=== PATIENT | male | born 1955 | race Caucasian/White ===

== ENCOUNTER → 2016-06-12 | Outpatient (CLI) | payer OTHER ==
[~2016-06-12] MED LIST: ACET325T96 PO; ACET650S10 PR; AMIO200T4 PO; APIX1TAB3 PO; B COLIQ PO; B-CO1TAB PO; BISA10SU3 PR; CALC667C4 PO; CHOL4POW3 PO; DXY100 PO; ESCI10TA17 PO; FERR1TAB68 PO; FINA5TAB PO; FLR1 PO; FLUD0.1T10 PO; FLUO20CA35 PO; GABA1CAP5 PO; INDO-22 PO; KFL250 PO; LATA0.009 OPL; LATA0.5S OPL; LCTX PO; LEVO100T PO; LEVO1TAB35 PO; LIDO1KIT TD; MIDO2.5T PO; MOML PO; MTRCR45 TOP; MTRG45 TOP; NRN400 PO; NUTR-773 PO; OMEP20CA9 PO; OXYC-57 PO; OXYC2.5T3 PO; POLY1POW2 PO; POLY335019 PO; PRLSR20 PO; PRMT25 PO; PROM25TA9 PO; RST15 PO; SEVE800T7 PO; SODIENE PR; SUCR1TAB29 PO; SUCR5SUS PO; TEMA15CA4 PO; VNCE1000 IV; ZNTT/150 PO; [UNRECOGNIZED DRUG - CODE] IV
--- NOTE | 2016-06-12 13:08 | DIAGNOSTIC IMAGING REPORT ---
CT SCAN OF THE ABDOMEN AND PELVIS WITHOUT IV CONTRAST CLINICAL HISTORY: End-stage renal disease. COMPARISON STUDY: Abdominal CT dated 03/06/2016. TECHNIQUE: CT scan of the abdomen and pelvis is performed from the lung bases to the proximal femora. Images are reviewed in the axial, sagittal, and coronal planes. IV contrast was not administered as per the referring clinician due to poor renal function. Note that the examination is suboptimal without oral and IV contrast. The examination is degraded by large body habitus, and streak artifact from the body wall abutting the CT gantry. Automated dose control exposure was utilized. CT DOSE: 1025.60 mGy.cm FINDINGS: Lung bases: The heart is mildly enlarged and there is a small pericardial effusion. The coronary arteries are densely calcified. There is bibasilar atelectasis. Scattered calcified granulomas are seen in the lower lobes. No airspace consolidation or pleural effusion is identified. Liver: The unenhanced liver is normal in size, contour, and attenuation. There is mild central intrahepatic biliary ductal dilatation. Small calcified hepatic granulomas are identified. Gallbladder: Surgically absent noting clips in the gallbladder fossa. Spleen: The spleen is mildly enlarged, measuring 13.5 cm in length. Pancreas: Atrophic. Adrenal glands: Unremarkable. Kidneys: The unenhanced kidneys are markedly atrophic and without hydronephrosis. Again seen is a 2.5 cm exophytic lesion arising from the interpolar right kidneys which does not meet CT criteria for a simple cyst. This was also shown to be hyperdense on the previous examination. A calcified subcapsular hematoma is again seen in the upper pole of the right kidney. Abdominal vasculature: The abdominal aorta is normal in course and caliber noting advanced atherosclerotic calcification. Stomach and bowel: There is a small to moderate hiatal hernia. There are postoperative changes consistent with a Tian-en-Y gastric bypass surgery. No bowel obstruction is seen. There is moderate colonic fecal retention. The appendix is well-visualized and normal. Peritoneum: There is a new intraperitoneal catheter identified from a midline pelvic approach. The tip is coiled in the lower pelvis. There is mild soft tissue thickening and stranding along the course of the catheter, best seen on images #[id number]. No intraperitoneal free air is seen. No abdominal ascites is identified. Lymphadenopathy: None. Pelvic viscera: Evaluation of the pelvis is degraded by streak artifact from orthopedic hardware in the left hip. There is retained IV contrast within the decompressed bladder. The bladder is decompressed and grossly unremarkable. The prostate gland is diminutive and heterogeneous. There are bilateral fat-containing inguinal hernias, left larger than right. Skeletal structures: The skeletal structures are osteopenic. No lytic or blastic lesions are seen. There are mild compression deformities of T11, T12, and L1. Mild lumbosacral spondylosis is observed. There are bilateral pars defects at L5 with minimal anterolisthesis at L5-S1. Postoperative changes are noted in the left hip. There is a healed left inferior pubic ring fracture. There are healed left-sided rib fractures and left transverse process fractures of lumbar spine. IMPRESSION: 1. A new intraperitoneal catheter is identified from a midline pelvic approach. The tip is coiled in the pelvis. Mild soft tissue thickening and stranding is identified along the course of the catheter. Infection is not excluded. 2. No intraperitoneal free air or abdominal ascites is identified. 3. There are postoperative changes consistent with a history of Tian-en-Y gastric bypass surgery. No bowel obstruction is seen. 4. The kidneys are markedly atrophic. A chronic calcified subcapsular hematoma is again noted on the right. This is unchanged from prior studies. 5. Again seen is an indeterminant 2.5 cm hyperdense exophytic lesion arising from the interpolar right kidney. This does not meet CT criteria for a simple cyst and had increased in size on prior examinations. This could represent a complex/hemorrhagic cyst. Follow-up with a nonemergent renal ultrasound is again recommended for further assessment and to exclude underlying mass lesion. 6. Cardiomegaly and small pericardial effusion. 7. Additional changes as detailed above. Electronically signed by: Wesley De Jesus M.D. 06/12/2016 1:06 PM Dictated Date/Time: 06/12/2016 12:53 PM
== END | disposition home or self-care (01) ==
LOC: C.CTS 12:09
PROVIDERS: ATTEND Surgery Vascular Surgery
DX: N18.6 End stage renal disease (principal)

== ENCOUNTER 2016-06-18 14:14 | Inpatient (IN) | payer OTHER ==
[~2016-06-18] VITALS: Ht 170.2 cm; Wt 85.7 kg
[2016-06-18] VITALS (19 sets, daily range): BP systolic 76–138; BP diastolic 45–79; PULSE 58–83; TEMP 36.5–36.8; O2SAT 92–100; BMI 28.7
[~2016-06-18 14:14] MED LIST changes: -ACET325T96 PO; -ACET650S10 PR; -APIX1TAB3 PO; -B COLIQ PO; -B-CO1TAB PO; -BISA10SU3 PR; -CHOL4POW3 PO; -DXY100 PO; -ESCI10TA17 PO; -FERR1TAB68 PO; -FLR1 PO; -FLUD0.1T10 PO; -FLUO20CA35 PO; -INDO-22 PO; -LATA0.5S OPL; -LCTX PO; -LEVO100T PO; -LEVO1TAB35 PO; -LIDO1KIT TD; -MIDO2.5T PO; -MOML PO; -MTRCR45 TOP; -MTRG45 TOP; -NRN400 PO; -OMEP20CA9 PO; -OXYC-57 PO; -POLY1POW2 PO; -PRLSR20 PO; -PROM25TA9 PO; -SEVE800T7 PO; -SODIENE PR; -SUCR1TAB29 PO; -SUCR5SUS PO; -TEMA15CA4 PO; -VNCE1000 IV; -ZNTT/150 PO; -[UNRECOGNIZED DRUG - CODE] IV
[2016-06-18] MEDS ORDERED: ONDANSETRON INJ 2 MG/ML 2 ML VIAL IV STA (14:24)
[2016-06-18] MEDS ORDERED: SODIUM CHLORIDE 0.9% 1000ML 500 ML IV STA (14:24)
[2016-06-18] MEDS ORDERED: PIPERACILLIN/TAZOBACTAM 4.5 GM/100ML D5W IV STA (14:55)
--- NOTE | 2016-06-18 15:06 | DIAGNOSTIC IMAGING REPORT ---
SINGLE VIEW CHEST CLINICAL HISTORY: Weakness. Change in mental status. FINDINGS: An AP, portable, upright chest radiograph is compared to study dated 03/06/2016. The examination is degraded by portable technique and patient rotation. A right subclavian central venous catheter is unchanged in position. The cardiomediastinal silhouette is unremarkable. There is atherosclerotic calcification of the thoracic aorta. There are low lung volumes and significant bibasilar atelectasis. No focal airspace consolidation, large pleural effusion, or pneumothorax is seen. The skeletal structures appear osteopenic. The bony thorax is grossly intact. IMPRESSION: Low lung volumes and bibasilar atelectasis with no acute cardiopulmonary abnormality. Electronically signed by: Wesley De Jesus M.D. 06/18/2016 3:05 PM Dictated Date/Time: 06/18/2016 3:04 PM
[2016-06-18 15:13] LABS: BASO % 0.5 %; BASO ABS # 0.02 K/uL (0-0.2); COMPLETE YES; EOS % 3.5 %; HEMATOCRIT 43.8 % (42-52); IG% 0.5 %; LYMPH % 21.3 %; LYMPH ABS # 0.79 K/uL (1.2-3.4); MEAN CELL VOLUME 92.8 fL (80-100); MEAN CORPUSCULAR HEMOGLOBIN 30.3 pg (25-34); MEAN CORPUSCULAR HGB CONC 32.6 g/dl (32-36); MEAN PLATELET VOLUME 11.3 fL (7.4-10.4); MONO % 14.8 %; NEUT % 59.4 %; PLATELET COUNT 206 K/uL (130-400); RED BLOOD COUNT 4.72 M/uL (4.7-6.1); WHITE BLOOD COUNT 3.71 K/uL (4.8-10.8)
[2016-06-18] MEDS ORDERED: SODIUM CHLORIDE 0.9% 500ML 500 ML IV STA ×2 (15:25→16:20)
[2016-06-18] MEDS ORDERED: BISA10SU3 PR (15:30)
[2016-06-18] MEDS ORDERED: TEMA15CA4 PO (16:11)
[2016-06-18] MEDS ORDERED: NOREPINEPHRINE BIT INJ 8 MG in DEXTROSE 5% 500ML 500 ML IV PRN (16:20)
[2016-06-18] MEDS ORDERED: ACETAMINOPHEN 325 MG TAB PO PRN (16:30)
[2016-06-18] MEDS ORDERED: ONDANSETRON INJ 2 MG/ML 2 ML VIAL IV PRN (16:30)
[2016-06-18] MEDS ORDERED: TEMAZEPAM 15 MG CAP PO PRN (16:30)
[2016-06-18] MEDS: ALBUMIN HUMAN 25% 12.5 GM/50 ML VIAL IV SCH ×2 (17:04→17:13)
[2016-06-18 17:06] LABS: PARTIAL THROMBOPLASTIN RATIO 1.2; PROTHROMBIN TIME (PATIENT) 10.7 SECONDS (9.0-12.0)
[2016-06-18 17:27] LABS: ALKALINE PHOSPHATASE 194 U/L (45-117); ALT/SGPT 38 U/L (12-78); AST/SGOT 28 U/L (15-37); BLOOD UREA NITROGEN 21 mg/dl (7-18); BUN/CREATININE RATIO 5.5 (10-20); CALCIUM 7.7 mg/dl (8.5-10.1); CARBON DIOXIDE 19 mmol/L (21-32); CHLORIDE 99 mmol/L (98-107); GLUCOSE 70 mg/dl (70-99); POTASSIUM 3.5 mmol/L (3.5-5.1); SODIUM 134 mmol/L (136-145)
--- NOTE | 2016-06-18 17:37 | History and Physical ---
History & Physical Date & Time of Service: Jun 18, 2016 at 17:10 Chief Complaint: Illness, Weakness Primary Care Physician: RV. Hudson MD History of Present Illness Source: patient, hospital records This patient is a pleasant 60-year-old male that was transferred to the emergency department from dialysis today with reports of not feeling well and hypotension. The patient has a history of end-stage renal disease and typically undergoes dialysis Saturday, Saturday and Saturday. He reports "not feeling well" earlier today. He felt like he was possibly coming down with something over the weekend. He reports a mild headache and cough. He reports eating and drinking normally over the last several days. At dialysis, the patient began complaining of not feeling well. Vital signs were taken. The patient was found to be markedly hypotensive. He was also found to be tachycardic; therefore, he was transferred to the emergency department. He was able to complete almost all of his dialysis. He reportedly only missed approximately 15 minutes. Upon arrival in the ED, an EKG was performed and shows an accelerated junctional rhythm. The patient does note some heart palpitations earlier today. He denies any chest pain or shortness of breath. He did feel nauseous yesterday, but reports no vomiting. He denies any abdominal pain or diarrhea. No fever or chills. The patient is a fairly poor historian. He also does not know his medications. Past Medical/Surgical History Medical Problems: (1) Anemia Status: Chronic (2) CAD (coronary artery disease) Permanent Comment: per records- had acute ND in 07/2001 and 03/2010. 40% LAD and 30% circ obstruction noted in records- unknown date of cath. 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 (10) History of Clostridium difficile colitis Status: Chronic (11) History of CVA (cerebrovascular accident) Status: Chronic (12) History of GI bleed Permanent Comment: EGD 02/08/15- ulceration at gastrojejunal anastomosis from bastric bypass Colonoscopy 02/08/15- internal hemorrhoids Status: Chronic (13) History of methicillin resistant staphylococcus aureus (MRSA) Status: Chronic (14) History of non-ST elevation myocardial infarction (NSTEMI) Status: Chronic (15) Hyperlipidemia Nec/Nos Status: Chronic (16) Hypertension Nos Status: Chronic (17) Hypothyroidism Nos Status: Chronic (18) Migraine Status: Chronic (19) Morbid obesity Status: Chronic (20) Polyneuropathy in diabetes Status: Chronic (21) Proteinuria Status: Chronic (22) Vitamin D deficiency Status: Chronic Surgical Problems: (1) Great toe amputation status Status: Resolved (2) H/O gastric bypass Status: Chronic (3) H/O total hip arthroplasty Status: Chronic (4) History of cholecystectomy Status: Chronic (5) History of colonoscopy with polypectomy Permanent Comment: 09/22/2014- adenomatous polyps Status: Chronic (6) History of left below knee amputation Status: Chronic Family History FH: heart disease FATHER FHx: cancer FATHER Hypertension Social History Smoking Status: Never Smoker Alcohol Use: none Drug Use: none Marital Status: single Housing status: lives alone, other (lives at home with 24-hour caregivers) Occupational Status: disabled Multi-Drug Resistant Organisms History of MDRO: Yes Type of MDRO: MRSA Allergies Coded Allergies: No Known Allergies (Verified , `, 05/01/16) Home Medications Scheduled Amiodarone Hcl (Cordarone), 200 MG PO DAILY Apixaban (Eliquis), 5 MG PO Q12 B-Complex W/ C & Folic Acid (Nephronex), 5 ML PO BID Calcium Acetate (Phoslo 667 Mg), 3 CAP PO TIDM Enteral Nutrition Formula (Nepro Carb Steady), 1 CAN PO DAILY Escitalopram (Lexapro), 10 MG PO DAILY Finasteride (Proscar), 5 MG PO DAILY Gabapentin (Neurontin), 400 MG PO HS Gabapentin (Neurontin), 800 MG PO 3XWK Gabapentin (Neurontin), 400 MG PO TID Lactobacillus Acidophilus (Lactinex), 1 TAB PO BID Latanoprost 0.005% Oph (Xalatan 0.005% Oph), 1 DROP OPL HS Levothyroxine Sodium (Synthroid), 100 MCG PO DAILY Midodrine (Midodrine HCl), 2.5 MG PO UD Omeprazole (Prilosec), 20 MG PO DAILY Polyethylene Glycol 3350 (Miralax), 17 GM PO UD Scheduled PRN Acetaminophen Tab (Tylenol), 650 MG PO Q6 PRN for Pain or Fever Bisacodyl (Dulcolax), 1 SUPP WA DAILY PRN for Constipation Calcium Acetate (Phoslo 667 Mg), 1 CAP PO BID PRN for SNACKS Oxycodone/Acetaminophen 5MG/325MG (Percocet 5MG/325MG), 1 TABLET PO PRN UD PRN for Pain Temazepam (Restoril), 15 MG PO HS PRN for Sleep Review of Systems 10 system review performed and negative unless noted in HPI or below Physical Exam Vital Signs Date Time Temp Pulse Resp B/P Pulse Ox O2 Delivery O2 Flow Rate FiO2 06/18/16 17:05 69 18 77/52 06/18/16 16:28 70 68/47 06/18/16 15:50 79 18 87/40 95 Room Air 06/18/16 15:19 75 06/18/16 14:55 36.7 118 16 84/45 95 Room Air 06/18/16 14:55 95 Room Air GENERAL: 60-year-old male, appears older than stated age, history is somewhat limited, chronically ill in appearance SKIN: The skin was without rashes, erythema, edema, or bruising. HEAD: Normocephalic atraumatic. EYES: Right pupil reactive. Extraocular muscles intact. Left pupil nonreactive. Patient is blind in the left eye. MOUTH: Oral mucosa somewhat dry NECK: No lymphadenopathy. No JVD. HEART: Regular rate and rhythm without murmurs gallops or rubs. LUNGS: Clear to auscultation bilaterally without wheezes, rales or rhonchi. No accessory muscle use. ABDOMEN: Positive bowel sounds x 4.Soft, nontender, without organomegaly. No guarding or rebound tenderness. MUSCULOSKELETAL: Left BKA noted. No erythema, warmth or edema noted of the left stump. No erythema or edema noted in the right lower extremity NEURO: Patient was alert and oriented to person and place only. Confused on the year. Moving all extremities with difficulty. Strength 5/5 throughout Diagnostics Laboratory Results Results Past 24 Hours Test 06/18/16 14:45 06/18/16 16:31 06/18/16 16:50 Range/Units White Blood Count 3.71 4.8-10.8 K/uL Red Blood Count 4.72 4.7-6.1 M/uL Hemoglobin 14.3 14.0-18.0 g/dL Hematocrit 43.8 42-52 % Mean Corpuscular Volume 92.8 80-100 fL Mean Corpuscular Hemoglobin 30.3 25-34 pg Mean Corpuscular Hemoglobin Concent 32.6 32-36 g/dl Platelet Count 206 130-400 K/uL Mean Platelet Volume 11.3 7.4-10.4 fL Neutrophils (%) (Auto) 59.4 % Lymphocytes (%) (Auto) 21.3 % Monocytes (%) (Auto) 14.8 % Eosinophils (%) (Auto) 3.5 % Basophils (%) (Auto) 0.5 % Neutrophils # (Auto) 2.20 1.4-6.5 K/uL Lymphocytes # (Auto) 0.79 1.2-3.4 K/uL Monocytes # (Auto) 0.55 0.11-0.59 K/uL Eosinophils # (Auto) 0.13 0-0.5 K/uL Basophils # (Auto) 0.02 0-0.2 K/uL RDW Standard Deviation 51.3 36.4-46.3 fL RDW Coefficient of Variation 15.3 11.5-14.5 % Immature Granulocyte % (Auto) 0.5 % Immature Granulocyte # (Auto) 0.02 0.00-0.02 K/uL Prothrombin Time 10.7 9.0-12.0 SECONDS Prothromb Time International Ratio 1.0 0.9-1.1 Activated Partial Thromboplast Time 30.1 21.0-31.0 SECONDS Partial Thromboplastin Ratio 1.2 Lactic Acid Level 1.5 0.4-2.0 mmol/L Microbiology Results 06/18/16 Blood Culture, Received Pending 06/18/16 Blood Culture, Received Pending Diagnostic Radiology SINGLE VIEW CHEST CLINICAL HISTORY: Weakness. Change in mental status. FINDINGS: An AP, portable, upright chest radiograph is compared to study dated 03/06/2016. The examination is degraded by portable technique and patient rotation. A right subclavian central venous catheter is unchanged in position. The cardiomediastinal silhouette is unremarkable. There is atherosclerotic calcification of the thoracic aorta. There are low lung volumes and significant bibasilar atelectasis. No focal airspace consolidation, large pleural effusion, or pneumothorax is seen. The skeletal structures appear osteopenic. The bony thorax is grossly intact. IMPRESSION: Low lung volumes and bibasilar atelectasis with no acute cardiopulmonary abnormality. Electronically signed by: Wesley De Jesus M.D. 06/18/2016 3:05 PM Dictated Date/Time: 06/18/2016 3:04 PM The status of this report is Signed. Draft = Not yet reviewed or approved by Radiologist. Signed = Reviewed and approved by Radiologist. EKG Initial EKG shows an accelerated junctional rhythm with a rate of 120 bpm Repeat EKG shows sinus rhythm with a first-degree AV block. 82 bpm. Q waves noted in the inferior and septal leads Impression Assessment and Plan 60-year-old male with a history of end-stage renal disease found to be hypotensive and tachycardic at dialysis today. In a junctional rhythm upon arrival into the ED. Persistent hypo-tension. ? Sepsis possibly exacerbated by HD today Sepsis-source unknown at this point -Admit to ICU -Broad spectrum ABX (given hx of MRSA) with vancomycin, Levaquin, Zosyn -Begin Levophed titrate PRN -careful for fluid overload -Begin Tamiflu 150 mg BID -send flu PCR -hewitt cx -random cortisol level -send procalcitonin ? accelerated junctional rhythm-spontaneously converted to NSR. Not new -continue tele monitoring ESRD -nephrology consult ?? hx A fib -continue Eliquis 5 mg -continue amiodarone 200 mg daily Hypothyroidism -continue Synthroid 100 g daily -Check TSH, free T4 Peripheral neuropathy -Continue gabapentin 400 mg TID DVT prophylaxis -Eliquis -TEDS, SCDs CODE STATUS -LEVEL I FULL CODE Resuscitation Status FULL RESUSCITATION VTE Prophylaxis VTE Risk Assessment Done? Y/N: Yes Risk Level: Low Given or contraindicated: Other Anticoagulation, T.E.D. Stockings, SCD's Assessment and Plan Attending addendum: I have seen and examined this patient, have directed their medical care, and agree with the H&P as noted above.
[2016-06-18 17:40] LABS: ALB/GLOB RATIO 0.7 (0.9-2)
--- NOTE | 2016-06-18 17:43 | EMERGENCY ROOM VISIT NOTE ---
History Report prepared by Jason: Hazel Tarango Under the Supervision of: Dr. Wesley De Luna M.D. First contact with patient: 14:18 Chief Complaint: ILLNESS Stated Complaint: ILLNESS, WEAKNESS History of Present Illness The patient is a 60 year old male arriving by ambulance who presents to the Emergency Room with complaints of a sudden onset of weakness during his dialysis procedure just prior to arrival. Currently, he is in mild discomfort as he states that he feels generally unwell, which began with 20 minutes left in his dialysis procedure. Since the time of onset of symptoms, the patient has felt palpitations to his chest, and he states that he feels as if his heart is beating very quickly. He denies having chest pain or feeling short of breath. Over the past week, the patient states that he has had a cough, and he has not been eating or drinking normally secondary to lack of appetite. He denies having abdominal pain, and he has not felt nauseous or experienced any episodes of vomiting. The patient receives dialysis Saturday, Saturday and Fridays, and he no longer makes urine on his own. He states that he did not begin experiencing symptoms prior to his treatment today. Patient denies recent fevers , chills or other acute complaints. Patient has history of left BKA. He denies pain or signs of infection. Source of History: patient Onset: just prior to arrival Position: other (general) Symptom Intensity: mild Quality: other (weakness) Timing: other (sudden onset) Modifying Factors (Worsening): other (during dialysis) Associated Symptoms: + cough, + weakness, No SOB, No abdominal pain, No chest pain, No chills, No diarrhea, No fevers, No nausea, No urinary symptoms, No vomiting Note: Patient experienced palpitations and tachycardia. States that he has had a lack of appetite and has not been eating or drinking normally over the past few days. Review of Systems See HPI for pertinent positives & negatives. A total of 10 systems reviewed and were otherwise negative. Past Medical & Surgical Medical Problems: (1) Anemia (2) Arrhythmia (3) Bacteremia (4) CAD (coronary artery disease) (5) Congestive Heart Failure Nos (6) Depression (7) Diab W Oth Spec Manifest, Type Ii Or Unspec Type, Not Uncntr (8) Diabetic retinopathy (9) DM type 2 (diabetes mellitus, type 2) (10) End stage renal disease (11) ESRD (end stage renal disease) on dialysis (12) Fluency disorder following cerebrovascular accident (13) History of Clostridium difficile colitis (14) History of CVA (cerebrovascular accident) (15) History of GI bleed (16) History of methicillin resistant staphylococcus aureus (MRSA) (17) History of non-ST elevation myocardial infarction (NSTEMI) (18) Hyperkalemia (19) hyperkalemia, ESRD, wrist fx (20) Hyperlipidemia Nec/Nos (21) Hypertension Nos (22) Hypothyroidism Nos (23) Migraine (24) Morbid obesity (25) Peritonitis (26) Polyneuropathy in diabetes (27) Proteinuria (28) Vitamin D deficiency Surgical Problems: (1) Great toe amputation status (2) H/O gastric bypass (3) H/O total hip arthroplasty (4) History of cholecystectomy (5) History of colonoscopy with polypectomy (6) History of left below knee amputation Family History FH: heart disease FATHER FHx: cancer FATHER Hypertension Social History Smoking Status: Never Smoker Alcohol Use: occasionally Drug Use: none Marital Status: single Housing Status: fdc Occupation Status: disabled Current/Historical Medications Scheduled Amiodarone Hcl (Cordarone), 200 MG PO DAILY Apixaban (Eliquis), 5 MG PO Q12 B-Complex W/ C & Folic Acid (Nephronex), 5 ML PO BID Calcium Acetate (Phoslo 667 Mg), 3 CAP PO TIDM Enteral Nutrition Formula (Nepro Carb Steady), 1 CAN PO DAILY Escitalopram (Lexapro), 10 MG PO DAILY Finasteride (Proscar), 5 MG PO DAILY Gabapentin (Neurontin), 400 MG PO HS Gabapentin (Neurontin), 800 MG PO 3XWK Gabapentin (Neurontin), 400 MG PO TID Lactobacillus Acidophilus (Lactinex), 1 TAB PO BID Latanoprost 0.005% Oph (Xalatan 0.005% Oph), 1 DROP OPL HS Levothyroxine Sodium (Synthroid), 100 MCG PO DAILY Midodrine (Midodrine HCl), 2.5 MG PO UD Omeprazole (Prilosec), 20 MG PO DAILY Polyethylene Glycol 3350 (Miralax), 17 GM PO UD Scheduled PRN Acetaminophen Tab (Tylenol), 650 MG PO Q6 PRN for Pain or Fever Bisacodyl (Dulcolax), 1 SUPP MS DAILY PRN for Constipation Calcium Acetate (Phoslo 667 Mg), 1 CAP PO BID PRN for SNACKS Oxycodone/Acetaminophen 5MG/325MG (Percocet 5MG/325MG), 1 TABLET PO PRN UD PRN for Pain Temazepam (Restoril), 15 MG PO HS PRN for Sleep Allergies Coded Allergies: No Known Allergies (Verified , `, 05/01/16) Physical Exam Vital Signs Date Time Temp Pulse Resp B/P Pulse Ox O2 Delivery O2 Flow Rate FiO2 06/18/16 16:28 70 68/47 06/18/16 15:50 79 18 87/40 95 Room Air 06/18/16 15:19 75 06/18/16 14:55 36.7 118 16 84/45 95 Room Air 06/18/16 14:55 95 Room Air Physical Exam GENERAL: Patient is in no acute distress. HEENT: No acute trauma, normocephalic atraumatic, mucous membranes dry, no nasal congestion, no scleral icterus. NECK: No stridor, no adenopathy, no meningismus, trachea is midline. LUNGS: Clear to auscultation bilaterally, no wheeze, no rhonchi, breath sounds equal. HEART: Tachycardic with a subtle systolic murmur, rhythm is regular. ABDOMEN: Soft, nontender, bowel sounds positive, no hernias, no peritonitis. Peritoneal dialysis catheter in place. EXTREMITIES: Left BKA, stump without infection. No edema or cellulitis to the RLE. NEUROLOGIC: Oriented x 3, no acute motor or sensory deficits, no focal weakness. SKIN: No rash, no jaundice, no diaphoresis. Medical Decision & Procedures ER Provider Diagnostic Interpretation: X-ray results as stated below per interpretation by me and the radiologist: SINGLE VIEW CHEST CLINICAL HISTORY: Weakness. Change in mental status. FINDINGS: An AP, portable, upright chest radiograph is compared to study dated 03/06/2016. The examination is degraded by portable technique and patient rotation. A right subclavian central venous catheter is unchanged in position. The cardiomediastinal silhouette is unremarkable. There is atherosclerotic calcification of the thoracic aorta. There are low lung volumes and significant bibasilar atelectasis. No focal airspace consolidation, large pleural effusion, or pneumothorax is seen. The skeletal structures appear osteopenic. The bony thorax is grossly intact. IMPRESSION: Low lung volumes and bibasilar atelectasis with no acute cardiopulmonary abnormality. Electronically signed by: Wesley De Jesus M.D. 06/18/2016 3:05 PM Dictated Date/Time: 06/18/2016 3:04 PM Laboratory Results Test 06/18/16 16:31 Prothrombin Time 10.7 SECONDS (9.0-12.0) Prothromb Time International Ratio 1.0 (0.9-1.1) Activated Partial Thromboplast Time 30.1 SECONDS (21.0-31.0) Partial Thromboplastin Ratio 1.2 Lactic Acid Level 1.5 mmol/L (0.4-2.0) Magnesium Level 2.0 mg/dl (1.8-2.4) Total Bilirubin 0.5 mg/dl (0.2-1) Aspartate Amino Transf (AST/SGOT) 28 U/L (15-37) Alanine Aminotransferase (ALT/SGPT) 38 U/L (12-78) Alkaline Phosphatase 194 U/L (45-117) Total Protein 6.8 gm/dl (6.4-8.2) Albumin 2.8 gm/dl (3.4-5.0) Globulin 4.0 gm/dl (2.5-4.0) Albumin/Globulin Ratio 0.7 (0.9-2) Thyroid Stimulating Hormone (TSH) 7.210 uIu/ml (0.300-4.500) Free Thyroxine 1.37 ng/dl (0.80-1.60) Laboratory results reviewed by me. Medications Administered Medications (Trade) Dose Ordered Sig/Rigoberto Route Start Time Stop Time Status Last Admin Dose Admin Sodium Chloride (Nss 1000ml) 500 ml @ 999 mls/hr Q31M STAT IV 06/18/16 14:24 06/18/16 14:54 DC 06/18/16 14:24 999 MLS/HR Ondansetron HCl (Zofran Inj) 4 mg NOW STAT IV 06/18/16 14:24 06/18/16 14:29 DC 06/18/16 15:46 4 MG Piperacillin Sod/ Tazobactam Sod 4.5 gm 4.5 gm NOW STAT IV 06/18/16 14:55 06/18/16 14:57 DC 06/18/16 15:47 4.5 GM Sodium Chloride 500 ml @ 999 mls/hr Q31M STAT IV 06/18/16 15:25 06/18/16 15:55 DC 06/18/16 15:25 999 MLS/HR Norepinephrine Bitartrate/ Dextrose (Levophed Inj/ D5W 500ml) 508 ml @ 0 mls/hr Q0M PRN IV 06/18/16 16:20 07/18/16 16:19 06/18/16 17:14 31.1 MLS/HR ECG Indication: weakness Rate (beats per minute): 120 Rhythm: SVT Findings: no acute ischemic change, no ectopy, other (Old septal infarct. Possible old lateral infarct. ) Change: When compared to EKG from 05/01/16, rate has increased. Repeat EKG showed sinus rhythm at 82 BPM with 1st degree AV block and old septal infarct. No ectopy or acute ischemia. ED Course 1420: The patient was evaluated in room B4. A complete history and physical exam was performed. 1424: Zofran 4 mg IV and NSS 500 ml @ 999 mls/hr IV were ordered. 1455: Zosyn 4.5 hm IV was ordered. 1525: The patient was reevaluated at this time. His heart rate had improved as it is now in the high 80's. He will continue receiving fluids as he is still hypotensive. NSS 500 ml @ 999 mls/hr IV was ordered. A repeat EKG will also be taken. 1540: Upon reevaluation, the patient's blood pressure had improved and is now at 87, systolically. I updated him on the results of his radiology reports and lab tests. The hospitalist will be contacted. 1550: After discussion with Dr. Washburn, the patient will continue to be evaluated by the [facility] hospitalist for further management. He verbalized his understanding and agreement with this treatment plan. Medical Decision The patient is a 60 year old male who presents to the ED with complaints of a sudden onset of weakness during his dialysis appointment just prior to arrival. Differential diagnoses considered include dehydration, infection, sepsis, electrolyte imbalance, pneumonia, anemia, and DE. There is no leukocytosis or concerning anemia. Lactic acid level is not elevated making severe sepsis less likely. Renal panel testing shows an elevated creatinine consistent with his need for dialysis. No significant electrolyte abnormality requiring emergent correction. There was no hepatitis. No coagulopathy. EKG initially showed an SVT, he has had this rhythm before as the same rhythm was noted on the most recent EKG. Cardiac enzyme testing did not show evidence for acute cardiac injury. Chest x-ray shows no pneumonia , pneumothorax or CHF. Blood cultures are pending. The patient was given IV saline. 2 IVs were initiated. His rhythm converted to a sinus rhythm either with the saline infusion or just spontaneously. He felt better but his blood pressure remained low. A second bolus of saline was given. Blood pressure improved slightly but did not rise to over 100 systolic. Because of concerns for possible bacterial infection/sepsis, the patient was given a dose of IV Zosyn. The patient has been aggressively managed. He requires admission/observation. I did speak with him and he feels improved, I talked with case management. The on-call hospitalist was consulted. Consults Time Called: 1540 Consulting Physician: Dr. Washburn - [facility] Returned Call: 1540 Discussed the patient's case. He will continue to be evaluated by the [facility] hospitalist for further management. Impression Primary Impression: Hypotension Additional Impressions: Dehydration Weakness Critical Care I have personally spent greater than 30 minutes of critical care time in the direct management of this patient. This includes bedside care, interpretation of diagnostic studies and testing, discussion with consultants, the patient, and family members, and other required patient management activities. This 30 minutes is in excess of all separately billable procedures. Scribe Attestation The scribe's documentation has been prepared under my direction and personally reviewed by me in its entirety. I confirm that the note above accurately reflects all work, treatment, procedures, and medical decision making performed by me. Departure Information Dispostion Being Evaluated By Hospitalist ([facility]) Referrals RV. Hudson MD (PCP) Problem Qualifiers
[2016-06-18] MEDS ORDERED: LEVOFLOXACIN 750MG / D5W IV ONE (20:00)
[2016-06-18] MEDS ORDERED: OSELTAMIVIR PHOSPHATE SUSP 30 MG/5 ML UDP PO SCH ×2 (21:00)
[2016-06-18] MEDS: GABAPENTIN 400 MG CAP PO SCH (21:00)
[2016-06-18] MEDS: INSULIN ASPART 100 UNITS/ML 3 ML PEN SC SCH (21:00)
[2016-06-18] MEDS: APIXABAN 2.5 MG TAB PO SCH (21:00)
[2016-06-18] MEDS: LATANOPROST 0.005% OP SOLN 2.5 ML BTL OPL SCH (21:00)
--- NOTE | 2016-06-18 21:06 | Critical Care Consultation ---
Critical Care Consultation Date of Consultation: Jun 18, 2016. Attending Physician: Reason for Consultation: hypotension/ sepsis History of Present Illness This is a 60 yo m from [facility] with a h/o ESRD (followed by Dr Buchanan), DMII , h/o MRSA and C diff and post [place] x 2 that presented to us in the ED with Palpitations. He states that while he was getting dialysis done this morning for his ESRD he acutely felt weak and "his heart was racing" 20 minutes prior to completion of his dialysis. He states that he did not have any dizziness, headache, cheat pain, SOB just the palpitations which concerned him. He was then transferred to the ED. While in the ED he was found to have a rapid junctional rhythm which actually spontaneously converted. He was also hypotensive with systolic ranging between 70-80 and did not respond to fluids so it was decided that he would be started on Levophed. He did respond well on the Levophed. He currently states that he feels well and all of his symptoms have resolved. This is not a new rhythm and has been noted previous EKG, this was in April. In December of this year he has also had PSVT which spontaneously converted and also had a short pause prior to NSR. When asked about cardiology he states that he thinks he has one but is unsure. He is currently on Amiodarone and Eliquis for his arrhythmias. In the fall the patient was treated for peritonitis secondary to peritoneal dialysis. The offending agent was Proteus mirabilis. At the time, the access was removed and has just recently been replaced. He is not using this as of yet because he has access in his right subclavian. His dialysis is typically MWF. Past Medical/Surgical History H/O MRSA H/O C Diff A fibb PSVT Hypercholesterolemia s/p Gastric bypass s/p Amputation of left LE Diabetic polyneuropathy Total hip arthroplasty Cholecystectomy DM II Anemia Hypothyroidism Family History FH: heart disease FATHER FHx: cancer FATHER Hypertension Social History Smoking Status: Never Smoker Alcohol Use: none Drug Use: none Marital Status: single Housing Status: jail Occupation Status: disabled Allergies Coded Allergies: No Known Allergies (Verified , `, 05/01/16) Home Medications Scheduled Amiodarone Hcl (Cordarone), 200 MG PO DAILY Apixaban (Eliquis), 5 MG PO Q12 B-Complex W/ C & Folic Acid (Nephronex), 5 ML PO BID Calcium Acetate (Phoslo 667 Mg), 3 CAP PO TIDM Enteral Nutrition Formula (Nepro Carb Steady), 1 CAN PO DAILY Escitalopram (Lexapro), 10 MG PO DAILY Finasteride (Proscar), 5 MG PO DAILY Gabapentin (Neurontin), 400 MG PO HS Gabapentin (Neurontin), 800 MG PO 3XWK Gabapentin (Neurontin), 400 MG PO TID Lactobacillus Acidophilus (Lactinex), 1 TAB PO BID Latanoprost 0.005% Oph (Xalatan 0.005% Oph), 1 DROP OPL HS Levothyroxine Sodium (Synthroid), 100 MCG PO DAILY Midodrine (Midodrine HCl), 2.5 MG PO UD Omeprazole (Prilosec), 20 MG PO DAILY Polyethylene Glycol 3350 (Miralax), 17 GM PO UD Scheduled PRN Acetaminophen Tab (Tylenol), 650 MG PO Q6 PRN for Pain or Fever Bisacodyl (Dulcolax), 1 SUPP CO DAILY PRN for Constipation Calcium Acetate (Phoslo 667 Mg), 1 CAP PO BID PRN for SNACKS Oxycodone/Acetaminophen 5MG/325MG (Percocet 5MG/325MG), 1 TABLET PO PRN UD PRN for Pain Temazepam (Restoril), 15 MG PO HS PRN for Sleep Current Inpatient Medications Current Inpatient Medications Medications (Trade) Dose Ordered Sig/Rigoberto Route Start Time Stop Time Status Last Admin Dose Admin Acetaminophen (Tylenol Tab) 650 mg Q4H PRN PO 06/18/16 16:30 07/18/16 16:29 Ondansetron HCl (Zofran Inj) 4 mg Q6H PRN IV 06/18/16 16:30 07/18/16 16:29 Pantoprazole Sodium 40 mg 40 mg DAILY PO 06/19/16 09:00 07/19/16 08:59 Norepinephrine Bitartrate 8 mg/ Dextrose 508 ml @ 0 mls/hr Q0M PRN IV 06/18/16 16:20 07/18/16 16:19 06/18/16 17:14 31.1 MLS/HR Piperacillin Sod/ Tazobactam Sod 3.375 gm/Dextrose 115 ml @ 28.75 mls/ hr Q8 IV 06/18/16 22:00 06/28/16 21:59 UNV Levofloxacin/Prmx (Levaquin / D5W/ Premixed D5W) 100 ml @ 100 mls/hr Q24H IV 06/18/16 16:30 06/25/16 16:29 UNV Albumin Human (Albumin 25%) 12.5 gm TODAY@1700,1800 IV 06/18/16 17:00 06/18/16 23:59 06/18/16 17:13 12.5 GM Insulin Aspart (novoLOG ASPART) SLIDING SCALE G... ACHS SC 06/18/16 21:00 07/18/16 20:59 Calcium Acetate (Phoslo Cap) 2,001 mg TIDM PO 06/18/16 18:00 07/18/16 17:59 Escitalopram Oxalate (Lexapro Tab) 10 mg DAILY PO 06/19/16 09:00 07/19/16 08:59 Gabapentin (Neurontin Cap) 400 mg MoWeFr@2100 PO 06/18/16 21:00 07/18/16 20:59 Gabapentin (Neurontin Cap) 400 mg SuTuThSa@0900,1400,2200 PO 06/19/16 09:00 07/19/16 08:59 Latanoprost (Xalatan Oph Soln) 1 drops HS OPL 06/18/16 21:00 07/18/16 20:59 Levothyroxine Sodium (Synthroid Tab) 100 mcg DAILYBB PO 06/19/16 07:00 07/19/16 06:59 Midodrine (Proamatine Tab) 2.5 mg MoWeFr@0900,1400 PO 06/20/16 09:00 07/20/16 08:59 Temazepam (Restoril Cap) 15 mg HS PRN PO 06/18/16 16:30 07/18/16 16:29 Apixaban (Eliquis Tab) 5 mg Q12 PO 06/18/16 21:00 07/18/16 20:59 Oseltamivir Phosphate (Tamiflu Cap) 150 mg BID PO 06/18/16 17:15 06/23/16 17:14 UNV Review of Systems Constitutional: No fever Eyes: No worsening of vision ENT: No hearing loss Respiratory: No cough, No dyspnea at rest, No dyspnea on exertion, No shortness of breath, No sputum, No wheezing Cardiovascular: + palpitations, No chest pain Abdomen: No nausea, No pain, No vomiting Neurologic: + balance problems (BL), + numbness/tingling (BL), + weakness Endocrine: No fatigue Hematologic / Lymphatic: No abnormal bleeding/bruising Integumentary: No rash Physical Exam Date Time Temp Pulse Resp B/P Pulse Ox O2 Delivery O2 Flow Rate FiO2 06/18/16 18:50 65 18 115/57 95 Room Air 06/18/16 18:20 61 15 100 Room Air 06/18/16 18:15 61 12 06/18/16 18:14 127/60 06/18/16 18:10 59 15 96 Room Air 06/18/16 18:05 60 17 95 Room Air 06/18/16 18:00 60 12 95 Room Air 06/18/16 17:59 133/67 06/18/16 17:55 58 16 91 Room Air 06/18/16 17:50 59 15 94 Room Air 06/18/16 17:49 58 16 95 Room Air 06/18/16 17:44 59 14 97 Room Air 06/18/16 17:43 139/61 Room Air 06/18/16 17:39 58 14 96 06/18/16 17:34 57 13 97 Room Air 06/18/16 17:29 55 18 126/69 89 Room Air 06/18/16 17:28 56 18 95/64 91 Room Air 06/18/16 17:18 63 16 95/64 Room Air 06/18/16 17:11 83/62 06/18/16 17:10 Room Air 06/18/16 17:05 69 18 77/52 06/18/16 16:28 70 68/47 06/18/16 15:50 79 18 87/40 95 Room Air 06/18/16 15:19 75 06/18/16 14:55 36.7 118 16 84/45 95 Room Air 06/18/16 14:55 95 Room Air General Appearance: no apparent distress Head: normocephalic, atraumatic Eyes: normal inspection ENT: normal ENT inspection Neck: supple Respiratory/Chest: lungs clear, normal breath sounds, no respiratory distress, no accessory muscle use, + decreased breath sounds (bilat bases) Cardiovascular: regular rate, rhythm, no murmur Abdomen/GI: normal bowel sounds, non tender, soft Genitourinary - Male: normal male genitalia Back: normal inspection Extremities/Musculoskelatal: normal inspection, + pertinent finding ( amputation below the left knee) Neurologic/Psych: alert, oriented x 3 Skin: normal color, warm/dry, no rash Lymphatic: no adenopathy Laboratory Results Last 24 Hours Test 06/18/16 14:45 06/18/16 16:31 06/18/16 16:50 06/18/16 17:15 White Blood Count 3.71 K/uL Red Blood Count 4.72 M/uL Hemoglobin 14.3 g/dL Hematocrit 43.8 % Mean Corpuscular Volume 92.8 fL Mean Corpuscular Hemoglobin 30.3 pg Mean Corpuscular Hemoglobin Concent 32.6 g/dl Platelet Count 206 K/uL Mean Platelet Volume 11.3 fL Neutrophils (%) (Auto) 59.4 % Lymphocytes (%) (Auto) 21.3 % Monocytes (%) (Auto) 14.8 % Eosinophils (%) (Auto) 3.5 % Basophils (%) (Auto) 0.5 % Neutrophils # (Auto) 2.20 K/uL Lymphocytes # (Auto) 0.79 K/uL Monocytes # (Auto) 0.55 K/uL Eosinophils # (Auto) 0.13 K/uL Basophils # (Auto) 0.02 K/uL RDW Standard Deviation 51.3 fL RDW Coefficient of Variation 15.3 % Immature Granulocyte % (Auto) 0.5 % Immature Granulocyte # (Auto) 0.02 K/uL Prothrombin Time 10.7 SECONDS Prothromb Time International Ratio 1.0 Activated Partial Thromboplast Time 30.1 SECONDS Partial Thromboplastin Ratio 1.2 Sodium Level 134 mmol/L Potassium Level 3.5 mmol/L Chloride Level 99 mmol/L Carbon Dioxide Level 19 mmol/L Anion Gap 16.0 mmol/L Blood Urea Nitrogen 21 mg/dl Creatinine 3.80 mg/dl Est Creatinine Clear Calc Drug Dose 21.8 ml/min Estimated GFR () 19.1 Estimated GFR (Non- 16.4 BUN/Creatinine Ratio 5.5 Random Glucose 70 mg/dl Lactic Acid Level 1.5 mmol/L Calcium Level 7.7 mg/dl Magnesium Level 2.0 mg/dl Total Bilirubin 0.5 mg/dl Aspartate Amino Transf (AST/SGOT) 28 U/L Alanine Aminotransferase (ALT/SGPT) 38 U/L Alkaline Phosphatase 194 U/L Troponin I < 0.015 ng/ml Total Protein 6.8 gm/dl Albumin 2.8 gm/dl Globulin 4.0 gm/dl Albumin/Globulin Ratio 0.7 Thyroid Stimulating Hormone (TSH) 7.210 uIu/ml Free Thyroxine 1.37 ng/dl Diagnostic Results [~ rep ct add3]] SINGLE VIEW CHEST CLINICAL HISTORY: Weakness. Change in mental status. FINDINGS: An AP, portable, upright chest radiograph is compared to study dated 03/06/2016. The examination is degraded by portable technique and patient rotation. A right subclavian central venous catheter is unchanged in position. The cardiomediastinal silhouette is unremarkable. There is atherosclerotic calcification of the thoracic aorta. There are low lung volumes and significant bibasilar atelectasis. No focal airspace consolidation, large pleural effusion, or pneumothorax is seen. The skeletal structures appear osteopenic. The bony thorax is grossly intact. IMPRESSION: Low lung volumes and bibasilar atelectasis with no acute cardiopulmonary abnormality. Assessment & Plan 1. Sepsis secondary to any unknown source 2. Junctional arrhythmia 3. ESRD requiring dialysis 4. H/O C Diff CVS - Patient has had an echo in December 2015 - EF 55-60% LV normal in size and motion - Grade I diastolic failure - No significant stenosis or regurg - Levophed for bp control - central line has been placed - Patient may be a candidate for pacemaker considering his past SVT and now symptomatic junctional rhythm - continue amiodarone for now - TSH/ T4 - Magnesium GI - Diabetic diet Renal - Nephrology has been consulted and aware of admission - recheck daily BMP ID - Levo and Zosyn - empiric Tamiflu - procalcitonin pending - consider a very short course considering his history of C Diff Endo - Insulin aspart DVT Prophylaxis - Eliquis Full code Resident Physician Supervision Note: Dr. Newman was resident physician during care of patient. I separately evaluated patient and did history and exam. I discussed the case with the resident and generally agree with the findings and plan. Agent with a significant past medical history for end-stage renal disease on dialysis, history of accelerated junctional rhythms, arrhythmia, DVT on eliquis. Presents today after palpitations and accelerated junctional rhythm while in dialysis, reportedly the patient almost finished dialysis within 15 minutes is normal in time. I suspect the etiology of the palpitations would be just electrolyte imbalances and fluid shifts from the dialysis, however infectious etiologies and a acute coronary syndrome or in the differential. Initial set of cardiac enzymes are negative, the pro calcitonin is very minimally elevated not indicative of sepsis, patient has an adequate cortisol response. This point we will continue with antibiotics, blood cultures are pending, and advanced vascular access was obtained as patient is requiring a mild doses of vasopressors. Vision is poor vascular access in the vasopressors initially being administered through a 22-gauge IV in the hand, I considered safer to be centrally administered. I have personally spent 35 minutes of critical care time in the direct management of this patient. This is a life/limb threatening event. This includes time spent evaluating patient, direct bedside care, chart review, placing orders, interpretation of diagnostic studies, discussion with consultants, patient, and family members, as well as other required patient management activities. This time is exclusive of all separately billable procedures, and teaching time and separate from and in addition to any other critical care service time. Documented By: Everton Costa, DO Additional Copies To [facility]
[2016-06-18 21:17] LABS: VEN BLD GAS O2 SATURATION 71.1 %; VEN BLOOD GAS BASE EXCESS -8.7 mmol/L
--- NOTE | 2016-06-18 21:20 | DIAGNOSTIC IMAGING REPORT ---
CHEST ONE VIEW PORTABLE CLINICAL HISTORY: Central line placement. COMPARISON STUDY: Chest radiograph performed earlier today. FINDINGS: There is no pneumothorax. There has been interval placement of a left internal jugular central line. The catheter tip projects over the lateral aspect of the left upper hemithorax. The catheter is malpositioned. A right subclavian dual lumen catheter remains in place. The lung volumes are diminished. This is unchanged. There is no evidence of pulmonary edema. IMPRESSION: No pneumothorax. Malpositioned left internal jugular central line. Catheter tip projects over the lateral aspect of the left upper hemithorax. The location of the tip is indeterminate but possibly at the junction of the left subclavian and axillary veins. Electronically signed by: Micha Dial M.D. 06/18/2016 9:18 PM Dictated Date/Time: 06/18/2016 9:16 PM
[2016-06-18 21:44] LABS: INFLUENZA A PCR Neg for Influ A (NEG); INFLUENZA B PCR Neg for Influ B (NEG)
[2016-06-18] MEDS: CALCIUM ACETATE 667MG GELCAP PO SCH (22:00)
--- NOTE | 2016-06-18 22:31 | Procedure Note ---
Procedure Note Procedure Date Jun 18, 2016. Central Line Procedure time out: side/site verified, patient ID confirmed, sterile procedure used Time of procedure: 21:30 Performed by: attending (I was present during the entire procedure and assisted ), resident Indications: poor venous access, central drug admin. Prep: chlorhexadine prep, sterile drape, sterile procedures used Anesthesia: lidocaine 1% without epi Volume anesthetic (ml's): 3 Central line lumen: triple Central line location: internal jugular (L) Additional details: ultrasound guidance, Selinger technique used, line sutured , good blood return CXR: other (Traveled into the left subclavian) Complications: other (this line was discontinued and a second triple lumen was inserted please see additional procedure) Patient tolerated procedure: well Post-procedure vital signs: reviewed and stable Procedure Note Procedure Date Jun 18, 2016. Central Line Procedure time out: side/site verified Consent obtained: written Performed by: attending Indications: poor venous access, central drug admin. Prep: chlorhexadine prep, sterile drape, sterile procedures used Anesthesia: lidocaine 1% without epi Volume anesthetic (ml's): 2 Central line lumen: triple Central line location: internal jugular (L) Additional details: Selinger technique used (central venous access was a over a guidewire exchange from the prior CVL), line sutured, good blood return CXR: appropriate position Complications: none Patient tolerated procedure: well Post-procedure vital signs: reviewed and stable
--- NOTE | 2016-06-18 22:36 | DIAGNOSTIC IMAGING REPORT ---
CHEST ONE VIEW PORTABLE HISTORY: Assess CENTRAL LINE COMPARISON: Chest 06/18/2016. FINDINGS: Left jugular central venous catheter terminates at the expected location of the distal left brachiocephalic vein. Right subclavian central venous catheter terminates in the proximal SVC, unchanged. No pneumothorax. No pleural effusions. The heart is normal in size. There are low lung volumes. IMPRESSION: The left jugular central venous catheter terminates at the expected location of the distal left brachiocephalic vein. No pneumothorax. Electronically signed by: Emilio Le M.D. 06/18/2016 10:34 PM Dictated Date/Time: 06/18/2016 10:33 PM
[2016-06-19] VITALS (41 sets, daily range): BP systolic 86–132; BP diastolic 43–74; PULSE 48–73; TEMP 36.4–36.8; O2SAT 79–97
[2016-06-19] MEDS: PIPERACILL/TAZOBAC IV 4.5 GM in DEXTROSE 5% 100ML 100 ML IV SCH ×2 (02:02→13:31)
[2016-06-19] MEDS: LEVOTHYROXINE 100 MCG TAB PO SCH (05:50)
[2016-06-19 06:17] LABS: BASO % 0.5 %; BASO ABS # 0.02 K/uL (0-0.2); COMPLETE YES; EOS % 3.2 %; HEMATOCRIT 35.2 % (42-52); IG% 0.2 %; LYMPH % 16.8 %; LYMPH ABS # 0.68 K/uL (1.2-3.4); MEAN CELL VOLUME 94.6 fL (80-100); MEAN CORPUSCULAR HEMOGLOBIN 29.6 pg (25-34); MEAN CORPUSCULAR HGB CONC 31.3 g/dl (32-36); MEAN PLATELET VOLUME 10.3 fL (7.4-10.4); MONO % 15.3 %; PLATELET COUNT 210 K/uL (130-400); RED BLOOD COUNT 3.72 M/uL (4.7-6.1); WHITE BLOOD COUNT 4.05 K/uL (4.8-10.8)
[2016-06-19 07:00] LABS: BUN/CREATININE RATIO 5.8 (10-20); CALCIUM 7.8 mg/dl (8.5-10.1); CREATININE 4.9 mg/dl (0.60-1.40); POTASSIUM 3.9 mmol/L (3.5-5.1)
[2016-06-19] MEDS: CALCIUM ACETATE 667MG GELCAP PO SCH ×3 (07:31→16:12)
[2016-06-19] MEDS: GABAPENTIN 400 MG CAP PO SCH ×3 (07:32→21:39)
[2016-06-19] MEDS: APIXABAN 2.5 MG TAB PO SCH ×2 (07:32→21:41)
[2016-06-19] MEDS: ESCITALOPRAM OXALATE 10 MG TAB PO SCH (07:32)
[2016-06-19] MEDS: INSULIN ASPART 100 UNITS/ML 3 ML PEN SC SCH ×4 (07:36→21:45)
--- NOTE | 2016-06-19 08:30 | Critical Care Progress Note ---
Critical Care Progress Note Date of Service Jun 19, 2016. Attending Dr. Costa Subjective No acute events overnight Patient slept well overnight without any other episodes of tachycardia Levophed wean is currently 0.04 and patient tolerating well Patient does not have any concerns at this time, denies any pain Denies any palpitations, abdominal discomfort, chest pain, SOB, cough, dizziness He does have BL peripheral neuropathy Objective General: not in acute distress. laying comfortably in bed Skin: no rashes noted, no suspicious lesions, no areas of inflammations/ lacerations/ erythema noted CVS: S1/ S2 noted, RRR, no rubs/ murmurs noted, no cyanosis RVS: Clear throughout bilaterally, not in acute respiratory distress, no wheezing/ rales/ crackles noted ENT: poor dentition Neck: inspection WNL, full ROM of neck, central line in left IJ ABD: BSx4, no pain/ tenderness on palpation, no organomegaly,no distention noted MSK: inspection of all limbs WNL except for a noted amputation of the left LE, no swelling/ pain on palpation of joints, requires assistance for ambulation NVS: a+O x3, mood stable Lymph: No lymphadenopathy palpable Assessment & Plan 1. Sepsis secondary to any unknown source 2. Undifferentiated Hypotension 3. Junctional arrhythmia 4. ESRD requiring dialysis 5. H/O C Diff CVS - Patient has had an echo in December 2015 - EF 55-60% LV normal in size and motion - Grade I diastolic failure - No significant stenosis or regurg - Levophed for bp control - currently on 0.04 and doing well, expect to wean by the end of today - central line has been placed - left IJ - CVS has been consulted - continue amiodarone for now - TSH/ T4- TSH elevated by free T4 WNL - Magnesium- WNL - Troponin slightly elevated, continue to trend but most likely supply and demand GI - Diabetic diet - protonix bid Renal - Nephrology has been consulted and aware of admission - plan is for dialysis tomorrow - recheck daily BMP - strict I&O ID - Levo and Zosyn - vanco added - blood cultures are pending- consider deescalating abx once resulted - empiric Tamiflu - d/c - procalcitonin 0.6- ESRD vs infection, will trend - consider a very short course considering his history of C Diff Endo - Insulin aspart DVT Prophylaxis - Xochilt Full code Resident Physician Supervision Note: Dr. Newman was resident physician during care of patient. I separately evaluated patient and did history and exam. I discussed the case with the resident and generally agree with the findings and plan. I highly doubt sepsis, and undifferentiated hypotension requiring vasoactive medications is likely multi-factorial. Repeat cortisol is low and we will give the patient 100mg hydrocortisone and this will hopefully improve his blood pressures. I have personally spent 33 minutes of critical care time in the direct management of this patient. This is a life/limb threatening event. This includes time spent evaluating patient, direct bedside care, chart review, placing orders, interpretation of diagnostic studies, discussion with consultants, patient, and family members, as well as other required patient management activities. This time is exclusive of all separately billable procedures, and teaching time and separate from and in addition to any other critical care service time. Documented By: Everton Costa DO Data Medications: Current Inpatient Medications Medications (Trade) Dose Ordered Sig/Rigoberto Route Start Time Stop Time Status Last Admin Dose Admin Acetaminophen (Tylenol Tab) 650 mg Q4H PRN PO 06/18/16 16:30 07/18/16 16:29 Ondansetron HCl (Zofran Inj) 4 mg Q6H PRN IV 06/18/16 16:30 07/18/16 16:29 Pantoprazole Sodium 40 mg 40 mg DAILY PO 06/19/16 09:00 07/19/16 08:59 06/19/16 07:33 40 MG Norepinephrine Bitartrate 8 mg/ Dextrose 508 ml @ 0 mls/hr Q0M PRN IV 06/18/16 16:20 07/18/16 16:19 06/18/16 17:14 31.1 MLS/HR Piperacillin Sod/ Tazobactam Sod 4.5 gm/Dextrose 120 ml @ 30 mls/hr Q12@0200,1400 IV 06/19/16 02:00 06/28/16 21:59 06/19/16 02:02 30 MLS/HR Levofloxacin/Prmx (Levaquin / D5W/ Premixed D5W) 100 ml @ 100 mls/hr Q48H IV 06/20/16 20:00 06/25/16 23:59 Insulin Aspart (novoLOG ASPART) SLIDING SCALE G... ACHS SC 06/18/16 21:00 07/18/16 20:59 Calcium Acetate (Phoslo Cap) 2,001 mg TIDM PO 06/18/16 18:00 07/18/16 17:59 06/19/16 07:31 2,001 MG Escitalopram Oxalate (Lexapro Tab) 10 mg DAILY PO 06/19/16 09:00 07/19/16 08:59 06/19/16 07:32 10 MG Gabapentin (Neurontin Cap) 400 mg MoWeFr@2100 PO 06/18/16 21:00 07/18/16 20:59 06/18/16 21:00 400 MG Gabapentin (Neurontin Cap) 400 mg SuTuThSa@0900,1400,2200 PO 06/19/16 09:00 07/19/16 08:59 06/19/16 07:32 400 MG Latanoprost (Xalatan Oph Soln) 1 drops HS OPL 06/18/16 21:00 07/18/16 20:59 Levothyroxine Sodium (Synthroid Tab) 100 mcg DAILYBB PO 06/19/16 06:00 07/19/16 06:59 06/19/16 05:50 100 MCG Midodrine (Proamatine Tab) 2.5 mg MoWeFr@0900,1400 PO 06/20/16 09:00 07/20/16 08:59 Temazepam (Restoril Cap) 15 mg HS PRN PO 06/18/16 16:30 07/18/16 16:29 Apixaban (Eliquis Tab) 5 mg Q12 PO 06/18/16 21:00 07/18/16 20:59 06/19/16 07:32 5 MG I & O: 24-Hour Column 06/19/16 08:00 Intake Total 807 ml Balance 807 ml Vital Signs: Date Time Temp Pulse Resp B/P Pulse Ox O2 Delivery O2 Flow Rate FiO2 06/19/16 06:00 60 12 121/61 96 Room Air 06/19/16 04:00 Room Air 06/19/16 04:00 36.8 63 13 125/71 97 Room Air 06/19/16 02:00 62 13 86/43 93 Room Air 06/18/16 23:59 Room Air 06/18/16 23:59 36.8 72 12 115/55 94 Room Air 06/18/16 22:58 66 18 118/71 95 06/18/16 22:28 64 11 112/62 92 06/18/16 22:13 71 12 95/59 94 06/18/16 21:58 72 13 101/58 92 06/18/16 21:43 72 11 110/53 94 06/18/16 21:28 78 13 102/58 96 06/18/16 21:14 81 10 117/69 95 06/18/16 20:58 83 12 138/79 99 06/18/16 20:43 64 11 122/72 100 06/18/16 20:28 59 11 124/65 100 06/18/16 20:13 58 12 138/64 99 06/18/16 20:00 Room Air 06/18/16 20:00 36.5 60 12 98 06/18/16 19:58 59 9 134/64 97 06/18/16 19:53 69 14 113/62 97 06/18/16 19:45 70 14 98 06/18/16 19:35 75 12 76/45 93 06/18/16 19:30 63 10 94 06/18/16 19:13 69 16 96/56 06/18/16 18:50 65 18 115/57 95 Room Air 06/18/16 18:20 61 15 100 Room Air 06/18/16 18:15 61 12 06/18/16 18:14 127/60 06/18/16 18:10 59 15 96 Room Air 06/18/16 18:05 60 17 95 Room Air 06/18/16 18:00 60 12 95 Room Air 06/18/16 17:59 133/67 06/18/16 17:55 58 16 91 Room Air 06/18/16 17:50 59 15 94 Room Air 06/18/16 17:49 58 16 95 Room Air 06/18/16 17:44 59 14 97 Room Air 06/18/16 17:43 139/61 Room Air 06/18/16 17:39 58 14 96 06/18/16 17:34 57 13 97 Room Air 06/18/16 17:29 55 18 126/69 89 Room Air 06/18/16 17:28 56 18 95/64 91 Room Air 06/18/16 17:18 63 16 95/64 Room Air 06/18/16 17:11 83/62 06/18/16 17:10 Room Air 06/18/16 17:05 69 18 77/52 06/18/16 16:28 70 68/47 06/18/16 15:50 79 18 87/40 95 Room Air 06/18/16 15:19 75 06/18/16 14:55 36.7 118 16 84/45 95 Room Air 06/18/16 14:55 95 Room Air Laboratory Results: Last 24 Hours Test 06/18/16 14:45 06/18/16 16:31 06/18/16 19:45 06/18/16 20:35 White Blood Count 3.71 K/uL Red Blood Count 4.72 M/uL Hemoglobin 14.3 g/dL Hematocrit 43.8 % Mean Corpuscular Volume 92.8 fL Mean Corpuscular Hemoglobin 30.3 pg Mean Corpuscular Hemoglobin Concent 32.6 g/dl Platelet Count 206 K/uL Mean Platelet Volume 11.3 fL Neutrophils (%) (Auto) 59.4 % Lymphocytes (%) (Auto) 21.3 % Monocytes (%) (Auto) 14.8 % Eosinophils (%) (Auto) 3.5 % Basophils (%) (Auto) 0.5 % Neutrophils # (Auto) 2.20 K/uL Lymphocytes # (Auto) 0.79 K/uL Monocytes # (Auto) 0.55 K/uL Eosinophils # (Auto) 0.13 K/uL Basophils # (Auto) 0.02 K/uL RDW Standard Deviation 51.3 fL RDW Coefficient of Variation 15.3 % Immature Granulocyte % (Auto) 0.5 % Immature Granulocyte # (Auto) 0.02 K/uL Prothrombin Time 10.7 SECONDS Prothromb Time International Ratio 1.0 Activated Partial Thromboplast Time 30.1 SECONDS Partial Thromboplastin Ratio 1.2 Sodium Level 134 mmol/L Potassium Level 3.5 mmol/L Chloride Level 99 mmol/L Carbon Dioxide Level 19 mmol/L Anion Gap 16.0 mmol/L Blood Urea Nitrogen 21 mg/dl Creatinine 3.80 mg/dl Est Creatinine Clear Calc Drug Dose 21.8 ml/min Estimated GFR () 19.1 Estimated GFR (Non- 16.4 BUN/Creatinine Ratio 5.5 Random Glucose 70 mg/dl Lactic Acid Level 1.5 mmol/L Calcium Level 7.7 mg/dl Magnesium Level 2.0 mg/dl Total Bilirubin 0.5 mg/dl Aspartate Amino Transf (AST/SGOT) 28 U/L Alanine Aminotransferase (ALT/SGPT) 38 U/L Alkaline Phosphatase 194 U/L Troponin I < 0.015 ng/ml Total Protein 6.8 gm/dl Albumin 2.8 gm/dl Globulin 4.0 gm/dl Albumin/Globulin Ratio 0.7 Thyroid Stimulating Hormone (TSH) 7.210 uIu/ml Free Thyroxine 1.37 ng/dl Influenza Type A (RT-PCR) Neg for Influ A Influenza Type B (RT-PCR) Neg for Influ B Bedside Glucose 132 mg/dl Test 06/18/16 20:38 06/19/16 05:16 06/19/16 05:23 Venous Blood pH 7.26 Venous Blood Partial Pressure CO2 40 mmHg Venous Blood Partial Pressure O2 42 mmHg Venous Blood HCO3 18 mmol/L Venous Blood Oxygen Saturation 71.1 % Venous Blood Base Excess -8.7 mmol/L Procalcitonin 0.60 ng/mL Random Cortisol 18.07 mcg/dl White Blood Count 4.05 K/uL Red Blood Count 3.72 M/uL Hemoglobin 11.0 g/dL Hematocrit 35.2 % Mean Corpuscular Volume 94.6 fL Mean Corpuscular Hemoglobin 29.6 pg Mean Corpuscular Hemoglobin Concent 31.3 g/dl Platelet Count 210 K/uL Mean Platelet Volume 10.3 fL Neutrophils (%) (Auto) 64.0 % Lymphocytes (%) (Auto) 16.8 % Monocytes (%) (Auto) 15.3 % Eosinophils (%) (Auto) 3.2 % Basophils (%) (Auto) 0.5 % Neutrophils # (Auto) 2.59 K/uL Lymphocytes # (Auto) 0.68 K/uL Monocytes # (Auto) 0.62 K/uL Eosinophils # (Auto) 0.13 K/uL Basophils # (Auto) 0.02 K/uL RDW Standard Deviation 51.9 fL RDW Coefficient of Variation 15.0 % Immature Granulocyte % (Auto) 0.2 % Immature Granulocyte # (Auto) 0.01 K/uL Sodium Level 135 mmol/L Potassium Level 3.9 mmol/L Chloride Level 99 mmol/L Carbon Dioxide Level 21 mmol/L Anion Gap 15.0 mmol/L Blood Urea Nitrogen 29 mg/dl Creatinine 4.90 mg/dl Est Creatinine Clear Calc Drug Dose 16.7 ml/min Estimated GFR () 14.0 Estimated GFR (Non- 12.1 BUN/Creatinine Ratio 5.8 Random Glucose 89 mg/dl Calcium Level 7.8 mg/dl Bedside Glucose 89 mg/dl
[2016-06-19] MEDS ORDERED: VANCOMYCIN 1GM/270ML NSS IV SCH (08:45)
[2016-06-19] MEDS ORDERED: PANTOprazole SOD 40 MG TAB PO SCH (09:00)
--- NOTE | 2016-06-19 09:10 | Progress Note ---
Subjective Date of Service: Jun 19, 2016. Subjective Pt evaluation today including: conversation w/ patient, physical exam, chart review, lab review, review of studies Problem List Medical Problems: (1) Abdominal pain Status: Acute (2) C. difficile colitis Status: Acute (3) Colitis Status: Acute (4) Dehydration Status: Acute (5) Fever Status: Acute (6) Hypotension Status: Acute (7) Infection associated with peritoneal dialysis catheter Status: Acute (8) Periumbilical abdominal pain Status: Acute (9) Weakness Status: Acute Review of Systems Constitutional: No fever Eyes: No worsening of vision ENT: No hearing loss Respiratory: No cough, No shortness of breath Cardiac: No chest pain, No palpitations Abdomen: No diarrhea, No nausea, No pain, No vomiting Musculoskeletal: No joint pain Endo: No fatigue Skin: No rash Medications Current Inpatient Medications Medications (Trade) Dose Ordered Sig/Rigoberto Route Start Time Stop Time Status Last Admin Dose Admin Acetaminophen (Tylenol Tab) 650 mg Q4H PRN PO 06/18/16 16:30 07/18/16 16:29 Ondansetron HCl (Zofran Inj) 4 mg Q6H PRN IV 06/18/16 16:30 07/18/16 16:29 Pantoprazole Sodium 40 mg 40 mg DAILY PO 06/19/16 09:00 07/19/16 08:59 06/19/16 07:33 40 MG Norepinephrine Bitartrate 8 mg/ Dextrose 508 ml @ 0 mls/hr Q0M PRN IV 06/18/16 16:20 07/18/16 16:19 06/18/16 17:14 31.1 MLS/HR Piperacillin Sod/ Tazobactam Sod 4.5 gm/Dextrose 120 ml @ 30 mls/hr Q12@0200,1400 IV 06/19/16 02:00 06/28/16 21:59 06/19/16 02:02 30 MLS/HR Levofloxacin/Prmx (Levaquin / D5W/ Premixed D5W) 100 ml @ 100 mls/hr Q48H IV 06/20/16 20:00 06/25/16 23:59 Insulin Aspart (novoLOG ASPART) SLIDING SCALE G... ACHS SC 06/18/16 21:00 07/18/16 20:59 Calcium Acetate (Phoslo Cap) 2,001 mg TIDM PO 06/18/16 18:00 07/18/16 17:59 06/19/16 07:31 2,001 MG Escitalopram Oxalate (Lexapro Tab) 10 mg DAILY PO 06/19/16 09:00 07/19/16 08:59 06/19/16 07:32 10 MG Gabapentin (Neurontin Cap) 400 mg MoWeFr@2100 PO 06/18/16 21:00 07/18/16 20:59 06/18/16 21:00 400 MG Gabapentin (Neurontin Cap) 400 mg SuTuThSa@0900,1400,2200 PO 06/19/16 09:00 07/19/16 08:59 06/19/16 07:32 400 MG Latanoprost (Xalatan Oph Soln) 1 drops HS OPL 06/18/16 21:00 07/18/16 20:59 Levothyroxine Sodium (Synthroid Tab) 100 mcg DAILYBB PO 06/19/16 06:00 07/19/16 06:59 06/19/16 05:50 100 MCG Midodrine (Proamatine Tab) 2.5 mg MoWeFr@0900,1400 PO 06/20/16 09:00 07/20/16 08:59 Temazepam (Restoril Cap) 15 mg HS PRN PO 06/18/16 16:30 07/18/16 16:29 Apixaban (Eliquis Tab) 5 mg Q12 PO 06/18/16 21:00 07/18/16 20:59 06/19/16 07:32 5 MG Objective Vital Signs Date Time Temp Pulse Resp B/P Pulse Ox O2 Delivery O2 Flow Rate FiO2 06/19/16 06:00 60 12 121/61 96 Room Air 06/19/16 04:00 Room Air 06/19/16 04:00 36.8 63 13 125/71 97 Room Air 06/19/16 02:00 62 13 86/43 93 Room Air 06/18/16 23:59 Room Air 06/18/16 23:59 36.8 72 12 115/55 94 Room Air 06/18/16 22:58 66 18 118/71 95 06/18/16 22:28 64 11 112/62 92 06/18/16 22:13 71 12 95/59 94 06/18/16 21:58 72 13 101/58 92 06/18/16 21:43 72 11 110/53 94 06/18/16 21:28 78 13 102/58 96 06/18/16 21:14 81 10 117/69 95 06/18/16 20:58 83 12 138/79 99 06/18/16 20:43 64 11 122/72 100 06/18/16 20:28 59 11 124/65 100 06/18/16 20:13 58 12 138/64 99 06/18/16 20:00 Room Air 06/18/16 20:00 36.5 60 12 98 06/18/16 19:58 59 9 134/64 97 06/18/16 19:53 69 14 113/62 97 06/18/16 19:45 70 14 98 06/18/16 19:35 75 12 76/45 93 06/18/16 19:30 63 10 94 06/18/16 19:13 69 16 96/56 06/18/16 18:50 65 18 115/57 95 Room Air 06/18/16 18:20 61 15 100 Room Air 06/18/16 18:15 61 12 06/18/16 18:14 127/60 06/18/16 18:10 59 15 96 Room Air 06/18/16 18:05 60 17 95 Room Air 06/18/16 18:00 60 12 95 Room Air 06/18/16 17:59 133/67 06/18/16 17:55 58 16 91 Room Air 06/18/16 17:50 59 15 94 Room Air 06/18/16 17:49 58 16 95 Room Air 06/18/16 17:44 59 14 97 Room Air 06/18/16 17:43 139/61 Room Air 06/18/16 17:39 58 14 96 06/18/16 17:34 57 13 97 Room Air 06/18/16 17:29 55 18 126/69 89 Room Air 06/18/16 17:28 56 18 95/64 91 Room Air 06/18/16 17:18 63 16 95/64 Room Air 06/18/16 17:11 83/62 06/18/16 17:10 Room Air 06/18/16 17:05 69 18 77/52 06/18/16 16:28 70 68/47 06/18/16 15:50 79 18 87/40 95 Room Air 06/18/16 15:19 75 06/18/16 14:55 36.7 118 16 84/45 95 Room Air 06/18/16 14:55 95 Room Air Physical Exam General Appearance: WD/WN, no apparent distress Eyes: normal inspection, PERRL, EOMI ENT: normal ENT inspection, hearing grossly normal Neck: supple, thyroid normal Respiratory/Chest: lungs clear, normal breath sounds, no respiratory distress, no accessory muscle use, + pertinent finding (HD cath looks clean) Cardiovascular: regular rate, rhythm, no edema, no gallop, no JVD, no murmur Abdomen: normal bowel sounds, non tender, soft, + pertinent finding (PD cath looks clean, minimal discharge, not purulent) Extremities: normal range of motion, non-tender, normal inspection Neurologic/Psychiatric: manager of global II-XII nml as tested, no motor/sensory deficits, alert, normal mood/affect Skin: normal color, warm/dry, no rash Laboratory Results Last 24 Hours Test 06/18/16 14:45 06/18/16 16:31 06/18/16 19:45 06/18/16 20:35 White Blood Count 3.71 K/uL Red Blood Count 4.72 M/uL Hemoglobin 14.3 g/dL Hematocrit 43.8 % Mean Corpuscular Volume 92.8 fL Mean Corpuscular Hemoglobin 30.3 pg Mean Corpuscular Hemoglobin Concent 32.6 g/dl Platelet Count 206 K/uL Mean Platelet Volume 11.3 fL Neutrophils (%) (Auto) 59.4 % Lymphocytes (%) (Auto) 21.3 % Monocytes (%) (Auto) 14.8 % Eosinophils (%) (Auto) 3.5 % Basophils (%) (Auto) 0.5 % Neutrophils # (Auto) 2.20 K/uL Lymphocytes # (Auto) 0.79 K/uL Monocytes # (Auto) 0.55 K/uL Eosinophils # (Auto) 0.13 K/uL Basophils # (Auto) 0.02 K/uL RDW Standard Deviation 51.3 fL RDW Coefficient of Variation 15.3 % Immature Granulocyte % (Auto) 0.5 % Immature Granulocyte # (Auto) 0.02 K/uL Prothrombin Time 10.7 SECONDS Prothromb Time International Ratio 1.0 Activated Partial Thromboplast Time 30.1 SECONDS Partial Thromboplastin Ratio 1.2 Sodium Level 134 mmol/L Potassium Level 3.5 mmol/L Chloride Level 99 mmol/L Carbon Dioxide Level 19 mmol/L Anion Gap 16.0 mmol/L Blood Urea Nitrogen 21 mg/dl Creatinine 3.80 mg/dl Est Creatinine Clear Calc Drug Dose 21.8 ml/min Estimated GFR () 19.1 Estimated GFR (Non- 16.4 BUN/Creatinine Ratio 5.5 Random Glucose 70 mg/dl Lactic Acid Level 1.5 mmol/L Calcium Level 7.7 mg/dl Magnesium Level 2.0 mg/dl Total Bilirubin 0.5 mg/dl Aspartate Amino Transf (AST/SGOT) 28 U/L Alanine Aminotransferase (ALT/SGPT) 38 U/L Alkaline Phosphatase 194 U/L Troponin I < 0.015 ng/ml Total Protein 6.8 gm/dl Albumin 2.8 gm/dl Globulin 4.0 gm/dl Albumin/Globulin Ratio 0.7 Thyroid Stimulating Hormone (TSH) 7.210 uIu/ml Free Thyroxine 1.37 ng/dl Influenza Type A (RT-PCR) Neg for Influ A Influenza Type B (RT-PCR) Neg for Influ B Bedside Glucose 132 mg/dl Test 06/18/16 20:38 06/19/16 05:16 06/19/16 05:23 Venous Blood pH 7.26 Venous Blood Partial Pressure CO2 40 mmHg Venous Blood Partial Pressure O2 42 mmHg Venous Blood HCO3 18 mmol/L Venous Blood Oxygen Saturation 71.1 % Venous Blood Base Excess -8.7 mmol/L Procalcitonin 0.60 ng/mL Random Cortisol 18.07 mcg/dl White Blood Count 4.05 K/uL Red Blood Count 3.72 M/uL Hemoglobin 11.0 g/dL Hematocrit 35.2 % Mean Corpuscular Volume 94.6 fL Mean Corpuscular Hemoglobin 29.6 pg Mean Corpuscular Hemoglobin Concent 31.3 g/dl Platelet Count 210 K/uL Mean Platelet Volume 10.3 fL Neutrophils (%) (Auto) 64.0 % Lymphocytes (%) (Auto) 16.8 % Monocytes (%) (Auto) 15.3 % Eosinophils (%) (Auto) 3.2 % Basophils (%) (Auto) 0.5 % Neutrophils # (Auto) 2.59 K/uL Lymphocytes # (Auto) 0.68 K/uL Monocytes # (Auto) 0.62 K/uL Eosinophils # (Auto) 0.13 K/uL Basophils # (Auto) 0.02 K/uL RDW Standard Deviation 51.9 fL RDW Coefficient of Variation 15.0 % Immature Granulocyte % (Auto) 0.2 % Immature Granulocyte # (Auto) 0.01 K/uL Sodium Level 135 mmol/L Potassium Level 3.9 mmol/L Chloride Level 99 mmol/L Carbon Dioxide Level 21 mmol/L Anion Gap 15.0 mmol/L Blood Urea Nitrogen 29 mg/dl Creatinine 4.90 mg/dl Est Creatinine Clear Calc Drug Dose 16.7 ml/min Estimated GFR () 14.0 Estimated GFR (Non- 12.1 BUN/Creatinine Ratio 5.8 Random Glucose 89 mg/dl Calcium Level 7.8 mg/dl Troponin I 0.047 ng/ml Bedside Glucose 89 mg/dl Assessment and Plan This is a 60 yo m from [facility] with a h/o ESRD (followed by Dr Buchanan), DMII , h/o MRSA and C diff and post NV x 2 that presented to us in the ED with Palpitations yesterday during dialysis he developed rapid junctional rhythm which actually spontaneously converted also had systolic hypotension between 70-80. 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
[2016-06-19] MEDS ORDERED: VANCOMYCIN CONSULT ACTIVE PRN (09:45)
[2016-06-19] MEDS ORDERED: VANCOMYCIN INJ 1,700 MG in SODIUM CHLORIDE 0.9% 500ML 500 ML IV ONE (10:00)
--- NOTE | 2016-06-19 10:20 | Pharmacy Progress Note ---
Pharmacy Antibiotic Consult Date of Service: Jun 19, 2016. Pharmacy Dosing Scope Pharmacy is consulted to initiate Vanco/Zosyn IV dosing therapy, order appropriate labs and adjust drug dose/frequency. Subjective The patient is a 60 year old male admitted on Jun 18, 2016 at 16:37. Objective Height (Feet): 5 Height (Inches): 7.00 Weight (Kilograms): 80.800 Lab Results (24hrs): Item Value Date Time Creatinine 4.90 mg/dl *H 06/19/16 0516 Est Creatinine Clear Calc Drug Dose 16.7 ml/min 06/19/16 0516 Laboratory Tests Test 06/18/16 14:45 06/18/16 16:31 06/19/16 05:16 White Blood Count 3.71 K/uL 4.05 K/uL Red Blood Count 4.72 M/uL 3.72 M/uL Hemoglobin 14.3 g/dL 11.0 g/dL Hematocrit 43.8 % 35.2 % Mean Corpuscular Volume 92.8 fL 94.6 fL Mean Corpuscular Hemoglobin 30.3 pg 29.6 pg Mean Corpuscular Hemoglobin Concent 32.6 g/dl 31.3 g/dl Platelet Count 206 K/uL 210 K/uL Mean Platelet Volume 11.3 fL 10.3 fL Neutrophils (%) (Auto) 59.4 % 64.0 % Lymphocytes (%) (Auto) 21.3 % 16.8 % Monocytes (%) (Auto) 14.8 % 15.3 % Eosinophils (%) (Auto) 3.5 % 3.2 % Basophils (%) (Auto) 0.5 % 0.5 % Neutrophils # (Auto) 2.20 K/uL 2.59 K/uL Lymphocytes # (Auto) 0.79 K/uL 0.68 K/uL Monocytes # (Auto) 0.55 K/uL 0.62 K/uL Eosinophils # (Auto) 0.13 K/uL 0.13 K/uL Basophils # (Auto) 0.02 K/uL 0.02 K/uL BUN/Creatinine Ratio 5.5 5.8 Blood Urea Nitrogen 21 mg/dl 29 mg/dl Creatinine 3.80 mg/dl 4.90 mg/dl Micro Results: Item Value Date Time MRSA DNA Surveillance Screen - Final Complete 06/18/161944 Nasal Specimen Negative for MRSA by DNA Probe Item Value Date Time Blood Culture Received 1/16/17 1450 Blood Pending Blood Culture Received 06/18/16 1445 Blood Pending Assessment & Plan Pt is a 60yo M resident of [facility] w h/o ESRD, C.diff, MRSA, & DMII. In ED he was found to be hypotensive sys 70/80s which did not respond to IFV. He is now receiving pressor/inotropic support in the form of Levophed. He is afebrile , RR WNL, BP still low. WBC WNL. Mr. Guthrie receives HD MWF. BC are pending. MRSA nasal swab is negative but he has multiple risk factors for a MRSA infxn. Vanco * Loading dose: 1700mg (~20mg/kg) IV X 1 dose then: * Goal random level estimate: between 15 - 20 mcg/mL. * Random level has been ordered for: with AM labs, day of HD. Zosyn * Received one time 4.5g 30 min infsn * Will receive subsequent 4.5g q12h EI. appropriate for HD and clinical status Thank you for consulting the pharmacy kinetic team and including us in the care of Mr. Guthrie Pharmacy will continue to follow and will adjust dose/frequency as necessary. Thank you
--- NOTE | 2016-06-19 10:48 | Cardiology Consultation ---
Cardiology Consultation Date of Consultation: Jun 19, 2016. Requesting Physician: Dr. Newman Reason for Consultation: SVT Pt evaluation today including: conversation w/ patient, physical exam, lab review, review of studies, review of inpatient medication list History of Present Illness This is a very pleasant 60-year-old gentleman who has a history of end-stage kidney disease for which he is on dialysis. He has a history of diabetes mellitus, he does have nonobstructive coronary artery disease identified at catheterization 2009. He had an admission for MRSA bacteremia 12/28/2015 and developed supraventricular tachycardia. 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 It appears from monitoring that he had several episodes terminated with adenosine. He was started on amiodarone during that admission and remains on it. He was also started on Eliquis I believe, I don't know the specific indications. This admission was prompted by hypotension and tachycardia identified on hemodialysis, his blood pressure was in the 60-80 mmHg range during the emergency room. He was started on pressors and his arrhythmia terminated spontaneously to sinus rhythm. He remained hypotensive however after termination of the arrhythmia but apparently felt better. It sounds as though he is aware of the arrhythmia historically but it doesn't typically bother him very much, he describes feeling his heart racing (which he also noted during dialysis previous to this admission) but this is relatively infrequent, perhaps twice a year, and he thinks only lasts several minutes. Clearly the episode that prompted this admission and during his last admission was much longer. At the time of my evaluation he is feeling well, he has no specific complaints. He has no chest discomfort, did not of chest discomfort during this event and is not short of breath. Past Medical/Surgical History Medical Problems: (1) Anemia Status: Chronic (2) CAD (coronary artery disease) Permanent Comment: per records- had acute ND in 07/2001 and 03/2010. 40% LAD and 30% circ obstruction noted in records- unknown date of cath. 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 (10) History of Clostridium difficile colitis Status: Chronic (11) History of CVA (cerebrovascular accident) Status: Chronic (12) History of GI bleed Permanent Comment: EGD 02/08/15- ulceration at gastrojejunal anastomosis from bastric bypass Colonoscopy 02/08/15- internal hemorrhoids Status: Chronic (13) History of methicillin resistant staphylococcus aureus (MRSA) Status: Chronic (14) History of non-ST elevation myocardial infarction (NSTEMI) Status: Chronic (15) Hyperlipidemia Nec/Nos Status: Chronic (16) Hypertension Nos Status: Chronic (17) Hypothyroidism Nos Status: Chronic (18) Migraine Status: Chronic (19) Morbid obesity Status: Chronic (20) Polyneuropathy in diabetes Status: Chronic (21) Proteinuria Status: Chronic (22) Vitamin D deficiency Status: Chronic Surgical Problems: (1) Great toe amputation status Status: Resolved (2) H/O gastric bypass Status: Chronic (3) H/O total hip arthroplasty Status: Chronic (4) History of cholecystectomy Status: Chronic (5) History of colonoscopy with polypectomy Permanent Comment: 09/22/2014- adenomatous polyps Status: Chronic (6) History of left below knee amputation Status: Chronic Family History FH: heart disease FATHER FHx: cancer FATHER Hypertension Social History Smoking Status: Never Smoker History of Alcohol Use: Yes (Twice/year) Review of Systems Constitutional: No fever, No weakness, No weight loss Respiratory: No cough, No shortness of breath Cardiac: No chest pain, No palpitations Abdomen: No GI bleeding, No diarrhea, No nausea, No pain, No vomiting Male : No nocturia more than once/night, No sexual dysfunction, No slowing stream, No urinary frequency Neurologic: No balance problems, No numbness/tingling, No paralysis, No weakness Heme: No abnormal bleeding/bruising, No clotting problems Endo: No fatigue Skin: No problem reported All Other Systems: Reviewed and Negative Allergies Coded Allergies: No Known Allergies (Verified , `, 05/01/16) Medications Current Inpatient Medications Medications (Trade) Dose Ordered Sig/Rigoberto Route Start Time Stop Time Status Last Admin Dose Admin Acetaminophen (Tylenol Tab) 650 mg Q4H PRN PO 06/18/16 16:30 07/18/16 16:29 Ondansetron HCl (Zofran Inj) 4 mg Q6H PRN IV 06/18/16 16:30 07/18/16 16:29 Pantoprazole Sodium 40 mg 40 mg DAILY PO 06/19/16 09:00 07/19/16 08:59 06/19/16 07:33 40 MG Norepinephrine Bitartrate 8 mg/ Dextrose 508 ml @ 0 mls/hr Q0M PRN IV 06/18/16 16:20 07/18/16 16:19 06/18/16 17:14 31.1 MLS/HR Piperacillin Sod/ Tazobactam Sod/ Dextrose (Zosyn Iv/D5 100ml) 120 ml @ 30 mls/hr Q12@0200,1400 IV 06/19/16 02:00 06/28/16 21:59 06/19/16 02:02 30 MLS/HR Insulin Aspart (novoLOG ASPART) SLIDING SCALE G... ACHS SC 06/18/16 21:00 07/18/16 20:59 Calcium Acetate (Phoslo Cap) 2,001 mg TIDM PO 06/18/16 18:00 07/18/16 17:59 06/19/16 07:31 2,001 MG Escitalopram Oxalate (Lexapro Tab) 10 mg DAILY PO 06/19/16 09:00 07/19/16 08:59 06/19/16 07:32 10 MG Gabapentin (Neurontin Cap) 400 mg MoWeFr@2100 PO 06/18/16 21:00 07/18/16 20:59 06/18/16 21:00 400 MG Gabapentin (Neurontin Cap) 400 mg SuTuThSa@0900,1400,2200 PO 06/19/16 09:00 07/19/16 08:59 06/19/16 07:32 400 MG Latanoprost (Xalatan Oph Soln) 1 drops HS OPL 06/18/16 21:00 07/18/16 20:59 Levothyroxine Sodium (Synthroid Tab) 100 mcg DAILYBB PO 06/19/16 06:00 07/19/16 06:59 06/19/16 05:50 100 MCG Midodrine (Proamatine Tab) 2.5 mg MoWeFr@0900,1400 PO 06/20/16 09:00 07/20/16 08:59 Temazepam (Restoril Cap) 15 mg HS PRN PO 06/18/16 16:30 07/18/16 16:29 Apixaban (Eliquis Tab) 5 mg Q12 PO 06/18/16 21:00 07/18/16 20:59 06/19/16 07:32 5 MG Lactobacillus Acidophilus (Floranex Tab) 4 tab QIDM PO 06/19/16 11:30 07/19/16 11:29 Vancomycin HCl 1 ea 1 ea UD PRN N/A 06/19/16 09:45 07/19/16 09:44 Vancomycin HCl/ Sodium Chloride (Vancomycin Inj/ Nss 500ml) 534 ml @ 200 mls/hr NOW ONCE IV 06/19/16 10:00 06/19/16 12:40 Physical Exam Vital Signs Past 12 Hours Date Time Temp Pulse Resp B/P Pulse Ox O2 Delivery O2 Flow Rate FiO2 06/19/16 10:00 58 14 113/66 93 06/19/16 08:58 65 13 96/56 96 06/19/16 08:00 73 14 96 06/19/16 07:58 36.7 70 16 112/65 95 Room Air 06/19/16 07:40 Room Air 06/19/16 07:00 62 16 93 06/19/16 06:00 60 12 121/61 96 Room Air 06/19/16 04:00 Room Air 06/19/16 04:00 36.8 63 13 125/71 97 Room Air 06/19/16 02:00 62 13 86/43 93 Room Air 06/18/16 23:59 Room Air 06/18/16 23:59 36.8 72 12 115/55 94 Room Air 06/18/16 22:58 66 18 118/71 95 Constitutional: General Apperance: heathly-appearing Level of Distress: NAD Psychiatric: Mental Status: active & alert Head: normocephalic Eyes: EOM: EOMI ENMT: normal ENT inspection, hearing grossly normal Neck: supple, no masses Lungs: Respiratory effort: no dyspnea, good air movement Auscultation: breath sounds normal, no wheezing Cardiovascular: Heart Auscultation: RRR, no murmurs, no rubs, no gallops Peripheral Pulses: Bruits: none appreciated Abdomen: Bowel Sounds: normal Inspection & Palpation: soft, no tenderness, guarding & rebound, no masses Musculoskeletal: normal strength (5/5 throughout) Extremities: no edema Neurologic: Cranial Nerves: grossly intact Sensation: grossly intact Hemodialysis site is in the right upper chest, also a peritoneal dialysis catheter in place in his abdomen Data Laboratory Results: Last 24 Hours Test 06/18/16 14:45 06/18/16 16:31 06/18/16 19:45 06/18/16 20:35 White Blood Count 3.71 K/uL Red Blood Count 4.72 M/uL Hemoglobin 14.3 g/dL Hematocrit 43.8 % Mean Corpuscular Volume 92.8 fL Mean Corpuscular Hemoglobin 30.3 pg Mean Corpuscular Hemoglobin Concent 32.6 g/dl Platelet Count 206 K/uL Mean Platelet Volume 11.3 fL Neutrophils (%) (Auto) 59.4 % Lymphocytes (%) (Auto) 21.3 % Monocytes (%) (Auto) 14.8 % Eosinophils (%) (Auto) 3.5 % Basophils (%) (Auto) 0.5 % Neutrophils # (Auto) 2.20 K/uL Lymphocytes # (Auto) 0.79 K/uL Monocytes # (Auto) 0.55 K/uL Eosinophils # (Auto) 0.13 K/uL Basophils # (Auto) 0.02 K/uL RDW Standard Deviation 51.3 fL RDW Coefficient of Variation 15.3 % Immature Granulocyte % (Auto) 0.5 % Immature Granulocyte # (Auto) 0.02 K/uL Prothrombin Time 10.7 SECONDS Prothromb Time International Ratio 1.0 Activated Partial Thromboplast Time 30.1 SECONDS Partial Thromboplastin Ratio 1.2 Sodium Level 134 mmol/L Potassium Level 3.5 mmol/L Chloride Level 99 mmol/L Carbon Dioxide Level 19 mmol/L Anion Gap 16.0 mmol/L Blood Urea Nitrogen 21 mg/dl Creatinine 3.80 mg/dl Est Creatinine Clear Calc Drug Dose 21.8 ml/min Estimated GFR () 19.1 Estimated GFR (Non- 16.4 BUN/Creatinine Ratio 5.5 Random Glucose 70 mg/dl Lactic Acid Level 1.5 mmol/L Calcium Level 7.7 mg/dl Magnesium Level 2.0 mg/dl Total Bilirubin 0.5 mg/dl Aspartate Amino Transf (AST/SGOT) 28 U/L Alanine Aminotransferase (ALT/SGPT) 38 U/L Alkaline Phosphatase 194 U/L Troponin I < 0.015 ng/ml Total Protein 6.8 gm/dl Albumin 2.8 gm/dl Globulin 4.0 gm/dl Albumin/Globulin Ratio 0.7 Thyroid Stimulating Hormone (TSH) 7.210 uIu/ml Free Thyroxine 1.37 ng/dl Influenza Type A (RT-PCR) Neg for Influ A Influenza Type B (RT-PCR) Neg for Influ B Bedside Glucose 132 mg/dl Test 06/18/16 20:38 06/19/16 05:16 06/19/16 05:23 06/19/16 10:19 Venous Blood pH 7.26 Venous Blood Partial Pressure CO2 40 mmHg Venous Blood Partial Pressure O2 42 mmHg Venous Blood HCO3 18 mmol/L Venous Blood Oxygen Saturation 71.1 % Venous Blood Base Excess -8.7 mmol/L Procalcitonin 0.60 ng/mL Random Cortisol 18.07 mcg/dl White Blood Count 4.05 K/uL Red Blood Count 3.72 M/uL Hemoglobin 11.0 g/dL Hematocrit 35.2 % Mean Corpuscular Volume 94.6 fL Mean Corpuscular Hemoglobin 29.6 pg Mean Corpuscular Hemoglobin Concent 31.3 g/dl Platelet Count 210 K/uL Mean Platelet Volume 10.3 fL Neutrophils (%) (Auto) 64.0 % Lymphocytes (%) (Auto) 16.8 % Monocytes (%) (Auto) 15.3 % Eosinophils (%) (Auto) 3.2 % Basophils (%) (Auto) 0.5 % Neutrophils # (Auto) 2.59 K/uL Lymphocytes # (Auto) 0.68 K/uL Monocytes # (Auto) 0.62 K/uL Eosinophils # (Auto) 0.13 K/uL Basophils # (Auto) 0.02 K/uL RDW Standard Deviation 51.9 fL RDW Coefficient of Variation 15.0 % Immature Granulocyte % (Auto) 0.2 % Immature Granulocyte # (Auto) 0.01 K/uL Sodium Level 135 mmol/L Potassium Level 3.9 mmol/L Chloride Level 99 mmol/L Carbon Dioxide Level 21 mmol/L Anion Gap 15.0 mmol/L Blood Urea Nitrogen 29 mg/dl Creatinine 4.90 mg/dl Est Creatinine Clear Calc Drug Dose 16.7 ml/min Estimated GFR () 14.0 Estimated GFR (Non- 12.1 BUN/Creatinine Ratio 5.8 Random Glucose 89 mg/dl Calcium Level 7.8 mg/dl Troponin I 0.047 ng/ml Bedside Glucose 89 mg/dl Test 06/19/16 10:23 EKG: During his tachycardia what appears to be typical AV pippa reentry at 120 bpm. Telemetry reviewed: Review of his admission telemetry demonstrates a narrow complex regular tachycardia at 120 bpm, with termination spontaneously into sinus rhythm. No further episodes. Assessment & Plan #1. SVT: He has a well-defined supraventricular tachycardia which has been recorded on 12 leads both in December 2015 and his current admission. Both appear to be typical AV node reentry, the former was 140 bpm, currently 120 bpm. He was started on amiodarone during his last hospitalization which probably explains the decrease in rate. He did seem to have hemodynamic consequence although he probably has other causes for hypotension as well. I suspect the SVT contributed. He did have a very slight enzyme rise presumably due to demand ischemia and he was hypotensive. It is unlikely that we will be able to eliminate the arrhythmia with medical therapy, at this point it may be prudent to consider electrophysiology study and ablation despite his multiple comorbidities. This would allow us to discontinue the amiodarone. #2. Anticoagulant therapy: I'm not sure why he is on anticoagulation, I don't believe it is due to his rhythm. #3. Hypotension on admission: He was significantly hypotensive and required pressors, this may have been aggravated by the SVT however I don't believe that is the sole cause as his blood pressure should've normalized immediately with termination of the arrhythmia. He seems to have more trouble with the arrhythmia when he is under stress (unless he has morbid as an outpatient and is aware of) and this may be due to high catecholamines. This is a common aggravating factor with AV pippa reentry. His initial hypotension was probably triggered by some other cause and aggravated by the SVT. The heart rate was not high enough probably to cause it by itself although he does not have been normal AV association with AV pippa reentry. Thank you for allowing me to participate in his care.
[2016-06-19] MEDS: LACTOBACILLUS ACIDOPHILUS (FLORANEX) TAB PO SCH ×3 (11:35→21:40)
[2016-06-19] MEDS ORDERED: HYDROCORTISONE SOD SUCCINATE 100 MG/2 ML VIAL IV STA (14:34)
[2016-06-19] MEDS ORDERED: HYDROCORTISONE IV 100 MG in SYRINGE 0 ML IV ONE (14:45)
[2016-06-19] MEDS ORDERED: PANTOprazole INJ 40 MG in SYRINGE 0 ML IV SCH (21:00)
[2016-06-19] MEDS: LATANOPROST 0.005% OP SOLN 2.5 ML BTL OPL SCH (21:40)
[2016-06-20] VITALS (16 sets, daily range): BP systolic 94–146; BP diastolic 32–87; PULSE 44–74; TEMP 36.4–36.9; O2SAT 91–98
[2016-06-20] MEDS: PIPERACILL/TAZOBAC IV 4.5 GM in DEXTROSE 5% 100ML 100 ML IV SCH ×2 (02:32→13:49)
[2016-06-20] MEDS: LEVOTHYROXINE 100 MCG TAB PO SCH (05:48)
[2016-06-20 06:18] LABS: BASO % 0.5 %; BASO ABS # 0.02 K/uL (0-0.2); COMPLETE YES; EOS % 0.3 %; HEMATOCRIT 33.1 % (42-52); IG% 0.3 %; LYMPH % 14.8 %; LYMPH ABS # 0.55 K/uL (1.2-3.4); MEAN CELL VOLUME 94.3 fL (80-100); MEAN CORPUSCULAR HEMOGLOBIN 30.2 pg (25-34); MEAN PLATELET VOLUME 10.3 fL (7.4-10.4); MONO % 8.6 %; NEUT % 75.5 %; PLATELET COUNT 164 K/uL (130-400); RED BLOOD COUNT 3.51 M/uL (4.7-6.1); WHITE BLOOD COUNT 3.72 K/uL (4.8-10.8)
[2016-06-20 06:59] LABS: ALB/GLOB RATIO 0.7 (0.9-2); BUN/CREATININE RATIO 6.7 (10-20); CALCIUM 8.1 mg/dl (8.5-10.1); CREATININE 6.3 mg/dl (0.60-1.40); MAGNESIUM 2.2 mg/dl (1.8-2.4); PHOSPHORUS 4.5 mg/dl (2.5-4.9); POTASSIUM 4.1 mmol/L (3.5-5.1)
--- NOTE | 2016-06-20 07:31 | Critical Care Progress Note ---
Critical Care Progress Note Date of Service Jun 20, 2016. Attending Dr. Costa Subjective No acute events overnight After hydrocortisone the patient has been off of pressors and has been tolerating it well has not had any chest pain, SOB, or cough ROS negative aside from what is noted above Objective General: not in acute distress. laying comfortably in bed Skin: no rashes noted, no suspicious lesions, no areas of inflammations/ lacerations/ erythema noted CVS: S1/ S2 noted, RRR, no rubs/ murmurs noted, no cyanosis RVS: Clear throughout bilaterally, not in acute respiratory distress, no wheezing/ rales/ crackles noted ENT: poor dentition Neck: inspection WNL, full ROM of neck, central line in left IJ ABD: BSx4, no pain/ tenderness on palpation, no organomegaly,no distention noted MSK: inspection of all limbs WNL except for a noted amputation of the left LE, no swelling/ pain on palpation of joints, requires assistance for ambulation NVS: a+O x3, mood stable Lymph: No lymphadenopathy palpable Assessment & Plan 1. Undifferentiated Hypotension- multifactorial 2. Junctional arrhythmia 3. ESRD requiring dialysis 4. H/O C Diff CVS - Patient has had an echo in December 2015 - EF 55-60% LV normal in size and motion - Grade I diastolic failure - No significant stenosis or regurg - Levophed patient has been weaned, has had stable bp since d/c - central line has been placed - left IJ - CVS has been consulted - appreciate input - Amiodarone held - TSH/ T4- TSH elevated by free T4 WNL - Magnesium- WNL - Troponin - most likely supply and demand from tachy GI - Diabetic diet Renal - Nephrology has been consulted - appreciate input- due for dialysis today - recheck daily BMP - strict I&O ID - Levo and Zosyn , vanco d/c because bld cx negative and pt back to BL - empiric Tamiflu - d/c - procalcitonin 0.6- ESRD vs infection, will trend - consider a very short course considering his history of C Diff Endo - Insulin aspart DVT Prophylaxis - Eliquis Full code Resident Physician Supervision Note: Dr. Nemwan was resident physician during care of patient. I separately evaluated patient and did history and exam. I discussed the case with the resident and generally agree with the findings and plan. Amiodarone stopped, no strong indication to restart. Patient will need repeat blood cultures (one from HD cath and one from periphery ) and continue vancomycin. Suspect contaminant. Not having dialysis today and random vancomycin at 20: adequate coverage. D/c central venous access, cultures from sites PRIOR to CVL placement. Stable for downgrade to telemetry status. Documented By: Everton Costa DO Data Medications: Current Inpatient Medications Medications (Trade) Dose Ordered Sig/Rigoberto Route Start Time Stop Time Status Last Admin Dose Admin Acetaminophen (Tylenol Tab) 650 mg Q4H PRN PO 06/18/16 16:30 07/18/16 16:29 Ondansetron HCl 4 mg 4 mg Q6H PRN IV 06/18/16 16:30 07/18/16 16:29 Norepinephrine Bitartrate 8 mg/ Dextrose 508 ml @ 0 mls/hr Q0M PRN IV 06/18/16 16:20 07/18/16 16:19 06/18/16 17:14 31.1 MLS/HR Piperacillin Sod/ Tazobactam Sod/ Dextrose (Zosyn Iv/D5 100ml) 120 ml @ 30 mls/hr Q12@0200,1400 IV 06/19/16 02:00 06/28/16 21:59 06/20/16 02:32 30 MLS/HR Insulin Aspart (novoLOG ASPART) SLIDING SCALE G... ACHS SC 06/18/16 21:00 07/18/16 20:59 06/19/16 21:45 1 UNITS Calcium Acetate (Phoslo Cap) 2,001 mg TIDM PO 06/18/16 18:00 07/18/16 17:59 06/19/16 16:12 2,001 MG Escitalopram Oxalate (Lexapro Tab) 10 mg DAILY PO 06/19/16 09:00 07/19/16 08:59 06/19/16 07:32 10 MG Gabapentin (Neurontin Cap) 400 mg MoWeFr@2100 PO 06/18/16 21:00 07/18/16 20:59 06/18/16 21:00 400 MG Gabapentin (Neurontin Cap) 400 mg SuTuThSa@0900,1400,2200 PO 06/19/16 09:00 07/19/16 08:59 06/19/16 21:39 400 MG Latanoprost (Xalatan Oph Soln) 1 drops HS OPL 06/18/16 21:00 07/18/16 20:59 06/19/16 21:40 1 DROPS Levothyroxine Sodium (Synthroid Tab) 100 mcg DAILYBB PO 06/19/16 06:00 07/19/16 06:59 06/20/16 05:48 100 MCG Midodrine (Proamatine Tab) 2.5 mg MoWeFr@0900,1400 PO 06/20/16 09:00 07/20/16 08:59 Temazepam (Restoril Cap) 15 mg HS PRN PO 06/18/16 16:30 07/18/16 16:29 Apixaban (Eliquis Tab) 5 mg Q12 PO 06/18/16 21:00 07/18/16 20:59 06/19/16 21:41 5 MG Lactobacillus Acidophilus (Floranex Tab) 4 tab QIDM PO 06/19/16 11:30 07/19/16 11:29 06/19/16 21:40 4 TAB Vancomycin HCl 1 ea 1 ea UD PRN N/A 06/19/16 09:45 07/19/16 09:44 Pantoprazole Sodium/Syringe (Protonix Inj/ Syringe) 10 ml @ 5 mls/min BID@0900,2100 IV 06/19/16 21:00 07/19/16 20:59 06/19/16 21:40 5 MLS/MIN I & O: 24-Hour Column 06/20/16 08:00 Intake Total 2267 ml Balance 2267 ml Vital Signs: Date Time Temp Pulse Resp B/P Pulse Ox O2 Delivery O2 Flow Rate FiO2 06/20/16 05:59 36.4 44 10 108/65 93 06/20/16 04:29 46 9 114/74 06/20/16 04:00 95 Room Air 06/20/16 03:59 53 12 122/62 06/20/16 02:29 50 10 99/58 91 06/20/16 02:00 49 10 91 06/20/16 00:28 45 10 121/73 97 06/20/16 00:01 36.4 46 11 96 06/19/16 23:59 95 Room Air 06/19/16 22:00 53 16 102/67 96 06/19/16 21:58 52 102/67 97 06/19/16 21:28 48 111/67 95 06/19/16 20:58 53 13 111/74 94 06/19/16 20:28 53 13 115/66 91 06/19/16 20:00 36.4 51 11 90 06/19/16 20:00 95 Room Air 06/19/16 18:00 59 1 92 06/19/16 17:58 59 10 91/54 94 06/19/16 17:30 61 15 94 06/19/16 17:29 64 15 111/57 87 06/19/16 17:00 63 16 95 06/19/16 16:58 58 18 132/71 79 06/19/16 16:30 59 18 97 06/19/16 16:29 59 12 128/73 06/19/16 16:26 36.8 59 9 95/61 94 06/19/16 16:00 57 13 85 06/19/16 15:45 Room Air 06/19/16 15:28 51 13 96/56 94 Room Air 06/19/16 15:00 57 14 06/19/16 14:58 57 14 111/57 96 06/19/16 14:30 56 14 96 06/19/16 14:28 56 11 109/68 96 06/19/16 14:00 62 14 93 Room Air 06/19/16 13:58 62 13 96/56 92 06/19/16 13:30 58 11 93 06/19/16 13:28 59 13 101/57 93 06/19/16 13:00 65 13 94 06/19/16 12:58 66 14 118/65 93 06/19/16 12:30 61 14 95 06/19/16 12:00 63 9 95 06/19/16 12:00 Room Air 06/19/16 11:58 36.8 66 15 128/71 97 Room Air 06/19/16 11:30 60 13 97 06/19/16 11:00 55 10 94 06/19/16 10:00 58 14 113/66 93 06/19/16 08:58 65 13 96/56 96 06/19/16 08:00 Room Air 06/19/16 08:00 73 14 96 06/19/16 07:58 36.7 70 16 112/65 95 Room Air 06/19/16 07:40 Room Air Laboratory Results: Last 24 Hours Test 06/19/16 11:06 06/19/16 11:31 06/19/16 16:18 06/19/16 20:30 Troponin I 0.043 ng/ml Procalcitonin 1.04 ng/mL Random Cortisol 8.85 mcg/dl Bedside Glucose 104 mg/dl 130 mg/dl 175 mg/dl Test 06/20/16 05:44 06/20/16 06:43 White Blood Count 3.72 K/uL Red Blood Count 3.51 M/uL Hemoglobin 10.6 g/dL Hematocrit 33.1 % Mean Corpuscular Volume 94.3 fL Mean Corpuscular Hemoglobin 30.2 pg Mean Corpuscular Hemoglobin Concent 32.0 g/dl Platelet Count 164 K/uL Mean Platelet Volume 10.3 fL Neutrophils (%) (Auto) 75.5 % Lymphocytes (%) (Auto) 14.8 % Monocytes (%) (Auto) 8.6 % Eosinophils (%) (Auto) 0.3 % Basophils (%) (Auto) 0.5 % Neutrophils # (Auto) 2.81 K/uL Lymphocytes # (Auto) 0.55 K/uL Monocytes # (Auto) 0.32 K/uL Eosinophils # (Auto) 0.01 K/uL Basophils # (Auto) 0.02 K/uL RDW Standard Deviation 51.1 fL RDW Coefficient of Variation 14.9 % Immature Granulocyte % (Auto) 0.3 % Immature Granulocyte # (Auto) 0.01 K/uL Sodium Level 136 mmol/L Potassium Level 4.1 mmol/L Chloride Level 100 mmol/L Carbon Dioxide Level 23 mmol/L Anion Gap 13.0 mmol/L Blood Urea Nitrogen 42 mg/dl Creatinine 6.30 mg/dl Est Creatinine Clear Calc Drug Dose 11.9 ml/min Estimated GFR () 10.3 Estimated GFR (Non- 8.9 BUN/Creatinine Ratio 6.7 Random Glucose 130 mg/dl Calcium Level 8.1 mg/dl Phosphorus Level 4.5 mg/dl Magnesium Level 2.2 mg/dl Total Bilirubin 0.4 mg/dl Aspartate Amino Transf (AST/SGOT) 9 U/L Alanine Aminotransferase (ALT/SGPT) 22 U/L Alkaline Phosphatase 136 U/L Total Protein 6.4 gm/dl Albumin 2.7 gm/dl Globulin 3.7 gm/dl Albumin/Globulin Ratio 0.7 Random Vancomycin Level 20.2 mcg/ml Bedside Glucose 130 mg/dl
[2016-06-20] MEDS: ESCITALOPRAM OXALATE 10 MG TAB PO SCH (07:36)
[2016-06-20] MEDS: CALCIUM ACETATE 667MG GELCAP PO SCH ×3 (07:36→16:54)
[2016-06-20] MEDS: MIDODRINE 2.5 MG TAB PO SCH ×2 (07:36→13:49)
[2016-06-20] MEDS: APIXABAN 2.5 MG TAB PO SCH ×2 (07:36→21:15)
[2016-06-20] MEDS: LACTOBACILLUS ACIDOPHILUS (FLORANEX) TAB PO SCH ×5 (07:37→21:15)
[2016-06-20] MEDS: INSULIN ASPART 100 UNITS/ML 3 ML PEN SC SCH ×4 (07:40→21:00)
[2016-06-20] MEDS ORDERED: CALCIUM ACETATE 667MG GELCAP PO PRN (09:00)
--- NOTE | 2016-06-20 09:01 | Progress Note ---
Subjective Date of Service: Jun 20, 2016. Subjective Pt evaluation today including: conversation w/ patient, chart review, lab review, review of studies Problem List Medical Problems: (1) Abdominal pain Status: Acute (2) C. difficile colitis Status: Acute (3) Colitis Status: Acute (4) Dehydration Status: Acute (5) Fever Status: Acute (6) Hypotension Status: Acute (7) Infection associated with peritoneal dialysis catheter Status: Acute (8) Periumbilical abdominal pain Status: Acute (9) Weakness Status: Acute Review of Systems Constitutional: No fever Eyes: No worsening of vision ENT: No hearing loss Respiratory: No cough, No dyspnea on exertion, No shortness of breath, No sputum Cardiac: No chest pain, No edema, No orthopnea Abdomen: No diarrhea, No nausea, No pain, No vomiting Musculoskeletal: No joint pain, No muscle pain Male : No dysuria Neurologic: No memory loss Psychiatric: No depression symptoms Endo: No fatigue Skin: No rash Medications Current Inpatient Medications Medications (Trade) Dose Ordered Sig/Rigoberto Route Start Time Stop Time Status Last Admin Dose Admin Acetaminophen (Tylenol Tab) 650 mg Q4H PRN PO 06/18/16 16:30 07/18/16 16:29 Ondansetron HCl 4 mg 4 mg Q6H PRN IV 06/18/16 16:30 07/18/16 16:29 Norepinephrine Bitartrate 8 mg/ Dextrose 508 ml @ 0 mls/hr Q0M PRN IV 06/18/16 16:20 07/18/16 16:19 06/18/16 17:14 31.1 MLS/HR Piperacillin Sod/ Tazobactam Sod/ Dextrose (Zosyn Iv/D5 100ml) 120 ml @ 30 mls/hr Q12@0200,1400 IV 06/19/16 02:00 06/28/16 21:59 06/20/16 02:32 30 MLS/HR Insulin Aspart (novoLOG ASPART) SLIDING SCALE G... ACHS SC 06/18/16 21:00 07/18/16 20:59 06/20/16 07:40 3 UNITS Calcium Acetate (Phoslo Cap) 2,001 mg TIDM PO 06/18/16 18:00 07/18/16 17:59 06/20/16 07:36 2,001 MG Escitalopram Oxalate (Lexapro Tab) 10 mg DAILY PO 06/19/16 09:00 07/19/16 08:59 06/20/16 07:36 10 MG Gabapentin (Neurontin Cap) 400 mg MoWeFr@2100 PO 06/18/16 21:00 07/18/16 20:59 06/18/16 21:00 400 MG Gabapentin (Neurontin Cap) 400 mg SuTuThSa@0900,1400,2200 PO 06/19/16 09:00 07/19/16 08:59 06/19/16 21:39 400 MG Latanoprost (Xalatan Oph Soln) 1 drops HS OPL 06/18/16 21:00 07/18/16 20:59 06/19/16 21:40 1 DROPS Levothyroxine Sodium (Synthroid Tab) 100 mcg DAILYBB PO 06/19/16 06:00 07/19/16 06:59 06/20/16 05:48 100 MCG Midodrine (Proamatine Tab) 2.5 mg MoWeFr@0900,1400 PO 06/20/16 09:00 07/20/16 08:59 06/20/16 07:36 2.5 MG Temazepam (Restoril Cap) 15 mg HS PRN PO 06/18/16 16:30 07/18/16 16:29 Apixaban (Eliquis Tab) 5 mg Q12 PO 06/18/16 21:00 07/18/16 20:59 06/20/16 07:36 5 MG Lactobacillus Acidophilus (Floranex Tab) 4 tab QIDM PO 06/19/16 11:30 07/19/16 11:29 06/20/16 07:37 4 TAB Vancomycin HCl 1 ea 1 ea UD PRN N/A 06/19/16 09:45 07/19/16 09:44 Pantoprazole Sodium/Syringe (Protonix Inj/ Syringe) 10 ml @ 5 mls/min BID@0900,2100 IV 06/19/16 21:00 07/19/16 20:59 06/19/16 21:40 5 MLS/MIN Objective Vital Signs Date Time Temp Pulse Resp B/P Pulse Ox O2 Delivery O2 Flow Rate FiO2 06/20/16 08:00 36.9 60 14 114/87 95 Room Air 06/20/16 08:00 Room Air 06/20/16 07:58 60 12 114/87 95 06/20/16 05:59 36.4 44 10 108/65 93 06/20/16 04:29 46 9 114/74 06/20/16 04:00 95 Room Air 06/20/16 03:59 53 12 122/62 06/20/16 02:29 50 10 99/58 91 06/20/16 02:00 49 10 91 06/20/16 00:28 45 10 121/73 97 06/20/16 00:01 36.4 46 11 96 06/19/16 23:59 95 Room Air 06/19/16 22:00 53 16 102/67 96 06/19/16 21:58 52 102/67 97 06/19/16 21:28 48 111/67 95 06/19/16 20:58 53 13 111/74 94 06/19/16 20:28 53 13 115/66 91 06/19/16 20:00 36.4 51 11 90 06/19/16 20:00 95 Room Air 06/19/16 18:00 59 1 92 06/19/16 17:58 59 10 91/54 94 06/19/16 17:30 61 15 94 06/19/16 17:29 64 15 111/57 87 06/19/16 17:00 63 16 95 06/19/16 16:58 58 18 132/71 79 06/19/16 16:30 59 18 97 06/19/16 16:29 59 12 128/73 06/19/16 16:26 36.8 59 9 95/61 94 06/19/16 16:00 57 13 85 06/19/16 15:45 Room Air 06/19/16 15:28 51 13 96/56 94 Room Air 06/19/16 15:00 57 14 06/19/16 14:58 57 14 111/57 96 06/19/16 14:30 56 14 96 06/19/16 14:28 56 11 109/68 96 06/19/16 14:00 62 14 93 Room Air 06/19/16 13:58 62 13 96/56 92 06/19/16 13:30 58 11 93 06/19/16 13:28 59 13 101/57 93 06/19/16 13:00 65 13 94 06/19/16 12:58 66 14 118/65 93 06/19/16 12:30 61 14 95 06/19/16 12:00 63 9 95 06/19/16 12:00 Room Air 06/19/16 11:58 36.8 66 15 128/71 97 Room Air 06/19/16 11:30 60 13 97 06/19/16 11:00 55 10 94 06/19/16 10:00 58 14 113/66 93 06/19/16 08:58 65 13 96/56 96 Physical Exam General Appearance: no apparent distress Eyes: normal inspection, PERRL, EOMI ENT: normal ENT inspection, hearing grossly normal Neck: supple Respiratory/Chest: chest non-tender, lungs clear, normal breath sounds, no respiratory distress, no accessory muscle use Cardiovascular: regular rate, rhythm, no edema, no gallop, no JVD, no murmur Abdomen: normal bowel sounds, non tender, soft, no organomegaly, no pulsatile mass, + pertinent finding (PD cath in place) Extremities: normal range of motion, non-tender, normal inspection, no pedal edema, no calf tenderness Neurologic/Psychiatric: care process manager II-XII nml as tested, no motor/sensory deficits, alert, normal mood/affect, oriented x 3 Skin: normal color, warm/dry, no rash Laboratory Results Last 24 Hours Test 06/19/16 11:06 06/19/16 11:31 06/19/16 16:18 06/19/16 20:30 Troponin I 0.043 ng/ml Procalcitonin 1.04 ng/mL Random Cortisol 8.85 mcg/dl Bedside Glucose 104 mg/dl 130 mg/dl 175 mg/dl Test 06/20/16 05:44 06/20/16 06:43 White Blood Count 3.72 K/uL Red Blood Count 3.51 M/uL Hemoglobin 10.6 g/dL Hematocrit 33.1 % Mean Corpuscular Volume 94.3 fL Mean Corpuscular Hemoglobin 30.2 pg Mean Corpuscular Hemoglobin Concent 32.0 g/dl Platelet Count 164 K/uL Mean Platelet Volume 10.3 fL Neutrophils (%) (Auto) 75.5 % Lymphocytes (%) (Auto) 14.8 % Monocytes (%) (Auto) 8.6 % Eosinophils (%) (Auto) 0.3 % Basophils (%) (Auto) 0.5 % Neutrophils # (Auto) 2.81 K/uL Lymphocytes # (Auto) 0.55 K/uL Monocytes # (Auto) 0.32 K/uL Eosinophils # (Auto) 0.01 K/uL Basophils # (Auto) 0.02 K/uL RDW Standard Deviation 51.1 fL RDW Coefficient of Variation 14.9 % Immature Granulocyte % (Auto) 0.3 % Immature Granulocyte # (Auto) 0.01 K/uL Sodium Level 136 mmol/L Potassium Level 4.1 mmol/L Chloride Level 100 mmol/L Carbon Dioxide Level 23 mmol/L Anion Gap 13.0 mmol/L Blood Urea Nitrogen 42 mg/dl Creatinine 6.30 mg/dl Est Creatinine Clear Calc Drug Dose 11.9 ml/min Estimated GFR () 10.3 Estimated GFR (Non- 8.9 BUN/Creatinine Ratio 6.7 Random Glucose 130 mg/dl Calcium Level 8.1 mg/dl Phosphorus Level 4.5 mg/dl Magnesium Level 2.2 mg/dl Total Bilirubin 0.4 mg/dl Aspartate Amino Transf (AST/SGOT) 9 U/L Alanine Aminotransferase (ALT/SGPT) 22 U/L Alkaline Phosphatase 136 U/L Total Protein 6.4 gm/dl Albumin 2.7 gm/dl Globulin 3.7 gm/dl Albumin/Globulin Ratio 0.7 Random Vancomycin Level 20.2 mcg/ml Bedside Glucose 130 mg/dl Assessment and Plan This is a 60 yo m from [facility] with a h/o ESRD (followed by Dr Buchanan), DMII , h/o MRSA and C diff and post [place] x 2 that presented to us in the ED with Palpitations yesterday during dialysis he developed rapid junctional rhythm which actually spontaneously converted also had systolic hypotension between 70-80. Assessment/plan: Septic shock secondary to unknown source , improved, currently of levophed multiple potential sources, HD cath, PD cath will F/U Blood Cx obtain UA w Ucx (he makes small amount of urine) Not obtained yet Ascitic fluid Cx, not obtained yet DC levofloxacin continue Zosyn/vanco DC Tamiflu, no stigmata of flu infection since he is off pressors, can be transferred to the floor now SVT currently normal sinus consult lead pressman appreciated, considering electrophysiology study and ablation despite his multiple comorbidities Patient has had an echo in December 2015 - EF 55-60% LV normal in size and motion - Grade I diastolic failure ESRD requiring dialysis consult commercial lending assistant for inpatient dialysis on schedule H/O C Diff will DC levofloxacin Add lactinex for C diff prophylaxis DMII SSI DVT prophylaxis already on AC Hypothyroidism TSH was slightly elevated continue synthroid same dose Hx of A fib continue AC
[2016-06-20] MEDS ORDERED: PIPERACILL/TAZOBAC CONSULT ACTIVE PRN (09:30)
--- NOTE | 2016-06-20 12:32 | Cardiology Follow-Up ---
Subjective Subjective Date of Service: Jun 20, 2016. Pt evaluation today including: conversation w/ patient, physical exam, chart review, lab review, review of studies, review of inpatient medication list Additional Details: Patient felling well this AM. Off pressors since yesterday AM. No recurrent SVT. No other new complaints. Problem List Medical Problems: (1) Abdominal pain Status: Acute (2) C. difficile colitis Status: Acute (3) Colitis Status: Acute (4) Dehydration Status: Acute (5) Fever Status: Acute (6) Hypotension Status: Acute (7) Infection associated with peritoneal dialysis catheter Status: Acute (8) Periumbilical abdominal pain Status: Acute (9) Weakness Status: Acute Review of Systems Constitutional: No fever Eyes: No worsening of vision ENT: No hearing loss Respiratory: No cough, No dyspnea on exertion, No shortness of breath, No sputum Cardiac: No chest pain, No edema, No orthopnea Abdomen: No diarrhea, No nausea, No pain, No vomiting Musculoskeletal: No joint pain, No muscle pain Male : No dysuria Neurologic: No memory loss Psychiatric: No depression symptoms Heme: No abnormal bleeding/bruising, No clotting problems Endo: No fatigue Skin: No rash Objective Vital Signs Last Vital Signs Documentation Date Time Temp Pulse Resp B/P Pulse Ox O2 Delivery O2 Flow Rate FiO2 06/20/16 10:00 59 16 118/72 96 Room Air 06/20/16 08:00 36.9 Physical Exam: General Appearance: no apparent distress ENT: hearing grossly normal Neck: supple Respiratory/Chest: lungs clear, normal breath sounds, no respiratory distress Cardiovascular: regular rate, rhythm, no murmur, + pertinent finding (No erythema, tenderness around chest wall HD catheter) Abdomen: normal bowel sounds, non tender, soft, + pertinent finding (PD cath in place) Extremities: no pedal edema, + pertinent finding (s/p left BKA) Neurologic/Psychiatric: alert, normal mood/affect, oriented x 3, + motor weakness (left sided weakness) Skin: normal color, warm/dry, no rash Lymphatic: no adenopathy Assessment and Plan 1. Hypotension -- improved, off pressors, on broad spectrum antibiotics 2. SVT/AVN Reentry -- no recurrent events 3. Chronic diastolic heart failure -- no pulm or systemic venous congestion on exam 4. Prior DVT -- on anticoagulation 5. ESRD on HD -- plan for HD tomorrow No further events of SVT. Seems to be triggered by acute illness and/or infection. For now continue amiodarone. prison may be a candidate for SVT ablation. Will discuss further with Dr. Cedeño regarding timing but likely as an outpatient when acute issues resolved. Will continue to follow. Medications: Current Inpatient Medications Medications (Trade) Dose Ordered Sig/Rigobreto Route Start Time Stop Time Status Last Admin Dose Admin Acetaminophen (Tylenol Tab) 650 mg Q4H PRN PO 06/18/16 16:30 07/18/16 16:29 Ondansetron HCl 4 mg 4 mg Q6H PRN IV 06/18/16 16:30 07/18/16 16:29 Piperacillin Sod/ Tazobactam Sod/ Dextrose (Zosyn Iv/D5 100ml) 120 ml @ 30 mls/hr Q12@0200,1400 IV 06/19/16 02:00 06/28/16 21:59 06/20/16 02:32 30 MLS/HR Insulin Aspart (novoLOG ASPART) SLIDING SCALE G... ACHS SC 06/18/16 21:00 07/18/16 20:59 06/20/16 11:47 5 UNITS Calcium Acetate (Phoslo Cap) 2,001 mg TIDM PO 06/18/16 18:00 07/18/16 17:59 06/20/16 11:43 2,001 MG Escitalopram Oxalate (Lexapro Tab) 10 mg DAILY PO 06/19/16 09:00 07/19/16 08:59 06/20/16 07:36 10 MG Gabapentin (Neurontin Cap) 400 mg MoWeFr@2100 PO 06/18/16 21:00 07/18/16 20:59 06/18/16 21:00 400 MG Gabapentin (Neurontin Cap) 400 mg SuTuThSa@0900,1400,2200 PO 06/19/16 09:00 07/19/16 08:59 06/19/16 21:39 400 MG Latanoprost (Xalatan Oph Soln) 1 drops HS OPL 06/18/16 21:00 07/18/16 20:59 06/19/16 21:40 1 DROPS Levothyroxine Sodium (Synthroid Tab) 100 mcg DAILYBB PO 06/19/16 06:00 07/19/16 06:59 06/20/16 05:48 100 MCG Midodrine (Proamatine Tab) 2.5 mg MoWeFr@0900,1400 PO 06/20/16 09:00 07/20/16 08:59 06/20/16 07:36 2.5 MG Temazepam (Restoril Cap) 15 mg HS PRN PO 06/18/16 16:30 07/18/16 16:29 Apixaban (Eliquis Tab) 5 mg Q12 PO 06/18/16 21:00 07/18/16 20:59 06/20/16 07:36 5 MG Lactobacillus Acidophilus (Floranex Tab) 4 tab QIDM PO 06/19/16 11:30 07/19/16 11:29 06/20/16 11:44 4 TAB Vancomycin HCl (Consult) 1 ea UD PRN N/A 06/19/16 09:45 07/19/16 09:44 Calcium Acetate (Phoslo Cap) 667 mg BID PRN PO 06/20/16 09:00 07/20/16 08:59 Lactobacillus Acidophilus (Floranex Tab) 1 tab BID PO 06/20/16 21:00 07/20/16 20:59 Piperacillin Sod/ Tazobactam Sod (Consult) 1 ea UD PRN N/A 06/20/16 09:30 07/20/16 09:29 Lab Results: 06/20/16 05:44 Red Blood Count 3.51, Mean Corpuscular Volume 94.3, Mean Corpuscular Hemoglobin 30.2, Mean Corpuscular Hemoglobin Concent 32.0, Mean Platelet Volume 10.3, Neutrophils (%) (Auto) 75.5, Lymphocytes (%) (Auto) 14.8, Monocytes (%) (Auto) 8.6, Eosinophils (%) (Auto) 0.3, Basophils (%) (Auto) 0.5, Neutrophils # (Auto) 2.81, Lymphocytes # (Auto) 0.55, Monocytes # (Auto) 0.32, Eosinophils # (Auto) 0.01, Basophils # (Auto) 0.02 06/20/16 05:44 Test 06/20/16 05:44 06/20/16 10:52 White Blood Count 3.72 K/uL (4.8-10.8) Red Blood Count 3.51 M/uL (4.7-6.1) Hemoglobin 10.6 g/dL (14.0-18.0) Hematocrit 33.1 % (42-52) Mean Corpuscular Volume 94.3 fL (80-100) Mean Corpuscular Hemoglobin 30.2 pg (25-34) Mean Corpuscular Hemoglobin Concent 32.0 g/dl (32-36) Platelet Count 164 K/uL (130-400) Mean Platelet Volume 10.3 fL (7.4-10.4) Neutrophils (%) (Auto) 75.5 % Lymphocytes (%) (Auto) 14.8 % Monocytes (%) (Auto) 8.6 % Eosinophils (%) (Auto) 0.3 % Basophils (%) (Auto) 0.5 % Neutrophils # (Auto) 2.81 K/uL (1.4-6.5) Lymphocytes # (Auto) 0.55 K/uL (1.2-3.4) Monocytes # (Auto) 0.32 K/uL (0.11-0.59) Eosinophils # (Auto) 0.01 K/uL (0-0.5) Basophils # (Auto) 0.02 K/uL (0-0.2) RDW Standard Deviation 51.1 fL (36.4-46.3) RDW Coefficient of Variation 14.9 % (11.5-14.5) Immature Granulocyte % (Auto) 0.3 % Immature Granulocyte # (Auto) 0.01 K/uL (0.00-0.02) Anion Gap 13.0 mmol/L (3-11) Est Creatinine Clear Calc Drug Dose 11.9 ml/min Estimated GFR () 10.3 Estimated GFR (Non- 8.9 BUN/Creatinine Ratio 6.7 (10-20) Calcium Level 8.1 mg/dl (8.5-10.1) Phosphorus Level 4.5 mg/dl (2.5-4.9) Magnesium Level 2.2 mg/dl (1.8-2.4) Total Bilirubin 0.4 mg/dl (0.2-1) Aspartate Amino Transf (AST/SGOT) 9 U/L (15-37) Alanine Aminotransferase (ALT/SGPT) 22 U/L (12-78) Alkaline Phosphatase 136 U/L (45-117) Total Protein 6.4 gm/dl (6.4-8.2) Albumin 2.7 gm/dl (3.4-5.0) Globulin 3.7 gm/dl (2.5-4.0) Albumin/Globulin Ratio 0.7 (0.9-2) Random Vancomycin Level 20.2 mcg/ml Bedside Glucose 198 mg/dl (70-99)
[2016-06-20] MEDS ORDERED: PIPERACILL/TAZOBAC IV 4.5 GM in DEXTROSE 5% 100ML 100 ML IV SCH (14:00)
--- NOTE | 2016-06-20 14:14 | NEPHROLOGY CONSULTATION ---
DATE OF CONSULTATION: 06/20/2016 ATTENDING OF RECORD: Dr. Ovalles. REASON FOR CONSULTATION: ESRD. HISTORY OF PRESENT ILLNESS: This is a 60-year-old male well known to me who dialyzes at the [facility] on Mondays, Wednesdays and Fridays. During the end of Saturday's dialysis treatment, he was not feeling well. Blood pressure was low. The patient was tachycardic as well on dialysis. Blood pressure in the Emergency Room was systolic 60s-80s and was started on pressors and his tachycardia converted to sinus rhythm spontaneously. His pressors were eventually weaned off and blood pressure remains stable now. The patient is relatively asymptomatic. He sometimes notes his heart racing as outpatient, but it only happen very seldomly. The patient does have a history of a PD catheter that was inserted, but nonfunctional at this time and we were making plans as an outpatient to remove the PD catheter. The patient has a tunneled dialysis catheter dependent, have failed attempts at other accesses. Has a very significant vascular disease. The patient was recently discharged from [facility] and while on his own was noncompliant with diet, so he was coming to dialysis over the past 2 weeks with rather large weight gains. PAST MEDICAL HISTORY: Heart disease with 2 heart attacks in the past, congestive heart failure, significant peripheral vascular disease, diabetes, history of a CVA in the past, history of significant C. diff colitis, history of a GI bleed with ulcer at the GE anastomosis where he had his gastric bypass done, hyperlipidemia, hypertension, hypothyroidism. PAST SURGICAL HISTORY: Gastric bypass, toe amputation, hip replacement, cholecystectomy, left BKA, multiple fistula and graft placements, PD catheter placements, tunnel dialysis catheter placements. FAMILY HISTORY: Significant for heart disease. SOCIAL HISTORY: No alcohol. No tobacco. No drugs. Lives independently now with home health. REVIEW OF SYSTEMS: No fevers or chills, no weakness or fatigue. No shortness of breath, no chest pain, no nausea or vomiting, no diarrhea. No rash or itching. The patient relatively asymptomatic now without complaints and did feel funny and had his heart racing and low blood pressure towards the end of dialysis on Saturday, but has since clinically improved. Currently, a full review of systems is otherwise negative. CURRENT MEDICATIONS: Midodrine 2.5 mg on Mondays, Wednesdays, and Fridays; Lexapro 10 mg daily; vancomycin per pharmacy; Neurontin 400 mg 3 times a day on nondialysis days; levothyroxine 100 mcg daily; Zosyn 4.5 grams IV q. 12; Eliquis 5 mg p.o. q. 12; PhosLo 3 p.o. t.i.d. with meals; and Levo drip that has been weaned off. PHYSICAL EXAMINATION: VITAL SIGNS: Temperature 36.4, pulse 44, respiratory rate 10, blood pressure 108/65, satting 93% on room air. GENERAL: Awake, alert, oriented x3. EYES: No scleral icterus. ENT: Moist mucous membranes. NECK: Supple. PULMONARY: Clear to auscultation. CARDIAC: Bradycardic. ABDOMEN: Positive PD catheter. Bowel sounds positive, soft, nontender. EXTREMITIES: No significant clubbing, cyanosis or edema. left bka NEUROLOGIC: Nonfocal. DERMATOLOGIC: No rash or ulcers noted. LABORATORIES AND IMAGING DATA: White count is 3.7, H\T\H 10.6 and 33.1, platelet count is 164. Sodium was 136, potassium 4.1, chloride is 100, bicarbonate is 23, BUN is 42, creatinine 6.3, glucose 130, calcium is 8.1, phosphorus 4.5, mag is 2.2, albumin is 2.7. INR is 1. However, on Eliquis vancomycin is 20. Flu is negative. Blood cultures no growth to date. Chest x-ray shows heart normal in size, low lung volumes, no pleural effusions. IMPRESSION AND PLAN: 1. End-stage renal disease: The patient did have a close to full treatment on Saturday. Today is his regular dialysis day; however, the patient is bradycardic and pressors were just weaned off yesterday. Volume status appears appropriate. Electrolytes were otherwise stable. I would like to hold on dialysis today and reevaluate tomorrow when he is more stable to tolerate dialysis. 2. Anemia of renal failure. Hemoglobin level is 10.6 and we will dose Procrit on dialysis. No indication for transfusion at this time. 3. Renal osteodystrophy; we will continue patient's phosphate binders and follow phosphorus levels intermittently. 3. Access. The patient's peritoneal dialysis catheter is nonfunctional. I do not feel the patient has peritonitis since it has not been used and the site looks clean. I have consulted Dr. Mcdonnell for removal of peritoneal dialysis catheter when patient is deemed stable to tolerate the procedure. I appreciate consultation. HECTOR
--- NOTE | 2016-06-20 14:20 | Pharmacy Progress Note ---
Pharmacy Antibiotic Prog Note Date of Service: Jun 20, 2016. Subjective: The patient is currently receiving VANCOMYCIN and ZOSYN IV - dosing per pharmacy The patient is currently on day # 3 of IV ABX therapy for sepsis, GPC bacteremia Objective: Height (Feet): 5 Height (Inches): 7.00 Weight (Kilograms): 79.100 Levels: Item Value Date Time Random Vancomycin Level 20.2 mcg/ml 06/20/16 0544 Lab Results (24hrs): Laboratory Tests Test 06/20/16 05:44 BUN/Creatinine Ratio 6.7 Blood Urea Nitrogen 42 mg/dl Creatinine 6.30 mg/dl White Blood Count 3.72 K/uL Red Blood Count 3.51 M/uL Hemoglobin 10.6 g/dL Hematocrit 33.1 % Mean Corpuscular Volume 94.3 fL Mean Corpuscular Hemoglobin 30.2 pg Mean Corpuscular Hemoglobin Concent 32.0 g/dl Platelet Count 164 K/uL Mean Platelet Volume 10.3 fL Neutrophils (%) (Auto) 75.5 % Lymphocytes (%) (Auto) 14.8 % Monocytes (%) (Auto) 8.6 % Eosinophils (%) (Auto) 0.3 % Basophils (%) (Auto) 0.5 % Neutrophils # (Auto) 2.81 K/uL Lymphocytes # (Auto) 0.55 K/uL Monocytes # (Auto) 0.32 K/uL Eosinophils # (Auto) 0.01 K/uL Basophils # (Auto) 0.02 K/uL Micro Results: 06/18 BLCX's 1 of 2 cultures growing GPC 06/20 repeat BLCX's x 2 drawn Negative MRSA nasal swab Recent Pertinent Medications: Vancomycin 1700mg IV x 1 06/19 AM Zosyn 4.5gm IV (over 4 hrs) Q 12 hours Assessment & Plan: VANCOMYCIN: * Random level drawn this AM = 20.2 * Patient is not being dialyzed today, he will not likely need redosed as a result as he produces very little urine. Contamination of BLCX is a possibility. He has been afrebrile, no leukocytosis or L shift. Procalcitonin is elevated however this may be secondary to ESRD. * Will redose vancomycin after next HD treatment as level will be less than 20 at that time. ZOSYN * No change in dose required at this time. Pharmacy will continue to follow and will adjust dose/frequency as necessary. Thank you
--- NOTE | 2016-06-20 14:35 | Medical Consult ---
Consultation Note Consultation Note Chief Complaint End stage renal disease/ infected CAPD catheter History of Present Illness The patient is a 60 year old male with ESRD on HD through [facility], who had peritonitis and his previous PD catheter removed and then a new one placed in fall of 2015. Pt continues with recurrent bacteremia and sepsis. CT scan indicates infected CAPD catheter. Pt denies PEOPLES, fever, chills, chest pain, SOB , abd pain, N/V, rest pain, claudication, other complaints. Allergies No Known Allergies (Verified , `, 02/29/16) Home Medications Scheduled Amiodarone HCl (Amiodarone HCl), 200 MG PO DAILY Apixaban (Eliquis), 5 MG PO BID Bisacodyl (Dulcolax), 1 SUPP RE UD Calcium Acetate (Phoslo 667 Mg), 3 CAP PO TID Enteral Nutrition Formula (Nutritional Supplement), 8 OZ PO DAILY Finasteride (Proscar), 1 TAB PO DAILY Gabapentin (Neurontin), 400 MG PO HS Gabapentin (Neurontin), 800 MG PO 3XWK Gabapentin (Neurontin), 400 MG PO TID Lactobacillus Acidophilus (Lactinex), 1 TAB PO BID Latanoprost 0.005% Oph (Xalatan 0.005% Oph), 1 DROP OPL HS Levothyroxine Sodium (Synthroid), 1 TAB PO DAILY Midodrine Hcl (Midodrine Hcl), 2.5 MG PO 3XWK Omeprazole (Prilosec), 20 MG PO DAILY Polyethylene Glycol 3350 (Miralax), 17 GM PO DAILY [nephronex liquid], 5 ML PO BID [pholso caps 687], 1 CAP PO BID Scheduled PRN Acetaminophen Tab (Tylenol), 650 MG PO Q6 PRN for Fever Oxycodone/Acetaminophen 2.5MG/325MG (Percocet 2.5MG/325MG), 1 TAB PO Q6H PRN for Pain Sodium Phosphates (Fleet Enema Six Pack), 1 APPL RE UD PRN for Constipation Temazepam (Temazepam), 15 MG PO HS PRN for Insomnia Problem List Medical Problems: (1) Anemia (2) Bacteremia (3) CAD (coronary artery disease) (4) Congestive Heart Failure Nos (5) Depression (6) Diab W Oth Spec Manifest, Type Ii Or Unspec Type, Not Uncntr (7) Diabetic retinopathy (8) DM type 2 (diabetes mellitus, type 2) (9) End stage renal disease (10) ESRD (end stage renal disease) on dialysis (11) Fluency disorder following cerebrovascular accident (12) History of Clostridium difficile colitis (13) History of CVA (cerebrovascular accident) (14) History of GI bleed (15) History of methicillin resistant staphylococcus aureus (MRSA) (16) History of non-ST elevation myocardial infarction (NSTEMI) (17) Hyperkalemia (18) hyperkalemia, ESRD, wrist fx (19) Hyperlipidemia Nec/Nos (20) Hypertension Nos (21) Hypothyroidism Nos (22) Migraine (23) Morbid obesity (24) Peritonitis (25) Polyneuropathy in diabetes (26) Proteinuria (27) Vitamin D deficiency Surgical Problems: (1) Great toe amputation status (2) H/O gastric bypass (3) H/O total hip arthroplasty (4) History of cholecystectomy (5) History of colonoscopy with polypectomy (6) History of left below knee amputation Surgical / Medical History Hx Cardiac Surgery: No Hx Abdominal Surgery: Yes (Gastric bypass, cholecystectomy, colonoscopy) Hx Cancer Surgery: No Hx Thoracic Surgery: No Hx Orthopedic: Yes (Left BKA '14, VIVIANA) Hx Urinary Tract Surgery: No HX Other Surgery: No Family History FH: heart disease FATHER FHx: cancer FATHER Hypertension Social History Smoking Status: Never Smoker Hx Tobacco Use In Past Year?: No Hx Alcohol Use - Type & Amnt: Yes (Twice/year) Hx Substance Use -Type & Amnt: No Review of Systems Respiratory: No MACIEL, No PND, No cough, No cyanosis, No dyspnea, No hemoptysis, No orthopnea, No problem reported, No short of breath, No sputum production, No stridor, No wheezing Cardiovascular: No chest pain, No chest pressure, No chest tightness, No cyanosis, No diaphoresis, No edema, No intermittent claudication, No lightheadedness, No mumur, No orthopnea, No palpitations, No paroxysmal nocturnal dyspnea, No problem reported, No syncope Gastrointestinal: + abdominal pain Genitourinary - Male: No difficulty urinating, No hematuria, No impotence, No penile discharge, No penile itching, No problem reported, No rash, No testicular pain, No testicular swelling Musculoskeletal: + back pain, + gout, + joint pain, + joint swelling, + muscle pain, + muscle stiffness, + muscle weakness, + neck pain, + problem reported Neurologic: No LOC, No dizziness, No headache, No lethargy, No memory loss, No numbness, No paresthesia, No pre-existing deficit, No problem reported, No seizures, No tics, No tingling, No tremors, No vertigo, No weakness Psychiatric: No alcohol abuse, No anxiety, No auditory hallucinations, No depression, No drug abuse, No homicidal ideation, No mood changes, No problem reported, No suicidal ideation, No visual hallucinations Physical Exam Constitutional: General Apperance: overweight Level of Distress: NAD Ambulation: limited ambulation Psychiatric: Mental Status: active & alert, normal mood, normal affect Orientation: oriented except where noted, to time, to place, to person Memory: recent memory normal, remote memory normal Neck: supple Lungs: Auscultation: breath sounds normal Cardiovascular: Heart Auscultation: RRR Peripheral Pulses: Radial Pulse: normal on the left, normal on the right Femoral Pulse: normal on the left, normal on the right Abdomen: Inspection & Palpation: soft, non-distended, no masses, no CVA tenderness, CAPD catheter in place Musculoskeletal: normal Extremities: Upper Right: no cyanosis, no edema, no varicosities, no palpable cord, no clubbing, no ulcers, no mottling Upper Left: no cyanosis, no edema, no palpable cord, no clubbing, no ulcers , no mottling Lower Right: no cyanosis, no edema, no varicosities, no palpable cord, no clubbing, no ulcers, no mottling Lower Left: no cyanosis, no edema, no varicosities, no palpable cord, no clubbing, no ulcers, no mottling Neurologic: Cranial Nerves: grossly intact Sensation: grossly intact Assessment and Plan Imp: End stage renal disease Infected CAPD catheter Plan: Pt for surgical removal of his CAPD catheter in OR on SATURDAY. I have discussed the risks options and benefits of the procedure with the patient. The patient understands the risks options and benefits and agrees to the procedure.
--- NOTE | 2016-06-20 16:55 | Cardiology Follow-Up ---
Subjective Date of Service: Jun 20, 2016. Pt evaluation today including: conversation w/ patient, physical exam, lab review, review of studies, review of inpatient medication list History of Present Illness This is a very pleasant 60-year-old gentleman who has a history of end-stage kidney disease for which he is on dialysis. He has a history of diabetes mellitus, he does have nonobstructive coronary artery disease identified at catheterization 2009. He had an admission for MRSA bacteremia 12/28/2015 and developed supraventricular tachycardia. 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 It appears from monitoring that he had several episodes terminated with adenosine. He was started on amiodarone during that admission and remains on it. He was also started on Eliquis I believe, I don't know the specific indications. This admission was prompted by hypotension and tachycardia identified on hemodialysis, his blood pressure was in the 60-80 mmHg range during the emergency room. He was started on pressors and his arrhythmia terminated spontaneously to sinus rhythm. He remained hypotensive however after termination of the arrhythmia but apparently felt better. It sounds as though he is aware of the arrhythmia historically but it doesn't typically bother him very much, he describes feeling his heart racing (which he also noted during dialysis previous to this admission) but this is relatively infrequent, perhaps twice a year, and he thinks only lasts several minutes. Clearly the episode that prompted this admission and during his last admission was much longer. With the likelihood that this episode contributed to his presentation and hypotension and medications probably not being sufficient to control his arrhythmia we have discussed electrophysiologic study and ablation. Today he feels well and has no complaints and has not had recurrent arrhythmias. Social History Smoking Status: Never Smoker History of Alcohol Use: Yes (Twice/year) Review of Systems Respiratory: No cough, No dyspnea on exertion, No shortness of breath, No sputum Cardiac: No chest pain, No edema, No orthopnea Medications Cardiovascular: Item Value Date Time Apixaban 5 mg 06/18/16 2100 (Eliquis Tab) Q12/PO 06/20/16 0736 Objective Vital Signs Past 12 Hours Date Time Temp Pulse Resp B/P Pulse Ox O2 Delivery O2 Flow Rate FiO2 06/20/16 12:23 36.5 69 18 94/52 97 Room Air 06/20/16 12:00 Room Air 06/20/16 10:00 59 16 118/72 96 Room Air 06/20/16 08:28 74 12 106/64 06/20/16 08:00 Room Air 06/20/16 08:00 36.9 60 14 114/87 95 Room Air 06/20/16 08:00 Room Air 06/20/16 07:58 60 12 114/87 95 06/20/16 05:59 36.4 44 10 108/65 93 Last Recorded Weight-Kilograms: 79.100 Intake & Output 8-Hour Column 06/19/16 06/20/16 06/20/16 16:00 00:00 08:00 Intake Total 1432 ml 660 ml 175 ml Balance 1432 ml 660 ml 175 ml 24-Hour Column 06/20/16 08:00 Intake Total 2267 ml Balance 2267 ml Physical Exam Constitutional: General Apperance: heathly-appearing Level of Distress: NAD Lungs: Respiratory effort: no dyspnea, good air movement Auscultation: breath sounds normal, no wheezing Cardiovascular: Heart Auscultation: RRR, no murmurs, no rubs, no gallops Peripheral Pulses: Bruits: none appreciated Extremities: no edema Hemodialysis site is in the right upper chest, also a peritoneal dialysis catheter in place in his abdomen Data Laboratory Results: Last 24 Hours Test 06/19/16 20:30 06/20/16 05:44 06/20/16 06:43 06/20/16 10:52 Bedside Glucose 175 mg/dl 130 mg/dl 198 mg/dl White Blood Count 3.72 K/uL Red Blood Count 3.51 M/uL Hemoglobin 10.6 g/dL Hematocrit 33.1 % Mean Corpuscular Volume 94.3 fL Mean Corpuscular Hemoglobin 30.2 pg Mean Corpuscular Hemoglobin Concent 32.0 g/dl Platelet Count 164 K/uL Mean Platelet Volume 10.3 fL Neutrophils (%) (Auto) 75.5 % Lymphocytes (%) (Auto) 14.8 % Monocytes (%) (Auto) 8.6 % Eosinophils (%) (Auto) 0.3 % Basophils (%) (Auto) 0.5 % Neutrophils # (Auto) 2.81 K/uL Lymphocytes # (Auto) 0.55 K/uL Monocytes # (Auto) 0.32 K/uL Eosinophils # (Auto) 0.01 K/uL Basophils # (Auto) 0.02 K/uL RDW Standard Deviation 51.1 fL RDW Coefficient of Variation 14.9 % Immature Granulocyte % (Auto) 0.3 % Immature Granulocyte # (Auto) 0.01 K/uL Sodium Level 136 mmol/L Potassium Level 4.1 mmol/L Chloride Level 100 mmol/L Carbon Dioxide Level 23 mmol/L Anion Gap 13.0 mmol/L Blood Urea Nitrogen 42 mg/dl Creatinine 6.30 mg/dl Est Creatinine Clear Calc Drug Dose 11.9 ml/min Estimated GFR () 10.3 Estimated GFR (Non- 8.9 BUN/Creatinine Ratio 6.7 Random Glucose 130 mg/dl Calcium Level 8.1 mg/dl Phosphorus Level 4.5 mg/dl Magnesium Level 2.2 mg/dl Total Bilirubin 0.4 mg/dl Aspartate Amino Transf (AST/SGOT) 9 U/L Alanine Aminotransferase (ALT/SGPT) 22 U/L Alkaline Phosphatase 136 U/L Total Protein 6.4 gm/dl Albumin 2.7 gm/dl Globulin 3.7 gm/dl Albumin/Globulin Ratio 0.7 Random Vancomycin Level 20.2 mcg/ml Telemetry reviewed: Sinus rhythm, no further SVT Assessment and Plan #1. SVT: He has a well-defined supraventricular tachycardia which has been recorded on 12 leads both in December 2015 and his current admission. Both appear to be typical AV node reentry, the former was 140 bpm, currently 120 bpm. He was started on amiodarone during his last hospitalization which probably explains the decrease in rate. He did seem to have hemodynamic consequence although he probably has other causes for hypotension as well. I suspect the SVT contributed. He did have a very slight enzyme rise presumably due to demand ischemia and he was hypotensive. It is unlikely that we will be able to eliminate the arrhythmia with medical therapy, at this point we need to consider electrophysiology study and ablation despite his multiple comorbidities. I discussed the indications, procedure, risks and alternatives with him and he understands and agrees to proceed. We will plan on doing this tomorrow. Consent obtained. #2. Anticoagulant therapy: I'm not sure why he is on anticoagulation, I don't believe it is due to his rhythm. #3. Hypotension on admission: He was significantly hypotensive and required pressors, this may have been aggravated by the SVT however I don't believe that is the sole cause as his blood pressure should've normalized immediately with termination of the arrhythmia. He seems to have more trouble with the arrhythmia when he is under stress (unless he has morbid as an outpatient and is aware of) and this may be due to high catecholamines. This is a common aggravating factor with AV pippa reentry. His initial hypotension was probably triggered by some other cause and aggravated by the SVT. The heart rate was not high enough probably to cause it by itself although he does not have a normal AV association with AV pippa reentry. Thank you for allowing me to participate in his care.
[2016-06-20] MEDS ORDERED: LEVOFLOXACIN / D5W 500 MG in PREMIXED IN D5W 100 ML IV SCH (20:00)
[2016-06-20] MEDS ORDERED: VANCOMYCIN INJ 1,000 MG in SODIUM CHLORIDE 0.9% 250ML 250 ML IV SCH (21:00)
[2016-06-20] MEDS: LATANOPROST 0.005% OP SOLN 2.5 ML BTL OPL SCH (21:14)
[2016-06-20] MEDS: GABAPENTIN 400 MG CAP PO SCH (21:15)
[2016-06-21] VITALS (56 sets, daily range): BP systolic 62–110; BP diastolic 45–70; PULSE 51–119; TEMP 36.3–36.6; O2SAT 84–98
[2016-06-21] MEDS: PIPERACILL/TAZOBAC IV 4.5 GM in DEXTROSE 5% 100ML 100 ML IV SCH ×2 (02:21→15:58)
[2016-06-21] MEDS: LEVOTHYROXINE 100 MCG TAB PO SCH (05:41)
[2016-06-21 06:25] LABS: BASO % 0.7 %; BASO ABS # 0.03 K/uL (0-0.2); COMPLETE YES; EOS % 4.6 %; HEMATOCRIT 37.3 % (42-52); LYMPH % 18.1 %; LYMPH ABS # 0.82 K/uL (1.2-3.4); MEAN CELL VOLUME 94.9 fL (80-100); MEAN CORPUSCULAR HGB CONC 31.6 g/dl (32-36); MEAN PLATELET VOLUME 10.8 fL (7.4-10.4); MONO % 13.1 %; NEUT % 63.5 %; PLATELET COUNT 166 K/uL (130-400); RED BLOOD COUNT 3.93 M/uL (4.7-6.1); WHITE BLOOD COUNT 4.52 K/uL (4.8-10.8)
[2016-06-21 07:12] LABS: BUN/CREATININE RATIO 6.7 (10-20); CALCIUM 8.2 mg/dl (8.5-10.1)
[2016-06-21] MEDS: CALCIUM ACETATE 667MG GELCAP PO SCH ×3 (07:15→16:03)
[2016-06-21 07:34] LABS: CREATININE 7.6 mg/dl (0.60-1.40)
[2016-06-21] MEDS: INSULIN ASPART 100 UNITS/ML 3 ML PEN SC SCH ×4 (08:09→22:04)
[2016-06-21] MEDS: APIXABAN 2.5 MG TAB PO SCH (08:14)
[2016-06-21] MEDS: ESCITALOPRAM OXALATE 10 MG TAB PO SCH (08:14)
[2016-06-21] MEDS: GABAPENTIN 400 MG CAP PO SCH ×3 (08:14→22:12)
[2016-06-21] MEDS: LACTOBACILLUS ACIDOPHILUS (FLORANEX) TAB PO SCH ×5 (08:14→21:58)
[2016-06-21] MEDS ORDERED: FENTANYL CITRATE INJ 50 MCG/1 ML 2 ML VIAL ONE (08:51)
[2016-06-21] MEDS ORDERED: MIDAZOLAM HCL 5 MG/ML 1 ML VIAL ONE (08:51)
[2016-06-21] MEDS ORDERED: PANTOprazole SOD 40 MG TAB PO SCH (09:00)
[2016-06-21] MEDS ORDERED: ALBUMIN HUMAN 25% 12.5 GM/50 ML VIAL IV ONE (09:00)
--- NOTE | 2016-06-21 09:37 | Cardiology Follow-Up ---
Subjective Date of Service: Jun 21, 2016. Pt evaluation today including: conversation w/ patient, physical exam, lab review History of Present Illness This is a very pleasant 60-year-old gentleman who has a history of end-stage kidney disease for which he is on dialysis. He has a history of diabetes mellitus, he does have nonobstructive coronary artery disease identified at catheterization 2009. He had an admission for MRSA bacteremia 12/28/2015 and developed supraventricular tachycardia. 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 It appears from monitoring that he had several episodes terminated with adenosine. He was started on amiodarone during that admission and remains on it. He was also started on Eliquis I believe, I don't know the specific indications. This admission was prompted by hypotension and tachycardia identified on hemodialysis, his blood pressure was in the 60-80 mmHg range during the emergency room. He was started on pressors and his arrhythmia terminated spontaneously to sinus rhythm. He remained hypotensive however after termination of the arrhythmia but apparently felt better. It sounds as though he is aware of the arrhythmia historically but it doesn't typically bother him very much, he describes feeling his heart racing (which he also noted during dialysis previous to this admission) but this is relatively infrequent, perhaps twice a year, and he thinks only lasts several minutes. Clearly the episode that prompted this admission and during his last admission was much longer. With the likelihood that this episode contributed to his presentation and hypotension and medications probably not being sufficient to control his arrhythmia we have discussed electrophysiologic study and ablation. Today he feels well and has no complaints and has not had recurrent arrhythmias. We will plan on electrophysiologic study and ablation today. Social History Smoking Status: Never Smoker History of Alcohol Use: Yes (Twice/year) Review of Systems Respiratory: No cough, No dyspnea on exertion, No shortness of breath, No sputum Cardiac: No chest pain, No edema, No orthopnea Medications Cardiovascular: Item Value Date Time Midodrine 2.5 mg 06/20/16 0900 (Proamatine Tab) MoWeFr@0900,1400/PO 06/20/16 1349 Apixaban 5 mg 06/18/16 2100 (Eliquis Tab) Q12/PO 06/21/16 0814 Objective Vital Signs Past 12 Hours Date Time Temp Pulse Resp B/P Pulse Ox O2 Delivery O2 Flow Rate FiO2 06/21/16 08:03 36.4 55 16 86/48 94 Room Air 06/21/16 08:00 51 11 06/21/16 07:45 95 Room Air 06/21/16 07:00 55 11 06/21/16 04:00 36.4 54 12 107/63 98 Room Air 06/21/16 04:00 Room Air 06/20/16 23:59 Room Air 06/20/16 23:59 36.6 52 12 146/32 98 Room Air Last Recorded Weight-Kilograms: 81.700 Intake & Output 8-Hour Column 06/20/16 06/21/16 06/21/16 16:00 00:00 08:00 Intake Total 820 ml 760 ml 341 ml Balance 820 ml 760 ml 341 ml 24-Hour Column 06/21/16 08:00 Intake Total 1921 ml Balance 1921 ml Physical Exam Constitutional: General Apperance: heathly-appearing Level of Distress: NAD Lungs: Respiratory effort: no dyspnea, good air movement Auscultation: breath sounds normal, no wheezing Cardiovascular: Heart Auscultation: RRR, no murmurs, no rubs, no gallops Peripheral Pulses: Bruits: none appreciated Extremities: no edema Hemodialysis site is in the right upper chest, also a peritoneal dialysis catheter in place in his abdomen Data Laboratory Results: Last 24 Hours Test 06/20/16 10:52 06/21/16 05:51 06/21/16 05:57 Bedside Glucose 198 mg/dl White Blood Count 4.52 K/uL Red Blood Count 3.93 M/uL Hemoglobin 11.8 g/dL Hematocrit 37.3 % Mean Corpuscular Volume 94.9 fL Mean Corpuscular Hemoglobin 30.0 pg Mean Corpuscular Hemoglobin Concent 31.6 g/dl Platelet Count 166 K/uL Mean Platelet Volume 10.8 fL Neutrophils (%) (Auto) 63.5 % Lymphocytes (%) (Auto) 18.1 % Monocytes (%) (Auto) 13.1 % Eosinophils (%) (Auto) 4.6 % Basophils (%) (Auto) 0.7 % Neutrophils # (Auto) 2.87 K/uL Lymphocytes # (Auto) 0.82 K/uL Monocytes # (Auto) 0.59 K/uL Eosinophils # (Auto) 0.21 K/uL Basophils # (Auto) 0.03 K/uL RDW Standard Deviation 52.8 fL RDW Coefficient of Variation 15.2 % Immature Granulocyte % (Auto) 0.0 % Immature Granulocyte # (Auto) 0.00 K/uL Sodium Level 140 mmol/L Potassium Level 4.0 mmol/L Chloride Level 105 mmol/L Carbon Dioxide Level 18 mmol/L Anion Gap 17.0 mmol/L Blood Urea Nitrogen 51 mg/dl Creatinine 7.60 mg/dl Est Creatinine Clear Calc Drug Dose 10.8 ml/min Estimated GFR () 8.2 Estimated GFR (Non- 7.1 BUN/Creatinine Ratio 6.7 Random Glucose 85 mg/dl Calcium Level 8.2 mg/dl Telemetry reviewed: Sinus rhythm, no further SVT Assessment and Plan #1. SVT: He has a well-defined supraventricular tachycardia which has been recorded on 12 leads both in December 2015 and his current admission. Both appear to be typical AV node reentry, the former was 140 bpm, currently 120 bpm. He was started on amiodarone during his last hospitalization which probably explains the decrease in rate. He did seem to have hemodynamic consequence although he probably has other causes for hypotension as well. I suspect the SVT contributed. He did have a very slight enzyme rise presumably due to demand ischemia and he was hypotensive. It is unlikely that we will be able to eliminate the arrhythmia with medical therapy, at this point we need to perform electrophysiology study and ablation despite his multiple comorbidities. I reviewed the indications, procedure, risks and alternatives with him and he understands and agrees to proceed. #2. Anticoagulant therapy: I'm not sure why he is on anticoagulation, I don't believe it is due to his rhythm. Unfortunately he was given Eliquis this morning , however we are going to proceed with the ablation. #3. Hypotension on admission: He was significantly hypotensive and required pressors, this may have been aggravated by the SVT however I don't believe that is the sole cause as his blood pressure should've normalized immediately with termination of the arrhythmia. He seems to have more trouble with the arrhythmia when he is under stress (unless he has morbid as an outpatient and is aware of) and this may be due to high catecholamines. This is a common aggravating factor with AV pippa reentry. His initial hypotension was probably triggered by some other cause and aggravated by the SVT. The heart rate was not high enough probably to cause it by itself although he does not have a normal AV association with AV pippa reentry. Thank you for allowing me to participate in his care.
--- NOTE | 2016-06-21 09:44 | Procedure Note ---
Pre-Mod Sedation Assessment General Date of Moderate Sedation: Jun 21, 2016. Vital Signs: Vital Signs Past 12 Hours Date Time Temp Pulse Resp B/P Pulse Ox O2 Delivery O2 Flow Rate FiO2 06/21/16 08:03 36.4 55 16 86/48 94 Room Air 06/21/16 08:00 51 11 06/21/16 07:45 95 Room Air 06/21/16 07:00 55 11 06/21/16 04:00 36.4 54 12 107/63 98 Room Air 06/21/16 04:00 Room Air 06/20/16 23:59 Room Air 06/20/16 23:59 36.6 52 12 146/32 98 Room Air Review Cardiovascular: regular rate, rhythm Abdomen: normal bowel sounds Lungs: lungs clear Pre-Sedation Airway Assessment Smoking Status: Never Smoker Procedure Planning Contraindications-for Mod Sed: None Yes Notes The planned sedation has been discussed with the patient and consent obtained. I have identified the patient, determined the appropriateness of sedation and have assessed the patient immediately prior to the procedure. All medicine(s) and interventions are by my order.
[2016-06-21] MEDS ORDERED: EPOETIN ALFA 10,000 UNITS/ML VIAL IV. SCH (10:00)
--- NOTE | 2016-06-21 11:59 | Procedure Note ---
Post-Mod Sedation Assessment General Date of Moderate Sedation Jun 21, 2016. Vital Signs: Vital Signs Past 12 Hours Date Time Temp Pulse Resp B/P Pulse Ox O2 Delivery O2 Flow Rate FiO2 06/21/16 08:03 36.4 55 16 86/48 94 Room Air 06/21/16 08:00 51 11 06/21/16 07:45 95 Room Air 06/21/16 07:00 55 11 06/21/16 04:00 36.4 54 12 107/63 98 Room Air 06/21/16 04:00 Room Air 06/20/16 23:59 Room Air 06/20/16 23:59 36.6 52 12 146/32 98 Room Air Review - Discharge Criteria Vital Signs Stable: Yes Alert/Oriented/Conversant: Yes Returned to Baseline Mental St: Yes Nausea Absent/Minimal: Yes Pain/Discomfort/Absent/Minimal: Yes Normal/Baseline Respirations: Yes Active Bleeding?: No
--- NOTE | 2016-06-21 12:02 | Cardiology Procedure Brief Nt ---
Preliminary Cardiology Note Procedure Date Jun 21, 2016. Pre-Procedure Diagnosis SVT Post-Procedure Diagnosis paroxysmal atrial tachycardia Procedure(s) Performed 3 There electrophysiologic study 3-D mapping Ablation of atrial tachycardia Splitter Hand Dr. Cedeño Pearl Digger(s) none Estimated Blood Loss 10 cc Preliminary Findings No evidence of dual AV pippa pathways or inducible AV node reentry, no evidence of bypass tract conduction Mapping of an easily inducible atrial tachycardia demonstrates a location at the inferior/right lateral right atrium. Ablation performed in this location appears to be reasonably successful. Recommendations Returned to ICU Specimens None Anesthesia local with sedation Complication(s) None Disposition Surgical ICU
[2016-06-21] MEDS ORDERED: ALBUMIN HUMAN 25% 12.5 GM/50 ML VIAL IV SCH (12:45)
[2016-06-21] MEDS ORDERED: VANCOMYCIN INJ 750 MG in SODIUM CHLORIDE 0.9% 250ML 250 ML IV ONE (14:00)
--- NOTE | 2016-06-21 14:03 | Progress Note ---
Progress Note Patient for removal of his peritoneal dialysis catheter tomorrow. I have discussed the risks options and benefits of the procedure with the patient. The patient understands the risks options and benefits and agrees to the procedure.
--- NOTE | 2016-06-21 14:22 | Anesthesiology Progress Note ---
Pre-OP Anesthesia Assessment Date of Note Jun 21, 2016. Notes Saw patient in ICU. Pt appears comfortable in no distress, currently receiving dialysis. This is a 60 year old male admitted for tachycardia and hypotension, currently receiving antibiotics for a suspected sepsis related to hemodialysis catheter. Patient is alert and oriented and no longer on pressor support, appears comfortable with no notable s/s of distress on room air. Discussed the patients medical history and planned procedure for tomorrow. Discussed planned anesthesia options, including the risks and benefits. Answered all patient questions, consent signed.
--- NOTE | 2016-06-21 15:55 | Dialysis Progress Note ---
Nephrology Dialysis Note Date of Service: Jun 21, 2016. Subjective Patient is a 60-year-old male with ESRD who presented to the ED with tachycardia arrythmia and hypotension. Patient was seen and examined while on dialysis. Underwent ablation with cardiology today. also planning on removing PD catheter while inpatient. likely tomorrow. Patient states that he is doing well. SOB is improved. Also reports improved appetite. Denies any chest pain, cramping, nausea, or vomiting. access working well. Tunneled dialysis catheter dependent. Objective Date Time Temp Pulse Resp B/P Pulse Ox O2 Delivery O2 Flow Rate FiO2 06/21/16 15:30 93 Room Air 06/21/16 15:15 71 88/56 06/21/16 15:00 70 90/56 06/21/16 14:45 70 91/62 06/21/16 14:30 73 88/52 06/21/16 14:15 73 80/52 06/21/16 14:00 74 75/53 06/21/16 13:45 75 11 94 06/21/16 13:45 74 72/51 06/21/16 13:43 75 18 72/51 06/21/16 13:30 75 77/47 06/21/16 13:30 76 10 92 06/21/16 13:28 75 12 77/47 92 06/21/16 13:15 75 11 92 06/21/16 13:15 74 78/48 06/21/16 13:13 74 11 78/48 06/21/16 13:00 74 76/47 06/21/16 13:00 74 11 92 06/21/16 13:00 74 76/47 06/21/16 12:58 73 12 76/47 91 06/21/16 12:45 66 11 92 06/21/16 12:45 62 74/56 06/21/16 12:44 90 12 74/56 92 06/21/16 12:32 61 10 94/56 96 06/21/16 12:31 62 94/56 06/21/16 12:30 63 10 94 06/21/16 12:30 93 Room Air 06/21/16 12:28 63 9 78/47 06/21/16 12:26 63 13 79/48 06/21/16 12:25 36.3 60 78/47 06/21/16 12:05 60 16 91/75 98 Room Air 06/21/16 11:50 65 16 89/45 98 Room Air 06/21/16 08:03 36.4 55 16 86/48 94 Room Air 06/21/16 08:00 51 11 06/21/16 07:45 95 Room Air 06/21/16 07:00 55 11 06/21/16 04:00 36.4 54 12 107/63 98 Room Air 06/21/16 04:00 Room Air 06/20/16 23:59 Room Air 06/20/16 23:59 36.6 52 12 146/32 98 Room Air 06/20/16 20:00 36.4 59 12 115/57 98 Room Air 06/20/16 20:00 Room Air 06/20/16 16:00 36.9 51 18 114/61 94 Room Air 06/20/16 16:00 Room Air Physical Exam: GENERAL: Awake, alert, oriented x3. EYES: No scleral icterus. ENT: Moist mucous membranes. NECK: Supple. PULMONARY: Clear to auscultation. CARDIAC: sinus rhythm. no murmers. no longer bradycardic. ABDOMEN: +PD catheter. +BS soft, nontender. EXTREMITIES: No significant clubbing, cyanosis or edema. NEUROLOGIC: Nonfocal. DERMATOLOGIC: No rash or ulcers noted. Left BKA. Current Inpatient Medications Medications (Trade) Dose Ordered Sig/Rigoberto Route Start Time Stop Time Status Last Admin Dose Admin Acetaminophen (Tylenol Tab) 650 mg Q4H PRN PO 06/18/16 16:30 07/18/16 16:29 Ondansetron HCl 4 mg 4 mg Q6H PRN IV 06/18/16 16:30 07/18/16 16:29 Piperacillin Sod/ Tazobactam Sod/ Dextrose (Zosyn Iv/D5 100ml) 120 ml @ 30 mls/hr Q12@0200,1400 IV 06/19/16 02:00 06/28/16 21:59 06/21/16 02:21 30 MLS/HR Insulin Aspart (novoLOG ASPART) SLIDING SCALE G... ACHS SC 06/18/16 21:00 07/18/16 20:59 06/20/16 17:01 5 UNITS Calcium Acetate (Phoslo Cap) 2,001 mg TIDM PO 06/18/16 18:00 07/18/16 17:59 06/20/16 16:54 2,001 MG Escitalopram Oxalate (Lexapro Tab) 10 mg DAILY PO 06/19/16 09:00 07/19/16 08:59 06/21/16 08:14 10 MG Gabapentin (Neurontin Cap) 400 mg MoWeFr@2100 PO 06/18/16 21:00 07/18/16 20:59 06/20/16 21:15 400 MG Gabapentin (Neurontin Cap) 400 mg SuTuThSa@0900,1400,2200 PO 06/19/16 09:00 07/19/16 08:59 06/21/16 08:14 400 MG Latanoprost (Xalatan Oph Soln) 1 drops HS OPL 06/18/16 21:00 07/18/16 20:59 06/20/16 21:14 1 DROPS Levothyroxine Sodium (Synthroid Tab) 100 mcg DAILYBB PO 06/19/16 06:00 07/19/16 06:59 06/20/16 05:48 100 MCG Midodrine (Proamatine Tab) 2.5 mg MoWeFr@0900,1400 PO 06/20/16 09:00 07/20/16 08:59 06/20/16 13:49 2.5 MG Temazepam (Restoril Cap) 15 mg HS PRN PO 06/18/16 16:30 07/18/16 16:29 Apixaban (Eliquis Tab) 5 mg Q12 PO 06/18/16 21:00 07/18/16 20:59 06/21/16 08:14 5 MG Lactobacillus Acidophilus (Floranex Tab) 4 tab QIDM PO 06/19/16 11:30 07/19/16 11:29 06/21/16 08:14 4 TAB Vancomycin HCl (Consult) 1 ea UD PRN N/A 06/19/16 09:45 07/19/16 09:44 Calcium Acetate (Phoslo Cap) 667 mg BID PRN PO 06/20/16 09:00 07/20/16 08:59 Lactobacillus Acidophilus (Floranex Tab) 1 tab BID PO 06/20/16 21:00 07/20/16 20:59 06/20/16 21:15 1 TAB Piperacillin Sod/ Tazobactam Sod (Consult) 1 ea UD PRN N/A 06/20/16 09:30 07/20/16 09:29 Epoetin Juan A 53588 units 10,000 units TODAY@1000 IV. 06/21/16 10:00 06/21/16 16:00 06/21/16 14:18 10,000 UNITS Vancomycin HCl/ Sodium Chloride (Vancomycin Inj/ Nss 250ml) 265 ml @ 125 mls/hr TODAY@1400 ONCE IV 06/21/16 14:00 06/21/16 16:07 Albumin Human (Albumin 25%) 12.5 gm 1245 IV 06/21/16 12:45 06/21/16 18:00 06/21/16 13:08 12.5 GM Last 24 Hours Test 06/20/16 15:50 06/20/16 20:59 06/20/16 21:48 06/21/16 05:50 Bedside Glucose 120 mg/dl 67 mg/dl 93 mg/dl 83 mg/dl Test 06/21/16 05:51 06/21/16 05:57 06/21/16 12:25 White Blood Count 4.52 K/uL Red Blood Count 3.93 M/uL Hemoglobin 11.8 g/dL Hematocrit 37.3 % Mean Corpuscular Volume 94.9 fL Mean Corpuscular Hemoglobin 30.0 pg Mean Corpuscular Hemoglobin Concent 31.6 g/dl Platelet Count 166 K/uL Mean Platelet Volume 10.8 fL Neutrophils (%) (Auto) 63.5 % Lymphocytes (%) (Auto) 18.1 % Monocytes (%) (Auto) 13.1 % Eosinophils (%) (Auto) 4.6 % Basophils (%) (Auto) 0.7 % Neutrophils # (Auto) 2.87 K/uL Lymphocytes # (Auto) 0.82 K/uL Monocytes # (Auto) 0.59 K/uL Eosinophils # (Auto) 0.21 K/uL Basophils # (Auto) 0.03 K/uL RDW Standard Deviation 52.8 fL RDW Coefficient of Variation 15.2 % Immature Granulocyte % (Auto) 0.0 % Immature Granulocyte # (Auto) 0.00 K/uL Sodium Level 140 mmol/L Potassium Level 4.0 mmol/L Chloride Level 105 mmol/L Carbon Dioxide Level 18 mmol/L Anion Gap 17.0 mmol/L Blood Urea Nitrogen 51 mg/dl Creatinine 7.60 mg/dl Est Creatinine Clear Calc Drug Dose 10.8 ml/min Estimated GFR () 8.2 Estimated GFR (Non- 7.1 BUN/Creatinine Ratio 6.7 Random Glucose 85 mg/dl Calcium Level 8.2 mg/dl Bedside Glucose 79 mg/dl Date/Time Source Procedure Growth Status 06/21/16 08:15 Stool C.difficile Toxin B Gene (PCR) - Final No C. difficile toxin B gene detected Complete Other Studies: 06/19/16 06/20/16 06/21/16 08:00 08:00 08:00 Intake Total 807 ml 2267 ml 1921 ml Balance 807 ml 2267 ml 1921 ml Assessment & Plan ESRD-patient was currently seen on dialysis. with asymptomatic hypotension. reduced UF to improve BP. continue with dialysis on // or as clinical condition dictates. using dialysis for cleaning and less for fluid removal. tolerating dialysis well. potassium level adequate at 4.0. access working well. continue to monitor BP and volume status. Anemia of renal failure. Hemoglobin level is improved at 11.8 and continue with Procrit on dialysis PRN. No need for transfusion at this time. Renal osteodystrophy: Continue with phosphate binders with meals and snacks as prescribed and will follow phosphorus level intermittently. PD Access. Patient's peritoneal dialysis catheter is nonfunctional. Vascular surgery consulted and plan to remove it. Likely tomorrow. Appreciate their input. This patient was seen and treated with direct collaboration with Dr. Buchanan. Thank you for the opportunity to participate in this patient's care. Appreciate the Consult. ATTENDING NOTE: I performed a history and physical examination of the patient, including specifically on history- pt continues to feel good and has a very good appetite , on physical exam-cta, and my impression and plan are ESRD-continue dialysis and seen on dialysis with low bp but asymptomatic. since does not appear grossly volume overloaded, will decrease uf. tentatively planned for pd catheter removal tomorrow. I have discussed the patient's management with Katie Dodge PA-C, Please refer to above note for the documented findings and plan of care. Marky Buchanan DO
--- NOTE | 2016-06-21 17:14 | Progress Note ---
Subjective Date of Service: Jun 21, 2016. Subjective Pt evaluation today including: conversation w/ patient, physical exam, chart review, lab review, review of studies Problem List Medical Problems: (1) Abdominal pain Status: Acute (2) C. difficile colitis Status: Acute (3) Colitis Status: Acute (4) Dehydration Status: Acute (5) Fever Status: Acute (6) Hypotension Status: Acute (7) Infection associated with peritoneal dialysis catheter Status: Acute (8) Periumbilical abdominal pain Status: Acute (9) Weakness Status: Acute Review of Systems Constitutional: No chills, No fatigue, No fever, No problem reported, No see HPI, No sweats, No weakness, No weight loss Eyes: No diplopia, No discharge, No eye pain, No problem reported, No redness, No see HPI, No worsening of vision ENT: No dental problems, No hearing loss, No nasal symptoms, No problem reported, No see HPI, No sore throat, No tinnitus, No trouble swallowing, No unusual epistaxis Respiratory: No cough, No dyspnea at rest, No dyspnea on exertion, No hemoptysis, No problem reported, No see HPI, No shortness of breath, No sputum, No wheezing Cardiac: No PND, No chest pain, No claudication, No edema, No orthopnea, No palpitations, No problem reported, No see HPI Abdomen: No GI bleeding, No constipation, No diarrhea, No nausea, No pain, No problem reported, No see HPI, No vomiting Musculoskeletal: No calf pain, No joint pain, No muscle pain, No problem reported, No see HPI, No swelling Neurologic: No balance problems, No memory loss, No numbness/tingling, No paralysis, No problem reported, No see HPI, No vertigo, No weakness Psychiatric: No anhedonism, No anxiety, No depression symptoms, No insomnia, No problem reported, No see HPI, No substance abuse Skin: No bleeding, No color change, No itch, No new/changing skin lesions, No problem reported, No rash, No see HPI Medications Current Inpatient Medications Medications (Trade) Dose Ordered Sig/Rigoberto Route Start Time Stop Time Status Last Admin Dose Admin Acetaminophen (Tylenol Tab) 650 mg Q4H PRN PO 06/18/16 16:30 07/18/16 16:29 Ondansetron HCl 4 mg 4 mg Q6H PRN IV 06/18/16 16:30 07/18/16 16:29 Piperacillin Sod/ Tazobactam Sod/ Dextrose (Zosyn Iv/D5 100ml) 120 ml @ 30 mls/hr Q12@0200,1400 IV 06/19/16 02:00 06/28/16 21:59 06/21/16 15:58 30 MLS/HR Insulin Aspart (novoLOG ASPART) SLIDING SCALE G... ACHS SC 06/18/16 21:00 07/18/16 20:59 06/20/16 17:01 5 UNITS Calcium Acetate (Phoslo Cap) 2,001 mg TIDM PO 06/18/16 18:00 07/18/16 17:59 06/21/16 16:03 2,001 MG Escitalopram Oxalate (Lexapro Tab) 10 mg DAILY PO 06/19/16 09:00 07/19/16 08:59 06/21/16 08:14 10 MG Gabapentin (Neurontin Cap) 400 mg MoWeFr@2100 PO 06/18/16 21:00 07/18/16 20:59 06/20/16 21:15 400 MG Gabapentin (Neurontin Cap) 400 mg SuTuThSa@0900,1400,2200 PO 06/19/16 09:00 07/19/16 08:59 06/21/16 15:58 400 MG Latanoprost (Xalatan Oph Soln) 1 drops HS OPL 06/18/16 21:00 07/18/16 20:59 06/20/16 21:14 1 DROPS Levothyroxine Sodium (Synthroid Tab) 100 mcg DAILYBB PO 06/19/16 06:00 07/19/16 06:59 06/20/16 05:48 100 MCG Midodrine (Proamatine Tab) 2.5 mg MoWeFr@0900,1400 PO 06/20/16 09:00 07/20/16 08:59 06/20/16 13:49 2.5 MG Temazepam (Restoril Cap) 15 mg HS PRN PO 06/18/16 16:30 07/18/16 16:29 Apixaban (Eliquis Tab) 5 mg Q12 PO 06/18/16 21:00 07/18/16 20:59 06/21/16 08:14 5 MG Lactobacillus Acidophilus (Floranex Tab) 4 tab QIDM PO 06/19/16 11:30 07/19/16 11:29 06/21/16 16:03 4 TAB Vancomycin HCl (Consult) 1 ea UD PRN N/A 06/19/16 09:45 07/19/16 09:44 Calcium Acetate (Phoslo Cap) 667 mg BID PRN PO 06/20/16 09:00 07/20/16 08:59 Lactobacillus Acidophilus (Floranex Tab) 1 tab BID PO 06/20/16 21:00 07/20/16 20:59 06/20/16 21:15 1 TAB Piperacillin Sod/ Tazobactam Sod (Consult) 1 ea UD PRN N/A 06/20/16 09:30 07/20/16 09:29 Albumin Human (Albumin 25%) 12.5 gm 1245 IV 06/21/16 12:45 06/21/16 18:00 06/21/16 13:08 12.5 GM Objective Vital Signs Date Time Temp Pulse Resp B/P Pulse Ox O2 Delivery O2 Flow Rate FiO2 06/21/16 16:31 36.3 71 91/63 06/21/16 15:30 93 Room Air 06/21/16 15:15 71 88/56 06/21/16 15:00 70 90/56 06/21/16 14:45 70 91/62 06/21/16 14:30 73 88/52 06/21/16 14:15 73 80/52 06/21/16 14:00 74 75/53 06/21/16 13:45 75 11 94 06/21/16 13:45 74 72/51 06/21/16 13:43 75 18 72/51 06/21/16 13:30 75 77/47 06/21/16 13:30 76 10 92 06/21/16 13:28 75 12 77/47 92 06/21/16 13:15 75 11 92 06/21/16 13:15 74 78/48 06/21/16 13:13 74 11 78/48 06/21/16 13:00 74 76/47 06/21/16 13:00 74 11 92 06/21/16 13:00 74 76/47 06/21/16 12:58 73 12 76/47 91 06/21/16 12:45 66 11 92 06/21/16 12:45 62 74/56 06/21/16 12:44 90 12 74/56 92 06/21/16 12:32 61 10 94/56 96 06/21/16 12:31 62 94/56 06/21/16 12:30 63 10 94 06/21/16 12:30 93 Room Air 06/21/16 12:28 63 9 78/47 06/21/16 12:26 63 13 79/48 06/21/16 12:25 36.3 60 78/47 06/21/16 12:05 60 16 91/75 98 Room Air 06/21/16 11:50 65 16 89/45 98 Room Air 06/21/16 08:03 36.4 55 16 86/48 94 Room Air 06/21/16 08:00 51 11 06/21/16 07:45 95 Room Air 06/21/16 07:00 55 11 06/21/16 04:00 36.4 54 12 107/63 98 Room Air 06/21/16 04:00 Room Air 06/20/16 23:59 Room Air 06/20/16 23:59 36.6 52 12 146/32 98 Room Air 06/20/16 20:00 36.4 59 12 115/57 98 Room Air 06/20/16 20:00 Room Air Physical Exam General Appearance: + mild distress Eyes: normal inspection, PERRL, EOMI ENT: normal ENT inspection, hearing grossly normal, TMs normal Neck: supple Respiratory/Chest: chest non-tender, lungs clear, normal breath sounds, no respiratory distress, no accessory muscle use Cardiovascular: regular rate, rhythm, no edema, no gallop, no murmur Abdomen: normal bowel sounds, non tender, soft, no organomegaly, no pulsatile mass Extremities: normal range of motion, non-tender, + pertinent finding (left BBKA ) Neurologic/Psychiatric: powder loader II-XII nml as tested, no motor/sensory deficits, alert, normal mood/affect, oriented x 3 Skin: normal color, warm/dry, no rash Laboratory Results Last 24 Hours Test 06/20/16 20:59 06/20/16 21:48 06/21/16 05:50 06/21/16 05:51 Bedside Glucose 67 mg/dl 93 mg/dl 83 mg/dl White Blood Count 4.52 K/uL Red Blood Count 3.93 M/uL Hemoglobin 11.8 g/dL Hematocrit 37.3 % Mean Corpuscular Volume 94.9 fL Mean Corpuscular Hemoglobin 30.0 pg Mean Corpuscular Hemoglobin Concent 31.6 g/dl Platelet Count 166 K/uL Mean Platelet Volume 10.8 fL Neutrophils (%) (Auto) 63.5 % Lymphocytes (%) (Auto) 18.1 % Monocytes (%) (Auto) 13.1 % Eosinophils (%) (Auto) 4.6 % Basophils (%) (Auto) 0.7 % Neutrophils # (Auto) 2.87 K/uL Lymphocytes # (Auto) 0.82 K/uL Monocytes # (Auto) 0.59 K/uL Eosinophils # (Auto) 0.21 K/uL Basophils # (Auto) 0.03 K/uL RDW Standard Deviation 52.8 fL RDW Coefficient of Variation 15.2 % Immature Granulocyte % (Auto) 0.0 % Immature Granulocyte # (Auto) 0.00 K/uL Test 06/21/16 05:57 06/21/16 12:25 Sodium Level 140 mmol/L Potassium Level 4.0 mmol/L Chloride Level 105 mmol/L Carbon Dioxide Level 18 mmol/L Anion Gap 17.0 mmol/L Blood Urea Nitrogen 51 mg/dl Creatinine 7.60 mg/dl Est Creatinine Clear Calc Drug Dose 10.8 ml/min Estimated GFR () 8.2 Estimated GFR (Non- 7.1 BUN/Creatinine Ratio 6.7 Random Glucose 85 mg/dl Calcium Level 8.2 mg/dl Bedside Glucose 79 mg/dl Assessment and Plan This is a 60 yo m from [facility] with a h/o ESRD (followed by Dr Buchanan), DMII , h/o MRSA and C diff and post MT x 2 that presented to us in the ED with Palpitations yesterday during dialysis he developed rapid junctional rhythm which actually spontaneously converted also had systolic hypotension between 70-80. Assessment/plan: Septic shock secondary to unknown source , improved, currently of levophed cortisol level is 8.85 in the circumstances of his very low blood pressure, it might indicate relative adrenal insufficiency , will start hydrocortisone multiple potential sources, HD cath, PD cath, Patient for removal of his peritoneal dialysis catheter tomorrow will F/U Blood Cx, 1/2 GPC, 2 more BCx sent obtain UA w Ucx (he makes small amount of urine) Not obtained yet Ascitic fluid Cx, not obtained yet DC levofloxacin continue Zosyn/vanco DC Tamiflu, no stigmata of flu infection since he is off pressors, can be transferred to the floor now SVT currently normal sinus consult director call center sales appreciated, considering electrophysiology study and ablation despite his multiple comorbidities Patient has had an echo in December 2015 - EF 55-60% LV normal in size and motion - Grade I diastolic failure ESRD requiring dialysis consult ceramic tiler for inpatient dialysis on schedule H/O C Diff will DC levofloxacin Add lactinex for C diff prophylaxis DMII SSI DVT prophylaxis already on AC Hypothyroidism TSH was slightly elevated continue synthroid same dose Hx of A fib continue AC,
[2016-06-21] MEDS ORDERED: NURSING VERBAL MED ORDER ONE (17:30)
[2016-06-21] MEDS: HYDROCORTISONE IV 50 MG in SYRINGE 0 ML IV SCH (17:47)
[2016-06-21] MEDS ORDERED: NOREPINEPHRINE BIT INJ 8 MG in DEXTROSE 5% 500ML 500 ML IV PRN (18:55)
[2016-06-21] MEDS ORDERED: HYDROCORTISONE IV 50 MG in SYRINGE 0 ML IV ONE (19:15)
[2016-06-21] MEDS: ALBUMIN HUMAN 25% 12.5 GM/50 ML VIAL IV SCH (19:33)
[2016-06-21] MEDS: LATANOPROST 0.005% OP SOLN 2.5 ML BTL OPL SCH (21:58)
[2016-06-22] VITALS (10 sets, daily range): BP systolic 100–150; BP diastolic 57–80; PULSE 53–75; TEMP 36.5–36.8; O2SAT 92–95; Ht 170.2 cm; Wt 85.7 kg
[2016-06-22] MEDS: HYDROCORTISONE IV 50 MG in SYRINGE 0 ML IV SCH ×3 (02:00→16:55)
[2016-06-22] MEDS: PIPERACILL/TAZOBAC IV 4.5 GM in DEXTROSE 5% 100ML 100 ML IV SCH (02:03)
[2016-06-22 06:15] LABS: BASO % 0.4 %; BASO ABS # 0.02 K/uL (0-0.2); COMPLETE YES; EOS % 0.4 %; HEMATOCRIT 37.4 % (42-52); IG% 0.2 %; LYMPH % 7.1 %; LYMPH ABS # 0.35 K/uL (1.2-3.4); MEAN CELL VOLUME 95.4 fL (80-100); MEAN CORPUSCULAR HEMOGLOBIN 30.6 pg (25-34); MEAN CORPUSCULAR HGB CONC 32.1 g/dl (32-36); MEAN PLATELET VOLUME 11.4 fL (7.4-10.4); MONO % 3.2 %; NEUT % 88.7 %; PLATELET COUNT 194 K/uL (130-400); RED BLOOD COUNT 3.92 M/uL (4.7-6.1); WHITE BLOOD COUNT 4.96 K/uL (4.8-10.8)
[2016-06-22] MEDS: LEVOTHYROXINE 100 MCG TAB PO SCH (06:22)
[2016-06-22 07:04] LABS: ALB/GLOB RATIO 0.8 (0.9-2); BUN/CREATININE RATIO 5.2 (10-20); CALCIUM 8.2 mg/dl (8.5-10.1); CREATININE 5.1 mg/dl (0.60-1.40); MAGNESIUM 2.2 mg/dl (1.8-2.4); POTASSIUM 4.1 mmol/L (3.5-5.1)
[2016-06-22] MEDS: INSULIN ASPART 100 UNITS/ML 3 ML PEN SC SCH ×5 (07:35→21:08)
[2016-06-22] MEDS ORDERED: KETAMINE HCL INJ 50 MG/ML 10 ML VIAL ONE (07:50)
[2016-06-22] MEDS ORDERED: FENTANYL CITRATE INJ 50 MCG/1 ML 2 ML VIAL ONE ×2 (07:50→10:08)
[2016-06-22] MEDS ORDERED: MIDAZOLAM HCL 1 MG/ML 2ML VIAL ONE (07:50)
--- NOTE | 2016-06-22 07:55 | Progress Note ---
Progress Note Patient for removal of his peritoneal catheter. I have discussed the risks options and benefits of the procedure with the patient. The patient understands the risks options and benefits and agrees to the procedure. I have examined the patient, reviewed the History & Physical and in the interval since the performance of the History & Physical I have noted the following changes of clinical significance: No changes noted
[2016-06-22] MEDS ORDERED: FENTANYL CITRATE INJ 50 MCG/1 ML 2 ML VIAL IV PRN (08:15)
[2016-06-22] MEDS ORDERED: ATROPINE SULFATE 0.1 MG/ML 5ML SYR IV PRN (08:15)
[2016-06-22] MEDS ORDERED: EpHEDrine SULFATE INJ 50 MG/ML AMP IV PRN (08:15)
[2016-06-22] MEDS ORDERED: PROPOFOL IV EMULSION 10 MG/ML 20 ML VIAL IV ONE (08:35)
[2016-06-22] MEDS ORDERED: SUCCINYLCHOLINE 100MG/5ML SYR IV ONE (08:35)
[2016-06-22] MEDS ORDERED: LIDOCAINE HCL 2% 2 ML VIAL (20MG/ML) ONE (08:35)
--- NOTE | 2016-06-22 08:38 | [facility] Post Operative Brief Note ---
Immediate Operative Summary Operative Date Jun 22, 2016. Pre-Operative Diagnosis Non functioning CAPD catheter Post-Operative Diagnosis Non functioning CAPD catheter Procedure(s) Performed Removal CAPD catheter Surgeon Dr. Unruly Mcdonnell Green Hide Inspector Surgeon(s) none Estimated Blood Loss 10 ml Findings catheter and both cuffs removed Specimens A. Explanted peritoneal dialysis catheter Anesthesia MAC Complication(s) None Disposition Surgical ICU
[2016-06-22] MEDS ORDERED: MIX: 0.5% BUPIVACAINE W/EPI 1:200,000+1%LIDO 50:50 INJ ONE (08:46)
--- NOTE | 2016-06-22 08:58 | OPERATIVE REPORT ---
DATE OF OPERATION: 06/22/2016 PREOPERATIVE DIAGNOSIS: Nonfunctional peritoneal dialysis catheter. POSTOPERATIVE DIAGNOSIS: Same. PROCEDURE: Removal of peritoneal dialysis catheter. SURGEON: Dr. Mcdonnell. ANESTHETIC: MAC. PROCEDURE INDICATIONS: The patient is a 60-year-old gentleman with end-stage renal disease, on hemodialysis. He has a PD catheter. This was replaced twice. It is still nonfunctional. On a CT scan, he has a large amount of stranding of fibrin around the catheter and the entire catheter in the peritoneum. It was recommended we remove the catheter being that it will not be able to work. He understands the risks, options and benefits and agreed to have this procedure. OPERATION AND FINDINGS: The patient was taken to the operating room and placed in the supine position. After the abdomen was prepped and draped in a sterile manner, local anesthetic was administered. A longitudinal incision was made in the line of the old incision in the mid abdomen just above the umbilicus. This was carried down to where the catheter was seen in the peritoneum. The catheter was freed up. The cuff was freed up from the peritoneum and the catheter removed from the abdomen. The peritoneum and fascia was then closed with 3-0 Prolene suture. The subcutaneous cuff was identified, it was freed up from the surrounding tissue and the catheter was removed in its entirety. The wound was then inspected. Adequate hemostasis was noted. The wound was then closed with a running 3-0 Vicryl subcutaneous layer and igor for the skin. Sterile dressings were applied to the wounds and the patient left the operating room in good condition and tolerated the procedure well. I attest to the content of the Intraoperative Record and any orders documented therein. Any exceptio ns are noted below.
[2016-06-22] MEDS ORDERED: PANTOprazole SOD 40 MG TAB PO SCH (09:00)
--- NOTE | 2016-06-22 09:17 | Progress Note ---
Subjective Date of Service: Jun 22, 2016. Subjective Pt evaluation today including: conversation w/ patient, physical exam, chart review, lab review, review of inpatient medication list Problem List Medical Problems: (1) Abdominal pain Status: Acute (2) C. difficile colitis Status: Acute (3) Colitis Status: Acute (4) Dehydration Status: Acute (5) Fever Status: Acute (6) Hypotension Status: Acute (7) Infection associated with peritoneal dialysis catheter Status: Acute (8) Periumbilical abdominal pain Status: Acute (9) Weakness Status: Acute Review of Systems Constitutional: No chills, No fatigue, No fever, No problem reported, No see HPI, No sweats, No weakness, No weight loss Eyes: No diplopia, No discharge, No eye pain, No problem reported, No redness, No see HPI, No worsening of vision ENT: No dental problems, No hearing loss, No nasal symptoms, No problem reported, No see HPI, No sore throat, No tinnitus, No trouble swallowing, No unusual epistaxis Respiratory: No cough, No dyspnea at rest, No dyspnea on exertion, No hemoptysis, No problem reported, No see HPI, No shortness of breath, No sputum, No wheezing Cardiac: No PND, No chest pain, No claudication, No edema, No orthopnea, No palpitations, No problem reported, No see HPI Abdomen: No GI bleeding, No constipation, No diarrhea, No nausea, No pain, No problem reported, No see HPI, No vomiting Musculoskeletal: No calf pain, No joint pain, No muscle pain, No problem reported, No see HPI, No swelling Male : No dysuria, No hematuria, No incontinence, No nocturia more than once/ night, No problem reported, No see HPI, No sexual dysfunction, No slowing stream , No urinary frequency Neurologic: No balance problems, No memory loss, No numbness/tingling, No paralysis, No problem reported, No see HPI, No vertigo, No weakness Psychiatric: No anhedonism, No anxiety, No depression symptoms, No insomnia, No problem reported, No see HPI, No substance abuse Heme: No abnormal bleeding/bruising, No clotting problems, No night sweats, No problem reported, No see HPI, No swollen lymph nodes Endo: No excessive thirst, No excessive urination, No fatigue, No problem reported, No see HPI Skin: No bleeding, No color change, No itch, No new/changing skin lesions, No problem reported, No rash, No see HPI Medications Current Inpatient Medications Medications (Trade) Dose Ordered Sig/Rigoberto Route Start Time Stop Time Status Last Admin Dose Admin Acetaminophen (Tylenol Tab) 650 mg Q4H PRN PO 06/18/16 16:30 07/18/16 16:29 Ondansetron HCl 4 mg 4 mg Q6H PRN IV 06/18/16 16:30 07/18/16 16:29 Piperacillin Sod/ Tazobactam Sod/ Dextrose (Zosyn Iv/D5 100ml) 120 ml @ 30 mls/hr Q12@0200,1400 IV 06/19/16 02:00 06/28/16 21:59 06/22/16 02:03 30 MLS/HR Insulin Aspart (novoLOG ASPART) SLIDING SCALE G... ACHS SC 06/18/16 21:00 07/18/16 20:59 06/21/16 22:04 1 UNITS Calcium Acetate (Phoslo Cap) 2,001 mg TIDM PO 06/18/16 18:00 07/18/16 17:59 06/21/16 16:03 2,001 MG Escitalopram Oxalate (Lexapro Tab) 10 mg DAILY PO 06/19/16 09:00 07/19/16 08:59 06/21/16 08:14 10 MG Gabapentin (Neurontin Cap) 400 mg MoWeFr@2100 PO 06/18/16 21:00 07/18/16 20:59 06/20/16 21:15 400 MG Gabapentin (Neurontin Cap) 400 mg SuTuThSa@0900,1400,2200 PO 06/19/16 09:00 07/19/16 08:59 06/21/16 22:12 400 MG Latanoprost (Xalatan Oph Soln) 1 drops HS OPL 06/18/16 21:00 07/18/16 20:59 06/21/16 21:58 1 DROPS Levothyroxine Sodium (Synthroid Tab) 100 mcg DAILYBB PO 06/19/16 06:00 07/19/16 06:59 06/22/16 06:22 100 MCG Midodrine (Proamatine Tab) 2.5 mg MoWeFr@0900,1400 PO 06/20/16 09:00 07/20/16 08:59 06/20/16 13:49 2.5 MG Temazepam (Restoril Cap) 15 mg HS PRN PO 06/18/16 16:30 07/18/16 16:29 06/21/16 22:15 15 MG Apixaban (Eliquis Tab) 5 mg Q12 PO 06/18/16 21:00 07/18/16 20:59 Future hold 06/21/16 08:14 5 MG Lactobacillus Acidophilus (Floranex Tab) 4 tab QIDM PO 06/19/16 11:30 07/19/16 11:29 06/21/16 21:58 4 TAB Vancomycin HCl (Consult) 1 ea UD PRN N/A 06/19/16 09:45 07/19/16 09:44 Calcium Acetate (Phoslo Cap) 667 mg BID PRN PO 06/20/16 09:00 07/20/16 08:59 06/21/16 22:16 667 MG Piperacillin Sod/ Tazobactam Sod 1 ea 1 ea UD PRN N/A 06/20/16 09:30 07/20/16 09:29 Hydrocortisone Sodium Succinate 50 mg/Syringe 1 ml @ 4 mls/min Q8@0200,1000,1800 IV 06/21/16 17:15 07/21/16 17:14 06/22/16 02:00 4 MLS/MIN Norepinephrine Bitartrate/ Dextrose (Levophed Inj/ D5W 500ml) 508 ml @ 0 mls/hr Q0M PRN IV 06/21/16 18:55 07/21/16 18:54 Fentanyl Citrate (Fentanyl Inj) 25 mcg Q5M PRN IV 06/22/16 08:15 06/23/16 08:14 UNV Ephedrine Sulfate (EpHEDrine SULFATE INJ) 5 mg Q5M PRN IV 06/22/16 08:15 06/23/16 08:14 UNV Atropine Sulfate (Atropine Sulfate 0.1MG/Ml Inj) 0.5 mg Q1M PRN IV 06/22/16 08:15 06/23/16 08:14 UNV Objective Vital Signs Date Time Temp Pulse Resp B/P Pulse Ox O2 Delivery O2 Flow Rate FiO2 06/22/16 06:00 53 16 150/78 93 06/22/16 04:00 36.5 53 14 105/57 92 Room Air 06/22/16 04:00 93 Room Air 06/22/16 02:00 59 107/65 94 06/22/16 00:00 93 Room Air 06/22/16 00:00 36.5 58 17 100/65 93 Room Air 06/21/16 22:00 60 16 108/70 93 Room Air 06/21/16 20:28 62 15 101/61 92 Room Air 06/21/16 20:13 36.6 63 15 94/59 93 06/21/16 20:00 92 Room Air 06/21/16 19:58 65 15 89/56 91 Room Air 06/21/16 19:43 71 15 83/50 91 06/21/16 19:28 76 16 73/51 91 Room Air 06/21/16 19:13 76 18 69/48 90 06/21/16 18:58 81 15 70/46 90 Room Air 06/21/16 18:46 83 18 62/45 06/21/16 18:44 80 19 68/47 06/21/16 18:43 84 15 68/50 06/21/16 18:31 84 12 66/45 06/21/16 16:58 83 16 110/67 94 06/21/16 16:31 36.3 71 91/63 06/21/16 16:28 73 17 105/69 94 06/21/16 16:00 75 13 06/21/16 15:58 71 11 94/61 94 06/21/16 15:37 119 10 91/63 84 06/21/16 15:30 93 Room Air 06/21/16 15:28 68 9 84/55 94 06/21/16 15:15 71 88/56 06/21/16 15:13 71 7 88/56 94 06/21/16 15:00 70 90/56 06/21/16 15:00 70 10 95 06/21/16 14:58 70 11 90/56 06/21/16 14:45 70 91/62 06/21/16 14:43 74 17 91/62 06/21/16 14:30 73 88/52 06/21/16 14:28 73 12 88/52 06/21/16 14:15 73 80/52 06/21/16 14:13 73 9 80/52 06/21/16 14:00 76 21 93 06/21/16 14:00 74 75/53 06/21/16 13:45 75 11 94 06/21/16 13:45 74 72/51 06/21/16 13:43 75 18 72/51 06/21/16 13:30 75 77/47 06/21/16 13:30 76 10 92 06/21/16 13:28 75 12 77/47 92 06/21/16 13:15 75 11 92 06/21/16 13:15 74 78/48 06/21/16 13:13 74 11 78/48 06/21/16 13:00 74 76/47 06/21/16 13:00 74 11 92 06/21/16 13:00 74 76/47 06/21/16 12:58 73 12 76/47 91 06/21/16 12:45 66 11 92 06/21/16 12:45 62 74/56 06/21/16 12:44 90 12 74/56 92 06/21/16 12:32 61 10 94/56 96 06/21/16 12:31 62 94/56 06/21/16 12:30 63 10 94 06/21/16 12:30 93 Room Air 06/21/16 12:28 63 9 78/47 06/21/16 12:26 63 13 79/48 06/21/16 12:25 36.3 60 78/47 06/21/16 12:05 60 16 91/75 98 Room Air 06/21/16 11:50 65 16 89/45 98 Room Air Physical Exam General Appearance: no apparent distress Eyes: normal inspection, PERRL, EOMI ENT: normal ENT inspection, hearing grossly normal, TMs normal Neck: supple, no adenopathy, thyroid normal Respiratory/Chest: chest non-tender, lungs clear, normal breath sounds, no respiratory distress Cardiovascular: regular rate, rhythm, no edema, no gallop, no JVD, no murmur Abdomen: normal bowel sounds, non tender, soft, no organomegaly Extremities: normal range of motion, non-tender, normal inspection, no pedal edema Neurologic/Psychiatric: cytotechnologist II-XII nml as tested, no motor/sensory deficits, alert, normal mood/affect, oriented x 3, + pertinent finding Skin: normal color, warm/dry, no rash Laboratory Results Last 24 Hours Test 06/21/16 12:25 06/21/16 16:08 06/21/16 19:50 06/22/16 05:27 Bedside Glucose 79 mg/dl 66 mg/dl 169 mg/dl White Blood Count 4.96 K/uL Red Blood Count 3.92 M/uL Hemoglobin 12.0 g/dL Hematocrit 37.4 % Mean Corpuscular Volume 95.4 fL Mean Corpuscular Hemoglobin 30.6 pg Mean Corpuscular Hemoglobin Concent 32.1 g/dl Platelet Count 194 K/uL Mean Platelet Volume 11.4 fL Neutrophils (%) (Auto) 88.7 % Lymphocytes (%) (Auto) 7.1 % Monocytes (%) (Auto) 3.2 % Eosinophils (%) (Auto) 0.4 % Basophils (%) (Auto) 0.4 % Neutrophils # (Auto) 4.40 K/uL Lymphocytes # (Auto) 0.35 K/uL Monocytes # (Auto) 0.16 K/uL Eosinophils # (Auto) 0.02 K/uL Basophils # (Auto) 0.02 K/uL RDW Standard Deviation 52.8 fL RDW Coefficient of Variation 15.4 % Immature Granulocyte % (Auto) 0.2 % Immature Granulocyte # (Auto) 0.01 K/uL Sodium Level 138 mmol/L Potassium Level 4.1 mmol/L Chloride Level 101 mmol/L Carbon Dioxide Level 23 mmol/L Anion Gap 14.0 mmol/L Blood Urea Nitrogen 26 mg/dl Creatinine 5.10 mg/dl Est Creatinine Clear Calc Drug Dose 16.4 ml/min Estimated GFR () 13.4 Estimated GFR (Non- 11.5 BUN/Creatinine Ratio 5.2 Random Glucose 136 mg/dl Calcium Level 8.2 mg/dl Magnesium Level 2.2 mg/dl Total Bilirubin 0.5 mg/dl Aspartate Amino Transf (AST/SGOT) 14 U/L Alanine Aminotransferase (ALT/SGPT) 18 U/L Alkaline Phosphatase 101 U/L Total Protein 7.0 gm/dl Albumin 3.2 gm/dl Globulin 3.8 gm/dl Albumin/Globulin Ratio 0.8 Random Vancomycin Level 22.7 mcg/ml Test 06/22/16 06:19 Bedside Glucose 122 mg/dl Assessment and Plan This is a 60 yo m from [facility] with a h/o ESRD (followed by Dr Buchanan), DMII , h/o MRSA and C diff and post ME x 2 that presented to us in the ED with Palpitations yesterday during dialysis he developed rapid junctional rhythm which actually spontaneously converted also had systolic hypotension between 70-80. Assessment/plan: Hypotension, on admission, also yesterday when they removed 500cc on dialysis unlikely Septic shock , all cultures are negative except 1/4 CAN staph which likely a contaminate, currently off levophed cortisol level is 8.85 in the circumstances of his very low blood pressure, it might indicate relative adrenal insufficiency ,started hydrocortisone yesterday and the pressure is good since then multiple potential sources, HD cath, PD cath, S/P removal of his peritoneal dialysis catheter today will F/U Blood Cx continue Zosyn/vanco SVT currently normal sinus consult microbiology lab assistant appreciated, S/P electrophysiology study and ablation Patient has had an echo in December 2015 - EF 55-60% LV normal in size and motion - Grade I diastolic failure ESRD requiring dialysis consult special needs tutor was appreciated H/O C Diff will DC levofloxacin Add lactinex for C diff prophylaxis DMII SSI DVT prophylaxis already on AC Hypothyroidism TSH was slightly elevated continue synthroid same dose Hx of A fib continue AC, can be transferred to telemetry when ok with critical care
[2016-06-22] MEDS: CALCIUM ACETATE 667MG GELCAP PO SCH ×3 (09:36→16:49)
[2016-06-22] MEDS: ESCITALOPRAM OXALATE 10 MG TAB PO SCH (09:36)
[2016-06-22] MEDS: MIDODRINE 2.5 MG TAB PO SCH ×2 (09:37→14:49)
[2016-06-22] MEDS: LACTOBACILLUS ACIDOPHILUS (FLORANEX) TAB PO SCH ×4 (09:37→21:05)
--- NOTE | 2016-06-22 10:11 | Nephrology Progress Note ---
Nephrology Progress Note Date of Service: Jun 22, 2016. Subjective Patient is a 60-year-old male with ESRD who presented to the ED with tachycardia arrhythmia and hypotension. Patient has just returned from OR for PD cath removal. He states that he is feeling good and is hungry. No SOB or chest pain, cramping, nausea, or vomiting. Objective Date Time Temp Pulse Resp B/P Pulse Ox O2 Delivery O2 Flow Rate FiO2 06/22/16 09:15 36.6 56 13 102/66 95 Room Air 06/22/16 09:05 57 15 108/65 94 Room Air 06/22/16 08:55 57 12 111/75 95 Room Air 06/22/16 08:45 36.3 58 12 110/61 92 Room Air 06/22/16 06:00 53 16 150/78 93 06/22/16 04:00 36.5 53 14 105/57 92 Room Air 06/22/16 04:00 93 Room Air 06/22/16 02:00 59 107/65 94 06/22/16 00:00 93 Room Air 06/22/16 00:00 36.5 58 17 100/65 93 Room Air 06/21/16 22:00 60 16 108/70 93 Room Air 06/21/16 20:28 62 15 101/61 92 Room Air 06/21/16 20:13 36.6 63 15 94/59 93 06/21/16 20:00 92 Room Air 06/21/16 19:58 65 15 89/56 91 Room Air 06/21/16 19:43 71 15 83/50 91 06/21/16 19:28 76 16 73/51 91 Room Air 06/21/16 19:13 76 18 69/48 90 06/21/16 18:58 81 15 70/46 90 Room Air 06/21/16 18:46 83 18 62/45 06/21/16 18:44 80 19 68/47 06/21/16 18:43 84 15 68/50 06/21/16 18:31 84 12 66/45 06/21/16 16:58 83 16 110/67 94 06/21/16 16:31 36.3 71 91/63 06/21/16 16:28 73 17 105/69 94 06/21/16 16:00 75 13 06/21/16 15:58 71 11 94/61 94 06/21/16 15:37 119 10 91/63 84 06/21/16 15:30 93 Room Air 06/21/16 15:28 68 9 84/55 94 06/21/16 15:15 71 88/56 06/21/16 15:13 71 7 88/56 94 06/21/16 15:00 70 90/56 06/21/16 15:00 70 10 95 06/21/16 14:58 70 11 90/56 06/21/16 14:45 70 91/62 06/21/16 14:43 74 17 91/62 06/21/16 14:30 73 88/52 06/21/16 14:28 73 12 88/52 06/21/16 14:15 73 80/52 06/21/16 14:13 73 9 80/52 06/21/16 14:00 76 21 93 06/21/16 14:00 74 75/53 06/21/16 13:58 76 13 75/53 95 06/21/16 13:45 75 11 94 06/21/16 13:45 75 11 94 06/21/16 13:45 74 72/51 06/21/16 13:43 75 18 72/51 06/21/16 13:43 75 18 72/51 06/21/16 13:30 76 10 92 06/21/16 13:30 75 77/47 06/21/16 13:30 76 10 92 06/21/16 13:28 75 12 77/47 92 06/21/16 13:28 75 12 77/47 92 06/21/16 13:15 75 11 92 06/21/16 13:15 75 11 92 06/21/16 13:15 74 78/48 06/21/16 13:13 74 11 78/48 06/21/16 13:13 74 11 78/48 06/21/16 13:00 74 11 92 06/21/16 13:00 74 76/47 06/21/16 13:00 74 11 92 06/21/16 13:00 74 76/47 06/21/16 12:58 73 12 76/47 91 06/21/16 12:58 73 12 76/47 91 06/21/16 12:45 66 11 92 06/21/16 12:45 66 11 92 06/21/16 12:45 62 74/56 06/21/16 12:44 90 12 74/56 92 06/21/16 12:44 90 12 74/56 92 06/21/16 12:32 61 10 94/56 96 06/21/16 12:32 61 10 94/56 96 06/21/16 12:31 62 94/56 06/21/16 12:30 63 10 94 06/21/16 12:30 63 10 94 06/21/16 12:30 93 Room Air 06/21/16 12:28 63 9 78/47 06/21/16 12:28 63 9 78/47 06/21/16 12:26 63 13 79/48 06/21/16 12:26 63 13 79/48 06/21/16 12:25 36.3 60 78/47 06/21/16 12:05 60 16 91/75 98 Room Air 06/21/16 11:50 65 16 89/45 98 Room Air Physical Exam: GENERAL: Awake, alert, oriented x3. EYES: No scleral icterus. ENT: Moist mucous membranes. NECK: Supple. PULMONARY: Clear to auscultation. CARDIAC: sinus rhythm. no murmers. no longer bradycardic. ABDOMEN: +BS soft, nontender. surgical dressing from PD cath removal clean, dry , and intact EXTREMITIES: No significant clubbing, cyanosis or edema. NEUROLOGIC: Nonfocal. DERMATOLOGIC: No rash or ulcers noted. Left BKA. Current Inpatient Medications Medications (Trade) Dose Ordered Sig/Rigoberto Route Start Time Stop Time Status Last Admin Dose Admin Acetaminophen (Tylenol Tab) 650 mg Q4H PRN PO 06/18/16 16:30 07/18/16 16:29 Ondansetron HCl 4 mg 4 mg Q6H PRN IV 06/18/16 16:30 07/18/16 16:29 Piperacillin Sod/ Tazobactam Sod/ Dextrose (Zosyn Iv/D5 100ml) 120 ml @ 30 mls/hr Q12@0200,1400 IV 06/19/16 02:00 06/28/16 21:59 06/22/16 02:03 30 MLS/HR Insulin Aspart (novoLOG ASPART) SLIDING SCALE G... ACHS SC 06/18/16 21:00 07/18/16 20:59 06/21/16 22:04 1 UNITS Calcium Acetate (Phoslo Cap) 2,001 mg TIDM PO 06/18/16 18:00 07/18/16 17:59 06/22/16 09:36 2,001 MG Escitalopram Oxalate (Lexapro Tab) 10 mg DAILY PO 06/19/16 09:00 07/19/16 08:59 06/22/16 09:36 10 MG Gabapentin (Neurontin Cap) 400 mg MoWeFr@2100 PO 06/18/16 21:00 07/18/16 20:59 06/20/16 21:15 400 MG Gabapentin (Neurontin Cap) 400 mg SuTuThSa@0900,1400,2200 PO 06/19/16 09:00 07/19/16 08:59 06/21/16 22:12 400 MG Latanoprost (Xalatan Oph Soln) 1 drops HS OPL 06/18/16 21:00 07/18/16 20:59 06/21/16 21:58 1 DROPS Levothyroxine Sodium (Synthroid Tab) 100 mcg DAILYBB PO 06/19/16 06:00 07/19/16 06:59 06/22/16 06:22 100 MCG Midodrine (Proamatine Tab) 2.5 mg MoWeFr@0900,1400 PO 06/20/16 09:00 07/20/16 08:59 06/22/16 09:37 2.5 MG Temazepam (Restoril Cap) 15 mg HS PRN PO 06/18/16 16:30 07/18/16 16:29 06/21/16 22:15 15 MG Apixaban (Eliquis Tab) 5 mg Q12 PO 06/18/16 21:00 07/18/16 20:59 Future hold 06/21/16 08:14 5 MG Lactobacillus Acidophilus (Floranex Tab) 4 tab QIDM PO 06/19/16 11:30 07/19/16 11:29 06/22/16 09:37 4 TAB Vancomycin HCl (Consult) 1 ea UD PRN N/A 06/19/16 09:45 07/19/16 09:44 Calcium Acetate (Phoslo Cap) 667 mg BID PRN PO 06/20/16 09:00 07/20/16 08:59 06/21/16 22:16 667 MG Piperacillin Sod/ Tazobactam Sod 1 ea 1 ea UD PRN N/A 06/20/16 09:30 07/20/16 09:29 Hydrocortisone Sodium Succinate 50 mg/Syringe 1 ml @ 4 mls/min Q8@0200,1000,1800 IV 06/21/16 17:15 07/21/16 17:14 06/22/16 09:37 4 MLS/MIN Norepinephrine Bitartrate/ Dextrose (Levophed Inj/ D5W 500ml) 508 ml @ 0 mls/hr Q0M PRN IV 06/21/16 18:55 07/21/16 18:54 Fentanyl Citrate (Fentanyl Inj) 25 mcg Q5M PRN IV 06/22/16 08:15 06/22/16 13:15 Ephedrine Sulfate (EpHEDrine SULFATE INJ) 5 mg Q5M PRN IV 06/22/16 08:15 06/22/16 13:15 Atropine Sulfate (Atropine Sulfate 0.1MG/Ml Inj) 0.5 mg Q1M PRN IV 06/22/16 08:15 06/22/16 13:15 Pantoprazole Sodium (Protonix Tab) 40 mg QAM PO 06/22/16 14:00 07/22/16 13:59 Last 24 Hours Test 06/21/16 12:25 06/21/16 16:08 06/21/16 19:50 06/22/16 05:27 Bedside Glucose 79 mg/dl 66 mg/dl 169 mg/dl White Blood Count 4.96 K/uL Red Blood Count 3.92 M/uL Hemoglobin 12.0 g/dL Hematocrit 37.4 % Mean Corpuscular Volume 95.4 fL Mean Corpuscular Hemoglobin 30.6 pg Mean Corpuscular Hemoglobin Concent 32.1 g/dl Platelet Count 194 K/uL Mean Platelet Volume 11.4 fL Neutrophils (%) (Auto) 88.7 % Lymphocytes (%) (Auto) 7.1 % Monocytes (%) (Auto) 3.2 % Eosinophils (%) (Auto) 0.4 % Basophils (%) (Auto) 0.4 % Neutrophils # (Auto) 4.40 K/uL Lymphocytes # (Auto) 0.35 K/uL Monocytes # (Auto) 0.16 K/uL Eosinophils # (Auto) 0.02 K/uL Basophils # (Auto) 0.02 K/uL RDW Standard Deviation 52.8 fL RDW Coefficient of Variation 15.4 % Immature Granulocyte % (Auto) 0.2 % Immature Granulocyte # (Auto) 0.01 K/uL Sodium Level 138 mmol/L Potassium Level 4.1 mmol/L Chloride Level 101 mmol/L Carbon Dioxide Level 23 mmol/L Anion Gap 14.0 mmol/L Blood Urea Nitrogen 26 mg/dl Creatinine 5.10 mg/dl Est Creatinine Clear Calc Drug Dose 16.4 ml/min Estimated GFR () 13.4 Estimated GFR (Non- 11.5 BUN/Creatinine Ratio 5.2 Random Glucose 136 mg/dl Calcium Level 8.2 mg/dl Magnesium Level 2.2 mg/dl Total Bilirubin 0.5 mg/dl Aspartate Amino Transf (AST/SGOT) 14 U/L Alanine Aminotransferase (ALT/SGPT) 18 U/L Alkaline Phosphatase 101 U/L Total Protein 7.0 gm/dl Albumin 3.2 gm/dl Globulin 3.8 gm/dl Albumin/Globulin Ratio 0.8 Random Vancomycin Level 22.7 mcg/ml Test 06/22/16 06:19 Bedside Glucose 122 mg/dl Other Studies: 06/20/16 06/21/16 06/22/16 08:00 08:00 08:00 Intake Total 2267 ml 1921 ml 930 ml Output Total 566 ml Balance 2267 ml 1921 ml 364 ml Assessment & Plan ESRD-Patient tolerated dialysis well yesterday. continues to have asymptomatic hypotension but overall BP is improving. Potassium 4.1. volume status adequate. Patient is normally a M/W/F patient and may wait until Saturday to restart dialysis. will depend on potassium and clinical condition tomorrow. to reassess tomorrow morning. Anemia of renal failure. Hemoglobin level is improved at 12.0 and continue with Procrit on dialysis PRN. No need for transfusion at this time. Renal osteodystrophy: Continue with phosphate binders with meals and snacks as prescribed and will follow phosphorus level intermittently. Access. Peritoneal Dialysis Catheter removed. Patient is tunneled line dependent. will continue with HD as outpt. This patient was seen and treated with direct collaboration with Dr. Buchanan. Thank you for the opportunity to participate in this patient's care. Appreciate the Consult. ATTENDING NOTE: I performed a history and physical examination of the patient, including specifically on history- pt clinically appears back to baseline. in outpt unit- systolic bp may at times be in the 80s to 90s and mentating well-so not unusual to have low bp, on physical exam-cta, and my impression and plan are ESRD-will assess tomorrow but likely will be able to wait till saturday for dialysis. I have discussed the patient's management with Katie Dodge PA-C, Please refer to above note for the documented findings and plan of care. Marky Oncedwige DO
--- NOTE | 2016-06-22 11:09 | Cardiology Follow-Up ---
Subjective Date of Service: Jun 22, 2016. Pt evaluation today including: conversation w/ patient, physical exam, lab review, review of studies, review of inpatient medication list History of Present Illness This is a very pleasant 60-year-old gentleman who has a history of end-stage kidney disease for which he is on dialysis. He has a history of diabetes mellitus, he does have nonobstructive coronary artery disease identified at catheterization 2009. He had an admission for MRSA bacteremia 12/28/2015 and developed supraventricular tachycardia. 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 It appears from monitoring that he had several episodes terminated with adenosine. He was started on amiodarone during that admission and remains on it. He was also started on Eliquis I believe, I don't know the specific indications. This admission was prompted by hypotension and tachycardia identified on hemodialysis, his blood pressure was in the 60-80 mmHg range during the emergency room. He was started on pressors and his arrhythmia terminated spontaneously to sinus rhythm. He remained hypotensive however after termination of the arrhythmia but apparently felt better. It sounds as though he is aware of the arrhythmia historically but it doesn't typically bother him very much, he describes feeling his heart racing (which he also noted during dialysis previous to this admission) but this is relatively infrequent, perhaps twice a year, and he thinks only lasts several minutes. Clearly the episode that prompted this admission and during his last admission was much longer. With the likelihood that this episode contributed to his presentation and hypotension and medications probably not being sufficient to control his arrhythmia we have discussed electrophysiologic study and ablation. Today he feels well and has no complaints and has not had recurrent arrhythmias. We will plan on electrophysiologic study and ablation today. Social History Smoking Status: Never Smoker History of Alcohol Use: Yes (Twice/year) Review of Systems Respiratory: No cough, No dyspnea at rest, No dyspnea on exertion, No hemoptysis, No problem reported, No see HPI, No shortness of breath, No sputum, No wheezing Cardiac: No PND, No chest pain, No claudication, No edema, No orthopnea, No palpitations, No problem reported, No see HPI Medications No cardiovascular Objective Vital Signs Past 12 Hours Date Time Temp Pulse Resp B/P Pulse Ox O2 Delivery O2 Flow Rate FiO2 06/22/16 09:15 36.6 56 13 102/66 95 Room Air 06/22/16 09:05 57 15 108/65 94 Room Air 06/22/16 08:55 57 12 111/75 95 Room Air 06/22/16 08:45 36.3 58 12 110/61 92 Room Air 06/22/16 06:00 53 16 150/78 93 06/22/16 04:00 36.5 53 14 105/57 92 Room Air 06/22/16 04:00 93 Room Air 06/22/16 02:00 59 107/65 94 06/22/16 00:00 93 Room Air 06/22/16 00:00 36.5 58 17 100/65 93 Room Air Last Recorded Weight-Kilograms: 84.000 Intake & Output 8-Hour Column 06/21/16 06/22/16 06/22/16 16:00 00:00 08:00 Intake Total 100 ml 710 ml 120 ml Output Total 566 ml Balance 100 ml 144 ml 120 ml 24-Hour Column 06/22/16 08:00 Intake Total 930 ml Output Total 566 ml Balance 364 ml Physical Exam Constitutional: General Apperance: heathly-appearing Level of Distress: NAD Lungs: Respiratory effort: no dyspnea, good air movement Auscultation: breath sounds normal, no wheezing Cardiovascular: Heart Auscultation: RRR, no murmurs, no rubs, no gallops Peripheral Pulses: Bruits: none appreciated Extremities: no edema Groin sites are clean and dry without hematoma Data Laboratory Results: Last 24 Hours Test 06/21/16 12:25 06/21/16 16:08 06/21/16 19:50 06/22/16 05:27 Bedside Glucose 79 mg/dl 66 mg/dl 169 mg/dl White Blood Count 4.96 K/uL Red Blood Count 3.92 M/uL Hemoglobin 12.0 g/dL Hematocrit 37.4 % Mean Corpuscular Volume 95.4 fL Mean Corpuscular Hemoglobin 30.6 pg Mean Corpuscular Hemoglobin Concent 32.1 g/dl Platelet Count 194 K/uL Mean Platelet Volume 11.4 fL Neutrophils (%) (Auto) 88.7 % Lymphocytes (%) (Auto) 7.1 % Monocytes (%) (Auto) 3.2 % Eosinophils (%) (Auto) 0.4 % Basophils (%) (Auto) 0.4 % Neutrophils # (Auto) 4.40 K/uL Lymphocytes # (Auto) 0.35 K/uL Monocytes # (Auto) 0.16 K/uL Eosinophils # (Auto) 0.02 K/uL Basophils # (Auto) 0.02 K/uL RDW Standard Deviation 52.8 fL RDW Coefficient of Variation 15.4 % Immature Granulocyte % (Auto) 0.2 % Immature Granulocyte # (Auto) 0.01 K/uL Sodium Level 138 mmol/L Potassium Level 4.1 mmol/L Chloride Level 101 mmol/L Carbon Dioxide Level 23 mmol/L Anion Gap 14.0 mmol/L Blood Urea Nitrogen 26 mg/dl Creatinine 5.10 mg/dl Est Creatinine Clear Calc Drug Dose 16.4 ml/min Estimated GFR () 13.4 Estimated GFR (Non- 11.5 BUN/Creatinine Ratio 5.2 Random Glucose 136 mg/dl Calcium Level 8.2 mg/dl Magnesium Level 2.2 mg/dl Total Bilirubin 0.5 mg/dl Aspartate Amino Transf (AST/SGOT) 14 U/L Alanine Aminotransferase (ALT/SGPT) 18 U/L Alkaline Phosphatase 101 U/L Total Protein 7.0 gm/dl Albumin 3.2 gm/dl Globulin 3.8 gm/dl Albumin/Globulin Ratio 0.8 Random Vancomycin Level 22.7 mcg/ml Test 06/22/16 06:19 Bedside Glucose 122 mg/dl Telemetry reviewed: There was a brief episode of a somewhat rapid heart rate shortly after ablation, from 1700 to 1800 yesterday. The HR was about 120 max, somewhat irregular Assessment and Plan #1. SVT: He has a well-defined supraventricular tachycardia which has been recorded on 12 leads both in December 2015 and his current admission. Both appeared to be typical AV node reentry, the former was 140 bpm, currently 120 bpm. He was started on amiodarone during his last hospitalization which probably explains the decrease in rate but it did not eliminate the arrhythmia. He did seem to have hemodynamic consequence although he probably has other causes for hypotension as well. I suspect the SVT contributed. He did have a very slight enzyme rise presumably due to demand ischemia and he was hypotensive. It is unlikely that we would be able to eliminate the arrhythmia with medical therapy , therefore we performed electrophysiologic study and ablation yesterday, it turned out to be an atrial tachycardia with the P wave presumably right on the peaked T waves so was not visible on the 12-lead electrocardiogram. Although the AV pippa function was not normal there appeared to be no evidence for dual pathways for inducible AV node reentry and no bypass tracts were identified. The ablation was moderately successful but he seemed to have a lot of scar in his right atrium preceding the ablation. He may have some residual atrial arrhythmias but the rate seems to be slow. He had a little bit of an arrhythmia immediately after ablation, but the rate was controlled and this may be related to the procedure not to his underlying arrhythmia which was very irregular and sustained. I would watch him off of amiodarone for now and see whether he has recurrence. If he does we can consider repeat ablation. #2. Anticoagulant therapy: He was on Eliquis for a DVT, that is currently on hold. #3. Hypotension on admission: He was significantly hypotensive and required pressors, this may have been aggravated by the SVT however I don't believe that is the sole cause as his blood pressure should've normalized immediately with termination of the arrhythmia. His initial hypotension was probably triggered by some other cause and aggravated by the SVT, he may have autonomic dysfunction and he is admitted during which seems to be helping somewhat but he remains somewhat hypotensive but is asymptomatic with it currently. Thank you for allowing me to participate in his care.
--- NOTE | 2016-06-22 11:38 | Critical Care Progress Note ---
Critical Care Progress Note Date of Service Jun 22, 2016. Attending Dr. Costa Subjective Patient had a hypotensive episode last night Because of previous use of levophed patient was upgraded to ICU status He responded well to albumin and stress dose of hydrocortisone He is post ablation and no cardiac event over night ROS negative aside from above Objective General: not in acute distress. laying comfortably in bed Skin: no rashes noted, no suspicious lesions, no areas of inflammations/ lacerations/ erythema noted CVS: S1/ S2 noted, RRR, no rubs/ murmurs noted, no cyanosis RVS: Clear throughout bilaterally, not in acute respiratory distress, no wheezing/ rales/ crackles noted ENT: poor dentition Neck: inspection WNL, full ROM of neck, central line in left IJ ABD: BSx4, no pain/ tenderness on palpation, no organomegaly,no distention noted MSK: inspection of all limbs WNL except for a noted amputation of the left LE, no swelling/ pain on palpation of joints, requires assistance for ambulation NVS: a+O x3, mood stable Lymph: No lymphadenopathy palpable Assessment & Plan 1. Sepsis with positive blood culture x 1 for Staph coag neg 2. Undifferentiated Hypotension 3. Junctional arrhythmia s/p ablation 4. ESRD requiring dialysis 5. H/O C Diff 6. DMII 7. Adrenal Insufficiency CVS - Patient has had an echo in December 2015 - EF 55-60% - LV normal in size and motion - Grade I diastolic failure - No significant stenosis or regurg - Levophed was not needed for hypotensive episode -Albumin x 1 and Hydrocortisone 100 mg q 8 hours - hypotensive most likely secondary to adrenal insuff considering the low random cortisol which should be > in a stress response - consider slow wean - CVS- appreciate input - ablation completed GI - Diabetic diet - protonix daily- h/o gastric bleeding Renal - Nephrology consulted - dialysis yesterday - recheck daily BMP - strict I&O - peritoneal dialysis port was removed today by Dr Mcdonnell ID - blood cultures were positive x 1 for staph coag neg - most likely contaminate - cont zosyn and vanc (+MRSA) - reassess after 48 hour repeat bld cx received - empiric Tamiflu - d/c - consider a very short course considering his history of C Diff Endo - Insulin aspart DVT Prophylaxis - Eliquis Full code Resident Physician Supervision Note: Dr. Newman was resident physician during care of patient. I separately evaluated patient and did history and exam. I discussed the case with the resident and generally agree with the findings and plan. Patient was transferred back to the ICU service for an episode of hypotension following dialysis. Should be noted that the patient normally takes Midrin drain prior to dialysis, he did not receive that prior to the episode at dialysis today. During my evaluation the patient was asymptomatic, administered a repeat dose of 50 mg of hydrocortisone, gave what I believe was 25 mg of IV albumin. Patient's blood pressure normalized and remained symptom free for the rest of the day. He went to the operating room for peritoneal dialysis catheter removal, which was uncomplicated. At this point the patient is able to be downgraded out of the ICU. Documented By: Everton Costa DO Data Medications: Current Inpatient Medications Medications (Trade) Dose Ordered Sig/Rigoberto Route Start Time Stop Time Status Last Admin Dose Admin Acetaminophen (Tylenol Tab) 650 mg Q4H PRN PO 06/18/16 16:30 07/18/16 16:29 Ondansetron HCl 4 mg 4 mg Q6H PRN IV 06/18/16 16:30 07/18/16 16:29 Piperacillin Sod/ Tazobactam Sod/ Dextrose (Zosyn Iv/D5 100ml) 120 ml @ 30 mls/hr Q12@0200,1400 IV 06/19/16 02:00 06/28/16 21:59 06/22/16 02:03 30 MLS/HR Insulin Aspart (novoLOG ASPART) SLIDING SCALE G... ACHS SC 06/18/16 21:00 07/18/16 20:59 06/21/16 22:04 1 UNITS Calcium Acetate (Phoslo Cap) 2,001 mg TIDM PO 06/18/16 18:00 07/18/16 17:59 06/22/16 09:36 2,001 MG Escitalopram Oxalate (Lexapro Tab) 10 mg DAILY PO 06/19/16 09:00 07/19/16 08:59 06/22/16 09:36 10 MG Gabapentin (Neurontin Cap) 400 mg MoWeFr@2100 PO 06/18/16 21:00 07/18/16 20:59 06/20/16 21:15 400 MG Gabapentin (Neurontin Cap) 400 mg SuTuThSa@0900,1400,2200 PO 06/19/16 09:00 07/19/16 08:59 06/21/16 22:12 400 MG Latanoprost (Xalatan Oph Soln) 1 drops HS OPL 06/18/16 21:00 07/18/16 20:59 06/21/16 21:58 1 DROPS Levothyroxine Sodium (Synthroid Tab) 100 mcg DAILYBB PO 06/19/16 06:00 07/19/16 06:59 06/22/16 06:22 100 MCG Midodrine (Proamatine Tab) 2.5 mg MoWeFr@0900,1400 PO 06/20/16 09:00 07/20/16 08:59 06/22/16 09:37 2.5 MG Temazepam (Restoril Cap) 15 mg HS PRN PO 06/18/16 16:30 07/18/16 16:29 06/21/16 22:15 15 MG Apixaban (Eliquis Tab) 5 mg Q12 PO 06/18/16 21:00 07/18/16 20:59 Future hold 06/21/16 08:14 5 MG Lactobacillus Acidophilus (Floranex Tab) 4 tab QIDM PO 06/19/16 11:30 07/19/16 11:29 06/22/16 09:37 4 TAB Vancomycin HCl (Consult) 1 ea UD PRN N/A 06/19/16 09:45 07/19/16 09:44 Calcium Acetate (Phoslo Cap) 667 mg BID PRN PO 06/20/16 09:00 07/20/16 08:59 06/21/16 22:16 667 MG Piperacillin Sod/ Tazobactam Sod 1 ea 1 ea UD PRN N/A 06/20/16 09:30 07/20/16 09:29 Hydrocortisone Sodium Succinate 50 mg/Syringe 1 ml @ 4 mls/min Q8@0200,1000,1800 IV 06/21/16 17:15 07/21/16 17:14 06/22/16 09:37 4 MLS/MIN Norepinephrine Bitartrate/ Dextrose (Levophed Inj/ D5W 500ml) 508 ml @ 0 mls/hr Q0M PRN IV 06/21/16 18:55 07/21/16 18:54 Fentanyl Citrate (Fentanyl Inj) 25 mcg Q5M PRN IV 06/22/16 08:15 06/22/16 13:15 Ephedrine Sulfate (EpHEDrine SULFATE INJ) 5 mg Q5M PRN IV 06/22/16 08:15 06/22/16 13:15 Atropine Sulfate (Atropine Sulfate 0.1MG/Ml Inj) 0.5 mg Q1M PRN IV 06/22/16 08:15 06/22/16 13:15 Pantoprazole Sodium (Protonix Tab) 40 mg QAM PO 06/22/16 14:00 07/22/16 13:59 I & O: 24-Hour Column 06/22/16 08:00 Intake Total 930 ml Output Total 566 ml Balance 364 ml Vital Signs: Date Time Temp Pulse Resp B/P Pulse Ox O2 Delivery O2 Flow Rate FiO2 06/22/16 10:00 62 14 132/77 94 Room Air 06/22/16 09:15 36.6 56 13 102/66 95 Room Air 06/22/16 09:05 57 15 108/65 94 Room Air 06/22/16 09:00 Room Air 06/22/16 08:55 57 12 111/75 95 Room Air 06/22/16 08:45 36.3 58 12 110/61 92 Room Air 06/22/16 08:00 58 16 122/70 94 Room Air 06/22/16 06:00 53 16 150/78 93 06/22/16 04:00 36.5 53 14 105/57 92 Room Air 06/22/16 04:00 93 Room Air 06/22/16 02:00 59 107/65 94 06/22/16 00:00 93 Room Air 06/22/16 00:00 36.5 58 17 100/65 93 Room Air 06/21/16 22:00 60 16 108/70 93 Room Air 06/21/16 20:28 62 15 101/61 92 Room Air 06/21/16 20:13 36.6 63 15 94/59 93 06/21/16 20:00 92 Room Air 06/21/16 19:58 65 15 89/56 91 Room Air 06/21/16 19:43 71 15 83/50 91 06/21/16 19:28 76 16 73/51 91 Room Air 06/21/16 19:13 76 18 69/48 90 06/21/16 18:58 81 15 70/46 90 Room Air 06/21/16 18:46 83 18 62/45 06/21/16 18:44 80 19 68/47 06/21/16 18:43 84 15 68/50 06/21/16 18:31 84 12 66/45 06/21/16 16:58 83 16 110/67 94 06/21/16 16:31 36.3 71 91/63 06/21/16 16:28 73 17 105/69 94 06/21/16 16:00 75 13 06/21/16 15:58 71 11 94/61 94 06/21/16 15:37 119 10 91/63 84 06/21/16 15:30 93 Room Air 06/21/16 15:28 68 9 84/55 94 06/21/16 15:15 71 88/56 06/21/16 15:13 71 7 88/56 94 06/21/16 15:00 70 90/56 06/21/16 15:00 70 10 95 06/21/16 14:58 70 11 90/56 06/21/16 14:45 70 91/62 06/21/16 14:43 74 17 91/62 06/21/16 14:30 73 88/52 06/21/16 14:28 73 12 88/52 06/21/16 14:15 73 80/52 06/21/16 14:13 73 9 80/52 06/21/16 14:00 76 21 93 06/21/16 14:00 74 75/53 06/21/16 13:58 76 13 75/53 95 06/21/16 13:45 75 11 94 06/21/16 13:45 75 11 94 06/21/16 13:45 74 72/51 06/21/16 13:43 75 18 72/51 06/21/16 13:43 75 18 72/51 06/21/16 13:30 76 10 92 06/21/16 13:30 75 77/47 06/21/16 13:30 76 10 92 06/21/16 13:28 75 12 77/47 92 06/21/16 13:28 75 12 77/47 92 06/21/16 13:15 75 11 92 06/21/16 13:15 75 11 92 06/21/16 13:15 74 78/48 06/21/16 13:13 74 11 78/48 06/21/16 13:13 74 11 78/48 06/21/16 13:00 74 11 92 06/21/16 13:00 74 76/47 06/21/16 13:00 74 11 92 06/21/16 13:00 74 76/47 06/21/16 12:58 73 12 76/47 91 06/21/16 12:58 73 12 76/47 91 06/21/16 12:45 66 11 92 06/21/16 12:45 66 11 92 06/21/16 12:45 62 74/56 06/21/16 12:44 90 12 74/56 92 06/21/16 12:44 90 12 74/56 92 06/21/16 12:32 61 10 94/56 96 06/21/16 12:32 61 10 94/56 96 06/21/16 12:31 62 94/56 06/21/16 12:30 63 10 94 06/21/16 12:30 63 10 94 06/21/16 12:30 93 Room Air 06/21/16 12:28 63 9 78/47 06/21/16 12:28 63 9 78/47 06/21/16 12:26 63 13 79/48 06/21/16 12:26 63 13 79/48 06/21/16 12:25 36.3 60 78/47 06/21/16 12:05 60 16 91/75 98 Room Air 06/21/16 11:50 65 16 89/45 98 Room Air Laboratory Results: Last 24 Hours Test 06/21/16 12:25 06/21/16 16:08 06/21/16 19:50 06/22/16 05:27 Bedside Glucose 79 mg/dl 66 mg/dl 169 mg/dl White Blood Count 4.96 K/uL Red Blood Count 3.92 M/uL Hemoglobin 12.0 g/dL Hematocrit 37.4 % Mean Corpuscular Volume 95.4 fL Mean Corpuscular Hemoglobin 30.6 pg Mean Corpuscular Hemoglobin Concent 32.1 g/dl Platelet Count 194 K/uL Mean Platelet Volume 11.4 fL Neutrophils (%) (Auto) 88.7 % Lymphocytes (%) (Auto) 7.1 % Monocytes (%) (Auto) 3.2 % Eosinophils (%) (Auto) 0.4 % Basophils (%) (Auto) 0.4 % Neutrophils # (Auto) 4.40 K/uL Lymphocytes # (Auto) 0.35 K/uL Monocytes # (Auto) 0.16 K/uL Eosinophils # (Auto) 0.02 K/uL Basophils # (Auto) 0.02 K/uL RDW Standard Deviation 52.8 fL RDW Coefficient of Variation 15.4 % Immature Granulocyte % (Auto) 0.2 % Immature Granulocyte # (Auto) 0.01 K/uL Sodium Level 138 mmol/L Potassium Level 4.1 mmol/L Chloride Level 101 mmol/L Carbon Dioxide Level 23 mmol/L Anion Gap 14.0 mmol/L Blood Urea Nitrogen 26 mg/dl Creatinine 5.10 mg/dl Est Creatinine Clear Calc Drug Dose 16.4 ml/min Estimated GFR () 13.4 Estimated GFR (Non- 11.5 BUN/Creatinine Ratio 5.2 Random Glucose 136 mg/dl Calcium Level 8.2 mg/dl Magnesium Level 2.2 mg/dl Total Bilirubin 0.5 mg/dl Aspartate Amino Transf (AST/SGOT) 14 U/L Alanine Aminotransferase (ALT/SGPT) 18 U/L Alkaline Phosphatase 101 U/L Total Protein 7.0 gm/dl Albumin 3.2 gm/dl Globulin 3.8 gm/dl Albumin/Globulin Ratio 0.8 Random Vancomycin Level 22.7 mcg/ml Test 06/22/16 06:19 Bedside Glucose 122 mg/dl
--- NOTE | 2016-06-22 12:47 | Pharmacy Progress Note ---
Pharmacy Antibiotic Prog Note Date of Service: Jun 22, 2016. Subjective: The patient is currently receiving: * Vancomycin IV - dose based upon random AM vancomycin levels * Zosyn 4.5gm IV extended infusion over 4 hrs Q 8 hours Today is day # 5 IV Zosyn and # 4 IV Vancomycin Objective: Height (Feet): 5 Height (Inches): 7.00 Weight (Kilograms): 84.000 Levels: Item Value Date Time Random Vancomycin Level 22.7 mcg/ml 06/22/16 0527 Random Vancomycin Level 20.2 mcg/ml 06/20/16 0544 Lab Results (24hrs): Laboratory Tests Test 06/22/16 05:27 BUN/Creatinine Ratio 5.2 Blood Urea Nitrogen 26 mg/dl Creatinine 5.10 mg/dl White Blood Count 4.96 K/uL Red Blood Count 3.92 M/uL Hemoglobin 12.0 g/dL Hematocrit 37.4 % Mean Corpuscular Volume 95.4 fL Mean Corpuscular Hemoglobin 30.6 pg Mean Corpuscular Hemoglobin Concent 32.1 g/dl Platelet Count 194 K/uL Mean Platelet Volume 11.4 fL Neutrophils (%) (Auto) 88.7 % Lymphocytes (%) (Auto) 7.1 % Monocytes (%) (Auto) 3.2 % Eosinophils (%) (Auto) 0.4 % Basophils (%) (Auto) 0.4 % Neutrophils # (Auto) 4.40 K/uL Lymphocytes # (Auto) 0.35 K/uL Monocytes # (Auto) 0.16 K/uL Eosinophils # (Auto) 0.02 K/uL Basophils # (Auto) 0.02 K/uL Micro Results: Item Value Date Time Blood Culture - Preliminary Resulted 06/18/16 1445 Blood NO GROWTH TO DATE. Blood Culture - Final Complete 06/18/16 1450 Blood Coag Neg Staph Not Lugd[place]ensis MRSA DNA Surveillance Screen - Final Complete 06/18/16 1945 Nasal Specimen Negative for MRSA by DNA Probe Blood Culture - Preliminary Resulted 06/20/16 1204 Blood NO GROWTH TO DATE. Blood Culture - Preliminary Resulted 06/20/16 1221 Blood NO GROWTH TO DATE. C.difficile Toxin B Gene (PCR) - Final Complete 06/21/16 0815 Stool No C. difficile toxin B gene detected Assessment & Plan: * Patient remains afebrile, WBC within normal limits, no left shift * Patient reported to be feeling well * Cultures remain negative with the exception of 1 of 2 BLCXs growing CoN Staph * Went to the OR today to remove PD cath as there was concern that this may be source for infxn VANCOMYCIN * 1700mg IV x 1 on 06/19 * Random AM level on 06/20 = 20.2 * Hemodialysis performed 06/21 * Random AM level on 06/22 = 22.5 * No dialysis is planned until Sunday 06/25 - electrolytes and volume status permitting * He does not produce much urine. * He will likely not need redosed until after HD on Saturday. Will order random vanco level with AM labs on Saturday to help guide redosing. ZOSYN * changing to Ceftriaxone today - deescalation of therapy Pharmacy will continue to follow and will adjust dose/frequency as necessary. Thank you
[2016-06-22] MEDS ORDERED: PHARMACY GLYCEMIC MGMT CONSULT SCH (13:43)
--- NOTE | 2016-06-22 13:57 | Anesthesiology Progress Note ---
Anesthesia Post Op Note Date & Time Jun 22, 2016 at 13:56 Vital Signs Pain Intensity: 0.0 Vital Signs Past 12 Hours Date Time Temp Pulse Resp B/P Pulse Ox O2 Delivery O2 Flow Rate FiO2 06/22/16 12:00 75 14 130/79 94 Room Air 06/22/16 12:00 Room Air 06/22/16 10:00 62 14 132/77 94 Room Air 06/22/16 09:15 36.6 56 13 102/66 95 Room Air 06/22/16 09:05 57 15 108/65 94 Room Air 06/22/16 09:00 Room Air 06/22/16 08:55 57 12 111/75 95 Room Air 06/22/16 08:45 36.3 58 12 110/61 92 Room Air 06/22/16 08:00 58 16 122/70 94 Room Air 06/22/16 08:00 Room Air 06/22/16 06:00 53 16 150/78 93 06/22/16 04:00 36.5 53 14 105/57 92 Room Air 06/22/16 04:00 93 Room Air 06/22/16 02:00 59 107/65 94 Notes Mental Status: alert / awake / arousable, participated in evaluation Pt Amnestic to Procedure: Yes Nausea / Vomiting: adequately controlled Pain: adequately controlled Airway Patency, RR, SpO2: stable & adequate BP & HR: stable & adequate Hydration State: stable & adequate Anesthetic Complications: no major complications apparent
[2016-06-22] MEDS: PANTOprazole SOD 40 MG TAB PO SCH (13:59)
[2016-06-22] MEDS: CEFTRIAXONE SOD INJ 1000 MG in DEXTROSE 5% 50ML IV SCH (13:59)
--- NOTE | 2016-06-22 14:03 | Pharmacy Progress Note ---
Glycemic Control Intl Consult Date of Service Jun 22, 2016. Scope Glycemic Pharmacist consulted by Dr Ovalles on 06/22/16 for glycemic control and to write orders per [facility] inpatient glycemic control protocol Objective Weight (Kilograms): 84.000 Accuchecks BSG (last 24hrs): Test 06/21/16 16:08 06/21/16 19:50 06/22/16 05:27 06/22/16 06:19 Bedside Glucose 66 mg/dl (70-99) 169 mg/dl (70-99) 122 mg/dl (70-99) Random Glucose 136 mg/dl (70-99) Test 06/22/16 11:30 Bedside Glucose 342 mg/dl (70-99) Laboratory Data (last 24hrs) Test 06/22/16 05:27 Anion Gap 14.0 mmol/L BUN/Creatinine Ratio 5.2 Blood Urea Nitrogen 26 mg/dl Creatinine 5.10 mg/dl Potassium Level 4.1 mmol/L Sodium Level 138 mmol/L White Blood Count 4.96 K/uL Red Blood Count 3.92 M/uL Hemoglobin 12.0 g/dL Hematocrit 37.4 % Mean Corpuscular Volume 95.4 fL Mean Corpuscular Hemoglobin 30.6 pg Mean Corpuscular Hemoglobin Concent 32.1 g/dl Platelet Count 194 K/uL Mean Platelet Volume 11.4 fL Neutrophils (%) (Auto) 88.7 % Lymphocytes (%) (Auto) 7.1 % Monocytes (%) (Auto) 3.2 % Eosinophils (%) (Auto) 0.4 % Basophils (%) (Auto) 0.4 % Neutrophils # (Auto) 4.40 K/uL Lymphocytes # (Auto) 0.35 K/uL Monocytes # (Auto) 0.16 K/uL Eosinophils # (Auto) 0.02 K/uL Basophils # (Auto) 0.02 K/uL Recent Pertinent Medications Outpatient Anti-diabetic Regimen: * no medications reported The patient is currently receiving: * Basal insulin: None * Correctional Insulin: Novolog Correction per scale ACHS Goal Range: Low 120 mg/dL - High 150 mg/dL Correction Factor: 25 mg/dL/unit * Prandial insulin: Per carb ratio of 1 unit per 20 grams CHO consumed * Oral Agents: None currently Risk Factors for Insulin Resistance: * Steroids: Solu-Cortef 50mg IV Q 8 hours * Infection: possible sepsis; receiving vancomycin + ceftriaxone * Recent Surgery: POD # 0 s/p removal PD catheter * Diet: ordered T2DM/Renal diet. He ate well after surgery this AM Assessment & Plan ASSESSMENT: 06/22/16 * Patient's glycemic control had been acceptable until after coming back from the OR today. All prior BSGs had been 66-169 * His BSGs did begin to climb after starting IV Solu-Cortef last evening for hypotension, possible relative adrenal insuff * He was NPO for the OR this AM, however after returning from the OR he ate several breakfast trays of food. The BSG drawn pre-lunch was 342 however this is more likely a post-prandial BSG. He proceeded to eat lunch as well. Novolog was given w/ lunch for BSG elevation and lunch CHO consumed. * It's difficult to estimate what he will ultimately require in terms of insulin at this time given the one elevated - but explainable. Fasting BSG was not elevated this AM after 2 doses of Solu-Cortef. Will not add basal yet. * Will increase BSG frequency and increase correctional/prandial insulin doses slightly PLAN FOR INPATIENT GLYCEMIC CONTROL: * No basal insulin at this time * Check BSGs ACHS and at 0200 tonight and cover w/ Novolog SQ * Changing correction factor to 20 mg/dl/unit * Changing carb ratio to 1 unit per 15 grams CHO consumed * Continuing goal range fo Low 120 mg/dL - High 150 mg/dL * Please note that the plan above was derived based on current level of insulin resistance and hospital stress. These recommendations are appropriate for inpatient admission only. Plan of care upon discharge will need to be reassessed to avoid potential outpatient hypo/hyperglycemia. Thank you.
[2016-06-22 19:11] LABS: URINE APPEARANCE CLEAR (CLEAR); URINE BILIRUBIN NEG (NEG); URINE COLOR YELLOW; URINE NITRITE NEG (NEG); URINE SPECIFIC GRAVITY 1.013 (1.000-1.030); UROBILINOGEN NEG (NEG); ZZURINE CULT IF INDIC CATH NO
[2016-06-22 19:14] LABS: MANUAL MICROSCOPIC REQUIRED? NO; REVIEW REQ? NO
[2016-06-22] MEDS: LATANOPROST 0.005% OP SOLN 2.5 ML BTL OPL SCH (21:05)
[2016-06-22] MEDS: GABAPENTIN 400 MG CAP PO SCH (21:06)
[2016-06-22] MEDS: APIXABAN 2.5 MG TAB PO SCH (21:06)
[2016-06-23] VITALS (7 sets, daily range): BP systolic 91–137; BP diastolic 53–84; PULSE 56–84; TEMP 36.6–37; O2SAT 91–95
[2016-06-23] MEDS ORDERED: INSULIN ASPART 100 UNITS/ML 3 ML PEN SC ONE (02:00)
[2016-06-23] MEDS: HYDROCORTISONE IV 50 MG in SYRINGE 0 ML IV SCH ×3 (02:18→17:13)
[2016-06-23] MEDS: LEVOTHYROXINE 100 MCG TAB PO SCH (06:00)
[2016-06-23 08:05] LABS: BASO % 0.1 %; BASO ABS # 0.01 K/uL (0-0.2); COMPLETE YES; EOS % 0.1 %; HEMATOCRIT 38.5 % (42-52); IG% 0.3 %; LYMPH % 8.1 %; LYMPH ABS # 0.56 K/uL (1.2-3.4); MEAN CELL VOLUME 94.4 fL (80-100); MEAN CORPUSCULAR HEMOGLOBIN 30.1 pg (25-34); MEAN CORPUSCULAR HGB CONC 31.9 g/dl (32-36); MEAN PLATELET VOLUME 11.4 fL (7.4-10.4); MONO % 5.6 %; NEUT % 85.8 %; PLATELET COUNT 182 K/uL (130-400); RED BLOOD COUNT 4.08 M/uL (4.7-6.1); WHITE BLOOD COUNT 6.93 K/uL (4.8-10.8)
[2016-06-23 08:41] LABS: BUN/CREATININE RATIO 5.7 (10-20); CALCIUM 8.6 mg/dl (8.5-10.1)
[2016-06-23 08:42] LABS: CREATININE 6.8 mg/dl (0.60-1.40); POTASSIUM 3.4 mmol/L (3.5-5.1)
[2016-06-23] MEDS: CALCIUM ACETATE 667MG GELCAP PO SCH ×3 (09:00→16:58)
[2016-06-23] MEDS: GABAPENTIN 400 MG CAP PO SCH ×3 (09:00→21:42)
[2016-06-23] MEDS: LACTOBACILLUS ACIDOPHILUS (FLORANEX) TAB PO SCH ×4 (09:00→21:43)
[2016-06-23] MEDS: PANTOprazole SOD 40 MG TAB PO SCH (09:00)
[2016-06-23] MEDS: ESCITALOPRAM OXALATE 10 MG TAB PO SCH (09:01)
[2016-06-23] MEDS: APIXABAN 2.5 MG TAB PO SCH ×2 (09:01→21:43)
[2016-06-23] MEDS: INSULIN ASPART 100 UNITS/ML 3 ML PEN SC SCH ×4 (09:07→21:47)
[2016-06-23] MEDS: CEFTRIAXONE SOD INJ 1000 MG in DEXTROSE 5% 50ML IV SCH (15:15)
--- NOTE | 2016-06-23 17:10 | Progress Note ---
Subjective Date of Service: Jun 23, 2016. Subjective Pt evaluation today including: conversation w/ patient, physical exam, chart review, lab review Problem List Medical Problems: (1) Abdominal pain Status: Acute (2) C. difficile colitis Status: Acute (3) Colitis Status: Acute (4) Dehydration Status: Acute (5) Fever Status: Acute (6) Hypotension Status: Acute (7) Infection associated with peritoneal dialysis catheter Status: Acute (8) Periumbilical abdominal pain Status: Acute (9) Weakness Status: Acute Review of Systems Constitutional: No chills, No fatigue, No fever, No problem reported, No see HPI, No sweats, No weakness, No weight loss Eyes: No diplopia, No discharge, No eye pain, No problem reported, No redness, No see HPI, No worsening of vision ENT: No dental problems, No hearing loss, No nasal symptoms, No problem reported, No see HPI, No sore throat, No tinnitus, No trouble swallowing, No unusual epistaxis Respiratory: No cough, No dyspnea at rest, No dyspnea on exertion, No hemoptysis, No problem reported, No see HPI, No shortness of breath, No sputum, No wheezing Cardiac: No PND, No chest pain, No claudication, No edema, No orthopnea, No palpitations, No problem reported, No see HPI Abdomen: No GI bleeding, No constipation, No diarrhea, No nausea, No pain, No problem reported, No see HPI, No vomiting Musculoskeletal: No calf pain, No joint pain, No muscle pain, No problem reported, No see HPI, No swelling Male : No dysuria, No hematuria, No incontinence, No nocturia more than once/ night, No problem reported, No see HPI, No sexual dysfunction, No slowing stream , No urinary frequency Neurologic: No balance problems, No memory loss, No numbness/tingling, No paralysis, No problem reported, No see HPI, No vertigo, No weakness Psychiatric: No anhedonism, No anxiety, No depression symptoms, No insomnia, No problem reported, No see HPI, No substance abuse Endo: No excessive thirst, No excessive urination, No fatigue, No problem reported, No see HPI Skin: No bleeding, No color change, No itch, No new/changing skin lesions, No problem reported, No rash, No see HPI Medications Current Inpatient Medications Medications (Trade) Dose Ordered Sig/Rigoberto Route Start Time Stop Time Status Last Admin Dose Admin Acetaminophen (Tylenol Tab) 650 mg Q4H PRN PO 06/18/16 16:30 07/18/16 16:29 Ondansetron HCl (Zofran Inj) 4 mg Q6H PRN IV 06/18/16 16:30 07/18/16 16:29 Insulin Aspart (novoLOG ASPART) SLIDING SCALE G... ACHS SC 06/18/16 21:00 07/18/16 20:59 06/23/16 13:02 10 UNITS Calcium Acetate (Phoslo Cap) 2,001 mg TIDM PO 06/18/16 18:00 07/18/16 17:59 06/23/16 12:50 2,001 MG Escitalopram Oxalate (Lexapro Tab) 10 mg DAILY PO 06/19/16 09:00 07/19/16 08:59 06/23/16 09:01 10 MG Gabapentin (Neurontin Cap) 400 mg MoWeFr@2100 PO 06/18/16 21:00 07/18/16 20:59 06/22/16 21:06 400 MG Gabapentin (Neurontin Cap) 400 mg SuTuThSa@0900,1400,2200 PO 06/19/16 09:00 07/19/16 08:59 06/23/16 15:15 400 MG Latanoprost (Xalatan Oph Soln) 1 drops HS OPL 06/18/16 21:00 07/18/16 20:59 06/22/16 21:05 1 DROPS Levothyroxine Sodium (Synthroid Tab) 100 mcg DAILYBB PO 06/19/16 06:00 07/19/16 06:59 06/23/16 06:00 100 MCG Midodrine (Proamatine Tab) 2.5 mg MoWeFr@0900,1400 PO 06/20/16 09:00 07/20/16 08:59 06/22/16 14:49 2.5 MG Temazepam (Restoril Cap) 15 mg HS PRN PO 06/18/16 16:30 07/18/16 16:29 06/21/16 22:15 15 MG Apixaban (Eliquis Tab) 5 mg Q12 PO 06/18/16 21:00 07/18/16 20:59 Future hold 06/23/16 09:01 5 MG Lactobacillus Acidophilus (Floranex Tab) 4 tab QIDM PO 06/19/16 11:30 07/19/16 11:29 06/23/16 12:50 4 TAB Vancomycin HCl (Consult) 1 UD PRN N/A 06/19/16 09:45 07/19/16 09:44 Calcium Acetate 667 mg 667 mg BID PRN PO 06/20/16 09:00 07/20/16 08:59 06/21/16 22:16 667 MG Hydrocortisone Sodium Succinate/ Syringe (Solu-Cortef IV/ Syringe) 1 ml @ 4 mls/min Q8@0200,1000,1800 IV 06/21/16 17:15 07/21/16 17:14 06/23/16 10:49 4 MLS/MIN Pantoprazole Sodium 40 mg 40 mg QAM PO 06/22/16 14:00 07/22/16 13:59 06/23/16 09:00 40 MG Ceftriaxone Sodium/Dextrose (Rocephin Inj/D5 50ml) 60 ml @ 120 mls/hr Q24H IV 06/22/16 14:00 07/02/16 13:59 06/23/16 15:15 120 MLS/HR Miscellaneous Information (Consult Glycemic Management Pharmacy) 1 UD N/A 06/22/16 13:43 07/22/16 13:42 Objective Vital Signs Date Time Temp Pulse Resp B/P Pulse Ox O2 Delivery O2 Flow Rate FiO2 06/23/16 11:58 36.9 60 16 130/80 93 06/23/16 07:24 36.9 59 20 137/84 93 06/23/16 04:22 36.7 57 16 126/78 95 06/23/16 00:25 36.9 56 16 91/53 93 06/22/16 19:30 36.8 62 18 127/80 95 Room Air Physical Exam General Appearance: no apparent distress Eyes: normal inspection, PERRL ENT: normal ENT inspection, hearing grossly normal, TMs normal Neck: supple, no adenopathy, thyroid normal, no JVD Respiratory/Chest: chest non-tender, lungs clear, normal breath sounds, no respiratory distress, no accessory muscle use Cardiovascular: regular rate, rhythm, no edema, no gallop, no JVD, no murmur Abdomen: normal bowel sounds, non tender, soft, no organomegaly Extremities: normal range of motion, non-tender, normal inspection, no pedal edema, + pertinent finding (left BKA) Neurologic/Psychiatric: cleaner and dyer II-XII nml as tested, no motor/sensory deficits, alert, normal mood/affect, oriented x 3 Skin: normal color, warm/dry, no rash Laboratory Results Last 24 Hours Test 06/22/16 17:50 06/22/16 20:31 06/23/16 02:13 06/23/16 06:50 Urine Color YELLOW Urine Appearance CLEAR Urine pH 5.0 Urine Specific Willis 1.013 Urine Protein NEG Urine Glucose (UA) 1+ Urine Ketones NEG Urine Occult Blood NEG Urine Nitrite NEG Urine Bilirubin NEG Urine Urobilinogen NEG Urine Leukocyte Esterase SMALL Urine WBC (Auto) 1-5 /hpf Urine RBC (Auto) 0-4 /hpf Urine Hyaline Casts (Auto) 1-5 /lpf Urine Epithelial Cells (Auto) 5-10 /lpf Urine Bacteria (Auto) NEG Bedside Glucose 127 mg/dl 161 mg/dl 149 mg/dl Test 06/23/16 07:55 06/23/16 11:21 06/23/16 15:54 White Blood Count 6.93 K/uL Red Blood Count 4.08 M/uL Hemoglobin 12.3 g/dL Hematocrit 38.5 % Mean Corpuscular Volume 94.4 fL Mean Corpuscular Hemoglobin 30.1 pg Mean Corpuscular Hemoglobin Concent 31.9 g/dl Platelet Count 182 K/uL Mean Platelet Volume 11.4 fL Neutrophils (%) (Auto) 85.8 % Lymphocytes (%) (Auto) 8.1 % Monocytes (%) (Auto) 5.6 % Eosinophils (%) (Auto) 0.1 % Basophils (%) (Auto) 0.1 % Neutrophils # (Auto) 5.94 K/uL Lymphocytes # (Auto) 0.56 K/uL Monocytes # (Auto) 0.39 K/uL Eosinophils # (Auto) 0.01 K/uL Basophils # (Auto) 0.01 K/uL RDW Standard Deviation 52.1 fL RDW Coefficient of Variation 15.3 % Immature Granulocyte % (Auto) 0.3 % Immature Granulocyte # (Auto) 0.02 K/uL Sodium Level 138 mmol/L Potassium Level 3.4 mmol/L Chloride Level 104 mmol/L Carbon Dioxide Level 19 mmol/L Anion Gap 15.0 mmol/L Blood Urea Nitrogen 40 mg/dl Creatinine 6.80 mg/dl Est Creatinine Clear Calc Drug Dose 12.4 ml/min Estimated GFR () 9.4 Estimated GFR (Non- 8.1 BUN/Creatinine Ratio 5.7 Random Glucose 177 mg/dl Calcium Level 8.6 mg/dl Bedside Glucose 274 mg/dl 172 mg/dl Assessment and Plan This is a 60 yo m from [facility] with a h/o ESRD (followed by Dr Buchanan), DMII , h/o MRSA and C diff and post [place] x 2 that presented to us in the ED with Palpitations yesterday during dialysis he developed rapid junctional rhythm which actually spontaneously converted also had systolic hypotension between 70-80. Assessment/plan: Hypotension, on admission, also yesterday when they removed 500cc on dialysis unlikely Septic shock , all cultures are negative except 1/4 CAN staph which likely a contaminate, currently off levophed cortisol level is 8.85 in the circumstances of his very low blood pressure, it might indicate relative adrenal insufficiency ,started hydrocortisone yesterday and the pressure is good since then multiple potential sources, HD cath, PD cath, S/P removal of his peritoneal dialysis catheter DC vanco switch zosyn to CTXN likely SIRS due to non infectious cause will start tapering down steroids SVT currently normal sinus consult call center coordinator appreciated, S/P electrophysiology study and ablation Patient has had an echo in December 2015 - EF 55-60% LV normal in size and motion - Grade I diastolic failure ESRD requiring dialysis consult cisco engineer was appreciated H/O C Diff will DC levofloxacin Add lactinex for C diff prophylaxis DMII SSI DVT prophylaxis already on AC Hypothyroidism TSH was slightly elevated continue synthroid same dose Hx of A fib continue AC, can be transferred to telemetry when ok with critical care
[2016-06-23] MEDS: LATANOPROST 0.005% OP SOLN 2.5 ML BTL OPL SCH (21:44)
[2016-06-24 03:50] VITALS: BP 130/84; PULSE 58; TEMP 36.7; O2SAT 93
[2016-06-24] MEDS: LEVOTHYROXINE 100 MCG TAB PO SCH (05:43)
[2016-06-24 06:34] LABS: COMPLETE YES; IG% 0.2 %; LYMPH % 8.3 %; LYMPH ABS # 0.53 K/uL (1.2-3.4); MEAN CELL VOLUME 93.9 fL (80-100); MEAN CORPUSCULAR HEMOGLOBIN 29.7 pg (25-34); MEAN CORPUSCULAR HGB CONC 31.6 g/dl (32-36); MEAN PLATELET VOLUME 11.1 fL (7.4-10.4); MONO % 3.3 %; NEUT % 88.2 %; PLATELET COUNT 203 K/uL (130-400); RED BLOOD COUNT 3.94 M/uL (4.7-6.1); WHITE BLOOD COUNT 6.37 K/uL (4.8-10.8)
[2016-06-24 07:17] LABS: ALB/GLOB RATIO 0.8 (0.9-2); ALKALINE PHOSPHATASE 88 U/L (45-117); ALT/SGPT 13 U/L (12-78); BLOOD UREA NITROGEN 55 mg/dl (7-18); BUN/CREATININE RATIO 6.7 (10-20); CALCIUM 8.4 mg/dl (8.5-10.1); CARBON DIOXIDE 21 mmol/L (21-32); CHLORIDE 102 mmol/L (98-107); GLUCOSE 166 mg/dl (70-99); SODIUM 139 mmol/L (136-145)
[2016-06-24 08:12] VITALS: BP 152/85; PULSE 68; TEMP 36.8; O2SAT 96
[2016-06-24] MEDS: CALCIUM ACETATE 667MG GELCAP PO SCH ×3 (09:01→17:16)
[2016-06-24] MEDS: PANTOprazole SOD 40 MG TAB PO SCH (09:01)
[2016-06-24] MEDS: GABAPENTIN 400 MG CAP PO SCH ×3 (09:02→21:33)
[2016-06-24] MEDS: LACTOBACILLUS ACIDOPHILUS (FLORANEX) TAB PO SCH ×4 (09:02→21:34)
[2016-06-24] MEDS: APIXABAN 2.5 MG TAB PO SCH ×2 (09:02→21:33)
[2016-06-24] MEDS: ESCITALOPRAM OXALATE 10 MG TAB PO SCH (09:03)
[2016-06-24] MEDS: INSULIN ASPART 100 UNITS/ML 3 ML PEN SC SCH ×4 (09:17→21:30)
[2016-06-24 09:24] LABS: MAGNESIUM 2.4 mg/dl (1.8-2.4); POTASSIUM 3.7 mmol/L (3.5-5.1)
[2016-06-24 11:46] VITALS: BP 113/72; PULSE 70; TEMP 36.8; O2SAT 93
--- NOTE | 2016-06-24 14:17 | Pharmacy Progress Note ---
Glycemic: Assessment & Plan Date of Service Jun 24, 2016. Assessment & Plan * BSGs ranging 152 - 274 mg/dl over the past 24hrs. * Pt ordered DM2/Renal diet. * BSGs should continue to improve as steroids are tapered. HC IV ATC --> Prednisone 20mg po daily. * Will tighten Novolog CR to redistribute parameters better (i.e. CR should be ~ 1/3 of CF). Also, loosen the Novolog CF to account for additional carb coverage and tapering of steroids. * FBG this morning was 152 mg/dl. No basal insulin needed. PLAN FOR INPATIENT GLYCEMIC CONTROL: * Basal insulin: none * Correctional Insulin: Novolog Correction per scale ACHS Goal Range: Low 120 mg/dL - High 150 mg/dL Loosen - Correction Factor: 25 mg/dL/unit * Prandial insulin: Tighten - Per carb ratio of 1 unit per 10 grams CHO consumed Pharmacy will continue to monitor patient daily and write orders per [facility] inpatient glycemic control protocol. Thanks. * Please note that the plan above was derived based on current level of insulin resistance and hospital stress. These recommendations are appropriate for inpatient admission only. Plan of care upon discharge will need to be reassessed to avoid potential outpatient hypo/hyperglycemia.
[2016-06-24] MEDS: CEFTRIAXONE SOD INJ 1000 MG in DEXTROSE 5% 50ML IV SCH (14:35)
--- NOTE | 2016-06-24 14:55 | PROGRESS NOTE ---
DATE: 06/24/2016 HISTORY OF PRESENT ILLNESS: The patient is a 60-year-old white male with end-stage renal disease on hemodialysis who presents to the Emergency Department with tachycardia, arrhythmia, and hypertension. He had his PD catheter removed on June 22. His last dialysis was on June 21. He appears completely normal without any symptoms. Denies nausea, vomiting, chest pain, shortness of breath, fevers, chills, or rigors. He has no edema. He is eating and drinking normally. PHYSICAL EXAMINATION: VITAL SIGNS: Blood pressure 113/72, 93% on room air, temperature 36.8, pulse rate 70 per minute. HEENT: Mucous membrane is moist. NECK: Supple. No jugular venous distention. CHEST: Bilateral clear to auscultation. CARDIOVASCULAR: S1 and S2, regular. ABDOMEN: Soft, nontender. EXTREMITIES: Shows no edema. He does have some chronic venous stasis skin changes, catheter for dialysis. NEUROLOGIC: Moving all 4 extremities. LABORATORY TESTS: From this morning shows hemoglobin of 11.7. Platelet count 203. Sodium 139, potassium 3.7, BUN 55, creatinine 8.3, calcium 8.4, albumin 3.0. ASSESSMENT AND PLAN: End-stage renal disease. He does not have any fluid or electrolyte emergency needing dialysis today. He is pretty stable from my standpoint. If agreeable to Dr. Mcdonnell and hospitalist service, he can be discharged today. He can have his dialysis as an outpatient at his regular at a dialysis unit which is [facility]. If he is still inpatient tomorrow, we will do dialysis as an inpatient. Medication list was reviewed and no further changes needed at this time.
--- NOTE | 2016-06-24 19:21 | Progress Note ---
Subjective Date of Service: Jun 24, 2016. Subjective Pt evaluation today including: conversation w/ patient, conversation w/ family , physical exam, lab review Problem List Medical Problems: (1) Abdominal pain Status: Acute (2) C. difficile colitis Status: Acute (3) Colitis Status: Acute (4) Dehydration Status: Acute (5) Fever Status: Acute (6) Hypotension Status: Acute (7) Infection associated with peritoneal dialysis catheter Status: Acute (8) Periumbilical abdominal pain Status: Acute (9) Weakness Status: Acute Review of Systems Constitutional: No chills, No fatigue, No fever, No problem reported, No see HPI, No sweats, No weakness, No weight loss Eyes: No diplopia, No discharge, No eye pain, No problem reported, No redness, No see HPI, No worsening of vision ENT: No dental problems, No hearing loss, No nasal symptoms, No problem reported, No see HPI, No sore throat, No tinnitus, No trouble swallowing, No unusual epistaxis Respiratory: No cough, No dyspnea at rest, No dyspnea on exertion, No hemoptysis, No problem reported, No see HPI, No shortness of breath, No sputum, No wheezing Cardiac: No PND, No chest pain, No claudication, No edema, No orthopnea, No palpitations, No problem reported, No see HPI Abdomen: No GI bleeding, No constipation, No diarrhea, No nausea, No pain, No problem reported, No see HPI, No vomiting Musculoskeletal: No calf pain, No joint pain, No muscle pain, No problem reported, No see HPI, No swelling Male : No dysuria, No hematuria, No incontinence, No nocturia more than once/ night, No problem reported, No see HPI, No sexual dysfunction, No slowing stream , No urinary frequency Neurologic: No balance problems, No memory loss, No numbness/tingling, No paralysis, No problem reported, No see HPI, No vertigo, No weakness Psychiatric: No anhedonism, No anxiety, No depression symptoms, No insomnia, No problem reported, No see HPI, No substance abuse Endo: No excessive thirst, No excessive urination, No fatigue, No problem reported, No see HPI Skin: No bleeding, No color change, No itch, No new/changing skin lesions, No problem reported, No rash, No see HPI Medications Current Inpatient Medications Medications (Trade) Dose Ordered Sig/Rigoberto Route Start Time Stop Time Status Last Admin Dose Admin Acetaminophen (Tylenol Tab) 650 mg Q4H PRN PO 06/18/16 16:30 07/18/16 16:29 Ondansetron HCl (Zofran Inj) 4 mg Q6H PRN IV 06/18/16 16:30 07/18/16 16:29 Insulin Aspart (novoLOG ASPART) SLIDING SCALE G... ACHS SC 06/18/16 21:00 07/18/16 20:59 06/24/16 17:22 7 UNITS Calcium Acetate (Phoslo Cap) 2,001 mg TIDM PO 06/18/16 18:00 07/18/16 17:59 06/24/16 17:16 2,001 MG Escitalopram Oxalate (Lexapro Tab) 10 mg DAILY PO 06/19/16 09:00 07/19/16 08:59 06/24/16 09:03 10 MG Gabapentin (Neurontin Cap) 400 mg MoWeFr@2100 PO 06/18/16 21:00 07/18/16 20:59 06/22/16 21:06 400 MG Gabapentin (Neurontin Cap) 400 mg SuTuThSa@0900,1400,2200 PO 06/19/16 09:00 07/19/16 08:59 06/24/16 14:05 400 MG Latanoprost (Xalatan Oph Soln) 1 drops HS OPL 06/18/16 21:00 07/18/16 20:59 06/23/16 21:44 1 DROPS Levothyroxine Sodium (Synthroid Tab) 100 mcg DAILYBB PO 06/19/16 06:00 07/19/16 06:59 06/24/16 05:43 100 MCG Midodrine (Proamatine Tab) 2.5 mg MoWeFr@0900,1400 PO 06/20/16 09:00 07/20/16 08:59 06/22/16 14:49 2.5 MG Temazepam (Restoril Cap) 15 mg HS PRN PO 06/18/16 16:30 07/18/16 16:29 06/21/16 22:15 15 MG Apixaban (Eliquis Tab) 5 mg Q12 PO 06/18/16 21:00 07/18/16 20:59 Future hold 06/24/16 09:02 5 MG Lactobacillus Acidophilus (Floranex Tab) 4 tab QIDM PO 06/19/16 11:30 07/19/16 11:29 06/24/16 17:17 4 TAB Calcium Acetate (Phoslo Cap) 667 mg BID PRN PO 06/20/16 09:00 07/20/16 08:59 06/21/16 22:16 667 MG Pantoprazole Sodium 40 mg 40 mg QAM PO 06/22/16 14:00 07/22/16 13:59 06/24/16 09:01 40 MG Ceftriaxone Sodium/Dextrose (Rocephin Inj/D5 50ml) 60 ml @ 120 mls/hr Q24H IV 06/22/16 14:00 07/02/16 13:59 06/24/16 14:35 120 MLS/HR Miscellaneous Information (Consult Glycemic Management Pharmacy) 1 ea UD N/A 06/22/16 13:43 07/22/16 13:42 Prednisone (PredniSONE TAB) 20 mg QAM PO 06/23/16 17:10 07/23/16 17:09 06/24/16 09:02 20 MG Objective Vital Signs Date Time Temp Pulse Resp B/P Pulse Ox O2 Delivery O2 Flow Rate FiO2 06/24/16 12:00 Room Air 06/24/16 11:46 36.8 70 18 113/72 93 06/24/16 08:30 Room Air 06/24/16 08:12 36.8 68 20 152/85 96 06/24/16 04:00 Room Air 06/24/16 03:50 36.7 58 18 130/84 93 Room Air 06/24/16 00:00 Room Air 06/23/16 23:13 36.6 61 18 116/75 94 Room Air 06/23/16 20:32 36.8 56 16 136/82 95 06/23/16 20:00 Room Air Physical Exam General Appearance: no apparent distress Eyes: normal inspection, PERRL, EOMI ENT: normal ENT inspection, hearing grossly normal Neck: supple Respiratory/Chest: chest non-tender, lungs clear, normal breath sounds, no respiratory distress Cardiovascular: regular rate, rhythm, no edema, no gallop, no JVD Abdomen: normal bowel sounds, non tender, soft, no organomegaly Extremities: normal range of motion, non-tender, + pertinent finding (BKA) Neurologic/Psychiatric: organ assembler II-XII nml as tested, no motor/sensory deficits, alert, normal mood/affect, oriented x 3 Laboratory Results Last 24 Hours Test 06/23/16 19:49 06/24/16 06:18 06/24/16 06:29 06/24/16 08:58 Bedside Glucose 171 mg/dl 152 mg/dl White Blood Count 6.37 K/uL Red Blood Count 3.94 M/uL Hemoglobin 11.7 g/dL Hematocrit 37.0 % Mean Corpuscular Volume 93.9 fL Mean Corpuscular Hemoglobin 29.7 pg Mean Corpuscular Hemoglobin Concent 31.6 g/dl Platelet Count 203 K/uL Mean Platelet Volume 11.1 fL Neutrophils (%) (Auto) 88.2 % Lymphocytes (%) (Auto) 8.3 % Monocytes (%) (Auto) 3.3 % Eosinophils (%) (Auto) 0.0 % Basophils (%) (Auto) 0.0 % Neutrophils # (Auto) 5.62 K/uL Lymphocytes # (Auto) 0.53 K/uL Monocytes # (Auto) 0.21 K/uL Eosinophils # (Auto) 0.00 K/uL Basophils # (Auto) 0.00 K/uL RDW Standard Deviation 51.8 fL RDW Coefficient of Variation 15.2 % Immature Granulocyte % (Auto) 0.2 % Immature Granulocyte # (Auto) 0.01 K/uL Sodium Level 139 mmol/L Potassium Level mmol/L 3.7 mmol/L Chloride Level 102 mmol/L Carbon Dioxide Level 21 mmol/L Anion Gap 16.0 mmol/L Blood Urea Nitrogen 55 mg/dl Creatinine 8.30 mg/dl Est Creatinine Clear Calc Drug Dose 10.1 ml/min Estimated GFR () 7.4 Estimated GFR (Non- 6.4 BUN/Creatinine Ratio 6.7 Random Glucose 166 mg/dl Calcium Level 8.4 mg/dl Magnesium Level mg/dl 2.4 mg/dl Total Bilirubin 0.4 mg/dl Aspartate Amino Transf (AST/SGOT) U/L 11 U/L Alanine Aminotransferase (ALT/SGPT) 13 U/L Alkaline Phosphatase 88 U/L Total Protein 6.8 gm/dl Albumin 3.0 gm/dl Globulin 3.8 gm/dl Albumin/Globulin Ratio 0.8 Random Vancomycin Level 20.2 mcg/ml Test 06/24/16 11:32 06/24/16 15:50 Bedside Glucose 210 mg/dl 250 mg/dl Assessment and Plan This is a 60 yo m from [facility] with a h/o ESRD (followed by Dr Buchanan), DMII , h/o MRSA and C diff and post [place] x 2 that presented to ED with Palpitations started during dialysis also had systolic hypotension between 70-80. Assessment/plan: Hypotension, on admission, also yesterday when they removed 500cc on dialysis unlikely Septic shock , all cultures are negative except 1/4 CAN staph which likely a contaminate, currently off levophed cortisol level is 8.85 in the circumstances of his very low blood pressure, it might indicate relative adrenal insufficiency ,started hydrocortisone yesterday and the pressure is good since then multiple potential sources, HD cath, PD cath, S/P removal of his peritoneal dialysis catheter DC vanco switch zosyn to CTXN , continue through tomorrow to cover possible SBP likely SIRS due to non infectious cause will start tapering down steroids, currently on 10mg po daily SVT currently normal sinus consult talent recruiter appreciated, S/P electrophysiology study and ablation Patient has had an echo in December 2015 - EF 55-60% LV normal in size and motion - Grade I diastolic failure ESRD requiring dialysis consult senior analysis specialist was appreciated H/O C Diff will DC levofloxacin Add lactinex for C diff prophylaxis DMII SSI DVT prophylaxis already on AC Hypothyroidism TSH was slightly elevated continue synthroid same dose Hx of A fib continue AC, tried to discharge him today but unfortunately case maker could not reach his home health
[2016-06-24 19:45] VITALS: BP 118/76; PULSE 56; TEMP 36.8; O2SAT 96
[2016-06-24] MEDS: LATANOPROST 0.005% OP SOLN 2.5 ML BTL OPL SCH (21:38)
[2016-06-24 22:48] VITALS: BP 131/76; PULSE 79; TEMP 37; O2SAT 93
[2016-06-25] VITALS (18 sets, daily range): BP systolic 108–156; BP diastolic 52–98; PULSE 50–90; TEMP 36.5–36.9; O2SAT 92–96
[2016-06-25] MEDS: LEVOTHYROXINE 100 MCG TAB PO SCH (06:05)
[2016-06-25] MEDS: INSULIN ASPART 100 UNITS/ML 3 ML PEN SC SCH ×2 (07:00→12:40)
[2016-06-25] MEDS: LACTOBACILLUS ACIDOPHILUS (FLORANEX) TAB PO SCH ×2 (07:30→10:44)
[2016-06-25] MEDS: CALCIUM ACETATE 667MG GELCAP PO SCH ×2 (07:30→10:43)
--- NOTE | 2016-06-25 08:39 | Anesthesiology Progress Note ---
Anesthesia Post Op Note Date & Time Jun 25, 2016 at 08:39 Vital Signs Pain Intensity: 0.0 Vital Signs Past 12 Hours Date Time Temp Pulse Resp B/P Pulse Ox O2 Delivery O2 Flow Rate FiO2 06/25/16 08:30 78 112/78 06/25/16 08:15 79 128/71 06/25/16 08:02 36.8 52 18 130/90 92 06/25/16 08:00 68 150/98 06/25/16 07:45 63 141/84 06/25/16 07:30 56 129/78 06/25/16 07:15 56 156/93 06/25/16 07:00 50 131/85 06/25/16 06:45 52 131/80 06/25/16 06:30 53 139/80 06/25/16 06:00 36.8 50 130/52 06/25/16 04:00 Room Air 06/25/16 03:57 36.5 53 18 137/94 96 Room Air 06/24/16 23:59 Room Air 06/24/16 22:48 37.0 79 20 131/76 93 Room Air Notes Mental Status: alert / awake / arousable, participated in evaluation Pt Amnestic to Procedure: Yes Nausea / Vomiting: adequately controlled Pain: adequately controlled Airway Patency, RR, SpO2: stable & adequate BP & HR: stable & adequate Hydration State: stable & adequate Anesthetic Complications: no major complications apparent
[2016-06-25] MEDS: APIXABAN 2.5 MG TAB PO SCH (10:43)
[2016-06-25] MEDS: ESCITALOPRAM OXALATE 10 MG TAB PO SCH (10:43)
[2016-06-25] MEDS: PANTOprazole SOD 40 MG TAB PO SCH (10:44)
[2016-06-25] MEDS: MIDODRINE 2.5 MG TAB PO SCH ×2 (10:44→13:25)
--- NOTE | 2016-06-25 12:09 | Discharge Instructions ---
Discharge Instructions Admission Reason for Admission: Arrhythmia Discharge Discharge Diagnosis / Problem: Hypotension, arrythmia Discharge Goals Goal(s): Decrease discomfort, Diagnostic testing, Therapeutic intervention Activity Recommendations Activity Limitations: resume your previous activity (with home physical therapy services) . Instructions / Follow-Up Instructions / Follow-Up You were admitted to the hospital with hypotension (low blood pressure) and an arrhythmia (abnormal heart rhythm). You were initially admitted to the intensive care unit. A test of your random cortisol suggested adrenal insufficiency, so were you were started on an IV steroid called hydrocortisone, which did improve your blood pressure. You have been tapered off of this steroid and no longer need to take it after discharge. Your finasteride (Proscar) has been held. Although your blood pressure has improved and is now stable prior to discharge, it has been borderline low at times. Finasteride can also lower your blood pressure, so please continue to hold that medication for now. Follow up with your primary care provider within the next week regarding your recent hospital stay, and your primary care provider can continue to monitor your blood pressure and decide when it is appropriate to restart the finasteride. During your hospital stay you had an ablation of your heart done by Dr. Cedeño in order to treat the abnormal heart rhythm. The procedure was successful, and cardiology has recommended that you discontinue your home amiodarone to see how you do. Please stop the amiodarone until you follow up with cardiology, and they can decide if it needs to be restarted at a later date. Please follow up with Dr. Cedeño in 2 weeks regarding your recent procedure and your arrhythmia. His office information and number are included in your discharge instructions. Please call if you become symptomatic again prior to your appointment. Your peritoneal catheter was also removed during your hospital stay as it is nonfunctional and you have been using hemodialysis instead. Please seek medical attention if this site becomes red, hot, tender, or has any drainage. Continue with your home physical therapy due to your weakness and fatigue. You may resume your previous activities as cleared by physical therapy services. Please seek medical attention if you experience fevers, chills, sweats, lightheadedness/dizziness, loss of consciousness, palpitations, chest pain, or shortness of breath. Current Hospital Diet Patient's current hospital diet: Diabetes Type 2 Diet, Renal Diet Discharge Diet Recommended Diet: Diabetes Type 2 Diet, Renal Diet Procedures Procedures Performed: Left internal jugular central line, Ablation of atrial tachycardia, Removal CAPD catheter Pending Studies Studies pending at discharge: no Laboratory Results Hemoglobin A1c Test 05/04/16 04:38 Range/Units Estimated Average Glucose 91 mg/dl Hemoglobin A1c 4.8 4.5-5.6 % Medical Emergencies . Who to Call and When: Medical Emergencies: If at any time you feel your situation is an emergency, please call 911 immediately. . Non-Emergent Contact Non-Emergency issues call your: Primary Care Provider, [employer] Blocking Operator Call Non-Emergent contact if: you have a fever, you have any medication questions . . "Provider Documentation" section prepared by Jessie Perdue. VTE Core Measure Inpt VTE Proph given/why not?: Other Anticoagulation (Eliquis), T.E.D. Stockings, SCD's
[2016-06-25] MEDS: CEFTRIAXONE SOD INJ 1000 MG in DEXTROSE 5% 50ML IV SCH (13:25)
--- NOTE | 2016-06-25 13:57 | Discharge Summary ---
Discharge Summary Admission Date: Jun 18, 2016 at 16:37 Discharge Date: Jun 25, 2016 Discharge Disposition: Home with services Principal Diagnosis: Hypotension, arrhythmia Procedures: [place] [id number] Preliminary Cardiology Procedure Note Patient Name: ASHLEY CANTU Admit Date: 06/18/1700/16/17 Med Rec: [id number] Att Phy: Saima Hernandez MD Acct ID: [id number] Celina Phy: RV. Hudson MD Date: 1955 Fam Phy: RV. Hudson MD Age: 60 Location: [facility] [place] Sex: Room/Bed: [facility] CC: RV. Hudson MD Nydegger, Charles C M.D. *NOTICE TO RECEIVING LIBERTARIAN/AGENCY This information is strictly Confidential and protected under [place] law. [place] law prohibits you from making any further disclosure of this information unless further disclosure is expressly permitted by the written consent of the person to whom it pertains or is authorized by law. A general authorization for the release of medical or other information is not sufficient for this purpose. Hospital accepts no responsibility if the information is made available to any other person, INCLUDING THE PATIENT. Preliminary Cardiology Note Procedure Date Jun 21, 2016. Pre-Procedure Diagnosis SVT Post-Procedure Diagnosis paroxysmal atrial tachycardia Procedure(s) Performed 3 There electrophysiologic study 3-D mapping Ablation of atrial tachycardia Bacteriology Research Assistant Dr. Cedeño Expressive Art Therapist(s) none Estimated Blood Loss 10 cc Preliminary Findings No evidence of dual AV pippa pathways or inducible AV node reentry, no evidence of bypass tract conduction Mapping of an easily inducible atrial tachycardia demonstrates a location at the inferior/right lateral right atrium. Ablation performed in this location appears to be reasonably successful. Recommendations Returned to ICU Specimens None Anesthesia local with sedation Complication(s) None Disposition Surgical ICU <Electronically signed by Omar Cedeño M.D.> Signed: 06/21/16 1202 Signed: The status of this report is Signed * If report status is Draft, the document has not been finalized by the responsible provider. [place], [place] Operative Summary Note Patient Name: ASHLEY CANTU Admit Date: 06/18/1700/16/17 Med Rec: [id number] Att Phy: Saima Hernandez MD Acct ID: [id number] Celina Phy: RV. Hudson MD Date: 1955 Fam Phy: RV. Hudson MD Age: 60 Location: [facility] [place] Sex: Room/Bed: [facility] CC: RV. uHdson MD Simoni, Eugene J., M.D. *NOTICE TO RECEIVING LIBERTARIAN/AGENCY This information is strictly Confidential and protected under [place] law. [place] law prohibits you from making any further disclosure of this information unless further disclosure is expressly permitted by the written consent of the person to whom it pertains or is authorized by law. A general authorization for the release of medical or other information is not sufficient for this purpose. Hospital accepts no responsibility if the information is made available to any other person, INCLUDING THE PATIENT. Immediate Operative Summary Operative Date Jun 22, 2016. Pre-Operative Diagnosis Non functioning CAPD catheter Post-Operative Diagnosis Non functioning CAPD catheter Procedure(s) Performed Removal CAPD catheter Surgeon Dr. Unruly Mcdonnell Expressive Art Therapist Surgeon(s) none Estimated Blood Loss 10 ml Findings catheter and both cuffs removed Specimens A. Explanted peritoneal dialysis catheter Anesthesia MAC Complication(s) None Disposition Surgical ICU <Electronically signed by Unruly Mcdonnell M.D.> Signed: 06/22/16 0838 Signed: The status of this report is Signed * If report status is Draft, the document has not been finalized by the responsible provider (Jessie Perdue, RAMBO) Medication Reconciliation Continued Medications: Acetaminophen Tab (Tylenol) 325 Mg Tab 650 MG PO Q6 PRN for Pain or Fever Apixaban (Eliquis) 5 Mg Tab 5 MG PO Q12 B-Complex W/ C & Folic Acid (Nephronex) 1 Liq Liq 5 ML PO BID GIVE AT 1200 & 2000 Bisacodyl (Dulcolax) 10 Mg Sup 1 SUPP WI DAILY PRN for Constipation, SUP Calcium Acetate (Phoslo 667 Mg) 667 Mg Cap 3 CAP PO TIDM, 5 Refills Calcium Acetate (Phoslo 667 Mg) 667 Mg Cap 1 CAP PO BID PRN for SNACKS Enteral Nutrition Formula (Nepro Carb Steady) 1 Can Liqd 1 CAN PO DAILY, CAN Escitalopram (Lexapro) 10 Mg Tab 10 MG PO DAILY Gabapentin (Neurontin) 400 Mg Cap 400 MG PO HS, CAP on Sat, Sat, Sat- at 2000 Gabapentin (Neurontin) 400 Mg Cap 800 MG PO 3XWK, CAP on Sat, Sat, Sat. at noon Gabapentin (Neurontin) 400 Mg Cap 400 MG PO TID, CAP SUN,TUE,CARLOS A,SAT Lactobacillus Acidophilus (Lactinex) Tab 1 TAB PO BID, TAB Latanoprost 0.005% Oph (Xalatan 0.005% Oph) Soln 1 DROP OPL HS Levothyroxine Sodium (Synthroid) 100 Mcg Tab 100 MCG PO DAILY, 5 Refills Midodrine (Midodrine HCl) 2.5 Mg Tab 2.5 MG PO UD GIVE BID EVERY SATURDAY,SATURDAY,FRIDAYS Omeprazole (Prilosec) 20 Mg Capcr 20 MG PO DAILY Oxycodone/Acetaminophen 5MG/325MG (Percocet 5MG/325MG) Tab 1 TABLET PO PRN UD PRN for Pain, TAB PAIN Polyethylene Glycol 3350 (Miralax) 1 Pow Pow 17 GM PO UD, #527 GM Temazepam (Restoril) 15 Mg Cap 15 MG PO HS PRN for Sleep, CAP Discontinued Medications: Amiodarone Hcl (Cordarone) 200 Mg Tab 200 MG PO DAILY Finasteride (Proscar) 5 Mg Tab 5 MG PO DAILY, 1 Refill Referrals At Discharge Follow up Referrals: Bacteriology Research Assistant Referral - Within 2 Weeks with Omar Cedeño M.D. Discharge Exam Patient reports feeling well with no complaints. The patient denies fevers, chills, sweats, chest pain, palpitations, claudication, cough, wheezing, shortness of breath, nausea, vomiting, abdominal pain, dysuria, hematuria, urinary retention, paralysis, weakness, numbness and tingling. Review of Systems: Constitutional: No chills, No fever, No sweats Eyes: No diplopia, No eye pain, No worsening of vision ENT: No hearing loss, No sore throat, No trouble swallowing Respiratory: No cough, No shortness of breath, No wheezing Cardiovascular: No chest pain, No claudication, No palpitations Abdomen: No nausea, No pain, No vomiting Musculoskeletal: No calf pain, No joint pain, No muscle pain Genitourinary - Male: + problem reported (makes little urine due to ESRD), No dysuria, No hematuria Neurologic: No numbness/tingling, No paralysis, No weakness Integumentary: No color change, No itch, No rash Physical Exam: General Appearance: WD/WN, no apparent distress, + pertinent finding ( appears chronically ill) Eyes: normal inspection, sclerae normal, + pertinent finding (mild disconjugate gaze) ENT: normal ENT inspection, hearing grossly normal, pharynx normal Neck: supple, no JVD, trachea midline Respiratory/Chest: normal breath sounds, no respiratory distress, + rhonchi (scattered) Cardiovascular: regular rate, rhythm, no gallop, no murmur Abdomen / GI: normal bowel sounds, non tender, soft Extremities: normal inspection, no pedal edema, + pertinent finding (left lower leg amputated) Neurologic/Psychiatric: alert, normal mood/affect, oriented x 3 Skin: normal color, warm/dry, no rash (Jessie Perdue, PA-C) Hospital Course 60 y/o male with a history of ESRD (followed by Dr Buchanan), DM II, h/o MRSA and C diff, and post AL x 2 that presented to ED on 06/18 with palpitations that started during dialysis, as well as a systolic hypotension between 70-80. Hypotension -Admitted to ICU, transferred to telemetry on 06/23 -Patient given Levophed which did improve BP, eventually weaned off -Cortisol level low at 8.85 and in the setting of hypotension may indicate an acute adrenal insufficiency. BP responded well to hydrocortisone -Hydrocortisone tapered and switched to oral Prednisone, which was also tapered. Pt d/c Prednisone at discharge -Unlikely Septic shock , all cultures are negative except 06/06 coagulase negative staph which likely a contaminate, no other signs of infection -D/C Rocephin, no signs of SBP -Multiple potential sources, HD cath, PD cath, S/P removal of his peritoneal dialysis catheter 06/22 as it is nonfunctional -Continue to hold finasteride as some borderline low BP readings this am. Can f /u with PCP and resume at a later date Paroxysmal atrial tachycardia--currently normal sinus -Consult medical assistant instructor appreciated, S/P electrophysiology study and ablation which was successful -Will continue to hold amiodarone per cardiology recs -Pt to f/u with Dr. Cedeño in 2 weeks or sooner if symptoms recur which may result in a second ablation -Pt had an echo in December 2015 -EF 55-60% -LV normal in size and motion -Grade I diastolic failure ESRD requiring dialysis--currently uses HD, PD cath removed -Consult histology tech was appreciated, continue regular dialysis schedule DM II--last HgbA1c checked on 05/04/16 was 4.8 -Insulin sliding scale -Check BSGs q ac and qhs Hypothyroidism -TSH was elevated at 7.21, free T4 WNL -Continue home Synthroid 100 mcg PO qd, can f/u with PCP Hx of A fib -Continue Eliquis 5 mg PO BID DVT prophylaxis -Eliquis Dispo -BP has been stable with only a few low diastolic readings this am prior to discharge. Medically stable for discharge home with services. Resume home medications except for amiodarone and finasteride. F/u with PCP in 1 week. F/ u with Dr. Cedeño in 2 weeks. Total Time Spent: Greater than 30 minutes This includes examination of the patient, discharge planning, medication reconciliation, and communication with other providers. (Jessie Perdue ., PA-C) Discharge Instructions Please refer to the electronic Patient Visit Report (Discharge Instructions) for additional information. (Jessie Perdue ., PA-C) Additional Copies To RV. Hudson MD Reviewed: Pt Seen/Exam by Me (Chelita Reza, ) History Pt is doing well. Apparently plan was for d/c yesterday, however pt's 24hr caregivers were unable to be reached. Tolerating PO. Denies SOB, chest pain. Feeling back to his usual baseline. Agree with HPI/ROS as noted. (Chelita Reza, ) General Appearance: WD/WN, no apparent distress Respiratory: normal breath sounds, no respiratory distress Cardiovascular: normal peripheral pulses, regular rate, rhythm Gastrointestinal: non tender, soft Extremities: non-tender, no pedal edema Neurologic/Psychiatric: alert, oriented x 3 Skin Characteristics: normal color, warm/dry (Chelita Reza, ) Assessment/Plan Agree with plan as outlined above. HypoTN with acute adrenal insufficiency with HD Finished steroid taper during admission (Chelita Reza, )
[2016-08-14] MEDS ORDERED: ESCI10TA17 PO (00:53)
[2016-08-14] MEDS ORDERED: APIX1TAB3 PO (00:53)
[2016-08-14] MEDS ORDERED: B COLIQ PO (00:58)
[2016-08-14] MEDS ORDERED: CALC667C4 PO (08:57)
[2016-08-14] MEDS ORDERED: PRLSR20 PO (11:59)
[2016-08-14] MEDS ORDERED: LCTX PO (11:59)
[2016-08-14] MEDS ORDERED: GABA1CAP5 PO (12:09)
[2016-08-14] MEDS ORDERED: OXYC-57 PO (16:11)
[2016-08-29] MEDS ORDERED: OXYC-57 PO (14:32)
[2016-08-29] MEDS ORDERED: MIDO2.5T PO (14:41)
[2017-02-03] MEDS ORDERED: OXYC-57 PO (09:24)
[2017-02-03] MEDS ORDERED: PRLSR20 PO ×2 (09:24)
[2017-02-03] MEDS ORDERED: PRMT25 PO (09:24)
[2017-02-03] MEDS ORDERED: INDO-22 PO (09:25)
[2017-02-03] MEDS ORDERED: DXY100 PO (09:25)
[2017-02-08] MEDS ORDERED: ACET325T96 PO (09:05)
[2017-02-08] MEDS ORDERED: LEVO100T PO (11:59)
[2017-02-08] MEDS ORDERED: GABA1CAP5 PO ×2 (12:29→22:08)
[2017-02-08] MEDS ORDERED: POLY1POW2 PO (17:32)
[2017-02-08] MEDS ORDERED: BISA10SU3 PR (17:32)
[2017-02-08] MEDS ORDERED: SODIENE PR (17:32)
[2017-02-08] MEDS ORDERED: LATA0.5S OPL (17:32)
[2017-02-08] MEDS ORDERED: FINA5TAB PO ×2 (17:32→22:25)
[2017-02-12] MEDS ORDERED: APIX1TAB3 PO ×2 (10:37)
== END 2016-06-25 14:40 | disposition home health service (06) | DRG 981 ==
LOC: ENRESERVTM → ENRESERVDT → EDBD 14:14 → C.EDB 14:15 → C.MSICU 16:37 → C.2T 06-22 12:34
PROVIDERS: ADMIT Hospitalist; ATTEND Family Medicine
PROC: 05HA33Z Insertion of Infusion Device into Left Brachial Vein, Percutaneous Approach (ICD-10-PCS; 2016-06-18)
PROC: 05H633Z Insertion of Infusion Device into Left Subclavian Vein, Percutaneous Approach (ICD-10-PCS; 2016-06-18)
PROC: 02583ZZ Destruction of Conduction Mechanism, Percutaneous Approach (ICD-10-PCS; 2016-06-21)
PROC: 0WPG0YZ Removal of Other Device from Peritoneal Cavity, Open Approach (ICD-10-PCS; principal; 2016-06-22 09:45)
DX: E27.40 Unspecified adrenocortical insufficiency (principal); N18.6 End stage renal disease; I47.1 Supraventricular tachycardia; I95.89 Other hypotension; T85.611A Breakdown (mechanical) of intraperitoneal dialysis catheter, initial encounter; I50.32 Chronic diastolic (congestive) heart failure; I12.0 Hypertensive chronic kidney disease with stage 5 chronic kidney disease or end stage renal disease; A04.7 Enterocolitis due to Clostridium difficile; J98.11 Atelectasis; E86.0 Dehydration; I25.2 Old myocardial infarction; I25.10 Atherosclerotic heart disease of native coronary artery without angina pectoris; I50.9 Heart failure, unspecified; E11.21 Type 2 diabetes mellitus with diabetic nephropathy; E11.319 Type 2 diabetes mellitus with unspecified diabetic retinopathy without macular edema; Z89.512 Acquired absence of left leg below knee; E03.9 Hypothyroidism, unspecified; E11.42 Type 2 diabetes mellitus with diabetic polyneuropathy; E55.9 Vitamin D deficiency, unspecified; Z86.14 Personal history of Methicillin resistant Staphylococcus aureus infection; I69.923 Fluency disorder following unspecified cerebrovascular disease; E78.00 Pure hypercholesterolemia, unspecified; D63.1 Anemia in chronic kidney disease; Y92.129 Unspecified place in nursing home as the place of occurrence of the external cause; Z98.84 Bariatric surgery status; Z89.419 Acquired absence of unspecified great toe; Z96.649 Presence of unspecified artificial hip joint; Y74.2 Prosthetic and other implants, materials and accessory general hospital and personal-use devices associated with adverse incidents; Y84.1 Kidney dialysis as the cause of abnormal reaction of the patient, or of later complication, without mention of misadventure at the time of the procedure

== ENCOUNTER 2016-07-06 21:34 | Emergency (ER) | payer OTHER ==
[~2016-07-06] VITALS: Ht 170.2 cm; Wt 80.3 kg
[~2016-07-06 21:34] MED LIST changes: -AMIO200T4 PO; +BISA10SU3 PR; -FINA5TAB PO; -KFL250 PO; -OXYC2.5T3 PO; -RST15 PO; +TEMA15CA4 PO
[2016-07-06 21:41] VITALS: TEMP 36.8; Ht 170.2 cm; Wt 80.3 kg
[2016-07-06] MEDS ORDERED: ONDANSETRON INJ 2 MG/ML 2 ML VIAL ONE (22:11)
[2016-07-06 22:36] VITALS: O2SAT 95
--- NOTE | 2016-07-06 22:57 | DIAGNOSTIC IMAGING REPORT ---
CHEST ONE VIEW PORTABLE CLINICAL HISTORY: Sepsis dyspnea COMPARISON STUDY: 06/18/2016 FINDINGS: PermCath in the superior vena cava. Lungs are clear. Diaphragms smooth. IMPRESSION: Negative chest. Electronically signed by: Parker Arthur M.D. 07/06/2016 10:56 PM Dictated Date/Time: 07/06/2016 10:55 PM
[2016-07-06 23:26] LABS: BASO % 0.7 %; BASO ABS # 0.03 K/uL (0-0.2); COMPLETE YES; EOS % 3.8 %; IG% 0.2 %; LYMPH % 13.2 %; MEAN CELL VOLUME 95.1 fL (80-100); MEAN CORPUSCULAR HEMOGLOBIN 30.6 pg (25-34); MEAN CORPUSCULAR HGB CONC 32.2 g/dl (32-36); MEAN PLATELET VOLUME 10.9 fL (7.4-10.4); MONO % 13.9 %; NEUT % 68.2 %; PLATELET COUNT 150 K/uL (130-400); RED BLOOD COUNT 4.31 M/uL (4.7-6.1); WHITE BLOOD COUNT 4.53 K/uL (4.8-10.8)
[2016-07-06 23:36] LABS: PARTIAL THROMBOPLASTIN RATIO 1.3
[2016-07-06 23:50] LABS: BUN/CREATININE RATIO 4.1 (10-20); CALCIUM 8.8 mg/dl (8.5-10.1); CREATININE 3.1 mg/dl (0.60-1.40); POTASSIUM 3.7 mmol/L (3.5-5.1)
[2016-07-06 23:53] LABS: ALB/GLOB RATIO 0.7 (0.9-2)
[2016-07-07] MEDS ORDERED: ONDANSETRON INJ 2 MG/ML 2 ML VIAL IV STA (00:56)
--- NOTE | 2016-07-07 01:39 | EMERGENCY ROOM VISIT NOTE ---
History Report prepared by Parrisibraegan: Abram Bergeron Under the Supervision of: Dr. Farida Figueroa DKarsten. First contact with patient: 21:57 Chief Complaint: VOMITING Stated Complaint: VOMITING Nursing Triage Summary: see triage note History of Present Illness The patient is a 60 year old male who presents to the Emergency Room by EMS with complaints of persistent vomiting beginning 7 hours ago. He also complains of a headache, nausea and fever. He is a dialysis patient, and had his most recent dialysis treatment earlier today. The patient states that he felt fine during his dialysis treatment. He denies any diarrhea or abdominal pain. Source of History: patient Onset: 7 hours ago Quality: other (vomiting) Timing: other (persistent) Associated Symptoms: + fevers, + headache, + nausea, No abdominal pain, No diarrhea Review of Systems See HPI for pertinent positives & negatives. A total of 10 systems reviewed and were otherwise negative. Past Medical & Surgical Medical Problems: (1) Anemia (2) Arrhythmia (3) Bacteremia (4) CAD (coronary artery disease) (5) Congestive Heart Failure Nos (6) Depression (7) Diab W Oth Spec Manifest, Type Ii Or Unspec Type, Not Uncntr (8) Diabetic retinopathy (9) DM type 2 (diabetes mellitus, type 2) (10) End stage renal disease (11) ESRD (end stage renal disease) on dialysis (12) Fluency disorder following cerebrovascular accident (13) History of Clostridium difficile colitis (14) History of CVA (cerebrovascular accident) (15) History of GI bleed (16) History of methicillin resistant staphylococcus aureus (MRSA) (17) History of non-ST elevation myocardial infarction (NSTEMI) (18) Hyperkalemia (19) hyperkalemia, ESRD, wrist fx (20) Hyperlipidemia Nec/Nos (21) Hypertension Nos (22) Hypothyroidism Nos (23) Migraine (24) Morbid obesity (25) Peritonitis (26) Polyneuropathy in diabetes (27) Proteinuria (28) Vitamin D deficiency Surgical Problems: (1) Great toe amputation status (2) H/O gastric bypass (3) H/O total hip arthroplasty (4) History of cholecystectomy (5) History of colonoscopy with polypectomy (6) History of left below knee amputation Family History FH: heart disease FATHER FHx: cancer FATHER Hypertension Social History Smoking Status: Never Smoker Alcohol Use: occasionally Drug Use: none Marital Status: single [facility] Status[facility] Occupation Status: disabled Current/Historical Medications Scheduled Apixaban (Eliquis), 5 MG PO Q12 B-Complex W/ C & Folic Acid (Nephronex), 5 ML PO BID Calcium Acetate (Phoslo 667 Mg), 3 CAP PO TIDM Enteral Nutrition Formula (Nepro Carb Steady), 1 CAN PO DAILY Escitalopram (Lexapro), 10 MG PO DAILY Gabapentin (Neurontin), 400 MG PO HS Gabapentin (Neurontin), 800 MG PO 3XWK Gabapentin (Neurontin), 400 MG PO TID Lactobacillus Acidophilus (Lactinex), 1 TAB PO BID Latanoprost 0.005% Oph (Xalatan 0.005% Oph), 1 DROP OPL HS Levothyroxine Sodium (Synthroid), 100 MCG PO DAILY Midodrine (Midodrine HCl), 2.5 MG PO UD Omeprazole (Prilosec), 20 MG PO DAILY Polyethylene Glycol 3350 (Miralax), 17 GM PO UD Scheduled PRN Acetaminophen Tab (Tylenol), 650 MG PO Q6 PRN for Pain or Fever Bisacodyl (Dulcolax), 1 SUPP ND DAILY PRN for Constipation Calcium Acetate (Phoslo 667 Mg), 3 CAP PO TIDM PRN for SNACKS Oxycodone/Acetaminophen 5MG/325MG (Percocet 5MG/325MG), 1 TABLET PO Q4H PRN for Pain Temazepam (Restoril), 15 MG PO HS PRN for Sleep Allergies Coded Allergies: No Known Allergies (Verified , `, 05/01/16) Physical Exam Vital Signs Date Time Temp Pulse Resp B/P Pulse Ox O2 Delivery O2 Flow Rate FiO2 07/07/16 07:12 68 18 122/74 95 Room Air 07/07/16 06:00 68 18 126/81 92 Room Air 07/07/16 05:53 63 07/07/16 04:00 71 18 114/64 92 Room Air 07/07/16 02:00 71 18 111/76 91 Room Air 07/07/16 01:25 74 18 90/56 94 Room Air 07/07/16 00:10 66 18 112/58 92 Room Air 07/06/16 23:07 69 18 94/51 93 Room Air 07/06/16 22:36 95 Room Air 07/06/16 22:08 70 07/06/16 21:41 36.8 72 18 105/82 98 Room Air Physical Exam General: Appears ill. Patient is dry heaving during examination. HEENT: Head - normocephalic and atraumatic Pupils are equal, round, and reactive to light. Extraocular eye muscles are intact, and sclera are anicteric. Nose - moist nasal mucosa without discharge. Mouth - dry buccal mucosa. Oropharynx is nonerythematous and there is no tonsillar exudate or edema noted. Neck: Supple; no JVD, nuchal rigidity, cervical lymphadenopathy, or auscultated bruits. Heart: Regular rate and rhythm. There is a normal S1 and S2 with no murmurs, clicks, or gallops appreciated. Lungs: Clear to auscultation bilaterally with no wheezes, rales, or rhonchi. Abdomen: Soft, completely nontender, nondistended, with good bowel sounds. There are no palpable pulsatile masses or hepatosplenomegaly. There is no guarding, rigidity, or rebound noted. Extremities: No evidence of cyanosis, clubbing, or edema. Left BKA. Skin: Pale;dry with poor turgor. Medical Decision & Procedures ER Provider Diagnostic Interpretation: X-ray results as stated below per interpretation by me and the radiologist: CHEST ONE VIEW PORTABLE FINDINGS: PermCath in the superior vena cava. Lungs are clear. Diaphragms smooth. IMPRESSION: Negative chest. Electronically signed by: Parker Arthur M.D. Laboratory Results 07/06/16 23:15 Red Blood Count 4.31, Mean Corpuscular Volume 95.1, Mean Corpuscular Hemoglobin 30.6, Mean Corpuscular Hemoglobin Concent 32.2, Mean Platelet Volume 10.9, Neutrophils (%) (Auto) 68.2, Lymphocytes (%) (Auto) 13.2, Monocytes (%) (Auto) 13.9, Eosinophils (%) (Auto) 3.8, Basophils (%) (Auto) 0.7, Neutrophils # (Auto ) 3.09, Lymphocytes # (Auto) 0.60, Monocytes # (Auto) 0.63, Eosinophils # (Auto ) 0.17, Basophils # (Auto) 0.03 07/06/16 23:15 Test 07/06/16 23:15 07/06/16 23:19 White Blood Count 4.53 K/uL (4.8-10.8) Red Blood Count 4.31 M/uL (4.7-6.1) Hemoglobin 13.2 g/dL (14.0-18.0) Hematocrit 41.0 % (42-52) Mean Corpuscular Volume 95.1 fL (80-100) Mean Corpuscular Hemoglobin 30.6 pg (25-34) Mean Corpuscular Hemoglobin Concent 32.2 g/dl (32-36) Platelet Count 150 K/uL (130-400) Mean Platelet Volume 10.9 fL (7.4-10.4) Neutrophils (%) (Auto) 68.2 % Lymphocytes (%) (Auto) 13.2 % Monocytes (%) (Auto) 13.9 % Eosinophils (%) (Auto) 3.8 % Basophils (%) (Auto) 0.7 % Neutrophils # (Auto) 3.09 K/uL (1.4-6.5) Lymphocytes # (Auto) 0.60 K/uL (1.2-3.4) Monocytes # (Auto) 0.63 K/uL (0.11-0.59) Eosinophils # (Auto) 0.17 K/uL (0-0.5) Basophils # (Auto) 0.03 K/uL (0-0.2) RDW Standard Deviation 51.3 fL (36.4-46.3) RDW Coefficient of Variation 14.7 % (11.5-14.5) Immature Granulocyte % (Auto) 0.2 % Immature Granulocyte # (Auto) 0.01 K/uL (0.00-0.02) Prothrombin Time 11.0 SECONDS (9.0-12.0) Prothromb Time International Ratio 1.0 (0.9-1.1) Activated Partial Thromboplast Time 33.4 SECONDS (21.0-31.0) Partial Thromboplastin Ratio 1.3 Anion Gap 13.0 mmol/L (3-11) Est Creatinine Clear Calc Drug Dose 26.4 ml/min Estimated GFR () 24.4 Estimated GFR (Non- 21.0 BUN/Creatinine Ratio 4.1 (10-20) Calcium Level 8.8 mg/dl (8.5-10.1) Total Bilirubin 0.7 mg/dl (0.2-1) Aspartate Amino Transf (AST/SGOT) 19 U/L (15-37) Alanine Aminotransferase (ALT/SGPT) 37 U/L (12-78) Alkaline Phosphatase 147 U/L (45-117) Total Protein 7.9 gm/dl (6.4-8.2) Albumin 3.2 gm/dl (3.4-5.0) Globulin 4.7 gm/dl (2.5-4.0) Albumin/Globulin Ratio 0.7 (0.9-2) Bedside Lactic Acid Venous 1.32 mmol/L (0.90-1.70) Laboratory results per my review. Medications Administered Medications (Trade) Dose Ordered Sig/Rigoberto Route Start Time Stop Time Status Last Admin Dose Admin Ondansetron HCl (Zofran Inj) 4 mg STK-MED ONCE .ROUTE 07/06/16 22:11 07/06/16 22:13 DC 07/06/16 22:15 4 MG Ondansetron HCl (Zofran Inj) 4 mg NOW STAT IV 07/07/16 00:56 07/07/16 00:58 DC 07/07/16 01:00 4 MG Procedure Medications ordered include: Zofran IV X2 ECG Indication: vomiting Rate (beats per minute): 70 Rhythm: normal sinus Findings: 1st degree AV block, T-wave inversion (AVL) Comparison ECG Date: Jun 22, 2016 Change: T-wave inversions are new. ED Course 0: Past medical records reviewed. The patient was evaluated in room B11. A complete history and physical exam was performed. An IV lock was initiated and labs were drawn as above. A twelve-lead EKG was obtained. 2211: Ordered Zofran Inj 4 mg IV. Upon reevaluation, the patient is resting comfortably. I discussed findings and results with him. He verbalized agreement of the treatment plan. The patient tried to drink water became nauseated again. He was given a second 4 mg dose of IV Zofran. There was some extensive conversation with the patient as well as case management about him being discharged home once he was feeling better. I reviewed the laboratory studies with the patient he states that he feels okay but does not believe that he can be discharged home at this time as his around- the-clock caretakers are not there. He states that there will be another club director there around 7 AM. For this reason, the patient will stay here in the emergency department until that time. I discussed the case with Dr. Gandhi at change of shift and he will see that the patient is discharged if he is feeling better. Medical Decision The patient is a 60 year old male who presents to the ED with vomiting. Differential diagnosis includes cardiac ischemia, viral illness, sepsis, hyperkalemia, dehydration, as well as other etiologies were considered. Laboratory studies: White count 4.5. Hemoglobin 13.2. Hematocrit 41. Lactic acid 1.3. BUN 13. Creatinine 3.1. Sodium 135. LFTs normal. This is a 60-year-old male dialysis patient who presents to the emergency department with fairly sudden onset of vomiting this evening. He was unable keep anything down. The patient denies any abdominal pain throughout this event and is currently pain-free. The patient is a dialysis patient. He did receive dialysis earlier in the day. He was feeling fine at that time. He had no further episodes of vomiting or diarrhea while here in the emergency department. He was able to drink liquids. He will rest here until he can be discharged home Impression Primary Impression: Vomiting Scribe Attestation The scribe's documentation has been prepared under my direction and personally reviewed by me in its entirety. I confirm that the note above accurately reflects all work, treatment, procedures, and medical decision making performed by me. Departure Information Dispostion Home / Self-Care Referrals RV. Hudson MD (PCP) Forms HOME CARE DOCUMENTATION FORM, IMPORTANT VISIT INFORMATION Patient Instructions ED Vomiting Diarrhea Nonspecific Ad, My [facility] Additional Instructions Rest. Take plenty of clear liquids and a bland diet. If the vomiting continues, follow up with the PCP
[2016-07-07] MEDS ORDERED: LIDOCAINE/EPINEPH/TETRACAINE 1 EA SYR ONE (05:50)
--- NOTE | 2016-07-07 06:11 | EMERGENCY ROOM VISIT NOTE ---
ED Visit Note RN reports that patient is to be discharged shortly. The next shift of home care workers arrives at 7 AM in a wheelchair and has been arranged.
[2016-07-07 07:12] VITALS: BP 122/74; PULSE 68; O2SAT 95
[2016-08-14] MEDS ORDERED: ESCI10TA17 PO (00:53)
[2016-08-14] MEDS ORDERED: APIX1TAB3 PO (00:53)
[2016-08-14] MEDS ORDERED: B COLIQ PO (00:58)
[2016-08-14] MEDS ORDERED: CALC667C4 PO (08:57)
[2016-08-14] MEDS ORDERED: LCTX PO (11:59)
[2016-08-14] MEDS ORDERED: PRLSR20 PO (11:59)
[2016-08-14] MEDS ORDERED: GABA1CAP5 PO (12:09)
[2016-08-14] MEDS ORDERED: OXYC-57 PO (16:11)
[2016-08-29] MEDS ORDERED: OXYC-57 PO (14:32)
[2016-08-29] MEDS ORDERED: MIDO2.5T PO (14:41)
[2017-02-03] MEDS ORDERED: PRMT25 PO (09:24)
[2017-02-03] MEDS ORDERED: OXYC-57 PO (09:24)
[2017-02-03] MEDS ORDERED: PRLSR20 PO ×2 (09:24)
[2017-02-03] MEDS ORDERED: DXY100 PO (09:25)
[2017-02-03] MEDS ORDERED: INDO-22 PO (09:25)
[2017-02-08] MEDS ORDERED: ACET325T96 PO (09:05)
[2017-02-08] MEDS ORDERED: LEVO100T PO (11:59)
[2017-02-08] MEDS ORDERED: GABA1CAP5 PO ×2 (12:29→22:08)
[2017-02-08] MEDS ORDERED: SODIENE PR (17:32)
[2017-02-08] MEDS ORDERED: POLY1POW2 PO (17:32)
[2017-02-08] MEDS ORDERED: LATA0.5S OPL (17:32)
[2017-02-08] MEDS ORDERED: FINA5TAB PO ×2 (17:32→22:25)
[2017-02-08] MEDS ORDERED: BISA10SU3 PR (17:32)
[2017-02-12] MEDS ORDERED: APIX1TAB3 PO ×2 (10:37)
== END 2016-07-07 07:28 | disposition home or self-care (01) ==
LOC: EDBD 21:34 → C.EDB 21:35
DX: R11.2 Nausea with vomiting, unspecified (principal); R51 Headache; R50.9 Fever, unspecified; I44.0 Atrioventricular block, first degree; I25.10 Atherosclerotic heart disease of native coronary artery without angina pectoris; F32.9 Major depressive disorder, single episode, unspecified; E11.9 Type 2 diabetes mellitus without complications; N18.6 End stage renal disease; E55.9 Vitamin D deficiency, unspecified; E78.5 Hyperlipidemia, unspecified; E03.9 Hypothyroidism, unspecified; I12.0 Hypertensive chronic kidney disease with stage 5 chronic kidney disease or end stage renal disease; Z79.899 Other long term (current) drug therapy; Z99.2 Dependence on renal dialysis; Z86.14 Personal history of Methicillin resistant Staphylococcus aureus infection; Z86.73 Personal history of transient ischemic attack (TIA), and cerebral infarction without residual deficits; I25.2 Old myocardial infarction; Z82.49 Family history of ischemic heart disease and other diseases of the circulatory system

== ENCOUNTER 2016-07-20 15:36 | Inpatient (IN) | payer OTHER ==
[~2016-07-20] VITALS: Ht 170.2 cm; Wt 81.1 kg
[2016-07-20] MEDS ORDERED: SODIUM CHLORIDE 0.9% 1000ML 1,000 ML IV STA ×2 (15:52→16:44)
[2016-07-20] MEDS ORDERED: SODIUM CHLORIDE 0.9% 1000ML 2,000 ML IV STA (15:52)
--- NOTE | 2016-07-20 15:55 | EMERGENCY ROOM VISIT NOTE ---
History Report prepared by Jason: Isaac Woods Under the Supervision of: Dr. Gutierrez Palacio M.D. First contact with patient: 15:37 Stated Complaint: DIALYSIS PAT./ POSS. SEPSIS History of Present Illness The patient is a 60 year old male who presents to the Emergency Room with complaints of a near-syncopal episode prior to arrival today. Per EMS, the patient was at dialysis today, and was starting to be treated for a central line infection due to pain at the site, and was given Vancomycin. He then developed hypotension, diaphoresis, and altered mental status. When EMS arrived , the patient was hypotensive, but they were unable to get an oxygen or temperature on him. The patient says he is weak. He denies any chest pain or shortness of breath. He did not take his Midodrine prior to dialysis. He also notes back pain between his shoulder blades, and said this happened last time. Source of History: patient, EMS Onset: Prior to arrival today Position: other (global - near-syncopal event) Timing: other (episode) Associated Symptoms: + back pain, + diaphoresis, + weakness, No SOB, No chest pain Note: Associated symptoms: Altered mental status, hypotensive. Review of Systems See HPI for pertinent positives & negatives. A total of 10 systems reviewed and were otherwise negative. Past Medical & Surgical Medical Problems: (1) Anemia (2) Arrhythmia (3) Bacteremia (4) CAD (coronary artery disease) (5) Congestive Heart Failure Nos (6) Depression (7) Diab W Oth Spec Manifest, Type Ii Or Unspec Type, Not Uncntr (8) Diabetic retinopathy (9) DM type 2 (diabetes mellitus, type 2) (10) End stage renal disease (11) ESRD (end stage renal disease) on dialysis (12) Fluency disorder following cerebrovascular accident (13) History of Clostridium difficile colitis (14) History of CVA (cerebrovascular accident) (15) History of GI bleed (16) History of methicillin resistant staphylococcus aureus (MRSA) (17) History of non-ST elevation myocardial infarction (NSTEMI) (18) Hyperkalemia (19) hyperkalemia, ESRD, wrist fx (20) Hyperlipidemia Nec/Nos (21) Hypertension Nos (22) Hypothyroidism Nos (23) Migraine (24) Morbid obesity (25) Peritonitis (26) Polyneuropathy in diabetes (27) Proteinuria (28) Vitamin D deficiency Surgical Problems: (1) Great toe amputation status (2) H/O gastric bypass (3) H/O total hip arthroplasty (4) History of cholecystectomy (5) History of colonoscopy with polypectomy (6) History of left below knee amputation Family History FH: heart disease FATHER FHx: cancer FATHER Hypertension Social History Smoking Status: Never Smoker Alcohol Use: occasionally Drug Use: none Marital Status: single Housing Status: senior care Occupation Status: disabled Current/Historical Medications Scheduled Apixaban (Eliquis), 5 MG PO Q12 B-Complex W/ C & Folic Acid (Nephronex), 5 ML PO BID Calcium Acetate (Phoslo 667 Mg), 3 CAP PO TIDM Escitalopram (Lexapro), 10 MG PO DAILY Finasteride (Proscar), 5 MG PO DAILY Gabapentin (Neurontin), 400 MG PO TID Gabapentin (Gabapentin), 400 MG PO HS Lactobacillus Acidophilus (Lactinex), 1 TAB PO BID Latanoprost 0.005% Oph (Xalatan 0.005% Oph), 1 DROP OPL HS Levothyroxine Sodium (Synthroid), 100 MCG PO DAILY Midodrine (Midodrine HCl), 2.5 MG PO UD Omeprazole (Prilosec), 20 MG PO DAILY Polyethylene Glycol 3350 (Miralax), 17 GM PO UD Sucralfate (Sucralfate), 1 GM PO QID Scheduled PRN Acetaminophen Tab (Tylenol), 650 MG PO Q6 PRN for Pain or Fever Bisacodyl (Dulcolax), 1 SUPP OK DAILY PRN for Constipation Calcium Acetate (Phoslo 667 Mg), 1 CAP PO DIRECTED PRN for SNACKS Oxycodone/Acetaminophen 5MG/325MG (Percocet 5MG/325MG), 1 TABLET PO Q4H PRN for Pain Allergies Coded Allergies: No Known Allergies (Verified , `, 05/01/16) Physical Exam Vital Signs Date Time Temp Pulse Resp B/P Pulse Ox O2 Delivery O2 Flow Rate FiO2 07/20/16 18:38 88/47 07/20/16 18:29 72 93 07/20/16 18:24 71 94 07/20/16 18:13 94/54 07/20/16 18:09 72 16 88 07/20/16 18:04 73 15 07/20/16 17:58 92/49 07/20/16 17:49 76 18 07/20/16 17:44 88/55 07/20/16 17:41 73 18 07/20/16 17:28 100/58 07/20/16 17:26 75 14 07/20/16 17:21 72 17 93 07/20/16 17:15 81/55 07/20/16 17:14 57/21 07/20/16 17:06 73 25 07/20/16 17:01 114/49 07/20/16 16:51 80 17 07/20/16 16:43 67/23 07/20/16 16:36 75 12 07/20/16 16:28 61/34 07/20/16 16:26 64/32 07/20/16 16:23 75 14 07/20/16 16:21 77 15 07/20/16 16:19 43/30 07/20/16 16:17 65/25 07/20/16 16:15 81 94 07/20/16 16:13 46/36 07/20/16 16:09 51/24 07/20/16 16:06 92 13 07/20/16 16:03 53/34 07/20/16 15:59 36.5 99 18 59/45 94 Room Air 07/20/16 15:59 75/22 07/20/16 15:56 59/45 07/20/16 15:51 98 24 91 07/20/16 15:47 99 07/20/16 15:46 58/38 07/20/16 15:44 89 07/20/16 15:43 68/22 Physical Exam GENERAL: Patient is chronically unwell appearing and mildly nauseous appearing. Has a port in right upper chest. HEENT: No acute trauma, normocephalic atraumatic, dehydrated appearing with dry mucous membranes, no nasal congestion, no scleral icterus. NECK: No stridor, no adenopathy, no meningismus, trachea is midline. LUNGS: No dyspnea. Clear to auscultation and equal bilaterally. No wheeze, no rhonchi. HEART: Regular rate and rhythm. No murmurs, rubs, gallops appreciated. ABDOMEN: Soft, nontender, bowel sounds positive, no masses appreciated, no peritonitis. BACK: No midline tenderness, no CVA tenderness EXTREMITIES: Normal motion all extremities, no cyanosis, no edema. Left lower leg amputation. NEUROLOGIC: Alert and oriented, no acute motor or sensory deficits, no focal weakness, cranial nerves grossly intact. SKIN: No rash, no jaundice, no diaphoresis. Medical Decision & Procedures ER Provider Diagnostic Interpretation: X ray results are stated below per my interpretation and the radiologist's interpretation. CHEST ONE VIEW PORTABLE CLINICAL HISTORY: fever dyspnea COMPARISON STUDY: 07/06/2016 FINDINGS: Small right perihilar infiltrate. PermCath in superior vena cava. Lungs otherwise are clear. IMPRESSION: Small parenchymal infiltrate right perihilar region Electronically signed by: Parker Arthur M.D. 07/20/2016 4:55 PM Dictated Date/Time: 07/20/2016 4:54 PM Laboratory Results 07/20/16 16:39 Red Blood Count 3.99, Mean Corpuscular Volume 95.0, Mean Corpuscular Hemoglobin 29.1, Mean Corpuscular Hemoglobin Concent 30.6, Mean Platelet Volume 10.8, Neutrophils (%) (Auto) 76.8, Lymphocytes (%) (Auto) 7.4, Monocytes (%) (Auto) 14.8, Eosinophils (%) (Auto) 0.4, Basophils (%) (Auto) 0.2, Neutrophils # (Auto ) 3.94, Lymphocytes # (Auto) 0.38, Monocytes # (Auto) 0.76, Eosinophils # (Auto ) 0.02, Basophils # (Auto) 0.01 07/20/16 16:39 Test 07/20/16 15:45 07/20/16 16:38 07/20/16 16:39 Bedside Lactic Acid Venous 4.01 mmol/L (0.90-1.70) White Blood Count 5.13 K/uL (4.8-10.8) Red Blood Count 3.99 M/uL (4.7-6.1) Hemoglobin 11.6 g/dL (14.0-18.0) Hematocrit 37.9 % (42-52) Mean Corpuscular Volume 95.0 fL (80-100) Mean Corpuscular Hemoglobin 29.1 pg (25-34) Mean Corpuscular Hemoglobin Concent 30.6 g/dl (32-36) Platelet Count 136 K/uL (130-400) Mean Platelet Volume 10.8 fL (7.4-10.4) Neutrophils (%) (Auto) 76.8 % Lymphocytes (%) (Auto) 7.4 % Monocytes (%) (Auto) 14.8 % Eosinophils (%) (Auto) 0.4 % Basophils (%) (Auto) 0.2 % Neutrophils # (Auto) 3.94 K/uL (1.4-6.5) Lymphocytes # (Auto) 0.38 K/uL (1.2-3.4) Monocytes # (Auto) 0.76 K/uL (0.11-0.59) Eosinophils # (Auto) 0.02 K/uL (0-0.5) Basophils # (Auto) 0.01 K/uL (0-0.2) RDW Standard Deviation 51.1 fL (36.4-46.3) RDW Coefficient of Variation 14.6 % (11.5-14.5) Immature Granulocyte % (Auto) 0.4 % Immature Granulocyte # (Auto) 0.02 K/uL (0.00-0.02) Nucleated RBC Absolute Count (auto) 0.04 K/uL (0-0) Nucleated Red Blood Cells % 0.7 % Anion Gap 19.0 mmol/L (3-11) Est Creatinine Clear Calc Drug Dose 19.9 ml/min Estimated GFR () 17.4 Estimated GFR (Non- 15.0 BUN/Creatinine Ratio 8.8 (10-20) Calcium Level 7.6 mg/dl (8.5-10.1) Magnesium Level 2.1 mg/dl (1.8-2.4) Total Bilirubin 0.4 mg/dl (0.2-1) Direct Bilirubin 0.1 mg/dl (0-0.2) Aspartate Amino Transf (AST/SGOT) 17 U/L (15-37) Alanine Aminotransferase (ALT/SGPT) 21 U/L (12-78) Alkaline Phosphatase 110 U/L (45-117) Total Creatine Kinase 160 U/L (39-308) Creatine Kinase MB 1.1 ng/ml (0.5-3.6) Creatine Kinase MB Ratio 0.7 (0-3.0) Troponin I < 0.015 ng/ml (0-0.045) Total Protein 7.3 gm/dl (6.4-8.2) Albumin 2.8 gm/dl (3.4-5.0) Lipase 150 U/L (73-393) Laboratory results as reviewed by me. Medications Administered Medications (Trade) Dose Ordered Sig/Rigoberto Route Start Time Stop Time Status Last Admin Dose Admin Sodium Chloride (Nss 1000ml) 1,000 ml @ 999 mls/hr Q1H1M STAT IV 07/20/16 15:52 07/20/16 16:52 DC 07/20/16 16:04 999 MLS/HR Albumin Human (Albumin 25%) 25 gm NOW IV 07/20/16 16:15 07/23/16 16:14 07/20/16 16:15 25 GM Hydrocortisone Sodium Succinate (Solu-Cortef IV) 100 mg NOW STAT IV 07/20/16 16:01 07/20/16 16:03 DC 07/20/16 16:08 100 MG Midodrine 2.5 mg 2.5 mg NOW STAT PO 07/20/16 16:14 07/20/16 16:15 DC 07/20/16 16:57 2.5 MG Sodium Chloride (Nss 1000ml) 1,000 ml @ 999 mls/hr Q1H1M STAT IV 07/20/16 16:44 07/20/16 17:44 DC 07/20/16 16:58 999 MLS/HR Piperacillin Sod/ Tazobactam Sod (Zosyn Iv) 4.5 gm NOW STAT IV 07/20/16 17:02 07/20/16 17:03 DC 07/20/16 17:24 4.5 GM Acetaminophen (Tylenol Tab) 650 mg STK-MED ONCE .ROUTE 07/20/16 17:35 07/20/16 17:38 DC 07/20/16 17:35 650 MG ECG Indication: other (near-syncopal episode) Rate (beats per minute): 97 Rhythm: normal sinus Findings: 1st degree AV block (previously noted), other (mild anterior ST changes without STEMI nor acute ischemia, QTC of 464) ED Course 1537: The patient was evaluated in room C10. A complete history and physical exam was performed. 1552: I reevaluated the patient and his blood pressure is 58/36. I paged critical care and the patient is going to get 2 large bore IVs. I said that if they cannot get it, then they should start getting fluids through the patient's central line. 1552: Ordered NSS 1000 ml @ 999 mls/hr IV, NSS 2000 ml @ 999 mls/hr IV. 1600: I discussed the patient at bedside with Dr. Prashant JONES critical care - he suggests giving a single liter of fluid and 25 grams of albumin. 1601: Ordered Solu-Cortef IV 100 mg IV. 1614: Ordered Proamatine Tab 2.5 mg PO. 1615: Ordered Albumin 25% 25 gm IV. 1633: I reevaluated the patient and his blood pressure is up to 61/41. He is still hypotensive. He notes that his back pain has resolved. 1647: I reevaluated the patient and he says he is feeling better. His blood pressure is now 67/25. 1702: Ordered Zosyn IV 4.5 gm IV. 1705: The patient has had a liter and a half of fluid, and a half of albumin, and his pressure has improved. 1730: I discussed the patient with Dr. Maddison JONES hospitalist - he will evaluate the patient for further treatment. Medical Decision Differential: Sepsis, Infectious (UTI/Pneumonia/Meningitis/etc), Metabolic/ Electrolyte Abnormality, Cardiac, Hepatic, Endocrine, Toxicologic, Neurologic, amongst other pathologies entertained. 60 yr old male arrives for evaluation for hypotension. Was at dialysis and when finished he awoke, vomiting and felt ill. BP quite low there and transferred here for further evaluation. No fever but with hypotension treated as sepsis given poor baseline status. CXR with reported infiltrate thus zosyn. He was found to have Lactic acidosis as well. Given IV fluids and albumen with improving blood pressure. Also given Hydrocortisone as previously concern for adrenal insufficiency along with his dose of midodrine that did not apparently receive prior to his dialysis. BP improved and patient denying further symptoms. With infiltrate and lactic acid in setting of hypotension treated as septic shock though with BP improved will hold on pressors at this time. EKG looks OK and no further symptoms. CBC looking at baseline. Consults Time Called: -- Consulting Physician: Dr. Julissa JONES critical care Returned Call: 1600 I discussed the patient at bedside with Dr. Prashant JONES critical care - he suggests giving a single liter of fluid and 25 grams of albumin. Additional Consults: Time Called: 1715 Consulted Physician: Dr. Maddison JONES hospitalist Returned Call: 1735 Additional Comments: I discussed the patient with Dr. Maddison JONES hospitalist - he will evaluate the patient for further treatment. Impression Primary Impression: Septic shock Additional Impressions: Pneumonia involving right lung Lactic acidosis Scribe Attestation The scribe's documentation has been prepared under my direction and personally reviewed by me in its entirety. I confirm that the note above accurately reflects all work, treatment, procedures, and medical decision making performed by me. Departure Information Dispostion Being Evaluated By Hospitalist Referrals RV. Hudson MD (PCP) Problem Qualifiers Additional Impressions: Pneumonia involving right lung Pneumonia type: due to unspecified organism Lung location: upper lobe of lung Qualified Codes: J18.1 - Lobar pneumonia, unspecified organism
[2016-07-20 15:59] VITALS: Ht 170.2 cm; Wt 81.1 kg
[2016-07-20] MEDS ORDERED: HYDROCORTISONE SOD SUCCINATE 100 MG/2 ML VIAL IV STA (16:01)
[2016-07-20] MEDS ORDERED: MIDODRINE 2.5 MG TAB PO STA (16:14)
[2016-07-20] MEDS ORDERED: ALBUMIN HUMAN 25% 12.5 GM/50 ML VIAL IV SCH (16:15)
--- NOTE | 2016-07-20 16:56 | DIAGNOSTIC IMAGING REPORT ---
CHEST ONE VIEW PORTABLE CLINICAL HISTORY: fever dyspnea COMPARISON STUDY: 07/06/2016 FINDINGS: Small right perihilar infiltrate. PermCath in superior vena cava. Lungs otherwise are clear. IMPRESSION: Small parenchymal infiltrate right perihilar region Electronically signed by: Parker Arthur M.D. 07/20/2016 4:55 PM Dictated Date/Time: 07/20/2016 4:54 PM
[2016-07-20] MEDS ORDERED: PIPERACILLIN/TAZOBACTAM 4.5 GM/100ML D5W IV STA (17:02)
[2016-07-20 17:06] LABS: BASO % 0.2 %; BASO ABS # 0.01 K/uL (0-0.2); COMPLETE YES; EOS % 0.4 %; HEMATOCRIT 37.9 % (42-52); IG% 0.4 %; LYMPH % 7.4 %; LYMPH ABS # 0.38 K/uL (1.2-3.4); MEAN CORPUSCULAR HEMOGLOBIN 29.1 pg (25-34); MEAN CORPUSCULAR HGB CONC 30.6 g/dl (32-36); MEAN PLATELET VOLUME 10.8 fL (7.4-10.4); MONO % 14.8 %; NEUT % 76.8 %; PLATELET COUNT 136 K/uL (130-400); RED BLOOD COUNT 3.99 M/uL (4.7-6.1); WHITE BLOOD COUNT 5.13 K/uL (4.8-10.8)
[2016-07-20] MEDS ORDERED: FINA5TAB PO (17:16)
[2016-07-20] MEDS ORDERED: ACETAMINOPHEN 325 MG TAB ONE (17:35)
[2016-07-20] MEDS ORDERED: NURSING VERBAL MED ORDER ONE (17:45)
[2016-07-20] MEDS ORDERED: BISACODYL 10 MG SUPP PR PRN (18:15)
[2016-07-20] MEDS ORDERED: CALCIUM ACETATE 667MG GELCAP PO PRN (18:15)
[2016-07-20] MEDS ORDERED: ACETAMINOPHEN 325 MG TAB PO PRN (18:15)
[2016-07-20] MEDS ORDERED: ONDANSETRON INJ 2 MG/ML 2 ML VIAL IV PRN (18:15)
[2016-07-20 18:19] LABS: ALT/SGPT 21 U/L (12-78); AST/SGOT 17 U/L (15-37); BLOOD UREA NITROGEN 36 mg/dl (7-18); BUN/CREATININE RATIO 8.8 (10-20); CALCIUM 7.6 mg/dl (8.5-10.1); CARBON DIOXIDE 18 mmol/L (21-32); CHLORIDE 102 mmol/L (98-107); GLUCOSE 168 mg/dl (70-99); MAGNESIUM 2.1 mg/dl (1.8-2.4); POTASSIUM 4.2 mmol/L (3.5-5.1); SODIUM 139 mmol/L (136-145)
[2016-07-20 18:23] LABS: ALKALINE PHOSPHATASE 110 U/L (45-117); CKMB/CK RATIO 0.7 (0-3.0)
[2016-07-20 19:03] VITALS: O2SAT 94
[2016-07-20 19:05] VITALS: BP 81/43; PULSE 67; TEMP 36.5; O2SAT 94
--- NOTE | 2016-07-20 19:18 | History and Physical ---
History & Physical Date & Time of Service: Jul 20, 2016 at 18:30 Chief Complaint: Dialysis Pat./ Poss. Sepsis Primary Care Physician: RV. Hudson MD History of Present Illness Source: patient This is a 60 y/o male with PMHx of hypotension, ESRD requiring dialysis, DMII, CAD, hypothyroidism, A fib and depression presented to the ED complaining of hypotension, vomiting and lightheadedness. Patient states that he was at dialysis and he was not "feeling well". He was nauseated and vomit 1X there. Didn't notice any blood. He also complains of generalized body aches, mostly on b/l shoulder and back. Complains of headache and weakness. Per patient prior today he was doing well. Per EMS, the patient was at dialysis today, and was starting to be treated for a central line infection due to pain at the site, and was given Vancomycin. He then developed hypotension, diaphoresis, and altered mental status. When EMS arrived, the patient was hypotensive, but they were unable to get an oxygen or temperature on him. Reportedly he didn't take Midodrine today prior to dialysis. Currently he denies SOB, chest pain, abdominal pain, diarrhea, constipation, or any other weakness. Past Medical/Surgical History Medical Problems: (1) Anemia Status: Chronic (2) CAD (coronary artery disease) Permanent Comment: per records- had acute [place] in 07/2001 and 03/2010. 40% LAD and 30% circ obstruction noted in records- unknown date of cath. 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 (10) History of Clostridium difficile colitis Status: Chronic (11) History of CVA (cerebrovascular accident) Status: Chronic (12) History of GI bleed Permanent Comment: EGD 02/08/15- ulceration at gastrojejunal anastomosis from bastric bypass Colonoscopy 02/08/15- internal hemorrhoids Status: Chronic (13) History of methicillin resistant staphylococcus aureus (MRSA) Status: Chronic (14) History of non-ST elevation myocardial infarction (NSTEMI) Status: Chronic (15) Hyperlipidemia Nec/Nos Status: Chronic (16) Hypertension Nos Status: Chronic (17) Hypothyroidism Nos Status: Chronic (18) Migraine Status: Chronic (19) Morbid obesity Status: Chronic (20) Polyneuropathy in diabetes Status: Chronic (21) Proteinuria Status: Chronic (22) Vitamin D deficiency Status: Chronic Surgical Problems: (1) Great toe amputation status Status: Resolved (2) H/O gastric bypass Status: Chronic (3) H/O total hip arthroplasty Status: Chronic (4) History of cholecystectomy Status: Chronic (5) History of colonoscopy with polypectomy Permanent Comment: 09/22/2014- adenomatous polyps Status: Chronic (6) History of left below knee amputation Status: Chronic Family History FH: heart disease FATHER FHx: cancer FATHER Hypertension Social History Smoking Status: Never Smoker Alcohol Use: occasionally Drug Use: none Marital Status: single Housing status: lives alone, other Occupational Status: disabled Multi-Drug Resistant Organisms History of MDRO: Yes Type of MDRO: MRSA Allergies Coded Allergies: No Known Allergies (Verified , `, 05/01/16) Home Medications Scheduled Apixaban (Eliquis), 5 MG PO Q12 B-Complex W/ C & Folic Acid (Nephronex), 5 ML PO BID Calcium Acetate (Phoslo 667 Mg), 3 CAP PO TIDM Escitalopram (Lexapro), 10 MG PO DAILY Finasteride (Proscar), 5 MG PO DAILY Gabapentin (Neurontin), 400 MG PO TID Gabapentin (Gabapentin), 400 MG PO HS Lactobacillus Acidophilus (Lactinex), 1 TAB PO BID Latanoprost 0.005% Oph (Xalatan 0.005% Oph), 1 DROP OPL HS Levothyroxine Sodium (Synthroid), 100 MCG PO DAILY Midodrine (Midodrine HCl), 2.5 MG PO UD Omeprazole (Prilosec), 20 MG PO DAILY Polyethylene Glycol 3350 (Miralax), 17 GM PO UD Sucralfate (Sucralfate), 1 GM PO QID Scheduled PRN Acetaminophen Tab (Tylenol), 650 MG PO Q6 PRN for Pain or Fever Bisacodyl (Dulcolax), 1 SUPP [place] DAILY PRN for Constipation Calcium Acetate (Phoslo 667 Mg), 1 CAP PO DIRECTED PRN for SNACKS Oxycodone/Acetaminophen 5MG/325MG (Percocet 5MG/325MG), 1 TABLET PO Q4H PRN for Pain Review of Systems Constitutional: + problem reported (lightheadedness), No chills, No fever ENT: No nasal symptoms, No sore throat Respiratory: No cough, No dyspnea at rest, No dyspnea on exertion, No shortness of breath Cardiovascular: No chest pain, No claudication, No edema, No orthopnea, No palpitations Abdomen: + nausea, + vomiting, No GI bleeding, No constipation, No diarrhea, No pain Musculoskeletal: + muscle pain (generalized body aches) Genitourinary - Male: No dysuria Neurologic: + weakness (had stroke and he has residual left hand weakness) Endocrine: + fatigue Integumentary: No rash Physical Exam Vital Signs Date Time Temp Pulse Resp B/P Pulse Ox O2 Delivery O2 Flow Rate FiO2 07/20/16 18:04 73 15 07/20/16 17:58 92/49 07/20/16 17:49 76 18 07/20/16 17:44 88/55 07/20/16 17:41 73 18 07/20/16 17:28 100/58 07/20/16 17:26 75 14 07/20/16 17:21 72 17 93 07/20/16 17:15 81/55 07/20/16 17:14 57/21 07/20/16 17:06 73 25 07/20/16 17:01 114/49 07/20/16 16:51 80 17 07/20/16 16:43 67/23 07/20/16 16:36 75 12 07/20/16 16:28 61/34 07/20/16 16:26 64/32 07/20/16 16:23 75 14 07/20/16 16:21 77 15 07/20/16 16:19 43/30 07/20/16 16:17 65/25 07/20/16 16:15 81 94 07/20/16 16:13 46/36 07/20/16 16:09 51/24 07/20/16 16:06 92 13 07/20/16 16:03 53/34 07/20/16 15:59 36.5 99 18 59/45 94 Room Air 07/20/16 15:59 75/22 07/20/16 15:56 59/45 07/20/16 15:51 98 24 91 07/20/16 15:47 99 07/20/16 15:46 58/38 07/20/16 15:44 89 07/20/16 15:43 68/22 General Appearance: no apparent distress Head: normocephalic, atraumatic Neck: supple, trachea midline Respiratory/Chest: chest non-tender, lungs clear, normal breath sounds, no respiratory distress, no accessory muscle use Cardiovascular: regular rate, rhythm, no edema, no murmur, normal peripheral pulses Abdomen/GI: normal bowel sounds, non tender, soft Extremities/Musculoskelatal: no pedal edema, non-tender, + pertinent finding ( left lower leg amputation) Neurologic/Psych: alert, oriented x 3 Skin: normal color, warm/dry, + pertinent finding (flaking of facial skin was noted.) Diagnostics Laboratory Results Results Past 24 Hours Test 07/20/16 15:45 07/20/16 16:38 07/20/16 16:39 Range/Units Bedside Lactic Acid Venous 4.01 0.90-1.70 mmol/L White Blood Count 5.13 4.8-10.8 K/uL Red Blood Count 3.99 4.7-6.1 M/uL Hemoglobin 11.6 14.0-18.0 g/dL Hematocrit 37.9 42-52 % Mean Corpuscular Volume 95.0 80-100 fL Mean Corpuscular Hemoglobin 29.1 25-34 pg Mean Corpuscular Hemoglobin Concent 30.6 32-36 g/dl Platelet Count 136 130-400 K/uL Mean Platelet Volume 10.8 7.4-10.4 fL Neutrophils (%) (Auto) 76.8 % Lymphocytes (%) (Auto) 7.4 % Monocytes (%) (Auto) 14.8 % Eosinophils (%) (Auto) 0.4 % Basophils (%) (Auto) 0.2 % Neutrophils # (Auto) 3.94 1.4-6.5 K/uL Lymphocytes # (Auto) 0.38 1.2-3.4 K/uL Monocytes # (Auto) 0.76 0.11-0.59 K/uL Eosinophils # (Auto) 0.02 0-0.5 K/uL Basophils # (Auto) 0.01 0-0.2 K/uL RDW Standard Deviation 51.1 36.4-46.3 fL RDW Coefficient of Variation 14.6 11.5-14.5 % Immature Granulocyte % (Auto) 0.4 % Immature Granulocyte # (Auto) 0.02 0.00-0.02 K/uL Nucleated RBC Absolute Count (auto) 0.04 0-0 K/uL Nucleated Red Blood Cells % 0.7 % Sodium Level 139 136-145 mmol/L Potassium Level 4.2 3.5-5.1 mmol/L Chloride Level 102 98-107 mmol/L Carbon Dioxide Level 18 21-32 mmol/L Anion Gap 19.0 3-11 mmol/L Blood Urea Nitrogen 36 7-18 mg/dl Creatinine 4.10 0.60-1.40 mg/dl Est Creatinine Clear Calc Drug Dose 19.9 ml/min Estimated GFR () 17.4 Estimated GFR (Non- 15.0 BUN/Creatinine Ratio 8.8 10-20 Random Glucose 168 70-99 mg/dl Calcium Level 7.6 8.5-10.1 mg/dl Magnesium Level 2.1 1.8-2.4 mg/dl Total Bilirubin 0.4 0.2-1 mg/dl Direct Bilirubin 0.1 0-0.2 mg/dl Aspartate Amino Transf (AST/SGOT) 17 15-37 U/L Alanine Aminotransferase (ALT/SGPT) 21 12-78 U/L Alkaline Phosphatase 110 45-117 U/L Total Creatine Kinase 160 39-308 U/L Creatine Kinase MB 1.1 0.5-3.6 ng/ml Creatine Kinase MB Ratio 0.7 0-3.0 Troponin I < 0.015 0-0.045 ng/ml Total Protein 7.3 6.4-8.2 gm/dl Albumin 2.8 3.4-5.0 gm/dl Lipase 150 73-393 U/L Microbiology Results 07/20/16 Blood Culture, Received Pending 07/20/16 Blood Culture, Received Pending Diagnostic Radiology CHEST ONE VIEW PORTABLE CLINICAL HISTORY: fever dyspnea COMPARISON STUDY: 07/06/2016 FINDINGS: Small right perihilar infiltrate. PermCath in superior vena cava. Lungs otherwise are clear. IMPRESSION: Small parenchymal infiltrate right perihilar region Electronically signed by: Parker Arthur M.D. 07/20/2016 4:55 PM Dictated Date/Time: 07/20/2016 4:54 PM The status of this report is Signed. Draft = Not yet reviewed or approved by Radiologist. Signed = Reviewed and approved by Radiologist. <AttendingPhy></AttendingPhy> <FamilyPhy>RV. Hudson MD</ FamilyPhy> <PrimaryPhy>RV. Hudson MD</PrimaryPhy> <UnitNumber> [id number]</UnitNumber> <VisitNumber>[id number] No change from prior EKG Impression Assessment and Plan This is a 60 y/o male with PMHx of hypotension, ESRD requiring dialysis, DMII, CAD, hypothyroidism, A fib and depression presented to the ED complaining of hypotension, vomiting and lightheadedness. 1. Hypotension - Most likely 2/2 dialysis given no clear source of sepsis can be identified , also his lab work ups not indicative of sepsis - WBC is normal, Lactic acid 4.01, BUN 36, Crea 4.1 - BP is improving but still low (current BP is 88/47) - CXR: Small parenchymal infiltrate right perihilar region - s/p 2.5L of fluid in ED. - Hydration with NSS @ 50mls/hr - Blood culture is pending - Continue Midodrine 2.5 mg daily - Patient will be admitted in Tele - Continue to monitor his BP 2. ESRD requiring dialysis - Patient currently on dialysis M, W, and F - Continue with dialysis 3. DMII - on Sliding scale - Current glucose is 168 4. Hypothyroidism - Continue Levothyroxine 100mcg daily 5. Hx of Afib - Continue Eliquis 5mg BID 6. Depression - Lexapro 10mg daily 7. GERD - Protonix 20mg daily - Carafate 1gm QID 8. Neuropathic pain - Continue gabapentin 400mg 9. DVT prophylaxis - Eliquis 5mg BID 10. Code Status - Full code Level of Care Telemetry Resuscitation Status FULL RESUSCITATION VTE Prophylaxis VTE Risk Assessment Done? Y/N: Yes Risk Level: Moderate Given or contraindicated: Other Anticoagulation Note about 45 minutes Assessment and Plan Attending Addendum: I have physically seen and examined this patient, have directed their medical care, have supervised the medical residents activities, and agree with the H&P as noted above, with the following changes: NONE The patient is awake, alert and oriented 3, unkempt appearing, lying in bed and in no acute distress. HEENT--PERRL, EOMI, mucous membranes and oropharynx dry. Neck--supple, no JVD or bruits, thyroid normal, trachea midline, no adenopathy. Heart--normal S1 and S2, no extra beats, no murmurs, rubs or gallops. Lungs--clear bilaterally, no respiratory distress, no accessory muscle use. Abdomen--normal bowel sounds and soft, nontender and nondistended, no hernias or masses, no organomegaly. Extremities--right lower extremity no cyanosis, clubbing or edema. Left BKA. Dermatologic--moderately severe rosacea bilaterally. Neurologic--cranial nerves II through XII grossly intact. Psychiatric--normal affect. Assessment and Plan: Hypotension/dehydration post dialysis/nausea and vomiting postdialysis--the patient is receiving 1/2 L of IV fluid in the emergency department, and will continue normal saline at 50 ML's per hour. His blood pressure has improved, he no longer feels nauseous and had no further vomiting. He likely had too much fluid taken off at dialysis. His laboratories are still pending at this time. We will increase Midodrine from 2.5 by mouth daily to twice a day. CAD/hypertension/CHF--at this point as noted above is actually dehydrated he'll be gently hydrated overnight. Continue Eliquis 5 mg by mouth every 12 hours. Peripheral neuropathy--continue gabapentin 40 mg by mouth 3 times a day and at bedtime. Depression--continue Lexapro 10 mg by mouth daily. BPH--continue finasteride 5 mg by mouth daily. Hypothyroidism--continue levothyroxine sodium 100 g by mouth daily. GERD--change omeprazole 20 mg by mouth daily to pantoprazole 40 mg by mouth daily, and sucralfate 1 g by mouth 4 times a day. Glaucoma continue Xalatan 0.005%, one drop OPL at bedtime. Constipation continue MiraLAX 17 g by mouth daily. End-stage renal disease on hemodialysi-. Was just at dialysis today, continue nephronex , PhosLo and Lactinex as per outpatient.-
[2016-07-20] MEDS: SODIUM CHLORIDE 0.9% 1000ML 1,000 ML IV SCH (20:00)
[2016-07-20] MEDS ORDERED: GLUCAGON FOR INJ 1 MG VIAL SQ PRN (20:15)
[2016-07-20] MEDS ORDERED: GLUCOSE 40% GEL 15 GM TUBE PO PRN (20:15)
[2016-07-20] MEDS ORDERED: DEXTROSE 50% 50 ML SYR IV PRN (20:15)
[2016-07-20] MEDS ORDERED: GLUCOSE 10 TABS/TUBE PO PRN (20:15)
[2016-07-20] MEDS ORDERED: MIDODRINE 2.5 MG TAB PO SCH (21:00)
[2016-07-20] MEDS: GABAPENTIN 400 MG CAP PO SCH ×2 (21:00→21:22)
[2016-07-20] MEDS: SUCRALFATE 1 GM/10 ML UDC PO SCH (21:15)
[2016-07-20] MEDS: LACTOBACILLUS ACIDOPHILUS (FLORANEX) TAB PO SCH (21:16)
[2016-07-20] MEDS: MIDODRINE 2.5 MG TAB PO SCH (21:18)
[2016-07-20] MEDS: NEPHROCAPS PO SCH (21:24)
[2016-07-20] MEDS: INSULIN ASPART 100 UNITS/ML 3 ML PEN SC SCH (21:30)
[2016-07-20] MEDS: APIXABAN 2.5 MG TAB PO SCH (21:32)
[2016-07-21] VITALS (8 sets, daily range): BP systolic 75–92; BP diastolic 44–58; PULSE 65–73; TEMP 36.3–36.7; O2SAT 92–96
[2016-07-21] MEDS: APIXABAN 2.5 MG TAB PO SCH ×2 (07:16→20:45)
[2016-07-21] MEDS: PANTOprazole SOD 40 MG TAB PO SCH (07:17)
[2016-07-21] MEDS: CALCIUM ACETATE 667MG GELCAP PO SCH ×3 (07:17→16:59)
[2016-07-21] MEDS: MIDODRINE 2.5 MG TAB PO SCH ×2 (07:17→20:46)
[2016-07-21] MEDS: FINASTERIDE 5 MG TAB PO SCH (07:17)
[2016-07-21] MEDS: ESCITALOPRAM OXALATE 10 MG TAB PO SCH (07:17)
[2016-07-21] MEDS: LEVOTHYROXINE 100 MCG TAB PO SCH (07:18)
[2016-07-21] MEDS: GABAPENTIN 400 MG CAP PO SCH ×4 (07:18→20:46)
[2016-07-21] MEDS: SUCRALFATE 1 GM/10 ML UDC PO SCH ×4 (07:18→20:45)
[2016-07-21] MEDS: POLYETHYLENE (MIRALAX) 17 GM PACK PO SCH (07:19)
[2016-07-21] MEDS: METRONIDAZOLE 0.75% TOPICAL GEL 45 GM TUBE TOP SCH (07:19)
[2016-07-21] MEDS: LACTOBACILLUS ACIDOPHILUS (FLORANEX) TAB PO SCH ×2 (07:19→20:45)
[2016-07-21] MEDS: INSULIN ASPART 100 UNITS/ML 3 ML PEN SC SCH ×4 (08:12→20:47)
[2016-07-21] MEDS ORDERED: PIPERACILL/TAZOBAC IV 3.375 GM in DEXTROSE 5% 100ML IV ONE (09:00)
[2016-07-21] MEDS ORDERED: PIPERACILL/TAZOBAC CONSULT ACTIVE PRN (09:00)
[2016-07-21] MEDS ORDERED: NON-FORMULARY MEDICATION (Omeprazole (Prilosec) 20 MG) PO SCH (09:00)
[2016-07-21 10:14] LABS: BASO % 0.5 %; BASO ABS # 0.02 K/uL (0-0.2); COMPLETE YES; EOS % 1.2 %; HEMATOCRIT 36.8 % (42-52); IG% 0.2 %; LYMPH ABS # 0.74 K/uL (1.2-3.4); MEAN CELL VOLUME 95.1 fL (80-100); MEAN CORPUSCULAR HEMOGLOBIN 29.5 pg (25-34); MEAN PLATELET VOLUME 10.8 fL (7.4-10.4); NEUT % 71.1 %; PLATELET COUNT 174 K/uL (130-400); RED BLOOD COUNT 3.87 M/uL (4.7-6.1); WHITE BLOOD COUNT 4.12 K/uL (4.8-10.8)
[2016-07-21 10:36] LABS: BUN/CREATININE RATIO 9.9 (10-20); CALCIUM 8.2 mg/dl (8.5-10.1); CREATININE 5.1 mg/dl (0.60-1.40); MAGNESIUM 2.4 mg/dl (1.8-2.4); POTASSIUM 4.4 mmol/L (3.5-5.1)
--- NOTE | 2016-07-21 13:38 | Nephrology Consultation ---
Nephrology Consultation Date of Consultation: Jul 21, 2016. Attending Physician: Dr Kam Requesting Physician: Dr Kam Reason for Consultation: ESRD History of Present Illness 60 year old male admitted after full dialysis tx yesterday w/ symptomatic hypotension concerning for sepsis though no source found so far. PMH remarkable for ESRD on MWF HD via TDC, DM, CAD, hypothyroid, a fib, depression, C diff in the past, chronic hypotension on midodrine w/ HD, past stroke. He was brought from HD where he had lower blood pressures and one episode of NBNB emesis w/ malaise and diffuse musculoskeletal body aches. SBP was in 50-60s on arrival. He had 2.5 L saline in ED and is currently getting NS at 50 mL hourly. He had a dose of vancomycin at dialysis apparently for what sounds by his description like a tunnel infection (not clear how good a historian he is); dialysis center closed and cannot today verify details with them. He states that the musculoskeletal pain improved w/ tylenol. He has significant vascular disease and is reliant on dialysis catheter for access (AVF sites exhausted); recently failed PD and catheter was removed. Pt's body aches improved/ resolved. he denies dyspnea, palpitations, or chest discomfort; had eaten most of lunch when I saw him w/o issue. SBP remains mid 70-low 90s. His midodrine which is usually prior to HD only (but for some reason did not take yesterday) has been increased to 2.5 mg bid and also dose before HD. Blood cxs are NGTD. Past Medical/Surgical History Medical Problems: (1) Abdominal pain Status: Acute (2) C. difficile colitis Status: Acute (3) Colitis Status: Acute (4) Dehydration Status: Acute (5) Fever Status: Acute (6) Infection associated with peritoneal dialysis catheter Status: Acute (7) Lactic acidosis Status: Acute (8) Periumbilical abdominal pain Status: Acute (9) Pneumonia involving right lung Status: Acute (10) Sepsis Status: Acute (11) Septic shock Status: Acute (12) Vomiting Status: Acute (13) Weakness Status: Acute -as per HPI -esrd on HD under Dr. Dewayne Bowman [place] MWF -s/p L BKA -h/o gastric bypass -CAD w/ h/o HF; last 2009 -speech problems after stroke -DM c/b retinopathy -GI bleed -C diff -s/p hip replacement -s/p cholecystectomy -HL Family History FH: heart disease FATHER FHx: cancer FATHER Hypertension Social History Smoking Status: Never Smoker Alcohol Use: occasionally Drug Use: none Marital Status: single Housing Status: [facility] Occupation Status: disabled Allergies Coded Allergies: No Known Allergies (Verified , `, 05/01/16) Medications Current Inpatient Medications Medications (Trade) Dose Ordered Sig/Rigoberto Route Start Time Stop Time Status Last Admin Dose Admin Sodium Chloride (Nss 1000ml) 1,000 ml @ 50 mls/hr Q20H IV 07/20/16 20:00 08/19/16 18:12 07/20/16 20:00 50 MLS/HR Acetaminophen (Tylenol Tab) 650 mg Q4H PRN PO 07/20/16 18:15 08/19/16 18:14 Ondansetron HCl (Zofran Inj) 4 mg Q6H PRN IV 07/20/16 18:15 08/19/16 18:14 Bisacodyl (Dulcolax Supp) 10 mg DAILY PRN WA 07/20/16 18:15 08/19/16 18:14 Calcium Acetate (Phoslo Cap) 667 mg DAILY PRN PO 07/20/16 18:15 08/19/16 18:14 Calcium Acetate (Phoslo Cap) 2,001 mg TIDM PO 07/21/16 07:30 08/20/16 07:59 07/21/16 11:47 2,001 MG Escitalopram Oxalate (Lexapro Tab) 10 mg DAILY PO 07/21/16 09:00 08/20/16 08:59 07/21/16 07:17 10 MG Finasteride (Proscar Tab) 5 mg DAILY PO 07/21/16 09:00 08/20/16 08:59 07/21/16 07:17 5 MG Gabapentin (Neurontin Cap) 400 mg HS PO 07/20/16 21:00 08/19/16 20:59 07/20/16 21:22 400 MG Gabapentin (Neurontin Cap) 400 mg TID PO 07/20/16 21:00 08/19/16 20:59 07/21/16 07:18 400 MG Lactobacillus Acidophilus (Floranex Tab) 1 tab BID PO 07/20/16 21:00 08/19/16 20:59 07/21/16 07:19 1 TAB Levothyroxine Sodium (Synthroid Tab) 100 mcg DAILY PO 07/21/16 09:00 08/20/16 08:59 07/21/16 07:18 100 MCG Sucralfate (Carafate Susp) 1 gm ACHS PO 07/20/16 21:00 08/19/16 20:59 07/21/16 11:46 1 GM Apixaban (Eliquis Tab) 2.5 mg Q12@0900,2100 PO 07/20/16 21:00 08/19/16 20:59 07/21/16 07:16 2.5 MG Vitamin B Complex/ Vit C/Folic Acid (Nephrocaps) 1 cap DAILY@1800 PO 07/20/16 21:00 08/19/16 20:59 07/20/16 21:24 1 CAP Polyethylene (Miralax Powder Packet) 17 gm DAILY PO 07/21/16 09:00 08/20/16 08:59 Pantoprazole Sodium (Protonix Tab) 40 mg QAM PO 07/21/16 09:00 08/20/16 08:59 07/21/16 07:17 40 MG Metronidazole HCl (Metrogel Topical Gel) 1 appln DAILY TOP 07/21/16 09:00 07/31/16 08:59 07/21/16 07:19 1 APPLN Insulin Aspart (novoLOG ASPART) SLIDING SCALE G... ACHS SC 07/20/16 21:00 08/19/16 20:59 07/21/16 11:50 5 UNITS Midodrine (Proamatine Tab) 2.5 mg BID PO 07/20/16 21:00 08/19/16 20:59 07/21/16 07:17 2.5 MG Glucose (Glucose 40% Gel) 15-30 GRAMS 15 GRAMS... UD PRN PO 07/20/16 20:15 08/19/16 20:14 Glucose (Glucose Chew Tab) 4-8 Tablets 4 Tabl... UD PRN PO 07/20/16 20:15 08/19/16 20:14 Dextrose (Dextrose 50% 50ML Syringe) 25-50ML OF 50% DW IV FOR... UD PRN IV 07/20/16 20:15 08/19/16 20:14 Glucagon 1 mg 1 mg UD PRN SQ 07/20/16 20:15 08/19/16 20:14 Piperacillin Sod/ Tazobactam Sod/ Dextrose (Zosyn Iv/D5 100ml) 115 ml @ 28.75 mls/ hr Q12H IV 07/21/16 18:00 07/28/16 17:59 Piperacillin Sod/ Tazobactam Sod (Consult) 1 ea UD PRN N/A 07/21/16 09:00 07/31/16 08:59 Home Meds and Scripts Medications Dose Route/Sig Max Daily Dose Days Date Category Dose Instructions Sucralfate 1 Gm/10 Ml Arianna 1 Gm PO QID 07/20/16 Reported Gabapentin 400 Mg Cap 400 Mg PO HS 07/20/16 Reported TAKE 400MG AT BEDTIME ONLY ON SATURDAY,SATURDAY, SATURDAY Proscar (Finasteride) 5 Mg Tab 5 Mg PO DAILY 07/20/16 Reported Percocet 5MG/325MG (Oxycodone/Acetaminophen) Tab 1 Tablet PO Q4H PRN 06/18/16 Reported PAIN Dulcolax (Bisacodyl) 10 Mg Sup 1 Supp WA DAILY PRN 06/18/16 Reported Nephronex (B-Complex W/ C & Folic Acid) 1 Liq Liq 5 Ml PO BID 03/06/16 Reported GIVE AT 1200 & 2000 Midodrine HCl (Midodrine) 2.5 Mg Tab 2.5 Mg PO UD 03/06/16 Reported GIVE BID EVERY SATURDAY,SATURDAY,FRIDAYS Lexapro (Escitalopram Oxalate) 10 Mg Tab 10 Mg PO DAILY 03/06/16 Reported Eliquis (Apixaban) 5 Mg Tab 5 Mg PO Q12 03/06/16 Reported Phoslo 667 Mg (Calcium Acetate) 667 Mg Cap 1 Cap PO DIRECTED PRN 03/06/16 Reported Tylenol (Acetaminophen) 325 Mg Tab 650 Mg PO Q6 PRN 11/14/15 Reported Phoslo 667 Mg (Calcium Acetate) 667 Mg Cap 3 Cap PO TIDM 11/14/15 Reported Neurontin (Gabapentin) 400 Mg Cap 400 Mg PO TID 07/12/15 Reported SUN,TUE,CARLOS A,SAT Lactinex (Lactobacillus Acidophilus) Tab 1 Tab PO BID 07/12/15 Reported Xalatan 0.005% Oph (Latanoprost) Soln 1 Drop OPL HS 07/12/15 Reported Synthroid (Levothyroxine Sodium) 100 Mcg Tab 100 Mcg PO DAILY 07/12/15 Reported Miralax (Polyethylene Glycol 3350) 1 Pow Pow 17 Gm PO UD 07/12/15 Reported Prilosec (Omeprazole) 20 Mg Capcr 20 Mg PO DAILY 07/12/15 Reported Review of Systems Constitutional: + sweats (at HD prior to transfer here), + weakness, No fever Eyes: No worsening of vision ENT: No hearing loss, No sore throat Respiratory: No cough, No shortness of breath, No wheezing Cardiac: No chest pain, No edema, No orthopnea, No palpitations Abdomen: + see HPI, No constipation, No diarrhea, No nausea, No pain, No vomiting Musculoskeletal: + see HPI, No joint pain, No muscle pain Male : + problem reported (anuric) Neuro: + weakness, No memory loss Psych: No anxiety, No depression symptoms Heme: No abnormal bleeding/bruising Endo: + fatigue Skin: No rash Physical Exam Date Time Temp Pulse Resp B/P Pulse Ox O2 Delivery O2 Flow Rate FiO2 07/21/16 11:20 36.7 69 18 86/58 92 Nasal Cannula 2.0 07/21/16 08:00 Nasal Cannula 2.0 07/21/16 07:55 36.5 66 18 92/58 94 2.0 07/21/16 04:00 36.6 65 18 83/52 94 Nasal Cannula 2.0 07/21/16 04:00 Nasal Cannula 2.0 07/21/16 00:05 Nasal Cannula 2.0 07/21/16 00:00 36.7 73 17 75/44 92 Nasal Cannula 2.0 07/20/16 19:05 36.5 67 18 81/43 94 Nasal Cannula 2.0 07/20/16 19:03 94 Nasal Cannula 2.0 07/20/16 18:38 88/47 07/20/16 18:29 72 93 07/20/16 18:24 71 94 07/20/16 18:13 94/54 07/20/16 18:09 72 16 88 07/20/16 18:04 73 15 07/20/16 17:58 92/49 07/20/16 17:49 76 18 2/17/17 17:44 88/55 07/20/16 17:41 73 18 07/20/16 17:28 100/58 07/20/16 17:26 75 14 07/20/16 17:21 72 17 93 07/20/16 17:15 81/55 07/20/16 17:14 57/21 07/20/16 17:06 73 25 07/20/16 17:01 114/49 07/20/16 16:51 80 17 07/20/16 16:43 67/23 07/20/16 16:36 75 12 07/20/16 16:28 61/34 07/20/16 16:26 64/32 07/20/16 16:23 75 14 07/20/16 16:21 77 15 07/20/16 16:19 43/30 07/20/16 16:17 65/25 07/20/16 16:15 81 94 07/20/16 16:13 46/36 07/20/16 16:09 51/24 07/20/16 16:06 92 13 07/20/16 16:03 53/34 07/20/16 15:59 36.5 99 18 59/45 94 Room Air 07/20/16 15:59 75/22 07/20/16 15:56 59/45 07/20/16 15:51 98 24 91 07/20/16 15:47 99 07/20/16 15:46 58/38 07/20/16 15:44 89 07/20/16 15:43 68/22 24-Hour Column 07/21/16 08:00 Intake Total 504 ml Balance 504 ml General Appearance: WD/WN, no apparent distress, + pertinent finding (appears chronically ill on RA oriented x 3) Eyes: EOMI, + pertinent finding (L pupil dilated/ less responsive ) ENT: hearing grossly normal Neck: supple Respiratory/Chest: + decreased breath sounds (but clear) Cardiovascular: regular rate, rhythm, no edema Abdomen: normal bowel sounds, non tender, soft Extremities: + pertinent finding (L bka) Neurologic/Psych: alert, normal mood/affect (poor historian), oriented x 3, + pertinent finding (L pupil not accommodating) Skin: warm/dry, no rash Diagnostics Last 24 Hours Test 2/17/17 16:38 07/20/16 16:39 07/20/16 20:09 07/20/16 21:37 Bedside Lactic Acid Venous 4.01 mmol/L White Blood Count 5.13 K/uL Red Blood Count 3.99 M/uL Hemoglobin 11.6 g/dL Hematocrit 37.9 % Mean Corpuscular Volume 95.0 fL Mean Corpuscular Hemoglobin 29.1 pg Mean Corpuscular Hemoglobin Concent 30.6 g/dl Platelet Count 136 K/uL Mean Platelet Volume 10.8 fL Neutrophils (%) (Auto) 76.8 % Lymphocytes (%) (Auto) 7.4 % Monocytes (%) (Auto) 14.8 % Eosinophils (%) (Auto) 0.4 % Basophils (%) (Auto) 0.2 % Neutrophils # (Auto) 3.94 K/uL Lymphocytes # (Auto) 0.38 K/uL Monocytes # (Auto) 0.76 K/uL Eosinophils # (Auto) 0.02 K/uL Basophils # (Auto) 0.01 K/uL RDW Standard Deviation 51.1 fL RDW Coefficient of Variation 14.6 % Immature Granulocyte % (Auto) 0.4 % Immature Granulocyte # (Auto) 0.02 K/uL Nucleated RBC Absolute Count (auto) 0.04 K/uL Nucleated Red Blood Cells % 0.7 % Sodium Level 139 mmol/L Potassium Level 4.2 mmol/L Chloride Level 102 mmol/L Carbon Dioxide Level 18 mmol/L Anion Gap 19.0 mmol/L Blood Urea Nitrogen 36 mg/dl Creatinine 4.10 mg/dl Est Creatinine Clear Calc Drug Dose 19.9 ml/min Estimated GFR () 17.4 Estimated GFR (Non- 15.0 BUN/Creatinine Ratio 8.8 Random Glucose 168 mg/dl Calcium Level 7.6 mg/dl Magnesium Level 2.1 mg/dl Total Bilirubin 0.4 mg/dl Direct Bilirubin 0.1 mg/dl Aspartate Amino Transf (AST/SGOT) 17 U/L Alanine Aminotransferase (ALT/SGPT) 21 U/L Alkaline Phosphatase 110 U/L Total Creatine Kinase 160 U/L Creatine Kinase MB 1.1 ng/ml Creatine Kinase MB Ratio 0.7 Troponin I < 0.015 ng/ml Total Protein 7.3 gm/dl Albumin 2.8 gm/dl Lipase 150 U/L Bedside Glucose 121 mg/dl 216 mg/dl Test 07/21/16 06:54 07/21/16 09:49 07/21/16 10:59 07/21/16 12:38 Bedside Glucose 87 mg/dl 135 mg/dl White Blood Count 4.12 K/uL Red Blood Count 3.87 M/uL Hemoglobin 11.4 g/dL Hematocrit 36.8 % Mean Corpuscular Volume 95.1 fL Mean Corpuscular Hemoglobin 29.5 pg Mean Corpuscular Hemoglobin Concent 31.0 g/dl Platelet Count 174 K/uL Mean Platelet Volume 10.8 fL Neutrophils (%) (Auto) 71.1 % Lymphocytes (%) (Auto) 18.0 % Monocytes (%) (Auto) 9.0 % Eosinophils (%) (Auto) 1.2 % Basophils (%) (Auto) 0.5 % Neutrophils # (Auto) 2.93 K/uL Lymphocytes # (Auto) 0.74 K/uL Monocytes # (Auto) 0.37 K/uL Eosinophils # (Auto) 0.05 K/uL Basophils # (Auto) 0.02 K/uL RDW Standard Deviation 50.7 fL RDW Coefficient of Variation 14.7 % Immature Granulocyte % (Auto) 0.2 % Immature Granulocyte # (Auto) 0.01 K/uL Sodium Level 137 mmol/L Potassium Level 4.4 mmol/L Chloride Level 104 mmol/L Carbon Dioxide Level 15 mmol/L Anion Gap 18.0 mmol/L Blood Urea Nitrogen 52 mg/dl Creatinine 5.10 mg/dl Est Creatinine Clear Calc Drug Dose 14.8 ml/min Estimated GFR () 13.4 Estimated GFR (Non- 11.5 BUN/Creatinine Ratio 9.9 Random Glucose 198 mg/dl Calcium Level 8.2 mg/dl Magnesium Level 2.4 mg/dl Diagnostic Radiology: CXR > R perihilar small infiltrate EKG: NSR w/ 1st degree block Assessment & Plan 60 y/o M w/ ESRD on MWF HD and severe vascular disease dependent on TDC for dialysis access and s/p bka, DM, CAD, past stroke, s/p gastric bypass w/ past bleed at anastomosis, s/p C diff in past admitted w/ symptomatic hypotension after dialysis concerning for sepsis though no clear source found. ESRD -next HD 07/23 or as clinical situation dictates; no indication for CUTTER INSPECTOR today >>>need to get update on 07/23 from outpt unit on pending cultures if any, on recent abtc therapy at dialysis and its indications, on recent BP trends >marked acidosis noted on labs, worse than baseline > may need to adjust bicab on tx bath if persistent -current K acceptable; cont nephrocaps Hypotension -f/u pending cxs; on zosyn (C diff hx noted) -current midodrine dose seems reasonable for now -cont current NS (would d/c this evening or in am though) -on 07/23 will get background from outpt unit as above -check TSH w/ am labs Anemia of chronic disease -iron and procrit as indicated w/ HD Renal osteodystrophy -cont phoslo appreciate consult; will follow with you.
[2016-07-21] MEDS: SODIUM CHLORIDE 0.9% 1000ML 1,000 ML IV SCH (16:59)
[2016-07-21] MEDS: NEPHROCAPS PO SCH (17:04)
[2016-07-21] MEDS: PIPERACILL/TAZOBAC IV 3.375 GM in DEXTROSE 5% 100ML 100 ML IV SCH (17:08)
--- NOTE | 2016-07-21 21:52 | Hospitalist Progress Note ---
Hospitalist Progress Note Date of Service Jul 21, 2016. Subjective Pt evaluation today including: conversation w/ patient, physical exam, chart review, lab review, review of studies, review of inpatient medication list PO Intake: jamil po Pt feeling great and wants to go home. No PC no SOB, BPs still in the 80s systolic but he feels fine, no lightheadedness. No cough or sputum production. He doesn't think he got the Vanco at Dialysis and no records here to see if he did or not. Constitutional: No fever Respiratory: No cough Cardiovascular: No chest pain Skin: + color change (around tunneled catheter site) Objective Vital Signs Date Time Temp Pulse Resp B/P Pulse Ox O2 Delivery O2 Flow Rate FiO2 07/21/16 20:00 95 Nasal Cannula 2.0 07/21/16 16:20 36.3 67 20 85/58 95 Nasal Cannula 2.0 07/21/16 16:00 Nasal Cannula 2.0 07/21/16 12:00 Nasal Cannula 2.0 07/21/16 11:20 36.7 69 18 86/58 92 Nasal Cannula 2.0 07/21/16 08:00 Nasal Cannula 2.0 07/21/16 07:55 36.5 66 18 92/58 94 2.0 07/21/16 04:00 36.6 65 18 83/52 94 Nasal Cannula 2.0 07/21/16 04:00 Nasal Cannula 2.0 07/21/16 00:05 Nasal Cannula 2.0 07/21/16 00:00 36.7 73 17 75/44 92 Nasal Cannula 2.0 Physical Exam General Appearance: no apparent distress, + pertinent finding (chronically ill- appearing) Eyes: sclerae normal Neck: trachea midline Respiratory/Chest: no respiratory distress, no accessory muscle use, + crackles (at bases) Cardiovascular: regular rate, rhythm, no edema, no murmur Abdomen: normal bowel sounds, non tender, soft Extremities: no calf tenderness, + pertinent finding (left BKA) Neurologic/Psychiatric: alert, normal mood/affect, oriented x 3 Skin: + pertinent finding (mild erythema around tunneled IJ site, no drainage) Laboratory Results Last 24 Hours Test 07/21/16 06:54 07/21/16 09:49 07/21/16 10:59 07/21/16 14:06 Bedside Glucose 87 mg/dl 135 mg/dl White Blood Count 4.12 K/uL Red Blood Count 3.87 M/uL Hemoglobin 11.4 g/dL Hematocrit 36.8 % Mean Corpuscular Volume 95.1 fL Mean Corpuscular Hemoglobin 29.5 pg Mean Corpuscular Hemoglobin Concent 31.0 g/dl Platelet Count 174 K/uL Mean Platelet Volume 10.8 fL Neutrophils (%) (Auto) 71.1 % Lymphocytes (%) (Auto) 18.0 % Monocytes (%) (Auto) 9.0 % Eosinophils (%) (Auto) 1.2 % Basophils (%) (Auto) 0.5 % Neutrophils # (Auto) 2.93 K/uL Lymphocytes # (Auto) 0.74 K/uL Monocytes # (Auto) 0.37 K/uL Eosinophils # (Auto) 0.05 K/uL Basophils # (Auto) 0.02 K/uL RDW Standard Deviation 50.7 fL RDW Coefficient of Variation 14.7 % Immature Granulocyte % (Auto) 0.2 % Immature Granulocyte # (Auto) 0.01 K/uL Sodium Level 137 mmol/L Potassium Level 4.4 mmol/L Chloride Level 104 mmol/L Carbon Dioxide Level 15 mmol/L Anion Gap 18.0 mmol/L Blood Urea Nitrogen 52 mg/dl Creatinine 5.10 mg/dl Est Creatinine Clear Calc Drug Dose 14.8 ml/min Estimated GFR () 13.4 Estimated GFR (Non- 11.5 BUN/Creatinine Ratio 9.9 Random Glucose 198 mg/dl Calcium Level 8.2 mg/dl Magnesium Level 2.4 mg/dl Lactic Acid Level 1.6 mmol/L Test 07/21/16 16:20 07/21/16 20:39 Bedside Glucose 96 mg/dl 110 mg/dl Assessment and Plan This is a 60 y/o male with PMHx of hypotension, ESRD requiring dialysis, DMII, CAD, hypothyroidism, A fib and depression presented to the ED complaining of hypotension, vomiting and lightheadedness. Patient states that he was at dialysis and he was not "feeling well" immediately after dialysis. He was nauseated and vomit 1X there. Didn't notice any blood. He also complains of generalized body aches, mostly on b/l shoulder and back. Complains of headache and weakness. Per patient prior today he was doing well. Per EMS, the patient was at dialysis and was starting to be treated for a central line infection due to pain at the site, and was possibly given Vancomycin. He then developed hypotension, diaphoresis, and altered mental status. When EMS arrived, the patient was hypotensive, but they were unable to get an oxygen or temperature on him. Reportedly he didn't take Midodrine as scheduled prior to dialysis. Hypotension/dehydration post dialysis/nausea and vomiting postdialysis--the patient received 1/2 L of IV fluid in the emergency department, and will continue normal saline at 50 ML's per hour. His blood pressure has improved, he no longer feels nauseous and had no further vomiting. He likely had too much fluid taken off at dialysis. -We will increase Midodrine from 2.5 by mouth daily to twice a day. -rule out infection--> CXR does show right perihilar infiltrate and has possible line infection superficially--> need to find out if did receive Vanc -check Vanc random level in AM -started Zosyn to cover for PNA, watch for C. diff -continue increased dose of midodrine CAD/hypertension/CHF--at this point as noted above is actually dehydrated he'll be gently hydrated overnight. Continue Eliquis 5 mg by mouth every 12 hours. Peripheral neuropathy--continue gabapentin 40 mg by mouth 3 times a day and at bedtime. Depression--continue Lexapro 10 mg by mouth daily. BPH--continue finasteride 5 mg by mouth daily. Hypothyroidism--continue levothyroxine sodium 100 g by mouth daily. GERD--change omeprazole 20 mg by mouth daily to pantoprazole 40 mg by mouth daily, and sucralfate 1 g by mouth 4 times a day. Glaucoma continue Xalatan 0.005%, one drop OPL at bedtime. Constipation continue MiraLAX 17 g by mouth daily. End-stage renal disease on hemodialysi-. HD MWF continue nephronex , PhosLo and Lactinex as per outpatient. -Cosult to Nephrology appreciated
[2016-07-22] VITALS (9 sets, daily range): BP systolic 79–102; BP diastolic 46–64; PULSE 54–63; TEMP 36.3–36.9; O2SAT 90–97
[2016-07-22] MEDS: PIPERACILL/TAZOBAC IV 3.375 GM in DEXTROSE 5% 100ML 100 ML IV SCH ×2 (05:45→17:03)
[2016-07-22 06:18] LABS: HEMATOCRIT 33.3 % (42-52); MEAN CELL VOLUME 92.5 fL (80-100); MEAN CORPUSCULAR HEMOGLOBIN 29.4 pg (25-34); MEAN CORPUSCULAR HGB CONC 31.8 g/dl (32-36); MEAN PLATELET VOLUME 10.4 fL (7.4-10.4); PLATELET COUNT 183 K/uL (130-400); WHITE BLOOD COUNT 4.25 K/uL (4.8-10.8)
[2016-07-22 06:53] LABS: ANISOCYTOSIS PRESENT; BASO ABS # 0.08 K/uL (0-0.2); BASOPHIL % 1.8 % (0-2); COMPLETE YES; ECHINOCYTES 1+; EOSINOPHIL % 1.8 %; LYMPH ABS # 1.27 K/uL (1.2-3.4); LYMPHOCYTE % 29.8 %; NEUTROPHILS % 59.6 %
[2016-07-22 07:06] LABS: BUN/CREATININE RATIO 10.3 (10-20); CALCIUM 8.6 mg/dl (8.5-10.1); CREATININE 6.5 mg/dl (0.60-1.40); MAGNESIUM 2.5 mg/dl (1.8-2.4); POTASSIUM 4.6 mmol/L (3.5-5.1)
[2016-07-22] MEDS: ESCITALOPRAM OXALATE 10 MG TAB PO SCH (07:50)
[2016-07-22] MEDS: CALCIUM ACETATE 667MG GELCAP PO SCH ×3 (07:50→16:59)
[2016-07-22] MEDS: MIDODRINE 2.5 MG TAB PO SCH ×2 (07:51→21:12)
[2016-07-22] MEDS: LACTOBACILLUS ACIDOPHILUS (FLORANEX) TAB PO SCH ×2 (07:51→21:16)
[2016-07-22] MEDS: APIXABAN 2.5 MG TAB PO SCH ×2 (07:51→21:12)
[2016-07-22] MEDS: SUCRALFATE 1 GM/10 ML UDC PO SCH ×4 (07:51→21:16)
[2016-07-22] MEDS: FINASTERIDE 5 MG TAB PO SCH (07:52)
[2016-07-22] MEDS: POLYETHYLENE (MIRALAX) 17 GM PACK PO SCH (07:52)
[2016-07-22] MEDS: GABAPENTIN 400 MG CAP PO SCH ×4 (07:52→22:41)
[2016-07-22] MEDS: LEVOTHYROXINE 100 MCG TAB PO SCH (07:52)
[2016-07-22] MEDS: METRONIDAZOLE 0.75% TOPICAL GEL 45 GM TUBE TOP SCH (07:52)
[2016-07-22] MEDS: PANTOprazole SOD 40 MG TAB PO SCH (07:52)
[2016-07-22] MEDS: INSULIN ASPART 100 UNITS/ML 3 ML PEN SC SCH ×4 (07:54→21:40)
--- NOTE | 2016-07-22 11:26 | DIAGNOSTIC IMAGING REPORT ---
CHEST ONE VIEW PORTABLE CLINICAL HISTORY: f/u right perihilar infiltrate pneumonia COMPARISON STUDY: 07/20/2016 FINDINGS: Improved right perihilar infiltrate. Minimal residual. Minimal platelike atelectasis left base. IMPRESSION: Improved right perihilar infiltrate. Minimal atelectasis left base. Electronically signed by: Parker Arthur M.D. 07/22/2016 11:24 AM Dictated Date/Time: 07/22/2016 11:24 AM
[2016-07-22] MEDS ORDERED: VANCOMYCIN INJ 1,000 MG in SODIUM CHLORIDE 0.9% 250ML 250 ML IV STA (12:17)
[2016-07-22] MEDS ORDERED: VANCOMYCIN CONSULT ACTIVE PRN (12:30)
[2016-07-22] MEDS ORDERED: LEVO1TAB35 PO (14:37)
[2016-07-22] MEDS ORDERED: [UNRECOGNIZED DRUG - CODE] IV (14:37)
[2016-07-22] MEDS ORDERED: MTRG45 TOP (14:37)
[2016-07-22] MEDS ORDERED: POLY335019 PO (14:37)
[2016-07-22] MEDS ORDERED: PRMT25 PO (14:37)
--- NOTE | 2016-07-22 14:45 | Discharge Instructions ---
Discharge Instructions Admission Reason for Admission: Hypotension Discharge Discharge Diagnosis / Problem: Hypotension, PNA, Cellulitis Discharge Goals Goal(s): Improve disease control, Therapeutic intervention Activity Recommendations Activity Limitations: resume your previous activity . Instructions / Follow-Up Instructions / Follow-Up You were admitted for very low blood pressure after dialysis that was likely related to your missing a dose of midodrine prior to dialysis. You were found to have a mild pneumonia on chest xray and should finish out a course of Levaquin (antibiotic) for this. You were given a single dose of Vancomycin 1000mg IV in thepital for the developing cellulitis around your catheter site as your Pipe Foreman had wanted. You should have your Vancomycin level checked with dialysis on Saturday and it can be redosed as needed with dialysis. Your midodrine was increased to twice daily to keep your blood pressure up. Of note, your finasteride (Proscar) was stopped this admission (was actually stopped last admission but was still on your home med list when you came in this time). Please follow all of your medication list as prescribed very carefully. You did have some diarrhea while you were here but your stool test for C. diff was NEGATIVE. Please follow up with your PCP within 1 week, and for dialysis as scheduled on Saturday. Current Hospital Diet Patient's current hospital diet: AHA Diet (Heart Healthy), Low Sodium Diet (2gm Na), Renal Diet, Diabetes Type 2 Diet Discharge Diet Recommended Diet: AHA Diet (Heart Healthy), Low Sodium Diet (2gm Na), Diabetes Type 2 Diet, Renal Diet Procedures Procedures Performed: Chest xrays Pending Studies Studies pending at discharge: yes List of pending studies: Final Blood culture result Laboratory Results Hemoglobin A1c Test 05/04/16 04:38 Range/Units Estimated Average Glucose 91 mg/dl Hemoglobin A1c 4.8 4.5-5.6 % Medical Emergencies . Who to Call and When: Medical Emergencies: If at any time you feel your situation is an emergency, please call 911 immediately. . Non-Emergent Contact Non-Emergency issues call your: Primary Care Provider, Pipe Foreman Call Non-Emergent contact if: you have a fever, your pain is not controlled, your pain is worsening, your pain is unusual for you, your pain is concerning you, wound has increased drainage, wound has increased redness, wound has increased pain, you have any medication questions . . "Provider Documentation" section prepared by Blanca Kam. VTE Core Measure Inpt VTE Proph given/why not?: Other Anticoagulation (Eliquis)
--- NOTE | 2016-07-22 16:19 | Pharmacy Progress Note ---
Pharmacy Antibiotic Consult Date of Service: Jul 22, 2016. Pharmacy Dosing Scope Pharmacy is consulted to initiate Vancomycin IV dosing therapy, order appropriate labs and adjust drug dose/frequency. Subjective The patient is a 60 year old male admitted on Jul 20, 2016 at 18:23. Objective Height (Feet): 5 Height (Inches): 7.00 Weight (Kilograms): 79.900 Lab Results (24hrs): Laboratory Tests Test 07/22/16 05:42 BUN/Creatinine Ratio 10.3 Blood Urea Nitrogen 67 mg/dl Creatinine 6.50 mg/dl White Blood Count 4.25 K/uL Red Blood Count 3.60 M/uL Hemoglobin 10.6 g/dL Hematocrit 33.3 % Mean Corpuscular Volume 92.5 fL Mean Corpuscular Hemoglobin 29.4 pg Mean Corpuscular Hemoglobin Concent 31.8 g/dl Platelet Count 183 K/uL Mean Platelet Volume 10.4 fL Micro Results: Item Value Date Time C.difficile Toxin B Gene (PCR) - Final Complete 07/22/16 0900 Stool No C. difficile toxin B gene detected Blood Culture - Preliminary Resulted 07/20/16 1647 Blood NO GROWTH TO DATE. Blood Culture - Preliminary Resulted 07/20/16 1639 Blood NO GROWTH TO DATE. Assessment & Plan Assessment * 60 y/o M with ESRD on HD (MWF) who was apparently given Vancomycin prior to admission for a central line infection. Dose and time given unknown. * Goal Vancomycin "trough" 15-20 mcg/mL * Random level (ordered by Dr. Kam) on 07/22 @ 0542 of 7.6 mcg/mL is subtherapeutic * Patient needs another dose today Plan * Give Vancomycin 1000mg IV x 1 dose today * Random level ordered with AM labs 07/23/16 (anticipate next HD should be tomorrow) Pharmacy will continue to follow and will adjust dose/frequency as necessary. Thank you
[2016-07-22] MEDS: SODIUM CHLORIDE 0.9% 1000ML 1,000 ML IV SCH (16:59)
[2016-07-22] MEDS: NEPHROCAPS PO SCH (17:04)
--- NOTE | 2016-07-22 19:02 | Hospitalist Progress Note ---
Hospitalist Progress Note Date of Service Jul 22, 2016. Subjective Pt evaluation today including: conversation w/ patient, physical exam, chart review, lab review, review of studies, review of inpatient medication list Pt feels great, is having diarrhea and incontinence to stool but C. diff negative. BPs are improved, no abd pain, afebrile, no chest pain or SOB. Constitutional: No fever All Other Systems: Reviewed and Negative Objective Vital Signs Date Time Temp Pulse Resp B/P Pulse Ox O2 Delivery O2 Flow Rate FiO2 07/22/16 18:27 36.4 62 20 95 07/22/16 16:00 Room Air 07/22/16 15:30 36.4 62 20 95/64 95 Room Air 07/22/16 12:00 Nasal Cannula 2.0 07/22/16 11:22 36.4 54 16 102/64 94 2.0 07/22/16 08:00 Nasal Cannula 2.0 07/22/16 07:42 36.4 56 16 92/58 90 2.0 07/22/16 04:03 36.6 59 18 80/50 92 Nasal Cannula 2.0 07/22/16 04:00 95 Nasal Cannula 2.0 07/22/16 00:00 36.9 62 17 79/46 97 Nasal Cannula 2.0 07/21/16 23:59 95 Nasal Cannula 2.0 07/21/16 20:40 36.6 65 20 88/54 96 Nasal Cannula 2.0 76/48 07/21/16 20:00 95 Nasal Cannula 2.0 Physical Exam General Appearance: no apparent distress, + pertinent finding (chronically ill- appearing) Eyes: sclerae normal ENT: pharynx normal Respiratory/Chest: lungs clear, no respiratory distress, no accessory muscle use Cardiovascular: regular rate, rhythm, no edema, no murmur Abdomen: normal bowel sounds, non tender, soft Extremities: no pedal edema Neurologic/Psychiatric: alert, normal mood/affect, oriented x 3 Skin: normal color, warm/dry, + pertinent finding (mild erythema around right chest tunneled catheter, no drainage) Laboratory Results Last 24 Hours Test 07/21/16 20:39 07/22/16 05:42 07/22/16 06:48 07/22/16 10:59 Bedside Glucose 110 mg/dl 81 mg/dl 154 mg/dl White Blood Count 4.25 K/uL Red Blood Count 3.60 M/uL Hemoglobin 10.6 g/dL Hematocrit 33.3 % Mean Corpuscular Volume 92.5 fL Mean Corpuscular Hemoglobin 29.4 pg Mean Corpuscular Hemoglobin Concent 31.8 g/dl Platelet Count 183 K/uL Mean Platelet Volume 10.4 fL RDW Standard Deviation 49.8 fL RDW Coefficient of Variation 14.6 % Neutrophils % (Manual) 59.6 % Lymphocytes % (Manual) 29.8 % Monocytes % (Manual) 7.0 % Eosinophils % (Manual) 1.8 % Basophils % (Manual) 1.8 % Neutrophils # (Manual) 2.53 K/uL Total Absolute Neutrophils 2.53 K/uL Lymphocytes # (Manual) 1.27 K/uL Total Absolute Lymphocytes 1.27 K/uL Monocytes # (Manual) 0.30 K/uL Eosinophils # (Manual) 0.08 K/uL Basophils # (Manual) 0.08 K/uL Anisocytosis PRESENT Echinocytes 1+ Sodium Level 138 mmol/L Potassium Level 4.6 mmol/L Chloride Level 106 mmol/L Carbon Dioxide Level 17 mmol/L Anion Gap 15.0 mmol/L Blood Urea Nitrogen 67 mg/dl Creatinine 6.50 mg/dl Est Creatinine Clear Calc Drug Dose 12.6 ml/min Estimated GFR () 10.0 Estimated GFR (Non- 8.6 BUN/Creatinine Ratio 10.3 Random Glucose 81 mg/dl Calcium Level 8.6 mg/dl Magnesium Level 2.5 mg/dl Random Vancomycin Level 7.6 mcg/ml Test 07/22/16 16:23 07/22/16 16:48 07/22/16 17:04 07/22/16 17:15 Bedside Glucose 52 mg/dl 55 mg/dl 62 mg/dl 78 mg/dl Test 07/22/16 17:37 Bedside Glucose 113 mg/dl Assessment and Plan This is a 60 y/o male with PMHx of hypotension, ESRD requiring dialysis, DMII, CAD, hypothyroidism, A fib and depression presented to the ED complaining of hypotension, vomiting and lightheadedness. Patient states that he was at dialysis and he was not "feeling well" immediately after dialysis. He was nauseated and vomit 1X there. Didn't notice any blood. He also complains of generalized body aches, mostly on b/l shoulder and back. Complains of headache and weakness. Per EMS, the patient was at dialysis and was starting to be treated for a central line infection due to pain at the site, and was possibly given Vancomycin. He then developed hypotension, diaphoresis, and altered mental status. When EMS arrived, the patient was hypotensive, but they were unable to get an oxygen or temperature on him. Reportedly he didn't take Midodrine as scheduled prior to dialysis. Hypotension/dehydration post dialysis/nausea and vomiting postdialysis--the patient received 1/2 L of IV fluid in the emergency department, and will continue normal saline at 50 ML's per hour. His blood pressure has improved, he no longer feels nauseous and had no further vomiting. Likely secondary to not taking midodrine dose pre-HD - increased Midodrine from 2.5 by mouth daily to twice a day every day (rather than MWF) -rule out infection--> CXR does show right perihilar infiltrate and has possible line infection superficially--> repeat CXR with improved infiltrate -check Vanc random level in AM and dose as needed with dialysis for total 7-10 days -started Zosyn to cover for PNA, watch for C. diff (negative so far)-finish out 5 day course of Levaquin po on discharge CAD/hypertension/CHF--stable, hypotensive on arrival, now improved - Continue Eliquis 2.5 mg bid Peripheral neuropathy--continue gabapentin 40 mg by mouth 3 times a day and at bedtime. Depression--continue Lexapro 10 mg by mouth daily. BPH-no longer needs to be on finasteride as he is anuric Hypothyroidism--continue levothyroxine sodium 100 g by mouth daily. GERD--change omeprazole 20 mg by mouth daily to pantoprazole 40 mg by mouth daily, and sucralfate 1 g by mouth 4 times a day. Glaucoma continue Xalatan 0.005%, one drop OPL at bedtime. Constipation continue MiraLAX 17 g by mouth daily prn but having diarrhea currently End-stage renal disease on hemodialysi-. HD MWF continue nephronex , PhosLo and Lactinex as per outpatient. -Consult to Nephrology appreciated -will need HD prior to discharge on Saturday Proph-Xochilt Dispo-was to go home on Sun but home health agency could not send out radio division lieutenant to meet him on a Saturday, so to home on Sat after dialysis PT/OT consults FULL CODE
[2016-07-23] VITALS (20 sets, daily range): BP systolic 64–134; BP diastolic 35–79; PULSE 52–76; TEMP 36.4–36.8; O2SAT 93–94
[2016-07-23] MEDS: PIPERACILL/TAZOBAC IV 3.375 GM in DEXTROSE 5% 100ML 100 ML IV SCH ×2 (06:06→23:21)
[2016-07-23] MEDS: SUCRALFATE 1 GM/10 ML UDC PO SCH ×4 (06:06→22:38)
--- NOTE | 2016-07-23 07:02 | Nephrology Progress Note ---
Nephrology Progress Note Date of Service: Jul 23, 2016. Subjective 60 yo male with esrd who developed diarrhea and after dialysis developed worsening n/v and was significantly hypotensive in the ER. Given iv fluids and adjusted midodrine. pt feels good although bp is low. asymptomatic. Objective Date Time Temp Pulse Resp B/P Pulse Ox O2 Delivery O2 Flow Rate FiO2 07/23/16 00:16 36.4 66 20 92/47 94 07/23/16 00:00 Room Air 07/22/16 21:10 63 86/59 07/22/16 20:00 Room Air 07/22/16 19:05 36.3 62 18 87/54 91 Room Air 07/22/16 18:27 36.4 62 20 95 07/22/16 16:00 Room Air 07/22/16 15:30 36.4 62 20 95/64 95 Room Air 07/22/16 12:00 Nasal Cannula 2.0 07/22/16 11:22 36.4 54 16 102/64 94 2.0 07/22/16 08:00 Nasal Cannula 2.0 07/22/16 07:42 36.4 56 16 92/58 90 2.0 Physical Exam: General-aaox3 Eyes-no scleral icterus ENT-mmm Neck-supple Lungs-cta Heart-rrr Abdomen-bs+ s/nt/nd Extremities-no c/c/e, left bka Neuro-nonfocal Current Inpatient Medications Medications (Trade) Dose Ordered Sig/Rigoberto Route Start Time Stop Time Status Last Admin Dose Admin Acetaminophen (Tylenol Tab) 650 mg Q4H PRN PO 07/20/16 18:15 08/19/16 18:14 Ondansetron HCl (Zofran Inj) 4 mg Q6H PRN IV 07/20/16 18:15 08/19/16 18:14 Bisacodyl (Dulcolax Supp) 10 mg DAILY PRN MN 07/20/16 18:15 08/19/16 18:14 Calcium Acetate (Phoslo Cap) 667 mg DAILY PRN PO 07/20/16 18:15 08/19/16 18:14 Calcium Acetate (Phoslo Cap) 2,001 mg TIDM PO 07/21/16 07:30 08/20/16 07:59 07/22/16 16:59 2,001 MG Escitalopram Oxalate (Lexapro Tab) 10 mg DAILY PO 07/21/16 09:00 08/20/16 08:59 07/22/16 07:50 10 MG Gabapentin (Neurontin Cap) 400 mg HS PO 07/20/16 21:00 08/19/16 20:59 07/22/16 22:41 400 MG Gabapentin (Neurontin Cap) 400 mg TID PO 07/20/16 21:00 08/19/16 20:59 07/22/16 21:16 400 MG Lactobacillus Acidophilus (Floranex Tab) 1 tab BID PO 07/20/16 21:00 08/19/16 20:59 07/22/16 21:16 1 TAB Levothyroxine Sodium (Synthroid Tab) 100 mcg DAILY PO 07/21/16 09:00 08/20/16 08:59 07/22/16 07:52 100 MCG Sucralfate (Carafate Susp) 1 gm ACHS PO 07/20/16 21:00 08/19/16 20:59 07/23/16 06:06 1 GM Apixaban (Eliquis Tab) 2.5 mg Q12@0900,2100 PO 07/20/16 21:00 08/19/16 20:59 07/22/16 21:12 2.5 MG Vitamin B Complex/ Vit C/Folic Acid (Nephrocaps) 1 cap DAILY@1800 PO 07/20/16 21:00 08/19/16 20:59 07/22/16 17:04 1 CAP Polyethylene (Miralax Powder Packet) 17 gm DAILY PO 07/21/16 09:00 08/20/16 08:59 Pantoprazole Sodium (Protonix Tab) 40 mg QAM PO 07/21/16 09:00 08/20/16 08:59 07/22/16 07:52 40 MG Metronidazole HCl (Metrogel Topical Gel) 1 appln DAILY TOP 07/21/16 09:00 07/31/16 08:59 07/22/16 07:52 1 APPLN Insulin Aspart (novoLOG ASPART) SLIDING SCALE G... ACHS SC 07/20/16 21:00 08/19/16 20:59 07/22/16 17:50 4 UNITS Midodrine (Proamatine Tab) 2.5 mg BID PO 07/20/16 21:00 08/19/16 20:59 07/22/16 21:12 2.5 MG Glucose (Glucose 40% Gel) 15-30 GRAMS 15 GRAMS... UD PRN PO 07/20/16 20:15 08/19/16 20:14 Glucose (Glucose Chew Tab) 4-8 Tablets 4 Tabl... UD PRN PO 07/20/16 20:15 08/19/16 20:14 Dextrose (Dextrose 50% 50ML Syringe) 25-50ML OF 50% DW IV FOR... UD PRN IV 07/20/16 20:15 08/19/16 20:14 Glucagon 1 mg 1 mg UD PRN SQ 07/20/16 20:15 08/19/16 20:14 Piperacillin Sod/ Tazobactam Sod/ Dextrose (Zosyn Iv/D5 100ml) 115 ml @ 28.75 mls/ hr Q12H IV 07/21/16 18:00 07/28/16 17:59 07/23/16 06:06 28.75 MLS/HR Piperacillin Sod/ Tazobactam Sod (Consult) 1 ea UD PRN N/A 07/21/16 09:00 07/31/16 08:59 Vancomycin HCl (Consult) 1 ea UD PRN N/A 07/22/16 12:30 08/21/16 12:29 Heparin Sodium (Porcine) (Heparin Iv Bolus) 1,000 unit ONE IV 07/23/16 08:00 07/23/16 08:01 Heparin Sodium (Porcine) 400 unit 400 unit Q1H IV 07/23/16 08:00 07/23/16 10:01 Epoetin Juan A/ Syringe (Procrit Inj/ Syringe) 0.3 ml @ 1 mls/min TODAY@0800 IV. 07/23/16 08:00 07/23/16 14:00 Last 24 Hours Test 07/22/16 10:59 07/22/16 16:23 07/22/16 16:48 07/22/16 17:04 Bedside Glucose 154 mg/dl 52 mg/dl 55 mg/dl 62 mg/dl Test 07/22/16 17:15 07/22/16 17:37 07/22/16 20:22 07/23/16 04:44 Bedside Glucose 78 mg/dl 113 mg/dl 110 mg/dl Date/Time Source Procedure Growth Status 07/22/16 09:00 Stool C.difficile Toxin B Gene (PCR) - Final No C. difficile toxin B gene detected Complete Assessment & Plan ESRD-for dialysis again today. will plan on no uf today secondary to low bp. on midodrine. in the past, was given one dose of iv steroids and bp improved. feel he gets periodic adrenal insufficiency. will discuss with hospitalist if ok to give one dose of steroids.
[2016-07-23 07:04] LABS: BASO % 0.4 %; BASO ABS # 0.02 K/uL (0-0.2); COMPLETE YES; EOS % 3.4 %; HEMATOCRIT 31.8 % (42-52); IG% 0.2 %; LYMPH % 23.8 %; LYMPH ABS # 1.12 K/uL (1.2-3.4); MEAN CELL VOLUME 91.6 fL (80-100); MEAN CORPUSCULAR HEMOGLOBIN 29.1 pg (25-34); MEAN CORPUSCULAR HGB CONC 31.8 g/dl (32-36); MEAN PLATELET VOLUME 10.2 fL (7.4-10.4); NEUT % 59.2 %; PLATELET COUNT 210 K/uL (130-400); RED BLOOD COUNT 3.47 M/uL (4.7-6.1)
[2016-07-23] MEDS: MIDODRINE 2.5 MG TAB PO SCH ×2 (07:35→22:38)
[2016-07-23] MEDS: PANTOprazole SOD 40 MG TAB PO SCH (07:35)
[2016-07-23] MEDS: LACTOBACILLUS ACIDOPHILUS (FLORANEX) TAB PO SCH ×2 (07:35→22:38)
[2016-07-23] MEDS: LEVOTHYROXINE 100 MCG TAB PO SCH (07:36)
[2016-07-23] MEDS: ESCITALOPRAM OXALATE 10 MG TAB PO SCH (07:36)
[2016-07-23] MEDS: CALCIUM ACETATE 667MG GELCAP PO SCH ×3 (07:43→16:50)
[2016-07-23] MEDS: APIXABAN 2.5 MG TAB PO SCH ×2 (07:43→22:35)
[2016-07-23] MEDS: POLYETHYLENE (MIRALAX) 17 GM PACK PO SCH (07:44)
[2016-07-23] MEDS: GABAPENTIN 400 MG CAP PO SCH ×4 (07:44→22:37)
[2016-07-23] MEDS: METRONIDAZOLE 0.75% TOPICAL GEL 45 GM TUBE TOP SCH (07:44)
[2016-07-23 07:54] LABS: BUN/CREATININE RATIO 9.5 (10-20); CALCIUM 8.5 mg/dl (8.5-10.1); CREATININE 8.1 mg/dl (0.60-1.40); MAGNESIUM 2.6 mg/dl (1.8-2.4); POTASSIUM 4.5 mmol/L (3.5-5.1)
[2016-07-23] MEDS ORDERED: EPOETIN ALFA 10,000 UNITS/ML VIAL IV. ONE (08:00)
[2016-07-23] MEDS ORDERED: HEPARIN SOD (PORCINE) 1000 UNIT/ML 10 ML VIAL IV SCH (08:00)
[2016-07-23] MEDS ORDERED: EPOETIN ALFA INJ 6,000 UNITS in SYRINGE 0 ML IV. SCH (08:00)
[2016-07-23] MEDS: INSULIN ASPART 100 UNITS/ML 3 ML PEN SC SCH ×4 (09:51→22:41)
[2016-07-23] MEDS: FLUDROCORTISONE ACETATE 0.1 MG TAB PO SCH (11:35)
--- NOTE | 2016-07-23 15:56 | Progress Note ---
Subjective Date of Service: Jul 23, 2016. (Perlita Toledo PA-C) Date of Service: 07/23/16 agree with PA note (Harsha Narayan MD) Subjective Pt evaluation today including: conversation w/ patient, physical exam, chart review, lab review, review of studies, review of inpatient medication list Patient seen and evaluated. No acute events overnight. Patient remains hypotensive but upon exam is asymptomatic. He reports feeling at his baseline and eager to return home. He is due for dialysis today. Verbalizes no other complaints (Perlita Toledo PA-C) Pt evaluation today including: conversation w/ patient, physical exam, chart review, review of studies, review of inpatient medication list BP improved after addition of florinef, HD done today (Harsha Narayan MD) Problem List Medical Problems: (1) Abdominal pain Status: Acute (2) C. difficile colitis Status: Acute (3) Colitis Status: Acute (4) Dehydration Status: Acute (5) Fever Status: Acute (6) Infection associated with peritoneal dialysis catheter Status: Acute (7) Lactic acidosis Status: Acute (8) Periumbilical abdominal pain Status: Acute (9) Pneumonia involving right lung Status: Acute (10) Sepsis Status: Acute (11) Septic shock Status: Acute (12) Vomiting Status: Acute (13) Weakness Status: Acute (Perlita Toledo PA-C) Review of Systems Constitutional: No chills, No fatigue, No fever, No weakness Respiratory: No cough, No shortness of breath Cardiac: No chest pain Abdomen: + diarrhea (Improving but remains loose), No constipation, No nausea, No pain, No vomiting Musculoskeletal: No calf pain Skin: No rash (Perlita Toledo PA-C) Constitutional: No fever ENT: No hearing loss Respiratory: No cough Abdomen: No pain Male : No dysuria Neurologic: No memory loss Psychiatric: No depression symptoms Endo: No fatigue (Harsha Narayan MD) Medications Current Inpatient Medications Medications (Trade) Dose Ordered Sig/Rigoberto Route Start Time Stop Time Status Last Admin Dose Admin Acetaminophen (Tylenol Tab) 650 mg Q4H PRN PO 07/20/16 18:15 08/19/16 18:14 Ondansetron HCl (Zofran Inj) 4 mg Q6H PRN IV 07/20/16 18:15 08/19/16 18:14 Bisacodyl (Dulcolax Supp) 10 mg DAILY PRN [place] 07/20/16 18:15 08/19/16 18:14 Calcium Acetate (Phoslo Cap) 667 mg DAILY PRN PO 07/20/16 18:15 08/19/16 18:14 Calcium Acetate (Phoslo Cap) 2,001 mg TIDM PO 07/21/16 07:30 08/20/16 07:59 07/23/16 11:45 2,001 MG Escitalopram Oxalate (Lexapro Tab) 10 mg DAILY PO 07/21/16 09:00 08/20/16 08:59 07/23/16 07:36 10 MG Gabapentin (Neurontin Cap) 400 mg HS PO 07/20/16 21:00 08/19/16 20:59 07/22/16 22:41 400 MG Gabapentin (Neurontin Cap) 400 mg TID PO 07/20/16 21:00 08/19/16 20:59 07/23/16 13:41 400 MG Lactobacillus Acidophilus (Floranex Tab) 1 tab BID PO 07/20/16 21:00 08/19/16 20:59 07/23/16 07:35 1 TAB Levothyroxine Sodium (Synthroid Tab) 100 mcg DAILY PO 07/21/16 09:00 08/20/16 08:59 07/23/16 07:36 100 MCG Sucralfate (Carafate Susp) 1 gm ACHS PO 07/20/16 21:00 08/19/16 20:59 07/23/16 11:43 1 GM Apixaban (Eliquis Tab) 2.5 mg Q12@0900,2100 PO 07/20/16 21:00 08/19/16 20:59 07/23/16 07:43 2.5 MG Vitamin B Complex/ Vit C/Folic Acid (Nephrocaps) 1 cap DAILY@1800 PO 07/20/16 21:00 08/19/16 20:59 07/22/16 17:04 1 CAP Polyethylene (Miralax Powder Packet) 17 gm DAILY PO 07/21/16 09:00 08/20/16 08:59 Pantoprazole Sodium (Protonix Tab) 40 mg QAM PO 07/21/16 09:00 3/20/17 08:59 07/23/16 07:35 40 MG Metronidazole HCl (Metrogel Topical Gel) 1 appln DAILY TOP 07/21/16 09:00 07/31/16 08:59 07/23/16 07:44 1 APPLN Insulin Aspart (novoLOG ASPART) SLIDING SCALE G... ACHS SC 07/20/16 21:00 08/19/16 20:59 07/23/16 12:52 4 UNITS Midodrine (Proamatine Tab) 2.5 mg BID PO 07/20/16 21:00 08/19/16 20:59 07/23/16 07:35 2.5 MG Glucose (Glucose 40% Gel) 15-30 GRAMS 15 GRAMS... UD PRN PO 07/20/16 20:15 08/19/16 20:14 Glucose (Glucose Chew Tab) 4-8 Tablets 4 Tabl... UD PRN PO 07/20/16 20:15 08/19/16 20:14 Dextrose (Dextrose 50% 50ML Syringe) 25-50ML OF 50% DW IV FOR... UD PRN IV 07/20/16 20:15 08/19/16 20:14 Glucagon 1 mg 1 mg UD PRN SQ 07/20/16 20:15 08/19/16 20:14 Piperacillin Sod/ Tazobactam Sod/ Dextrose (Zosyn Iv/D5 100ml) 115 ml @ 28.75 mls/ hr Q12H IV 07/21/16 18:00 07/28/16 17:59 07/23/16 06:06 28.75 MLS/HR Piperacillin Sod/ Tazobactam Sod (Consult) 1 ea UD PRN N/A 07/21/16 09:00 07/31/16 08:59 Vancomycin HCl (Consult) 1 ea UD PRN N/A 07/22/16 12:30 08/21/16 12:29 Fludrocortisone Acetate (Florinef Tab) 0.1 mg QAM PO 07/23/16 11:00 08/22/16 10:59 07/23/16 11:35 0.1 MG (Perlita Toledo, RAMBO) Objective Vital Signs Date Time Temp Pulse Resp B/P Pulse Ox O2 Delivery O2 Flow Rate FiO2 07/23/16 11:54 75 93 07/23/16 11:37 134/79 07/23/16 07:39 66/36 07/23/16 07:39 36.8 76 17 78/45 93 07/23/16 00:16 36.4 66 20 92/47 94 07/23/16 00:00 Room Air 07/22/16 21:10 63 86/59 07/22/16 20:00 Room Air 07/22/16 19:05 36.3 62 18 87/54 91 Room Air 07/22/16 18:27 36.4 62 20 95 07/22/16 16:00 Room Air (Perlita Toledo, PA-C) Physical Exam General Appearance: WD/WN, no apparent distress Eyes: sclerae normal ENT: hearing grossly normal Neck: supple, no JVD, trachea midline Respiratory/Chest: lungs clear, normal breath sounds, no respiratory distress, no accessory muscle use Cardiovascular: regular rate, rhythm, no gallop, no murmur Abdomen: non tender, soft, + abnormal bowel sounds (hyperactive) Extremities: no pedal edema, no calf tenderness, + pertinent finding (L BKA) Neurologic/Psychiatric: alert, oriented x 3 Skin: normal color, warm/dry (Perlita Toledo, PA-C) General Appearance: WD/WN, no apparent distress Eyes: normal inspection, EOMI ENT: hearing grossly normal, pharynx normal Neck: supple, no JVD Respiratory/Chest: normal breath sounds Cardiovascular: no gallop Abdomen: soft Extremities: normal inspection Neurologic/Psychiatric: normal mood/affect (Harsha Narayan MD) Laboratory Results Last 24 Hours Test 07/22/16 16:23 07/22/16 16:48 07/22/16 17:04 07/22/16 17:15 Bedside Glucose 52 mg/dl 55 mg/dl 62 mg/dl 78 mg/dl Test 07/22/16 17:37 07/22/16 20:22 07/23/16 06:23 07/23/16 07:35 Bedside Glucose 113 mg/dl 110 mg/dl 86 mg/dl White Blood Count 4.70 K/uL Red Blood Count 3.47 M/uL Hemoglobin 10.1 g/dL Hematocrit 31.8 % Mean Corpuscular Volume 91.6 fL Mean Corpuscular Hemoglobin 29.1 pg Mean Corpuscular Hemoglobin Concent 31.8 g/dl Platelet Count 210 K/uL Mean Platelet Volume 10.2 fL Neutrophils (%) (Auto) 59.2 % Lymphocytes (%) (Auto) 23.8 % Monocytes (%) (Auto) 13.0 % Eosinophils (%) (Auto) 3.4 % Basophils (%) (Auto) 0.4 % Neutrophils # (Auto) 2.78 K/uL Lymphocytes # (Auto) 1.12 K/uL Monocytes # (Auto) 0.61 K/uL Eosinophils # (Auto) 0.16 K/uL Basophils # (Auto) 0.02 K/uL RDW Standard Deviation 49.8 fL RDW Coefficient of Variation 14.8 % Immature Granulocyte % (Auto) 0.2 % Immature Granulocyte # (Auto) 0.01 K/uL Sodium Level 140 mmol/L Potassium Level 4.5 mmol/L Chloride Level 107 mmol/L Carbon Dioxide Level 14 mmol/L Anion Gap 19.0 mmol/L Blood Urea Nitrogen 77 mg/dl Creatinine 8.10 mg/dl Est Creatinine Clear Calc Drug Dose 10.1 ml/min Estimated GFR () 7.6 Estimated GFR (Non- 6.6 BUN/Creatinine Ratio 9.5 Random Glucose 74 mg/dl Calcium Level 8.5 mg/dl Magnesium Level 2.6 mg/dl Random Vancomycin Level 18.7 mcg/ml Test 07/23/16 11:28 Bedside Glucose 133 mg/dl (Perlita Toledo, RAMBO) Assessment and Plan This is a 60 y/o male with PMHx of hypotension, ESRD requiring dialysis, DMII, CAD, hypothyroidism, A fib and depression presented to the ED complaining of hypotension, vomiting and lightheadedness. Patient states that he was at dialysis and he was not "feeling well" immediately after dialysis. He was nauseated and vomit 1X there. Didn't notice any blood. He also complains of generalized body aches, mostly on b/l shoulder and back. Complains of headache and weakness. Per EMS, the patient was at dialysis and was starting to be treated for a central line infection due to pain at the site, and was possibly given Vancomycin. He then developed hypotension, diaphoresis, and altered mental status. When EMS arrived, the patient was hypotensive, but they were unable to get an oxygen or temperature on him. Reportedly he didn't take Midodrine as scheduled prior to dialysis. Hypotension/Dehydration Post Dialysis with N/V - BP remains hypotensive but patient is asymptomatic - Continue Midodrine 2.5 mg daily instead of previous MWF - Add Florinef 0.1 mg daily - one dose has improved BP reading - plan to continue as outpatient Infection? Central Line Infection? Perihilar Infiltrate: - Vancomycin per pharmacy dosing x 7-10 days - Zosyn 3.375 mg BID to receive a dose tonight -- Plan to convert to Levaquin with renal dosing x 5 days ESRD: HD MWF - Continue Nephronex, Phoslo, and Lactinex - Nephrology following - dialyzed today Paroxysmal A Fib: Currently NSR - Eliquis 5 mg BID T2DM with Peripheral Neuropathy: - Gabapentin 40 mg TID and HS - SSI Depression: - Lexapro 10 mg daily BPH: D/C Proscar as he is anuric Hypothyroidism: - Levothyroxine 100 mcg daily GERD: - Protonix 40 mg daily - Carafate 1 g QID DVT Prophylaxis: - Eliquis Code Status: - FULL RESUSCITATION Disposition: - Home tomorrow (Perlita Toledo, PABartoloC) This is a 60 y/o male with PMHx of hypotension, ESRD requiring dialysis, DMII, CAD, hypothyroidism, A fib and depression presented to the ED complaining of hypotension, vomiting and lightheadedness. Patient states that he was at dialysis and he was not "feeling well" immediately after dialysis. He was nauseated and vomit 1X there. Didn't notice any blood. He also complains of generalized body aches, mostly on b/l shoulder and back. Complains of headache and weakness. Comes with hypotension. Hypotension/Dehydration Post Dialysis with N/V BP remains hypotensive but patient is asymptomatic Continue Midodrine 2.5 mg daily instead of previous MWF Add Florinef 0.1 mg daily, added IV hydrocortisone 50 mg q8h for today, rapidly taper tomorrow am Central Line Infection vs infection associated with Perihilar Infiltrate: cont Vancomycin per pharmacy dosing x 7-10 days cont Zosyn 3.375 mg BID to receive a dose tonight Plan to convert to Levaquin with renal dosing x 5 days ESRD on HD MWF Continue Nephronex, Phoslo, and Lactinex Nephrology following, HD today Paroxysmal A Fib: Currently NSR Eliquis 5 mg BID T2DM with Peripheral Neuropathy: Gabapentin 40 mg TID and HS SSI Depression: Lexapro 10 mg daily BPH: D/C Proscar as he is anuric Hypothyroidism: Levothyroxine 100 mcg daily GERD: Protonix 40 mg daily Carafate 1 g QID DVT Prophylaxis: Eliquis Code Status: FULL RESUSCITATION Disposition: d/c Home tomorrow (Harsha Narayan MD)
--- NOTE | 2016-07-23 17:07 | Pharmacy Progress Note ---
Pharmacy Progress Note REGARDING VANCOMYCIN: * Trough = 18.7mcg/mL * Patient to have HD today (3.5 hours) around 17:00 * Re-place vancomycin with 500mg IV x1 dose post HD today Thank you for engaging the clinical pharmacy consult service in the care of this patient. Please let us know if we can be of further assistance.
[2016-07-23] MEDS: NEPHROCAPS PO SCH (17:58)
[2016-07-23] MEDS ORDERED: VANCOMYCIN INJ 500 MG in SODIUM CHLORIDE 0.9% 100ML 100 ML IV SCH (22:00)
[2016-07-23] MEDS: HYDROCORTISONE IV 50 MG in SYRINGE 0 ML IV SCH (23:21)
[2016-07-24 00:08] VITALS: BP 80/52; PULSE 70; TEMP 36.4; O2SAT 92
[2016-07-24] MEDS: SUCRALFATE 1 GM/10 ML UDC PO SCH ×3 (05:51→15:40)
[2016-07-24] MEDS: HYDROCORTISONE IV 50 MG in SYRINGE 0 ML IV SCH ×2 (05:51→13:00)
[2016-07-24 06:42] LABS: HEMATOCRIT 34.8 % (42-52); MEAN CELL VOLUME 93.5 fL (80-100); MEAN CORPUSCULAR HEMOGLOBIN 29.3 pg (25-34); MEAN CORPUSCULAR HGB CONC 31.3 g/dl (32-36); MEAN PLATELET VOLUME 10.6 fL (7.4-10.4); PLATELET COUNT 181 K/uL (130-400); RED BLOOD COUNT 3.72 M/uL (4.7-6.1); WHITE BLOOD COUNT 3.76 K/uL (4.8-10.8)
[2016-07-24] MEDS: HEPARIN SOD (PORCINE) 1000 UNIT/ML 10 ML VIAL IV SCH ×2 (07:04→07:05)
[2016-07-24 07:20] VITALS: BP 89/64; PULSE 65; O2SAT 92
[2016-07-24 07:23] LABS: BUN/CREATININE RATIO 6.8 (10-20); CALCIUM 8.2 mg/dl (8.5-10.1); CREATININE 6.3 mg/dl (0.60-1.40); POTASSIUM 3.7 mmol/L (3.5-5.1)
[2016-07-24 07:26] VITALS: BP 96/60; PULSE 63; TEMP 36.3; O2SAT 91
[2016-07-24] MEDS: CALCIUM ACETATE 667MG GELCAP PO SCH ×3 (09:21→16:40)
[2016-07-24] MEDS: ESCITALOPRAM OXALATE 10 MG TAB PO SCH (09:22)
[2016-07-24] MEDS: APIXABAN 2.5 MG TAB PO SCH (09:22)
[2016-07-24] MEDS: LEVOTHYROXINE 100 MCG TAB PO SCH (09:22)
[2016-07-24] MEDS: PANTOprazole SOD 40 MG TAB PO SCH (09:22)
[2016-07-24] MEDS: GABAPENTIN 400 MG CAP PO SCH ×2 (09:22→14:00)
[2016-07-24] MEDS: MIDODRINE 2.5 MG TAB PO SCH (09:23)
[2016-07-24] MEDS: LACTOBACILLUS ACIDOPHILUS (FLORANEX) TAB PO SCH (09:23)
[2016-07-24] MEDS: FLUDROCORTISONE ACETATE 0.1 MG TAB PO SCH (09:23)
[2016-07-24] MEDS: POLYETHYLENE (MIRALAX) 17 GM PACK PO SCH (09:24)
[2016-07-24] MEDS: METRONIDAZOLE 0.75% TOPICAL GEL 45 GM TUBE TOP SCH (09:24)
[2016-07-24] MEDS: INSULIN ASPART 100 UNITS/ML 3 ML PEN SC SCH ×3 (09:28→16:44)
[2016-07-24] MEDS ORDERED: FLR1 PO (09:39)
[2016-07-24] MEDS ORDERED: LEVO1TAB35 PO (09:39)
--- NOTE | 2016-07-24 09:48 | Discharge Instructions ---
Discharge Instructions Admission Reason for Admission: Hypotension Discharge Discharge Diagnosis / Problem: Hypotension Discharge Goals Goal(s): Decrease discomfort, Improve function, Increase independence Activity Recommendations Activity Limitations: resume your previous activity . Instructions / Follow-Up Instructions / Follow-Up Low Blood Pressure: - This is likely from missing your midodrine dose prior to dialysis - Your Midodrine was increased to 2.5 mg to take twice a day every day - You will also get a prescription for Fludrocortisone 0.1 mg tablet daily to help with your blood pressure Pneumonia: - You did have a mild pneumonia on chest xray and we will finish out a pill antibiotic. - Take Levaquin 750 mg daily today (07/24) and then take the last dose on (07/26) due to your kidney function. Dialysis Catheter Infection: - You will be provided a prescription for Vancomycin to be given at dialysis. This can be given if your Game Programer wants to. - Have you Vancomycin level checked with dialysis on Saturday and the can initiate this medication if needed Home Medications: - YOUR PROSCAR FOR YOUR PROSTATE HAS BEEN STOPPED -- This was was actually stopped last admission but was still on your home med list when you came in this time Please follow all of your medication list as prescribed very carefully. You did have some diarrhea while you were here but your stool test for C. diff was NEGATIVE. Please follow up with your PCP within 1 week, and for dialysis as scheduled on Saturday. Current Hospital Diet Patient's current hospital diet: AHA Diet (Heart Healthy), Low Sodium Diet (2gm Na), Renal Diet, Diabetes Type 2 Diet Discharge Diet Recommended Diet: AHA Diet (Heart Healthy), Low Sodium Diet (2gm Na), Renal Diet Procedures Procedures Performed: Chest xrays Pending Studies Studies pending at discharge: no Laboratory Results Hemoglobin A1c Test 05/04/16 04:38 Range/Units Estimated Average Glucose 91 mg/dl Hemoglobin A1c 4.8 4.5-5.6 % Medical Emergencies . Who to Call and When: Medical Emergencies: If at any time you feel your situation is an emergency, please call 911 immediately. . Non-Emergent Contact Non-Emergency issues call your: Primary Care Provider Call Non-Emergent contact if: you have a fever, your pain is unusual for you, you have any medication questions . . "Provider Documentation" section prepared by Perlita Toledo. VTE Core Measure Inpt VTE Proph given/why not?: Other Anticoagulation (Eliquis)
[2016-07-24] MEDS ORDERED: [UNRECOGNIZED DRUG - CODE] IV (09:55)
[2016-07-24] MEDS ORDERED: MIDO2.5T PO (09:55)
[2016-07-24] MEDS ORDERED: MTRCR45 TOP (09:56)
[2016-07-24] MEDS ORDERED: POLY335019 PO (09:56)
[2016-07-24] MEDS: PIPERACILL/TAZOBAC IV 3.375 GM in DEXTROSE 5% 100ML 100 ML IV SCH (10:50)
[2016-07-24 13:51] VITALS: BP 125/79; PULSE 74; TEMP 36.6; O2SAT 94
--- NOTE | 2016-07-24 14:50 | Discharge Summary ---
Discharge Summary Date of Service Jul 24, 2016. Discharge Summary Admission Date: Jul 20, 2016 at 18:23 Discharge Date: Jul 24, 2016 Discharge Disposition: Home with services Principal Diagnosis: Hypotension Procedures: CHEST ONE VIEW PORTABLE CLINICAL HISTORY: f/u right perihilar infiltrate pneumonia COMPARISON STUDY: 07/20/2016 FINDINGS: Improved right perihilar infiltrate. Minimal residual. Minimal platelike atelectasis left base. IMPRESSION: Improved right perihilar infiltrate. Minimal atelectasis left base. Consultations: 1. Nephrology - Dialysis Medication Reconciliation New Medications: Levofloxacin (Levaquin) 750 Mg Tab 750 MG PO Q48H, #2 TAB Take one dose today (07/24) then take last dose on (07/26) Metronidazole Hcl (Metronidazole) 135 Appln/45 Gm Cr 1 APPLN TOP DAILY for 30 Days Midodrine Hcl (Midodrine Hcl) 2.5 Mg Tab 2.5 MG PO BID for 30 Days Polyethylene Glycol 3350 (Miralax) 1 Pow Pow 17 GM PO DAILY PRN for Constipation, #527 GM Vancomycin Hcl (Vancomycin Hcl) 1 Pow Pow 1000 MG IV DAILY, #7 To be given with dialysis if random level less than 17 Fludrocortisone Acetate (Fludrocortisone Acetate) 0.1 Mg Tab 0.1 MG PO QAM for 30 Days, TAB Continued Medications: Acetaminophen Tab (Tylenol) 325 Mg Tab 650 MG PO Q6 PRN for Pain or Fever Apixaban (Eliquis) 5 Mg Tab 5 MG PO Q12 B-Complex W/ C & Folic Acid (Nephronex) 1 Liq Liq 5 ML PO BID GIVE AT 1200 & 2000 Bisacodyl (Dulcolax) 10 Mg Sup 1 SUPP WV DAILY PRN for Constipation, SUP Calcium Acetate (Phoslo 667 Mg) 667 Mg Cap 3 CAP PO TIDM, 5 Refills Calcium Acetate (Phoslo 667 Mg) 667 Mg Cap 1 CAP PO DIRECTED PRN for SNACKS Escitalopram (Lexapro) 10 Mg Tab 10 MG PO DAILY Gabapentin (Neurontin) 400 Mg Cap 400 MG PO TID, CAP SUN,TUE,CARLOS A,SAT Gabapentin (Gabapentin) 400 Mg Cap 400 MG PO HS TAKE 400MG AT BEDTIME ONLY ON SATURDAY,SATURDAY, SATURDAY Lactobacillus Acidophilus (Lactinex) Tab 1 TAB PO BID, TAB Latanoprost 0.005% Oph (Xalatan 0.005% Oph) Soln 1 DROP OPL HS Levothyroxine Sodium (Synthroid) 100 Mcg Tab 100 MCG PO DAILY, 5 Refills Omeprazole (Prilosec) 20 Mg Capcr 20 MG PO DAILY Oxycodone/Acetaminophen 5MG/325MG (Percocet 5MG/325MG) Tab 1 TABLET PO Q4H PRN for Pain, TAB PAIN Sucralfate (Sucralfate) 1 Gm/10 Ml Arianna 1 GM PO QID, ML Discontinued Medications: Finasteride (Proscar) 5 Mg Tab 5 MG PO DAILY, TAB Midodrine (Midodrine HCl) 2.5 Mg Tab 2.5 MG PO UD GIVE BID EVERY SATURDAY,SATURDAY,FRIDAYS Discharge Exam Review of Systems: Constitutional: No chills, No fever ENT: No nasal symptoms, No sore throat, No trouble swallowing Respiratory: No cough, No shortness of breath Cardiovascular: No chest pain Abdomen: + diarrhea (improving), No constipation, No nausea, No pain, No vomiting Musculoskeletal: No calf pain, No swelling Hematologic / Lymphatic: No abnormal bleeding/bruising, No clotting problems Integumentary: No rash Physical Exam: General Appearance: WD/WN, no apparent distress Eyes: sclerae normal ENT: hearing grossly normal Neck: supple, no JVD, trachea midline Respiratory/Chest: lungs clear, normal breath sounds, no respiratory distress, no accessory muscle use Cardiovascular: regular rate, rhythm, no gallop, no murmur Abdomen / GI: non tender, soft, + abnormal bowel sounds (hyperactive) Extremities: no pedal edema, + pertinent finding (L BKA) Neurologic/Psychiatric: alert, oriented x 3 Skin: normal color, warm/dry Hospital Course ADMISSION: This is a 60 y/o male with PMHx of hypotension, ESRD requiring dialysis, DMII, CAD, hypothyroidism, A fib and depression presented to the ED complaining of hypotension, vomiting and lightheadedness. Patient states that he was at dialysis and he was not "feeling well". He was nauseated and vomit 1X there. Didn't notice any blood. He also complains of generalized body aches, mostly on b/l shoulder and back. Complains of headache and weakness. Per patient prior today he was doing well. Per EMS, the patient was at dialysis today, and was starting to be treated for a central line infection due to pain at the site, and was given Vancomycin. He then developed hypotension, diaphoresis, and altered mental status. When EMS arrived, the patient was hypotensive, but they were unable to get an oxygen or temperature on him. Reportedly he didn't take Midodrine today prior to dialysis. Currently he denies SOB, chest pain, abdominal pain, diarrhea, constipation, or any other weakness. HOSPITAL COURSE: Hypotension/Dehydration Post Dialysis with N/V - BP remains hypotensive but patient is asymptomatic and N/V resolved. Utilized Florinef and gave a trail of Solu-Medrol which produced a couple improved readings but was unsustained - Changed Midodrine to 2.5 mg BID daily instead of MWF - Added Florinef 0.1 mg daily - Rx provided Infection? Central Line Infection? Perihilar Infiltrate: - Tunnel catheter site with new dressing applied without evidence of erythema or drainage upon discharge - Vancomycin was given based on trough during hospital stay -- Patient mentioned plans to utilize this at dialysis -- Rx provided for Vancomycin 1000 mg IV to use per Sulfur Chloride Operator discretion with dialysis if level < 17 - Utilized Zosyn 3.375 mg with pharmacy dosing adjustments for this perihilar infiltrate -- Rx provided for Levaquin 750 mg to take one dose today (07/24) and the last dose (07/26) that is adequately dosed per renal function to finish a 7 day course -- Q48H dosing implemented as Levaquin is not adequately removed with dialysis ESRD: HD MWF - Nephrology was consulted to continue dialysis while hospitalized. Due to low BP ultrafiltration was avoided on Saturday's dialysis session. BPH: D/C'd Proscar as he is anuric - this medication was D/C'd on prior admission however remained on Med Rec during this admission Disposition: - PCP follow-up in 7-10 days with continuation of dialysis MWF - Patient lives at home with caregivers and arrangements made to ensure presence upon discharge. Transportation was implemented per case management. - He is afebrile without leukocytosis. He his hypotensive but andrew and reports feeling at his baseline. He is optimal for discharge with PCP follow-up. - Patient with ESRD on HD with hypotension which would increase his risk for readmission. Total Time Spent: Greater than 30 minutes This includes examination of the patient, discharge planning, medication reconciliation, and communication with other providers. Discharge Instructions Please refer to the electronic Patient Visit Report (Discharge Instructions) for additional information. Additional Copies To RV. Hudson MD
[2016-07-24 15:41] VITALS: BP 124/87; PULSE 79; TEMP 36.3; O2SAT 93
[2016-07-24 15:44] VITALS: BP 124/87; PULSE 79; TEMP 36.3; O2SAT 93
[2016-07-24] MEDS: NEPHROCAPS PO SCH (16:46)
[2016-08-14] MEDS ORDERED: ESCI10TA17 PO (00:53)
[2016-08-14] MEDS ORDERED: APIX1TAB3 PO (00:53)
[2016-08-14] MEDS ORDERED: B COLIQ PO (00:58)
[2016-08-14] MEDS ORDERED: CALC667C4 PO (08:57)
[2016-08-14] MEDS ORDERED: LCTX PO (11:59)
[2016-08-14] MEDS ORDERED: PRLSR20 PO (11:59)
[2016-08-14] MEDS ORDERED: GABA1CAP5 PO (12:09)
[2016-08-14] MEDS ORDERED: OXYC-57 PO (16:11)
[2016-08-29] MEDS ORDERED: OXYC-57 PO (14:32)
[2016-08-29] MEDS ORDERED: MIDO2.5T PO (14:41)
[2017-02-03] MEDS ORDERED: PRMT25 PO (09:24)
[2017-02-03] MEDS ORDERED: PRLSR20 PO ×2 (09:24)
[2017-02-03] MEDS ORDERED: OXYC-57 PO (09:24)
[2017-02-03] MEDS ORDERED: DXY100 PO (09:25)
[2017-02-03] MEDS ORDERED: INDO-22 PO (09:25)
[2017-02-08] MEDS ORDERED: ACET325T96 PO (09:05)
[2017-02-08] MEDS ORDERED: LEVO100T PO (11:59)
[2017-02-08] MEDS ORDERED: GABA1CAP5 PO ×2 (12:29→22:08)
[2017-02-08] MEDS ORDERED: LATA0.5S OPL (17:32)
[2017-02-08] MEDS ORDERED: SODIENE PR (17:32)
[2017-02-08] MEDS ORDERED: FINA5TAB PO ×2 (17:32→22:25)
[2017-02-08] MEDS ORDERED: POLY1POW2 PO (17:32)
[2017-02-08] MEDS ORDERED: BISA10SU3 PR (17:32)
[2017-02-12] MEDS ORDERED: APIX1TAB3 PO ×2 (10:37)
== END 2016-07-24 18:50 | disposition home health service (06) | DRG 312 ==
LOC: ENRESERVTM → ENRESERVDT → EDBD 15:36 → C.EDC 15:37 → C.2T 18:23 → C.MS4W 07-22 18:42
PROVIDERS: ADMIT Hospitalist; ATTEND Hospitalist
DX: I95.3 Hypotension of hemodialysis (principal); N18.6 End stage renal disease; J18.9 Pneumonia, unspecified organism; E87.2 Acidosis; E27.40 Unspecified adrenocortical insufficiency; J98.11 Atelectasis; I25.10 Atherosclerotic heart disease of native coronary artery without angina pectoris; K21.9 Gastro-esophageal reflux disease without esophagitis; F32.9 Major depressive disorder, single episode, unspecified; G62.9 Polyneuropathy, unspecified; E86.0 Dehydration; E11.319 Type 2 diabetes mellitus with unspecified diabetic retinopathy without macular edema; I50.9 Heart failure, unspecified; Z86.14 Personal history of Methicillin resistant Staphylococcus aureus infection; G43.909 Migraine, unspecified, not intractable, without status migrainosus; E66.01 Morbid (severe) obesity due to excess calories; E03.9 Hypothyroidism, unspecified; Z86.73 Personal history of transient ischemic attack (TIA), and cerebral infarction without residual deficits; I48.0 Paroxysmal atrial fibrillation; Z99.2 Dependence on renal dialysis; E11.21 Type 2 diabetes mellitus with diabetic nephropathy; K59.00 Constipation, unspecified; N40.0 Benign prostatic hyperplasia without lower urinary tract symptoms; E55.9 Vitamin D deficiency, unspecified; Z89.512 Acquired absence of left leg below knee; Z98.84 Bariatric surgery status; Z89.419 Acquired absence of unspecified great toe; Z80.9 Family history of malignant neoplasm, unspecified; Z82.49 Family history of ischemic heart disease and other diseases of the circulatory system; D63.8 Anemia in other chronic diseases classified elsewhere; N25.0 Renal osteodystrophy; H40.9 Unspecified glaucoma; I25.2 Old myocardial infarction; Z96.649 Presence of unspecified artificial hip joint

== ENCOUNTER → 2016-08-02 | Outpatient (CLI) | payer OTHER ==
[~2016-08-02] MED LIST changes: +ACET325T96 PO; +ACET650S10 PR; +APIX1TAB3 PO; +B COLIQ PO; +B-CO1TAB PO; +CHOL4POW3 PO; +DXY100 PO; +ESCI10TA17 PO; +FERR1TAB68 PO; +FINA5TAB PO; +FLR1 PO; +FLUD0.1T10 PO; +FLUO20CA35 PO; +INDO-22 PO; +LATA0.5S OPL; +LCTX PO; +LEVO100T PO; +LEVO1TAB35 PO; +LIDO1KIT TD; +MIDO2.5T PO; +MOML PO; +MTRCR45 TOP; +NRN400 PO; -NUTR-773 PO; +OMEP20CA9 PO; +OXYC-57 PO; +POLY1POW2 PO; +PRLSR20 PO; +PROM25TA9 PO; +SEVE800T7 PO; +SODIENE PR; +SUCR1TAB29 PO; +SUCR5SUS PO; -TEMA15CA4 PO; +VNCE1000 IV; +ZNTT/150 PO; +[UNRECOGNIZED DRUG - CODE] IV
--- NOTE | 2016-08-02 16:56 | DIAGNOSTIC IMAGING REPORT ---
LEFT ELBOW MIN 3 VIEWS ROUTINE CLINICAL HISTORY: Left elbow pain and swelling. Previous fracture. COMPARISON: Left elbow radiograph January 08, 2016. FINDINGS: Note is made of a displaced olecranon fracture. Alignment is similar to exam of January 08, 2016. Fracture margins are now sclerotic. This suggests a nonunited fracture. A left elbow joint effusion is suspected. No additional fractures are identified on this exam. There is soft tissue swelling. There is moderate vascular calcification. IMPRESSION: 1. No significant change in alignment of the displaced left olecranon fracture since prior exam. The findings suggest a nonunited fracture with intra-articular extension. 2. Left elbow joint effusion, a nonspecific finding. 3. Soft tissue swelling. Electronically signed by: Micha Dial M.D. 08/02/2016 4:55 PM Dictated Date/Time: 08/02/2016 4:52 PM
== END | disposition home or self-care (01) ==
LOC: C.RAD1850 16:12
PROVIDERS: ATTEND Nurse Practitioner Adult Health
DX: S52.032K Displaced fracture of olecranon process with intraarticular extension of left ulna, subsequent encounter for closed fracture with nonunion (principal); M25.422 Effusion, left elbow; X58.XXXD Exposure to other specified factors, subsequent encounter

== ENCOUNTER 2016-08-14 16:33 | Emergency (ER) | payer OTHER ==
[~2016-08-14] VITALS: Ht 170.2 cm; Wt 88.7 kg
[~2016-08-14 16:33] MED LIST changes: -ACET325T96 PO; -ACET650S10 PR; -B-CO1TAB PO; -CHOL4POW3 PO; -DXY100 PO; -FERR1TAB68 PO; -FINA5TAB PO; -FLUD0.1T10 PO; -FLUO20CA35 PO; -INDO-22 PO; -LATA0.5S OPL; -LEVO100T PO; -LIDO1KIT TD; -MOML PO; -NRN400 PO; -OMEP20CA9 PO; -POLY1POW2 PO; -PRMT25 PO; -PROM25TA9 PO; -SEVE800T7 PO; -SODIENE PR; -SUCR1TAB29 PO; -SUCR5SUS PO; -VNCE1000 IV; -ZNTT/150 PO
[2016-08-14 16:40] VITALS: TEMP 37; Ht 170.2 cm; Wt 88.7 kg
--- NOTE | 2016-08-14 16:42 | EMERGENCY ROOM VISIT NOTE ---
History Report prepared by Jason: João Lee Under the Supervision of: Dr. Jose Guadalupe Ross M.D. First contact with patient: 16:35 Chief Complaint: WEAKNESS Stated Complaint: WEAKNESS History of Present Illness The patient is a 60 year old male who presents to the Emergency Room with no complaints. He was sent to the ED because "he cannot be alone". The patient says he has no complaints and feels great. He did not want to come to the hospital. Source of History: patient, nursing staff Onset: n/a Position: other (n/a) Symptom Intensity: n/a Quality: other (n/a) Timing: other (n/a) Note: The patient has no complaints. Review of Systems See HPI for pertinent positives & negatives. A total of 10 systems reviewed and were otherwise negative. Past Medical & Surgical Medical Problems: (1) Anemia (2) Arrhythmia (3) Bacteremia (4) CAD (coronary artery disease) (5) Congestive Heart Failure Nos (6) Depression (7) Diab W Oth Spec Manifest, Type Ii Or Unspec Type, Not Uncntr (8) Diabetic retinopathy (9) DM type 2 (diabetes mellitus, type 2) (10) End stage renal disease (11) ESRD (end stage renal disease) on dialysis (12) Fluency disorder following cerebrovascular accident (13) History of Clostridium difficile colitis (14) History of CVA (cerebrovascular accident) (15) History of GI bleed (16) History of methicillin resistant staphylococcus aureus (MRSA) (17) History of non-ST elevation myocardial infarction (NSTEMI) (18) Hyperkalemia (19) hyperkalemia, ESRD, wrist fx (20) Hyperlipidemia Nec/Nos (21) Hypertension Nos (22) Hypothyroidism Nos (23) Migraine (24) Morbid obesity (25) Peritonitis (26) Polyneuropathy in diabetes (27) Proteinuria (28) Vitamin D deficiency Surgical Problems: (1) Great toe amputation status (2) H/O gastric bypass (3) H/O total hip arthroplasty (4) History of cholecystectomy (5) History of colonoscopy with polypectomy (6) History of left below knee amputation Family History FH: heart disease FATHER FHx: cancer FATHER Hypertension Social History Smoking Status: Never Smoker Alcohol Use: occasionally Drug Use: none Marital Status: single Housing Status: jail Occupation Status: disabled Current/Historical Medications Scheduled Apixaban (Eliquis), 5 MG PO Q12 B-Complex W/ C & Folic Acid (Nephronex), 5 ML PO BID Calcium Acetate (Phoslo 667 Mg), 2,001 MG PO TIDM Escitalopram (Lexapro), 10 MG PO DAILY Finasteride (Proscar), 5 MG PO DAILY Fludrocortisone Acetate (Florinef), 0.1 MG PO DAILY Gabapentin (Neurontin), 400 MG PO UD Gabapentin (Gabapentin), 400 MG PO UD Lactobacillus Acidophilus (Lactinex), 1 TAB PO BID Latanoprost (Xalatan 0.005% Oph Katya), 1 DROP OPL HS Levothyroxine Sodium (Synthroid), 100 MCG PO DAILY Metronidazole Hcl (Metronidazole), 1 APPLN TOP DAILY Midodrine Hcl (Midodrine Hcl), 2.5 MG PO BID Omeprazole (Prilosec), 20 MG PO DAILY Sucralfate (Sucralfate), 1 GM PO QID Scheduled PRN Acetaminophen Tab (Tylenol), 325-650 MG PO Q6H PRN for Pain or Fever Bisacodyl (Dulcolax), 1 SUPP TN DAILY PRN for Constipation Oxycodone/Acetaminophen 5MG/325MG (Percocet 5MG/325MG), 1 TABLET PO Q4H PRN for Pain Polyethylene Glycol 3350 (Bulk (Polyethylene Glycol 3350), 17 GM PO DAILY PRN for Constipation Sodium Phosphate/Biphosphate (Fleet Enema), 1 EA TN UD PRN for Constipation Vancomycin HCl (Vancomycin HCl), 1,000 MG IV UD PRN for Random Level Less Than 17 Allergies Coded Allergies: No Known Allergies (Verified , `, 05/01/16) Physical Exam Vital Signs Date Time Temp Pulse Resp B/P Pulse Ox O2 Delivery O2 Flow Rate FiO2 08/15/16 04:33 60 18 95/53 95 08/15/16 03:35 64 18 116/70 94 Room Air 08/15/16 02:36 54 08/15/16 01:53 56 18 104/63 95 08/15/16 00:16 56 20 101/60 95 Room Air 08/14/16 23:57 95 Room Air 08/14/16 22:54 57 20 106/66 95 Room Air 08/14/16 22:15 57 08/14/16 20:45 78 20 141/62 94 Room Air 08/14/16 18:40 84 18 149/54 93 Room Air 08/14/16 17:19 58 08/14/16 16:40 37.0 24 18 98/62 91 Room Air Physical Exam GENERAL: Patient is a healthy-appearing well-nourished HEAD: Normocephalic atraumatic EYES: Ocular movements intact pupils equal and react to light OROPHARYNX mucous membranes are moist no exudates present no erythema or edema present NECK: Supple no nuchal rigidity CHEST: Good equal expansion LUNGS: Clear and equal to auscultation CARDIAC: Normal S1 and S2 ABDOMEN: Soft nontender no guarding BACK: No CVA tenderness EXTREMITIES: No pain upon palpation normal muscle strength in all groups no clubbing cyanosis or edema NEURO: Patient is following commands is answering questions appropriately. Alert and oriented x3 Cranial Nerves 2-12 grossly intact Medical Decision & Procedures Medications Administered Medications (Trade) Dose Ordered Sig/Rigoberto Route Start Time Stop Time Status Last Admin Dose Admin Midodrine (Proamatine Tab) 2.5 mg NOW STAT PO 08/14/16 23:28 08/14/16 23:39 DC 08/15/16 00:09 2.5 MG Famotidine (Pepcid Tab) 20 mg NOW STAT PO 08/14/16 23:28 08/14/16 23:39 DC 08/15/16 00:09 20 MG ED Course 1635: Past medical records reviewed. The patient was evaluated in room A2. A complete history and physical examination was performed. 1641: I contacted case management to get involved with this case due to the patient having absolutely no complaints. 1743: I was informed that all of his caregivers have called off today and did not come see him. 0030: The patient is still in the ED. His caregivers' company will be contacted in the morning. Medical Decision The patient has no complaints at this time. This is a 60-year-old male who was appropriately symptoms emergency department by home health nursing because they were unable to cover his shifts at home due to call offs. The patient has no complaints and does not want to be here. He wishes to go home. He apparently needs 24 7 nursing which the outside facility was unable to provide. He does receive dialysis on Saturday and Saturday. I did discuss this case with case management and feel that the patient can be placed in a.SNFF. We were unable to place the patient in a snff. Therefore the patient was boarded overnight in the emergency department until 4: 30 in the morning. At that time he'll be transported for dialysis. The patient was given his home medications. Impression Primary Impression: Caregiver has difficulty performing caretaking Scribe Attestation The scribe's documentation has been prepared under my direction and personally reviewed by me in its entirety. I confirm that the note above accurately reflects all work, treatment, procedures, and medical decision making performed by me. Departure Information Dispostion Still a Patient Referrals RV. Hudson MD (PCP) Patient Instructions [facility]
[2016-08-14] MEDS ORDERED: NRN400 PO (17:16)
[2016-08-14] MEDS ORDERED: SUCR5SUS PO (17:17)
[2016-08-14] MEDS ORDERED: VNCE1000 IV (17:32)
[2016-08-14] MEDS ORDERED: FLUD0.1T10 PO (17:32)
[2016-08-14] MEDS ORDERED: MIDO2.5T PO (17:32)
[2016-08-14] MEDS ORDERED: FAMOTIDINE 20 MG TAB PO STA (23:28)
[2016-08-14] MEDS ORDERED: MIDODRINE 2.5 MG TAB PO STA (23:28)
[2016-08-14] MEDS ORDERED: GABAPENTIN 250 MG/5 ML 470 ML BTL PO SCH (23:30)
[2016-08-14] MEDS ORDERED: POLYETHYLENE (MIRALAX) 17 GM PACK PO PRN (23:30)
[2016-08-14] MEDS ORDERED: OXYCODONE/ACETAMINOPHEN 5-325 TAB PO PRN (23:30)
[2016-08-14 23:57] VITALS: O2SAT 95
[2016-08-15 04:33] VITALS: BP 95/53; PULSE 60; O2SAT 95
[2016-08-15] MEDS ORDERED: LEVOTHYROXINE 100 MCG TAB PO SCH (07:00)
[2016-08-15] MEDS ORDERED: ESCITALOPRAM OXALATE 10 MG TAB PO SCH (09:00)
[2016-08-15] MEDS ORDERED: FLUDROCORTISONE ACETATE 0.1 MG TAB PO SCH (09:00)
[2016-08-15] MEDS ORDERED: APIXABAN 2.5 MG TAB PO SCH (09:00)
[2016-08-15] MEDS ORDERED: SUCRALFATE 1 GM/10 ML UDC PO SCH (09:00)
[2016-08-15] MEDS ORDERED: METRONIDAZOLE 0.75% TOPICAL GEL 45 GM TUBE TOP SCH (09:00)
[2016-08-15] MEDS ORDERED: FINASTERIDE 5 MG TAB PO SCH (09:00)
[2016-08-15] MEDS ORDERED: LATANOPROST 0.005% OP SOLN 2.5 ML BTL OP SCH (21:00)
[2016-08-29] MEDS ORDERED: OXYC-57 PO (14:32)
[2016-08-29] MEDS ORDERED: MIDO2.5T PO (14:41)
[2017-02-03] MEDS ORDERED: PRMT25 PO (09:24)
[2017-02-03] MEDS ORDERED: PRLSR20 PO ×2 (09:24)
[2017-02-03] MEDS ORDERED: OXYC-57 PO (09:24)
[2017-02-03] MEDS ORDERED: DXY100 PO (09:25)
[2017-02-03] MEDS ORDERED: INDO-22 PO (09:25)
[2017-02-08] MEDS ORDERED: ACET325T96 PO (09:05)
[2017-02-08] MEDS ORDERED: LEVO100T PO (11:59)
[2017-02-08] MEDS ORDERED: GABA1CAP5 PO ×2 (12:29→22:08)
[2017-02-08] MEDS ORDERED: SODIENE PR (17:32)
[2017-02-08] MEDS ORDERED: LATA0.5S OPL (17:32)
[2017-02-08] MEDS ORDERED: FINA5TAB PO ×2 (17:32→22:25)
[2017-02-08] MEDS ORDERED: BISA10SU3 PR (17:32)
[2017-02-08] MEDS ORDERED: POLY1POW2 PO (17:32)
[2017-02-12] MEDS ORDERED: APIX1TAB3 PO ×2 (10:37)
== END 2016-08-15 04:36 | disposition home or self-care (01) ==
LOC: EDBD 16:33 → C.EDA 16:34
DX: Z74.2 Need for assistance at home and no other household member able to render care (principal); N18.6 End stage renal disease; Z99.2 Dependence on renal dialysis; D64.9 Anemia, unspecified; I49.9 Cardiac arrhythmia, unspecified; I25.10 Atherosclerotic heart disease of native coronary artery without angina pectoris; I50.9 Heart failure, unspecified; F32.9 Major depressive disorder, single episode, unspecified; E11.40 Type 2 diabetes mellitus with diabetic neuropathy, unspecified; Z86.73 Personal history of transient ischemic attack (TIA), and cerebral infarction without residual deficits; Z86.14 Personal history of Methicillin resistant Staphylococcus aureus infection; I25.2 Old myocardial infarction; E78.5 Hyperlipidemia, unspecified; E87.5 Hyperkalemia; I12.0 Hypertensive chronic kidney disease with stage 5 chronic kidney disease or end stage renal disease; E03.9 Hypothyroidism, unspecified; G43.909 Migraine, unspecified, not intractable, without status migrainosus; E66.01 Morbid (severe) obesity due to excess calories; E55.9 Vitamin D deficiency, unspecified; R80.9 Proteinuria, unspecified; Z98.84 Bariatric surgery status; Z96.649 Presence of unspecified artificial hip joint; Z89.512 Acquired absence of left leg below knee; Z82.49 Family history of ischemic heart disease and other diseases of the circulatory system; Z80.9 Family history of malignant neoplasm, unspecified; Z79.899 Other long term (current) drug therapy

== ENCOUNTER 2016-08-17 11:19 | Inpatient (IN) | payer OTHER ==
[~2016-08-17] VITALS: Ht 170.2 cm; Wt 84.2 kg
[~2016-08-17 11:19] MED LIST changes: -BISA10SU3 PR; -FLR1 PO; +FLUD0.1T10 PO; -LATA0.009 OPL; -LEVO1TAB35 PO; +NRN400 PO; -POLY335019 PO; +SUCR5SUS PO; +VNCE1000 IV; -[UNRECOGNIZED DRUG - CODE] IV
--- NOTE | 2016-08-17 13:14 | EMERGENCY ROOM VISIT NOTE ---
History Report prepared by Jason: Geovanny Boswell Under the Supervision of: Dr. Farida Figueroa D.O. First contact with patient: 12:12 Chief Complaint: OTHER COMPLAINT Stated Complaint: REFERRAL History of Present Illness The patient is a 60 year old male who presents to the Emergency Room for difficulty with caretakers occurring for the past few days. The patient's home health visiting nurses are refusing to see him due to concerns about patient's possible inappropriate behavior. The patient currently denies any pain. He denies fevers, chills, chest pain, shortness of breath, or any other complaints. Source of History: patient Onset: a few days ago Symptom Intensity: No pain Quality: other (difficulty with caretakers ) Timing: other (persistent) Associated Symptoms: No SOB, No chest pain, No chills, No fevers Review of Systems See HPI for pertinent positives & negatives. A total of 10 systems reviewed and were otherwise negative. Past Medical & Surgical Medical Problems: (1) Anemia (2) Arrhythmia (3) Bacteremia (4) CAD (coronary artery disease) (5) Congestive Heart Failure Nos (6) Depression (7) Diab W Oth Spec Manifest, Type Ii Or Unspec Type, Not Uncntr (8) Diabetic retinopathy (9) DM type 2 (diabetes mellitus, type 2) (10) End stage renal disease (11) ESRD (end stage renal disease) on dialysis (12) Fluency disorder following cerebrovascular accident (13) History of Clostridium difficile colitis (14) History of CVA (cerebrovascular accident) (15) History of GI bleed (16) History of methicillin resistant staphylococcus aureus (MRSA) (17) History of non-ST elevation myocardial infarction (NSTEMI) (18) Hyperkalemia (19) hyperkalemia, ESRD, wrist fx (20) Hyperlipidemia Nec/Nos (21) Hypertension Nos (22) Hypothyroidism Nos (23) Migraine (24) Morbid obesity (25) Peritonitis (26) Polyneuropathy in diabetes (27) Proteinuria (28) Vitamin D deficiency Surgical Problems: (1) Great toe amputation status (2) H/O gastric bypass (3) H/O total hip arthroplasty (4) History of cholecystectomy (5) History of colonoscopy with polypectomy (6) History of left below knee amputation Family History FH: heart disease FATHER FHx: cancer FATHER Hypertension Social History Smoking Status: Never Smoker Alcohol Use: occasionally Drug Use: none Marital Status: single Housing Status: half-way Occupation Status: disabled Current/Historical Medications Scheduled Apixaban (Eliquis), 5 MG PO Q12 B-Complex W/ C & Folic Acid (Nephronex), 5 ML PO BID Calcium Acetate (Phoslo 667 Mg), 2,001 MG PO TIDM Escitalopram (Lexapro), 10 MG PO DAILY Finasteride (Proscar), 5 MG PO DAILY Fludrocortisone Acetate (Florinef), 0.1 MG PO DAILY Gabapentin (Neurontin), 400 MG PO UD Gabapentin (Gabapentin), 400 MG PO UD Lactobacillus Acidophilus (Lactinex), 1 TAB PO BID Latanoprost (Xalatan 0.005% Oph Katya), 1 DROP OPL HS Levothyroxine Sodium (Synthroid), 100 MCG PO DAILY Metronidazole Hcl (Metronidazole), 1 APPLN TOP DAILY Midodrine Hcl (Midodrine Hcl), 2.5 MG PO BID Omeprazole (Prilosec), 20 MG PO DAILY Sucralfate (Sucralfate), 1 GM PO QID Scheduled PRN Acetaminophen Tab (Tylenol), 325-650 MG PO Q6H PRN for Pain or Fever Bisacodyl (Dulcolax), 1 SUPP AK DAILY PRN for Constipation Oxycodone/Acetaminophen 5MG/325MG (Percocet 5MG/325MG), 1 TABLET PO Q4H PRN for Pain Polyethylene Glycol 3350 (Bulk (Polyethylene Glycol 3350), 17 GM PO DAILY PRN for Constipation Sodium Phosphate/Biphosphate (Fleet Enema), 1 EA AK UD PRN for Constipation Vancomycin HCl (Vancomycin HCl), 1,000 MG IV UD PRN for Random Level Less Than 17 Allergies Coded Allergies: No Known Allergies (Verified , `, 05/01/16) Physical Exam Vital Signs Date Time Temp Pulse Resp B/P Pulse Ox O2 Delivery O2 Flow Rate FiO2 08/17/16 19:20 73 20 94/50 93 08/17/16 16:10 76 18 73/38 Room Air 08/17/16 14:30 68 20 104/42 98 Room Air 08/17/16 11:22 36.3 67 18 63/45 98 Room Air Physical Exam HEENT: Head - normocephalic and atraumatic Pupils are equal, round, and reactive to light. Extraocular eye muscles are intact, and sclera are anicteric. Nose - moist nasal mucosa without discharge. Mouth - moist buccal mucosa. Oropharynx is nonerythematous and there is no tonsillar exudate or edema noted. Neck: Supple; no JVD, nuchal rigidity. There is no cervical lymphadenopathy. Heart: Regular rate and rhythm. There is a normal S1 and S2 with no murmurs, clicks, or gallops appreciated. Lungs: Clear to auscultation bilaterally with no wheezes, rales, or rhonchi. Abdomen: Soft, completely nontender, nondistended, with good bowel sounds. There are no palpable pulsatile masses or hepatosplenomegaly. There is no guarding, rigidity, or rebound noted. Skin: warm and dry with good turgor and no rashes. Neuro: The exam is nonfocal. Medical Decision & Procedures Laboratory Results 08/17/16 19:03 08/17/16 19:03 Test 08/17/16 19:03 Red Blood Count 3.90 M/uL (4.7-6.1) Mean Corpuscular Volume 92.8 fL (80-100) Mean Corpuscular Hemoglobin 29.0 pg (25-34) Mean Corpuscular Hemoglobin Concent 31.2 g/dl (32-36) RDW Standard Deviation 53.5 fL (36.4-46.3) RDW Coefficient of Variation 16.0 % (11.5-14.5) Mean Platelet Volume 10.5 fL (7.4-10.4) Anion Gap 11.0 mmol/L (3-11) Est Creatinine Clear Calc Drug Dose 12.8 ml/min Estimated GFR () 14.4 Estimated GFR (Non- 12.4 BUN/Creatinine Ratio 6.0 (10-20) Calcium Level 8.8 mg/dl (8.5-10.1) Laboratory results per my review. ED Course 1212: Past medical records reviewed. The patient was evaluated in room C01B. A complete history and physical exam was performed. The ED medical case worker are working on possible placement for this patient as he is unable to secure in- home care. 1431: The patient ate lunch. I am waiting to hear about placement in other assisted living facilities. 1628: The medical case worker explained that they have not yet found a facility to accept the patient. 1659: The medical case worker informed me that some other places have rejected the patient. [facility] again refused to provide further care for the patient because they do not think they can provide the care safely. 3-Michael is doing an evaluation of the patient. 1738: 3-Michael felt that the patient had no psychiatric needs. 1752: The medical case worker is calling the patient's power of insurance attorney who is the patient's sister. 1808: I spoke with Pamella Aguilera, the director of case management, who recommended admission to the hospital for failure to thrive. She has tried to place the patient and has been unsuccessful. She also spoke with the patient's sister who is the power of insurance attorney. The patient's sister and the patient's mother are unable to care for the patient. 1814: Upon reevaluation, I explained to the patient that he would require further inpatient care as we have no one willing to care for him. The patient will be evaluated for further management and care. 1816: I discussed the case with Dr. Martinez. He will sign the case out to Dr. Wilkins. Medical Decision This is a 60 year old male who presents to the Emergency Room for difficulty with caretakers. The patient has a history of end-stage renal disease on dialysis. He currently receives in-home care from [facility] [place]. They are refusing to send staff into his home anymore because of his inappropriate behavior. The patient requires 24-hour assistance. His power of insurance attorney and his mother are unable to care for him. Our case management Department has referred the patient to multiple different assisted living facilities who are unwilling to take him. Protective services has been contacted by case management and they will evaluate the patient at some point. I discussed the case with the [facility] hospitalist group and they will evaluate for further care. Laboratory interpretation: BUN 29, creatinine 4.8, glucose 160, hemoglobin 11.3 , and white blood cell count 4.0 Impression Primary Impression: Failure to thrive Scribe Attestation The scribe's documentation has been prepared under my direction and personally reviewed by me in its entirety. I confirm that the note above accurately reflects all work, treatment, procedures, and medical decision making performed by me. Departure Information Dispostion Being Evaluated By Hospitalist Referrals RV. Hudson MD (PCP) Patient Instructions [facility]
[2016-08-17 19:13] LABS: HEMATOCRIT 36.2 % (42-52); MEAN CELL VOLUME 92.8 fL (80-100); MEAN CORPUSCULAR HGB CONC 31.2 g/dl (32-36); MEAN PLATELET VOLUME 10.5 fL (7.4-10.4); PLATELET COUNT 226 K/uL (130-400); WHITE BLOOD COUNT 4.03 K/uL (4.8-10.8)
[2016-08-17 19:46] LABS: CALCIUM 8.8 mg/dl (8.5-10.1); POTASSIUM 4.5 mmol/L (3.5-5.1)
[2016-08-17 19:47] LABS: CREATININE 4.8 mg/dl (0.60-1.40)
[2016-08-17] MEDS ORDERED: BISACODYL 10 MG SUPP PR PRN (21:00)
[2016-08-17] MEDS ORDERED: OXYCODONE/ACETAMINOPHEN 5-325 TAB PO PRN (21:00)
[2016-08-17] MEDS ORDERED: ONDANSETRON INJ 2 MG/ML 2 ML VIAL IV PRN (21:15)
[2016-08-17] MEDS ORDERED: ALUMINUM/MAGNESIUM/SIMETH (MAALOX MAX) 30 ML UDC PO PRN (21:15)
[2016-08-17] MEDS ORDERED: POLYETHYLENE (MIRALAX) 17 GM PACK PO PRN (21:15)
[2016-08-17] MEDS ORDERED: MAGNESIUM HYDROXIDE SUSP 30 ML UDC PO PRN (21:15)
--- NOTE | 2016-08-17 21:45 | History and Physical ---
History & Physical Date of Service Aug 17, 2016. History & Physical REASON FOR ADMISSION: Severe abdominal pain following introduction of a peritoneal catheter. HISTORY OF PRESENT ILLNESS: This is a 60-year-old male, with a history of ESRD , CAD, CHF and increasingly inappropriate behavior. He presents to the hospital frequently due to various issues including infection and dialysis- related hypotension. He is often sited as being inappropriate with female staff. He resides at home and is dependent on 24 hour care. He was sent to the hospital as the staff taking care of this pt are now refusing to do so due to abusive and sexually inappropriate behavior. While the pt was in the ER, the catalytic case operator had tried unsuccessfully to have him placed in a facility. Family members were also contacted and have stated that they would not be able to care for him. The pt is therefore admitted due to his need for 24 hour care and lack of placement options. He denies any new clinical issues at the time of admission. Denies CP, SOB, N/V, fevers. He was recently treated for C-diff and recently transitioned from peritoneal to hemodialysis. 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 Anemia of chronic disease with baseline hemoglobin 8.5 to 9. 2. Depression. 3. CHF, grade 1 diastolic with a preserved ejection fraction. 4. Morbid obesity. 5. Type 2 diabetes. 6. Hypertension. 7. Coronary artery disease with history of non-ST elevation myocardial infarction. 8. Hyperlipidemia. 9. Hypothyroidism. 10. History of migraine headaches. 11. History of CVA with mild expressive deficits. 12. Neuropathy. 13. Peripheral vascular disease with resultant left BKA and a great toe amputation. 14. History of DVT. 15. Glaucoma. 16. Dialysis-related hypotension. 17. Possible history of ventricular arrhythmias. PAST SURGICAL HISTORY: 1. Left gdayt-pzz-mgmv amputation. 2. Gastric bypass surgery. 3. Peritoneal dialysis catheter placement recently. 4. Cholecystectomy. MEDICATIONS: 1. Amiodarone 200 mg daily. 2. Eliquis 2.5 mg b.i.d. 3. Dulcolax 5 mg p.r.n. 4. PhosLo 667 mg t.i.d. 5. Proscar 5 mg daily. 6. Gabapentin 400 mg at bedtime and 4 mg t.i.d. 7. Lactinex 1 tab b.i.d. 8. Xalatan 0.005% at bedtime. 9. Levothyroxine 100 mcg daily. 10. Midodrine 2.5 mg 3 times a week. 11. Temazepam 15 mg at bedtime p.r.n. 12. Enteral nutrition formula 1 can daily supplement. 13. Omeprazole 20 mg daily. 14. Percocet 1 tab q. 6 hours p.r.n. 15. MiraLax p.r.n. 16. Nephronex liquid 5 mL p.o. b.i.d. 17. Florinef 0.1 mg daily SOCIAL HISTORY: The patient is care dependent and resides in a nursing facility. He has no history of smoking and rarely drinks alcohol. FAMILY HISTORY: Positive for diabetes and heart disease. REVIEW OF SYSTEMS: It is noted that the patient is not a reliable historian. GENERAL: Denies fevers or rigors. CARDIOVASCULAR: Denies chest pain, palpitations, PND, orthopnea. RESPIRATORY: Denies shortness of breath, productive cough or wheezing. GASTROINTESTINAL: Positive for severe abdominal pain following flushing of his peritoneal catheter, as noted above. No diarrhea or constipation. GENITOURINARY: The patient does not make any urine. All other systems reviewed and negative. PHYSICAL EXAMINATION: VITAL SIGNS: temperature 36.8, satting at 94% on room air. GENERAL: This is a morbid obese, slightly lethargic, middle-aged male. He is awake, alert, oriented x3 and in no distress. HEAD AND NECK: No JVD, no bruits, thrush or icterus. HEART: S1, S2, faint heart sounds, regular, a possible systolic murmur. Exam is limited. LUNGS: Exam is limited. Clear to auscultation on poor effort, no wheezing or crackles are audible. ABDOMEN: Nontender in all quadrants. Appears soft, nondistended with positive bowel sounds. The area surrounding the peritoneal catheter is clean. There is no overt induration or exudate. EXTREMITIES: Left BKA. There is edema on the right. NEUROLOGICAL: The patient is oriented, maintains his coordination, answers questions appropriately and does not exhibit any focal deficits. SKIN: Negative for acute rashes. Labs - K 4.5 BUN/Creat 29/4.8, WBC 4, Hb 11.3 ASSESSMENT AND PLAN: 60-year-old male, with a history of ESRD, CAD, CHF and increasingly inappropriate behavior. He presents to the hospital frequently due to various issues including infection and dialysis-related hypotension. He is often sited as being inappropriate with female staff. He resides at home and is dependent on 24 hour care. He was sent to the hospital as the staff taking care of this pt are now refusing to do so due to abusive and sexually inappropriate behavior. While the pt was in the ER, the catalytic case operator had tried unsuccessfully to have him placed in a facility. Family members were also contacted and have stated that they would not be able to care for him. The pt is therefore admitted due to his need for 24 hour care and lack of placement options. He denies any new clinical issues at the time of admission. Denies CP , SOB, N/V, fevers. He was recently treated for C-diff and recently transitioned from peritoneal to hemodialysis. 1. Inappropriate behavior. We will consult mental health. In the interim I have requested male nursing and that female staff be chaperoned when treating pt. We will need to eventaully find the pt placement - mental health will be consulted. 2. End-stage renal disease. We will contact the patient's handy man for dialysis while he is in the hospital. 3. History of deep venous thrombosis. The patient will remain on apixaban. 4. Diabetes. He will be placed on a sliding scale in the hospital. 5. Anemia Hemoglobin is currently at baseline. 6. Diastolic chronic heart failure. The patient is euvolemic at present, does not complain of shortness of breath and will be scheduled for dialysis, regardless, to avoid volume overload. 7. History of coronary artery disease. The patient is not currently on related medications. This is a possibility addressed with his physician prior to discharge, no evidence of acute coronary syndrome at present. 8. Hypothyroidism. Continue Synthroid. 9. It is noted that there is an order for Vancomycin PRN on his med list - I could not verify with his nursing co if he is currently receiving Vanc at this time and we will need to do so AM 10. Hypotension - is intermittent in this pt - normally asymptomatic and related to dialysis status - cont Chanel Erazo Total time for this admit, including chart review, discussion with the ER physician, review of labs, imaging, extensive previous records and discussion with the patient, 38 Minutes. Dictated: 03/01/16 0010 Transcribed: 03/01/16 0125 <Electronically signed by Zuhair Wilkins MD>
[2016-08-18] VITALS (7 sets, daily range): BP systolic 72–120; BP diastolic 44–79; PULSE 60–66; TEMP 36.6–36.8; O2SAT 91–92; Ht 170.2 cm; Wt 84.2 kg
[2016-08-18] MEDS: SUCRALFATE 1 GM/10 ML UDC PO SCH ×5 (01:18→20:43)
[2016-08-18] MEDS: LATANOPROST 0.005% OP SOLN 2.5 ML BTL OPL SCH ×2 (01:18→20:43)
[2016-08-18] MEDS: LACTOBACILLUS ACIDOPHILUS (FLORANEX) TAB PO SCH ×3 (01:20→20:44)
[2016-08-18] MEDS: APIXABAN 2.5 MG TAB PO SCH ×3 (01:24→20:45)
[2016-08-18] MEDS: GABAPENTIN 400 MG CAP PO SCH ×4 (01:24→20:43)
[2016-08-18] MEDS: MIDODRINE 2.5 MG TAB PO SCH ×3 (01:25→17:50)
[2016-08-18] MEDS: NEPHROCAPS PO SCH ×3 (01:30→20:45)
[2016-08-18] MEDS: LEVOTHYROXINE 100 MCG TAB PO SCH (06:08)
[2016-08-18] MEDS: PANTOprazole SOD 40 MG TAB PO SCH (08:53)
[2016-08-18] MEDS: CALCIUM ACETATE 667MG GELCAP PO SCH ×3 (08:54→17:14)
[2016-08-18] MEDS: ESCITALOPRAM OXALATE 10 MG TAB PO SCH (08:55)
[2016-08-18] MEDS: FINASTERIDE 5 MG TAB PO SCH (08:55)
[2016-08-18] MEDS: FLUDROCORTISONE ACETATE 0.1 MG TAB PO SCH (08:57)
[2016-08-18] MEDS: METRONIDAZOLE 0.75% TOPICAL GEL 45 GM TUBE TOP SCH (09:06)
--- NOTE | 2016-08-18 09:26 | Progress Note ---
Subjective Date of Service: Aug 18, 2016. Subjective Pt evaluation today including: conversation w/ patient, physical exam, chart review, lab review, review of studies, conversation w/ leasing consultant, review of inpatient medication list Doing okay, conversational, no complaining, eating okay, no diarrhea or constipation, no urine, on dialysis per right anterior chest dialysis catheter, Catheter for [place] dialysis was removed, normal on PD Problem List Medical Problems: (1) Abdominal pain Status: Acute (2) C. difficile colitis Status: Acute (3) Caregiver has difficulty performing caretaking Status: Acute (4) Colitis Status: Acute (5) Dehydration Status: Acute (6) Failure to thrive Status: Acute (7) Fever Status: Acute (8) Infection associated with peritoneal dialysis catheter Status: Acute (9) Lactic acidosis Status: Acute (10) Periumbilical abdominal pain Status: Acute (11) Pneumonia involving right lung Status: Acute (12) Sepsis Status: Acute (13) Septic shock Status: Acute (14) Vomiting Status: Acute (15) Weakness Status: Acute Review of Systems Constitutional: + fatigue, + weakness, No chills, No fever, No problem reported , No see HPI, No sweats, No weight loss Eyes: No diplopia, No discharge, No eye pain, No problem reported, No redness, No see HPI, No worsening of vision ENT: No dental problems, No hearing loss, No nasal symptoms, No problem reported, No see HPI, No sore throat, No tinnitus, No trouble swallowing, No unusual epistaxis Respiratory: No cough, No dyspnea at rest, No dyspnea on exertion, No hemoptysis, No problem reported, No see HPI, No shortness of breath, No sputum, No wheezing Cardiac: No PND, No chest pain, No claudication, No edema, No orthopnea, No palpitations, No problem reported, No see HPI Abdomen: No GI bleeding, No constipation, No diarrhea, No nausea, No pain, No problem reported, No see HPI, No vomiting Musculoskeletal: + joint pain (in left elbow with history of elbow fracture which is not new,) Male : No dysuria Neurologic: No balance problems, No memory loss, No numbness/tingling, No paralysis, No problem reported, No see HPI, No vertigo, No weakness Psychiatric: No anhedonism, No anxiety, No depression symptoms, No insomnia, No problem reported, No see HPI, No substance abuse Heme: No abnormal bleeding/bruising, No clotting problems, No night sweats, No problem reported, No see HPI, No swollen lymph nodes Endo: No excessive thirst, No excessive urination, No fatigue, No problem reported, No see HPI Skin: No bleeding, No color change, No itch, No new/changing skin lesions, No problem reported, No rash, No see HPI Objective Vital Signs Date Time Temp Pulse Resp B/P Pulse Ox O2 Delivery O2 Flow Rate FiO2 08/18/16 09:14 92 Room Air 08/18/16 07:23 36.6 64 20 72/44 92 08/18/16 02:00 36.7 66 16 120/79 92 Room Air 08/18/16 01:00 92 Room Air 08/18/16 00:38 36.7 66 16 120/79 92 Room Air 08/17/16 21:36 69 81/51 93 Room Air 08/17/16 19:20 73 20 94/50 93 08/17/16 16:10 76 18 73/38 Room Air 08/17/16 14:30 68 20 104/42 98 Room Air 08/17/16 11:22 36.3 67 18 63/45 98 Room Air Physical Exam General Appearance: WD/WN, no apparent distress, + obese Eyes: normal inspection, PERRL, EOMI, sclerae normal ENT: normal ENT inspection, hearing grossly normal, pharynx normal Neck: supple, no adenopathy, thyroid normal, no JVD, no carotid bruits, trachea midline Respiratory/Chest: chest non-tender, normal breath sounds, no respiratory distress, no accessory muscle use, + decreased breath sounds, + pertinent finding (right anterior chest wall has dialysis catheter in place) Cardiovascular: regular rate, rhythm, no edema, no gallop, no JVD, no murmur Abdomen: normal bowel sounds, non tender, soft, no organomegaly, no pulsatile mass Extremities: normal range of motion, non-tender, normal inspection, no pedal edema, no calf tenderness, normal capillary refill, pelvis stable, + pertinent finding (left lower extremity S/P amputation) Neurologic/Psychiatric: hand knitter II-XII nml as tested, no motor/sensory deficits, alert, normal mood/affect, oriented x 3 Skin: normal color, warm/dry, no rash Lymphatic: no adenopathy Laboratory Results Last 24 Hours Test 08/17/16 19:03 08/17/16 23:30 White Blood Count 4.03 K/uL Red Blood Count 3.90 M/uL Hemoglobin 11.3 g/dL Hematocrit 36.2 % Mean Corpuscular Volume 92.8 fL Mean Corpuscular Hemoglobin 29.0 pg Mean Corpuscular Hemoglobin Concent 31.2 g/dl RDW Standard Deviation 53.5 fL RDW Coefficient of Variation 16.0 % Platelet Count 226 K/uL Mean Platelet Volume 10.5 fL Sodium Level 135 mmol/L Potassium Level 4.5 mmol/L Chloride Level 97 mmol/L Carbon Dioxide Level 27 mmol/L Anion Gap 11.0 mmol/L Blood Urea Nitrogen 29 mg/dl Creatinine 4.80 mg/dl Est Creatinine Clear Calc Drug Dose 12.8 ml/min Estimated GFR () 14.4 Estimated GFR (Non- 12.4 BUN/Creatinine Ratio 6.0 Random Glucose 160 mg/dl Calcium Level 8.8 mg/dl Bedside Glucose 111 mg/dl Assessment and Plan 60-year-old male, In the hospital on 08/17/2016 because of increasingly inappropriate behavior and and no caregiver at home Inappropriate behavior, possible from stress of knife and medical conditions Resolved End-stage renal disease. Stable , We will contact the patient's manager animal for dialysis while he is in the hospital. History of deep venous thrombosis, stable , The patient will remain on apixaban. Diabetes stable he will be placed on a sliding scale in the hospital. Anemia stable, Hemoglobin is currently at baseline. Diastolic chronic heart failure. Stable The patient is euvolemic at present, does not complain of shortness of breath and will be scheduled for dialysis, regardless, to avoid volume overload. History of coronary artery disease. Stable The patient is not currently on related medications. This is a possibility addressed with his physician prior to discharge, no evidence of acute coronary syndrome at present. Hypothyroidism. Continue, Synthroid. Hypotension - is intermittent in this pt - normally asymptomatic and related to dialysis status - cont Midodrine, Florinef Left elbow pain with history of left elbow fracture, not a surgical candidate, he was seen by orthopedic surgeon, just watching no any further input needed I know patient from [facility], and from his several previous admission, he was discharged from [facility] and then the if along at home, with caregiver coming every day, His general condition is stable for now, major since is placement, he need to caregiver at home, however he has no caregiver for now, discussed with options of discharge plan included home with caregiver, or senior care, has ordered PT OT, and request director social consult. Confirm patient of code status, it is do not resuscitation Continued [facility] stay due to: home environment unsafe for pt Discharge planning: uncertain
--- NOTE | 2016-08-18 17:29 | Nephrology Consultation ---
Nephrology Consultation Date of Consultation: Aug 18, 2016. Attending Physician: Dr Escobar Requesting Physician: Dr Wilkins Reason for Consultation: ESRD History of Present Illness 60 year old male w/ ESRD on MWF and multiple other medical issues sent to ED for mgt after his round the clock home care staff and family declined to continue caring for him d/t pt's abusive behavior versus other reasons such as simply not having caregiver currently in home after recent NH discharge. He dialyzes at [facility] and had a full and uneventful tx yesterday under the care of my partner Dr Buchanan via [facility]. Other PMH includes DM, CAD, hypothyroid, a fib, stroke, depression, past C diff, chronic hypotension on midodrine + florinef w/ HD, DVT. He has no complaints at this time and is getting ready to eat supper. No overt behavioral issues at this time. He has L elbow pain at times and states does PT to help for this when not in hospital. Past Medical/Surgical History Medical Problems: (1) Abdominal pain Status: Acute (2) C. difficile colitis Status: Acute (3) Caregiver has difficulty performing caretaking Status: Acute (4) Colitis Status: Acute (5) Dehydration Status: Acute (6) Failure to thrive Status: Acute (7) Fever Status: Acute (8) Infection associated with peritoneal dialysis catheter Status: Acute (9) Lactic acidosis Status: Acute (10) Periumbilical abdominal pain Status: Acute (11) Pneumonia involving right lung Status: Acute (12) Sepsis Status: Acute (13) Septic shock Status: Acute (14) Vomiting Status: Acute (15) Weakness Status: Acute -s/p gastric bypass -CAD w/ h/o HF, last OK 2009 -speech problems after stroke -DM c/b retinopathy -GI bleed -s/p cholecystectomy and hip replacement -HL Family History FH: heart disease FATHER FHx: cancer FATHER Hypertension Social History Smoking Status: Never Smoker Alcohol Use: occasionally Drug Use: none Marital Status: single Housing Status: lives alone Occupation Status: disabled Allergies Coded Allergies: No Known Allergies (Verified , `, 05/01/16) Medications Current Inpatient Medications Medications (Trade) Dose Ordered Sig/Rigoberto Route Start Time Stop Time Status Last Admin Dose Admin Bisacodyl (Dulcolax Supp) 10 mg DAILY PRN NV 08/17/16 21:00 09/16/16 20:59 Calcium Acetate (Phoslo Cap) 2,001 mg TIDM PO 08/18/16 08:00 09/17/16 07:59 08/18/16 12:17 2,001 MG Escitalopram Oxalate (Lexapro Tab) 10 mg DAILY PO 08/18/16 09:00 09/17/16 08:59 08/18/16 08:55 10 MG Finasteride (Proscar Tab) 5 mg DAILY PO 08/18/16 09:00 09/17/16 08:59 08/18/16 08:55 5 MG Fludrocortisone Acetate (Florinef Tab) 0.1 mg DAILY PO 08/18/16 09:00 09/17/16 08:59 08/18/16 08:57 0.1 MG Gabapentin (Neurontin Cap) 400 mg MoWeFr@2100 PO 08/17/16 21:00 09/16/16 20:59 08/18/16 01:24 400 MG Gabapentin (Neurontin Cap) 400 mg SuTuThSa@0900,1400,2100 PO 08/18/16 09:00 09/17/16 08:59 08/18/16 13:58 400 MG Lactobacillus Acidophilus (Floranex Tab) 4 tab BID PO 08/17/16 21:00 09/16/16 20:59 08/18/16 08:54 4 TAB Latanoprost (Xalatan Oph Soln) 1 drops HS OPL 08/17/16 21:00 09/16/16 20:59 08/18/16 01:18 1 DROPS Levothyroxine Sodium (Synthroid Tab) 100 mcg DAILYBB PO 08/18/16 06:30 09/17/16 08:59 08/18/16 06:08 100 MCG Midodrine (Proamatine Tab) 2.5 mg BID17 PO 08/17/16 21:00 09/16/16 20:59 08/18/16 08:55 2.5 MG Oxycodone/ Acetaminophen (Percocet 5-325mg Tab) 1 tab Q4H PRN PO 08/17/16 21:00 08/31/16 20:59 Sucralfate (Carafate Susp) 1 gm QID PO 08/17/16 21:00 09/16/16 20:59 08/18/16 12:17 1 GM Apixaban (Eliquis Tab) 5 mg Q12 PO 08/17/16 21:00 09/16/16 20:59 08/18/16 08:56 5 MG Vitamin B Complex/ Vit C/Folic Acid (Nephrocaps) 1 cap BID PO 08/17/16 21:00 09/16/16 20:59 08/18/16 09:00 1 CAP Metronidazole HCl (Metrogel Topical Gel) 1 appln DAILY TOP 08/18/16 09:00 09/17/16 08:59 08/18/16 09:06 1 APPLN Pantoprazole Sodium (Protonix Tab) 40 mg DAILY PO 08/18/16 09:00 09/17/16 08:59 08/18/16 08:53 40 MG Acetaminophen (Tylenol Tab) 650 mg Q4H PRN PO 08/17/16 21:15 09/16/16 21:14 Al Hydrox/Mg Hydrox/Simethicone (Maalox Max Susp) 15 ml Q4H PRN PO 08/17/16 21:15 09/16/16 21:14 Magnesium Hydroxide (Milk Of Magnesia Susp) 30 ml Q6H PRN PO 08/17/16 21:15 09/16/16 21:14 Polyethylene (Miralax Powder Packet) 17 gm DAILY PRN PO 08/17/16 21:15 09/16/16 21:14 Ondansetron HCl (Zofran Inj) 4 mg Q6H PRN IV 08/17/16 21:15 09/16/16 21:14 Home Meds and Scripts Medications Dose Route/Sig Max Daily Dose Days Date Category Dose Instructions Vancomycin HCl 1,000 Mg/1000 Ml Soln 1,000 Mg IV UD PRN 08/14/16 Reported TO BE GIVEN WITH DIALYSIS IF RANDOM LEVEL IS LESS THAN 17 Polyethylene Glycol 3350 (Polyethylene Glycol 3350 (Bulk) 1 Pow Pow 17 Gm PO DAILY PRN 08/14/16 Reported Midodrine Hcl 2.5 Mg Tab 2.5 Mg PO BID 08/14/16 Reported Florinef (Fludrocortisone Acetate) 0.1 Mg Tab 0.1 Mg PO DAILY 08/14/16 Reported Fleet Enema (Sodium Phosphate/Biphosphate) Yulisa 1 Ea NV UD PRN 08/14/16 Reported Proscar (Finasteride) 5 Mg Tab 5 Mg PO DAILY 08/14/16 Reported Dulcolax (Bisacodyl) 10 Mg Sup 1 Supp NV DAILY PRN 08/14/16 Reported Xalatan 0.005% Oph Katya (Latanoprost) 0.005 % Katya 1 Drop OPL HS 08/14/16 Reported Metronidazole (Metronidazole Hcl) 135 Appln/45 Gm Cr 1 Appln TOP DAILY 30 07/24/16 Rx Sucralfate 1 Gm/10 Ml Arianna 1 Gm PO QID 07/20/16 Reported Gabapentin 400 Mg Cap 400 Mg PO UD 07/20/16 Reported TAKE 400 MG AT BEDTIME ONLY ON SATURDAY,SATURDAY AND SATURDAY Percocet 5MG/325MG (Oxycodone/Acetaminophen) Tab 1 Tablet PO Q4H PRN 06/18/16 Reported Nephronex (B-Complex W/ C & Folic Acid) 1 Liq Liq 5 Ml PO BID 03/06/16 Reported Lexapro (Escitalopram Oxalate) 10 Mg Tab 10 Mg PO DAILY 03/06/16 Reported Eliquis (Apixaban) 5 Mg Tab 5 Mg PO Q12 03/06/16 Reported Tylenol (Acetaminophen) 325 Mg Tab 325-650 Mg PO Q6H PRN 11/14/15 Reported Phoslo 667 Mg (Calcium Acetate) 667 Mg Cap 2,001 Mg PO TIDM 11/14/15 Reported TAKE 3 CAPSULES THREE TIMES ZAYAS WITH MEALS Neurontin (Gabapentin) 400 Mg Cap 400 Mg PO UD 07/12/15 Reported TAKE THIS MEDICATION THREE TIMES A DAY EVERY SATURDAY,SATURDAY ,SATURDAY AND SATURDAY Lactinex (Lactobacillus Acidophilus) Tab 1 Tab PO BID 07/12/15 Reported Synthroid (Levothyroxine Sodium) 100 Mcg Tab 100 Mcg PO DAILY 07/12/15 Reported TAKE THIS MEDICATION ON AN EMPTY STOMACH AND 30 MINUTES BEFORE BREAKFAST OR ANY OTHER MEDICATIONS Prilosec (Omeprazole) 20 Mg Capcr 20 Mg PO DAILY 07/12/15 Reported Review of Systems Constitutional: No fatigue, No fever, No weakness Eyes: No worsening of vision ENT: No hearing loss Respiratory: No cough, No shortness of breath Cardiac: No chest pain, No edema, No palpitations Abdomen: No diarrhea, No nausea, No pain, No vomiting Musculoskeletal: + joint pain (occasional L elbow pain) Male : + problem reported (anuric) Neuro: No balance problems, No memory loss, No weakness Psych: No anxiety, No depression symptoms Heme: No abnormal bleeding/bruising Endo: No fatigue Skin: No itch, No rash Physical Exam Date Time Temp Pulse Resp B/P Pulse Ox O2 Delivery O2 Flow Rate FiO2 08/18/16 15:58 36.8 60 18 95/62 92 Room Air 08/18/16 09:14 92 Room Air 08/18/16 07:23 36.6 64 20 72/44 92 08/18/16 02:00 36.7 66 16 120/79 92 Room Air 08/18/16 01:00 92 Room Air 08/18/16 00:38 36.7 66 16 120/79 92 Room Air 08/17/16 21:36 69 81/51 93 Room Air 08/17/16 19:20 73 20 94/50 93 General Appearance: WD/WN, no apparent distress (on RA) Eyes: EOMI ENT: hearing grossly normal Neck: supple Respiratory/Chest: lungs clear, no respiratory distress, + decreased breath sounds Cardiovascular: regular rate, rhythm, no edema Abdomen: normal bowel sounds, non tender, soft Extremities: + pertinent finding (L BKA; visibly weaker L side; L elbow a bit red but not infected looking/ no open skin) Neurologic/Psych: alert, normal mood/affect, oriented x 3, + motor weakness (L side) Skin: no jaundice, warm/dry, no rash Diagnostics Last 24 Hours Test 08/17/16 19:03 08/17/16 23:30 08/18/16 16:29 White Blood Count 4.03 K/uL Red Blood Count 3.90 M/uL Hemoglobin 11.3 g/dL Hematocrit 36.2 % Mean Corpuscular Volume 92.8 fL Mean Corpuscular Hemoglobin 29.0 pg Mean Corpuscular Hemoglobin Concent 31.2 g/dl RDW Standard Deviation 53.5 fL RDW Coefficient of Variation 16.0 % Platelet Count 226 K/uL Mean Platelet Volume 10.5 fL Sodium Level 135 mmol/L Potassium Level 4.5 mmol/L Chloride Level 97 mmol/L Carbon Dioxide Level 27 mmol/L Anion Gap 11.0 mmol/L Blood Urea Nitrogen 29 mg/dl Creatinine 4.80 mg/dl Est Creatinine Clear Calc Drug Dose 12.8 ml/min Estimated GFR () 14.4 Estimated GFR (Non- 12.4 BUN/Creatinine Ratio 6.0 Random Glucose 160 mg/dl Calcium Level 8.8 mg/dl Bedside Glucose 111 mg/dl 145 mg/dl Diagnostic Radiology: none Assessment & Plan 60 y/o M w/ ESRD on MWF HD via [facility], CAD, DM, s/p gastric bypass, hypothyroid, stroke, chronic hypotension w/ HD admitted 08/17 for further mgt after pt family and in home caregivers refused/unavailable to continue his care. ESRD -uneventful on 08/17; his chemistries and volume status are acceptable -next HD for 08/20 per routine; measures to combat hypotension on HD noted anemia of chronic disease -procrit as indicated w/ HD behavior issues -defer to primary service to evaluate for ?recurrent stroke or occult infection if indicated, though no particular evidence of either at this time past C diff -on po vanco; no diarrhea this admission appreciate consultation; will follow with you
[2016-08-19] MEDS: LEVOTHYROXINE 100 MCG TAB PO SCH (06:22)
[2016-08-19 08:17] VITALS: BP 81/51; PULSE 59; TEMP 36.4; O2SAT 90
[2016-08-19] MEDS: SUCRALFATE 1 GM/10 ML UDC PO SCH ×4 (09:37→20:55)
[2016-08-19] MEDS: CALCIUM ACETATE 667MG GELCAP PO SCH ×3 (09:37→17:02)
[2016-08-19] MEDS: APIXABAN 2.5 MG TAB PO SCH ×2 (09:38→20:56)
[2016-08-19] MEDS: NEPHROCAPS PO SCH ×2 (09:39→20:57)
[2016-08-19] MEDS: ESCITALOPRAM OXALATE 10 MG TAB PO SCH (09:39)
[2016-08-19] MEDS: LACTOBACILLUS ACIDOPHILUS (FLORANEX) TAB PO SCH ×2 (09:39→20:57)
[2016-08-19] MEDS: PANTOprazole SOD 40 MG TAB PO SCH (09:40)
[2016-08-19] MEDS: FINASTERIDE 5 MG TAB PO SCH (09:40)
[2016-08-19] MEDS: GABAPENTIN 400 MG CAP PO SCH ×3 (09:41→20:56)
[2016-08-19] MEDS: MIDODRINE 2.5 MG TAB PO SCH ×2 (09:41→17:02)
[2016-08-19] MEDS: METRONIDAZOLE 0.75% TOPICAL GEL 45 GM TUBE TOP SCH (09:43)
[2016-08-19] MEDS: FLUDROCORTISONE ACETATE 0.1 MG TAB PO SCH (09:43)
--- NOTE | 2016-08-19 10:53 | Progress Note ---
Subjective Date of Service: Aug 19, 2016. Subjective Pt evaluation today including: conversation w/ patient, physical exam, chart review, lab review, review of studies, conversation w/ child development consultant, review of inpatient medication list Doing the same as yesterday, feeding himself, no nausea vomiting, no any new behavioral problem, no mental status changes Problem List Medical Problems: (1) Abdominal pain Status: Acute (2) C. difficile colitis Status: Acute (3) Caregiver has difficulty performing caretaking Status: Acute (4) Colitis Status: Acute (5) Dehydration Status: Acute (6) Failure to thrive Status: Acute (7) Fever Status: Acute (8) Infection associated with peritoneal dialysis catheter Status: Acute (9) Lactic acidosis Status: Acute (10) Periumbilical abdominal pain Status: Acute (11) Pneumonia involving right lung Status: Acute (12) Sepsis Status: Acute (13) Septic shock Status: Acute (14) Vomiting Status: Acute (15) Weakness Status: Acute Review of Systems Constitutional: + fatigue, No chills, No fever, No problem reported, No sweats , No weakness, No weight loss Eyes: No diplopia, No discharge, No eye pain, No redness, No worsening of vision ENT: No dental problems, No hearing loss, No nasal symptoms, No sore throat, No tinnitus, No trouble swallowing, No unusual epistaxis Respiratory: No cough, No dyspnea at rest, No dyspnea on exertion, No hemoptysis, No shortness of breath, No sputum, No wheezing Cardiac: No PND, No chest pain, No claudication, No edema, No orthopnea, No palpitations Abdomen: No constipation, No diarrhea, No nausea, No pain, No vomiting Musculoskeletal: + joint pain (left elbow pain and swelling is not new), No calf pain, No muscle pain, No swelling Male : No dysuria, No hematuria, No incontinence, No nocturia more than once/ night, No slowing stream, No urinary frequency Neurologic: No balance problems, No memory loss, No numbness/tingling, No paralysis, No vertigo, No weakness Psychiatric: No anhedonism, No anxiety, No depression symptoms, No insomnia, No substance abuse Heme: No abnormal bleeding/bruising, No clotting problems, No night sweats, No swollen lymph nodes Endo: No excessive thirst, No excessive urination, No fatigue Skin: No bleeding, No color change, No itch, No new/changing skin lesions, No rash Objective Vital Signs Date Time Temp Pulse Resp B/P Pulse Ox O2 Delivery O2 Flow Rate FiO2 08/19/16 08:17 36.4 59 20 81/51 90 08/19/16 00:00 Room Air 08/18/16 23:11 36.8 65 18 96/64 91 Room Air 08/18/16 16:00 Room Air 08/18/16 15:58 36.8 60 18 95/62 92 Room Air Physical Exam General Appearance: WD/WN, no apparent distress, + pertinent finding (chronic ill looking) Eyes: normal inspection, PERRL, EOMI, sclerae normal ENT: normal ENT inspection, hearing grossly normal, pharynx normal Neck: supple, no adenopathy, thyroid normal, no JVD, no carotid bruits, trachea midline Respiratory/Chest: chest non-tender, normal breath sounds, no respiratory distress, no accessory muscle use, + decreased breath sounds Cardiovascular: regular rate, rhythm, no edema, no gallop, no JVD, no murmur Abdomen: normal bowel sounds, non tender, soft, no organomegaly, no pulsatile mass Extremities: normal range of motion, non-tender, normal inspection, no pedal edema, no calf tenderness, normal capillary refill, pelvis stable, + pertinent finding (left lower extremity S/P amputation) Neurologic/Psychiatric: rehabilitation worker II-XII nml as tested, no motor/sensory deficits, alert, normal mood/affect, oriented x 3 Skin: normal color, warm/dry, no rash Lymphatic: no adenopathy Laboratory Results Last 24 Hours Test 08/18/16 16:29 08/18/16 19:53 08/19/16 07:10 Bedside Glucose 145 mg/dl 86 mg/dl Magnesium Level 2.6 mg/dl Assessment and Plan 60-year-old male, In the hospital on 08/17/2016 because of increasingly inappropriate behavior and and no caregiver at home Inappropriate behavior, possible from stress of life and medical conditions: Resolved End-stage renal disease. Stable , patient's cut off sawyer continue follow-up History of deep venous thrombosis, stable , continue on apixaban. Diabetes stable, cont on a sliding scale Anemia stable, Hemoglobin is currently at baseline. Diastolic chronic heart failure. Stable, History of coronary artery disease. Stable Hypothyroidism. Continue, Synthroid. Hypotension - is intermittent, is not new , cont Midodrine, Florinef Left elbow pain with history of left elbow fracture, not a surgical candidate, he was seen by orthopedic surgeon, just watching no any further input needed I know patient from [facility], and from his several previous admission, he was discharged from [facility] and then [facility] along at home, with caregiver coming every day, His general condition is stable for now, major since is placement, he need to caregiver at home, however he has no caregiver for now, there maybe have some issues with caregiver, discussed with options of discharge plan included home with caregiver, or [facility], has ordered PT OT, and request social media job titles consult. do not resuscitation Continued [facility] stay due to: home environment unsafe for pt Discharge planning: uncertain
[2016-08-19 16:02] VITALS: BP 103/70; PULSE 71; TEMP 36.5; O2SAT 92
[2016-08-19] MEDS: LATANOPROST 0.005% OP SOLN 2.5 ML BTL OPL SCH (20:55)
[2016-08-20] VITALS (18 sets, daily range): BP systolic 70–108; BP diastolic 44–72; PULSE 54–79; TEMP 36.4–37; O2SAT 90–91
[2016-08-20] MEDS: LEVOTHYROXINE 100 MCG TAB PO SCH (05:45)
[2016-08-20 06:02] LABS: BASO % 0.5 %; BASO ABS # 0.02 K/uL (0-0.2); COMPLETE YES; EOS % 3.7 %; HEMATOCRIT 32.6 % (42-52); IG% 0.2 %; LYMPH % 29.7 %; MEAN CELL VOLUME 91.6 fL (80-100); MEAN CORPUSCULAR HEMOGLOBIN 28.9 pg (25-34); MEAN CORPUSCULAR HGB CONC 31.6 g/dl (32-36); MEAN PLATELET VOLUME 10.4 fL (7.4-10.4); MONO % 15.3 %; NEUT % 50.6 %; PLATELET COUNT 241 K/uL (130-400); RED BLOOD COUNT 3.56 M/uL (4.7-6.1); WHITE BLOOD COUNT 4.37 K/uL (4.8-10.8)
[2016-08-20 06:41] LABS: BUN/CREATININE RATIO 11.1 (10-20); CALCIUM 8.4 mg/dl (8.5-10.1)
[2016-08-20 06:42] LABS: CREATININE 9.2 mg/dl (0.60-1.40)
--- NOTE | 2016-08-20 07:40 | Nephrology Progress Note ---
Nephrology Progress Note Date of Service: Aug 20, 2016. Subjective 60 yo male with placement issues. no longer with home nursing secondary to behavioural issues with the patient and the staff. pt is comfortable. eating well. no complaints. Objective Date Time Temp Pulse Resp B/P Pulse Ox O2 Delivery O2 Flow Rate FiO2 08/20/16 00:36 36.6 65 18 108/72 91 08/20/16 00:00 Room Air 08/19/16 16:02 36.5 71 18 103/70 92 Room Air 08/19/16 16:00 Room Air 08/19/16 10:52 Room Air 08/19/16 08:17 36.4 59 20 81/51 90 Physical Exam: General-aaox3 Eyes-no scleral icterus ENT-mmm Neck-supple Lungs-basilar rales Heart-rrr Abdomen-bs+ s/nt/nd Extremities-left aka Neuro-nonfocal Current Inpatient Medications Medications (Trade) Dose Ordered Sig/Rigoberto Route Start Time Stop Time Status Last Admin Dose Admin Bisacodyl (Dulcolax Supp) 10 mg DAILY PRN IL 08/17/16 21:00 09/16/16 20:59 Calcium Acetate (Phoslo Cap) 2,001 mg TIDM PO 08/18/16 08:00 09/17/16 07:59 08/19/16 17:02 2,001 MG Escitalopram Oxalate (Lexapro Tab) 10 mg DAILY PO 08/18/16 09:00 09/17/16 08:59 08/19/16 09:39 10 MG Finasteride (Proscar Tab) 5 mg DAILY PO 08/18/16 09:00 09/17/16 08:59 08/19/16 09:40 5 MG Fludrocortisone Acetate (Florinef Tab) 0.1 mg DAILY PO 08/18/16 09:00 09/17/16 08:59 08/19/16 09:43 0.1 MG Gabapentin (Neurontin Cap) 400 mg MoWeFr@2100 PO 08/17/16 21:00 09/16/16 20:59 08/18/16 01:24 400 MG Gabapentin (Neurontin Cap) 400 mg SuTuThSa@0900,1400,2100 PO 08/18/16 09:00 09/17/16 08:59 08/19/16 20:56 400 MG Lactobacillus Acidophilus (Floranex Tab) 4 tab BID PO 08/17/16 21:00 09/16/16 20:59 08/19/16 20:57 4 TAB Latanoprost (Xalatan Oph Soln) 1 drops HS OPL 08/17/16 21:00 09/16/16 20:59 08/19/16 20:55 1 DROPS Levothyroxine Sodium (Synthroid Tab) 100 mcg DAILYBB PO 08/18/16 06:30 09/17/16 08:59 08/20/16 05:45 100 MCG Midodrine (Proamatine Tab) 2.5 mg BID17 PO 08/17/16 21:00 09/16/16 20:59 08/19/16 17:02 2.5 MG Oxycodone/ Acetaminophen (Percocet 5-325mg Tab) 1 tab Q4H PRN PO 08/17/16 21:00 08/31/16 20:59 Sucralfate (Carafate Susp) 1 gm QID PO 08/17/16 21:00 09/16/16 20:59 08/19/16 20:55 1 GM Apixaban (Eliquis Tab) 5 mg Q12 PO 08/17/16 21:00 09/16/16 20:59 08/19/16 20:56 5 MG Vitamin B Complex/ Vit C/Folic Acid (Nephrocaps) 1 cap BID PO 08/17/16 21:00 09/16/16 20:59 08/19/16 20:57 1 CAP Metronidazole HCl (Metrogel Topical Gel) 1 appln DAILY TOP 08/18/16 09:00 09/17/16 08:59 08/19/16 09:43 1 APPLN Pantoprazole Sodium (Protonix Tab) 40 mg DAILY PO 08/18/16 09:00 09/17/16 08:59 08/19/16 09:40 40 MG Acetaminophen (Tylenol Tab) 650 mg Q4H PRN PO 08/17/16 21:15 09/16/16 21:14 Al Hydrox/Mg Hydrox/Simethicone (Maalox Max Susp) 15 ml Q4H PRN PO 08/17/16 21:15 09/16/16 21:14 Magnesium Hydroxide (Milk Of Magnesia Susp) 30 ml Q6H PRN PO 08/17/16 21:15 09/16/16 21:14 Polyethylene (Miralax Powder Packet) 17 gm DAILY PRN PO 08/17/16 21:15 09/16/16 21:14 Ondansetron HCl (Zofran Inj) 4 mg Q6H PRN IV 08/17/16 21:15 09/16/16 21:14 Heparin Sodium (Porcine) (Heparin Iv Bolus) 1,000 unit ONE IV 08/20/16 08:00 08/20/16 08:01 Heparin Sodium (Porcine) (Heparin Iv Bolus) 400 unit Q1H IV 08/20/16 08:00 08/20/16 10:01 Albumin Human (Albumin 25%) 25 gm ONE ONCE IV 08/20/16 08:00 08/20/16 08:01 Last 24 Hours Test 08/19/16 16:24 08/19/16 20:36 08/20/16 05:44 Bedside Glucose 111 mg/dl 107 mg/dl White Blood Count 4.37 K/uL Red Blood Count 3.56 M/uL Hemoglobin 10.3 g/dL Hematocrit 32.6 % Mean Corpuscular Volume 91.6 fL Mean Corpuscular Hemoglobin 28.9 pg Mean Corpuscular Hemoglobin Concent 31.6 g/dl Platelet Count 241 K/uL Mean Platelet Volume 10.4 fL Neutrophils (%) (Auto) 50.6 % Lymphocytes (%) (Auto) 29.7 % Monocytes (%) (Auto) 15.3 % Eosinophils (%) (Auto) 3.7 % Basophils (%) (Auto) 0.5 % Neutrophils # (Auto) 2.21 K/uL Lymphocytes # (Auto) 1.30 K/uL Monocytes # (Auto) 0.67 K/uL Eosinophils # (Auto) 0.16 K/uL Basophils # (Auto) 0.02 K/uL RDW Standard Deviation 52.0 fL RDW Coefficient of Variation 15.6 % Immature Granulocyte % (Auto) 0.2 % Immature Granulocyte # (Auto) 0.01 K/uL Sodium Level 132 mmol/L Potassium Level 5.0 mmol/L Chloride Level 95 mmol/L Carbon Dioxide Level 23 mmol/L Anion Gap 14.0 mmol/L Blood Urea Nitrogen 103 mg/dl Creatinine 9.20 mg/dl Est Creatinine Clear Calc Drug Dose 8.9 ml/min Estimated GFR () 6.5 Estimated GFR (Non- 5.6 BUN/Creatinine Ratio 11.1 Random Glucose 77 mg/dl Calcium Level 8.4 mg/dl Assessment & Plan ESRD-for dialysis today. has some basilar rales but overall looks good. on albumin and midodrine to help maximize fluid removal. Anemia of renal failure-hg levels are trending down. still above 10. to redose procrit today. placement-pt well known to [facility] unit. has complex history and would be best served to stay in current unit if possible. [facility]. may need to switch units if goes there. my partner goes to the [place] unit on t/h/s shift-Dr. Moore. for continuity of care, may be better served to go to that shift if we need to switch units.
[2016-08-20] MEDS ORDERED: EPOETIN ALFA 10,000 UNITS/ML VIAL IV SCH (07:45)
[2016-08-20] MEDS ORDERED: ALBUMIN HUMAN 25% 12.5 GM/50 ML VIAL IV ONE (08:00)
[2016-08-20] MEDS ORDERED: HEPARIN SOD (PORCINE) 1000 UNIT/ML 10 ML VIAL IV SCH (08:00)
[2016-08-20] MEDS: CALCIUM ACETATE 667MG GELCAP PO SCH ×3 (08:29→17:16)
[2016-08-20] MEDS: SUCRALFATE 1 GM/10 ML UDC PO SCH ×4 (08:29→20:50)
[2016-08-20] MEDS: APIXABAN 2.5 MG TAB PO SCH ×2 (08:30→20:51)
[2016-08-20] MEDS: FLUDROCORTISONE ACETATE 0.1 MG TAB PO SCH (08:30)
[2016-08-20] MEDS: LACTOBACILLUS ACIDOPHILUS (FLORANEX) TAB PO SCH ×2 (08:30→20:50)
[2016-08-20] MEDS: ESCITALOPRAM OXALATE 10 MG TAB PO SCH (08:31)
[2016-08-20] MEDS: MIDODRINE 2.5 MG TAB PO SCH ×2 (08:32→17:16)
[2016-08-20] MEDS: PANTOprazole SOD 40 MG TAB PO SCH (08:32)
[2016-08-20] MEDS: NEPHROCAPS PO SCH ×2 (08:32→20:52)
[2016-08-20] MEDS: FINASTERIDE 5 MG TAB PO SCH (08:32)
[2016-08-20] MEDS: METRONIDAZOLE 0.75% TOPICAL GEL 45 GM TUBE TOP SCH (08:33)
[2016-08-20 09:10] LABS: HEPATITIS B AB POS
--- NOTE | 2016-08-20 12:41 | Hospitalist Progress Note ---
Hospitalist Progress Note Date of Service Aug 20, 2016. (Lyn Stubbs PA-C) Subjective Pt evaluation today including: conversation w/ patient, physical exam, chart review, lab review, review of studies, review of inpatient medication list Pain: none PO Intake: good The patient was seen and examined this morning. Patient reports feeling well, currently undergoing hemodialysis in his room as he is on contact precautions. The patient has no focal complaints. He denies any chest pain, shortness of breath, abdominal pain, nausea, vomiting, trouble with bowels. Patient is complaining of phantom pain in the left limb suspect some Tylenol this morning. Additional Comments: ROS: Constitutional: No fever, chills, sweats, fatigue or weakness Eyes: No diplopia, no changes in vision ENT: No sore throat, tinnitus, or trouble swallowing Respiratory: No shortness of breath, No dyspnea at rest or on exertion, no cough or sputum Cardiovascular: No chest pain, palpitations, or flutter Abdomen: No pain, No constipation, No diarrhea, No nausea, No vomiting Musculoskeletal: No calf pain, No joint pain, No swelling Genitourinary : No dysuria or urinary frequency, No hematuria Neurologic: No numbness/tingling, no difficulty with ambulation, no sensory or motor deficits Psychiatric: No depression or anxiety symptoms Endocrine: No fatigue, No weight changes Integumentary: No itch, No rash (Lyn Stubbs PA-C) Objective Vital Signs Date Time Temp Pulse Resp B/P Pulse Ox O2 Delivery O2 Flow Rate FiO2 08/20/16 11:54 68 83/51 08/20/16 11:47 70 93/57 08/20/16 11:30 70 18 103/51 08/20/16 11:08 76 18 70/49 Room Air 08/20/16 10:30 76 72/50 08/20/16 10:15 72 93/57 08/20/16 10:04 73 81/50 08/20/16 10:00 75 77/48 08/20/16 09:45 71 86/65 08/20/16 09:32 70 104/62 08/20/16 08:15 Room Air 08/20/16 07:48 36.7 79 18 89/49 90 Room Air 08/20/16 00:36 36.6 65 18 108/72 91 08/20/16 00:00 Room Air 08/19/16 16:02 36.5 71 18 103/70 92 Room Air 08/19/16 16:00 Room Air (Lyn Stubbs PA-C) Physical Exam Notes: General: awake, alert, no apparent distress, actively undergoing hemodialysis, appears much older than stated age Head: Normocephalic, atraumatic ENT: EOMI, + left eye remains closed during interview, no pharyngeal exudate, mucous membranes dry, Chest: + Chest port, Clear to auscultation, on room air, no adventitious breath sounds Cardiac: + Bradycardic, Regular rhythm, no murmur, no JVD, normal peripheral pulses, good capillary refill Abdominal: Normoactive bowel sounds 4, soft, nontender, no rebound, tenderness or guarding Extremities: +Left BKA, stump intact. Normal inspection, no peripheral edema or erythema, calfs nontender to palpation Psych: Normal mood and affect Neuro: AAO x 3, normal mood and affect., + mild expressive deficits in face (Lyn Stubbs, NOE-C) Laboratory Results Last 24 Hours Test 08/19/16 16:24 08/19/16 20:36 08/20/16 05:44 Bedside Glucose 111 mg/dl 107 mg/dl White Blood Count 4.37 K/uL Red Blood Count 3.56 M/uL Hemoglobin 10.3 g/dL Hematocrit 32.6 % Mean Corpuscular Volume 91.6 fL Mean Corpuscular Hemoglobin 28.9 pg Mean Corpuscular Hemoglobin Concent 31.6 g/dl Platelet Count 241 K/uL Mean Platelet Volume 10.4 fL Neutrophils (%) (Auto) 50.6 % Lymphocytes (%) (Auto) 29.7 % Monocytes (%) (Auto) 15.3 % Eosinophils (%) (Auto) 3.7 % Basophils (%) (Auto) 0.5 % Neutrophils # (Auto) 2.21 K/uL Lymphocytes # (Auto) 1.30 K/uL Monocytes # (Auto) 0.67 K/uL Eosinophils # (Auto) 0.16 K/uL Basophils # (Auto) 0.02 K/uL RDW Standard Deviation 52.0 fL RDW Coefficient of Variation 15.6 % Immature Granulocyte % (Auto) 0.2 % Immature Granulocyte # (Auto) 0.01 K/uL Sodium Level 132 mmol/L Potassium Level 5.0 mmol/L Chloride Level 95 mmol/L Carbon Dioxide Level 23 mmol/L Anion Gap 14.0 mmol/L Blood Urea Nitrogen 103 mg/dl Creatinine 9.20 mg/dl Est Creatinine Clear Calc Drug Dose 8.9 ml/min Estimated GFR () 6.5 Estimated GFR (Non- 5.6 BUN/Creatinine Ratio 11.1 Random Glucose 77 mg/dl Calcium Level 8.4 mg/dl Hepatitis B Surface Antigen NEG Hepatitis B Surface Antibody POS (Lyn Stubbs PA-C) Assessment and Plan This is a 60-year-old male admitted for behavioral issues, with past medical history of end-stage renal disease on hemodialysis, Anemia of chronic disease with baseline hemoglobin 8.5 to 9, diastolic CH, diabetes type 2, hypertension, CAD with history of NSTEMI, hyperlipidemia, hypothyroidism, migraine headache, hx CVA with mild expressive deficits, neuropathy,hx DVT, glaucoma, dialysis- related hypotension, possible history of ventricular arrhythmia. Inappropriate behavior - Psych consulted -history of inappropriate behavior with female staff- if available continue male nursing and that female staff be chaperoned when treating pt. We will need to eventaully find the pt placement - ER was unable to successfully place patient in the facility, CM to assist with discharge planning, family members are currently not willing to take the patient into their home to care for him, patient is from home and needs 24-hour care - Office of aging to may need to be contacted if has not already been done - Behavior is geared towards women. Caution for manipulative behavior ESRD on HD - Nephrology on board, most recent HD treatment is today, normal regimen is MWF - Patient has history of dialysis-related hypertension, will continue Minitran and Florinef History of DVT -Continue apixaban Diabetes II - Diabetic diet, ISS with Accu-Cheks before meals at bedtime Anemia of chronic disease - Hemoglobin is currently at baseline. Diastolic chronic heart failure. - The patient is euvolemic at present, does not complain of shortness of breath and will be scheduled for dialysis, regardless, to avoid volume overload. CAD - The patient is not currently on related medications. This is a possibility addressed with his physician prior to discharge, no evidence of acute coronary syndrome at present. Hypothyroidism - Continue Synthroid. Hx C. difficile - Patient was recently treated with course of vancomycin, he denies currently having any symptomatic diarrhea - Continue contact precautions DVT prophylaxis: Continue apixiban, Teds, SCDs CODE STATUS: DNR Disposition: Await placement options, care management assisting with discharge planning (Lyn Stubbs, RAMBO) Resident Physician Supervision Note: I interviewed and examined the patient. Discussed with Lyn Stubbs PAC and agree with findings and plan as documented in the note. Any exceptions or clarifications are listed here: None this pt was having care issues at home, is disabled and on chronic HD for ESRD. Was discharged from [facility] to home has not had success in this transition vitals are stable dialysis m-w-f continue support for esrd, have case management help with disposition Documented By: Rubio Henry (Rubio Henry M.D.)
[2016-08-20] MEDS: GABAPENTIN 400 MG CAP PO SCH (20:51)
[2016-08-20] MEDS: LATANOPROST 0.005% OP SOLN 2.5 ML BTL OPL SCH (20:52)
[2016-08-21 00:07] VITALS: BP 107/66; PULSE 73; TEMP 36.7; O2SAT 90
[2016-08-21] MEDS: LEVOTHYROXINE 100 MCG TAB PO SCH (06:13)
[2016-08-21 08:08] VITALS: BP 95/62; PULSE 64; TEMP 36.3; O2SAT 91
[2016-08-21] MEDS: HEPARIN SOD (PORCINE) 1000 UNIT/ML 10 ML VIAL IV SCH ×2 (08:14→08:15)
[2016-08-21] MEDS: NEPHROCAPS PO SCH ×2 (08:19→21:24)
[2016-08-21] MEDS: FINASTERIDE 5 MG TAB PO SCH (08:19)
[2016-08-21] MEDS: GABAPENTIN 400 MG CAP PO SCH ×3 (08:19→21:25)
[2016-08-21] MEDS: LACTOBACILLUS ACIDOPHILUS (FLORANEX) TAB PO SCH ×2 (08:19→21:22)
[2016-08-21] MEDS: SUCRALFATE 1 GM/10 ML UDC PO SCH ×4 (08:19→21:21)
[2016-08-21] MEDS: ESCITALOPRAM OXALATE 10 MG TAB PO SCH (08:19)
[2016-08-21] MEDS: MIDODRINE 2.5 MG TAB PO SCH ×2 (08:19→16:37)
[2016-08-21] MEDS: PANTOprazole SOD 40 MG TAB PO SCH (08:19)
[2016-08-21] MEDS: FLUDROCORTISONE ACETATE 0.1 MG TAB PO SCH (08:20)
[2016-08-21] MEDS: METRONIDAZOLE 0.75% TOPICAL GEL 45 GM TUBE TOP SCH (08:20)
[2016-08-21] MEDS: CALCIUM ACETATE 667MG GELCAP PO SCH ×3 (08:20→16:37)
[2016-08-21] MEDS: APIXABAN 2.5 MG TAB PO SCH ×2 (08:20→21:21)
--- NOTE | 2016-08-21 09:38 | Hospitalist Progress Note ---
Hospitalist Progress Note Date of Service Aug 21, 2016. (Lyn Stubbs PA-C) Subjective Pt evaluation today including: conversation w/ patient, physical exam, chart review, lab review, review of studies, review of inpatient medication list Pain: None PO Intake: Good The patient was seen and examined this morning. Pt reports he slept well overnight, he has no acute complaints. Pt reports he is from home and had caregivers in his apartment 24/12. He is asking for referral to [facility] in [place] for SNF placement since this would be closer to his mother and sister. Will ask CM to assist with discharge planning. He report he does not urinate at all with ESRD on HD. Pt had last BM yesterday. 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), No redness ENT: No nasal symptoms, No sore throat Respiratory: No cough, No shortness of breath Cardiovascular: No chest pain, No palpitations Abdomen: No constipation, No diarrhea, No nausea, No pain, No vomiting Musculoskeletal: No joint pain, No muscle pain Male : + problem reported (does not make urine) Neurologic: No numbness/tingling, No weakness Skin: No itch, No rash (Lyn Stubbs, RAMBO) Objective Vital Signs Date Time Temp Pulse Resp B/P Pulse Ox O2 Delivery O2 Flow Rate FiO2 08/21/16 08:08 36.3 64 18 95/62 91 Room Air 08/21/16 00:45 Room Air 08/21/16 00:07 36.7 73 16 107/66 90 Room Air 08/20/16 19:15 Room Air 08/20/16 16:01 36.4 65 16 86/56 91 Room Air 08/20/16 14:59 37.0 68 92/58 08/20/16 12:46 67 70/57 08/20/16 12:35 66 86/44 08/20/16 12:24 68 85/52 08/20/16 11:54 68 83/51 08/20/16 11:47 70 93/57 08/20/16 11:30 70 18 103/51 08/20/16 11:08 76 18 70/49 Room Air 08/20/16 10:30 76 72/50 08/20/16 10:15 72 93/57 08/20/16 10:04 73 81/50 08/20/16 10:00 75 77/48 08/20/16 09:45 71 86/65 (Lyn Stubbs PA-C) Physical Exam Notes: General: awake, alert, no apparent distress, actively undergoing hemodialysis, appears much older than stated age Head: Normocephalic, atraumatic ENT: EOMI, + left eye remains closed during interview, no pharyngeal exudate, mucous membranes dry, Chest: + Chest port, Clear to auscultation, on room air, no adventitious breath sounds Cardiac: + Bradycardic, Regular rhythm, no murmur, no JVD, normal peripheral pulses, good capillary refill Abdominal: Normoactive bowel sounds 4, soft, nontender, no rebound, tenderness or guarding Extremities: +Left BKA, stump intact. Normal inspection, no peripheral edema or erythema, calfs nontender to palpation Psych: Normal mood and affect Neuro: AAO x 3, normal mood and affect., + mild expressive deficits in face (Lyn Stubbs PA-C) Laboratory Results Last 24 Hours Test 08/20/16 16:48 08/20/16 19:50 08/21/16 07:46 Bedside Glucose 95 mg/dl 261 mg/dl 90 mg/dl (Lyn Stubbs PA-C) Assessment and Plan This is a 60-year-old male admitted for behavioral issues, with past medical history of end-stage renal disease on hemodialysis, Anemia of chronic disease with baseline hemoglobin 8.5 to 9, diastolic CH, diabetes type 2, hypertension, CAD with history of NSTEMI, hyperlipidemia, hypothyroidism, migraine headache, hx CVA with mild expressive deficits, neuropathy, hx DVT, glaucoma, dialysis- related hypotension, possible history of ventricular arrhythmia. Inappropriate behavior - Psych consulted -history of inappropriate behavior with female staff- if available continue male nursing and that female staff be chaperoned when treating pt. We will need to eventaully find the pt placement - ER was unable to successfully place patient in the facility, CM to assist with discharge planning, family members are currently not willing to take the patient into their home to care for him, patient is from home and needs 24-hour care- Behavior is geared towards women. Caution for manipulative behavior - Office of aging to may need to be contacted if has not already been done - PT is requesting referral to [facility] in [place], will ask CM about referral ESRD on HD - Nephrology on board, most recent HD treatment is today, normal regimen is MWF - Does not make urine - Patient has history of dialysis-related hypertension, will continue Minitran and Florinef History of DVT -Continue apixaban 5 mg daily Diabetes II - Diabetic diet, ISS with Accu-Cheks ACHS Anemia of chronic disease - Hemoglobin is currently at baseline. Diastolic chronic heart failure. - The patient is euvolemic at present, does not complain of shortness of breath and will be scheduled for dialysis, regardless, to avoid volume overload. CAD - The patient is not currently on related medications. This is a possibility addressed with his physician prior to discharge, no evidence of acute coronary syndrome at present. Hypothyroidism - Continue Synthroid 100 mcg daily Hx C. difficile - Patient was recently treated with course of vancomycin, he denies currently having any symptomatic diarrhea Depression: Cont lexapro 10 mg daily Continue contact precautions DVT prophylaxis: Continue apixiban, Teds, SCDs CODE STATUS: DNR Disposition: Await placement options, care management assisting with discharge planning (Lyn Stubbs, RAMBO) Resident Physician Supervision Note: I interviewed and examined the patient. Discussed with Lyn Stubbs PAC and agree with findings and plan as documented in the note. Any exceptions or clarifications are listed here: None this pt was having care issues at home, is disabled and on chronic HD for ESRD. Was discharged from [facility] to home has not had success in this transition vitals are stable dialysis m-w- no real changes, needs psychiatry evaluation, for major depression continue support for esrd, have case management help with disposition Documented By: Rubio Henry (Rbuio Henry M.D.)
[2016-08-21 15:49] VITALS: BP 91/60; PULSE 63; TEMP 36.2; O2SAT 90
[2016-08-21] MEDS: LATANOPROST 0.005% OP SOLN 2.5 ML BTL OPL SCH (21:20)
[2016-08-22] VITALS (19 sets, daily range): BP systolic 78–108; BP diastolic 47–90; PULSE 60–71; TEMP 36.3–36.5; O2SAT 93
[2016-08-22] MEDS: LEVOTHYROXINE 100 MCG TAB PO SCH (06:26)
[2016-08-22] MEDS: ACETAMINOPHEN 325 MG TAB PO PRN ×2 (06:44→20:41)
[2016-08-22] MEDS: SUCRALFATE 1 GM/10 ML UDC PO SCH ×4 (07:43→20:35)
[2016-08-22] MEDS: METRONIDAZOLE 0.75% TOPICAL GEL 45 GM TUBE TOP SCH (07:44)
[2016-08-22] MEDS: APIXABAN 2.5 MG TAB PO SCH ×2 (07:44→20:36)
[2016-08-22] MEDS: FINASTERIDE 5 MG TAB PO SCH (07:45)
[2016-08-22] MEDS: LACTOBACILLUS ACIDOPHILUS (FLORANEX) TAB PO SCH ×2 (07:45→20:37)
[2016-08-22] MEDS: PANTOprazole SOD 40 MG TAB PO SCH (07:45)
[2016-08-22] MEDS: NEPHROCAPS PO SCH ×2 (07:45→20:37)
[2016-08-22] MEDS: MIDODRINE 2.5 MG TAB PO SCH ×2 (07:45→18:05)
[2016-08-22] MEDS: ESCITALOPRAM OXALATE 10 MG TAB PO SCH (07:45)
[2016-08-22] MEDS: CALCIUM ACETATE 667MG GELCAP PO SCH ×3 (07:45→18:05)
[2016-08-22] MEDS: FLUDROCORTISONE ACETATE 0.1 MG TAB PO SCH (07:47)
--- NOTE | 2016-08-22 08:43 | Nephrology Progress Note ---
Nephrology Progress Note Date of Service: Aug 22, 2016. Subjective 60 yo male with placement issues. pt feels good. no chest pain or sob. appetite is good. Objective Date Time Temp Pulse Resp B/P Pulse Ox O2 Delivery O2 Flow Rate FiO2 08/22/16 00:00 Room Air 08/21/16 20:00 Room Air 08/21/16 16:15 Room Air 08/21/16 15:49 36.2 63 16 91/60 90 Room Air Physical Exam: General-aaox3 Eyes-no scleral icterus ENT-mmm Neck-supple Lungs-decreased at bases Heart-regular Abdomen-bs+ s/nt/nd Extremities-left aka Neuro-nonfocal Current Inpatient Medications Medications (Trade) Dose Ordered Sig/Rigoberto Route Start Time Stop Time Status Last Admin Dose Admin Bisacodyl (Dulcolax Supp) 10 mg DAILY PRN ND 08/17/16 21:00 09/16/16 20:59 Calcium Acetate (Phoslo Cap) 2,001 mg TIDM PO 08/18/16 08:00 09/17/16 07:59 08/22/16 07:45 2,001 MG Escitalopram Oxalate (Lexapro Tab) 10 mg DAILY PO 08/18/16 09:00 09/17/16 08:59 08/22/16 07:45 10 MG Finasteride (Proscar Tab) 5 mg DAILY PO 08/18/16 09:00 09/17/16 08:59 08/22/16 07:45 5 MG Fludrocortisone Acetate (Florinef Tab) 0.1 mg DAILY PO 08/18/16 09:00 09/17/16 08:59 08/22/16 07:47 0.1 MG Gabapentin (Neurontin Cap) 400 mg MoWeFr@2100 PO 08/17/16 21:00 09/16/16 20:59 08/20/16 20:51 400 MG Gabapentin (Neurontin Cap) 400 mg SuTuThSa@0900,1400,2100 PO 08/18/16 09:00 09/17/16 08:59 08/21/16 21:25 400 MG Lactobacillus Acidophilus (Floranex Tab) 4 tab BID PO 08/17/16 21:00 09/16/16 20:59 08/22/16 07:45 4 TAB Latanoprost (Xalatan Oph Soln) 1 drops HS OPL 08/17/16 21:00 09/16/16 20:59 08/21/16 21:20 1 DROPS Levothyroxine Sodium (Synthroid Tab) 100 mcg DAILYBB PO 08/18/16 06:30 09/17/16 08:59 08/22/16 06:26 100 MCG Midodrine (Proamatine Tab) 2.5 mg BID17 PO 08/17/16 21:00 09/16/16 20:59 08/22/16 07:45 2.5 MG Oxycodone/ Acetaminophen (Percocet 5-325mg Tab) 1 tab Q4H PRN PO 08/17/16 21:00 08/31/16 20:59 Sucralfate (Carafate Susp) 1 gm QID PO 08/17/16 21:00 09/16/16 20:59 08/22/16 07:43 1 GM Apixaban (Eliquis Tab) 5 mg Q12 PO 08/17/16 21:00 09/16/16 20:59 08/22/16 07:44 5 MG Vitamin B Complex/ Vit C/Folic Acid (Nephrocaps) 1 cap BID PO 08/17/16 21:00 09/16/16 20:59 08/22/16 07:45 1 CAP Metronidazole HCl (Metrogel Topical Gel) 1 appln DAILY TOP 08/18/16 09:00 09/17/16 08:59 08/22/16 07:44 1 APPLN Pantoprazole Sodium (Protonix Tab) 40 mg DAILY PO 08/18/16 09:00 09/17/16 08:59 08/22/16 07:45 40 MG Acetaminophen (Tylenol Tab) 650 mg Q4H PRN PO 08/17/16 21:15 09/16/16 21:14 08/22/16 06:44 650 MG Al Hydrox/Mg Hydrox/Simethicone (Maalox Max Susp) 15 ml Q4H PRN PO 08/17/16 21:15 09/16/16 21:14 Magnesium Hydroxide (Milk Of Magnesia Susp) 30 ml Q6H PRN PO 08/17/16 21:15 09/16/16 21:14 Polyethylene (Miralax Powder Packet) 17 gm DAILY PRN PO 08/17/16 21:15 09/16/16 21:14 Ondansetron HCl (Zofran Inj) 4 mg Q6H PRN IV 08/17/16 21:15 09/16/16 21:14 Epoetin Juan A (Procrit Inj) 10,000 units TODAY@0900 IV. 08/22/16 09:00 08/22/16 23:59 Last 24 Hours Test 08/22/16 07:32 Bedside Glucose 161 mg/dl Assessment & Plan ESRD-for dialysis today. 2k bath. volume status appropriate. Anemia of renal failure-goal hg of 10 to 11. on procrit. placement-pt may or may not be accepted at [facility] given his behavioral issues.
--- NOTE | 2016-08-22 12:51 | Psychiatric Consultation ---
Consultation Identifying Data 60-year-old male with a history of depression and multiple medical problems, including end-stage renal disease on hemodialysis, diabetes, and heart failure, who is admitted to the hospitalist service due to inability to care for himself at home and lack of appropriate in-home care. Psychiatry was consulted for depression. Chief Complaint "I think pretty good". History of Present Illness The patient was last seen by the psychiatric consult service on 12/29/2015, at which point he was diagnosed with depression and started on Lexapro. He had a prolonged hospital course, and has been admitted 5 additional times in the past 6 months. Recently, he was admitted 08/17/2016 after he called 911 wanting to ride to dialysis due to difficulties with his in-home caretakers. Social work is trying to place him in a [place] [facility]. He was seen by the psychiatric liaison nurse while still in the emergency room 08/17/2016, and at that time reported that his mood has been stable and denied depressive symptoms. Since admission, he has been cooperative with care. Case management has been in contact with Adult Protective Services who are doing an investigation. He is being followed by nephrology and continues to receive dialysis. On my assessment, the patient states that his mood is "fair," and rates it an 8 out of 10. He thinks that medication has been helping, and says mood has been improved since he started the Lexapro this past summer. He denies neurovegetative symptoms, suicidality, homicidality, hallucinations, paranoia, and manic symptoms. He says he's here in the hospital because "couldn't get no caregivers, she was nasty to me so I was nasty right back." He understands that he's been referred to nursing homes, and is willing to go there if accepted. He denies any concerns about his mood, and was appropriate throughout my assessment. Past Psychiatric History Current OP Treatment: no current treatment (PCP manages antidepressant) Prior Psych Hospitalizations: [facility] (1) Depression No previous medication trials known. Denies history of violence towards others. Denies history of suicide attempts. Past Medical/Surgical History Problem List: (1) Arrhythmia (2) DM type 2 (diabetes mellitus, type 2) (3) End stage renal disease (4) Congestive Heart Failure Nos (5) Hyperlipidemia Nec/Nos (6) Hypertension Nos (7) Hypothyroidism Nos (8) Diabetic retinopathy (9) Polyneuropathy in diabetes (10) CAD (coronary artery disease) (11) History of non-ST elevation myocardial infarction (NSTEMI) (12) History of CVA (cerebrovascular accident) (13) Anemia (14) Vitamin D deficiency Allergies Allergies: Coded Allergies: No Known Allergies (Verified , `, 05/01/16) Home Medications Scheduled Apixaban (Eliquis), 5 MG PO Q12 B-Complex W/ C & Folic Acid (Nephronex), 5 ML PO BID Calcium Acetate (Phoslo 667 Mg), 2,001 MG PO TIDM Escitalopram (Lexapro), 10 MG PO DAILY Finasteride (Proscar), 5 MG PO DAILY Fludrocortisone Acetate (Florinef), 0.1 MG PO DAILY Gabapentin (Neurontin), 400 MG PO UD Gabapentin (Gabapentin), 400 MG PO UD Lactobacillus Acidophilus (Lactinex), 1 TAB PO BID Latanoprost (Xalatan 0.005% Oph Katya), 1 DROP OPL HS Levothyroxine Sodium (Synthroid), 100 MCG PO DAILY Metronidazole Hcl (Metronidazole), 1 APPLN TOP DAILY Midodrine Hcl (Midodrine Hcl), 2.5 MG PO BID Omeprazole (Prilosec), 20 MG PO DAILY Sucralfate (Sucralfate), 1 GM PO QID Scheduled PRN Acetaminophen Tab (Tylenol), 325-650 MG PO Q6H PRN for Pain or Fever Bisacodyl (Dulcolax), 1 SUPP UT DAILY PRN for Constipation Oxycodone/Acetaminophen 5MG/325MG (Percocet 5MG/325MG), 1 TABLET PO Q4H PRN for Pain Polyethylene Glycol 3350 (Bulk (Polyethylene Glycol 3350), 17 GM PO DAILY PRN for Constipation Sodium Phosphate/Biphosphate (Fleet Enema), 1 EA UT UD PRN for Constipation Vancomycin HCl (Vancomycin HCl), 1,000 MG IV UD PRN for Random Level Less Than 17 Family History FH: heart disease FATHER FHx: cancer FATHER Hypertension No known family mental health or substance abuse history Alcohol Use Alcohol Use In Past 12 Months: No Substance History The patient denies use of recreational drugs. Personal History Education: graduated from high school Work History: unemployed on disability Relationship History: Children: none Legal History: none Abuse History: none Review of Systems 10 systems reviewed; negative except as stated above. Examination Vital Signs Vital Signs Past 12 Hours Date Time Temp Pulse Resp B/P Pulse Ox O2 Delivery O2 Flow Rate FiO2 08/22/16 08:30 Room Air 08/22/16 08:00 36.4 60 20 101/65 93 Room Air Laboratory Results Last 24 Hours Test 08/22/16 07:32 Bedside Glucose 161 mg/dl Mental Examination During interview pt is: alert and oriented, cooperative Appearance: appropriately dressed (in a hospital gown), other (long chilel hair and white [place], appears significantly older than stated age.) Eye contact is: good Motor behavior is: steady gait & station, no abnormal motor movements Speech: normal in rate, rhythm & volume Affect: mood congruent, euthymic Mood is: other ("fair") Thought process: goal directed Thought content: reality based without delusions Suicidal thought are: denied Homicidal thoughts are: denied Hallucinations: denies auditory, denies visual Cognition: memory grossly intact, attention grossly intact, language grossly intact Intelligence estimated to be: consistent with level of education Insight: fair Judgement: fair Impression / Recommendations Impression History of major depression that appears well controlled with escitalopram 10 mg daily. Recommendations (1) Depression Continue escitalopram 10 mg daily for depression, which is stable currently. Continued follow-up with PCP for medication management. Low risk for harm to self or others, given stability of depressive disorder, absence of violence toward self or others in the past, good control of mood disorder, appropriate and cooperative behavior here in the hospital, lack of access to weapons, lack of concurrent substance abuse disorder, and denial of thoughts of harming self or others. Appropriate for [place] [facility] placement.
[2016-08-22] MEDS: EPOETIN ALFA 10,000 UNITS/ML VIAL IV. SCH ×2 (16:20→18:01)
--- NOTE | 2016-08-22 18:17 | Progress Note ---
Subjective Date of Service: Aug 22, 2016. Subjective pt has no complaints is considering trying to have prosthesis placed Problem List Medical Problems: (1) Abdominal pain Status: Acute (2) C. difficile colitis Status: Acute (3) Caregiver has difficulty performing caretaking Status: Acute (4) Colitis Status: Acute (5) Dehydration Status: Acute (6) Failure to thrive Status: Acute (7) Fever Status: Acute (8) Infection associated with peritoneal dialysis catheter Status: Acute (9) Lactic acidosis Status: Acute (10) Periumbilical abdominal pain Status: Acute (11) Pneumonia involving right lung Status: Acute (12) Sepsis Status: Acute (13) Septic shock Status: Acute (14) Vomiting Status: Acute (15) Weakness Status: Acute Review of Systems Constitutional: No chills, No fever Respiratory: No shortness of breath Cardiac: No chest pain, No edema Abdomen: No diarrhea, No nausea, No pain, No vomiting Male : No dysuria, No urinary frequency Objective Vital Signs Date Time Temp Pulse Resp B/P Pulse Ox O2 Delivery O2 Flow Rate FiO2 08/22/16 00:00 Room Air 08/21/16 20:00 Room Air 08/21/16 16:15 Room Air 08/21/16 15:49 36.2 63 16 91/60 90 Room Air 08/21/16 08:15 Room Air 08/21/16 08:08 36.3 64 18 95/62 91 Room Air Physical Exam General Appearance: WD/WN, + mild distress Neck: supple, no JVD Respiratory/Chest: chest non-tender, lungs clear, normal breath sounds Cardiovascular: regular rate, rhythm, no murmur Abdomen: normal bowel sounds, non tender, soft Extremities: no pedal edema, no calf tenderness Neurologic/Psychiatric: alert, oriented x 3 Laboratory Results Last 24 Hours Test 08/22/16 07:32 Bedside Glucose 161 mg/dl Assessment and Plan 60-year-old male admitted as has poor care situation at home, with past medical history of end-stage renal disease on hemodialysis, Anemia of chronic disease Chronic diastolic heart failure, diabetes type 2, hypertension, CAD with history of NSTEMI, hyperlipidemia, hypothyroidism, migraine headache, hx CVA with mild expressive deficits, neuropathy, hx DVT, glaucoma, dialysis-related hypotension, possible history of ventricular arrhythmia. No acute changes in care awaiting placement - Psych consulted -will need to define if Major depression is stable is on lexpro - [facility] of [facility] asisting in placement ESRD on HD - Nephrology dialysis MWF history of dialysis-related hypotension, will continue Minitran and Florinef History of DVT apixaban 5 mg daily Diabetes II ssi Anemia of chronic disease nephrology is managing Diastolic chronic heart failure. is euvolemic Hypothyroidism clinically stable Synthroid 100 mcg daily DVT is apixiban CODE STATUS: DNR Continued [facility] stay due to: home environment unsafe for pt Discharge planning: uncertain
[2016-08-22] MEDS: LATANOPROST 0.005% OP SOLN 2.5 ML BTL OPL SCH (20:35)
[2016-08-22] MEDS: GABAPENTIN 400 MG CAP PO SCH (20:38)
[2016-08-23 00:02] VITALS: BP 96/62; PULSE 64; TEMP 36.8; O2SAT 93
[2016-08-23] MEDS: LEVOTHYROXINE 100 MCG TAB PO SCH (06:26)
[2016-08-23 07:07] VITALS: BP 70/44; PULSE 61; TEMP 36.7; O2SAT 91
[2016-08-23] MEDS: METRONIDAZOLE 0.75% TOPICAL GEL 45 GM TUBE TOP SCH (07:49)
[2016-08-23] MEDS: FINASTERIDE 5 MG TAB PO SCH (07:49)
[2016-08-23] MEDS: GABAPENTIN 400 MG CAP PO SCH ×3 (07:49→20:02)
[2016-08-23] MEDS: MIDODRINE 2.5 MG TAB PO SCH ×2 (07:49→17:19)
[2016-08-23] MEDS: SUCRALFATE 1 GM/10 ML UDC PO SCH ×4 (07:49→20:02)
[2016-08-23] MEDS: PANTOprazole SOD 40 MG TAB PO SCH (07:49)
[2016-08-23] MEDS: NEPHROCAPS PO SCH ×2 (07:50→20:05)
[2016-08-23] MEDS: ESCITALOPRAM OXALATE 10 MG TAB PO SCH (07:50)
[2016-08-23] MEDS: LACTOBACILLUS ACIDOPHILUS (FLORANEX) TAB PO SCH ×2 (07:50→20:02)
[2016-08-23] MEDS: CALCIUM ACETATE 667MG GELCAP PO SCH ×3 (07:50→17:19)
[2016-08-23] MEDS: APIXABAN 2.5 MG TAB PO SCH ×2 (07:50→20:04)
[2016-08-23] MEDS: FLUDROCORTISONE ACETATE 0.1 MG TAB PO SCH (07:51)
[2016-08-23 08:57] LABS: CREATININE 6.5 mg/dl (0.60-1.40)
[2016-08-23 15:49] VITALS: BP 105/63; PULSE 61; TEMP 36.7; O2SAT 91
--- NOTE | 2016-08-23 17:12 | Progress Note ---
Subjective Date of Service: Aug 23, 2016. Subjective pt has no new complaints, awaiting placement Problem List Medical Problems: (1) Abdominal pain Status: Acute (2) C. difficile colitis Status: Acute (3) Caregiver has difficulty performing caretaking Status: Acute (4) Colitis Status: Acute (5) Dehydration Status: Acute (6) Failure to thrive Status: Acute (7) Fever Status: Acute (8) Infection associated with peritoneal dialysis catheter Status: Acute (9) Lactic acidosis Status: Acute (10) Periumbilical abdominal pain Status: Acute (11) Pneumonia involving right lung Status: Acute (12) Sepsis Status: Acute (13) Septic shock Status: Acute (14) Vomiting Status: Acute (15) Weakness Status: Acute Review of Systems Constitutional: No chills, No fever Respiratory: No cough, No shortness of breath Cardiac: No chest pain, No edema Abdomen: No nausea, No pain Musculoskeletal: No joint pain, No muscle pain, No swelling Male : No dysuria, No incontinence Psychiatric: + depression symptoms, No anhedonism Objective Vital Signs Date Time Temp Pulse Resp B/P Pulse Ox O2 Delivery O2 Flow Rate FiO2 08/23/16 16:30 Room Air 08/23/16 15:49 36.7 61 18 105/63 91 08/23/16 08:30 Room Air 08/23/16 07:07 36.7 61 18 70/44 91 Room Air 08/23/16 00:05 Room Air 08/23/16 00:02 36.8 64 18 96/62 93 Room Air 08/22/16 23:58 36.3 62 102/61 08/22/16 20:05 Room Air 08/22/16 17:32 36.3 102/61 08/22/16 17:31 62 86/51 08/22/16 17:15 62 94/90 Physical Exam General Appearance: WD/WN, + mild distress Neck: supple, no JVD Respiratory/Chest: chest non-tender, lungs clear, normal breath sounds Cardiovascular: regular rate, rhythm, no murmur Abdomen: normal bowel sounds, non tender, soft Extremities: no pedal edema, no calf tenderness Neurologic/Psychiatric: alert, oriented x 3 Laboratory Results Last 24 Hours Test 08/22/16 20:39 08/23/16 07:18 08/23/16 07:35 08/23/16 11:29 Bedside Glucose 146 mg/dl 101 mg/dl 110 mg/dl Creatinine 6.50 mg/dl Est Creatinine Clear Calc Drug Dose 12.8 ml/min Estimated GFR () 10.0 Estimated GFR (Non- 8.6 Test 08/23/16 16:16 Bedside Glucose 166 mg/dl Assessment and Plan 60-year-old male admitted as has poor care situation at home, with past medical history of end-stage renal disease on hemodialysis, Anemia of chronic disease Chronic diastolic heart failure, diabetes type 2, hypertension, CAD with history of NSTEMI, hyperlipidemia, hypothyroidism, migraine headache, hx CVA with mild expressive deficits, neuropathy, hx DVT, glaucoma, dialysis-related hypotension, possible history of ventricular arrhythmia. No acute changes in care awaiting placement - Psych consulted Major depression is stable is on lexpro, no med changes recommended - [facility] of aging assisting in placement ESRD on HD - Nephrology dialysis MWF history of dialysis-related hypotension, will continue Minitran and Florinef History of DVT apixaban 5 mg daily Diabetes II ssi Anemia of chronic disease nephrology is managing Diastolic chronic heart failure. is euvolemic Hypothyroidism clinically stable Synthroid 100 mcg daily DVT is apixiban CODE STATUS: DNR Continued [facility] stay due to: home environment unsafe for pt Discharge planning: uncertain
[2016-08-23] MEDS: LATANOPROST 0.005% OP SOLN 2.5 ML BTL OPL SCH (20:02)
[2016-08-24] VITALS (22 sets, daily range): BP systolic 90–102; BP diastolic 37–69; PULSE 58–68; TEMP 36.3–36.8; O2SAT 91–94
[2016-08-24] MEDS: ACETAMINOPHEN 325 MG TAB PO PRN (06:08)
[2016-08-24] MEDS: LEVOTHYROXINE 100 MCG TAB PO SCH (06:09)
[2016-08-24 07:28] LABS: HEMATOCRIT 32.2 % (42-52); MEAN CELL VOLUME 92.5 fL (80-100); MEAN CORPUSCULAR HEMOGLOBIN 28.7 pg (25-34); MEAN CORPUSCULAR HGB CONC 31.1 g/dl (32-36); MEAN PLATELET VOLUME 10.9 fL (7.4-10.4); PLATELET COUNT 246 K/uL (130-400); RED BLOOD COUNT 3.48 M/uL (4.7-6.1); WHITE BLOOD COUNT 4.74 K/uL (4.8-10.8)
[2016-08-24] MEDS ORDERED: EPOETIN ALFA 10,000 UNITS/ML VIAL IV. ONE (08:00)
[2016-08-24] MEDS ORDERED: HEPARIN SOD (PORCINE) 1000 UNIT/ML 10 ML VIAL IV SCH (08:00)
[2016-08-24] MEDS ORDERED: EPOETIN ALFA INJ 6,000 UNITS in SYRINGE 0 ML IV. SCH (08:00)
--- NOTE | 2016-08-24 08:41 | Dialysis Progress Note ---
Nephrology Dialysis Note Date of Service: Aug 24, 2016. Subjective 60 yo male admitted for placement. appears to be accepted at [facility]. seen on dialysis. pt feels good. no sob. good appetite. Objective Date Time Temp Pulse Resp B/P Pulse Ox O2 Delivery O2 Flow Rate FiO2 08/24/16 08:30 63 97/52 08/24/16 08:15 64 92/40 08/24/16 08:06 36.7 58 18 96/69 93 Room Air 08/24/16 08:00 68 97/39 08/24/16 07:45 63 98/50 08/24/16 07:30 62 97/50 08/24/16 07:15 62 95/52 08/24/16 07:05 36.7 58 96/49 08/24/16 00:53 36.8 67 18 99/66 94 Room Air 08/24/16 00:05 Room Air 08/23/16 16:30 Room Air 08/23/16 15:49 36.7 61 18 105/63 91 Physical Exam: General-aaox3 Eyes-no scleral icterus ENT-mmm Neck-supple Lungs-cta Heart-rrr Abdomen-bs+ s/nt/nd Extremities-left aka Neuro-nonfocal Current Inpatient Medications Medications (Trade) Dose Ordered Sig/Rigoberto Route Start Time Stop Time Status Last Admin Dose Admin Bisacodyl (Dulcolax Supp) 10 mg DAILY PRN [place] 08/17/16 21:00 09/16/16 20:59 Calcium Acetate (Phoslo Cap) 2,001 mg TIDM PO 08/18/16 08:00 09/17/16 07:59 08/23/16 17:19 2,001 MG Escitalopram Oxalate (Lexapro Tab) 10 mg DAILY PO 08/18/16 09:00 09/17/16 08:59 08/23/16 07:50 10 MG Finasteride (Proscar Tab) 5 mg DAILY PO 08/18/16 09:00 09/17/16 08:59 08/23/16 07:49 5 MG Fludrocortisone Acetate (Florinef Tab) 0.1 mg DAILY PO 08/18/16 09:00 09/17/16 08:59 08/23/16 07:51 0.1 MG Gabapentin (Neurontin Cap) 400 mg MoWeFr@2100 PO 08/17/16 21:00 09/16/16 20:59 08/22/16 20:38 400 MG Gabapentin (Neurontin Cap) 400 mg SuTuThSa@0900,1400,2100 PO 08/18/16 09:00 09/17/16 08:59 08/23/16 20:02 400 MG Lactobacillus Acidophilus (Floranex Tab) 4 tab BID PO 08/17/16 21:00 09/16/16 20:59 08/23/16 20:02 4 TAB Latanoprost (Xalatan Oph Soln) 1 drops HS OPL 08/17/16 21:00 09/16/16 20:59 08/23/16 20:02 1 DROPS Levothyroxine Sodium (Synthroid Tab) 100 mcg DAILYBB PO 08/18/16 06:30 09/17/16 08:59 08/24/16 06:09 100 MCG Midodrine (Proamatine Tab) 2.5 mg BID17 PO 08/17/16 21:00 09/16/16 20:59 08/23/16 17:19 2.5 MG Oxycodone/ Acetaminophen (Percocet 5-325mg Tab) 1 tab Q4H PRN PO 08/17/16 21:00 08/31/16 20:59 Sucralfate (Carafate Susp) 1 gm QID PO 08/17/16 21:00 09/16/16 20:59 08/23/16 20:02 1 GM Apixaban (Eliquis Tab) 5 mg Q12 PO 08/17/16 21:00 09/16/16 20:59 08/23/16 20:04 5 MG Vitamin B Complex/ Vit C/Folic Acid (Nephrocaps) 1 cap BID PO 08/17/16 21:00 09/16/16 20:59 08/23/16 20:05 1 CAP Metronidazole HCl (Metrogel Topical Gel) 1 appln DAILY TOP 08/18/16 09:00 09/17/16 08:59 08/23/16 07:49 1 APPLN Pantoprazole Sodium (Protonix Tab) 40 mg DAILY PO 08/18/16 09:00 09/17/16 08:59 08/23/16 07:49 40 MG Acetaminophen (Tylenol Tab) 650 mg Q4H PRN PO 08/17/16 21:15 09/16/16 21:14 08/24/16 06:08 650 MG Al Hydrox/Mg Hydrox/Simethicone (Maalox Max Susp) 15 ml Q4H PRN PO 08/17/16 21:15 09/16/16 21:14 Magnesium Hydroxide (Milk Of Magnesia Susp) 30 ml Q6H PRN PO 08/17/16 21:15 09/16/16 21:14 Polyethylene (Miralax Powder Packet) 17 gm DAILY PRN PO 08/17/16 21:15 09/16/16 21:14 Ondansetron HCl (Zofran Inj) 4 mg Q6H PRN IV 08/17/16 21:15 09/16/16 21:14 Heparin Sodium (Porcine) 400 unit 400 unit Q1H IV 08/24/16 08:00 08/24/16 10:01 Epoetin Juan A/ Syringe (Procrit Inj/ Syringe) 0.3 ml @ 1 mls/min TODAY@0800 IV. 08/24/16 08:00 08/24/16 18:00 Last 24 Hours Test 08/23/16 11:29 08/23/16 16:16 08/23/16 20:11 08/24/16 06:39 Bedside Glucose 110 mg/dl 166 mg/dl 105 mg/dl White Blood Count 4.74 K/uL Red Blood Count 3.48 M/uL Hemoglobin 10.0 g/dL Hematocrit 32.2 % Mean Corpuscular Volume 92.5 fL Mean Corpuscular Hemoglobin 28.7 pg Mean Corpuscular Hemoglobin Concent 31.1 g/dl RDW Standard Deviation 55.1 fL RDW Coefficient of Variation 16.5 % Platelet Count 246 K/uL Mean Platelet Volume 10.9 fL Total Bilirubin 0.4 mg/dl Direct Bilirubin 0.1 mg/dl Aspartate Amino Transf (AST/SGOT) 19 U/L Alanine Aminotransferase (ALT/SGPT) 26 U/L Alkaline Phosphatase 142 U/L Total Protein 7.1 gm/dl Albumin 2.6 gm/dl Test 08/24/16 07:38 Bedside Glucose 96 mg/dl Assessment & Plan ESRD-seen on dialysis. switching to a 2k bath. bp low but asymptomatic. goal 2liters uf. access working well.
[2016-08-24] MEDS: LACTOBACILLUS ACIDOPHILUS (FLORANEX) TAB PO SCH ×2 (11:52→21:31)
[2016-08-24] MEDS: PANTOprazole SOD 40 MG TAB PO SCH (11:52)
[2016-08-24] MEDS: FINASTERIDE 5 MG TAB PO SCH (11:52)
[2016-08-24] MEDS: CALCIUM ACETATE 667MG GELCAP PO SCH ×3 (11:53→16:59)
[2016-08-24] MEDS: ESCITALOPRAM OXALATE 10 MG TAB PO SCH (11:53)
[2016-08-24] MEDS: MIDODRINE 2.5 MG TAB PO SCH ×2 (11:53→16:58)
[2016-08-24] MEDS: NEPHROCAPS PO SCH ×2 (11:54→21:30)
[2016-08-24] MEDS: FLUDROCORTISONE ACETATE 0.1 MG TAB PO SCH (11:54)
[2016-08-24] MEDS: SUCRALFATE 1 GM/10 ML UDC PO SCH ×4 (11:54→21:30)
[2016-08-24] MEDS: APIXABAN 2.5 MG TAB PO SCH ×2 (11:54→21:31)
[2016-08-24] MEDS: METRONIDAZOLE 0.75% TOPICAL GEL 45 GM TUBE TOP SCH (11:55)
[2016-08-24] MEDS: HEPARIN SOD (PORCINE) 1000 UNIT/ML 10 ML VIAL IV SCH ×2 (17:06→17:07)
--- NOTE | 2016-08-24 17:28 | Progress Note ---
Subjective Date of Service: Aug 24, 2016. Subjective pt about the same no complaints Problem List Medical Problems: (1) Abdominal pain Status: Acute (2) C. difficile colitis Status: Acute (3) Caregiver has difficulty performing caretaking Status: Acute (4) Colitis Status: Acute (5) Dehydration Status: Acute (6) Failure to thrive Status: Acute (7) Fever Status: Acute (8) Infection associated with peritoneal dialysis catheter Status: Acute (9) Lactic acidosis Status: Acute (10) Periumbilical abdominal pain Status: Acute (11) Pneumonia involving right lung Status: Acute (12) Sepsis Status: Acute (13) Septic shock Status: Acute (14) Vomiting Status: Acute (15) Weakness Status: Acute Review of Systems Constitutional: + fatigue, + weakness, No chills, No fever Respiratory: No cough, No shortness of breath Cardiac: No chest pain, No edema Abdomen: No diarrhea, No nausea, No pain, No vomiting Objective Vital Signs Date Time Temp Pulse Resp B/P Pulse Ox O2 Delivery O2 Flow Rate FiO2 08/24/16 16:44 36.5 64 18 93/57 93 Room Air 08/24/16 10:57 36.7 58 101/52 08/24/16 10:45 60 90/47 08/24/16 10:30 63 95/54 08/24/16 10:15 61 94/45 08/24/16 10:00 59 92/37 08/24/16 09:45 62 96/44 08/24/16 09:30 66 93/43 08/24/16 09:15 59 102/44 08/24/16 09:00 62 96/37 08/24/16 08:45 64 95/46 08/24/16 08:30 63 97/52 08/24/16 08:30 Room Air 08/24/16 08:15 64 92/40 08/24/16 08:06 36.7 58 18 96/69 93 Room Air 08/24/16 08:00 68 97/39 08/24/16 07:45 63 98/50 08/24/16 07:30 62 97/50 08/24/16 07:15 62 95/52 08/24/16 07:05 36.7 58 96/49 08/24/16 00:53 36.8 67 18 99/66 94 Room Air 08/24/16 00:05 Room Air Physical Exam General Appearance: WD/WN, no apparent distress Neck: supple, no JVD Respiratory/Chest: chest non-tender, lungs clear, normal breath sounds Cardiovascular: regular rate, rhythm, no murmur Abdomen: normal bowel sounds, non tender, soft Laboratory Results Last 24 Hours Test 08/23/16 20:11 08/24/16 06:39 08/24/16 07:38 08/24/16 11:47 Bedside Glucose 105 mg/dl 96 mg/dl 82 mg/dl White Blood Count 4.74 K/uL Red Blood Count 3.48 M/uL Hemoglobin 10.0 g/dL Hematocrit 32.2 % Mean Corpuscular Volume 92.5 fL Mean Corpuscular Hemoglobin 28.7 pg Mean Corpuscular Hemoglobin Concent 31.1 g/dl RDW Standard Deviation 55.1 fL RDW Coefficient of Variation 16.5 % Platelet Count 246 K/uL Mean Platelet Volume 10.9 fL Total Bilirubin 0.4 mg/dl Direct Bilirubin 0.1 mg/dl Aspartate Amino Transf (AST/SGOT) 19 U/L Alanine Aminotransferase (ALT/SGPT) 26 U/L Alkaline Phosphatase 142 U/L Total Protein 7.1 gm/dl Albumin 2.6 gm/dl Test 08/24/16 16:21 Bedside Glucose 92 mg/dl Assessment and Plan 60-year-old male admitted as has poor care situation at home, with past medical history of end-stage renal disease on hemodialysis, Anemia of chronic disease Chronic diastolic heart failure, diabetes type 2, hypertension, CAD with history of NSTEMI, hyperlipidemia, hypothyroidism, migraine headache, hx CVA with mild expressive deficits, neuropathy, hx DVT, glaucoma, dialysis-related hypotension, possible history of ventricular arrhythmia. No acute changes in care awaiting placement case management has no news 08/24 - Psych consulted Major depression is stable is on lexpro, no med changes recommended - [facility] of aging assisting in placement ESRD on HD - Nephrology dialysis MWF history of dialysis-related hypotension, will continue Minitran and Florinef History of DVT apixaban 5 mg daily Diabetes II ssi Anemia of chronic disease nephrology is managing Diastolic chronic heart failure. is euvolemic Hypothyroidism clinically stable Synthroid 100 mcg daily DVT is apixiban CODE STATUS: DNR Continued [facility] stay due to: home environment unsafe for pt Discharge planning: uncertain
[2016-08-24] MEDS: GABAPENTIN 400 MG CAP PO SCH (21:30)
[2016-08-24] MEDS: LATANOPROST 0.005% OP SOLN 2.5 ML BTL OPL SCH (21:30)
[2016-08-25] VITALS: O2SAT 93
[2016-08-25 07:13] VITALS: BP 77/46; PULSE 61; TEMP 36.7; O2SAT 92
[2016-08-25 07:27] VITALS: BP 94/60
--- NOTE | 2016-08-25 07:43 | Progress Note ---
Subjective Date of Service: Aug 25, 2016. Subjective this pt has no new changes, awaiting placement Problem List Medical Problems: (1) Abdominal pain Status: Acute (2) C. difficile colitis Status: Acute (3) Caregiver has difficulty performing caretaking Status: Acute (4) Colitis Status: Acute (5) Dehydration Status: Acute (6) Failure to thrive Status: Acute (7) Fever Status: Acute (8) Infection associated with peritoneal dialysis catheter Status: Acute (9) Lactic acidosis Status: Acute (10) Periumbilical abdominal pain Status: Acute (11) Pneumonia involving right lung Status: Acute (12) Sepsis Status: Acute (13) Septic shock Status: Acute (14) Vomiting Status: Acute (15) Weakness Status: Acute Review of Systems Constitutional: + weakness, No chills, No fever Cardiac: No chest pain, No edema Abdomen: No diarrhea, No nausea, No pain, No vomiting Neurologic: No memory loss, No numbness/tingling Psychiatric: No anhedonism, No depression symptoms Objective Vital Signs Date Time Temp Pulse Resp B/P Pulse Ox O2 Delivery O2 Flow Rate FiO2 08/25/16 07:27 94/60 08/25/16 07:13 36.7 61 15 77/46 92 Room Air 08/25/16 00:00 93 Room Air 08/24/16 23:29 36.3 66 16 97/62 91 Room Air 08/24/16 16:44 36.5 64 18 93/57 93 Room Air 08/24/16 16:00 93 Room Air 08/24/16 10:57 36.7 58 101/52 08/24/16 10:45 60 90/47 08/24/16 10:30 63 95/54 08/24/16 10:15 61 94/45 08/24/16 10:00 59 92/37 08/24/16 09:45 62 96/44 08/24/16 09:30 66 93/43 08/24/16 09:15 59 102/44 08/24/16 09:00 62 96/37 08/24/16 08:45 64 95/46 08/24/16 08:30 63 97/52 08/24/16 08:30 Room Air 08/24/16 08:15 64 92/40 08/24/16 08:06 36.7 58 18 96/69 93 Room Air 08/24/16 08:00 68 97/39 08/24/16 07:45 63 98/50 Physical Exam General Appearance: WD/WN, + mild distress Respiratory/Chest: chest non-tender, lungs clear Cardiovascular: regular rate, rhythm, no murmur Neurologic/Psychiatric: alert, oriented x 3 Laboratory Results Last 24 Hours Test 08/24/16 11:47 08/24/16 16:21 08/24/16 19:56 Bedside Glucose 82 mg/dl 92 mg/dl 160 mg/dl Assessment and Plan 60-year-old male admitted as has poor care situation at home, with past medical history of end-stage renal disease on hemodialysis, Anemia of chronic disease Chronic diastolic heart failure, diabetes type 2, hypertension, CAD with history of NSTEMI, hyperlipidemia, hypothyroidism, migraine headache, hx CVA with mild expressive deficits, neuropathy, hx DVT, glaucoma, dialysis-related hypotension, possible history of ventricular arrhythmia. No acute changes in care awaiting placement case management has no news 08/25 - Psych consulted Major depression is stable is on lexpro, no med changes recommended - [facility] assisting in placement ESRD on HD - Nephrology dialysis MWF history of dialysis-related hypotension, will continue Minitran and Florinef History of DVT apixaban 5 mg daily Diabetes II ssi Anemia of chronic disease nephrology is managing Diastolic chronic heart failure. is euvolemic Hypothyroidism clinically stable Synthroid 100 mcg daily DVT is apixiban CODE STATUS: DNR Continued [facility] stay due to: home environment unsafe for pt Discharge planning: uncertain
[2016-08-25] MEDS: LEVOTHYROXINE 100 MCG TAB PO SCH (08:18)
[2016-08-25] MEDS: SUCRALFATE 1 GM/10 ML UDC PO SCH ×4 (08:18→20:54)
[2016-08-25] MEDS: CALCIUM ACETATE 667MG GELCAP PO SCH ×3 (08:18→17:18)
[2016-08-25] MEDS: LACTOBACILLUS ACIDOPHILUS (FLORANEX) TAB PO SCH ×2 (08:19→20:53)
[2016-08-25] MEDS: FINASTERIDE 5 MG TAB PO SCH (08:19)
[2016-08-25] MEDS: MIDODRINE 2.5 MG TAB PO SCH ×2 (08:19→17:18)
[2016-08-25] MEDS: NEPHROCAPS PO SCH ×2 (08:19→20:52)
[2016-08-25] MEDS: GABAPENTIN 400 MG CAP PO SCH ×3 (08:19→20:52)
[2016-08-25] MEDS: FLUDROCORTISONE ACETATE 0.1 MG TAB PO SCH (08:19)
[2016-08-25] MEDS: PANTOprazole SOD 40 MG TAB PO SCH (08:19)
[2016-08-25] MEDS: APIXABAN 2.5 MG TAB PO SCH ×2 (08:19→20:52)
[2016-08-25] MEDS: ESCITALOPRAM OXALATE 10 MG TAB PO SCH (08:19)
[2016-08-25] MEDS: METRONIDAZOLE 0.75% TOPICAL GEL 45 GM TUBE TOP SCH (08:20)
[2016-08-25 16:00] VITALS: O2SAT 93
[2016-08-25 17:24] VITALS: BP 121/72; PULSE 61; TEMP 36.6; O2SAT 91
[2016-08-25] MEDS: LATANOPROST 0.005% OP SOLN 2.5 ML BTL OPL SCH (20:53)
[2016-08-25 23:43] VITALS: BP 92/60; PULSE 84; TEMP 36.6; O2SAT 98
[2016-08-26] MEDS: LEVOTHYROXINE 100 MCG TAB PO SCH (06:22)
[2016-08-26 07:30] VITALS: BP 93/60; PULSE 59; TEMP 36.5; O2SAT 91
[2016-08-26] MEDS: SUCRALFATE 1 GM/10 ML UDC PO SCH ×4 (08:26→21:00)
[2016-08-26] MEDS: APIXABAN 2.5 MG TAB PO SCH ×2 (08:29→21:25)
[2016-08-26] MEDS: CALCIUM ACETATE 667MG GELCAP PO SCH ×3 (08:29→16:47)
[2016-08-26] MEDS: ESCITALOPRAM OXALATE 10 MG TAB PO SCH (08:30)
[2016-08-26] MEDS: FINASTERIDE 5 MG TAB PO SCH (08:30)
[2016-08-26] MEDS: NEPHROCAPS PO SCH ×2 (08:30→21:26)
[2016-08-26] MEDS: MIDODRINE 2.5 MG TAB PO SCH ×2 (08:30→16:47)
[2016-08-26] MEDS: LACTOBACILLUS ACIDOPHILUS (FLORANEX) TAB PO SCH ×2 (08:30→21:00)
[2016-08-26] MEDS: FLUDROCORTISONE ACETATE 0.1 MG TAB PO SCH (08:30)
[2016-08-26] MEDS: GABAPENTIN 400 MG CAP PO SCH ×3 (08:30→21:26)
[2016-08-26] MEDS: METRONIDAZOLE 0.75% TOPICAL GEL 45 GM TUBE TOP SCH (08:30)
[2016-08-26] MEDS: PANTOprazole SOD 40 MG TAB PO SCH (08:30)
[2016-08-26 08:36] LABS: CREATININE 7.8 mg/dl (0.60-1.40)
--- NOTE | 2016-08-26 14:34 | Progress Note ---
Subjective Date of Service: Aug 26, 2016. Subjective no new changes, awaiting placement Problem List Medical Problems: (1) Abdominal pain Status: Acute (2) C. difficile colitis Status: Acute (3) Caregiver has difficulty performing caretaking Status: Acute (4) Colitis Status: Acute (5) Dehydration Status: Acute (6) Failure to thrive Status: Acute (7) Fever Status: Acute (8) Infection associated with peritoneal dialysis catheter Status: Acute (9) Lactic acidosis Status: Acute (10) Periumbilical abdominal pain Status: Acute (11) Pneumonia involving right lung Status: Acute (12) Sepsis Status: Acute (13) Septic shock Status: Acute (14) Vomiting Status: Acute (15) Weakness Status: Acute Review of Systems Constitutional: No chills, No fever, No weakness Respiratory: No cough, No dyspnea on exertion, No shortness of breath Cardiac: No chest pain, No claudication, No edema Abdomen: No diarrhea, No nausea, No pain, No vomiting Psychiatric: No anhedonism, No depression symptoms Objective Vital Signs Date Time Temp Pulse Resp B/P Pulse Ox O2 Delivery O2 Flow Rate FiO2 08/26/16 08:00 Room Air 08/26/16 07:30 36.5 59 18 93/60 91 Room Air 08/26/16 00:00 Room Air 08/25/16 23:43 36.6 84 18 92/60 98 Room Air 08/25/16 17:24 36.6 61 16 121/72 91 Room Air 08/25/16 16:00 93 Room Air Physical Exam General Appearance: WD/WN, + mild distress Neck: supple, no JVD Respiratory/Chest: chest non-tender, lungs clear, normal breath sounds Cardiovascular: regular rate, rhythm, no murmur Abdomen: normal bowel sounds, non tender, soft Extremities: no pedal edema, no calf tenderness Neurologic/Psychiatric: alert, oriented x 3 Laboratory Results Last 24 Hours Test 08/25/16 16:28 08/25/16 20:45 08/26/16 07:11 08/26/16 07:39 Bedside Glucose 157 mg/dl 93 mg/dl 81 mg/dl Creatinine 7.80 mg/dl Est Creatinine Clear Calc Drug Dose 10.7 ml/min Estimated GFR () 8.0 Estimated GFR (Non- 6.9 Test 08/26/16 11:29 Bedside Glucose 95 mg/dl Assessment and Plan 60-year-old male admitted as has poor care situation at home, with past medical history of end-stage renal disease on hemodialysis, Anemia of chronic disease Chronic diastolic heart failure, diabetes type 2, hypertension, CAD with history of NSTEMI, hyperlipidemia, hypothyroidism, migraine headache, hx CVA with mild expressive deficits, neuropathy, hx DVT, glaucoma, dialysis-related hypotension, possible history of ventricular arrhythmia. No acute changes in care awaiting placement case management has no news 08/26 - Psych consulted Major depression is stable is on lexpro, no med changes recommended - [facility] assisting in placement ESRD on HD - Nephrology dialysis MWF history of dialysis-related hypotension, will continue Minitran and Florinef History of DVT apixaban 5 mg daily Diabetes II ssi Anemia of chronic disease nephrology is managing Diastolic chronic heart failure. is euvolemic Hypothyroidism clinically stable Synthroid 100 mcg daily DVT is apixiban CODE STATUS: DNR Continued [facility] stay due to: home environment unsafe for pt Discharge planning: uncertain
[2016-08-26 15:50] VITALS: BP 111/77; PULSE 67; TEMP 36.2; O2SAT 90
[2016-08-26 16:00] VITALS: O2SAT 91
[2016-08-26] MEDS: LATANOPROST 0.005% OP SOLN 2.5 ML BTL OPL SCH (21:24)
[2016-08-26 23:40] VITALS: BP 93/58; PULSE 66; TEMP 36.6; O2SAT 90
[2016-08-27] VITALS (12 sets, daily range): BP systolic 75–102; BP diastolic 47–68; PULSE 60–72; TEMP 36.5–37; O2SAT 90–92
[2016-08-27] MEDS: LEVOTHYROXINE 100 MCG TAB PO SCH (06:03)
[2016-08-27] MEDS ORDERED: EPOETIN ALFA 10,000 UNITS/ML VIAL IV. SCH (07:00)
[2016-08-27] MEDS: SUCRALFATE 1 GM/10 ML UDC PO SCH ×4 (08:00→20:23)
[2016-08-27] MEDS: CALCIUM ACETATE 667MG GELCAP PO SCH ×3 (08:07→16:55)
[2016-08-27] MEDS: APIXABAN 2.5 MG TAB PO SCH ×2 (08:07→20:23)
[2016-08-27] MEDS: LACTOBACILLUS ACIDOPHILUS (FLORANEX) TAB PO SCH ×2 (08:07→20:22)
[2016-08-27] MEDS: NEPHROCAPS PO SCH ×2 (08:08→20:22)
[2016-08-27] MEDS: FLUDROCORTISONE ACETATE 0.1 MG TAB PO SCH (08:08)
[2016-08-27] MEDS: ESCITALOPRAM OXALATE 10 MG TAB PO SCH (08:08)
[2016-08-27] MEDS: FINASTERIDE 5 MG TAB PO SCH (08:08)
[2016-08-27] MEDS: PANTOprazole SOD 40 MG TAB PO SCH (08:09)
[2016-08-27] MEDS: MIDODRINE 2.5 MG TAB PO SCH ×2 (08:09→16:54)
[2016-08-27] MEDS: METRONIDAZOLE 0.75% TOPICAL GEL 45 GM TUBE TOP SCH (08:09)
[2016-08-27 09:01] LABS: BUN/CREATININE RATIO 12.6 (10-20); CREATININE 9.5 mg/dl (0.60-1.40)
--- NOTE | 2016-08-27 10:06 | Nephrology Progress Note ---
Nephrology Progress Note Date of Service: Aug 27, 2016. Subjective 60 yo male admitted for placement. no complaints. has been getting dialysis in hospital m-w-f. denies any diarrhea. no sob. no chest pain. appetite is good. Objective Date Time Temp Pulse Resp B/P Pulse Ox O2 Delivery O2 Flow Rate FiO2 08/27/16 08:15 36.5 70 20 102/67 91 Room Air 08/27/16 08:00 Room Air 08/27/16 00:00 Room Air 08/26/16 23:40 36.6 66 18 93/58 90 Room Air 08/26/16 16:00 91 Room Air 08/26/16 15:50 36.2 67 16 111/77 90 Physical Exam: General-aaox3 Eyes-no scleral icterus ENT-mmm Neck-supple Lungs-clear Heart-regular Abdomen-bs+ s/nt/nd Extremities-left aka Neuro-nonfocal Current Inpatient Medications Medications (Trade) Dose Ordered Sig/Rigoberto Route Start Time Stop Time Status Last Admin Dose Admin Bisacodyl (Dulcolax Supp) 10 mg DAILY PRN [place] 08/17/16 21:00 09/16/16 20:59 Calcium Acetate (Phoslo Cap) 2,001 mg TIDM PO 08/18/16 08:00 09/17/16 07:59 08/27/16 08:07 2,001 MG Escitalopram Oxalate (Lexapro Tab) 10 mg DAILY PO 08/18/16 09:00 09/17/16 08:59 08/27/16 08:08 10 MG Finasteride (Proscar Tab) 5 mg DAILY PO 08/18/16 09:00 09/17/16 08:59 08/27/16 08:08 5 MG Fludrocortisone Acetate (Florinef Tab) 0.1 mg DAILY PO 08/18/16 09:00 09/17/16 08:59 08/27/16 08:08 0.1 MG Gabapentin (Neurontin Cap) 400 mg MoWeFr@2100 PO 08/17/16 21:00 09/16/16 20:59 08/24/16 21:30 400 MG Gabapentin (Neurontin Cap) 400 mg SuTuThSa@0900,1400,2100 PO 08/18/16 09:00 09/17/16 08:59 08/26/16 21:26 400 MG Lactobacillus Acidophilus (Floranex Tab) 4 tab BID PO 08/17/16 21:00 09/16/16 20:59 08/27/16 08:07 4 TAB Latanoprost (Xalatan Oph Soln) 1 drops HS OPL 08/17/16 21:00 09/16/16 20:59 08/26/16 21:24 1 DROPS Levothyroxine Sodium (Synthroid Tab) 100 mcg DAILYBB PO 08/18/16 06:30 09/17/16 08:59 08/27/16 06:03 100 MCG Midodrine (Proamatine Tab) 2.5 mg BID17 PO 08/17/16 21:00 09/16/16 20:59 08/27/16 08:09 2.5 MG Oxycodone/ Acetaminophen (Percocet 5-325mg Tab) 1 tab Q4H PRN PO 08/17/16 21:00 08/31/16 20:59 Sucralfate (Carafate Susp) 1 gm QID PO 08/17/16 21:00 09/16/16 20:59 08/25/16 08:18 1 GM Apixaban (Eliquis Tab) 5 mg Q12 PO 08/17/16 21:00 09/16/16 20:59 08/27/16 08:07 2.5 MG Vitamin B Complex/ Vit C/Folic Acid (Nephrocaps) 1 cap BID PO 08/17/16 21:00 09/16/16 20:59 08/27/16 08:08 1 CAP Metronidazole HCl (Metrogel Topical Gel) 1 appln DAILY TOP 08/18/16 09:00 09/17/16 08:59 08/27/16 08:09 1 APPLN Pantoprazole Sodium (Protonix Tab) 40 mg DAILY PO 08/18/16 09:00 09/17/16 08:59 08/27/16 08:09 40 MG Acetaminophen (Tylenol Tab) 650 mg Q4H PRN PO 08/17/16 21:15 09/16/16 21:14 08/24/16 06:08 650 MG Al Hydrox/Mg Hydrox/Simethicone (Maalox Max Susp) 15 ml Q4H PRN PO 08/17/16 21:15 09/16/16 21:14 Magnesium Hydroxide (Milk Of Magnesia Susp) 30 ml Q6H PRN PO 08/17/16 21:15 09/16/16 21:14 08/25/16 09:25 30 ML Polyethylene (Miralax Powder Packet) 17 gm DAILY PRN PO 08/17/16 21:15 09/16/16 21:14 08/25/16 14:05 17 GM Ondansetron HCl (Zofran Inj) 4 mg Q6H PRN IV 08/17/16 21:15 09/16/16 21:14 Epoetin Juan A (Procrit Inj) 10,000 units TODAY@0700 IV. 08/27/16 07:00 08/27/16 18:00 Last 24 Hours Test 08/26/16 11:29 08/26/16 16:26 08/26/16 19:29 08/27/16 07:39 Bedside Glucose 95 mg/dl 88 mg/dl 93 mg/dl 127 mg/dl Test 08/27/16 08:15 Sodium Level 134 mmol/L Potassium Level 5.0 mmol/L Chloride Level 100 mmol/L Carbon Dioxide Level 17 mmol/L Anion Gap 17.0 mmol/L Blood Urea Nitrogen 118 mg/dl Creatinine 9.50 mg/dl Est Creatinine Clear Calc Drug Dose 8.8 ml/min Estimated GFR () 6.3 Estimated GFR (Non- 5.4 BUN/Creatinine Ratio 12.6 Random Glucose 145 mg/dl Calcium Level 9.0 mg/dl Assessment & Plan ESRD-for dialysis today. 2k bath. chronic low bp on dialysis. asymptomatic. on midodrine and florinef to help with bp. Anemia of renal failure-hg levels are stable. on procrit. hg of 10 at last check. LILA-continues on binders. will check phos levels intermittently.
--- NOTE | 2016-08-27 14:44 | Progress Note ---
Subjective Date of Service: Aug 27, 2016. Subjective Pt evaluation today including: conversation w/ patient, physical exam, chart review, lab review Voiding: no voiding problems Problem List Medical Problems: (1) Abdominal pain Status: Acute (2) C. difficile colitis Status: Acute (3) Caregiver has difficulty performing caretaking Status: Acute (4) Colitis Status: Acute (5) Dehydration Status: Acute (6) Failure to thrive Status: Acute (7) Fever Status: Acute (8) Infection associated with peritoneal dialysis catheter Status: Acute (9) Lactic acidosis Status: Acute (10) Periumbilical abdominal pain Status: Acute (11) Pneumonia involving right lung Status: Acute (12) Sepsis Status: Acute (13) Septic shock Status: Acute (14) Vomiting Status: Acute (15) Weakness Status: Acute Review of Systems Constitutional: No chills, No fatigue, No fever, No problem reported, No see HPI, No sweats, No weakness, No weight loss Eyes: No diplopia, No discharge, No eye pain, No problem reported, No redness, No see HPI, No worsening of vision ENT: No dental problems, No hearing loss, No nasal symptoms, No problem reported, No see HPI, No sore throat, No tinnitus, No trouble swallowing, No unusual epistaxis Respiratory: No cough, No dyspnea at rest, No dyspnea on exertion, No hemoptysis, No problem reported, No see HPI, No shortness of breath, No sputum, No wheezing Cardiac: No PND, No chest pain, No claudication, No edema, No orthopnea, No palpitations, No problem reported, No see HPI Abdomen: No GI bleeding, No constipation, No diarrhea, No nausea, No pain, No problem reported, No see HPI, No vomiting Musculoskeletal: No calf pain, No joint pain, No muscle pain, No problem reported, No see HPI, No swelling Psychiatric: No anhedonism, No anxiety, No depression symptoms, No insomnia, No problem reported, No see HPI, No substance abuse Heme: No abnormal bleeding/bruising, No clotting problems, No night sweats, No problem reported, No see HPI, No swollen lymph nodes Endo: No excessive thirst, No excessive urination, No fatigue, No problem reported, No see HPI Skin: No bleeding, No color change, No itch, No new/changing skin lesions, No problem reported, No rash, No see HPI Medications Current Inpatient Medications Medications (Trade) Dose Ordered Sig/Rigoberto Route Start Time Stop Time Status Last Admin Dose Admin Bisacodyl (Dulcolax Supp) 10 mg DAILY PRN [place] 08/17/16 21:00 09/16/16 20:59 Calcium Acetate (Phoslo Cap) 2,001 mg TIDM PO 08/18/16 08:00 09/17/16 07:59 08/27/16 12:00 2,001 MG Escitalopram Oxalate (Lexapro Tab) 10 mg DAILY PO 08/18/16 09:00 09/17/16 08:59 08/27/16 08:08 10 MG Finasteride (Proscar Tab) 5 mg DAILY PO 08/18/16 09:00 09/17/16 08:59 08/27/16 08:08 5 MG Fludrocortisone Acetate (Florinef Tab) 0.1 mg DAILY PO 08/18/16 09:00 09/17/16 08:59 08/27/16 08:08 0.1 MG Gabapentin (Neurontin Cap) 400 mg MoWeFr@2100 PO 08/17/16 21:00 09/16/16 20:59 08/24/16 21:30 400 MG Gabapentin (Neurontin Cap) 400 mg SuTuThSa@0900,1400,2100 PO 08/18/16 09:00 09/17/16 08:59 08/26/16 21:26 400 MG Lactobacillus Acidophilus (Floranex Tab) 4 tab BID PO 08/17/16 21:00 09/16/16 20:59 08/27/16 08:07 4 TAB Latanoprost (Xalatan Oph Soln) 1 drops HS OPL 08/17/16 21:00 09/16/16 20:59 08/26/16 21:24 1 DROPS Levothyroxine Sodium (Synthroid Tab) 100 mcg DAILYBB PO 08/18/16 06:30 09/17/16 08:59 08/27/16 06:03 100 MCG Midodrine (Proamatine Tab) 2.5 mg BID17 PO 08/17/16 21:00 09/16/16 20:59 08/27/16 08:09 2.5 MG Oxycodone/ Acetaminophen (Percocet 5-325mg Tab) 1 tab Q4H PRN PO 08/17/16 21:00 3/31/17 20:59 Sucralfate (Carafate Susp) 1 gm QID PO 08/17/16 21:00 09/16/16 20:59 08/25/16 08:18 1 GM Apixaban (Eliquis Tab) 5 mg Q12 PO 08/17/16 21:00 09/16/16 20:59 08/27/16 08:07 2.5 MG Vitamin B Complex/ Vit C/Folic Acid (Nephrocaps) 1 cap BID PO 08/17/16 21:00 09/16/16 20:59 08/27/16 08:08 1 CAP Metronidazole HCl (Metrogel Topical Gel) 1 appln DAILY TOP 08/18/16 09:00 09/17/16 08:59 08/27/16 08:09 1 APPLN Pantoprazole Sodium (Protonix Tab) 40 mg DAILY PO 08/18/16 09:00 09/17/16 08:59 08/27/16 08:09 40 MG Acetaminophen (Tylenol Tab) 650 mg Q4H PRN PO 08/17/16 21:15 09/16/16 21:14 08/24/16 06:08 650 MG Al Hydrox/Mg Hydrox/Simethicone (Maalox Max Susp) 15 ml Q4H PRN PO 08/17/16 21:15 09/16/16 21:14 Magnesium Hydroxide (Milk Of Magnesia Susp) 30 ml Q6H PRN PO 08/17/16 21:15 09/16/16 21:14 08/25/16 09:25 30 ML Polyethylene (Miralax Powder Packet) 17 gm DAILY PRN PO 08/17/16 21:15 09/16/16 21:14 08/25/16 14:05 17 GM Ondansetron HCl (Zofran Inj) 4 mg Q6H PRN IV 08/17/16 21:15 09/16/16 21:14 Epoetin Juan A (Procrit Inj) 10,000 units TODAY@0700 IV. 08/27/16 07:00 08/27/16 18:00 Objective Vital Signs Date Time Temp Pulse Resp B/P Pulse Ox O2 Delivery O2 Flow Rate FiO2 08/27/16 13:32 65 88/54 08/27/16 13:25 100/ 08/27/16 13:02 60 99/55 08/27/16 13:00 37.0 60 100/57 08/27/16 08:15 36.5 70 20 102/67 91 Room Air 08/27/16 08:00 Room Air 08/27/16 00:00 Room Air 08/26/16 23:40 36.6 66 18 93/58 90 Room Air 08/26/16 16:00 91 Room Air 08/26/16 15:50 36.2 67 16 111/77 90 Physical Exam General Appearance: no apparent distress Eyes: normal inspection, EOMI ENT: normal ENT inspection, hearing grossly normal Neck: supple Respiratory/Chest: chest non-tender, lungs clear, normal breath sounds, no respiratory distress, no accessory muscle use Cardiovascular: regular rate, rhythm, no edema, no gallop, no JVD, no murmur Abdomen: normal bowel sounds, non tender, soft, no organomegaly, no pulsatile mass Extremities: normal range of motion, non-tender, normal inspection, no pedal edema, no calf tenderness, + pertinent finding (left BKA) Neurologic/Psychiatric: profiler 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-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 nml as tested, no motor/sensory deficits, alert, normal mood/affect, oriented x 3 Skin: normal color, warm/dry, no rash Laboratory Results Last 24 Hours Test 08/26/16 16:26 08/26/16 19:29 08/27/16 07:39 08/27/16 08:15 Bedside Glucose 88 mg/dl 93 mg/dl 127 mg/dl Sodium Level 134 mmol/L Potassium Level 5.0 mmol/L Chloride Level 100 mmol/L Carbon Dioxide Level 17 mmol/L Anion Gap 17.0 mmol/L Blood Urea Nitrogen 118 mg/dl Creatinine 9.50 mg/dl Est Creatinine Clear Calc Drug Dose 8.8 ml/min Estimated GFR () 6.3 Estimated GFR (Non- 5.4 BUN/Creatinine Ratio 12.6 Random Glucose 145 mg/dl Calcium Level 9.0 mg/dl Test 08/27/16 11:32 Bedside Glucose 103 mg/dl Assessment and Plan 60-year-old male with past medical history of ESRD on hemodialysis, Anemia of chronic disease Chronic diastolic heart failure, diabetes type 2, hypertension, CAD with history of NSTEMI, hyperlipidemia, hypothyroidism, migraine headache, hx CVA with mild expressive deficits, neuropathy, hx DVT, glaucoma, dialysis- related hypotension, possible history of ventricular arrhythmia. He was living by himself but recently was unable to safely manage living and depending on himself. He was brought to ED for evaluation and treatment followed by appropriate disposition No acute changes in care awaiting placement - Major depression stable is on lexpro, Psych consult appreciated no med changes recommended -ESRD on HD continue dialysis MWF history of dialysis-related hypotension, will continue Florinef -History of DVT apixaban 5 mg daily -Diabetes II ssi -Anemia of chronic disease nephrology is managing -Diastolic chronic heart failure. is euvolemic / not in acute exacerbation -Hypothyroidism clinically stable Synthroid 100 mcg daily DVT is apixiban CODE STATUS: DNR Continued [facility] stay due to: home environment unsafe for pt Discharge planning: awaiting placement by social scientist Continued [facility] stay due to: home environment unsafe for pt Discharge planning: uncertain
[2016-08-27] MEDS: LATANOPROST 0.005% OP SOLN 2.5 ML BTL OPL SCH (20:21)
[2016-08-27] MEDS: GABAPENTIN 400 MG CAP PO SCH (20:22)
[2016-08-28 00:23] VITALS: BP 78/49; PULSE 65; TEMP 37; O2SAT 92
[2016-08-28] MEDS: LEVOTHYROXINE 100 MCG TAB PO SCH (06:33)
[2016-08-28 07:32] VITALS: BP 70/41; PULSE 63; TEMP 36.5; O2SAT 91
[2016-08-28 08:23] LABS: BASO % 0.2 %; BASO ABS # 0.01 K/uL (0-0.2); COMPLETE YES; EOS % 3.8 %; HEMATOCRIT 31.1 % (42-52); IG% 0.2 %; LYMPH % 27.2 %; LYMPH ABS # 1.16 K/uL (1.2-3.4); MEAN CELL VOLUME 90.9 fL (80-100); MEAN CORPUSCULAR HEMOGLOBIN 28.7 pg (25-34); MEAN CORPUSCULAR HGB CONC 31.5 g/dl (32-36); MEAN PLATELET VOLUME 9.7 fL (7.4-10.4); MONO % 11.3 %; NEUT % 57.3 %; PLATELET COUNT 220 K/uL (130-400); RED BLOOD COUNT 3.42 M/uL (4.7-6.1); WHITE BLOOD COUNT 4.26 K/uL (4.8-10.8)
[2016-08-28] MEDS: CALCIUM ACETATE 667MG GELCAP PO SCH ×3 (08:50→17:03)
[2016-08-28] MEDS: SUCRALFATE 1 GM/10 ML UDC PO SCH ×4 (08:50→20:07)
[2016-08-28] MEDS: NEPHROCAPS PO SCH ×2 (08:51→20:08)
[2016-08-28] MEDS: GABAPENTIN 400 MG CAP PO SCH ×3 (08:51→20:11)
[2016-08-28] MEDS: ESCITALOPRAM OXALATE 10 MG TAB PO SCH (08:52)
[2016-08-28] MEDS: FINASTERIDE 5 MG TAB PO SCH (08:53)
[2016-08-28] MEDS: FLUDROCORTISONE ACETATE 0.1 MG TAB PO SCH (08:53)
[2016-08-28] MEDS: APIXABAN 2.5 MG TAB PO SCH ×2 (08:54→20:10)
[2016-08-28] MEDS: PANTOprazole SOD 40 MG TAB PO SCH (08:54)
[2016-08-28] MEDS: METRONIDAZOLE 0.75% TOPICAL GEL 45 GM TUBE TOP SCH (08:54)
[2016-08-28] MEDS: MIDODRINE 2.5 MG TAB PO SCH ×2 (08:54→17:04)
[2016-08-28 09:11] LABS: ALB/GLOB RATIO 0.6 (0.9-2); BUN/CREATININE RATIO 11.9 (10-20); CALCIUM 8.6 mg/dl (8.5-10.1); CREATININE 7.4 mg/dl (0.60-1.40); MAGNESIUM 2.6 mg/dl (1.8-2.4); PHOSPHORUS 4.5 mg/dl (2.5-4.9); POTASSIUM 4.4 mmol/L (3.5-5.1)
[2016-08-28] MEDS: LACTOBACILLUS ACIDOPHILUS (FLORANEX) TAB PO SCH ×2 (11:27→20:08)
--- NOTE | 2016-08-28 14:44 | Nephrology Progress Note ---
Nephrology Progress Note Date of Service: Aug 28, 2016. Subjective 60 yo male with ESRD awaiting placement at [facility]. Patient states that he is doing well today. Denies any chest pain, nausea, cramping, or diarrhea. states that appetite is good. continues to get dialysis in hospital . Objective Date Time Temp Pulse Resp B/P Pulse Ox O2 Delivery O2 Flow Rate FiO2 08/28/16 08:00 Room Air 08/28/16 07:32 36.5 63 18 70/41 91 Room Air 08/28/16 00:23 37.0 65 20 78/49 92 Room Air 08/28/16 00:00 Room Air 08/27/16 17:48 88/54 92 Room Air 08/27/16 16:20 36.7 68 20 78/50 90 Room Air 79/53 08/27/16 16:00 91 Room Air 08/27/16 15:35 71 75/49 08/27/16 15:00 72 81/47 Physical Exam: Physical Exam: General-aaox3 Eyes-no scleral icterus ENT-mmm Neck-supple Lungs-clear Heart-regular Abdomen-bs+ s/nt/nd Extremities-left aka Neuro-nonfocal Current Inpatient Medications Medications (Trade) Dose Ordered Sig/Rigoberto Route Start Time Stop Time Status Last Admin Dose Admin Bisacodyl (Dulcolax Supp) 10 mg DAILY PRN [place] 08/17/16 21:00 09/16/16 20:59 Calcium Acetate (Phoslo Cap) 2,001 mg TIDM PO 08/18/16 08:00 09/17/16 07:59 08/28/16 11:28 2,001 MG Escitalopram Oxalate (Lexapro Tab) 10 mg DAILY PO 08/18/16 09:00 09/17/16 08:59 08/28/16 08:52 10 MG Finasteride (Proscar Tab) 5 mg DAILY PO 08/18/16 09:00 09/17/16 08:59 08/28/16 08:53 5 MG Fludrocortisone Acetate (Florinef Tab) 0.1 mg DAILY PO 08/18/16 09:00 09/17/16 08:59 08/28/16 08:53 0.1 MG Gabapentin (Neurontin Cap) 400 mg MoWeFr@2100 PO 08/17/16 21:00 09/16/16 20:59 08/27/16 20:22 400 MG Gabapentin (Neurontin Cap) 400 mg SuTuThSa@0900,1400,2100 PO 08/18/16 09:00 09/17/16 08:59 08/28/16 14:36 400 MG Lactobacillus Acidophilus (Floranex Tab) 4 tab BID PO 08/17/16 21:00 09/16/16 20:59 08/28/16 11:27 4 TAB Latanoprost (Xalatan Oph Soln) 1 drops HS OPL 08/17/16 21:00 09/16/16 20:59 08/27/16 20:21 1 DROPS Levothyroxine Sodium (Synthroid Tab) 100 mcg DAILYBB PO 08/18/16 06:30 09/17/16 08:59 08/28/16 06:33 100 MCG Midodrine (Proamatine Tab) 2.5 mg BID17 PO 08/17/16 21:00 09/16/16 20:59 08/28/16 08:54 2.5 MG Oxycodone/ Acetaminophen (Percocet 5-325mg Tab) 1 tab Q4H PRN PO 08/17/16 21:00 08/31/16 20:59 Sucralfate (Carafate Susp) 1 gm QID PO 08/17/16 21:00 09/16/16 20:59 08/25/16 08:18 1 GM Apixaban (Eliquis Tab) 5 mg Q12 PO 08/17/16 21:00 09/16/16 20:59 08/28/16 08:54 5 MG Vitamin B Complex/ Vit C/Folic Acid (Nephrocaps) 1 cap BID PO 08/17/16 21:00 09/16/16 20:59 08/28/16 08:51 1 CAP Metronidazole HCl (Metrogel Topical Gel) 1 appln DAILY TOP 08/18/16 09:00 09/17/16 08:59 08/28/16 08:54 1 APPLN Pantoprazole Sodium (Protonix Tab) 40 mg DAILY PO 08/18/16 09:00 09/17/16 08:59 08/28/16 08:54 40 MG Acetaminophen (Tylenol Tab) 650 mg Q4H PRN PO 08/17/16 21:15 09/16/16 21:14 08/24/16 06:08 650 MG Al Hydrox/Mg Hydrox/Simethicone (Maalox Max Susp) 15 ml Q4H PRN PO 08/17/16 21:15 09/16/16 21:14 Magnesium Hydroxide (Milk Of Magnesia Susp) 30 ml Q6H PRN PO 08/17/16 21:15 09/16/16 21:14 08/25/16 09:25 30 ML Polyethylene (Miralax Powder Packet) 17 gm DAILY PRN PO 08/17/16 21:15 09/16/16 21:14 08/25/16 14:05 17 GM Ondansetron HCl (Zofran Inj) 4 mg Q6H PRN IV 08/17/16 21:15 09/16/16 21:14 Last 24 Hours Test 08/27/16 16:51 08/27/16 20:23 08/28/16 07:45 08/28/16 08:10 Bedside Glucose 86 mg/dl 119 mg/dl 82 mg/dl White Blood Count 4.26 K/uL Red Blood Count 3.42 M/uL Hemoglobin 9.8 g/dL Hematocrit 31.1 % Mean Corpuscular Volume 90.9 fL Mean Corpuscular Hemoglobin 28.7 pg Mean Corpuscular Hemoglobin Concent 31.5 g/dl Platelet Count 220 K/uL Mean Platelet Volume 9.7 fL Neutrophils (%) (Auto) 57.3 % Lymphocytes (%) (Auto) 27.2 % Monocytes (%) (Auto) 11.3 % Eosinophils (%) (Auto) 3.8 % Basophils (%) (Auto) 0.2 % Neutrophils # (Auto) 2.44 K/uL Lymphocytes # (Auto) 1.16 K/uL Monocytes # (Auto) 0.48 K/uL Eosinophils # (Auto) 0.16 K/uL Basophils # (Auto) 0.01 K/uL RDW Standard Deviation 54.9 fL RDW Coefficient of Variation 16.6 % Immature Granulocyte % (Auto) 0.2 % Immature Granulocyte # (Auto) 0.01 K/uL Sodium Level 136 mmol/L Potassium Level 4.4 mmol/L Chloride Level 101 mmol/L Carbon Dioxide Level 21 mmol/L Anion Gap 14.0 mmol/L Blood Urea Nitrogen 89 mg/dl Creatinine 7.40 mg/dl Est Creatinine Clear Calc Drug Dose 11.3 ml/min Estimated GFR () 8.5 Estimated GFR (Non- 7.3 BUN/Creatinine Ratio 11.9 Random Glucose 90 mg/dl Calcium Level 8.6 mg/dl Phosphorus Level 4.5 mg/dl Magnesium Level 2.6 mg/dl Total Bilirubin 0.4 mg/dl Aspartate Amino Transf (AST/SGOT) 19 U/L Alanine Aminotransferase (ALT/SGPT) 28 U/L Alkaline Phosphatase 148 U/L Total Protein 7.5 gm/dl Albumin 2.9 gm/dl Globulin 4.6 gm/dl Albumin/Globulin Ratio 0.6 Test 08/28/16 11:42 Bedside Glucose 86 mg/dl Other Studies: 08/26/16 08/27/16 08/28/16 08:00 08:00 08:00 Intake Total 600 ml 575 ml 490 ml Balance 600 ml 575 ml 490 ml Assessment & Plan ESRD-will continue to dialyze every m/w/f or as clinical condition dictates. potassium is adequate at 4.4. volume status appropriate. no need for dialysis today. on 2k bath. asymptomatic hypotension during dialysis-chronic. on midodrine and florinef to help with bp. Anemia of renal failure-hg levels are stable. hg of 9.8 at last check. will continue to follow and continue procrit with dialysis. LILA-continues on phosphate binders. will check phos levels intermittently. This patient was seen and treated with direct collaboration with Dr. Buchanan. Thank you for the opportunity to participate in this patient's care. Appreciate the Consult. ATTENDING NOTE: I performed a history and physical examination of the patient, including specifically on history- no complaints, on physical exam-decreased breath sounds at bases, no edema, and my impression and plan are ESRD-plan on dialysis tomorrow. no indication for dialysis today. I have discussed the patient's management with Katie Dodge PA-C, Please refer to above note for the documented findings and plan of care. Marky Buchanan DO
[2016-08-28 15:07] VITALS: BP 95/58; PULSE 61; TEMP 36.7; O2SAT 92
--- NOTE | 2016-08-28 17:09 | Progress Note ---
Subjective Date of Service: Aug 28, 2016. Subjective Pt evaluation today including: conversation w/ patient, physical exam, chart review, lab review, review of inpatient medication list Problem List Medical Problems: (1) Abdominal pain Status: Acute (2) C. difficile colitis Status: Acute (3) Caregiver has difficulty performing caretaking Status: Acute (4) Colitis Status: Acute (5) Dehydration Status: Acute (6) Failure to thrive Status: Acute (7) Fever Status: Acute (8) Infection associated with peritoneal dialysis catheter Status: Acute (9) Lactic acidosis Status: Acute (10) Periumbilical abdominal pain Status: Acute (11) Pneumonia involving right lung Status: Acute (12) Sepsis Status: Acute (13) Septic shock Status: Acute (14) Vomiting Status: Acute (15) Weakness Status: Acute Review of Systems Constitutional: No chills, No fatigue, No fever, No problem reported, No see HPI, No sweats, No weakness, No weight loss Eyes: No diplopia, No discharge, No eye pain, No problem reported, No redness, No see HPI, No worsening of vision ENT: No dental problems, No hearing loss, No nasal symptoms, No problem reported, No see HPI, No sore throat, No tinnitus, No trouble swallowing, No unusual epistaxis Respiratory: No cough, No dyspnea at rest, No dyspnea on exertion, No hemoptysis, No problem reported, No see HPI, No shortness of breath, No sputum, No wheezing Cardiac: No PND, No chest pain, No claudication, No edema, No orthopnea, No palpitations, No problem reported, No see HPI Breast: No breast lump, No breast pain, No change in shape, No nipple discharge , No problem reported, No see HPI Abdomen: No GI bleeding, No constipation, No diarrhea, No nausea, No pain, No problem reported, No see HPI, No vomiting Musculoskeletal: No calf pain, No joint pain, No muscle pain, No problem reported, No see HPI, No swelling Male : No dysuria, No hematuria, No incontinence, No nocturia more than once/ night, No problem reported, No see HPI, No sexual dysfunction, No slowing stream , No urinary frequency Neurologic: No balance problems, No memory loss, No numbness/tingling, No paralysis, No problem reported, No see HPI, No vertigo, No weakness Psychiatric: No anhedonism, No anxiety, No depression symptoms, No insomnia, No problem reported, No see HPI, No substance abuse Heme: No abnormal bleeding/bruising, No clotting problems, No night sweats, No problem reported, No see HPI, No swollen lymph nodes Endo: No excessive thirst, No excessive urination, No fatigue, No problem reported, No see HPI Skin: No bleeding, No color change, No itch, No new/changing skin lesions, No problem reported, No rash, No see HPI Medications Current Inpatient Medications Medications (Trade) Dose Ordered Sig/Rigoberto Route Start Time Stop Time Status Last Admin Dose Admin Bisacodyl (Dulcolax Supp) 10 mg DAILY PRN [place] 08/17/16 21:00 09/16/16 20:59 Calcium Acetate (Phoslo Cap) 2,001 mg TIDM PO 08/18/16 08:00 09/17/16 07:59 08/28/16 11:28 2,001 MG Escitalopram Oxalate (Lexapro Tab) 10 mg DAILY PO 08/18/16 09:00 09/17/16 08:59 08/28/16 08:52 10 MG Finasteride (Proscar Tab) 5 mg DAILY PO 08/18/16 09:00 09/17/16 08:59 08/28/16 08:53 5 MG Fludrocortisone Acetate (Florinef Tab) 0.1 mg DAILY PO 08/18/16 09:00 09/17/16 08:59 08/28/16 08:53 0.1 MG Gabapentin (Neurontin Cap) 400 mg MoWeFr@2100 PO 08/17/16 21:00 09/16/16 20:59 08/27/16 20:22 400 MG Gabapentin (Neurontin Cap) 400 mg SuTuThSa@0900,1400,2100 PO 08/18/16 09:00 09/17/16 08:59 08/28/16 14:36 400 MG Lactobacillus Acidophilus (Floranex Tab) 4 tab BID PO 08/17/16 21:00 09/16/16 20:59 08/28/16 11:27 4 TAB Latanoprost (Xalatan Oph Soln) 1 drops HS OPL 08/17/16 21:00 09/16/16 20:59 08/27/16 20:21 1 DROPS Levothyroxine Sodium (Synthroid Tab) 100 mcg DAILYBB PO 08/18/16 06:30 09/17/16 08:59 08/28/16 06:33 100 MCG Midodrine (Proamatine Tab) 2.5 mg BID17 PO 08/17/16 21:00 09/16/16 20:59 08/28/16 08:54 2.5 MG Oxycodone/ Acetaminophen (Percocet 5-325mg Tab) 1 tab Q4H PRN PO 08/17/16 21:00 08/31/16 20:59 Sucralfate (Carafate Susp) 1 gm QID PO 08/17/16 21:00 09/16/16 20:59 08/25/16 08:18 1 GM Apixaban (Eliquis Tab) 5 mg Q12 PO 08/17/16 21:00 09/16/16 20:59 08/28/16 08:54 5 MG Vitamin B Complex/ Vit C/Folic Acid (Nephrocaps) 1 cap BID PO 08/17/16 21:00 09/16/16 20:59 08/28/16 08:51 1 CAP Metronidazole HCl (Metrogel Topical Gel) 1 appln DAILY TOP 08/18/16 09:00 09/17/16 08:59 08/28/16 08:54 1 APPLN Pantoprazole Sodium (Protonix Tab) 40 mg DAILY PO 08/18/16 09:00 09/17/16 08:59 08/28/16 08:54 40 MG Acetaminophen (Tylenol Tab) 650 mg Q4H PRN PO 08/17/16 21:15 09/16/16 21:14 08/24/16 06:08 650 MG Al Hydrox/Mg Hydrox/Simethicone (Maalox Max Susp) 15 ml Q4H PRN PO 08/17/16 21:15 09/16/16 21:14 Magnesium Hydroxide (Milk Of Magnesia Susp) 30 ml Q6H PRN PO 08/17/16 21:15 09/16/16 21:14 08/25/16 09:25 30 ML Polyethylene (Miralax Powder Packet) 17 gm DAILY PRN PO 08/17/16 21:15 09/16/16 21:14 08/25/16 14:05 17 GM Ondansetron HCl (Zofran Inj) 4 mg Q6H PRN IV 08/17/16 21:15 09/16/16 21:14 Epoetin Juan A (Procrit Inj) 10,000 units TODAY@0800 IV. 08/29/16 08:00 08/29/16 18:00 Objective Vital Signs Date Time Temp Pulse Resp B/P Pulse Ox O2 Delivery O2 Flow Rate FiO2 08/28/16 15:07 36.7 61 18 95/58 92 Room Air 08/28/16 08:00 Room Air 08/28/16 07:32 36.5 63 18 70/41 91 Room Air 08/28/16 00:23 37.0 65 20 78/49 92 Room Air 08/28/16 00:00 Room Air 08/27/16 17:48 88/54 92 Room Air Physical Exam General Appearance: no apparent distress Eyes: normal inspection, EOMI ENT: normal ENT inspection, hearing grossly normal Neck: supple Respiratory/Chest: chest non-tender, lungs clear, normal breath sounds, no respiratory distress, no accessory muscle use Cardiovascular: regular rate, rhythm, no edema, no gallop, no JVD, no murmur Abdomen: normal bowel sounds, non tender, soft, no organomegaly Extremities: normal range of motion, non-tender, normal inspection, no pedal edema, no calf tenderness Neurologic/Psychiatric: 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, no motor/sensory deficits, alert, normal mood/affect, oriented x 3 Skin: normal color, warm/dry, no rash Laboratory Results Last 24 Hours Test 08/27/16 20:23 08/28/16 07:45 08/28/16 08:10 08/28/16 11:42 Bedside Glucose 119 mg/dl 82 mg/dl 86 mg/dl White Blood Count 4.26 K/uL Red Blood Count 3.42 M/uL Hemoglobin 9.8 g/dL Hematocrit 31.1 % Mean Corpuscular Volume 90.9 fL Mean Corpuscular Hemoglobin 28.7 pg Mean Corpuscular Hemoglobin Concent 31.5 g/dl Platelet Count 220 K/uL Mean Platelet Volume 9.7 fL Neutrophils (%) (Auto) 57.3 % Lymphocytes (%) (Auto) 27.2 % Monocytes (%) (Auto) 11.3 % Eosinophils (%) (Auto) 3.8 % Basophils (%) (Auto) 0.2 % Neutrophils # (Auto) 2.44 K/uL Lymphocytes # (Auto) 1.16 K/uL Monocytes # (Auto) 0.48 K/uL Eosinophils # (Auto) 0.16 K/uL Basophils # (Auto) 0.01 K/uL RDW Standard Deviation 54.9 fL RDW Coefficient of Variation 16.6 % Immature Granulocyte % (Auto) 0.2 % Immature Granulocyte # (Auto) 0.01 K/uL Sodium Level 136 mmol/L Potassium Level 4.4 mmol/L Chloride Level 101 mmol/L Carbon Dioxide Level 21 mmol/L Anion Gap 14.0 mmol/L Blood Urea Nitrogen 89 mg/dl Creatinine 7.40 mg/dl Est Creatinine Clear Calc Drug Dose 11.3 ml/min Estimated GFR () 8.5 Estimated GFR (Non- 7.3 BUN/Creatinine Ratio 11.9 Random Glucose 90 mg/dl Calcium Level 8.6 mg/dl Phosphorus Level 4.5 mg/dl Magnesium Level 2.6 mg/dl Total Bilirubin 0.4 mg/dl Aspartate Amino Transf (AST/SGOT) 19 U/L Alanine Aminotransferase (ALT/SGPT) 28 U/L Alkaline Phosphatase 148 U/L Total Protein 7.5 gm/dl Albumin 2.9 gm/dl Globulin 4.6 gm/dl Albumin/Globulin Ratio 0.6 Test 08/28/16 16:29 Bedside Glucose 101 mg/dl Assessment and Plan 60-year-old male with past medical history of ESRD on hemodialysis, Anemia of chronic disease Chronic diastolic heart failure, diabetes type 2, hypertension, CAD with history of NSTEMI, hyperlipidemia, hypothyroidism, migraine headache, hx CVA with mild expressive deficits, neuropathy, hx DVT, glaucoma, dialysis- related hypotension, possible history of ventricular arrhythmia. He was living by himself but recently was unable to safely manage living and depending on himself. He was brought to ED for evaluation and treatment followed by appropriate disposition No acute changes in care awaiting placement, patient has no new complains today - Major depression stable is on lexpro, Psych consult appreciated no med changes recommended -ESRD on HD continue dialysis MWF history of dialysis-related hypotension, will continue Florinef -History of DVT apixaban 5 mg daily -Diabetes II ssi -Anemia of chronic disease nephrology is managing -Diastolic chronic heart failure. is euvolemic / not in acute exacerbation -Hypothyroidism clinically stable Synthroid 100 mcg daily DVT is apixiban CODE STATUS: DNR Continued [facility] stay due to: home environment unsafe for pt Discharge planning: awaiting placement by psychiatric social worker supervisor Continued [facility] stay due to: home environment unsafe for pt Discharge planning: uncertain
[2016-08-28] MEDS: LATANOPROST 0.005% OP SOLN 2.5 ML BTL OPL SCH (20:11)
[2016-08-28 23:10] VITALS: BP 98/63; PULSE 59; TEMP 36.7; O2SAT 92
[2016-08-29] VITALS (19 sets, daily range): BP systolic 85–104; BP diastolic 47–61; PULSE 61–70; TEMP 36.3–37; O2SAT 90–92
[2016-08-29] MEDS: LEVOTHYROXINE 100 MCG TAB PO SCH (04:44)
[2016-08-29] MEDS: SUCRALFATE 1 GM/10 ML UDC PO SCH ×4 (07:33→16:54)
[2016-08-29] MEDS: CALCIUM ACETATE 667MG GELCAP PO SCH ×3 (07:33→16:56)
[2016-08-29] MEDS: PANTOprazole SOD 40 MG TAB PO SCH (07:33)
[2016-08-29] MEDS: LACTOBACILLUS ACIDOPHILUS (FLORANEX) TAB PO SCH (07:34)
[2016-08-29 07:58] LABS: BASO % 0.4 %; BASO ABS # 0.02 K/uL (0-0.2); COMPLETE YES; EOS % 5.9 %; HEMATOCRIT 31.7 % (42-52); IG% 0.2 %; LYMPH % 29.8 %; LYMPH ABS # 1.42 K/uL (1.2-3.4); MEAN CELL VOLUME 91.6 fL (80-100); MEAN CORPUSCULAR HEMOGLOBIN 29.5 pg (25-34); MEAN CORPUSCULAR HGB CONC 32.2 g/dl (32-36); MEAN PLATELET VOLUME 10.5 fL (7.4-10.4); MONO % 10.1 %; NEUT % 53.6 %; PLATELET COUNT 243 K/uL (130-400); RED BLOOD COUNT 3.46 M/uL (4.7-6.1); WHITE BLOOD COUNT 4.77 K/uL (4.8-10.8)
[2016-08-29] MEDS ORDERED: EPOETIN ALFA 10,000 UNITS/ML VIAL IV. SCH (08:00)
[2016-08-29 08:32] LABS: BUN/CREATININE RATIO 11.4 (10-20); CREATININE 9.1 mg/dl (0.60-1.40); POTASSIUM 4.9 mmol/L (3.5-5.1)
[2016-08-29] MEDS: MIDODRINE 2.5 MG TAB PO SCH ×2 (09:00→17:00)
[2016-08-29] MEDS: ESCITALOPRAM OXALATE 10 MG TAB PO SCH (09:00)
[2016-08-29] MEDS: APIXABAN 2.5 MG TAB PO SCH (09:00)
[2016-08-29] MEDS: NEPHROCAPS PO SCH (09:00)
[2016-08-29] MEDS ORDERED: OXYC-57 PO (14:32)
--- NOTE | 2016-08-29 14:32 | Discharge Instructions ---
Discharge Instructions Admission Admission Date: Aug 17, 2016 at 21:08 Admission Diagnosis: Esrd, Social Disinhibition. Discharge Care Plan - Problem: Medical Problems: (1) Failure to thrive Care Plan - Goal(s): Improve function Care Plan - Instructions: Recommended Home Diet: Renal, Type 2 Diabetes VTE Core Measure Inpt VTE Proph given/why not?: Other Anticoagulation [place] Recommendations: Call your doctor if: * Temperature above 101 degrees * Pain not relieved by pain medicine ordered * There is increased drainage or redness from any incision * You have any unanswered questions or concerns. Your Doctors Instructions noted above were prepared by provider Saima Nicole.
[2016-08-29] MEDS ORDERED: MIDO2.5T PO (14:41)
--- NOTE | 2016-08-29 14:48 | Discharge Summary ---
Discharge Summary Date of Service Aug 29, 2016. Discharge Summary Admission Date: Aug 17, 2016 at 21:08 Discharge Date: Aug 29, 2016 Discharge Disposition: custodial facility Principal Diagnosis: Hypotension/adrenal insufficiency Problems/Secondary Diagnoses: 1. Anemia of chronic disease with baseline hemoglobin 8.5 to 9. 2. Depression. 3. CHF, grade 1 diastolic with a preserved ejection fraction. 4. Morbid obesity. 5. Type 2 diabetes. 6. Hypertension. 7. Coronary artery disease with history of non-ST elevation myocardial infarction. 8. Hyperlipidemia. 9. Hypothyroidism. 10. History of migraine headaches. 11. History of CVA with mild expressive deficits. 12. Neuropathy. 13. Peripheral vascular disease with resultant left BKA and a great toe amputation. 14. History of DVT. 15. Glaucoma. 16. Dialysis-related hypotension. 17. Possible history of ventricular arrhythmias. Medication Reconciliation Changed Medications: Midodrine Hcl (Midodrine Hcl) 2.5 Mg Tab 2.5 MG PO TID for 30 Days, #90 TAB 1 Refill (Changed from: BID; Refills: ) take after dialysis in dialysis days Continued Medications: Acetaminophen Tab (Tylenol) 325 Mg Tab 325-650 MG PO Q6H PRN for Pain or Fever Apixaban (Eliquis) 5 Mg Tab 5 MG PO Q12 B-Complex W/ C & Folic Acid (Nephronex) 1 Liq Liq 5 ML PO BID Bisacodyl (Dulcolax) 10 Mg Sup 1 SUPP WI DAILY PRN for Constipation, SUP Calcium Acetate (Phoslo 667 Mg) 667 Mg Cap 2001 MG PO TIDM TAKE 3 CAPSULES THREE TIMES ZAYAS WITH MEALS Escitalopram (Lexapro) 10 Mg Tab 10 MG PO DAILY Finasteride (Proscar) 5 Mg Tab 5 MG PO DAILY, TAB Fludrocortisone Acetate (Florinef) 0.1 Mg Tab 0.1 MG PO DAILY, TAB Gabapentin (Neurontin) 400 Mg Cap 400 MG PO UD, CAP TAKE THIS MEDICATION THREE TIMES A DAY EVERY SATURDAY,SATURDAY,SATURDAY AND SATURDAY Gabapentin (Gabapentin) 400 Mg Cap 400 MG PO UD TAKE 400 MG AT BEDTIME ONLY ON SATURDAY,SATURDAY AND SATURDAY Lactobacillus Acidophilus (Lactinex) Tab 1 TAB PO BID, TAB Latanoprost (Xalatan 0.005% Oph Katya) 0.005 % Katya 1 DROP OPL HS, ML Levothyroxine Sodium (Synthroid) 100 Mcg Tab 100 MCG PO DAILY TAKE THIS MEDICATION ON AN EMPTY STOMACH AND 30 MINUTES BEFORE BREAKFAST OR ANY OTHER MEDICATIONS Metronidazole Hcl (Metronidazole) 135 Appln/45 Gm Cr 1 APPLN TOP DAILY for 30 Days Omeprazole (Prilosec) 20 Mg Capcr 20 MG PO DAILY Oxycodone/Acetaminophen 5MG/325MG (Percocet 5MG/325MG) Tab 1 TABLET PO Q4H PRN for Pain for 30 Days, #30 TAB (This prescription has been renewed) Polyethylene Glycol 3350 (Bulk (Polyethylene Glycol 3350) 1 Pow Pow 17 GM PO DAILY PRN for Constipation, GM Sodium Phosphate/Biphosphate (Fleet Enema) Yulisa 1 EA WI UD PRN for Constipation, BTL Sucralfate (Sucralfate) 1 Gm/10 Ml Arianna 1 GM PO QID, ML Discontinued Medications: Vancomycin HCl (Vancomycin HCl) 1,000 Mg/1000 Ml Soln 1000 MG IV UD PRN for Random Level Less Than 17 TO BE GIVEN WITH DIALYSIS IF RANDOM LEVEL IS LESS THAN 17 Discharge Exam Review of Systems: Constitutional: + fatigue, No chills, No fever, No problem reported, No sweats, No weakness, No weight loss Eyes: No diplopia, No discharge, No eye pain, No problem reported, No redness, No worsening of vision ENT: No dental problems, No hearing loss, No nasal symptoms, No problem reported, No sore throat, No tinnitus, No trouble swallowing, No unusual epistaxis Respiratory: No cough, No dyspnea at rest, No dyspnea on exertion, No hemoptysis, No problem reported, No shortness of breath, No sputum, No wheezing Cardiovascular: No PND, No chest pain, No claudication, No edema, No orthopnea, No palpitations, No problem reported Abdomen: No GI bleeding, No constipation, No diarrhea, No nausea, No pain, No problem reported, No vomiting Musculoskeletal: No calf pain, No joint pain, No muscle pain, No problem reported, No swelling Neurologic: No balance problems, No memory loss, No numbness/tingling, No paralysis, No problem reported, No vertigo, No weakness Psychiatric: No anhedonism, No anxiety, No depression symptoms, No insomnia , No problem reported, No substance abuse Endocrine: No excessive thirst, No excessive urination, No fatigue, No problem reported Hematologic / Lymphatic: No abnormal bleeding/bruising, No clotting problems , No night sweats, No problem reported, No swollen lymph nodes Integumentary: No bleeding, No color change, No itch, No new/changing skin lesions, No problem reported, No rash Physical Exam: General Appearance: WD/WN, no apparent distress Eyes: normal inspection, EOMI ENT: normal ENT inspection, hearing grossly normal Neck: supple Respiratory/Chest: chest non-tender, lungs clear, normal breath sounds, no respiratory distress, no accessory muscle use Cardiovascular: regular rate, rhythm, no edema, no gallop, no JVD, no murmur , normal peripheral pulses Abdomen / GI: normal bowel sounds, non tender, soft, no organomegaly, no pulsatile mass, normal rectal exam Extremities: normal inspection, no calf tenderness, + pertinent finding ( left lower Ext BKA) Neurologic/Psychiatric: 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 He was living by himself but recently was unable to safely manage living and depending on himself. He was brought to ED for evaluation and treatment followed by appropriate disposition. His blood pressure was found to run low. he was started as an out patient on Midodrine and Florinef in the day of discharge midodrin dose was increased to TID and instructed to take after dialysis in the days of dialysis. he also was found to have, Major depression he was continued on lexpro, Psych consult appreciated no med changes recommended for his ESRD on HD he continued dialysis MWF and due to history of dialysis-related hypotension, continued Midodrine and Florinef for his DVT he continued apixaban 5 mg daily for his Hypothyroidism he was found to be clinically stable Synthroid 100 mcg daily casework supervisor has been working on his case until finally got a bed in [facility], his midodrine was switched to TID to overcome his low BP. Total Time Spent: Greater than 30 minutes This includes examination of the patient, discharge planning, medication reconciliation, and communication with other providers. Discharge Instructions Please refer to the electronic Patient Visit Report (Discharge Instructions) for additional information.
[2016-08-29] MEDS: METRONIDAZOLE 0.75% TOPICAL GEL 45 GM TUBE TOP SCH (16:56)
[2016-08-29] MEDS: FLUDROCORTISONE ACETATE 0.1 MG TAB PO SCH (16:57)
[2016-08-29] MEDS: FINASTERIDE 5 MG TAB PO SCH (16:57)
--- NOTE | 2016-08-29 19:23 | Nephrology Progress Note ---
Nephrology Progress Note Date of Service: Aug 29, 2016. Subjective 60 yo male admitted for placement. patient is comfortable. awaiting placement. getting dialysis m-w-f. no complaints. Objective Date Time Temp Pulse Resp B/P Pulse Ox O2 Delivery O2 Flow Rate FiO2 08/29/16 17:25 36.7 63 93/57 08/29/16 17:24 63 93/57 08/29/16 17:15 69 94/61 08/29/16 17:00 65 88/59 08/29/16 16:45 69 91/53 08/29/16 16:30 66 87/57 08/29/16 16:15 66 88/55 08/29/16 16:00 66 89/57 08/29/16 15:47 36.7 70 16 87/50 90 Room Air 08/29/16 15:45 65 85/56 08/29/16 15:30 67 89/52 08/29/16 15:15 67 95/55 08/29/16 14:59 70 87/50 08/29/16 14:45 64 96/55 08/29/16 14:30 61 104/47 08/29/16 14:23 62 93/51 08/29/16 14:15 37.0 62 91/54 08/29/16 13:37 36.3 61 18 92 Room Air 08/29/16 07:41 36.3 61 18 86/53 92 Room Air 08/29/16 07:30 92 Room Air 08/29/16 00:00 Room Air 08/28/16 23:10 36.7 59 20 98/63 92 Room Air Physical Exam: General-aaox3 Eyes-no scleral icterus ENT-mmm Neck-supple Lungs-cta anteriorly Heart-rrr Abdomen-bs+ s/nt/nd Extremities-left aka Neuro-nonfocal Current Inpatient Medications Medications (Trade) Dose Ordered Sig/Rigoberto Route Start Time Stop Time Status Last Admin Dose Admin Bisacodyl (Dulcolax Supp) 10 mg DAILY PRN [place] 08/17/16 21:00 09/16/16 20:59 Calcium Acetate (Phoslo Cap) 2,001 mg TIDM PO 08/18/16 08:00 09/17/16 07:59 08/29/16 16:56 2,001 MG Escitalopram Oxalate (Lexapro Tab) 10 mg DAILY PO 08/18/16 09:00 09/17/16 08:59 08/28/16 08:52 10 MG Finasteride (Proscar Tab) 5 mg DAILY PO 08/18/16 09:00 09/17/16 08:59 08/29/16 16:57 5 MG Fludrocortisone Acetate (Florinef Tab) 0.1 mg DAILY PO 08/18/16 09:00 09/17/16 08:59 08/29/16 16:57 0.1 MG Gabapentin (Neurontin Cap) 400 mg MoWeFr@2100 PO 08/17/16 21:00 09/16/16 20:59 08/27/16 20:22 400 MG Gabapentin (Neurontin Cap) 400 mg SuTuThSa@0900,1400,2100 PO 08/18/16 09:00 09/17/16 08:59 08/28/16 20:11 400 MG Lactobacillus Acidophilus (Floranex Tab) 4 tab BID PO 08/17/16 21:00 09/16/16 20:59 08/29/16 07:34 4 TAB Latanoprost (Xalatan Oph Soln) 1 drops HS OPL 08/17/16 21:00 09/16/16 20:59 08/28/16 20:11 1 DROPS Levothyroxine Sodium (Synthroid Tab) 100 mcg DAILYBB PO 08/18/16 06:30 09/17/16 08:59 08/29/16 04:44 100 MCG Midodrine (Proamatine Tab) 2.5 mg BID17 PO 08/17/16 21:00 09/16/16 20:59 08/29/16 17:00 2.5 MG Oxycodone/ Acetaminophen (Percocet 5-325mg Tab) 1 tab Q4H PRN PO 08/17/16 21:00 08/31/16 20:59 Sucralfate (Carafate Susp) 1 gm QID PO 08/17/16 21:00 09/16/16 20:59 08/25/16 08:18 1 GM Apixaban (Eliquis Tab) 5 mg Q12 PO 08/17/16 21:00 09/16/16 20:59 08/28/16 20:10 5 MG Vitamin B Complex/ Vit C/Folic Acid (Nephrocaps) 1 cap BID PO 08/17/16 21:00 09/16/16 20:59 08/28/16 20:08 1 CAP Metronidazole HCl (Metrogel Topical Gel) 1 appln DAILY TOP 08/18/16 09:00 09/17/16 08:59 08/29/16 16:56 1 APPLN Pantoprazole Sodium (Protonix Tab) 40 mg DAILY PO 08/18/16 09:00 09/17/16 08:59 08/29/16 07:33 40 MG Acetaminophen (Tylenol Tab) 650 mg Q4H PRN PO 08/17/16 21:15 09/16/16 21:14 08/24/16 06:08 650 MG Al Hydrox/Mg Hydrox/Simethicone (Maalox Max Susp) 15 ml Q4H PRN PO 08/17/16 21:15 09/16/16 21:14 Magnesium Hydroxide (Milk Of Magnesia Susp) 30 ml Q6H PRN PO 08/17/16 21:15 09/16/16 21:14 08/25/16 09:25 30 ML Polyethylene (Miralax Powder Packet) 17 gm DAILY PRN PO 08/17/16 21:15 09/16/16 21:14 08/25/16 14:05 17 GM Ondansetron HCl (Zofran Inj) 4 mg Q6H PRN IV 08/17/16 21:15 09/16/16 21:14 Last 24 Hours Test 08/28/16 20:19 08/29/16 07:42 08/29/16 07:52 08/29/16 11:28 Bedside Glucose 113 mg/dl 116 mg/dl 73 mg/dl White Blood Count 4.77 K/uL Red Blood Count 3.46 M/uL Hemoglobin 10.2 g/dL Hematocrit 31.7 % Mean Corpuscular Volume 91.6 fL Mean Corpuscular Hemoglobin 29.5 pg Mean Corpuscular Hemoglobin Concent 32.2 g/dl Platelet Count 243 K/uL Mean Platelet Volume 10.5 fL Neutrophils (%) (Auto) 53.6 % Lymphocytes (%) (Auto) 29.8 % Monocytes (%) (Auto) 10.1 % Eosinophils (%) (Auto) 5.9 % Basophils (%) (Auto) 0.4 % Neutrophils # (Auto) 2.56 K/uL Lymphocytes # (Auto) 1.42 K/uL Monocytes # (Auto) 0.48 K/uL Eosinophils # (Auto) 0.28 K/uL Basophils # (Auto) 0.02 K/uL RDW Standard Deviation 54.9 fL RDW Coefficient of Variation 16.5 % Immature Granulocyte % (Auto) 0.2 % Immature Granulocyte # (Auto) 0.01 K/uL Sodium Level 135 mmol/L Potassium Level 4.9 mmol/L Chloride Level 101 mmol/L Carbon Dioxide Level 19 mmol/L Anion Gap 15.0 mmol/L Blood Urea Nitrogen 104 mg/dl Creatinine 9.10 mg/dl Est Creatinine Clear Calc Drug Dose 9.2 ml/min Estimated GFR () 6.6 Estimated GFR (Non- 5.7 BUN/Creatinine Ratio 11.4 Random Glucose 83 mg/dl Calcium Level 9.0 mg/dl Test 08/29/16 16:25 Bedside Glucose 92 mg/dl Assessment & Plan ESRD-will continue to dialyze every m/w/f. for diaysis today. awaiting placement. 2k bath. uf as tolerated. Anemia of renal failure-hg levels are stable. hg of 10.2 at last check. on procrit. LILA-phos of 4.5 is good. continues on phosphate binders.
[2017-02-03] MEDS ORDERED: PRLSR20 PO ×2 (09:24)
[2017-02-03] MEDS ORDERED: OXYC-57 PO (09:24)
[2017-02-03] MEDS ORDERED: PRMT25 PO (09:24)
[2017-02-03] MEDS ORDERED: INDO-22 PO (09:25)
[2017-02-03] MEDS ORDERED: DXY100 PO (09:25)
[2017-02-08] MEDS ORDERED: ACET325T96 PO (09:05)
[2017-02-08] MEDS ORDERED: LEVO100T PO (11:59)
[2017-02-08] MEDS ORDERED: GABA1CAP5 PO ×2 (12:29→22:08)
[2017-02-08] MEDS ORDERED: POLY1POW2 PO (17:32)
[2017-02-08] MEDS ORDERED: BISA10SU3 PR (17:32)
[2017-02-08] MEDS ORDERED: SODIENE PR (17:32)
[2017-02-08] MEDS ORDERED: FINA5TAB PO ×2 (17:32→22:25)
[2017-02-08] MEDS ORDERED: LATA0.5S OPL (17:32)
[2017-02-12] MEDS ORDERED: APIX1TAB3 PO ×2 (10:37)
== END 2016-08-29 18:25 | DRG 314 ==
LOC: ENRESERVDT → ENRESERVTM → EDBD 11:19 → C.EDB 11:21 → UNDOADMIN 21:08 → C.MS2W 21:08
PROVIDERS: ADMIT Internal Medicine; ATTEND Internal Medicine
DX: I95.9 Hypotension, unspecified (principal); N18.6 End stage renal disease; G93.41 Metabolic encephalopathy; I13.2 Hypertensive heart and chronic kidney disease with heart failure and with stage 5 chronic kidney disease, or end stage renal disease; I50.32 Chronic diastolic (congestive) heart failure; E27.40 Unspecified adrenocortical insufficiency; Z99.2 Dependence on renal dialysis; E66.01 Morbid (severe) obesity due to excess calories; Z68.29 Body mass index [BMI] 29.0-29.9, adult; I25.10 Atherosclerotic heart disease of native coronary artery without angina pectoris; I25.2 Old myocardial infarction; E03.9 Hypothyroidism, unspecified; E78.5 Hyperlipidemia, unspecified; E11.40 Type 2 diabetes mellitus with diabetic neuropathy, unspecified; E11.51 Type 2 diabetes mellitus with diabetic peripheral angiopathy without gangrene; H40.9 Unspecified glaucoma; Z98.84 Bariatric surgery status; Z89.512 Acquired absence of left leg below knee; Z79.899 Other long term (current) drug therapy; Z83.3 Family history of diabetes mellitus; Z82.49 Family history of ischemic heart disease and other diseases of the circulatory system; E11.319 Type 2 diabetes mellitus with unspecified diabetic retinopathy without macular edema; Z87.19 Personal history of other diseases of the digestive system; E55.9 Vitamin D deficiency, unspecified; Z80.9 Family history of malignant neoplasm, unspecified; F32.9 Major depressive disorder, single episode, unspecified; D63.1 Anemia in chronic kidney disease; Z66 Do not resuscitate; N25.0 Renal osteodystrophy; I48.91 Unspecified atrial fibrillation; Z86.14 Personal history of Methicillin resistant Staphylococcus aureus infection; Z86.010 Personal history of colon polyps; Z86.718 Personal history of other venous thrombosis and embolism; I69.398 Other sequelae of cerebral infarction; Z96.649 Presence of unspecified artificial hip joint; Z74.2 Need for assistance at home and no other household member able to render care; D64.9 Anemia, unspecified; I49.9 Cardiac arrhythmia, unspecified; Z86.73 Personal history of transient ischemic attack (TIA), and cerebral infarction without residual deficits; E87.5 Hyperkalemia; G43.909 Migraine, unspecified, not intractable, without status migrainosus; R80.9 Proteinuria, unspecified

== ENCOUNTER 2016-12-14 10:30 | Emergency (ER) | payer OTHER ==
[~2016-12-14] VITALS: Ht 170.2 cm; Wt 85.0 kg
[~2016-12-14 10:30] MED LIST changes: +ACET325T96 PO; +BISA10SU3 PR; +FINA5TAB PO; +LATA0.5S OPL; +LEVO100T PO; +POLY1POW2 PO; +SODIENE PR; -VNCE1000 IV
[2016-12-14 10:40] VITALS: TEMP 36.7; Ht 170.2 cm; Wt 85.0 kg
[2016-12-14] MEDS ORDERED: PROM25TA9 PO (12:29)
[2016-12-14] MEDS ORDERED: PRMT25 PO (12:29)
[2016-12-14] MEDS ORDERED: FLUO20CA35 PO (12:29)
[2016-12-14] MEDS ORDERED: ZNTT/150 PO (12:29)
[2016-12-14] MEDS ORDERED: SEVE800T7 PO (12:29)
[2016-12-14] MEDS ORDERED: B COLIQ PO (12:29)
[2016-12-14] MEDS ORDERED: FERR1TAB68 PO (12:29)
[2016-12-14] MEDS ORDERED: GABA1CAP5 PO (12:29)
[2016-12-14] MEDS ORDERED: LIDO1KIT TD (12:29)
[2016-12-14] MEDS ORDERED: CHOL4POW3 PO (12:29)
[2016-12-14 12:50] VITALS: O2SAT 92
--- NOTE | 2016-12-14 12:52 | EMERGENCY ROOM VISIT NOTE ---
ED Visit Note First contact with patient: 11:31 61-year-old male with back pain was fully evaluated by Jordon Alston PA-C. Please see his note. I also independently evaluated the patient. The patient was asymptomatic at time of discharge.
[2016-12-14 14:16] VITALS: BP 98/54; PULSE 81
--- NOTE | 2016-12-14 20:04 | EMERGENCY ROOM VISIT NOTE ---
ED Visit Note First contact with patient: 11:31 Chief Complaint: Back pain. History of Present Illness: Mr. Mckoy is a 61-year-old white male who is brought into the ED via ambulance with thoracic back pain. Patient denies any previous thoracic back injuries or surgeries. Patient reports he was at dialysis this morning and while having the procedure performed he developed thoracic back pain. He describes the pain as an achy sensation "between the shoulder blades". He rates the discomfort 2/10. The pain was nonradiating. He denied identified any aggravating factors related to the pain. He has not had any medications for pain prior to arrival at the hospital. When he was done with dialysis he reports the ambulance crew was moving him from the bed to the ambulance litter and the pain resolved. On my evaluation patient reports he is pain-free. Additionally he reports during dialysis he had a few minutes of nausea which resolved and does not remember if this was also present when he was experiencing pain or He denies fevers, chills, sweats, skin eruptions, skin color changes, dizziness , lightheadedness, upper respiratory tract symptoms, cough, wheezing, shortness of breath, palpitations, chest pain/discomfort, recent trauma, hematuria, urinary symptoms, abdominal pain, diarrhea, constipation, rectal bleeding, black /tarry stools. Review of Systems: As noted above in history of present illness. All body systems were reviewed and found to be negative as noted above. Past Medical History: (1) Anemia (2) Arrhythmia (3) Bacteremia (4) CAD (coronary artery disease) (5) Congestive Heart Failure Nos (6) Depression (7) Diab W Oth Spec Manifest, Type Ii Or Unspec Type, Not Uncntr (8) Diabetic retinopathy (9) DM type 2 (diabetes mellitus, type 2) (10) End stage renal disease (11) ESRD (end stage renal disease) on dialysis (12) Fluency disorder following cerebrovascular accident (13) History of Clostridium difficile colitis (14) History of CVA (cerebrovascular accident) (15) History of GI bleed (16) History of methicillin resistant staphylococcus aureus (MRSA) (17) History of non-ST elevation myocardial infarction (NSTEMI) (18) Hyperkalemia (19) hyperkalemia, ESRD, wrist fx (20) Hyperlipidemia Nec/Nos (21) Hypertension Nos (22) Hypothyroidism Nos (23) Migraine (24) Morbid obesity (25) Peritonitis (26) Polyneuropathy in diabetes (27) Proteinuria (28) Social disinhibition (29) Vitamin D deficiency Surgical Problems: (1) Great toe amputation status (2) H/O gastric bypass (3) H/O total hip arthroplasty (4) History of cholecystectomy (5) History of colonoscopy with polypectomy (6) History of left below knee amputation Current Medications: Medications Dose Route/Sig Max Daily Dose Days Date Category Dose Instructions Neurontin (Gabapentin) 400 Mg Cap 400 Mg PO MWF 12/14/16 Reported 1 TAB PO TID MWF Midodrine HCl (Midodrine) 2.5 Mg Tab 2 Tab PO MWF 12/14/16 Reported 1 TAB PO BID MWF Renvela (Sevelamer Carbonate) 800 Mg Tab 2 Tab PO WM 12/14/16 Reported Prilolid 2.5-2.5 % (Lidocaine-Prilocaine) 1 Kit Kit 1 Dose TD 12/14/16 Reported APPLY TO RIGHT UPPER ARM PRIOR TO DIALYSIS Zantac (Ranitidine HCl) 150 Mg Tab 150 Mg PO HS 12/14/16 Reported Phenergan (Promethazine HCl) 25 Mg Tab 25 Mg PO Q4H PRN 12/14/16 Reported Prozac (Fluoxetine HCl) 20 Mg Cap 2 Cap PO DAILY 12/14/16 Reported Auryxia (Ferric Citrate) 210 Mg Tab 1 Tab PO WM 12/14/16 Reported Cholestyramine 4 Gm/Dose Pow 1 Dose PO DAILY 12/14/16 Reported Nephronex 0.9 mg/5Ml (B-Complex W/ C & Folic Acid) 1 Liq Liq 5 Ml PO BID 12/14/16 Reported Percocet 5MG/325MG (Oxycodone/Acetaminophen) Tab 1 Tablet PO Q4H PRN 30 08/29/16 Rx Polyethylene Glycol 3350 (Polyethylene Glycol 3350 (Bulk) 1 Pow Pow 17 Gm PO DAILY PRN 08/14/16 Reported Fleet Enema (Sodium Phosphate/Biphosphate) Yulisa 1 Ea PA UD PRN 08/14/16 Reported Proscar (Finasteride) 5 Mg Tab 5 Mg PO DAILY 08/14/16 Reported Dulcolax (Bisacodyl) 10 Mg Sup 1 Supp PA DAILY PRN 08/14/16 Reported Xalatan 0.005% Oph Katya (Latanoprost) 0.005 % Katya 1 Drop OPL HS 08/14/16 Reported Metronidazole (Metronidazole Hcl) 135 Appln/45 Gm Cr 1 Appln TOP DAILY 30 07/24/16 Rx Sucralfate 1 Gm/10 Ml Arianna 1 Gm PO QID 07/20/16 Reported Tylenol (Acetaminophen) 325 Mg Tab 325-650 Mg PO Q6H PRN 11/14/15 Reported Lactinex (Lactobacillus Acidophilus) Tab 1 Tab PO BID 07/12/15 Reported 1 TAB DAILY MWF 2 TAB ALL OTHER DAYS Synthroid (Levothyroxine Sodium) 100 Mcg Tab 100 Mcg PO DAILY 07/12/15 Reported TAKE THIS MEDICATION ON AN EMPTY STOMACH AND 30 MINUTES BEFORE BREAKFAST OR ANY OTHER MEDICATIONS Prilosec (Omeprazole) 20 Mg Capcr 20 Mg PO DAILY 07/12/15 Reported Allergies to Medications: Patient denies. Social History: Patient is not currently employed; he feels safe in his home environment; patient denies tobacco use. Physical Examination: Vital Signs: Date Time Temp Pulse Resp B/P (MAP) Pulse Ox O2 Delivery O2 Flow Rate FiO2 12/14/16 14:16 81 16 98/54 12/14/16 12:50 85 16 104/48 92 Room Air 12/14/16 10:48 74 12/14/16 10:40 36.7 75 16 117/52 95 Room Air GENERAL: 61-year-old male in no acute distress, chronically ill-appearing, afebrile and hemodynamically stable. NEUROLOGICAL: Awake, alert and oriented to person, place and time. Answering questions appropriately and following commands. Good hand eye coordination. SKIN: Warm, dry and pink. Multiple superficial abrasions predominantly on the arms without signs of infection. HEENT: Atraumatic and normocephalic. PERRLA. Sclera white and conjunctiva pink. No drainage from naris. Oral cavity moist and pink. Pharynx is nonerythematous or edematous. Speech normal. No lymphadenopathy. Trachea midline. No jugular venous distention. BACK: No tenderness over the bony cervical and thoracic spine. No tenderness or muscle spasm throughout the paraspinous muscles. No CVA tenderness. THORAX: Lungs sounds are clear to auscultation and equal bilaterally with symmetrical chest wall. No wheezing, rales or rhonchi. No crepitus, tenderness , subcutaneous air or deformities noted. ABDOMEN: Flat, soft and nontender. Positive bowel sounds in all quadrants. No guarding, rigidity or organomegaly. ED Course: Patient is assessed as noted above. Patient's medication list was reviewed. Patient's case was reviewed with Dr. Reyes; inability assessed the patient we agreed on diagnostic approach, treatment, disposition and plan. Patient was educated about today's findings and instructed on his treatment plan ; he verbalizes understanding and agreement with this plan. Clinical Impression: Thoracic back pain. Pain resolved. Decision-Making: Initially my differential diagnosis I considered musculoskeletal disorder, thoracic aneurysm, pneumothorax, pulmonary embolism and other causes. Disposition: Patient discharged back to [facility] in stable condition; prior to departure he was reassessed and subjectively reported he was pain-free. Plan: Continue current medications as prescribed. Follow-up with primary care provider for recheck for continued pain in 2-3 days. Patient was encouraged return the ED for severe pain, fevers or any new/ concerning symptoms.
== END 2016-12-14 14:17 | disposition home or self-care (01) ==
LOC: EDBD 10:30 → C.EDC 10:31
DX: M54.6 Pain in thoracic spine (principal); N18.6 End stage renal disease; Z99.2 Dependence on renal dialysis; I25.10 Atherosclerotic heart disease of native coronary artery without angina pectoris; F32.9 Major depressive disorder, single episode, unspecified; E11.319 Type 2 diabetes mellitus with unspecified diabetic retinopathy without macular edema; E11.29 Type 2 diabetes mellitus with other diabetic kidney complication; Z86.73 Personal history of transient ischemic attack (TIA), and cerebral infarction without residual deficits; I25.2 Old myocardial infarction; E78.5 Hyperlipidemia, unspecified; E03.9 Hypothyroidism, unspecified; E11.43 Type 2 diabetes mellitus with diabetic autonomic (poly)neuropathy; E55.9 Vitamin D deficiency, unspecified; Z89.419 Acquired absence of unspecified great toe; Z98.84 Bariatric surgery status; Z96.649 Presence of unspecified artificial hip joint; Z90.49 Acquired absence of other specified parts of digestive tract; Z89.522 Acquired absence of left knee; Z86.010 Personal history of colon polyps; Z79.899 Other long term (current) drug therapy

== ENCOUNTER 2017-01-30 18:20 | Inpatient (IN) | payer OTHER ==
[~2017-01-30] VITALS: Ht 172.7 cm; Wt 77.9 kg
[~2017-01-30 18:20] MED LIST changes: -ACET325T96 PO; -APIX1TAB3 PO; -BISA10SU3 PR; -CALC667C4 PO; +CHOL4POW3 PO; -ESCI10TA17 PO; +FERR1TAB68 PO; -FINA5TAB PO; -FLUD0.1T10 PO; +FLUO20CA35 PO; -GABA1CAP5 PO; -LATA0.5S OPL; -LEVO100T PO; +LIDO1KIT TD; -MIDO2.5T PO; -MTRCR45 TOP; -NRN400 PO; -POLY1POW2 PO; +PRMT25 PO; +PROM25TA9 PO; +SEVE800T7 PO; -SODIENE PR; +ZNTT/150 PO
[2017-01-30] MEDS ORDERED: SODIUM CHLORIDE 0.9% 1000ML 500 ML IV STA (18:48)
[2017-01-30 19:24] LABS: HEMATOCRIT 38.9 % (42-52); MEAN CELL VOLUME 94.6 fL (80-100); MEAN CORPUSCULAR HEMOGLOBIN 29.4 pg (25-34); MEAN CORPUSCULAR HGB CONC 31.1 g/dl (32-36); MEAN PLATELET VOLUME 10.4 fL (7.4-10.4); PLATELET COUNT 194 K/uL (130-400); RED BLOOD COUNT 4.11 M/uL (4.7-6.1); WHITE BLOOD COUNT 14.35 K/uL (4.8-10.8)
--- NOTE | 2017-01-30 19:24 | DIAGNOSTIC IMAGING REPORT ---
CHEST ONE VIEW PORTABLE CLINICAL HISTORY: 61 years-old Male presenting with Evaluate Fever/Sepsis. TECHNIQUE: Portable semiupright AP view of the chest was obtained. COMPARISON: 07/22/2016. FINDINGS: The patient is BUSTAMANTE rotated. Tunneled right subclavian dialysis catheter terminates in the superior cavoatrial junction. Slight prominence of the cardiac silhouette, possibly in part due to mildly low lung volumes and hypoventilatory changes. Left retrocardiac opacity. No large effusion or pneumothorax. Degenerative changes of the spine. Upper abdomen normal. IMPRESSION: 1. Mildly low lung volumes with hypoventilatory changes. 2. Suggestion of left retrocardiac opacity, which could represent focal consolidation/pneumonia. This could be confirmed with PA and lateral chest x-ray if clinically warranted. Electronically signed by: Eliot Doty M.D. 01/30/2017 7:23 PM Dictated Date/Time: 01/30/2017 7:21 PM
[2017-01-30 19:34] LABS: PARTIAL THROMBOPLASTIN RATIO 1.3; PROTHROMBIN TIME (PATIENT) 10.9 SECONDS (9.0-12.0)
[2017-01-30 19:43] LABS: ALT/SGPT 31 U/L (12-78); BLOOD UREA NITROGEN 29 mg/dl (7-18); BUN/CREATININE RATIO 7.3 (10-20); CALCIUM 9.3 mg/dl (8.5-10.1); CARBON DIOXIDE 29 mmol/L (21-32); CHLORIDE 94 mmol/L (98-107); GLUCOSE 136 mg/dl (70-99); POTASSIUM 4.5 mmol/L (3.5-5.1); SODIUM 132 mmol/L (136-145)
[2017-01-30 19:51] LABS: BASO % 0.1 %; BASO ABS # 0.01 K/uL (0-0.2); COMPLETE YES; EOS % 0.1 %; IG% 0.3 %; LYMPH % 2.8 %; MONO % 2.9 %; NEUT % 93.8 %
[2017-01-30 19:54] LABS: ALKALINE PHOSPHATASE 81 U/L (45-117); AST/SGOT 22 U/L (15-37)
--- NOTE | 2017-01-30 20:15 | DIAGNOSTIC IMAGING REPORT ---
HEAD WITHOUT CONTRAST (CT) CLINICAL HISTORY: 61 years-old Male presenting with Evaluate Fever/Sepsis. TECHNIQUE: Multidetector CT imaging of the head was performed without the use of intravenous contrast. IV contrast: None. A dose lowering technique was used consistent with the principles of ALARA (as low as reasonably achievable). COMPARISON: 04/11/2015. CT DOSE (mGy.cm): The estimated cumulative dose is 614.27 mGy.cm. FINDINGS: [employer]ra[employer] topogram: Unremarkable. Ventricles and sulci normal in size. Periventricular and subcortical white matter hypoattenuation, nonspecific but likely indicative of chronic small vessel ischemic change. Old infarcts in the right occipital lobe, left parietal lobe, and right cerebellar hemisphere unchanged from prior. No mass effect or midline shift. No hemorrhage or acute territorial infarct. No extra-axial fluid collection. Paranasal sinuses and mastoid air cells clear. Calvarium intact. IMPRESSION: 1. No acute intracranial pathology. 2. Multifocal old infarcts unchanged from prior. Electronically signed by: Eliot Doty M.D. 01/30/2017 8:14 PM Dictated Date/Time: 01/30/2017 8:11 PM
[2017-01-30 20:43] LABS: ISTAT ARTERIAL BLOOD GAS HCO3 29 meq/L (19-24); ISTAT ARTERIAL BLOOD GAS PCO2 50 mmHg (35-46); ISTAT ARTERIAL BLOOD GAS PO2 34 mmHg (80-95); ISTAT ARTERIAL BLOOD GAS pH 7.38 (7.35-7.45); ISTAT CARBON DIOXIDE 31 mEq/l (24-31); ISTAT HEMATOCRIT 37 % (42-52); ISTAT HEMOGLOBIN 12.6 g/dl (14.0-18.0); ISTAT SODIUM 132 mEq/L (135-144)
[2017-01-30] MEDS ORDERED: PRMT25 PO (22:08)
[2017-01-30] MEDS ORDERED: PRLSR20 PO (22:08)
[2017-01-30] MEDS ORDERED: LEVAQUIN 500MG / 100ML D5W IV ONE (22:15)
[2017-01-30] MEDS ORDERED: PIPERACILLIN/TAZOBACTAM 4.5 GM/100ML D5W IV STA (22:15)
--- NOTE | 2017-01-30 23:04 | History and Physical ---
History & Physical Date & Time of Service: Jan 30, 2017 at 22:59 Chief Complaint: Hypotension, Primary Care Physician: Nick Ho History of Present Illness Source: hospital records, other 61 y/o M with an increasingly complex medical history including CAD, diastolic CHF, CVA with expressive deficits, DM, hypotension, ESRD - Pt was at dialysis when he was noted to display hypotension and altered mentation. He was sent to the ER for evaluation. He can converse currently but cannot answer questions appropriately and is unable to provide a reliable history. He denies any symptoms and states that he feels fine. Initial labs and imaging are not consistent with infection although there is a questionable retrocardiac infiltrate. His BP has been persistently low since arrival with a systolic pressure of 60-70. Per the dialysis report - 3L fluid were removed. The pt is care-dependent and was last admitted to the hospital for disinhibited or inappropriate behavior 08/17 - this appears to have resolved. 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 Anemia of chronic disease with baseline hemoglobin 8.5 to 9. 2. Depression. 3. CHF, grade 1 diastolic with a preserved ejection fraction. 4. Former - morbid obesity - pt is cachectic 5. Type 2 diabetes. 6. Hypertension. 7. Coronary artery disease with history of non-ST elevation myocardial infarction. 8. Hyperlipidemia. 9. Hypothyroidism. 10. History of migraine headaches. 11. History of CVA with mild expressive deficits. 12. Neuropathy. 13. Peripheral vascular disease with resultant left BKA and a great toe amputation. 14. History of DVT. 15. Glaucoma. 16. Dialysis-related hypotension. 17. Possible history of ventricular arrhythmias. PAST SURGICAL HISTORY: 1. Left [id number] amputation. 2. Gastric bypass surgery. 3. Peritoneal dialysis catheter placement recently. 4. Cholecystectomy. Family History FH: heart disease FATHER FHx: cancer FATHER Hypertension Social History Smoking Status: Never Smoker Drug Use: none Marital Status: single Housing status: lives alone, other Occupational Status: disabled Multi-Drug Resistant Organisms History of MDRO: Yes Type of MDRO: MRSA Allergies Coded Allergies: No Known Allergies (Verified , `, 12/14/16) Home Medications Scheduled Apixaban (Eliquis), 5 MG PO Q12 Apixaban (Eliquis), 5 MG PO [id number]-[id number] B-Complex W/ C & Folic Acid (Nephronex), 1 TAB PO DAILY B-Complex W/ C & Folic Acid (Nephronex), 1 TAB PO MWF Calcium Acetate (Phoslo 667 Mg), 3 CAP PO TID M-W-F Calcium Acetate (Phoslo 667 Mg), 3 CAP PO TID [id number] UD Escitalopram (Lexapro), 10 MG PO MWF Escitalopram (Lexapro), 10 MG PO 4XWK Finasteride (Proscar), 5 MG PO DAILY Fludrocortisone Acetate (Florinef), 0.1 MG PO DAILY Gabapentin (Neurontin), 400 MG PO UD Gabapentin (Neurontin), 400 MG PO TID UD Lactobacillus Acidophilus (Lactinex), 1 TAB PO BID M-W-F Lactobacillus Acidophilus (Lactinex), 1 TAB PO [id number] Latanoprost (Xalatan 0.005% Oph Katya), 1 DROP OPL HS Levothyroxine Sodium (Synthroid), 100 MCG PO DAILY Midodrine (Midodrine HCl), 2.5 MG PO UD Omeprazole (Prilosec), 20 MG PO MWF Omeprazole (Prilosec), 20 MG PO [id number] Sucralfate (Carafate), 1 GM PO BID M-W-F Sucralfate (Carafate), 1 GM PO BID [id number] Scheduled PRN Acetaminophen Tab (Tylenol), 650 MG PO Q6H PRN for MILD PAIN 1-4, FEVER>101 Bisacodyl (Dulcolax), 1 SUPP GA DAILY PRN for Constipation Oxycodone/Acetaminophen 5MG/325MG (Percocet 5MG/325MG), 1 TABLET PO Q4H PRN for Pain Polyethylene Glycol 3350 (Bulk (Polyethylene Glycol 3350), 17 GM PO DAILY PRN for Constipation Sodium Phosphate/Biphosphate (Fleet Enema), 1 EA GA UD PRN for Constipation Review of Systems Cannot obtain from this pt Physical Exam Vital Signs Date Time Temp Pulse Resp B/P (MAP) Pulse Ox O2 Delivery O2 Flow Rate FiO2 01/30/17 22:30 69 01/30/17 22:05 77 14 94 01/30/17 22:01 61/40 01/30/17 21:55 77 18 95 8/30/17 21:51 64/40 01/30/17 21:46 97 Nasal Cannula 2.0 01/30/17 21:45 79 15 97 01/30/17 21:41 59/41 01/30/17 21:35 75 13 01/30/17 21:30 70/43 01/30/17 21:27 78 13 95 01/30/17 21:24 59/32 01/30/17 21:21 59/34 01/30/17 21:17 80 7 94 01/30/17 21:11 79/39 01/30/17 21:09 79/42 01/30/17 21:07 79 15 94 01/30/17 21:01 56/39 01/30/17 20:57 81 16 95 01/30/17 20:52 55/37 01/30/17 20:51 57/38 01/30/17 20:47 79 12 96 01/30/17 20:42 79 15 96 01/30/17 20:41 83/54 01/30/17 20:32 83 17 95 01/30/17 20:31 79/57 01/30/17 20:22 84 13 95 01/30/17 20:17 84 13 95 01/30/17 20:11 76/48 01/30/17 19:37 84 16 01/30/17 19:31 /48 01/30/17 19:27 86 14 01/30/17 19:22 80/34 01/30/17 19:17 89 17 01/30/17 19:12 61/35 01/30/17 19:11 97 Nasal Cannula 4.0 01/30/17 19:10 97 Nasal Cannula 4.0 01/30/17 19:10 88 14 01/30/17 19:02 78/49 01/30/17 19:00 89 14 01/30/17 18:51 36.8 92 17 62/40 88 Room Air 01/30/17 18:51 94/78 01/30/17 18:50 89 14 97 01/30/17 18:49 73/40 01/30/17 18:43 63/45 01/30/17 18:42 75/32 01/30/17 18:38 62/40 01/30/17 18:35 90 General Appearance: + pertinent finding (Thin, middle-aged male - does not answer questions appropriately - mild lethargy - no distress) Head: normocephalic, atraumatic ENT: normal ENT inspection, pharynx normal Neck: supple, no JVD Respiratory/Chest: normal breath sounds, + pertinent finding (Poor air entry at bases - no wheezing or crackles) Cardiovascular: regular rate, rhythm, no edema, no gallop, no JVD, no murmur, + pertinent finding (Dialysis cath in R chest wall - no induration) Abdomen/GI: normal bowel sounds, non tender, soft Back: normal inspection, no CVA tenderness, no muscle spasm, normal range of motion Extremities/Musculoskelatal: no calf tenderness, + pertinent finding (L BKA) Neurologic/Psych: hotbed transfer operator II-XII nml as tested, + pertinent finding (Pt is disoriented - exam is otherwise nonfocal) Skin: warm/dry, no rash, + pallor Diagnostics Laboratory Results Results Past 24 Hours Test 01/30/17 18:44 01/30/17 19:00 01/30/17 19:34 01/30/17 20:27 Range/Units Bedside Glucose 140 70-99 mg/dl White Blood Count 14.35 4.8-10.8 K/uL Red Blood Count 4.11 4.7-6.1 M/uL Hemoglobin 12.1 14.0-18.0 g/dL Hematocrit 38.9 42-52 % Mean Corpuscular Volume 94.6 80-100 fL Mean Corpuscular Hemoglobin 29.4 25-34 pg Mean Corpuscular Hemoglobin Concent 31.1 32-36 g/dl Platelet Count 194 130-400 K/uL Mean Platelet Volume 10.4 7.4-10.4 fL Neutrophils (%) (Auto) 93.8 % Lymphocytes (%) (Auto) 2.8 % Monocytes (%) (Auto) 2.9 % Eosinophils (%) (Auto) 0.1 % Basophils (%) (Auto) 0.1 % Neutrophils # (Auto) 13.47 1.4-6.5 K/uL Lymphocytes # (Auto) 0.40 1.2-3.4 K/uL Monocytes # (Auto) 0.42 0.11-0.59 K/uL Eosinophils # (Auto) 0.01 0-0.5 K/uL Basophils # (Auto) 0.01 0-0.2 K/uL RDW Standard Deviation 54.2 36.4-46.3 fL RDW Coefficient of Variation 16.0 11.5-14.5 % Immature Granulocyte % (Auto) 0.3 % Immature Granulocyte # (Auto) 0.04 0.00-0.02 K/uL Prothrombin Time 10.9 9.0-12.0 SECONDS Prothromb Time International Ratio 1.0 0.9-1.1 Activated Partial Thromboplast Time 35.0 21.0-31.0 SECONDS Partial Thromboplastin Ratio 1.3 Sodium Level 132 136-145 mmol/L Potassium Level 4.5 3.5-5.1 mmol/L Chloride Level 94 98-107 mmol/L Carbon Dioxide Level 29 21-32 mmol/L Anion Gap 9.0 3-11 mmol/L Blood Urea Nitrogen 29 7-18 mg/dl Creatinine 4.00 0.60-1.40 mg/dl Est Creatinine Clear Calc Drug Dose 19.2 ml/min Estimated GFR () 17.8 Estimated GFR (Non- 15.3 BUN/Creatinine Ratio 7.3 10-20 Random Glucose 136 70-99 mg/dl Lactic Acid Level 2.2 0.4-2.0 mmol/L Calcium Level 9.3 8.5-10.1 mg/dl Total Bilirubin 0.6 0.2-1 mg/dl Direct Bilirubin 0.2 0-0.2 mg/dl Aspartate Amino Transf (AST/SGOT) 22 15-37 U/L Alanine Aminotransferase (ALT/SGPT) 31 12-78 U/L Alkaline Phosphatase 81 45-117 U/L Ammonia 26.0 11-32 umol/L Total Creatine Kinase 65 39-308 U/L Creatine Kinase MB < 0.5 0.5-3.6 ng/ml Creatine Kinase MB Ratio 0-3.0 Troponin I 0.020 0-0.045 ng/ml Total Protein 8.3 6.4-8.2 gm/dl Albumin 3.3 3.4-5.0 gm/dl Lipase 78 73-393 U/L Thyroid Stimulating Hormone (TSH) 1.130 0.300-4.500 uIu/ml Acetaminophen Level < 2 10-30 ug/ml Ethyl Alcohol mg/dL < 3.0 0-3 mg/dl Bedside Hemoglobin 12.6 14.0-18.0 g/dl Bedside Hematocrit 37 42-52 % Bedside Blood Gas pH (LAB) 7.38 7.35-7.45 Bedside Blood Gas pCO2 (LAB) 50 35-46 mmHg Bedside Blood Gas pO2 (LAB) 34 80-95 mmHg Bedside Blood Gas HCO3 (LAB) 29 19-24 meq/L Bedside Blood Gas Total CO2 31 24-31 mEq/l Bedside Blood Gas Base Excess (LAB) 4.0 -9-1.8 meq/L Bedside Blood Gas O2 Saturation 63.0 90-95 % Bedside Sodium 132 135-144 mEq/L Bedside Potassium 4.3 3.3-5.0 mEq/L Microbiology Results 01/30/17 Blood Culture, Received Pending 01/30/17 Blood Culture, Received Pending Diagnostic Radiology CXR: 1. Mildly low lung volumes with hypoventilatory changes. 2. Suggestion of left retrocardiac opacity, which could represent focal consolidation/pneumonia. This could be confirmed with PA and lateral chest x- ray if clinically warranted. EKG Sinus - first degree AV - LAFB - evidence of previous inf and septal infarct Impression Assessment and Plan 61 y/o M with an increasingly complex medical history including CAD, diastolic CHF, CVA with expressive deficits, DM, hypotension, DVT, ESRD - Pt was at dialysis when he was noted to display hypotension and altered mentation. He was sent to the ER for evaluation. He can converse currently but cannot answer questions appropriately and is unable to provide a reliable history. He denies any symptoms and states that he feels fine. Initial labs and imaging are not consistent with infection although there is a questionable retrocardiac infiltrate. His BP has been persistently low since arrival with a systolic pressure of 60-70. Per the dialysis report - 3L fluid were removed. 1) Hypotension and AMS - we do not have clear evidence of infection. He did not respond to a 500cc bolus in the ER. As the pt does not make urine, he is at risk of pulmonary edema. We will transfer the pt to the ICU and place a CVP for induction. He will receive fluids to optimize his volume status and we can reassess his mentation at that time. If he improves, we might presume that his AMS is related to hypoperfusion. With no improvement, we may want to workup further for infection. A CT of the chest may be helpful to r/o PNM based on the CXR. 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 3) CHF - diastolic - Pt is clinically dehydrated at present 4) CAD - no evidence of ACS at present - he is not currently on any related medications 5) History of DVT - cont Apixaban Full code - Apixaban prophylaxis Total time for this admit including review of labs, meds, EKG, imaging, records - discussion with pt and ER attending, grout machine tender - including critical care time - 50 min Level of Care Critical Care Resuscitation Status FULL RESUSCITATION VTE Prophylaxis Given or contraindicated: Other Anticoagulation
[2017-01-30] MEDS ORDERED: HEPARIN SOD 5000 UNIT/0.5 ML CARP SQ SCH (23:15)
[2017-01-30] MEDS ORDERED: MoRPHine SULFATE 2 MG/ML CARP IV PRN (23:15)
[2017-01-30] MEDS ORDERED: ACETAMINOPHEN 325 MG TAB PO PRN (23:15)
[2017-01-30] MEDS ORDERED: BISACODYL 10 MG SUPP PR PRN (23:30)
[2017-01-30] MEDS ORDERED: OXYCODONE/ACETAMINOPHEN 5-325 TAB PO PRN (23:30)
--- NOTE | 2017-01-30 23:47 | EMERGENCY ROOM VISIT NOTE ---
History Report prepared by Jason: João Lee Under the Supervision of: Dr. Jose Guadalupe Duron D.O. First contact with patient: 18:41 Chief Complaint: HYPOTENSION Stated Complaint: HYPOTENSION, History of Present Illness The patient is a 61 year old male who presents to the Emergency Room with complaints of hypotension that began recently. This history is limited secondary to the patient's altered mental status. The patient received dialysis today, where he had three pints taken off. When he arrived at the hospital, his pressures were normal and he was coherent. He then became lethargic and confused. He states that he has some back pain that he took Tylenol for after dialysis. Source of History: patient, nursing staff History Limited By: AMS Onset: recently Position: other (global) Symptom Intensity: 73/40 Quality: other (Hypotension) Timing: constant Associated Symptoms: + back pain, + weakness Review of Systems Limited secondary to the patient's altered mental status. Past Medical & Surgical Medical Problems: (1) Altered mental status (2) Anemia (3) Arrhythmia (4) Bacteremia (5) CAD (coronary artery disease) (6) Congestive Heart Failure Nos (7) Depression (8) Diab W Oth Spec Manifest, Type Ii Or Unspec Type, Not Uncntr (9) Diabetic retinopathy (10) DM type 2 (diabetes mellitus, type 2) (11) End stage renal disease (12) ESRD (end stage renal disease) on dialysis (13) Fluency disorder following cerebrovascular accident (14) History of Clostridium difficile colitis (15) History of CVA (cerebrovascular accident) (16) History of GI bleed (17) History of methicillin resistant staphylococcus aureus (MRSA) (18) History of non-ST elevation myocardial infarction (NSTEMI) (19) Hyperkalemia (20) hyperkalemia, ESRD, wrist fx (21) Hyperlipidemia Nec/Nos (22) Hypertension Nos (23) Hypothyroidism Nos (24) Migraine (25) Morbid obesity (26) Peritonitis (27) Polyneuropathy in diabetes (28) Proteinuria (29) Social disinhibition (30) Vitamin D deficiency Surgical Problems: (1) Great toe amputation status (2) H/O gastric bypass (3) H/O total hip arthroplasty (4) History of cholecystectomy (5) History of colonoscopy with polypectomy (6) History of left below knee amputation Family History FH: heart disease FATHER FHx: cancer FATHER Hypertension Social History Smoking Status: Former Smoker Alcohol Use: occasionally Drug Use: none Marital Status: single Housing Status: lives alone Occupation Status: disabled Current/Historical Medications Scheduled Apixaban (Eliquis), 5 MG PO Q12 Apixaban (Eliquis), 5 MG PO BIDM-W-F B-Complex W/ C & Folic Acid (Nephronex), 1 TAB PO DAILY B-Complex W/ C & Folic Acid (Nephronex), 1 TAB PO MWF Calcium Acetate (Phoslo 667 Mg), 3 CAP PO TID M-W-F Calcium Acetate (Phoslo 667 Mg), 3 CAP PO TID 4XSWK UD Escitalopram (Lexapro), 10 MG PO MWF Escitalopram (Lexapro), 10 MG PO 4XWK Finasteride (Proscar), 5 MG PO DAILY Fludrocortisone Acetate (Florinef), 0.1 MG PO DAILY Gabapentin (Neurontin), 400 MG PO UD Gabapentin (Neurontin), 400 MG PO TID UD Lactobacillus Acidophilus (Lactinex), 1 TAB PO BID M-W-F Lactobacillus Acidophilus (Lactinex), 1 TAB PO [id number] Latanoprost (Xalatan 0.005% Oph Katya), 1 DROP OPL HS Levothyroxine Sodium (Synthroid), 100 MCG PO DAILY Midodrine (Midodrine HCl), 2.5 MG PO UD Omeprazole (Prilosec), 20 MG PO MWF Omeprazole (Prilosec), 20 MG PO [id number] Sucralfate (Carafate), 1 GM PO BID M-W-F Sucralfate (Carafate), 1 GM PO BID 4XSWK Scheduled PRN Acetaminophen Tab (Tylenol), 650 MG PO Q6H PRN for MILD PAIN 1-4, FEVER>101 Bisacodyl (Dulcolax), 1 SUPP ID DAILY PRN for Constipation Oxycodone/Acetaminophen 5MG/325MG (Percocet 5MG/325MG), 1 TABLET PO Q4H PRN for Pain Polyethylene Glycol 3350 (Bulk (Polyethylene Glycol 3350), 17 GM PO DAILY PRN for Constipation Sodium Phosphate/Biphosphate (Fleet Enema), 1 EA ID UD PRN for Constipation Allergies Coded Allergies: No Known Allergies (Verified , `, 12/14/16) Physical Exam Vital Signs Date Time Temp Pulse Resp B/P (MAP) Pulse Ox O2 Delivery O2 Flow Rate FiO2 01/30/17 23:26 72 19 93 01/30/17 23:21 72/47 01/30/17 23:16 73 98 01/30/17 23:15 71/41 01/30/17 23:11 53/43 01/30/17 23:06 75 14 96 01/30/17 23:01 68/42 01/30/17 22:56 75 95 01/30/17 22:51 69/43 01/30/17 22:46 73 96 01/30/17 22:41 79/49 01/30/17 22:40 75 13 96 01/30/17 22:31 72/48 01/30/17 22:30 69 01/30/17 22:30 71 14 97 01/30/17 22:21 72/47 01/30/17 22:20 75 13 92 01/30/17 22:11 65/47 01/30/17 22:10 75 14 94 01/30/17 22:05 77 14 94 01/30/17 22:01 61/40 01/30/17 21:55 77 18 95 01/30/17 21:51 64/40 01/30/17 21:46 97 Nasal Cannula 2.0 01/30/17 21:45 79 15 97 01/30/17 21:41 59/41 01/30/17 21:35 75 13 01/30/17 21:30 70/43 01/30/17 21:27 78 13 95 01/30/17 21:24 59/32 01/30/17 21:21 59/34 01/30/17 21:17 80 17 94 01/30/17 21:11 79/39 01/30/17 21:09 79/42 01/30/17 21:07 79 15 94 01/30/17 21:01 56/39 01/30/17 20:57 81 16 95 01/30/17 20:52 55/37 01/30/17 20:51 57/38 01/30/17 20:47 79 12 96 01/30/17 20:42 79 15 96 01/30/17 20:41 83/54 01/30/17 20:32 83 17 95 01/30/17 20:31 79/57 01/30/17 20:22 84 13 95 01/30/17 20:17 84 13 95 01/30/17 20:11 76/48 01/30/17 19:37 84 16 01/30/17 19:31 /48 01/30/17 19:27 86 14 01/30/17 19:22 80/34 01/30/17 19:17 89 17 01/30/17 19:12 61/35 01/30/17 19:11 97 Nasal Cannula 4.0 01/30/17 19:10 97 Nasal Cannula 4.0 01/30/17 19:10 88 14 01/30/17 19:02 78/49 01/30/17 19:00 89 14 01/30/17 18:51 36.8 92 17 62/40 88 Room Air 01/30/17 18:51 94/78 01/30/17 18:50 89 14 97 01/30/17 18:49 73/40 01/30/17 18:43 63/45 01/30/17 18:42 75/32 01/30/17 18:38 62/40 01/30/17 18:35 90 Physical Exam CONSTITUTIONAL/VITAL SIGNS: Reviewed / noted above. GENERAL: Non-toxic in appearance. INTEGUMENTARY: Warm, dry, and [place]. HEAD: Normocephalic. EYES: without scleral icterus or trauma. ENT/OROPHARYNX: clear and moist. LYMPHADENOPATHY/NECK: Is supple without lymphadenopathy or meningismus. RESPIRATORY: Lungs clear and equal. CARDIOVASCULAR: Regular rate and rhythm. GI/ABDOMEN: Soft and nontender. No organomegaly or pulsatile mass. No rebound or guarding. Normal bowel sounds. EXTREMITIES: Warm and well perfused. Left BKA. BACK: No CVA tenderness. NEUROLOGICAL: He is arousable to verbal stimuli, confused on place and time. PSYCHIATRIC: normal affect. MUSCULOSKELETAL: Normally developed with good muscle tone. Dialysis catheter in place in the right chest wall. Medical Decision & Procedures ER Provider Diagnostic Interpretation: Radiology results as stated below per my review and radiologist interpretation: HEAD WITHOUT CONTRAST (CT) CLINICAL HISTORY: 61 years-old Male presenting with Evaluate Fever/Sepsis. TECHNIQUE: Multidetector CT imaging of the head was performed without the use of intravenous contrast. IV contrast: None. A dose lowering technique was used consistent with the principles of ALARA (as low as reasonably achievable). COMPARISON: 04/11/2015. CT DOSE (mGy.cm): The estimated cumulative dose is 614.27 mGy.cm. FINDINGS: Expense Clerk topogram: Unremarkable. Ventricles and sulci normal in size. Periventricular and subcortical white matter hypoattenuation, nonspecific but likely indicative of chronic small vessel ischemic change. Old infarcts in the right occipital lobe, left parietal lobe, and right cerebellar hemisphere unchanged from prior. No mass effect or midline shift. No hemorrhage or acute territorial infarct. No extra-axial fluid collection. Paranasal sinuses and mastoid air cells clear. Calvarium intact. IMPRESSION: 1. No acute intracranial pathology. 2. Multifocal old infarcts unchanged from prior. Electronically signed by: Eliot Doty M.D. 01/30/2017 8:14 PM Dictated Date/Time: 01/30/2017 8:11 PM CHEST ONE VIEW PORTABLE CLINICAL HISTORY: 61 years-old Male presenting with Evaluate Fever/Sepsis. TECHNIQUE: Portable semiupright AP view of the chest was obtained. COMPARISON: 07/22/2016. FINDINGS: The patient is BUSTAMANTE rotated. Tunneled right subclavian dialysis catheter terminates in the superior cavoatrial junction. Slight prominence of the cardiac silhouette, possibly in part due to mildly low lung volumes and hypoventilatory changes. Left retrocardiac opacity. No large effusion or pneumothorax. Degenerative changes of the spine. Upper abdomen normal. IMPRESSION: 1. Mildly low lung volumes with hypoventilatory changes. 2. Suggestion of left retrocardiac opacity, which could represent focal consolidation/pneumonia. This could be confirmed with PA and lateral chest x-ray if clinically warranted. Electronically signed by: Eliot Doty M.D. 01/30/2017 7:23 PM Dictated Date/Time: 01/30/2017 7:21 PM Laboratory Results 01/30/17 19:00 Red Blood Count 4.11, Mean Corpuscular Volume 94.6, Mean Corpuscular Hemoglobin 29.4, Mean Corpuscular Hemoglobin Concent 31.1, Mean Platelet Volume 10.4, Neutrophils (%) (Auto) 93.8, Lymphocytes (%) (Auto) 2.8, Monocytes (%) (Auto) 2.9, Eosinophils (%) (Auto) 0.1, Basophils (%) (Auto) 0.1, Neutrophils # (Auto) 13.47, Lymphocytes # (Auto) 0.40, Monocytes # (Auto) 0.42, Eosinophils # (Auto) 0.01, Basophils # (Auto) 0.01 01/30/17 19:00 Test 01/30/17 18:44 01/30/17 19:00 01/30/17 19:34 01/30/17 20:27 Bedside Glucose 140 mg/dl (70-99) White Blood Count 14.35 K/uL (4.8-10.8) Red Blood Count 4.11 M/uL (4.7-6.1) Hemoglobin 12.1 g/dL (14.0-18.0) Hematocrit 38.9 % (42-52) Mean Corpuscular Volume 94.6 fL (80-100) Mean Corpuscular Hemoglobin 29.4 pg (25-34) Mean Corpuscular Hemoglobin Concent 31.1 g/dl (32-36) Platelet Count 194 K/uL (130-400) Mean Platelet Volume 10.4 fL (7.4-10.4) Neutrophils (%) (Auto) 93.8 % Lymphocytes (%) (Auto) 2.8 % Monocytes (%) (Auto) 2.9 % Eosinophils (%) (Auto) 0.1 % Basophils (%) (Auto) 0.1 % Neutrophils # (Auto) 13.47 K/uL (1.4-6.5) Lymphocytes # (Auto) 0.40 K/uL (1.2-3.4) Monocytes # (Auto) 0.42 K/uL (0.11-0.59) Eosinophils # (Auto) 0.01 K/uL (0-0.5) Basophils # (Auto) 0.01 K/uL (0-0.2) RDW Standard Deviation 54.2 fL (36.4-46.3) RDW Coefficient of Variation 16.0 % (11.5-14.5) Immature Granulocyte % (Auto) 0.3 % Immature Granulocyte # (Auto) 0.04 K/uL (0.00-0.02) Prothrombin Time 10.9 SECONDS (9.0-12.0) Prothromb Time International Ratio 1.0 (0.9-1.1) Activated Partial Thromboplast Time 35.0 SECONDS (21.0-31.0) Partial Thromboplastin Ratio 1.3 Anion Gap 9.0 mmol/L (3-11) Est Creatinine Clear Calc Drug Dose 19.2 ml/min Estimated GFR () 17.8 Estimated GFR (Non- 15.3 BUN/Creatinine Ratio 7.3 (10-20) Lactic Acid Level 2.2 mmol/L (0.4-2.0) Calcium Level 9.3 mg/dl (8.5-10.1) Total Bilirubin 0.6 mg/dl (0.2-1) Direct Bilirubin 0.2 mg/dl (0-0.2) Aspartate Amino Transf (AST/SGOT) 22 U/L (15-37) Alanine Aminotransferase (ALT/SGPT) 31 U/L (12-78) Alkaline Phosphatase 81 U/L (45-117) Ammonia 26.0 umol/L (11-32) Total Creatine Kinase 65 U/L (39-308) Creatine Kinase MB < 0.5 ng/ml (0.5-3.6) Creatine Kinase MB Ratio (0-3.0) Troponin I 0.020 ng/ml (0-0.045) Total Protein 8.3 gm/dl (6.4-8.2) Albumin 3.3 gm/dl (3.4-5.0) Lipase 78 U/L (73-393) Thyroid Stimulating Hormone (TSH) 1.130 uIu/ml (0.300-4.500) Acetaminophen Level < 2 ug/ml (10-30) Ethyl Alcohol mg/dL < 3.0 mg/dl (0-3) Bedside Hemoglobin 12.6 g/dl (14.0-18.0) Bedside Hematocrit 37 % (42-52) Bedside Blood Gas pH (LAB) 7.38 (7.35-7.45) Bedside Blood Gas pCO2 (LAB) 50 mmHg (35-46) Bedside Blood Gas pO2 (LAB) 34 mmHg (80-95) Bedside Blood Gas HCO3 (LAB) 29 meq/L (19-24) Bedside Blood Gas Total CO2 31 mEq/l (24-31) Bedside Blood Gas Base Excess (LAB) 4.0 meq/L (-9-1.8) Bedside Blood Gas O2 Saturation 63.0 % (90-95) Bedside Sodium 132 mEq/L (135-144) Bedside Potassium 4.3 mEq/L (3.3-5.0) Laboratory results as stated above per my review. Medications Administered Medications (Trade) Dose Ordered Sig/Rigoberto Route Start Time Stop Time Status Last Admin Dose Admin Sodium Chloride 500 ml @ 200 mls/hr Q2H30M STAT IV 01/30/17 18:48 01/30/17 21:17 DC 01/30/17 20:12 200 MLS/HR Piperacillin Sod/ Tazobactam Sod (Zosyn Iv) 4.5 gm NOW STAT IV 01/30/17 22:15 01/30/17 22:17 DC 01/30/17 22:26 4.5 GM Levofloxacin (Levaquin / D5W) 500 mg NOW ONCE IV 01/30/17 22:15 01/30/17 22:17 DC 01/30/17 23:26 500 MG ECG Indication: weakness Rate (beats per minute): 90 Rhythm: sinus rhythm Findings: 1st degree AV block, no acute ischemic change, no ectopy ED Course 1840: Previous medical records were reviewed. The patient was evaluated in room B7. A complete history and physical examination was performed. 1848: Ordered Sodium Chloride 500 ml @ 200 mls/hr IV 5: Ordered Levofloxacin 500 mg IV, Zosyn Iv 4.5 gm IV 2229: On reevaluation, the patient is resting. I discussed the results and findings with him. I spoke with Dr. Wilkins of the [facility]. The patient will be evaluated for further management and care. Medical Decision Differentials include: Acute coronary syndrome, myocardial infarction, CVA, TIA , anemia, infection, pneumonia, UTI, pyelonephritis, poor nutrition, dehydration , electrolyte disturbance, and hypoglycemia. This is a 61-year-old male who presents to the ED with a chief complaint of decreased alertness and low blood pressure. The patient is a poor historian and was unable to provide additional details. He did not appear to be in any distress. He is dialysis dependent renal failure patient. It was reported that the patient had dialysis today. 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 A thigh blood pressure was being used. Blood pressure is appear to be on the low and with blood pressures ranging from the 70s to 50 systolic. The patient did have a good distal perfusion in his upper extremities with pulse ox with good waveforms in the 98% range. Capillary refill is good. Radial pulses were palpable but for the blood pressure managed to be higher than reported. The patient reports he does not produce urine. For this reason fluid challenge was not overly aggressive. He was given about 500 mL during his stay. He was in no acute distress. He appears to be comfortable. also count was 14,000. Chest x-ray reveals a left retrocardiac pneumonia. CT scan of the brain was negative for acute disease. EKG shows a sinus rhythm at a rate of 90. Lactic acid was slightly elevated at 2.2. BUN is 29 and creatinine is 4.0. VBG was unremarkable. Acid- base status was normal. The patient will be seen by the hospitalist for further inpatient evaluation and care. He was given the IV fluid challenge as well as IV antibiotics. Medication Reconcilliation Current Medication List: was personally reviewed by me Blood Pressure Screening Patient's blood pressure: Low blood pressure Consults Time Called: [id number] Consulting Physician: Dr. Wilkins - [facility] [place] Returned Call: [phone] Discussed the patient's case. The patient will be evaluated for further treatment and disposition. Impression Primary Impression: PNA (pneumonia) Additional Impressions: Hypotension Dependence on renal dialysis Scribe Attestation The scribe's documentation has been prepared under my direction and personally reviewed by me in its entirety. I confirm that the note above accurately reflects all work, treatment, procedures, and medical decision making performed by me. Departure Information Dispostion Being Evaluated By Hospitalist Referrals Nick Ho (PCP) Patient Instructions My [facility] Problem Qualifiers
[2017-01-31] VITALS (43 sets, daily range): BP systolic 63–123; BP diastolic 40–90; PULSE 60–97; TEMP 36.6–37; O2SAT 82–97; Ht 172.7 cm; Wt 77.9 kg
--- NOTE | 2017-01-31 01:43 | Critical Care Consultation ---
Critical Care Consultation Date of Consultation: Jan 31, 2017. Attending Physician: Zuhair Wilkins M.D. Reason for Consultation: Hypotension History of Present Illness Parker Guthrie is a 61 yr old male who presented to the ED s/p dialysis with hypotension and reported mental status changes. Upon my examination the pt is alert and oriented to person, place, and situation. When asked for date he repeats his birthday. He is aware that it is summer. He is not a good historian and his history per him is limited. He states that he feels fine other than he had back pain previously that was a 10/10. He states he think he took ibuprofen for it, which has resolved. Pt had lactic acid of 2.2 and a procalcitonin > 20. His SBP has been 60's - 90's. Pt has a significant past medical history. which has caused him multiple admissions to [facility] and the ICU. Pt was transferred to the ICU for close monitoring of fluid status, possible vasoactives, and CVL placement. Pt received dialysis M, W, F through a perm cath in his right chest. 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 Per patient he has been receiving dialysis for 4 years and is anuric. Pts problem list is extensive including DM 2, ESRD, CHF, hypothyroidism, diabetic retinopathy, polyneuropathy, hx of c. diff, hx of DVT, CVA, and CAD. Pt denies malaise, head, or visual changes. He does state he feels feverish today and chilled now. He states he has had some coughing but can't provide a time frame to when the cough started or what it is like. He denies shortness of breathing or difficulty breathing. He has no chest pain/pressure, or awareness of tachyarrhythmia. He has had no change in bowel habits, but does state he is often constipated and stool is firm. He denies abd pain. He did state he had one bout of nausea and dry heaved in the ED. He did not vomit and felt better afterwards. Past Medical/Surgical History Medical Problems: Altered mental status Anemia Arrhythmia Bacteremia CAD (coronary artery disease) Congestive Heart Failure Nos Depression Diab W Oth Spec Manifest, Type Ii Or Unspec Type, Not Uncntr Diabetic retinopathy DM type 2 (diabetes mellitus, type 2) ESRD (end stage renal disease) on dialysis Fluency disorder following cerebrovascular accident History of Clostridium difficile colitis History of GI bleed History of methicillin resistant staphylococcus aureus (MRSA) History of non-ST elevation myocardial infarction (NSTEMI) Hyperkalemia hyperkalemia, ESRD, wrist fx Hyperlipidemia Nec/Nos Hypertension Nos Hypothyroidism Nos Migraine Morbid obesity Peritonitis Polyneuropathy in diabetes Proteinuria Social disinhibition Vitamin D deficiency Surgical Problems: Great toe amputation status H/O gastric bypass H/O total hip arthroplasty History of cholecystectomy History of colonoscopy with polypectomy History of left below knee amputation History of peritoneal dialysis catheter Bilateral Fistulas Cholecystectomy Family History FH: heart disease FATHER FHx: cancer FATHER Hypertension Social History Smoking Status: Never Smoker Alcohol Use: none Drug Use: none Marital Status: single Housing Status: lives alone Occupation Status: disabled Allergies Coded Allergies: No Known Allergies (Verified , `, 12/14/16) Home Medications Scheduled Apixaban (Eliquis), 5 MG PO Q12 Apixaban (Eliquis), 5 MG PO BID-W-F B-Complex W/ C & Folic Acid (Nephronex), 1 TAB PO DAILY B-Complex W/ C & Folic Acid (Nephronex), 1 TAB PO MWF Calcium Acetate (Phoslo 667 Mg), 3 CAP PO TID M-W-F Calcium Acetate (Phoslo 667 Mg), 3 CAP PO TID [id number] UD Escitalopram (Lexapro), 10 MG PO MWF Escitalopram (Lexapro), 10 MG PO 4XWK Finasteride (Proscar), 5 MG PO DAILY Fludrocortisone Acetate (Florinef), 0.1 MG PO DAILY Gabapentin (Neurontin), 400 MG PO UD Gabapentin (Neurontin), 400 MG PO TID UD Lactobacillus Acidophilus (Lactinex), 1 TAB PO BID M-W-F Lactobacillus Acidophilus (Lactinex), 1 TAB PO [id number] Latanoprost (Xalatan 0.005% Oph Katya), 1 DROP OPL HS Levothyroxine Sodium (Synthroid), 100 MCG PO DAILY Midodrine (Midodrine HCl), 2.5 MG PO UD Omeprazole (Prilosec), 20 MG PO MWF Omeprazole (Prilosec), 20 MG PO [id number] Sucralfate (Carafate), 1 GM PO BID M-W-F Sucralfate (Carafate), 1 GM PO BID 4XSWK Scheduled PRN Acetaminophen Tab (Tylenol), 650 MG PO Q6H PRN for MILD PAIN 1-4, FEVER>101 Bisacodyl (Dulcolax), 1 SUPP PA DAILY PRN for Constipation Oxycodone/Acetaminophen 5MG/325MG (Percocet 5MG/325MG), 1 TABLET PO Q4H PRN for Pain Polyethylene Glycol 3350 (Bulk (Polyethylene Glycol 3350), 17 GM PO DAILY PRN for Constipation Sodium Phosphate/Biphosphate (Fleet Enema), 1 EA PA UD PRN for Constipation Current Inpatient Medications Current Inpatient Medications Medications (Trade) Dose Ordered Sig/Rigoberto Route Start Time Stop Time Status Last Admin Dose Admin Acetaminophen (Tylenol Tab) 650 mg Q4H PRN PO 01/30/17 23:15 03/01/17 23:14 Morphine Sulfate (MoRPHine SULFATE INJ) 2 mg Q2H PRN IV 01/30/17 23:15 02/13/17 23:14 Bisacodyl (Dulcolax Supp) 10 mg DAILY PRN PA 01/30/17 23:30 03/01/17 23:29 Calcium Acetate (Phoslo Cap) 2,001 mg TIDM PO 01/31/17 07:15 03/02/17 07:59 Escitalopram Oxalate (Lexapro Tab) 10 mg DAILY PO 01/31/17 09:00 03/02/17 08:59 Finasteride (Proscar Tab) 5 mg DAILY PO 01/31/17 09:00 03/02/17 08:59 Fludrocortisone Acetate (Florinef Tab) 0.1 mg DAILY PO 01/31/17 09:00 03/02/17 08:59 Gabapentin (Neurontin Cap) 400 mg TID PO 01/31/17 09:00 03/02/17 08:59 Latanoprost (Xalatan Oph Soln) 1 drops HS OPL 01/31/17 21:00 03/02/17 20:59 Levothyroxine Sodium (Synthroid Tab) 100 mcg DAILYBB PO 01/31/17 06:00 03/02/17 06:59 Midodrine (Proamatine Tab) 2.5 mg MoWeFr@0700,1100,1500 PO 02/01/17 07:00 03/03/17 06:59 Oxycodone/ Acetaminophen (Percocet 5-325mg Tab) 1 tab Q4H PRN PO 01/30/17 23:30 02/13/17 23:29 Sucralfate (Carafate Tab) 1 gm BID PO 01/31/17 09:00 03/02/17 08:59 Apixaban (Eliquis Tab) 5 mg MoWeFr@0900,2100 PO 02/01/17 09:00 03/03/17 08:59 Vitamin B Complex/ Vit C/Folic Acid (Nephrocaps) 1 cap DAILY PO 01/31/17 09:00 03/02/17 08:59 Pantoprazole Sodium (Protonix Tab) 40 mg SuTuThSa@1200 PO 01/31/17 12:00 03/02/17 11:59 Review of Systems 12 systems reviewed and negative other than previously mentioned in the HPI. Physical Exam Date Time Temp Pulse Resp B/P (MAP) Pulse Ox O2 Delivery O2 Flow Rate FiO2 01/31/17 00:30 37.0 97 20 72/59 94 Nasal Cannula 2.0 01/31/17 00:15 77 14 63/43 96 01/30/17 23:26 72 19 93 01/30/17 23:21 72/47 01/30/17 23:16 73 98 01/30/17 23:15 71/41 01/30/17 23:11 53/43 01/30/17 23:06 75 14 96 01/30/17 23:01 68/42 01/30/17 22:56 75 95 01/30/17 22:51 69/43 01/30/17 22:46 73 96 01/30/17 22:41 79/49 01/30/17 22:40 75 13 96 01/30/17 22:31 72/48 01/30/17 22:30 69 01/30/17 22:30 71 14 97 01/30/17 22:21 72/47 01/30/17 22:20 75 13 92 01/30/17 22:11 65/47 01/30/17 22:10 75 14 94 01/30/17 22:05 77 14 94 01/30/17 22:01 61/40 01/30/17 21:55 77 18 95 01/30/17 21:51 64/40 01/30/17 21:46 97 Nasal Cannula 2.0 01/30/17 21:45 79 15 97 01/30/17 21:41 59/41 01/30/17 21:35 75 13 01/30/17 21:30 70/43 01/30/17 21:27 78 13 95 01/30/17 21:24 59/32 01/30/17 21:21 59/34 01/30/17 21:17 80 17 94 01/30/17 21:11 79/39 01/30/17 21:09 79/42 01/30/17 21:07 79 15 94 01/30/17 21:01 56/39 01/30/17 20:57 81 16 95 01/30/17 20:52 55/37 01/30/17 20:51 57/38 01/30/17 20:47 79 12 96 01/30/17 20:42 79 15 96 01/30/17 20:41 83/54 01/30/17 20:32 83 17 95 01/30/17 20:31 79/57 01/30/17 20:22 84 13 95 01/30/17 20:17 84 13 95 01/30/17 20:11 76/48 01/30/17 19:37 84 16 01/30/17 19:31 /48 01/30/17 19:27 86 14 01/30/17 19:22 80/34 01/30/17 19:17 89 17 01/30/17 19:12 61/35 01/30/17 19:11 97 Nasal Cannula 4.0 01/30/17 19:10 97 Nasal Cannula 4.0 01/30/17 19:10 88 14 01/30/17 19:02 78/49 01/30/17 19:00 89 14 01/30/17 18:51 36.8 92 17 62/40 88 Room Air 01/30/17 18:51 94/78 01/30/17 18:50 89 14 97 01/30/17 18:49 73/40 01/30/17 18:43 63/45 01/30/17 18:42 75/32 01/30/17 18:38 62/40 01/30/17 18:35 90 Vital Signs - as noted Laboratory Data - as noted Physical Exam: General - NAD, Resting in bed Eyes - PERRL, EOMI No icterus, gaze conjugate ENT - Mucosa moist, no lesions or candidiasis, multiple broken teeth and cavities noted Neck - Supple, trachea midline, no masses or lymphadenopathy, no JVD or bruits Lungs - No paradoxical chest wall movement, clear to diminished auscultation bilaterally, Minimal rales to right lower lobe; no wheezes or rhonchi Heart - Reg rate and rhythm, No murmur, rubs, clicks, or gallops appreciated Abdomen - BS present, no bruits noted, tympanic to percussion, soft, nontender, nondistended, no organomegaly, obese Extremities - No edema, pedal pulses intact, lower left extremity surgically removed below the knee Neuro - A&OX3 Strength extremities equal and appropriate bilaterally Reflexes: Normal and equal CN:PERRL, EOMI, no facial asymmetry, uvula/tongue midline Laboratory Results Last 24 Hours Test 01/30/17 18:44 01/30/17 19:00 01/30/17 19:34 01/30/17 20:27 Bedside Glucose 140 mg/dl White Blood Count 14.35 K/uL Red Blood Count 4.11 M/uL Hemoglobin 12.1 g/dL Hematocrit 38.9 % Mean Corpuscular Volume 94.6 fL Mean Corpuscular Hemoglobin 29.4 pg Mean Corpuscular Hemoglobin Concent 31.1 g/dl Platelet Count 194 K/uL Mean Platelet Volume 10.4 fL Neutrophils (%) (Auto) 93.8 % Lymphocytes (%) (Auto) 2.8 % Monocytes (%) (Auto) 2.9 % Eosinophils (%) (Auto) 0.1 % Basophils (%) (Auto) 0.1 % Neutrophils # (Auto) 13.47 K/uL Lymphocytes # (Auto) 0.40 K/uL Monocytes # (Auto) 0.42 K/uL Eosinophils # (Auto) 0.01 K/uL Basophils # (Auto) 0.01 K/uL RDW Standard Deviation 54.2 fL RDW Coefficient of Variation 16.0 % Immature Granulocyte % (Auto) 0.3 % Immature Granulocyte # (Auto) 0.04 K/uL Prothrombin Time 10.9 SECONDS Prothromb Time International Ratio 1.0 Activated Partial Thromboplast Time 35.0 SECONDS Partial Thromboplastin Ratio 1.3 Sodium Level 132 mmol/L Potassium Level 4.5 mmol/L Chloride Level 94 mmol/L Carbon Dioxide Level 29 mmol/L Anion Gap 9.0 mmol/L Blood Urea Nitrogen 29 mg/dl Creatinine 4.00 mg/dl Est Creatinine Clear Calc Drug Dose 19.2 ml/min Estimated GFR () 17.8 Estimated GFR (Non- 15.3 BUN/Creatinine Ratio 7.3 Random Glucose 136 mg/dl Lactic Acid Level 2.2 mmol/L Calcium Level 9.3 mg/dl Total Bilirubin 0.6 mg/dl Direct Bilirubin 0.2 mg/dl Aspartate Amino Transf (AST/SGOT) 22 U/L Alanine Aminotransferase (ALT/SGPT) 31 U/L Alkaline Phosphatase 81 U/L Ammonia 26.0 umol/L Total Creatine Kinase 65 U/L Creatine Kinase MB < 0.5 ng/ml Creatine Kinase MB Ratio Troponin I 0.020 ng/ml Total Protein 8.3 gm/dl Albumin 3.3 gm/dl Lipase 78 U/L Procalcitonin 20.21 ng/ml Thyroid Stimulating Hormone (TSH) 1.130 uIu/ml Acetaminophen Level < 2 ug/ml Ethyl Alcohol mg/dL < 3.0 mg/dl Bedside Hemoglobin 12.6 g/dl Bedside Hematocrit 37 % Bedside Blood Gas pH (LAB) 7.38 Bedside Blood Gas pCO2 (LAB) 50 mmHg Bedside Blood Gas pO2 (LAB) 34 mmHg Bedside Blood Gas HCO3 (LAB) 29 meq/L Bedside Blood Gas Total CO2 31 mEq/l Bedside Blood Gas Base Excess (LAB) 4.0 meq/L Bedside Blood Gas O2 Saturation 63.0 % Bedside Sodium 132 mEq/L Bedside Potassium 4.3 mEq/L Diagnostic Results CHEST ONE VIEW PORTABLE CLINICAL HISTORY: 61 years-old Male presenting with Evaluate Fever/Sepsis. TECHNIQUE: Portable semiupright AP view of the chest was obtained. COMPARISON: 07/22/2016. FINDINGS: The patient is BUSTAMANTE rotated. Tunneled right subclavian dialysis catheter terminates in the superior cavoatrial junction. Slight prominence of the cardiac silhouette, possibly in part due to mildly low lung volumes and hypoventilatory changes. Left retrocardiac opacity. No large effusion or pneumothorax. Degenerative changes of the spine. Upper abdomen normal. IMPRESSION: 1. Mildly low lung volumes with hypoventilatory changes. 2. Suggestion of left retrocardiac opacity, which could represent focal consolidation/pneumonia. This could be confirmed with PA and lateral chest x-ray if clinically warranted. Electronically signed by: Eliot Doty M.D. 01/30/2017 7:23 PM Dictated Date/Time: 01/30/2017 7:21 PM HEAD WITHOUT CONTRAST (CT) CLINICAL HISTORY: 61 years-old Male presenting with Evaluate Fever/Sepsis. TECHNIQUE: Multidetector CT imaging of the head was performed without the use of intravenous contrast. IV contrast: None. A dose lowering technique was used consistent with the principles of ALARA (as low as reasonably achievable). COMPARISON: 04/11/2015. CT DOSE (mGy.cm): The estimated cumulative dose is 614.27 mGy.cm. FINDINGS: Lab Assistant topogram: Unremarkable. Ventricles and sulci normal in size. Periventricular and subcortical white matter hypoattenuation, nonspecific but likely indicative of chronic small vessel ischemic change. Old infarcts in the right occipital lobe, left parietal lobe, and right cerebellar hemisphere unchanged from prior. No mass effect or midline shift. No hemorrhage or acute territorial infarct. No extra-axial fluid collection. Paranasal sinuses and mastoid air cells clear. Calvarium intact. IMPRESSION: 1. No acute intracranial pathology. 2. Multifocal old infarcts unchanged from prior. Electronically signed by: Eliot Doty M.D. 01/30/2017 8:14 PM Dictated Date/Time: 01/30/2017 8:11 PM Assessment & Plan (1) DM type 2 (diabetes mellitus, type 2) (2) Hyperlipidemia Nec/Nos (3) Morbid obesity (4) ESRD (end stage renal disease) on dialysis (5) History of methicillin resistant staphylococcus aureus (MRSA) (6) Hypotension Reason Critically Ill: Patient is an 61-year-old male who is transferred to the ICU for hypotension following dialysis treatment for ESRD. PLAN: Neuro: * Pain is currently well controlled * Monitor for changes * Unknown Mental Status baseline, Oriented to person, place, and situation currently. * Monitor for neuro changes Resp: * Supplemental oxygen as required * Procalcitonin positive * Repeat CXR in AM * Continue Broad Spectrum coverage currently CV: * Hypotensive: due to ESRD pt can not received 30ml/kg per sepsis guidelines * Will monitor fluid status closely. Pt states baseline pressures in mid to high 90's. * Random Cortisol pendinmg IV Solu-Cortef Now * Holding on pressures currently as pressures continue to improve and MAP is running > 60s * Monitor on telemetry * Monitor QTc 2/2 Levaquin Fluids/Renal: * Limit fluid overload; pt given one 250mL bolus at 200mL/hr in ICU; improvement noted to pressures * ESRD Dialysis , , and Saturday. Continue home meds * Anuric * Monitor electrolytes and replace per protocol ID: * Continue Broad Spectrum Antibiotics: Monitor closely 2/2 dialysis and CrCl 19 * Levaquin 500mg 1st dose, followed by 250 every other day * Zosyn: Pharmacy Consult * Blood cultures from PIV, CVL, and Perm Cath pending * Lactic Acid 2.2 & trending down * WBC elevated: 14.35 GI/Nutrition: * Currently NPO except meds * Advance diet if hypotension resolves * Continue Protonix Heme: * Known history of anemia * Currently 12, improved from prior visits of 10 * Continue home Eliquis Endocrine: * Accu-Checks per protocol, started insulin infusion for 2 blood sugars greater than 180 * Diagnosed DM2, no home insulin use; Monitor Blood Sugars AC & HS * Levothyroxine: 100mcg Access: 22g PIV, Perm Cath Right Chest, Triple Lumen Catheter LIJ CCT: 50 Minutes; This time is exclusive of all separately billable procedures. Thank you for involving us in the care of this patient. Please refer to Dr. Everton Costa addendum for further recommendations. I have personally evaluated and examined this patient. I agree with assessment and plan of Espinoza Hatfield PA-C. placed left IJ IVC, will check random cortisol given prior steroid responsiveness. concern for infection given elevated procalcitonin and prior similar presentation without elevation in procal and final dx was steroid dependancy.
--- NOTE | 2017-01-31 01:45 | Procedure Note ---
Procedure Note Procedure Date Jan 31, 2017. Central Line Procedure time out: side/site verified, patient ID confirmed, sterile procedure used Consent obtained: written (Dr. Zuhair Wilkins Obtained) Time of procedure: 01:00 Performed by: physician coordinator of rehabilitation services Indications: poor venous access, central drug admin., CVP monitoring Prep: chlorhexadine prep Anesthesia: local injection, lidocaine 1% without epi Volume anesthetic (ml's): 5 Central line lumen: Failed Attempt Central line location: internal jugular (L) Additional details: percutaneous placement, ultrasound guidance, Selinger technique used CXR: no pneumothorax Complications: other (Met increased resistance with guidewire and did not continue advancement) Patient tolerated procedure: well Post-procedure vital signs: reviewed and stable Comments: Consent was obtained prior to procedure. Indication, risks, and benefits were explained at length. Procedure: Procedure was performed under strict sterile field in O.R. fashion. The left neck and chest were cleaned with chloroprep scrub and the pt was draped in sterile fashion. The internal jugular vein was identified using ultrasound. After anesthetizing the area with 5cc of lidocaine, venous blood was withdrawn after accessing the vein under ultrasound guidance. The syringe was removed and a guide wire was advanced into the introducer needle which met resistance. Guide wire was removed intact along with the introducer needle. Pressure was held on the site and pressure dressing applied. No hematoma was noted. CXR noted no pneumothorax. Pt vital signs were unchanged.
[2017-01-31] MEDS ORDERED: HEPARIN SOD (PORCINE) 1000 UNIT/ML 10 ML VIAL ONE (03:08)
--- NOTE | 2017-01-31 03:14 | Procedure Note ---
Procedure Note Procedure Date Jan 31, 2017. Central Line Procedure time out: side/site verified, patient ID confirmed, sterile procedure used Consent obtained: written, verbal Time of procedure: 02:30 Performed by: attending Indications: poor venous access, central drug admin. Contraindications: coagulopathy (apixiban usage) Prep: chlorhexadine prep, sterile drape, sterile procedures used Anesthesia: local injection, lidocaine 1% without epi Volume anesthetic (ml's): 4 Central line lumen: triple Central line location: internal jugular (L) Additional details: ultrasound guidance, Selinger technique used, line sutured , good blood return Complications: none Patient tolerated procedure: well, other (blood cultures obtained from Left IJ proximal port) Post-procedure vital signs: reviewed and stable Comments: Critical Care Medicine Point of Care Bedside Ultrasound Procedure: Procedural Ultrasound Procedure Date: [] Indication: [] Attending: Josiah Costa DO Resident/Physician Parts Counter Salesperson: Adrianne Hatfield Artery AND Vein visualized: y Compressible Vein: y Guidewire or Short Catheter seen in vein prior to dilation: y Line confirmed in Vein with ultrasound: y Lung Sliding on side of attempt (if applicable): y If no lung sliding or not obtained has CXR been ordered: y Impression: successful Left internal jugular vein CVL Images obtained are saved for permanent record
[2017-01-31] MEDS ORDERED: SODIUM CHLORIDE 0.9% 1000ML 1,000 ML IV SCH (03:45)
[2017-01-31] MEDS ORDERED: HYDROCORTISONE IV 50 MG in SYRINGE 0 ML IV STA (03:46)
[2017-01-31 04:01] LABS: VEN BLOOD GAS BASE EXCESS 2.4 mEq/L; VENOUS BLOOD GAS PCO2 51 mmHg (38.0-50.0); VENOUS BLOOD GAS PO2 29 mmHg
[2017-01-31 04:03] LABS: VEN BLD GAS O2 SATURATION < 60.0 %
[2017-01-31 04:27] LABS: BASO % 0.2 %; BASO ABS # 0.02 K/uL (0-0.2); COMPLETE YES; EOS % 0.2 %; HEMATOCRIT 35.9 % (42-52); IG% 0.4 %; LYMPH % 2.6 %; LYMPH ABS # 0.22 K/uL (1.2-3.4); MEAN CELL VOLUME 94.2 fL (80-100); MEAN CORPUSCULAR HEMOGLOBIN 29.7 pg (25-34); MEAN CORPUSCULAR HGB CONC 31.5 g/dl (32-36); MONO % 6.7 %; NEUT % 89.9 %; PLATELET COUNT 159 K/uL (130-400); RED BLOOD COUNT 3.81 M/uL (4.7-6.1); WHITE BLOOD COUNT 8.54 K/uL (4.8-10.8)
[2017-01-31 04:36] LABS: CALCIUM 8.2 mg/dl (8.5-10.1); CREATININE 4.4 mg/dl (0.60-1.40); MAGNESIUM 2.1 mg/dl (1.8-2.4); POTASSIUM 4.6 mmol/L (3.5-5.1)
[2017-01-31] MEDS ORDERED: PIPERACILL/TAZOBAC CONSULT ACTIVE PRN (04:45)
[2017-01-31] MEDS: PIPERACILL/TAZOBAC IV 3.375 GM in DEXTROSE 5% 100ML 100 ML IV SCH ×2 (05:58→17:50)
[2017-01-31] MEDS: LEVOTHYROXINE 100 MCG TAB PO SCH (05:59)
--- NOTE | 2017-01-31 07:28 | DIAGNOSTIC IMAGING REPORT ---
CHEST ONE VIEW PORTABLE CLINICAL HISTORY: PNM COMPARISON STUDY: Chest radiograph January 31, 2017 3:14 AM. FINDINGS: Skinfolds project over the chest. There is no pneumothorax or pleural effusion. There may be mild bibasilar atelectasis. There is no evidence of pulmonary edema. Cardiac size is normal. A right subclavian dual-lumen catheter remains in place. A left internal jugular central line is in place. Tip is slightly coiled. IMPRESSION: 1. Left internal jugular central line in place. Tip of catheter slightly coiled. 2. No acute cardiopulmonary findings. Electronically signed by: Micha Dial M.D. 01/31/2017 7:26 AM Dictated Date/Time: 01/31/2017 7:20 AM
--- NOTE | 2017-01-31 07:34 | DIAGNOSTIC IMAGING REPORT ---
CHEST ONE VIEW PORTABLE HISTORY: Status post central line placement. COMPARISON: Chest 01/30/2017. FINDINGS: Interval placement of left jugular central venous catheter. This does not cross over the midline. The tip curve to the left. No evidence for a left-sided SVC on a [address] Therefore, this catheter is considered to be malpositioned could be in a venous branch or arterial structure. This should be removed. No pneumothorax. No pleural effusions. Right subclavian dual-lumen catheter terminates in the SVC. The heart is normal in size. IMPRESSION: Interval placement of left jugular central venous catheter. This does not cross over the midline. The tip curves to the left. No evidence for a left-sided SVC on a [address] Therefore, this catheter is considered to be malpositioned and could be in a venous branch or arterial structure. This should be removed. Electronically signed by: Emilio Le M.D. 01/31/2017 7:32 AM Dictated Date/Time: 01/31/2017 7:27 AM
[2017-01-31] MEDS: CALCIUM ACETATE 667MG GELCAP PO SCH ×3 (08:01→16:40)
--- NOTE | 2017-01-31 08:09 | NEPHROLOGY CONSULTATION ---
DATE OF CONSULTATION: 01/31/2017 DATE OF CONSULTATION: 01/31/2017 ATTENDING OF RECORD: Dr. Wilkins. REASON FOR CONSULTATION: End-stage renal disease. HISTORY OF PRESENT ILLNESS: This is a 61-year-old male who dialyzes at the [facility] on Mondays, Wednesdays, and Fridays, does have significant vascular disease and is tunneled dialysis catheter dependent, who has underlying heart disease and chronically low blood pressures. Did suffer from recurrent C. diff, but has been doing much better at the senior living. The patient became confused while on dialysis removing about 3 liters of fluid. There was a questionable infiltrate on the chest x-ray and blood pressures were in the 60s-70s. The patient did receive some IV fluids and was started on Levaquin and Zosyn. This morning blood pressures are in the 80s. The patient mentating well. The patient cannot recall the events from yesterday, but appears to be at baseline mental status with no specific complaints. PAST MEDICAL HISTORY: End-stage renal disease, peripheral vascular disease, hypertension, diabetes, hypothyroidism, history of stroke, left BKA, glaucoma, hyperlipidemia. PAST SURGICAL HISTORY: Left BKA, gastric bypass surgery, multiple fistula graft, PD catheter, tunneled dialysis catheter, now tunneled dialysis catheter dependent, cholecystectomy. FAMILY HISTORY: Heart disease. SOCIAL HISTORY: No smoking. No drugs, no alcohol. Lives in senior living. HOME MEDICATIONS: Significant for PhosLo, Eliquis, Florinef. CURRENT MEDICATIONS: Levaquin 500 mg IV q. 48 hours, Eliquis 5 mg 3 days a week, Midodrine 2.5 mg p.o. Saturday, Saturday, Saturday, Lexapro 10 mg daily, Florinef 0.1 mg daily, Neurontin 400 mg p.o. t.i.d., Nephrocaps daily, PhosLo 2001 mg p.o. t.i.d., Synthroid 100 mcg daily, Zosyn 3.375 IV q. 12. REVIEW OF SYSTEMS: No headaches, no blurry vision, no dysphagia, no cough, no shortness of breath, no chest pain, no nausea or vomiting, no abdominal pain, no diarrhea, no constipation, no dysuria, no rash or itching. The patient asymptomatic and feels well with no specific complaints. PHYSICAL EXAMINATION: VITAL SIGNS: Temperature 36.8, pulse 69, respiratory rate 14, blood pressure is 83/58, satting 97% on 2 liters. Generally awake, alert, oriented x3. EYES: No scleral icterus. EARS, NOSE, THROAT: Moist mucous membranes. NECK: Supple. PULMONARY: Clear to auscultation. CARDIAC: Regular rate and rhythm. ABDOMEN: Bowel sounds positive, soft, nontender. EXTREMITIES: BKA. No edema. NEUROLOGICALLY: Nonfocal. DERMATOLOGY: No open wounds noted. LABORATORY DATA: White count 8, H&H 11 and 35. Platelet count 159. Sodium level 132, potassium 4.6, chloride is 95, bicarb 30, BUN is 35, creatinine is 4.4, glucose 106, calcium is 8.2, phosphorus 4, mag is 2.1, albumin is 2.9. Lactic acid is normal at 1.1. Random cortisol is pending. INR is 1. IMAGING: Chest x-ray shows left retrocardiac opacity, may represent a focal consolidation of pneumonia, mildly low lung volumes. ASSESSMENT AND PLAN: 1. End-stage renal disease. No indication for dialysis today. Will continue dialysis Saturday, Saturday, Saturday. Will adjust patient's dry weight at the outpatient dialysis unit. The patient has been eating more and may need his dry weight increased. Does not appear to have an active infection at this time. Currently on antibiotics for possible pneumonia, but no cough, no fevers. White count has improved. The patient during previous admissions when presenting like this did respond favorably to steroids and would consider a small trial of stress dose steroids; however will defer to critical care. 2. Overall plan on dialysis tomorrow with minimal fluid removal. Blood pressures tend to be low but appears to be mentating better and clinically improved. Appreciate consultation. HECTOR
[2017-01-31] MEDS: ESCITALOPRAM OXALATE 10 MG TAB PO SCH (08:51)
[2017-01-31] MEDS: NEPHROCAPS PO SCH (08:51)
[2017-01-31] MEDS: SUCRALFATE 1 GM TAB PO SCH (08:51)
[2017-01-31] MEDS: GABAPENTIN 400 MG CAP PO SCH ×2 (08:52→14:38)
[2017-01-31] MEDS: FINASTERIDE 5 MG TAB PO SCH (08:52)
[2017-01-31] MEDS ORDERED: FLUDROCORTISONE ACETATE 0.1 MG TAB PO SCH (09:00)
[2017-01-31] MEDS ORDERED: FLUDROCORTISONE ACETATE 0.1 MG TAB PO ONE (11:00)
[2017-01-31] MEDS: APIXABAN 2.5 MG TAB PO SCH (11:05)
--- NOTE | 2017-01-31 11:53 | DIAGNOSTIC IMAGING REPORT ---
(CHEST) THORAX WITHOUT CT DOSE: 529.75 mGy.cm HISTORY: Abnormal central line placement. Chest CT 01/02/2016. ?pneumonia eval TECHNIQUE: Multiaxial CT images of the chest were performed without contrast. A dose lowering technique was utilized adhering to the principles of ALARA. COMPARISON: Chest CT 01/02/2016. FINDINGS: There is a left internal jugular vein central venous catheter. The tip does not extend into the brachiocephalic vein and instead extends posteriorly into the left superior intercostal vein. There is a right subclavian central venous catheter which terminates in the SVC. No mediastinal or hilar lymphadenopathy. Normal caliber thoracic aorta. Trace pericardial fluid. Mitral annulus and coronary artery calcifications. Small hiatus hernia. Prior gastric bypass. Cortical calcification within the right kidney. Cholecystectomy. Normal liver, spleen, and adrenal glands. Left-sided brachial graft are noted. Old, healed medial left clavicle fracture. The trachea demonstrates a small amount of mucoid material. No pneumothorax. A few scattered punctate calcified granulomas. No evidence for pulmonary edema. Bibasilar linear densities likely represent subsegmental atelectasis. IMPRESSION: 1. Bibasilar linear densities. This favors subsegmental atelectasis. 2. Small amount of mucoid material within the distal trachea. 3. The left internal jugular central venous catheter is malpositioned and located within the left superior intercostal vein. This should be removed. Of note, the left internal jugular vein may have demonstrated chronic thrombus on the [address] Therefore, this could result in the malpositioning of the central venous catheter. 4. Trace pericardial effusion. 5. Small hiatus hernia. Electronically signed by: Emilio Le M.D. 01/31/2017 11:51 AM Dictated Date/Time: 01/31/2017 11:26 AM
[2017-01-31] MEDS ORDERED: PANTOprazole SOD 40 MG TAB PO SCH (12:00)
--- NOTE | 2017-01-31 15:45 | Progress Note ---
Subjective Date of Service: Jan 31, 2017. Subjective Pt evaluation today including: conversation w/ patient, physical exam, chart review, lab review, review of studies, review of inpatient medication list Resting comfortably in bed Alert and oriented to name and place No discomfort No acute events overnight Problem List Medical Problems: (1) Abdominal pain Status: Acute (2) C. difficile colitis Status: Acute (3) Caregiver has difficulty performing caretaking Status: Acute (4) Colitis Status: Acute (5) Dehydration Status: Acute (6) Dependence on renal dialysis Status: Acute (7) Failure to thrive Status: Acute (8) Fever Status: Acute (9) Hypotension Status: Acute (10) Infection associated with peritoneal dialysis catheter Status: Acute (11) Lactic acidosis Status: Acute (12) Periumbilical abdominal pain Status: Acute (13) PNA (pneumonia) Status: Acute (14) Pneumonia involving right lung Status: Acute (15) Sepsis Status: Acute (16) Septic shock Status: Acute (17) Thoracic back pain Status: Acute (18) Vomiting Status: Acute (19) Weakness Status: Acute Review of Systems Constitutional: No fever, No chills, No sweats, No weakness Eyes: No worsening of vision, No eye pain, No redness, No discharge ENT: No hearing loss, No unusual epistaxis, No nasal symptoms, No sore throat Respiratory: No cough, No sputum, No wheezing, No shortness of breath Cardiac: No chest pain, No orthopnea, No PND, No edema Abdomen: No pain, No nausea, No vomiting, No diarrhea, No constipation Musculoskeletal: No joint pain, No muscle pain, No swelling, No calf pain Male : No dysuria, No urinary frequency, No incontinence Neurologic: No memory loss, No paralysis, No weakness, No numbness/tingling Psychiatric: No depression symptoms, No anhedonism, No anxiety, No insomnia Heme: No abnormal bleeding/bruising, No clotting problems, No swollen lymph nodes, No night sweats Skin: No rash, No itch Objective Vital Signs Date Time Temp Pulse Resp B/P (MAP) Pulse Ox O2 Delivery O2 Flow Rate FiO2 01/31/17 13:07 72 16 86/57 (67) 95 Nasal Cannula 2.0 01/31/17 11:30 37.0 69 16 96/69 (78) 95 Nasal Cannula 2.0 01/31/17 11:30 Nasal Cannula 2.0 01/31/17 09:41 69 13 71/50 (54) 96 01/31/17 09:30 36.8 69 16 84/40 (55) 95 Nasal Cannula 2.0 01/31/17 09:01 65 9 84/40 (57) 91 01/31/17 09:00 67 12 82 01/31/17 08:01 70 12 115/70 (80) 01/31/17 08:00 71 24 01/31/17 07:50 Nasal Cannula 2.0 01/31/17 07:31 65 18 94/58 (73) 97 01/31/17 07:30 36.8 65 16 94/57 (69) 95 Nasal Cannula 2.0 01/31/17 07:01 69 19 88/49 (61) 96 01/31/17 07:00 69 21 96 01/31/17 06:00 36.8 69 14 83/58 (66) 97 Nasal Cannula 2.0 01/31/17 04:00 94 Nasal Cannula 2.0 01/31/17 04:00 36.9 80 12 88/43 (58) 96 Nasal Cannula 2.0 01/31/17 03:30 80 15 100/65 (77) 94 Nasal Cannula 2.0 01/31/17 03:00 79 14 78/66 (70) Nasal Cannula 2.0 01/31/17 02:30 82 20 74/50 (58) Nasal Cannula 2.0 01/31/17 01:57 77 18 99/78 (85) Nasal Cannula 2.0 01/31/17 01:30 75 82/44 (57) Nasal Cannula 2.0 01/31/17 01:00 77 87/59 (68) 94 Nasal Cannula 2.0 01/31/17 00:30 37.0 97 20 72/59 94 Nasal Cannula 2.0 01/31/17 00:29 81 24 72/59 (63) Nasal Cannula 2.0 01/31/17 00:15 77 14 63/43 96 01/31/17 00:11 78 10 63/43 (50) 96 Nasal Cannula 2.0 01/31/17 00:01 78 12 63/43 (50) 96 Nasal Cannula 01/30/17 23:26 72 19 93 01/30/17 23:21 72/47 01/30/17 23:16 73 98 8/30/17 23:15 71/41 01/30/17 23:11 53/43 01/30/17 23:06 75 14 96 01/30/17 23:01 68/42 01/30/17 22:56 75 95 01/30/17 22:51 69/43 01/30/17 22:46 73 96 01/30/17 22:41 79/49 01/30/17 22:40 75 13 96 01/30/17 22:31 72/48 01/30/17 22:30 69 01/30/17 22:30 71 14 97 01/30/17 22:21 72/47 01/30/17 22:20 75 13 92 01/30/17 22:11 65/47 01/30/17 22:10 75 14 94 01/30/17 22:05 77 14 94 01/30/17 22:01 61/40 01/30/17 21:55 77 18 95 01/30/17 21:51 64/40 01/30/17 21:46 97 Nasal Cannula 2.0 01/30/17 21:45 79 15 97 01/30/17 21:41 59/41 01/30/17 21:35 75 13 01/30/17 21:30 70/43 01/30/17 21:27 78 13 95 01/30/17 21:24 59/32 01/30/17 21:21 59/34 01/30/17 21:17 80 17 94 01/30/17 21:11 79/39 01/30/17 21:09 79/42 01/30/17 21:07 79 15 94 01/30/17 21:01 56/39 01/30/17 20:57 81 16 95 01/30/17 20:52 55/37 01/30/17 20:51 57/38 01/30/17 20:47 79 12 96 01/30/17 20:42 79 15 96 01/30/17 20:41 83/54 01/30/17 20:32 83 17 95 01/30/17 20:31 79/57 01/30/17 20:22 84 13 95 01/30/17 20:17 84 13 95 01/30/17 20:11 76/48 01/30/17 19:37 84 16 01/30/17 19:31 /48 01/30/17 19:27 86 14 01/30/17 19:22 80/34 01/30/17 19:17 89 17 01/30/17 19:12 61/35 01/30/17 19:11 97 Nasal Cannula 4.0 01/30/17 19:10 97 Nasal Cannula 4.0 01/30/17 19:10 88 14 01/30/17 19:02 78/49 01/30/17 19:00 89 14 01/30/17 18:51 36.8 92 17 62/40 88 Room Air 01/30/17 18:51 94/78 01/30/17 18:50 89 14 97 01/30/17 18:49 73/40 01/30/17 18:43 63/45 01/30/17 18:42 75/32 01/30/17 18:38 62/40 01/30/17 18:35 90 Physical Exam General Appearance: WD/WN, no apparent distress Eyes: normal inspection, PERRL, EOMI, sclerae normal Neck: supple, no adenopathy, thyroid normal, no JVD Respiratory/Chest: chest non-tender, lungs clear, normal breath sounds, no respiratory distress Cardiovascular: regular rate, rhythm, no edema, no gallop, no JVD Abdomen: normal bowel sounds, non tender, soft, no organomegaly Extremities: normal range of motion, non-tender, normal inspection, no pedal edema Neurologic/Psychiatric: no motor/sensory deficits, alert, normal mood/affect, oriented x 3 Laboratory Results Last 24 Hours Test 01/30/17 18:44 01/30/17 19:00 01/30/17 19:34 01/30/17 20:27 Bedside Glucose 140 mg/dl White Blood Count 14.35 K/uL Red Blood Count 4.11 M/uL Hemoglobin 12.1 g/dL Hematocrit 38.9 % Mean Corpuscular Volume 94.6 fL Mean Corpuscular Hemoglobin 29.4 pg Mean Corpuscular Hemoglobin Concent 31.1 g/dl Platelet Count 194 K/uL Mean Platelet Volume 10.4 fL Neutrophils (%) (Auto) 93.8 % Lymphocytes (%) (Auto) 2.8 % Monocytes (%) (Auto) 2.9 % Eosinophils (%) (Auto) 0.1 % Basophils (%) (Auto) 0.1 % Neutrophils # (Auto) 13.47 K/uL Lymphocytes # (Auto) 0.40 K/uL Monocytes # (Auto) 0.42 K/uL Eosinophils # (Auto) 0.01 K/uL Basophils # (Auto) 0.01 K/uL RDW Standard Deviation 54.2 fL RDW Coefficient of Variation 16.0 % Immature Granulocyte % (Auto) 0.3 % Immature Granulocyte # (Auto) 0.04 K/uL Prothrombin Time 10.9 SECONDS Prothromb Time International Ratio 1.0 Activated Partial Thromboplast Time 35.0 SECONDS Partial Thromboplastin Ratio 1.3 Sodium Level 132 mmol/L Potassium Level 4.5 mmol/L Chloride Level 94 mmol/L Carbon Dioxide Level 29 mmol/L Anion Gap 9.0 mmol/L Blood Urea Nitrogen 29 mg/dl Creatinine 4.00 mg/dl Est Creatinine Clear Calc Drug Dose 19.2 ml/min Estimated GFR () 17.8 Estimated GFR (Non- 15.3 BUN/Creatinine Ratio 7.3 Random Glucose 136 mg/dl Lactic Acid Level 2.2 mmol/L Calcium Level 9.3 mg/dl Total Bilirubin 0.6 mg/dl Direct Bilirubin 0.2 mg/dl Aspartate Amino Transf (AST/SGOT) 22 U/L Alanine Aminotransferase (ALT/SGPT) 31 U/L Alkaline Phosphatase 81 U/L Ammonia 26.0 umol/L Total Creatine Kinase 65 U/L Creatine Kinase MB < 0.5 ng/ml Creatine Kinase MB Ratio Troponin I 0.020 ng/ml Total Protein 8.3 gm/dl Albumin 3.3 gm/dl Lipase 78 U/L Procalcitonin 20.21 ng/ml Thyroid Stimulating Hormone (TSH) 1.130 uIu/ml Acetaminophen Level < 2 ug/ml Ethyl Alcohol mg/dL < 3.0 mg/dl Bedside Hemoglobin 12.6 g/dl Bedside Hematocrit 37 % Bedside Blood Gas pH (LAB) 7.38 Bedside Blood Gas pCO2 (LAB) 50 mmHg Bedside Blood Gas pO2 (LAB) 34 mmHg Bedside Blood Gas HCO3 (LAB) 29 meq/L Bedside Blood Gas Total CO2 31 mEq/l Bedside Blood Gas Base Excess (LAB) 4.0 meq/L Bedside Blood Gas O2 Saturation 63.0 % Bedside Sodium 132 mEq/L Bedside Potassium 4.3 mEq/L Test 01/31/17 03:27 01/31/17 10:59 01/31/17 12:58 White Blood Count 8.54 K/uL Red Blood Count 3.81 M/uL Hemoglobin 11.3 g/dL Hematocrit 35.9 % Mean Corpuscular Volume 94.2 fL Mean Corpuscular Hemoglobin 29.7 pg Mean Corpuscular Hemoglobin Concent 31.5 g/dl Platelet Count 159 K/uL Mean Platelet Volume 11.0 fL Neutrophils (%) (Auto) 89.9 % Lymphocytes (%) (Auto) 2.6 % Monocytes (%) (Auto) 6.7 % Eosinophils (%) (Auto) 0.2 % Basophils (%) (Auto) 0.2 % Neutrophils # (Auto) 7.68 K/uL Lymphocytes # (Auto) 0.22 K/uL Monocytes # (Auto) 0.57 K/uL Eosinophils # (Auto) 0.02 K/uL Basophils # (Auto) 0.02 K/uL RDW Standard Deviation 55.2 fL RDW Coefficient of Variation 16.2 % Immature Granulocyte % (Auto) 0.4 % Immature Granulocyte # (Auto) 0.03 K/uL Nucleated RBC Absolute Count (auto) 0.00 K/uL Nucleated Red Blood Cells % 0.0 % Venous Blood pH 7.36 Venous Blood Partial Pressure CO2 51 mmHg Venous Blood Partial Pressure O2 29 mmHg Venous Blood HCO3 29 mmol/L Venous Blood Oxygen Saturation < 60.0 % Venous Blood Base Excess 2.4 mEq/L Sodium Level 132 mmol/L Potassium Level 4.6 mmol/L Chloride Level 95 mmol/L Carbon Dioxide Level 30 mmol/L Anion Gap 7.0 mmol/L Blood Urea Nitrogen 35 mg/dl Creatinine 4.40 mg/dl Est Creatinine Clear Calc Drug Dose 17.5 ml/min Estimated GFR () 15.9 Estimated GFR (Non- 13.7 BUN/Creatinine Ratio 8.0 Random Glucose 106 mg/dl Lactic Acid Level 1.1 mmol/L 1.6 mmol/L Calcium Level 8.2 mg/dl Phosphorus Level 4.0 mg/dl Magnesium Level 2.1 mg/dl Total Bilirubin 1.0 mg/dl Direct Bilirubin 0.2 mg/dl Aspartate Amino Transf (AST/SGOT) 20 U/L Alanine Aminotransferase (ALT/SGPT) 29 U/L Alkaline Phosphatase 72 U/L Total Protein 7.5 gm/dl Albumin 2.9 gm/dl Random Cortisol 21.01 mcg/dl Bedside Glucose 162 mg/dl Assessment and Plan 61 y/o M with an increasingly complex medical history including CAD, diastolic CHF, CVA with expressive deficits, DM, hypotension, DVT, ESRD - Pt was at dialysis when he was noted to display hypotension and altered mentation. He was sent to the ER for evaluation. He can converse currently but cannot answer questions appropriately and is unable to provide a reliable history. He denies any symptoms and states that he feels fine. Initial labs and imaging are not consistent with infection although there is a questionable retrocardiac infiltrate. His BP has been persistently low since arrival with a systolic pressure of 60-70. Per the dialysis report - 3L fluid were removed. Hypotension and AMS - No clear evidence of infection. He did not respond to a 500cc bolus in the ER. Admitted to ICU and central line placed. He will receive fluids to optimize his volume status and we can reassess his mentation at that time. CT of the chest did not determine any PNA and leukocytosis now resolved. Pt remains hypotensive. Appreciate neph recs. Awaiting blood cx at this time. ESRD - we will contact the pts manager hospitality reg inpatient dialysis. CHF - diastolic - Pt is clinically dehydrated at present CAD - no evidence of ACS at present - he is not currently on any related medications History of DVT - cont Apixaban Full code - Apixaban prophylaxis
--- NOTE | 2017-01-31 16:43 | Critical Care Progress Note ---
Critical Care Progress Note Date of Service Jan 31, 2017. ICU Day ICU Day Number: [address] Costa Subjective Patient is a 61-year-old male who was admitted overnight for hypotension and altered mental status. Hypotension has resolved without intervention other than a 250 mL normal saline bolus. He has not been hypotensive throughout the day. He is at his baseline per Dr. Buchanan. He feels much better today. He is eating his breakfast on evaluation. No reported events overnight. Objective VITAL SIGNS - Vital signs and nursing notes were reviewed. GENERAL - 61-year-old male appearing older than his stated age who is in no acute distress. SKIN - Without rashes. NECK - Neck with FROM. LEFT IJ in place. LUNGS - Chest wall symmetric without accessory muscle use, intercostals retractions, or central cyanosis. Distal breath sounds. CARDIAC - RRR with S1/S2. No murmur, rubs, or gallops appreciated. ABDOMEN - Abdominal contour flat without pulsations or visible masses. BS normoactive all four quadrants. No tenderness or palpable masses. EXTREMITIES - No clubbing. No pretibial edema present. NEUROLOGIC - Cranial nerves II through XII grossly intact. PSYCH - A&Ox3 and cooperates fully with examiner. Current SOFA Score SOFA Score Response (Comments) Value Platelets (x10) > 150 0 Bilirubin (mg/dL) < 1.2 0 [facility] Coma Score 13 - 14 1 Level of Hypotension No Hypotension 0 Creatinine (mg/dL) 3.5 - 4.9 3 Total 4 Assessment & Plan (1) DM type 2 (diabetes mellitus, type 2) (2) Hyperlipidemia Nec/Nos (3) Morbid obesity (4) ESRD (end stage renal disease) on dialysis (5) History of methicillin resistant staphylococcus aureus (MRSA) (6) Hypotension Reason Critically Ill: 61-year-old male with hypertension in the setting of ESRD. Initially felt to be altered. Neuro - * CAM ICU: NEGATIVE * Neuro Checks. Cardiac - * Hypotensive Initially. * Responded well to small fluid boluses alone. * Did not require pressors overnight. * Will be judicious with fluid boluses. * Patient has responded well to stress dose steroids. * Will increase Florinef to 0.2 daily. * May consider increasing Midodrine from 2.5 mg dosing prior to dialysis. * Monitor EKGs for QTc in use of Levaquin. * Monitor on telemetry. Respiratory - * Concern for retrocardiac opacity on CXR: * Levaquin/Zosyn currently. * Ordered Chest CT. * Supplemental O2 as needed. * Continue serial CXRs. GI - * Progress diet as tolerated. * Protonix. RENAL/LYTES - * M/W/F Dialysis schedule. * Will continue per Nephro recommendation. * Monitor Electrolytes - replace per Nephro recommendation. - * Anuric. ENDO - * Continue Levothyroxine. * Continue to monitor BSGs - treat per protocol. HEME - * Chronic anemia. ID - * Will treat as a CAP with the understanding that the patient does have risk of healthcare exposure. * Will treat with Levaquin alone (500 mg PO q48h for a total of 7 days) * MRSA nasal swab negative - no need for Vanc. * D/C Zosyn. * Will recheck AM Procalcitonin and gauge therapy effectiveness. * Pt signed HIV consent for healthcare related exposure. LINES/IV ACCESS - * PIVs intact. * Removed CVL 2/2 placement - likely related to h/o chronic thrombus affecting placement. DVT PROPHYLAXIS - * Eliquis - will continue in setting of chronic thrombus. I have personally spent 35 minutes of critical care time in the direct management of this patient. This is a life/limb threatening event. This includes time spent evaluating patient, direct bedside care, chart review, placing orders, interpretation of diagnostic studies, discussion with consultants, patient, and family members, as well as other required patient management activities. This time is exclusive of all separately billable procedures, and teaching time and separate from and in addition to any other critical care service time. Thank you for this consultation allow us to be part of this patient's care. Please refer to my attending physician's documentation for any further recommendations. I have personally evaluated and examined this patient. I agree with assessment and plan of Sandra Crowder PA-C. inmproved throughout day, did not require pressors, given negative MRSA swab, and improvement with simple IV fluids, we have D escalated the patient's antibiotics. It is understood that he has risk factors for multidrug resistant organisms, however I feel that this is likely community-acquired pneumonia and will be able to be managed with Levaquin. Table for transfer out of the ICU today. Consults & Procedures Consultants: Nephro - Dr. Oncu Hospitalist - Dr. Ash Procedures: LEFT IJ CVL Data Medications: Current Inpatient Medications Medications (Trade) Dose Ordered Sig/Rigoberto Route Start Time Stop Time Status Last Admin Dose Admin Acetaminophen (Tylenol Tab) 650 mg Q4H PRN PO 01/30/17 23:15 03/01/17 23:14 Morphine Sulfate (MoRPHine SULFATE INJ) 2 mg Q2H PRN IV 01/30/17 23:15 02/13/17 23:14 Bisacodyl (Dulcolax Supp) 10 mg DAILY PRN RI 01/30/17 23:30 03/01/17 23:29 Calcium Acetate (Phoslo Cap) 2,001 mg TIDM PO 01/31/17 07:15 03/02/17 07:59 01/31/17 11:59 2,001 MG Escitalopram Oxalate (Lexapro Tab) 10 mg DAILY PO 01/31/17 09:00 03/02/17 08:59 01/31/17 08:51 10 MG Finasteride (Proscar Tab) 5 mg DAILY PO 01/31/17 09:00 03/02/17 08:59 01/31/17 08:52 5 MG Gabapentin (Neurontin Cap) 400 mg TID PO 01/31/17 09:00 03/02/17 08:59 01/31/17 14:38 400 MG Latanoprost (Xalatan Oph Soln) 1 drops HS OPL 01/31/17 21:00 03/02/17 20:59 Levothyroxine Sodium (Synthroid Tab) 100 mcg DAILYBB PO 01/31/17 06:00 03/02/17 06:59 01/31/17 05:59 100 MCG Midodrine (Proamatine Tab) 2.5 mg MoWeFr@0700,1100,1500 PO 02/01/17 07:00 03/03/17 06:59 Oxycodone/ Acetaminophen (Percocet 5-325mg Tab) 1 tab Q4H PRN PO 01/30/17 23:30 02/13/17 23:29 Sucralfate (Carafate Tab) 1 gm BID PO 01/31/17 09:00 03/02/17 08:59 01/31/17 08:51 1 GM Vitamin B Complex/ Vit C/Folic Acid (Nephrocaps) 1 cap DAILY PO 01/31/17 09:00 03/02/17 08:59 01/31/17 08:51 1 CAP Levofloxacin 500 mg/Prmx 100 ml @ 100 mls/hr Q48H IV 02/01/17 23:00 02/03/17 22:59 Piperacillin Sod/ Tazobactam Sod 3.375 gm/Dextrose 115 ml @ 28.75 mls/ hr Q12H IV 01/31/17 06:00 02/02/17 05:59 01/31/17 05:58 28.75 MLS/HR Piperacillin Sod/ Tazobactam Sod (Consult) 1 ea UD PRN N/A 01/31/17 04:45 03/02/17 04:44 Fludrocortisone Acetate (Florinef Tab) 0.2 mg QAM PO 02/01/17 09:00 03/03/17 08:59 Apixaban (Eliquis Tab) 5 mg BID PO 01/31/17 11:00 03/02/17 10:59 01/31/17 11:05 5 MG Pantoprazole Sodium (Protonix Tab) 40 mg QAM PO 02/01/17 09:00 03/03/17 08:59 I & O: 24-Hour Column 02/01/17 08:00 Intake Total 716 ml Output Total 0 ml Balance 716 ml Vital Signs: Date Time Temp Pulse Resp B/P (MAP) Pulse Ox O2 Delivery O2 Flow Rate FiO2 01/31/17 13:07 72 16 86/57 (67) 95 Nasal Cannula 2.0 01/31/17 11:30 37.0 69 16 96/69 (78) 95 Nasal Cannula 2.0 01/31/17 11:30 Nasal Cannula 2.0 01/31/17 09:41 69 13 71/50 (54) 96 01/31/17 09:30 36.8 69 16 84/40 (55) 95 Nasal Cannula 2.0 01/31/17 09:01 65 9 84/40 (57) 91 01/31/17 09:00 67 12 82 01/31/17 08:01 70 12 115/70 (80) 01/31/17 08:00 71 24 01/31/17 07:50 Nasal Cannula 2.0 01/31/17 07:31 65 18 94/58 (73) 97 01/31/17 07:30 36.8 65 16 94/57 (69) 95 Nasal Cannula 2.0 01/31/17 07:01 69 19 88/49 (61) 96 01/31/17 07:00 69 21 96 01/31/17 06:00 36.8 69 14 83/58 (66) 97 Nasal Cannula 2.0 01/31/17 04:00 94 Nasal Cannula 2.0 01/31/17 04:00 36.9 80 12 88/43 (58) 96 Nasal Cannula 2.0 01/31/17 03:30 80 15 100/65 (77) 94 Nasal Cannula 2.0 01/31/17 03:00 79 14 78/66 (70) Nasal Cannula 2.0 01/31/17 02:30 82 20 74/50 (58) Nasal Cannula 2.0 01/31/17 01:57 77 18 99/78 (85) Nasal Cannula 2.0 01/31/17 01:30 75 82/44 (57) Nasal Cannula 2.0 01/31/17 01:00 77 87/59 (68) 94 Nasal Cannula 2.0 01/31/17 00:30 37.0 97 20 72/59 94 Nasal Cannula 2.0 01/31/17 00:29 81 24 72/59 (63) Nasal Cannula 2.0 01/31/17 00:15 77 14 63/43 96 01/31/17 00:11 78 10 63/43 (50) 96 Nasal Cannula 2.0 01/31/17 00:01 78 12 63/43 (50) 96 Nasal Cannula 01/30/17 23:26 72 19 93 01/30/17 23:21 72/47 01/30/17 23:16 73 98 01/30/17 23:15 71/41 01/30/17 23:11 53/43 01/30/17 23:06 75 14 96 01/30/17 23:01 68/42 01/30/17 22:56 75 95 01/30/17 22:51 69/43 01/30/17 22:46 73 96 01/30/17 22:41 79/49 01/30/17 22:40 75 13 96 01/30/17 22:31 72/48 01/30/17 22:30 69 01/30/17 22:30 71 14 97 01/30/17 22:21 72/47 01/30/17 22:20 75 13 92 01/30/17 22:11 65/47 01/30/17 22:10 75 14 94 01/30/17 22:05 77 14 94 01/30/17 22:01 61/40 01/30/17 21:55 77 18 95 01/30/17 21:51 64/40 01/30/17 21:46 97 Nasal Cannula 2.0 01/30/17 21:45 79 15 97 01/30/17 21:41 59/41 01/30/17 21:35 75 13 01/30/17 21:30 70/43 01/30/17 21:27 78 13 95 01/30/17 21:24 59/32 01/30/17 21:21 59/34 01/30/17 21:17 80 17 94 01/30/17 21:11 79/39 01/30/17 21:09 79/42 01/30/17 21:07 79 15 94 01/30/17 21:01 56/39 01/30/17 20:57 81 16 95 01/30/17 20:52 55/37 01/30/17 20:51 57/38 01/30/17 20:47 79 12 96 01/30/17 20:42 79 15 96 01/30/17 20:41 83/54 01/30/17 20:32 83 17 95 01/30/17 20:31 79/57 01/30/17 20:22 84 13 95 01/30/17 20:17 84 13 95 01/30/17 20:11 76/48 01/30/17 19:37 84 16 01/30/17 19:31 /48 01/30/17 19:27 86 14 01/30/17 19:22 80/34 01/30/17 19:17 89 17 01/30/17 19:12 61/35 01/30/17 19:11 97 Nasal Cannula 4.0 01/30/17 19:10 97 Nasal Cannula 4.0 01/30/17 19:10 88 14 01/30/17 19:02 78/49 01/30/17 19:00 89 14 01/30/17 18:51 36.8 92 17 62/40 88 Room Air 01/30/17 18:51 94/78 01/30/17 18:50 89 14 97 01/30/17 18:49 73/40 01/30/17 18:43 63/45 01/30/17 18:42 75/32 01/30/17 18:38 62/40 01/30/17 18:35 90 Laboratory Results: Last 24 Hours Test 01/30/17 18:44 01/30/17 19:00 01/30/17 19:34 01/30/17 20:27 Bedside Glucose 140 mg/dl White Blood Count 14.35 K/uL Red Blood Count 4.11 M/uL Hemoglobin 12.1 g/dL Hematocrit 38.9 % Mean Corpuscular Volume 94.6 fL Mean Corpuscular Hemoglobin 29.4 pg Mean Corpuscular Hemoglobin Concent 31.1 g/dl Platelet Count 194 K/uL Mean Platelet Volume 10.4 fL Neutrophils (%) (Auto) 93.8 % Lymphocytes (%) (Auto) 2.8 % Monocytes (%) (Auto) 2.9 % Eosinophils (%) (Auto) 0.1 % Basophils (%) (Auto) 0.1 % Neutrophils # (Auto) 13.47 K/uL Lymphocytes # (Auto) 0.40 K/uL Monocytes # (Auto) 0.42 K/uL Eosinophils # (Auto) 0.01 K/uL Basophils # (Auto) 0.01 K/uL RDW Standard Deviation 54.2 fL RDW Coefficient of Variation 16.0 % Immature Granulocyte % (Auto) 0.3 % Immature Granulocyte # (Auto) 0.04 K/uL Prothrombin Time 10.9 SECONDS Prothromb Time International Ratio 1.0 Activated Partial Thromboplast Time 35.0 SECONDS Partial Thromboplastin Ratio 1.3 Sodium Level 132 mmol/L Potassium Level 4.5 mmol/L Chloride Level 94 mmol/L Carbon Dioxide Level 29 mmol/L Anion Gap 9.0 mmol/L Blood Urea Nitrogen 29 mg/dl Creatinine 4.00 mg/dl Est Creatinine Clear Calc Drug Dose 19.2 ml/min Estimated GFR () 17.8 Estimated GFR (Non- 15.3 BUN/Creatinine Ratio 7.3 Random Glucose 136 mg/dl Lactic Acid Level 2.2 mmol/L Calcium Level 9.3 mg/dl Total Bilirubin 0.6 mg/dl Direct Bilirubin 0.2 mg/dl Aspartate Amino Transf (AST/SGOT) 22 U/L Alanine Aminotransferase (ALT/SGPT) 31 U/L Alkaline Phosphatase 81 U/L Ammonia 26.0 umol/L Total Creatine Kinase 65 U/L Creatine Kinase MB < 0.5 ng/ml Creatine Kinase MB Ratio Troponin I 0.020 ng/ml Total Protein 8.3 gm/dl Albumin 3.3 gm/dl Lipase 78 U/L Procalcitonin 20.21 ng/ml Thyroid Stimulating Hormone (TSH) 1.130 uIu/ml Acetaminophen Level < 2 ug/ml Ethyl Alcohol mg/dL < 3.0 mg/dl Bedside Hemoglobin 12.6 g/dl Bedside Hematocrit 37 % Bedside Blood Gas pH (LAB) 7.38 Bedside Blood Gas pCO2 (LAB) 50 mmHg Bedside Blood Gas pO2 (LAB) 34 mmHg Bedside Blood Gas HCO3 (LAB) 29 meq/L Bedside Blood Gas Total CO2 31 mEq/l Bedside Blood Gas Base Excess (LAB) 4.0 meq/L Bedside Blood Gas O2 Saturation 63.0 % Bedside Sodium 132 mEq/L Bedside Potassium 4.3 mEq/L Test 01/31/17 03:27 01/31/17 10:59 01/31/17 12:58 White Blood Count 8.54 K/uL Red Blood Count 3.81 M/uL Hemoglobin 11.3 g/dL Hematocrit 35.9 % Mean Corpuscular Volume 94.2 fL Mean Corpuscular Hemoglobin 29.7 pg Mean Corpuscular Hemoglobin Concent 31.5 g/dl Platelet Count 159 K/uL Mean Platelet Volume 11.0 fL Neutrophils (%) (Auto) 89.9 % Lymphocytes (%) (Auto) 2.6 % Monocytes (%) (Auto) 6.7 % Eosinophils (%) (Auto) 0.2 % Basophils (%) (Auto) 0.2 % Neutrophils # (Auto) 7.68 K/uL Lymphocytes # (Auto) 0.22 K/uL Monocytes # (Auto) 0.57 K/uL Eosinophils # (Auto) 0.02 K/uL Basophils # (Auto) 0.02 K/uL RDW Standard Deviation 55.2 fL RDW Coefficient of Variation 16.2 % Immature Granulocyte % (Auto) 0.4 % Immature Granulocyte # (Auto) 0.03 K/uL Nucleated RBC Absolute Count (auto) 0.00 K/uL Nucleated Red Blood Cells % 0.0 % Venous Blood pH 7.36 Venous Blood Partial Pressure CO2 51 mmHg Venous Blood Partial Pressure O2 29 mmHg Venous Blood HCO3 29 mmol/L Venous Blood Oxygen Saturation < 60.0 % Venous Blood Base Excess 2.4 mEq/L Sodium Level 132 mmol/L Potassium Level 4.6 mmol/L Chloride Level 95 mmol/L Carbon Dioxide Level 30 mmol/L Anion Gap 7.0 mmol/L Blood Urea Nitrogen 35 mg/dl Creatinine 4.40 mg/dl Est Creatinine Clear Calc Drug Dose 17.5 ml/min Estimated GFR () 15.9 Estimated GFR (Non- 13.7 BUN/Creatinine Ratio 8.0 Random Glucose 106 mg/dl Lactic Acid Level 1.1 mmol/L 1.6 mmol/L Calcium Level 8.2 mg/dl Phosphorus Level 4.0 mg/dl Magnesium Level 2.1 mg/dl Total Bilirubin 1.0 mg/dl Direct Bilirubin 0.2 mg/dl Aspartate Amino Transf (AST/SGOT) 20 U/L Alanine Aminotransferase (ALT/SGPT) 29 U/L Alkaline Phosphatase 72 U/L Total Protein 7.5 gm/dl Albumin 2.9 gm/dl Random Cortisol 21.01 mcg/dl Bedside Glucose 162 mg/dl
[2017-01-31] MEDS: LATANOPROST 0.005% OP SOLN 2.5 ML BTL OPL SCH (22:11)
[2017-02-01] VITALS (18 sets, daily range): BP systolic 78–122; BP diastolic 31–95; PULSE 51–68; TEMP 36.3–36.6; O2SAT 91–93
[2017-02-01] MEDS: PIPERACILL/TAZOBAC IV 3.375 GM in DEXTROSE 5% 100ML 100 ML IV SCH ×2 (05:54→18:23)
[2017-02-01] MEDS: LEVOTHYROXINE 100 MCG TAB PO SCH (05:55)
[2017-02-01 06:46] LABS: BASO % 0.7 %; BASO ABS # 0.03 K/uL (0-0.2); COMPLETE YES; EOS % 3.4 %; HEMATOCRIT 31.9 % (42-52); IG% 0.2 %; LYMPH % 17.3 %; LYMPH ABS # 0.71 K/uL (1.2-3.4); MEAN CELL VOLUME 93.5 fL (80-100); MEAN CORPUSCULAR HEMOGLOBIN 29.3 pg (25-34); MEAN CORPUSCULAR HGB CONC 31.3 g/dl (32-36); MEAN PLATELET VOLUME 10.4 fL (7.4-10.4); MONO % 19.5 %; NEUT % 58.9 %; PLATELET COUNT 170 K/uL (130-400); RED BLOOD COUNT 3.41 M/uL (4.7-6.1); WHITE BLOOD COUNT 4.11 K/uL (4.8-10.8)
--- NOTE | 2017-02-01 07:27 | DIAGNOSTIC IMAGING REPORT ---
CHEST ONE VIEW PORTABLE CLINICAL HISTORY: 61 years-old Male presenting with pnm. TECHNIQUE: Portable upright AP view of the chest was obtained. COMPARISON: 01/31/2017. FINDINGS: The patient is BUSTAMANTE rotated. Right subclavian dialysis catheter terminates in the region of the superior cavoatrial junction. The previously noted left internal jugular central venous catheter has been removed. Mildly low lung volumes with hypoventilatory changes. No focal infiltrate. No large effusion or pneumothorax. Surgical clips project over the right axilla. Osseous structures grossly normal. Cholecystectomy clips may be present. IMPRESSION: 1. Interval removal of the left internal jugular central venous catheter. 2. Mildly low lung volumes with hypoventilatory changes. Electronically signed by: Eliot Doty M.D. 02/01/2017 7:26 AM Dictated Date/Time: 02/01/2017 7:24 AM
[2017-02-01 07:34] LABS: BUN/CREATININE RATIO 8.7 (10-20); CALCIUM 8.9 mg/dl (8.5-10.1); CREATININE 6.2 mg/dl (0.60-1.40); MAGNESIUM 2.5 mg/dl (1.8-2.4); PHOSPHORUS 5.5 mg/dl (2.5-4.9); POTASSIUM 4.1 mmol/L (3.5-5.1)
[2017-02-01] MEDS: MIDODRINE 2.5 MG TAB PO SCH ×3 (08:12→14:53)
[2017-02-01] MEDS: SUCRALFATE 1 GM TAB PO SCH ×2 (08:13→20:39)
[2017-02-01] MEDS: APIXABAN 2.5 MG TAB PO SCH ×2 (08:14→20:39)
[2017-02-01] MEDS: FLUDROCORTISONE ACETATE 0.1 MG TAB PO SCH (08:14)
[2017-02-01] MEDS: NEPHROCAPS PO SCH (08:15)
[2017-02-01] MEDS: GABAPENTIN 400 MG CAP PO SCH ×3 (08:15→20:39)
[2017-02-01] MEDS: ESCITALOPRAM OXALATE 10 MG TAB PO SCH (08:15)
[2017-02-01] MEDS: FINASTERIDE 5 MG TAB PO SCH (08:16)
[2017-02-01] MEDS: CALCIUM ACETATE 667MG GELCAP PO SCH ×3 (08:16→17:39)
[2017-02-01] MEDS: PANTOprazole SOD 40 MG TAB PO SCH (08:17)
[2017-02-01] MEDS ORDERED: APIXABAN 2.5 MG TAB PO SCH (09:00)
--- NOTE | 2017-02-01 11:21 | Progress Note ---
Subjective Date of Service: Feb 01, 2017. Subjective Pt evaluation today including: conversation w/ patient, physical exam, chart review, lab review, review of studies (CT chest, CT head, cxr), review of inpatient medication list Pain: denies cp, abd pain, joint pain, myalgias PO Intake: normal no issues overnight although staff report foul-smelling stool he, too, complained of the diarrhea denied fever, chills, sob, cough, mouth pain, chest pain, vomiting, joint pain, skin rash, myalgias he "feels good" denies focal motor weakness in right arm or right leg has chronic weakness in left arm/leg due to prior stroke Problem List Medical Problems: (1) Abdominal pain Status: Acute (2) C. difficile colitis Status: Acute (3) Caregiver has difficulty performing caretaking Status: Acute (4) Colitis Status: Acute (5) Dehydration Status: Acute (6) Dependence on renal dialysis Status: Acute (7) Failure to thrive Status: Acute (8) Fever Status: Acute (9) Hypotension Status: Acute (10) Infection associated with peritoneal dialysis catheter Status: Acute (11) Lactic acidosis Status: Acute (12) Periumbilical abdominal pain Status: Acute (13) PNA (pneumonia) Status: Acute (14) Pneumonia involving right lung Status: Acute (15) Sepsis Status: Acute (16) Septic shock Status: Acute (17) Thoracic back pain Status: Acute (18) Vomiting Status: Acute (19) Weakness Status: Acute Review of Systems Constitutional: No fever, No chills Respiratory: No cough Cardiac: No chest pain, No orthopnea Abdomen: No pain Objective Vital Signs Date Time Temp Pulse Resp B/P (MAP) Pulse Ox O2 Delivery O2 Flow Rate FiO2 02/01/17 10:35 36.4 54 18 105/71 (82) 93 Room Air 02/01/17 08:00 Room Air 02/01/17 07:25 36.6 56 18 111/77 (88) 93 Room Air 02/01/17 00:00 Ambu-Bag 2.0 01/31/17 23:22 36.6 61 18 112/72 (85) 91 Nasal Cannula 2.0 01/31/17 20:01 36.8 62 10 95/53 (67) 96 Nasal Cannula 2.0 01/31/17 20:00 Nasal Cannula 2.0 01/31/17 17:59 60 16 123/90 (101) 97 Nasal Cannula 2.0 01/31/17 15:31 66 10 81/47 (64) 91 01/31/17 15:30 Nasal Cannula 2.0 01/31/17 15:30 67 9 92 01/31/17 15:30 37.0 65 16 81/47 (58) 93 Nasal Cannula 2.0 01/31/17 15:01 69 15 82/51 (61) 93 01/31/17 15:00 68 18 93 01/31/17 14:31 67 13 70/43 (48) 94 01/31/17 14:30 68 23 91 01/31/17 14:01 70 15 96/55 (62) 92 01/31/17 14:00 71 13 92 01/31/17 13:31 67 14 86/52 (63) 94 01/31/17 13:30 73 11 90 01/31/17 13:07 72 16 86/57 (67) 95 Nasal Cannula 2.0 01/31/17 13:01 75 9 72/57 (61) 95 01/31/17 13:00 74 9 96 01/31/17 12:31 64 11 69/47 (56) 96 01/31/17 12:30 63 5 96 01/31/17 12:02 68 11 109/71 (77) 01/31/17 12:00 68 14 01/31/17 11:30 37.0 69 16 96/69 (78) 95 Nasal Cannula 2.0 01/31/17 11:30 Nasal Cannula 2.0 Physical Exam General Appearance: no apparent distress ENT: pharynx normal (MMM, no thrush) Neck: no JVD Respiratory/Chest: lungs clear, no respiratory distress, no accessory muscle use Cardiovascular: regular rate, rhythm, no gallop, no murmur Abdomen: normal bowel sounds, non tender, soft, no organomegaly Extremities: + pertinent finding (left BKA; no edema, right leg ) Neurologic/Psychiatric: alert, oriented x 3, + pertinent finding (minimal left arm/leg weakness; normal strength, 5/5, right arm/leg ) Skin: no rash, + pertinent finding (permcath, right chest, clean, no erythema ) Lymphatic: no adenopathy (cervical ) Laboratory Results Last 24 Hours Test 01/31/17 12:58 01/31/17 15:09 02/01/17 06:25 02/01/17 07:57 Lactic Acid Level 1.6 mmol/L Bedside Glucose 130 mg/dl 90 mg/dl White Blood Count 4.11 K/uL Red Blood Count 3.41 M/uL Hemoglobin 10.0 g/dL Hematocrit 31.9 % Mean Corpuscular Volume 93.5 fL Mean Corpuscular Hemoglobin 29.3 pg Mean Corpuscular Hemoglobin Concent 31.3 g/dl Platelet Count 170 K/uL Mean Platelet Volume 10.4 fL Neutrophils (%) (Auto) 58.9 % Lymphocytes (%) (Auto) 17.3 % Monocytes (%) (Auto) 19.5 % Eosinophils (%) (Auto) 3.4 % Basophils (%) (Auto) 0.7 % Neutrophils # (Auto) 2.42 K/uL Lymphocytes # (Auto) 0.71 K/uL Monocytes # (Auto) 0.80 K/uL Eosinophils # (Auto) 0.14 K/uL Basophils # (Auto) 0.03 K/uL RDW Standard Deviation 55.0 fL RDW Coefficient of Variation 16.2 % Immature Granulocyte % (Auto) 0.2 % Immature Granulocyte # (Auto) 0.01 K/uL Sodium Level 134 mmol/L Potassium Level 4.1 mmol/L Chloride Level 98 mmol/L Carbon Dioxide Level 26 mmol/L Anion Gap 10.0 mmol/L Blood Urea Nitrogen 54 mg/dl Creatinine 6.20 mg/dl Est Creatinine Clear Calc Drug Dose 12.4 ml/min Estimated GFR () 10.5 Estimated GFR (Non- 9.0 BUN/Creatinine Ratio 8.7 Random Glucose 91 mg/dl Calcium Level 8.9 mg/dl Phosphorus Level 5.5 mg/dl Magnesium Level 2.5 mg/dl Total Bilirubin 0.6 mg/dl Direct Bilirubin 0.2 mg/dl Aspartate Amino Transf (AST/SGOT) 49 U/L Alanine Aminotransferase (ALT/SGPT) 43 U/L Alkaline Phosphatase 90 U/L Total Protein 6.9 gm/dl Albumin 2.7 gm/dl Procalcitonin 39.34 ng/ml Assessment and Plan 61yo male - 1. shock - resolved. Etiology uncertain. Was felt to be sepsis/infectious at admission. Blood cx's neg x [address] chest w/o pneumonia. Does not make urine. No fever while here. Cortisol level was normal. No signs of cardiogenic shock. Doubt obstructive shock from PE (is on chronic anticoagulation, no hypoxia, etc) . Viral? hypovolemic? other? Agree with midodrine use on HD days along with florinef. Reasonable to finish course of levaquin. 2. diarrhea - check c. diff toxin. 3. CAD - no signs/symptoms of ischemia. 4. recent encephalopathy - resolved. Etiology uncertain. neuro exam stable and not suggestive of acute stroke. CT head at admission neg for stroke/ICH. 5. DVT proph - eliquis. 6. T2DM - controlled. 7. PAD s/p LEFT BKA - stable. 8. h/o DVT (RLE, 2016) - on eliquis. 9. hypothyroidism - cont synthroid. TSH compensated. 10. diastolic CHF, chronic - compensated. 11. HTN - BPs have been normal. observe through the conclusion of HD today back to [facility] in the AM Discharge planning: [facility] facility
[2017-02-01] MEDS: LATANOPROST 0.005% OP SOLN 2.5 ML BTL OPL SCH (20:40)
[2017-02-01] MEDS ORDERED: LEVOFLOXACIN 500 MG TAB PO SCH (21:00)
[2017-02-01] MEDS ORDERED: LEVOFLOXACIN / D5W 500 MG in PREMIXED IN D5W 100 ML IV SCH (23:00)
[2017-02-02] MEDS: LEVOTHYROXINE 100 MCG TAB PO SCH (06:20)
[2017-02-02 07:39] VITALS: BP 67/40; PULSE 56; TEMP 36.4; O2SAT 92
[2017-02-02 07:49] VITALS: BP 71/32
[2017-02-02 08:16] LABS: BASO % 0.9 %; BASO ABS # 0.04 K/uL (0-0.2); COMPLETE YES; EOS % 3.9 %; HEMATOCRIT 36.7 % (42-52); IG% 0.2 %; LYMPH % 19.5 %; LYMPH ABS # 0.85 K/uL (1.2-3.4); MEAN CELL VOLUME 95.1 fL (80-100); MEAN CORPUSCULAR HEMOGLOBIN 28.8 pg (25-34); MEAN CORPUSCULAR HGB CONC 30.2 g/dl (32-36); MEAN PLATELET VOLUME 10.4 fL (7.4-10.4); MONO % 18.5 %; PLATELET COUNT 161 K/uL (130-400); RED BLOOD COUNT 3.86 M/uL (4.7-6.1); WHITE BLOOD COUNT 4.37 K/uL (4.8-10.8)
[2017-02-02] MEDS: MIDODRINE 2.5 MG TAB PO SCH ×3 (08:56→15:51)
[2017-02-02] MEDS: CALCIUM ACETATE 667MG GELCAP PO SCH ×3 (08:56→17:15)
[2017-02-02] MEDS: FINASTERIDE 5 MG TAB PO SCH (08:56)
[2017-02-02] MEDS: GABAPENTIN 400 MG CAP PO SCH ×3 (08:56→19:53)
[2017-02-02] MEDS: SUCRALFATE 1 GM TAB PO SCH ×2 (08:56→19:53)
[2017-02-02] MEDS: FLUDROCORTISONE ACETATE 0.1 MG TAB PO SCH (08:57)
[2017-02-02] MEDS: APIXABAN 2.5 MG TAB PO SCH ×2 (08:57→19:53)
[2017-02-02] MEDS: PANTOprazole SOD 40 MG TAB PO SCH (08:57)
[2017-02-02 09:00] LABS: BUN/CREATININE RATIO 7.4 (10-20); CALCIUM 8.9 mg/dl (8.5-10.1); CREATININE 5.7 mg/dl (0.60-1.40); MAGNESIUM 2.3 mg/dl (1.8-2.4); PHOSPHORUS 4.9 mg/dl (2.5-4.9); POTASSIUM 3.8 mmol/L (3.5-5.1)
[2017-02-02] MEDS: NEPHROCAPS PO SCH (10:32)
[2017-02-02] MEDS: ESCITALOPRAM OXALATE 10 MG TAB PO SCH (10:32)
[2017-02-02 11:31] VITALS: BP 135/82; PULSE 66
[2017-02-02 12:35] VITALS: BP 144/80
[2017-02-02] MEDS ORDERED: COLCHICINE 0.6 MG TAB PO ONE ×2 (13:00→14:00)
[2017-02-02 15:02] VITALS: BP 111/74; PULSE 59; TEMP 36.6; O2SAT 93
--- NOTE | 2017-02-02 17:00 | DIAGNOSTIC IMAGING REPORT ---
RIGHT WRIST MIN 3 VIEWS ROUTINE HISTORY: 61 years-old Male distal ulnar pain, swelling; ?gouty arthritis? Right acute distal ulnar pain and swelling. No reported trauma. COMPARISON: None available TECHNIQUE: 3 views of the right wrist FINDINGS: Punctate radiodensity adjacent to the triquetrum is nonspecific. Mild radiocarpal and intercarpal degenerative changes are noted. Moderate first carpometacarpal osteoarthritis is noted. Vascular calcifications are present. Remote fracture deformity of the fifth metacarpal is seen. There is no acute fracture or dislocation. IMPRESSION: 1. No acute fracture or dislocation. No evidence of erosive arthropathy. 2. Remote fracture deformity of the fifth metacarpal. 3. Degenerative changes about the wrist. 4. Peripheral vascular disease. The above report was generated using voice recognition software. It may contain grammatical, syntax or spelling errors. Electronically signed by: Harvinder Kulkarni M.D. 02/02/2017 4:59 PM Dictated Date/Time: 02/02/2017 4:57 PM
[2017-02-02] MEDS: INDOMETHACIN 25 MG CAP PO SCH (18:33)
[2017-02-02] MEDS: LATANOPROST 0.005% OP SOLN 2.5 ML BTL OPL SCH (19:53)
--- NOTE | 2017-02-02 21:06 | Progress Note ---
Subjective Date of Service: Feb 02, 2017. Subjective Pt evaluation today including: conversation w/ patient, physical exam, chart review, lab review, review of studies (wrist xray), conversation w/ process consultant ( nephrology by phone), review of inpatient medication list Pain: right wrist, started this AM PO Intake: excellent - eating 100% meals pt reports that [facility] and the dialysis center ONLY check his BPs in his right leg both arms produce very low readings chronically he denies all complaints except right wrist pain he has prior h/o gout "years ago" Problem List Medical Problems: (1) Abdominal pain Status: Acute (2) C. difficile colitis Status: Acute (3) Caregiver has difficulty performing caretaking Status: Acute (4) Colitis Status: Acute (5) Dehydration Status: Acute (6) Dependence on renal dialysis Status: Acute (7) Failure to thrive Status: Acute (8) Fever Status: Acute (9) Hypotension Status: Acute (10) Infection associated with peritoneal dialysis catheter Status: Acute (11) Lactic acidosis Status: Acute (12) Periumbilical abdominal pain Status: Acute (13) PNA (pneumonia) Status: Acute (14) Pneumonia involving right lung Status: Acute (15) Sepsis Status: Acute (16) Septic shock Status: Acute (17) Thoracic back pain Status: Acute (18) Vomiting Status: Acute (19) Weakness Status: Acute Review of Systems Constitutional: No fever, No chills, No fatigue Respiratory: No cough, No dyspnea at rest Cardiac: No chest pain, No orthopnea Abdomen: + diarrhea, No pain, No nausea, No vomiting Musculoskeletal: + see HPI, + joint pain Objective Vital Signs Date Time Temp Pulse Resp B/P (MAP) Pulse Ox O2 Delivery O2 Flow Rate FiO2 02/02/17 19:56 Room Air 02/02/17 16:00 Room Air 02/02/17 15:02 36.6 59 18 111/74 (86) 93 Room Air 02/02/17 12:35 144/80 (101) 02/02/17 11:31 66 135/82 (99) 02/02/17 08:30 Room Air 02/02/17 07:49 71/32 (45) 02/02/17 07:39 36.4 56 18 67/40 (49) 92 Room Air 02/02/17 00:00 Nasal Cannula 2.0 02/01/17 23:47 36.4 56 18 111/74 (86) 92 Room Air Physical Exam General Appearance: no apparent distress ENT: pharynx normal Neck: no JVD Respiratory/Chest: lungs clear, no respiratory distress, no accessory muscle use Cardiovascular: regular rate, rhythm, no gallop Abdomen: normal bowel sounds, non tender, soft, no organomegaly Extremities: + pertinent finding (left BKA; right leg without edema, pulses 1+ ; right and left radial pulses <1+) Comments: musculoskeletal - right wrist - distal ulna/proximal wrist area with mild synovitis and tenderness to palpation; no cellulitis but mild overlying erythema Laboratory Results Last 24 Hours Test 02/02/17 07:44 02/02/17 15:04 02/02/17 16:48 02/02/17 17:11 White Blood Count 4.37 K/uL Red Blood Count 3.86 M/uL Hemoglobin 11.1 g/dL Hematocrit 36.7 % Mean Corpuscular Volume 95.1 fL Mean Corpuscular Hemoglobin 28.8 pg Mean Corpuscular Hemoglobin Concent 30.2 g/dl Platelet Count 161 K/uL Mean Platelet Volume 10.4 fL Neutrophils (%) (Auto) 57.0 % Lymphocytes (%) (Auto) 19.5 % Monocytes (%) (Auto) 18.5 % Eosinophils (%) (Auto) 3.9 % Basophils (%) (Auto) 0.9 % Neutrophils # (Auto) 2.49 K/uL Lymphocytes # (Auto) 0.85 K/uL Monocytes # (Auto) 0.81 K/uL Eosinophils # (Auto) 0.17 K/uL Basophils # (Auto) 0.04 K/uL RDW Standard Deviation 55.4 fL RDW Coefficient of Variation 16.1 % Immature Granulocyte % (Auto) 0.2 % Immature Granulocyte # (Auto) 0.01 K/uL Erythrocyte Sedimentation Rate 60 mm/hr Sodium Level 134 mmol/L Potassium Level 3.8 mmol/L Chloride Level 97 mmol/L Carbon Dioxide Level 26 mmol/L Anion Gap 11.0 mmol/L Blood Urea Nitrogen 42 mg/dl Creatinine 5.70 mg/dl Est Creatinine Clear Calc Drug Dose 13.5 ml/min Estimated GFR () 11.6 Estimated GFR (Non- 10.0 BUN/Creatinine Ratio 7.4 Random Glucose 76 mg/dl Calcium Level 8.9 mg/dl Phosphorus Level 4.9 mg/dl Magnesium Level 2.3 mg/dl Total Bilirubin 0.5 mg/dl Direct Bilirubin 0.1 mg/dl Aspartate Amino Transf (AST/SGOT) 27 U/L Alanine Aminotransferase (ALT/SGPT) 41 U/L Alkaline Phosphatase 93 U/L Total Protein 7.2 gm/dl Albumin 2.7 gm/dl Uric Acid 5.4 mg/dl Bedside Glucose 57 mg/dl 76 mg/dl Test 02/02/17 20:33 Bedside Glucose 147 mg/dl Assessment and Plan 61yo male - 1. shock - resolved. Etiology uncertain. Was felt to be sepsis/infectious at admission but extensive w/u negative including Blood cx's neg x 4 sets, CT chest w/o pneumonia, normal cortisol level. No signs of cardiogenic shock. Doubt obstructive shock from PE (is on chronic anticoagulation, no hypoxia, etc) . Viral? hypovolemic? other? he has intermittent low BPs even in the right leg. will change midodrine to DAILY use. Reasonable to finish course of levaquin. 2. diarrhea - c diff neg; abx-associated diarrhea and should be self-limiting. 3. CAD - no signs/symptoms of ischemia. 4. recent encephalopathy - resolved. Etiology uncertain. neuro exam stable and not suggestive of acute stroke. CT head at admission neg for stroke/ICH. 5. DVT proph - eliquis. 6. T2DM - controlled. 7. PAD s/p LEFT BKA - stable. 8. h/o DVT (RLE, 2016) - on eliquis. 9. hypothyroidism - cont synthroid. TSH compensated. 10. diastolic CHF, chronic - compensated. 11. HTN - see #1 above. 12. right wrist pain - gout? sed rate 60 uric acid level is high normal x-rays without pseudogout findings or fracture or osteomyelitis changes colchicine x 2 doses, then indocin 25mg TID for a few days (spoke with nephrology - they are ok with NSAIDs since he is anuric) likely d/c back to SNF in AM Discharge planning: half-way facility
[2017-02-03 06:03] LABS: BASO ABS # 0.04 K/uL (0-0.2); COMPLETE YES; EOS % 3.6 %; HEMATOCRIT 35.9 % (42-52); IG% 0.3 %; LYMPH % 23.8 %; LYMPH ABS # 0.93 K/uL (1.2-3.4); MEAN CELL VOLUME 94.7 fL (80-100); MEAN CORPUSCULAR HEMOGLOBIN 29.6 pg (25-34); MEAN CORPUSCULAR HGB CONC 31.2 g/dl (32-36); MEAN PLATELET VOLUME 10.6 fL (7.4-10.4); MONO % 12.3 %; PLATELET COUNT 173 K/uL (130-400); RED BLOOD COUNT 3.79 M/uL (4.7-6.1)
[2017-02-03 06:35] VITALS: BP 97/57; PULSE 50
[2017-02-03] MEDS: LEVOTHYROXINE 100 MCG TAB PO SCH (06:39)
[2017-02-03] MEDS: MIDODRINE 2.5 MG TAB PO SCH (06:40)
[2017-02-03 06:43] LABS: BUN/CREATININE RATIO 7.7 (10-20); CALCIUM 8.9 mg/dl (8.5-10.1); CREATININE 7.3 mg/dl (0.60-1.40); MAGNESIUM 2.4 mg/dl (1.8-2.4); PHOSPHORUS 7.1 mg/dl (2.5-4.9); POTASSIUM 3.9 mmol/L (3.5-5.1)
[2017-02-03] MEDS: CALCIUM ACETATE 667MG GELCAP PO SCH (08:07)
[2017-02-03 08:15] VITALS: BP 109/68; PULSE 52; TEMP 36.3; O2SAT 93
[2017-02-03] MEDS: SUCRALFATE 1 GM TAB PO SCH (08:51)
[2017-02-03] MEDS: FLUDROCORTISONE ACETATE 0.1 MG TAB PO SCH (08:52)
[2017-02-03] MEDS: APIXABAN 2.5 MG TAB PO SCH (08:52)
[2017-02-03] MEDS: INDOMETHACIN 25 MG CAP PO SCH (08:53)
[2017-02-03] MEDS: ESCITALOPRAM OXALATE 10 MG TAB PO SCH (08:53)
[2017-02-03] MEDS: NEPHROCAPS PO SCH (08:53)
[2017-02-03] MEDS: PANTOprazole SOD 40 MG TAB PO SCH (08:54)
[2017-02-03] MEDS: FINASTERIDE 5 MG TAB PO SCH (08:54)
[2017-02-03] MEDS: GABAPENTIN 400 MG CAP PO SCH (08:54)
--- NOTE | 2017-02-03 09:17 | Progress Note ---
Progress Note Date of Service Feb 03, 2017. Progress Note time - 0915 S: pt feels very good right wrist pain is less and he can freely move it with minimal pain swelling improved no fevers O: VSS, BPs sufficient gen - nad right wrist - less swelling, less erythema, less tenderness to palpation; active /passive ROM elicits minimal discomfort A/P: recent shock - resolved. etiology uncertain but infectious, cardiogenic causes r/o. possibly hypovolemic in setting of getting hemodialysis. right wrist synovitis - suspected gout; responded quickly to indocin & colchicine. d/c on NSAID for 5 days and serial exams exam not c/w septic joint ok to d/c back to SNF today had 1 low blood sugar yesterday in setting of receiving no Rx for h/o DM - cortisol level normal uncertain why he had this follow carefully at SNF if he continues with such would need endo referral HD scheduled for tomorrow AM Audi Gore MD
[2017-02-03] MEDS ORDERED: PRMT25 PO (09:24)
[2017-02-03] MEDS ORDERED: OXYC-57 PO (09:24)
[2017-02-03] MEDS ORDERED: PRLSR20 PO ×2 (09:24)
[2017-02-03] MEDS ORDERED: INDO-22 PO (09:25)
[2017-02-03] MEDS ORDERED: DXY100 PO (09:25)
[2017-02-03 09:26] VITALS: BP 109/68; PULSE 52; TEMP 36.3; O2SAT 93
--- NOTE | 2017-02-03 09:29 | Discharge Instructions ---
Discharge Instructions Date of Service Feb 03, 2017. Admission Reason for Admission: Altered Mental Status, Hypotension Discharge Discharge Diagnosis / Problem: altered mental status, likely due to the hypotension itself - resolved Discharge Goals Goal(s): Learn about illness, Diagnostic testing, Therapeutic intervention Activity Recommendations Activity Level: Assistance Required . Additional Information Patient informed of condition: Yes Advance Directives: Yes DNR: No Level of Care: Skilled Communicable Disease: No Prognosis: Stable Oxygen at (LPM): none [place] Catheter: No Instructions / Follow-Up Instructions / Follow-Up 1. Patient to resume normal hemodialysis schedule of Saturday/Saturday/Saturday at [facility] as previous. 2. If patient has ANY low blood sugar (less than 70) please inform general medical practitioner. Would recommend endocrinology referral if patient experiences hypoglycemia / low blood sugar at [facility]. Current Hospital Diet Patient's current hospital diet: Diabetes Type 2 Diet, Renal Diet Discharge Diet Recommended Diet: Diabetes Type 2 Diet, Renal Diet Fluid Restriction: 1500 ml (6 cups) Procedures Procedures Performed: CAT scan of the brain - normal. CAT scan of the lungs - normal. Multiple chest x-rays. Right wrist x-ray. Pending Studies Studies pending at discharge: no Physician Orders On Transfer Dressing Changes: per protocol for dialysis catheter, right chest IV Therapy: none Vital Signs: per routine fingerstick blood sugar checks before meals & at bedtime Weigh: daily POLST Discussion: Not Applicable Medical Emergencies . Who to Call and When: Medical Emergencies: If at any time you feel your situation is an emergency, please call 911 immediately. . Non-Emergent Contact Non-Emergency issues call your: Playground Worker Call Non-Emergent contact if: temperature is above 100.5, your pain is not controlled, your pain is worsening, your pain is unusual for you, your pain is concerning you, you have any medication questions . . "Provider Documentation" section prepared by Audi Gore. . Core Measure Problem Core Measures: None
--- NOTE | 2017-02-03 09:59 | Discharge Summary ---
Discharge Summary Date of Service Feb 03, 2017. Discharge Summary Admission Date: Jan 30, 2017 at 23:19 Discharge Date: Feb 03, 2017 Discharge Disposition: [facility] facility ([facility] ) Principal Diagnosis: shock/hypotension - resolved, etiology uncertain Problems/Secondary Diagnoses: 1. encephalopathy, likely metabolic from hypotension, resolved 2. history of stroke with resulting left-sided weakness 3. suspected acute gouty arthritis of the right wrist - improving 4. anemia of chronic disease 5. ESRD on HD M/W/F 6. h/o T2DM, no longer on treatment 7. PAD s/p left BKA; suspected PAD of arms leading to low BP readings 8. Depression 9. chronic diastolic CHF 10. h/o morbid obesity s/p gastric bypass 11. h/o HTN, now requiring midodrine/florinef for BP support 12. CAD s/p prior acute NC 13. Hyperlipidemia 14. Hypothyroidism 15. peripheral neuropathy 16. History of DVT 16. Glaucoma 17. Dialysis-related hypotension Procedures: 1. CT head - Ventricles and sulci normal in size. Periventricular and subcortical white matter hypoattenuation, nonspecific but likely indicative of chronic small vessel ischemic change. Old infarcts in the right occipital lobe, left parietal lobe, and right cerebellar hemisphere unchanged from prior. No mass effect or midline shift. No hemorrhage or acute territorial infarct. No extra-axial fluid collection. Paranasal sinuses and mastoid air cells clear. Calvarium intact. 2. CT chest - 1. Bibasilar linear densities. This favors subsegmental atelectasis. 2. Small amount of mucoid material within the distal trachea. 3. The left internal jugular central venous catheter is malpositioned and located within the left superior intercostal vein. This should be removed. Of note, the left internal jugular vein may have demonstrated chronic thrombus on the [address] Therefore, this could result in the malpositioning of the central venous catheter. 4. Trace pericardial effusion. 5. Small hiatus hernia. 3. multiple chest x-rays 4. right wrist x-rays - IMPRESSION: 1. No acute fracture or dislocation. No evidence of erosive arthropathy. 2. Remote fracture deformity of the fifth metacarpal. 3. Degenerative changes about the wrist. 4. Peripheral vascular disease. 5. femoral central venous catheter Consultations: critical care - Everton Costa, DO nephrology - [facility] Oncu, DO Medication Reconciliation New Medications: Doxycycline Hyclate (Doxycycline Hyclate) 100 Mg Cap 100 MG PO BID for 3 Days, #6 CAP 0 Refills Indomethacin (Indocin) 25 Mg Cap 25 MG PO BID for 5 Days, #10 CAP 0 Refills Changed Medications: Midodrine (Midodrine HCl) 2.5 Mg Tab 2.5 MG PO TID, #90 TABS 2 Refills (Changed from: UD; Refills: ; GIVE TID EVERY --) give all days of the week Omeprazole (Prilosec) 20 Mg Capcr 40 MG PO MWF, #30 CAP 11 Refills (Changed from: 20 MG; Refills: ) GIVE AT 0400 Omeprazole (Prilosec) 20 Mg Capcr 40 MG PO 4XWKUD, #30 CAP 11 Refills (Changed from: 20 MG; Refills: ) GIVE AT 1200, SUN, TUES, THUR, SAT Continued Medications: Acetaminophen Tab (Tylenol) 325 Mg Tab 650 MG PO Q6H PRN for MILD PAIN 1-4, FEVER>101 Apixaban (Eliquis) 5 Mg Tab 5 MG PO Q12 for 4XSWEEK, TAB GIVE SUN, TUES, THUR, SAT. GIVE AT 0800 & 2000 Apixaban (Eliquis) 5 Mg Tab 5 MG PO BID--, TAB - GIVE 0400 & 1600 B-Complex W/ C & Folic Acid (Nephronex) 1 Tab Tab 1 TAB PO DAILY GIVE SUN, TUES, THUR, SAT AT 0900 B-Complex W/ C & Folic Acid (Nephronex) 1 Tab Tab 1 TAB PO MWF GIVE AT 1200 Bisacodyl (Dulcolax) 10 Mg Sup 1 SUPP MD DAILY PRN for Constipation, SUP Calcium Acetate (Phoslo 667 Mg) 667 Mg Cap 3 CAP PO TID --, CAP GIVE -W- @ 0400, 1130, 1730 Calcium Acetate (Phoslo 667 Mg) 667 Mg Cap 3 CAP PO TID 4XSWK UD, CAP GIVE @ 0730, 1130, 1730 SUN, TUES, THUR, SAT Escitalopram (Lexapro) 10 Mg Tab 10 MG PO MWF, TAB GIVE AT 0400 Escitalopram (Lexapro) 10 Mg Tab 10 MG PO 4XWK, TAB GIVE SAT AT 0800 Finasteride (Proscar) 5 Mg Tab 5 MG PO DAILY, TAB Fludrocortisone Acetate (Florinef) 0.1 Mg Tab 0.1 MG PO DAILY, TAB GIVE MON, SAT, FRI AT 0400. GIVE , SAT AT 0800. Gabapentin (Neurontin) 400 Mg Cap 400 MG PO UD, CAP 1 TAB PO HS, Gabapentin (Neurontin) 400 Mg Cap 400 MG PO TID UD, CAP GIVE , SAT Lactobacillus Acidophilus (Lactinex) Tab 1 TAB PO BID , TAB GIVE @ 0400 & 1600 Lactobacillus Acidophilus (Lactinex) Tab 1 TAB PO [id number], TAB GIVE @ 0800 & 1600 , SAT Latanoprost (Xalatan 0.005% Oph Katya) 0.005 % Katya 1 DROP OPL HS, ML Levothyroxine Sodium (Synthroid) 100 Mcg Tab 100 MCG PO DAILY TAKE THIS MEDICATION ON AN EMPTY STOMACH AND 30 MINUTES BEFORE BREAKFAST OR ANY OTHER MEDICATIONS Oxycodone/Acetaminophen 5MG/325MG (Percocet 5MG/325MG) Tab 1 TABLET PO Q4H PRN for Pain for 30 Days, #30 TAB 0 Refills (This prescription has been renewed) Polyethylene Glycol 3350 (Bulk (Polyethylene Glycol 3350) 1 Pow Pow 17 GM PO DAILY PRN for Constipation, GM Sodium Phosphate/Biphosphate (Fleet Enema) Yulisa 1 EA MD UD PRN for Constipation, BTL Sucralfate (Carafate) 1 Gm Tab 1 GM PO BID , TAB GIVE AT 1200 & 2000 W- Sucralfate (Carafate) 1 Gm Tab 1 GM PO BID 4XSWK, TAB GIVE @ 0800 & 1600 , SUN Discharge Exam Physical Exam: General Appearance: no apparent distress ENT: pharynx normal Neck: no JVD Respiratory/Chest: lungs clear, no respiratory distress, no accessory muscle use, + pertinent finding (dialysis catheter right chest clean, no erythema) Cardiovascular: regular rate, rhythm, no gallop, no murmur, + abnormal peripheral pulses (radial pulses <1+; pulses right foot about 1+) Abdomen / GI: normal bowel sounds, non tender, soft, no organomegaly Extremities: no pedal edema (right leg), + inflammation (right wrist - resolving synovitis; modest tenderness to palpation and modest amount of swelling; passive/active ROM elicits minimal pain; mild overlying erythema but also improved), + pertinent finding (left BKA) Neurologic/Psychiatric: alert, oriented x 3, + motor weakness (LUE - mild) Skin: no rash Hospital Course HISTORY OF PRESENT ILLNESS: 61yo male with a complex medical history including CAD, chronic diastolic CHF, stroke with resulting left-sided weakness, h/o T2DM, hypotension, and ESRD on HD M/W/F who presented with altered mental status and hypotension while undergoing hemodialysis. He was sent to the ER for evaluation following the events at the dialysis center. During the hospitalist's admission assessment he was able to converse but could not answer questions appropriately and was unable to provide a reliable history. He denied any symptoms and stated that he felt fine. Initial labs and imaging were not consistent with infection although there was a questionable retrocardiac infiltrate on chest x-ray. His BP was persistently low since arrival in the ER with a systolic pressure of 60- 70. Per the dialysis report 3L fluid was removed during his hemodialysis session. Due to the hypotension/shock he was admitted to ICU for further treatment. HOSPITAL COURSE: 1. shock - the etiology of his shock was uncertain. Initially there were concerns that it was septic/infectious in origin but no pneumonia was found on chest x-ray or chest CT, blood cultures x 4 sets were negative, and no source of infection was found on physical exam. He does not make urine and thus u/a was not checked. Cortisol level was normal. He had no signs of cardiogenic shock. C diff toxin was negative. His dialysis catheter appeared normal. Doubt obstructive shock from PE as he had been taking chronic anticoagulation and he had no cardiopulmonary symptoms. The patient has a prior history of experiencing hypotension on hemodialysis days and thus it is possible his shock was from such. Perhaps he had an element of hypovolemic shock due to 3 liters of fluid being removed during his dialysis session. Perhaps he had a viral cause of his hypotension but this was felt highly unlikely. The patient had been taking florinef daily and midodrine on dialysis days for history of orthostasis and hypotension. During this stay the midodrine was changed to daily usage. He tolerated this well without any iatrogenic hypertension. Of note - the patient appears to have consistently low BPs in both arms. I suspect he has PAD of the arms. He tends to have reliable readings in his right leg and thus we recommend BP checks at the longterm and dialysis center in that leg. In the event that the source for his presentation was a bronchitis/lung source he will complete 3 additional days of doxycycline after discharge. He received IV/PO antibiotics during his entire stay. 2. diarrhea - c diff was negative; suspect antibiotic-associated diarrhea and should be self-limiting. 3. CAD - no signs/symptoms of ischemia during his stay. Troponin was negative. 4. recent encephalopathy - resolved. Etiology uncertain but suspect metabolic , perhaps from the hypotension. Neuro exam remained stable and not suggestive of acute stroke. CT head at admission negative for stroke/ICH. 5. history of T2DM - apparently after losing considerable weight in the past he was able to stop all therapy for his T2DM. Oddly the patient had an episode of asymptomatic hypoglycemia with fingerstick in the 50s during his stay. Again cortisol level was normal (>20). If he develops recurrent hypoglycemia would recommend endocrinology referral for additional work-up. 7. right wrist pain & synovitis - he developed this acutely late in his stay. X-rays were unremarkable (ie - no erosions, no signs of osteomyelitis, no CPPD changes, no acute fracture). Sed rate was 60; uric acid level was high normal at 5.4. He improved quickly with colchicine and indocin. The joint findings were not suggestive of a septic process and there was no evidence of overlying cellulitis. Recommend 5 additional days of indocin (nephrology was ok with use of this medication) and if it fails to improve he would need additional work-up. All other medical problems remained stable during his stay. 02/03/17 05:29 Red Blood Count 3.79, Mean Corpuscular Volume 94.7, Mean Corpuscular Hemoglobin 29.6, Mean Corpuscular Hemoglobin Concent 31.2, Mean Platelet Volume 10.6, Neutrophils (%) (Auto) 59.0, Lymphocytes (%) (Auto) 23.8, Monocytes (%) (Auto) 12.3, Eosinophils (%) (Auto) 3.6, Basophils (%) (Auto) 1.0, Neutrophils # (Auto ) 2.30, Lymphocytes # (Auto) 0.93, Monocytes # (Auto) 0.48, Eosinophils # (Auto ) 0.14, Basophils # (Auto) 0.04 02/03/17 05:29 Test 02/02/17 15:04 02/03/17 05:29 02/03/17 07:42 Uric Acid 5.4 mg/dl (2.6-7.2) White Blood Count 3.90 K/uL (4.8-10.8) Red Blood Count 3.79 M/uL (4.7-6.1) Hemoglobin 11.2 g/dL (14.0-18.0) Hematocrit 35.9 % (42-52) Mean Corpuscular Volume 94.7 fL (80-100) Mean Corpuscular Hemoglobin 29.6 pg (25-34) Mean Corpuscular Hemoglobin Concent 31.2 g/dl (32-36) Platelet Count 173 K/uL (130-400) Mean Platelet Volume 10.6 fL (7.4-10.4) Neutrophils (%) (Auto) 59.0 % Lymphocytes (%) (Auto) 23.8 % Monocytes (%) (Auto) 12.3 % Eosinophils (%) (Auto) 3.6 % Basophils (%) (Auto) 1.0 % Neutrophils # (Auto) 2.30 K/uL (1.4-6.5) Lymphocytes # (Auto) 0.93 K/uL (1.2-3.4) Monocytes # (Auto) 0.48 K/uL (0.11-0.59) Eosinophils # (Auto) 0.14 K/uL (0-0.5) Basophils # (Auto) 0.04 K/uL (0-0.2) RDW Standard Deviation 55.2 fL (36.4-46.3) RDW Coefficient of Variation 15.9 % (11.5-14.5) Immature Granulocyte % (Auto) 0.3 % Immature Granulocyte # (Auto) 0.01 K/uL (0.00-0.02) Anion Gap 12.0 mmol/L (3-11) Est Creatinine Clear Calc Drug Dose 10.5 ml/min Estimated GFR () 8.6 Estimated GFR (Non- 7.4 BUN/Creatinine Ratio 7.7 (10-20) Calcium Level 8.9 mg/dl (8.5-10.1) Phosphorus Level 7.1 mg/dl (2.5-4.9) Magnesium Level 2.4 mg/dl (1.8-2.4) Total Bilirubin 0.4 mg/dl (0.2-1) Direct Bilirubin 0.1 mg/dl (0-0.2) Aspartate Amino Transf (AST/SGOT) 19 U/L (15-37) Alanine Aminotransferase (ALT/SGPT) 32 U/L (12-78) Alkaline Phosphatase 85 U/L (45-117) Total Protein 7.3 gm/dl (6.4-8.2) Albumin 2.7 gm/dl (3.4-5.0) Bedside Glucose 79 mg/dl (70-99) Date/Time Source Procedure Growth Status 01/31/17 03:16 Blood Blood Culture - Preliminary NO GROWTH TO DATE. Resulted 01/31/17 02:55 Blood Blood Culture - Preliminary NO GROWTH TO DATE. Resulted 01/30/17 19:34 Blood Blood Culture - Preliminary NO GROWTH TO DATE. Resulted 01/30/17 19:00 Blood Blood Culture - Preliminary NO GROWTH TO DATE. Resulted 01/31/17 00:30 Nasal MRSA DNA Surveillance Screen - Final Specimen Negative for MRSA by DNA Probe Complete 02/01/17 14:30 Stool C.difficile Toxin B Gene (PCR) - Final No C. difficile toxin B gene detected Complete Total Time Spent: Greater than 30 minutes This includes examination of the patient, discharge planning, medication reconciliation, and communication with other providers. Discharge Instructions Please refer to the electronic Patient Visit Report (Discharge Instructions) for additional information. Follow-Up 1. hemodialysis at [facility] as scheduled on 02/04/17 2. [facility] nephrology within 3 days 3. bilingual medical assistant of [facility] within 3 days Additional Copies To [facility]; [facility]; [facility] romero; [facility]; Marky Buchanan DO
[2017-02-08] MEDS ORDERED: ACET325T96 PO (09:05)
[2017-02-08] MEDS ORDERED: LEVO100T PO (11:59)
[2017-02-08] MEDS ORDERED: GABA1CAP5 PO ×2 (12:29→22:08)
[2017-02-08] MEDS ORDERED: POLY1POW2 PO (17:32)
[2017-02-08] MEDS ORDERED: LATA0.5S OPL (17:32)
[2017-02-08] MEDS ORDERED: FINA5TAB PO ×2 (17:32→22:25)
[2017-02-08] MEDS ORDERED: BISA10SU3 PR (17:32)
[2017-02-08] MEDS ORDERED: SODIENE PR (17:32)
[2017-02-12] MEDS ORDERED: APIX1TAB3 PO ×2 (10:37)
== END 2017-02-03 10:50 | DRG 291 ==
LOC: EDBD 18:20 → C.EDB 18:23 → C.MSICU 23:19 → ENRESERV 23:40 → C.4E 01-31 20:30
PROVIDERS: ADMIT Internal Medicine; ATTEND Internal Medicine
DX: R57.9 Shock, unspecified (principal); G93.41 Metabolic encephalopathy; N18.6 End stage renal disease; I69.354 Hemiplegia and hemiparesis following cerebral infarction affecting left non-dominant side; I13.2 Hypertensive heart and chronic kidney disease with heart failure and with stage 5 chronic kidney disease, or end stage renal disease; I50.32 Chronic diastolic (congestive) heart failure; R64 Cachexia; I95.1 Orthostatic hypotension; R19.7 Diarrhea, unspecified; T36.95XA Adverse effect of unspecified systemic antibiotic, initial encounter; M10.9 Gout, unspecified; D63.8 Anemia in other chronic diseases classified elsewhere; E11.649 Type 2 diabetes mellitus with hypoglycemia without coma; E11.22 Type 2 diabetes mellitus with diabetic chronic kidney disease; E11.42 Type 2 diabetes mellitus with diabetic polyneuropathy; E11.319 Type 2 diabetes mellitus with unspecified diabetic retinopathy without macular edema; I25.10 Atherosclerotic heart disease of native coronary artery without angina pectoris; E03.9 Hypothyroidism, unspecified; G62.9 Polyneuropathy, unspecified; I73.9 Peripheral vascular disease, unspecified; H40.9 Unspecified glaucoma; F32.9 Major depressive disorder, single episode, unspecified; I25.2 Old myocardial infarction; Z68.26 Body mass index [BMI] 26.0-26.9, adult; Z99.2 Dependence on renal dialysis; Z98.84 Bariatric surgery status; Z89.512 Acquired absence of left leg below knee; Z96.649 Presence of unspecified artificial hip joint; Z86.718 Personal history of other venous thrombosis and embolism; Z86.14 Personal history of Methicillin resistant Staphylococcus aureus infection; Z87.891 Personal history of nicotine dependence; Z79.01 Long term (current) use of anticoagulants; Z79.891 Long term (current) use of opiate analgesic; Z79.899 Other long term (current) drug therapy

== ENCOUNTER 2017-02-08 17:55 | Inpatient (IN) | payer OTHER ==
[~2017-02-08] VITALS: Ht 172.7 cm; Wt 82.8 kg
[~2017-02-08 17:55] MED LIST changes: +ACET325T96 PO; -B COLIQ PO; +BISA10SU3 PR; -CHOL4POW3 PO; +DXY100 PO; -FERR1TAB68 PO; +FINA5TAB PO; -FLUO20CA35 PO; +GABA1CAP5 PO; +INDO-22 PO; +LATA0.5S OPL; -LCTX PO; +LEVO100T PO; -LIDO1KIT TD; +POLY1POW2 PO; -PROM25TA9 PO; -SEVE800T7 PO; +SODIENE PR; -SUCR5SUS PO; -ZNTT/150 PO
[2017-02-08] MEDS ORDERED: SODIUM CHLORIDE 0.9% 250ML 250 ML IV STA ×2 (18:40→20:29)
[2017-02-08 18:51] LABS: BASO % 0.2 %; BASO ABS # 0.01 K/uL (0-0.2); COMPLETE YES; EOS % 1.1 %; HEMATOCRIT 34.6 % (42-52); IG% 0.2 %; LYMPH % 22.7 %; LYMPH ABS # 1.07 K/uL (1.2-3.4); MEAN CELL VOLUME 95.3 fL (80-100); MEAN CORPUSCULAR HGB CONC 31.5 g/dl (32-36); MEAN PLATELET VOLUME 10.2 fL (7.4-10.4); MONO % 13.4 %; NEUT % 62.4 %; PLATELET COUNT 191 K/uL (130-400); RED BLOOD COUNT 3.63 M/uL (4.7-6.1); WHITE BLOOD COUNT 4.71 K/uL (4.8-10.8)
[2017-02-08 19:19] LABS: ALB/GLOB RATIO 0.6 (0.9-2); BUN/CREATININE RATIO 5.7 (10-20); CALCIUM 8.8 mg/dl (8.5-10.1); CREATININE 4.5 mg/dl (0.60-1.40); POTASSIUM 3.5 mmol/L (3.5-5.1)
--- NOTE | 2017-02-08 19:33 | EMERGENCY ROOM VISIT NOTE ---
History Report prepared by Jason: Efe Gil Under the Supervision of: Rama NguyenO. First contact with patient: 18:28 Chief Complaint: HYPOTENSION Stated Complaint: HYPOTENSION / HEARTHSIDE History of Present Illness The patient is a 61 year old male who presents to the Emergency Room for low blood pressure occurring prior to arrival. The patient states that he had dialysis this morning, and afterwards he was tired, and he states that he had low blood pressure even then. He states that he normally has low blood pressure. He notes that he was recently admitted in the hospital for a few days due to hypotension and pneumonia. He states that he was given on antibiotics, and he states that he is not on oxygen at home and does not use breathing treatments. The patient denies any history of asthma or COPD. The patient additionally notes that he has been having diarrhea since he started the antibiotics, and he denies any hematochezia, cough, or shortness of breath. Pt denies headache, change in vision, fevers, chest pain, shortness of breath, nausea, vomiting, pain with urination, and melena. Source of History: patient Onset: prior to arrival Position: other (global) Quality: other Timing: constant Associated Symptoms: + diarrhea Review of Systems See HPI for pertinent positives & negatives. A total of 10 systems reviewed and were otherwise negative. Past Medical & Surgical Medical Problems: (1) Altered mental status (2) Anemia (3) Arrhythmia (4) Bacteremia (5) CAD (coronary artery disease) (6) Congestive Heart Failure Nos (7) Depression (8) Diab W Oth Spec Manifest, Type Ii Or Unspec Type, Not Uncntr (9) Diabetic retinopathy (10) DM type 2 (diabetes mellitus, type 2) (11) End stage renal disease (12) ESRD (end stage renal disease) on dialysis (13) Fluency disorder following cerebrovascular accident (14) History of Clostridium difficile colitis (15) History of CVA (cerebrovascular accident) (16) History of GI bleed (17) History of methicillin resistant staphylococcus aureus (MRSA) (18) History of non-ST elevation myocardial infarction (NSTEMI) (19) Hyperkalemia (20) hyperkalemia, ESRD, wrist fx (21) Hyperlipidemia Nec/Nos (22) Hypertension Nos (23) Hypothyroidism Nos (24) Migraine (25) Morbid obesity (26) Peritonitis (27) Polyneuropathy in diabetes (28) Proteinuria (29) Social disinhibition (30) Vitamin D deficiency Surgical Problems: (1) Great toe amputation status (2) H/O gastric bypass (3) H/O total hip arthroplasty (4) History of cholecystectomy (5) History of colonoscopy with polypectomy (6) History of left below knee amputation Family History FH: heart disease FATHER FHx: cancer FATHER Hypertension Social History Smoking Status: Former Smoker Alcohol Use: occasionally Drug Use: none Marital Status: single Housing Status: lives alone Occupation Status: disabled Current/Historical Medications Scheduled Apixaban (Eliquis), 5 MG PO 4XWK Apixaban (Eliquis), 5 MG PO 3XWK B-Complex W/ C & Folic Acid (Nephronex), 1 TAB PO 4XWK B-Complex W/ C & Folic Acid (Nephronex), 1 TAB PO 3XWK Calcium Acetate (Phoslo 667 Mg), 3 CAP PO 3XWK Calcium Acetate (Phoslo 667 Mg), 3 CAP PO 4XWK Escitalopram (Lexapro), 10 MG PO 3XWK Escitalopram (Lexapro), 10 MG PO 4XWK Finasteride (Proscar), 5 MG PO 3XWK Finasteride (Proscar), 5 MG PO 4XWK Fludrocortisone Acetate (Florinef), 0.1 MG PO 3XWK Fludrocortisone Acetate (Fludrocortisone Acetate), 0.1 MG PO 4XWK Gabapentin (Neurontin), 400 MG PO 3XWK Gabapentin (Neurontin), 400 MG PO 4XWK Lactobacillus Acidophilus (Lactinex), 1 TAB PO 3XWK Lactobacillus Acidophilus (Lactinex), 1 TAB PO 4XWK Latanoprost (Xalatan 0.005% Oph Katya), 1 DROP OPL HS Levothyroxine Sodium (Synthroid), 100 MCG PO DAILY Midodrine (Midodrine HCl), 2.5 MG PO TID Omeprazole (Prilosec), 40 MG PO 3XWK Omeprazole (Prilosec), 40 MG PO 4XWK Sucralfate (Carafate), 1 GM PO 3XWK Sucralfate (Carafate), 1 GM PO 4XWK Scheduled PRN Acetaminophen (Tylenol), 1 SUPP NV Q6H PRN for Mild Pain/Fever Acetaminophen Tab (Tylenol), 650 MG PO Q6H PRN for Mild Pain/Fever Bisacodyl (Dulcolax), 1 SUPP NV UD PRN for Constipation Magnesium Hydroxide (Milk Of Magnesia), 30 ML PO UD PRN for Constipation Oxycodone/Acetaminophen 5MG/325MG (Percocet 5MG/325MG), 1 TABLET PO Q4H PRN for Pain Polyethylene Glycol 3350 (Bulk (Polyethylene Glycol 3350), 17 GM PO Q24H PRN for Constipation Sodium Phosphate/Biphosphate (Fleet Enema), 1 EA NV UD PRN for Constipation Allergies Coded Allergies: No Known Allergies (Verified , `, 12/14/16) Physical Exam Vital Signs Date Time Temp Pulse Resp B/P (MAP) Pulse Ox O2 Delivery O2 Flow Rate FiO2 02/08/17 22:00 71/45 02/08/17 21:55 59 10 02/08/17 21:50 65 14 94 Nasal Cannula 3.0 02/08/17 21:45 75/49 02/08/17 21:35 66 15 93 Nasal Cannula 3.0 02/08/17 21:30 75/44 02/08/17 21:20 69 14 02/08/17 21:15 72/44 02/08/17 21:05 69 13 90 Nasal Cannula 3.0 02/08/17 21:02 69/45 02/08/17 21:00 68/41 02/08/17 20:50 67 14 94 Nasal Cannula 3.0 02/08/17 20:45 63/41 02/08/17 20:35 70 16 97 Nasal Cannula 3.0 02/08/17 20:30 68/39 02/08/17 20:27 75 15 93 Nasal Cannula 3.0 02/08/17 20:15 64/42 02/08/17 20:12 74 13 92 Nasal Cannula 3.0 02/08/17 20:07 74 18 91 Nasal Cannula 3.0 02/08/17 20:00 64/43 02/08/17 19:52 72 13 90 Nasal Cannula 3.0 02/08/17 19:47 02/08/17 19:15 58/37 02/08/17 19:07 91 Nasal Cannula 3.0 02/08/17 19:06 69 14 91 Nasal Cannula 3.0 02/08/17 19:01 62/35 02/08/17 18:55 73 16 90 Nasal Cannula 3.0 02/08/17 18:45 66/44 02/08/17 18:40 70 16 91 Nasal Cannula 3.0 02/08/17 18:30 65/42 02/08/17 18:25 76 14 93 02/08/17 18:16 60/43 02/08/17 18:12 75 02/08/17 18:12 36.9 78 16 61/37 87 Room Air 02/08/17 18:09 90/51 Physical Exam GENERAL: alert, well appearing, well nourished, no distress, non-toxic EYE EXAM: normal conjunctiva, PERRL and EOM's grossly intact OROPHARYNX: no exudate, no erythema, lips, buccal mucosa, and tongue normal and mucous membranes are dry. NECK: supple, no nuchal rigidity, no adenopathy, non-tender LUNGS: Clear to auscultation. Normal chest wall mechanics HEART: no murmurs, S1 normal and S2 normal ABDOMEN: abdomen soft, non-tender, normo-active bowel sounds, no masses, no rebound or guarding. BACK: Back is symmetrical on inspection and there is no deformity, no midline tenderness, no CVA tenderness. SKIN: no rashes and no bruising UPPER EXTREMITIES: upper extremities are grossly normal. LOWER EXTREMITIES: BKA of the left leg. No pitting edema. NEURO EXAM: Normal sensorium, cranial nerves II-XII grossly intact, normal speech, no gross weakness of arms, no gross weakness of legs. Gross sensation intact. Medical Decision & Procedures ER Provider Diagnostic Interpretation: Radiology results have been interpreted by the radiologist and reviewed by me. CHEST ONE VIEW PORTABLE CLINICAL HISTORY: hypotension dyspnea COMPARISON STUDY: 02/01/2017 FINDINGS: Mild chronic left basilar interstitial prominence. Lungs otherwise appear clear. Central catheter in superior vena cava. IMPRESSION: Mild left basilar chronic interstitial change versus mild infiltrative change. Lungs otherwise are clear The above report was generated using voice recognition software. It may contain grammatical, syntax or spelling errors. Electronically signed by: Parker Arthur M.D. 02/08/2017 7:59 PM Dictated Date/Time: 02/08/2017 7:58 PM Laboratory Results 02/08/17 18:40 Red Blood Count 3.63, Mean Corpuscular Volume 95.3, Mean Corpuscular Hemoglobin 30.0, Mean Corpuscular Hemoglobin Concent 31.5, Mean Platelet Volume 10.2, Neutrophils (%) (Auto) 62.4, Lymphocytes (%) (Auto) 22.7, Monocytes (%) (Auto) 13.4, Eosinophils (%) (Auto) 1.1, Basophils (%) (Auto) 0.2, Neutrophils # (Auto ) 2.94, Lymphocytes # (Auto) 1.07, Monocytes # (Auto) 0.63, Eosinophils # (Auto ) 0.05, Basophils # (Auto) 0.01 02/08/17 18:40 Test 02/08/17 18:40 02/08/17 18:49 White Blood Count 4.71 K/uL (4.8-10.8) Red Blood Count 3.63 M/uL (4.7-6.1) Hemoglobin 10.9 g/dL (14.0-18.0) Hematocrit 34.6 % (42-52) Mean Corpuscular Volume 95.3 fL (80-100) Mean Corpuscular Hemoglobin 30.0 pg (25-34) Mean Corpuscular Hemoglobin Concent 31.5 g/dl (32-36) Platelet Count 191 K/uL (130-400) Mean Platelet Volume 10.2 fL (7.4-10.4) Neutrophils (%) (Auto) 62.4 % Lymphocytes (%) (Auto) 22.7 % Monocytes (%) (Auto) 13.4 % Eosinophils (%) (Auto) 1.1 % Basophils (%) (Auto) 0.2 % Neutrophils # (Auto) 2.94 K/uL (1.4-6.5) Lymphocytes # (Auto) 1.07 K/uL (1.2-3.4) Monocytes # (Auto) 0.63 K/uL (0.11-0.59) Eosinophils # (Auto) 0.05 K/uL (0-0.5) Basophils # (Auto) 0.01 K/uL (0-0.2) RDW Standard Deviation 56.8 fL (36.4-46.3) RDW Coefficient of Variation 16.4 % (11.5-14.5) Immature Granulocyte % (Auto) 0.2 % Immature Granulocyte # (Auto) 0.01 K/uL (0.00-0.02) Anion Gap 7.0 mmol/L (3-11) Est Creatinine Clear Calc Drug Dose 18.0 ml/min Estimated GFR () 15.4 Estimated GFR (Non- 13.3 BUN/Creatinine Ratio 5.7 (10-20) Calcium Level 8.8 mg/dl (8.5-10.1) Total Bilirubin 0.6 mg/dl (0.2-1) Aspartate Amino Transf (AST/SGOT) 18 U/L (15-37) Alanine Aminotransferase (ALT/SGPT) 34 U/L (12-78) Alkaline Phosphatase 88 U/L (45-117) Total Protein 7.4 gm/dl (6.4-8.2) Albumin 2.8 gm/dl (3.4-5.0) Globulin 4.6 gm/dl (2.5-4.0) Albumin/Globulin Ratio 0.6 (0.9-2) Bedside Lactic Acid Venous 1.30 mmol/L (0.90-1.70) Laboratory results per my review. Medications Administered Medications (Trade) Dose Ordered Sig/Rigoberto Route Start Time Stop Time Status Last Admin Dose Admin Sodium Chloride 250 ml @ 999 mls/hr Q16M STAT IV 02/08/17 18:40 02/08/17 18:55 DC 02/08/17 18:54 999 MLS/HR Sodium Chloride 250 ml @ 999 mls/hr Q16M STAT IV 02/08/17 20:29 02/08/17 20:44 DC 02/08/17 20:37 999 MLS/HR Albumin Human (Albumin 25%) 25 gm ONE ONCE IV 02/08/17 21:45 02/08/17 21:46 DC 02/08/17 21:52 25 GM Vancomycin HCl (Vancomycin 1gm/ 270ml Nss) 1 gm NOW STAT IV 02/08/17 21:39 02/08/17 21:41 DC 02/08/17 23:00 1 GM Piperacillin Sod/ Tazobactam Sod (Zosyn Iv) 3.375 gm NOW STAT IV 02/08/17 21:39 02/08/17 21:41 DC 02/08/17 22:22 3.375 GM ED Course 1828: The patient was evaluated in room C6. A complete history and physical exam was performed. 1839: Sodium Chloride 250 ml @ 999 mls/hr IV 2028: Sodium Chloride 250 ml @ 999 mls/hr IV 2103: I reevaluated the patient, and his pressure is still low. He does not have any current complaints. 2138: I reviewed the patient's case with Dr. Washburn. He will evaluate the patient for further management. I ordered Zosyn 3.375gm IV and Vancomycin HCl 1gm IV Medical Decision Differential diagnosis: Etiologies such as mood disorder, infection, hypoglycemia, electrolyte abnormalities, cardiac sources, intracerebral event, toxicologic, neurologic, as well as others were entertained. Patient with persistent hypotension despite small fluid boluses given that he is a dialysis patient. Patient denies any focal symptoms, however did not report any sense of improvement following fluid boluses. No evidence of acute infectious etiology, patient no longer makes urine. Patient with no complaints of cough or respiratory symptoms. No completes of abdominal pain, states had mild diarrhea one started antibiotics for recent pneumonia however that is since resolved. No vomiting, no headaches. Patient's low risk for bacteremia/ sepsis given chronic morbidities, dialysis, as well as recent hospitalization. After discussion with hospitalist, cultures added and empiric antibiotics started. Medication Reconcilliation Current Medication List: was personally reviewed by me Blood Pressure Screening Patient's blood pressure: Low blood pressure Monitored by the hospitalist Consults Time Called: 2100 Consulting Physician: Dr. Washburn Returned Call: 2138 I reviewed the patient's case with Dr. Washburn. He will evaluate the patient for further management. Impression Primary Impression: Weakness Additional Impressions: Hypotension ESRD (end stage renal disease) on dialysis Scribe Attestation The scribe's documentation has been prepared under my direction and personally reviewed by me in its entirety. I confirm that the note above accurately reflects all work, treatment, procedures, and medical decision making performed by me. Departure Information Dispostion Being Evaluated By Hospitalist Referrals Everton Kahn M.D. (PCP) Patient Instructions My [facility] Problem Qualifiers Additional Impressions: Hypotension Hypotension type: unspecified hypotension type Qualified Codes: I95.9 - Hypotension, unspecified
--- NOTE | 2017-02-08 20:01 | DIAGNOSTIC IMAGING REPORT ---
CHEST ONE VIEW PORTABLE CLINICAL HISTORY: hypotension dyspnea COMPARISON STUDY: 02/01/2017 FINDINGS: Mild chronic left basilar interstitial prominence. Lungs otherwise appear clear. Central catheter in superior vena cava. IMPRESSION: Mild left basilar chronic interstitial change versus mild infiltrative change. Lungs otherwise are clear The above report was generated using voice recognition software. It may contain grammatical, syntax or spelling errors. Electronically signed by: Parker Arthur M.D. 02/08/2017 7:59 PM Dictated Date/Time: 02/08/2017 7:58 PM
[2017-02-08] MEDS ORDERED: PIPERACILLIN/TAZOBACTAM 3.375 GM/100ML D5W IV STA (21:39)
[2017-02-08] MEDS ORDERED: VANCOMYCIN 1GM/270ML NSS IV STA (21:39)
[2017-02-08] MEDS ORDERED: ALBUMIN HUMAN 25% 12.5 GM/50 ML VIAL IV ONE (21:45)
[2017-02-08] MEDS ORDERED: FLUD0.1T10 PO (22:08)
[2017-02-08] MEDS ORDERED: SUCR1TAB29 PO ×2 (22:08)
[2017-02-08] MEDS ORDERED: APIX1TAB3 PO ×2 (22:08)
[2017-02-08] MEDS ORDERED: B-CO1TAB PO ×2 (22:08)
[2017-02-08] MEDS ORDERED: GABA1CAP5 PO (22:08)
[2017-02-08] MEDS ORDERED: LCTX PO ×2 (22:08)
[2017-02-08] MEDS ORDERED: ESCI10TA17 PO ×2 (22:08)
[2017-02-08] MEDS ORDERED: FLR1 PO (22:11)
[2017-02-08] MEDS ORDERED: BISACODYL 10 MG SUPP PR PRN (22:15)
[2017-02-08] MEDS ORDERED: ZOLPIDEM TARTRATE 5 MG TAB PO PRN (22:15)
[2017-02-08] MEDS ORDERED: SOD PHOSPHATE/SOD BIPHOSPHATE ENEMA 132 ML BTL PR PRN (22:15)
[2017-02-08] MEDS ORDERED: ACETAMINOPHEN 325 MG TAB PO PRN ×2 (22:15)
[2017-02-08] MEDS ORDERED: POLYETHYLENE (MIRALAX) 17 GM PACK PO PRN (22:15)
[2017-02-08] MEDS ORDERED: VANCOMYCIN INJ 1,000 MG in SODIUM CHLORIDE 0.9% 250ML 250 ML IV STA (22:16)
[2017-02-08] MEDS ORDERED: OMEP20CA9 PO ×2 (22:21)
[2017-02-08] MEDS ORDERED: CALC667C4 PO ×2 (22:23)
[2017-02-08] MEDS ORDERED: FINA5TAB PO (22:25)
[2017-02-08] MEDS ORDERED: DEXTROSE 50% 50 ML SYR IV PRN (22:30)
[2017-02-08] MEDS ORDERED: GLUCOSE 40% GEL 15 GM TUBE PO PRN (22:30)
[2017-02-08] MEDS ORDERED: GLUCOSE 10 TABS/TUBE PO PRN (22:30)
[2017-02-08] MEDS ORDERED: GLUCAGON FOR INJ 1 MG VIAL SQ PRN (22:30)
[2017-02-08] MEDS ORDERED: ACET650S10 PR (22:52)
[2017-02-08] MEDS ORDERED: MOML PO (22:58)
[2017-02-08 23:10] VITALS: BP 50/27; PULSE 60; TEMP 36.8; Ht 172.7 cm; Wt 82.8 kg
--- NOTE | 2017-02-08 23:24 | History and Physical ---
History & Physical Date & Time of Service: Feb 08, 2017 at 23:24 Chief Complaint: End Stage Renal Disease On Dialysis, Hypotension Primary Care Physician: Everton Kahn M.D. History of Present Illness Source: patient, hospital records The patient is a 61-year-old male with most recent admission from January 30 to February 03, who resents to the emergency department due to low blood pressure after being at dialysis early in the morning. His main symptom is that of severe fatigue. His most recent hospital admission was due to low blood pressure and pneumonia. He reports some loose stools since he's been on antibiotics posthospitalization. Past Medical/Surgical History Medical Problems: (1) Anemia Status: Chronic (2) CAD (coronary artery disease) Permanent Comment: per records- had acute LA in 07/2001 and 03/2010. 40% LAD and 30% circ obstruction noted in records- unknown date of cath. 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 (10) History of Clostridium difficile colitis Status: Chronic (11) History of CVA (cerebrovascular accident) Status: Chronic (12) History of GI bleed Permanent Comment: EGD 02/08/15- ulceration at gastrojejunal anastomosis from bastric bypass Colonoscopy 02/08/15- internal hemorrhoids Status: Chronic (13) History of methicillin resistant staphylococcus aureus (MRSA) Status: Chronic (14) History of non-ST elevation myocardial infarction (NSTEMI) Status: Chronic (15) Hyperlipidemia Nec/Nos Status: Chronic (16) Hypertension Nos Status: Chronic (17) Hypothyroidism Nos Status: Chronic (18) Migraine Status: Chronic (19) Morbid obesity Status: Chronic (20) Polyneuropathy in diabetes Status: Chronic (21) Proteinuria Status: Chronic (22) Vitamin D deficiency Status: Chronic Surgical Problems: (1) Great toe amputation status Status: Resolved (2) H/O gastric bypass Status: Chronic (3) H/O total hip arthroplasty Status: Chronic (4) History of cholecystectomy Status: Chronic (5) History of colonoscopy with polypectomy Permanent Comment: 09/22/2014- adenomatous polyps Status: Chronic (6) History of left below knee amputation Status: Chronic Family History FH: heart disease FATHER FHx: cancer FATHER Hypertension Social History Smoking Status: Former Smoker Smokeless Tobacco Use: No Alcohol Use: none Drug Use: none Marital Status: single Housing status: lives alone, other Occupational Status: disabled Immunizations History of Influenza Vaccine: Unknown History of Tetanus Vaccine?: Unknown History of Pneumococcal: Unknown History of Hepatitis B Vaccine: Unknown Multi-Drug Resistant Organisms History of MDRO: Yes Type of MDRO: MRSA Allergies Coded Allergies: No Known Allergies (Verified , `, 12/14/16) Home Medications Scheduled Apixaban (Eliquis), 5 MG PO 4XWK Apixaban (Eliquis), 5 MG PO 3XWK B-Complex W/ C & Folic Acid (Nephronex), 1 TAB PO 4XWK B-Complex W/ C & Folic Acid (Nephronex), 1 TAB PO 3XWK Calcium Acetate (Phoslo 667 Mg), 3 CAP PO 3XWK Calcium Acetate (Phoslo 667 Mg), 3 CAP PO 4XWK Escitalopram (Lexapro), 10 MG PO 3XWK Escitalopram (Lexapro), 10 MG PO 4XWK Finasteride (Proscar), 5 MG PO 3XWK Finasteride (Proscar), 5 MG PO 4XWK Fludrocortisone Acetate (Florinef), 0.1 MG PO 3XWK Fludrocortisone Acetate (Fludrocortisone Acetate), 0.1 MG PO 4XWK Gabapentin (Neurontin), 400 MG PO 3XWK Gabapentin (Neurontin), 400 MG PO 4XWK Lactobacillus Acidophilus (Lactinex), 1 TAB PO 3XWK Lactobacillus Acidophilus (Lactinex), 1 TAB PO 4XWK Latanoprost (Xalatan 0.005% Oph Katya), 1 DROP OPL HS Levothyroxine Sodium (Synthroid), 100 MCG PO DAILY Midodrine (Midodrine HCl), 2.5 MG PO TID Omeprazole (Prilosec), 40 MG PO 3XWK Omeprazole (Prilosec), 40 MG PO 4XWK Sucralfate (Carafate), 1 GM PO 3XWK Sucralfate (Carafate), 1 GM PO 4XWK Scheduled PRN Acetaminophen (Tylenol), 1 SUPP PA Q6H PRN for Mild Pain/Fever Acetaminophen Tab (Tylenol), 650 MG PO Q6H PRN for Mild Pain/Fever Bisacodyl (Dulcolax), 1 SUPP PA UD PRN for Constipation Magnesium Hydroxide (Milk Of Magnesia), 30 ML PO UD PRN for Constipation Oxycodone/Acetaminophen 5MG/325MG (Percocet 5MG/325MG), 1 TABLET PO Q4H PRN for Pain Polyethylene Glycol 3350 (Bulk (Polyethylene Glycol 3350), 17 GM PO Q24H PRN for Constipation Sodium Phosphate/Biphosphate (Fleet Enema), 1 EA PA UD PRN for Constipation Review of Systems The patient denies chest pain, palpitations, shortness of breath, cough, lower extremity swelling, vision change, hearing change, sore throat, fevers, chills, sweats, weight change, nausea, vomiting, constipation, abdominal pain, pelvic pain, blood in urine or stool, dysuria, urinary frequency or urgency, headache , memory loss, rash, abnormal bruising or bleeding, focal weakness, numbness or tingling in arms or legs, generalized arthralgias or myalgias, back or neck pain , night sweats, or allergy symptoms. The review of systems is otherwise negative other than for that already noted above, and at least 10 systems have been reviewed. Physical Exam Vital Signs Date Time Temp Pulse Resp B/P (MAP) Pulse Ox O2 Delivery O2 Flow Rate FiO2 02/08/17 22:56 02/08/17 22:26 63 14 74/38 98 Nasal Cannula 3.0 98 02/08/17 22:20 55/32 02/08/17 22:15 76/42 02/08/17 22:10 63 15 95 Nasal Cannula 3.0 02/08/17 22:00 71/45 02/08/17 21:55 59 10 02/08/17 21:50 65 14 94 Nasal Cannula 3.0 02/08/17 21:45 75/49 02/08/17 21:35 66 15 93 Nasal Cannula 3.0 02/08/17 21:30 75/44 02/08/17 21:20 69 14 02/08/17 21:15 72/44 02/08/17 21:05 69 13 90 Nasal Cannula 3.0 02/08/17 21:02 69/45 02/08/17 21:00 68/41 02/08/17 20:50 67 14 94 Nasal Cannula 3.0 02/08/17 20:45 63/41 02/08/17 20:35 70 16 97 Nasal Cannula 3.0 02/08/17 20:30 68/39 02/08/17 20:27 75 15 93 Nasal Cannula 3.0 02/08/17 20:15 64/42 02/08/17 20:12 74 13 92 Nasal Cannula 3.0 02/08/17 20:07 74 18 91 Nasal Cannula 3.0 02/08/17 20:00 64/43 02/08/17 19:52 72 13 90 Nasal Cannula 3.0 02/08/17 19:47 02/08/17 19:15 58/37 02/08/17 19:07 91 Nasal Cannula 3.0 02/08/17 19:06 69 14 91 Nasal Cannula 3.0 02/08/17 19:01 62/35 02/08/17 18:55 73 16 90 Nasal Cannula 3.0 02/08/17 18:45 66/44 02/08/17 18:40 70 16 91 Nasal Cannula 3.0 02/08/17 18:30 65/42 02/08/17 18:25 76 14 93 02/08/17 18:16 60/43 02/08/17 18:12 75 02/08/17 18:12 36.9 78 16 61/37 87 Room Air 02/08/17 18:09 90/51 The patient is awake, well-developed and adequately nourished, alert and oriented 3, normocephalic and atraumatic, lying in bed and in no acute distress. HEENT--PERRL, EOMI, mucous membranes and oropharynx dry. Neck--supple, no JVD or bruits, thyroid normal, trachea midline, no adenopathy. Heart--normal S1 and S2, no extra beats, no murmurs, rubs or gallops. Lungs--clear bilaterally with good air movement, no respiratory distress, no accessory muscle use. Abdomen--normal bowel sounds and soft, nontender and nondistended, no hernias or masses, no organomegaly. Extremities--no cyanosis, clubbing or edema. There are good distal pulses b/l. Dermatologic--normal skin turgor, normal color, warm and dry, no abnormal lymph nodes, no rash. Neurologic--cranial nerves II through XII grossly intact. Rheumatologic--left BKA. Psychiatric--normal affect. Diagnostics Laboratory Results Results Past 24 Hours Test 02/08/17 18:40 02/08/17 18:49 Range/Units White Blood Count 4.71 4.8-10.8 K/uL Red Blood Count 3.63 4.7-6.1 M/uL Hemoglobin 10.9 14.0-18.0 g/dL Hematocrit 34.6 42-52 % Mean Corpuscular Volume 95.3 80-100 fL Mean Corpuscular Hemoglobin 30.0 25-34 pg Mean Corpuscular Hemoglobin Concent 31.5 32-36 g/dl Platelet Count 191 130-400 K/uL Mean Platelet Volume 10.2 7.4-10.4 fL Neutrophils (%) (Auto) 62.4 % Lymphocytes (%) (Auto) 22.7 % Monocytes (%) (Auto) 13.4 % Eosinophils (%) (Auto) 1.1 % Basophils (%) (Auto) 0.2 % Neutrophils # (Auto) 2.94 1.4-6.5 K/uL Lymphocytes # (Auto) 1.07 1.2-3.4 K/uL Monocytes # (Auto) 0.63 0.11-0.59 K/uL Eosinophils # (Auto) 0.05 0-0.5 K/uL Basophils # (Auto) 0.01 0-0.2 K/uL RDW Standard Deviation 56.8 36.4-46.3 fL RDW Coefficient of Variation 16.4 11.5-14.5 % Immature Granulocyte % (Auto) 0.2 % Immature Granulocyte # (Auto) 0.01 0.00-0.02 K/uL Sodium Level 131 136-145 mmol/L Potassium Level 3.5 3.5-5.1 mmol/L Chloride Level 95 98-107 mmol/L Carbon Dioxide Level 29 21-32 mmol/L Anion Gap 7.0 3-11 mmol/L Blood Urea Nitrogen 26 7-18 mg/dl Creatinine 4.50 0.60-1.40 mg/dl Est Creatinine Clear Calc Drug Dose 18.0 ml/min Estimated GFR () 15.4 Estimated GFR (Non- 13.3 BUN/Creatinine Ratio 5.7 10-20 Random Glucose 109 70-99 mg/dl Calcium Level 8.8 8.5-10.1 mg/dl Total Bilirubin 0.6 0.2-1 mg/dl Aspartate Amino Transf (AST/SGOT) 18 15-37 U/L Alanine Aminotransferase (ALT/SGPT) 34 12-78 U/L Alkaline Phosphatase 88 45-117 U/L Total Protein 7.4 6.4-8.2 gm/dl Albumin 2.8 3.4-5.0 gm/dl Globulin 4.6 2.5-4.0 gm/dl Albumin/Globulin Ratio 0.6 0.9-2 Bedside Lactic Acid Venous 1.30 0.90-1.70 mmol/L Microbiology Results 02/08/17 Blood Culture, Received Pending 02/08/17 Blood Culture, Received Pending 02/08/17 C.difficile Toxin B Gene (PCR), Received Pending 02/08/17 Shiga Toxin Test, Received Pending 02/08/17 Stool Culture, Received Pending Diagnostic Radiology Patient Name: ASHLEY CANTU Unit Number: [id number] Dictated: 02/08/171957 Transcribed: 02/08/171957 MS Printed Date/Time: [~ rep prt dt]/[~ rep prt tm] [~ rep ct labl] - [~ rep ct ivnm] [facility] [place] [address] Dictated: 02/08/171957 Transcribed: 02/08/171957 MS Printed Date/Time: [~ rep prt dt]/[~ rep prt tm] [~ rep ct labl] - [~ rep ct ivnm] CHEST ONE VIEW PORTABLE CLINICAL HISTORY: hypotension dyspnea COMPARISON STUDY: 02/01/2017 FINDINGS: Mild chronic left basilar interstitial prominence. Lungs otherwise appear clear. Central catheter in superior vena cava. IMPRESSION: Mild left basilar chronic interstitial change versus mild infiltrative change. Lungs otherwise are clear The above report was generated using voice recognition software. It may contain grammatical, syntax or spelling errors. Electronically signed by: Ashley Artuhr M.D. 02/08/2017 7:59 PM Dictated Date/Time: 02/08/2017 7:58 PM The status of this report is Signed. Draft = Not yet reviewed or approved by Radiologist. Signed = Reviewed and approved by Radiologist. <AttendingPhy></AttendingPhy> <FamilyPhy>[facility]</FamilyPhy > <PrimaryPhy>Everton Kahn M.D.</PrimaryPhy> <UnitNumber>[id number]</ UnitNumber> <VisitNumber>[id number]</VisitNumber> <PatientName>ASHLEY CANTU</ PatientName> <DateOfBirth>1955</DateOfBirth> <Location>[facility]</Location> < ServiceDate>02/08/17</ServiceDate> <MNE>ESINDI</MNE> <OrderingPhy>PheIvonne jama S DO</OrderingPhy> <OrderingPhyMNE>f rep ord dr serrato</OrderingPhyMNE> < DictatingPhyMNE>f rep dict dr serrato</DictatingPhyMNE> <CCListMNE>f rep ct mne</ CCListMNE> <AdmittingPhyMNE>f pt admit dr serrato</AdmittingPhyMNE> <AttendingPhyMNE >f pt attend dr serrato</AttendingPhyMNE> <ConsultingPhyMNE>f pt consult dr serrato</ConsultingPhyMNE> <FamilyPhyMNE>f pt fam dr serrato</FamilyPhyMNE> <OtherPhyMNE>f pt other dr serrato</OtherPhyMNE> < PrimaryPhyMNE>f pt prim care dr serrato</PrimaryPhyMNE> <ReferringPhyMNE>f pt referring dr serrato</ReferringPhyMNE> EKG EKG shows normal sinus rhythm at 74 bpm, first-degree heart block, left anterior fascicular block, old septal infarct Impression Assessment and Plan Sepsis/hypotension/dehydration post dialysis-- The patient will be admitted to telemetry for serial cardiac enzymes, cardiac rhythm monitoring and a 2-D echocardiogram with Dopplers. Vancomycin IV, Zosyn IV, levofloxacin IV Blood pressure in the ED was down to 64/40 at one time. Received 500 ML's normal saline in the ED Normal saline at 50 ML's per hour. Continue midodrine and flurinef. He is Increase Floranex. GERD-- Continue Carafate. Change omeprazole to pantoprazole. Hypothyroidism-- Continue levothyroxin. GPN-- Continue gabapentin. BPH-- Continue finasteride Anxiety/depression-- Continue Lexapro Continue Apixiban Level of Care Telemetry Advanced Directives Existing Advance Directive: No Existing Living Will: No Existing Power of Phlebotomy Support Tech: No Resuscitation Status FULL RESUSCITATION VTE Prophylaxis VTE Risk Assessment Done? Y/N: Yes Risk Level: Moderate Given or contraindicated: Other Anticoagulation (apixiban)
[2017-02-08] MEDS: SODIUM CHLORIDE 0.9% 1000ML 1,000 ML IV SCH (23:30)
[2017-02-09] VITALS (8 sets, daily range): BP systolic 60–91; BP diastolic 32–60; PULSE 53–61; TEMP 35.6–36.7; O2SAT 90–100
[2017-02-09] MEDS ORDERED: VANCOMYCIN CONSULT ACTIVE PRN (05:15)
[2017-02-09] MEDS ORDERED: PIPERACILL/TAZOBAC CONSULT ACTIVE PRN (05:15)
[2017-02-09] MEDS ORDERED: PIPERACILL/TAZOBAC IV 3.375 GM in DEXTROSE 5% 100ML 100 ML IV SCH (06:00)
[2017-02-09] MEDS: INSULIN ASPART 100 UNITS/ML 3 ML PEN SC SCH ×4 (07:00→21:00)
[2017-02-09 07:45] LABS: BASO % 0.2 %; BASO ABS # 0.01 K/uL (0-0.2); COMPLETE YES; EOS % 1.5 %; HEMATOCRIT 33.3 % (42-52); IG% 0.2 %; LYMPH % 20.9 %; LYMPH ABS # 0.97 K/uL (1.2-3.4); MEAN CORPUSCULAR HEMOGLOBIN 29.4 pg (25-34); MEAN CORPUSCULAR HGB CONC 30.6 g/dl (32-36); MEAN PLATELET VOLUME 10.4 fL (7.4-10.4); MONO % 18.3 %; NEUT % 58.9 %; PLATELET COUNT 190 K/uL (130-400); RED BLOOD COUNT 3.47 M/uL (4.7-6.1); WHITE BLOOD COUNT 4.64 K/uL (4.8-10.8)
[2017-02-09 08:07] LABS: PARTIAL THROMBOPLASTIN RATIO 1.2; PROTHROMBIN TIME (PATIENT) 10.8 SECONDS (9.0-12.0)
[2017-02-09] MEDS: LACTOBACILLUS ACIDOPHILUS (FLORANEX) TAB PO SCH ×3 (08:31→16:28)
[2017-02-09] MEDS: SUCRALFATE 1 GM TAB PO SCH ×2 (08:32→21:14)
[2017-02-09] MEDS: MIDODRINE 2.5 MG TAB PO SCH ×3 (08:32→17:31)
[2017-02-09] MEDS: ESCITALOPRAM OXALATE 10 MG TAB PO SCH (08:33)
[2017-02-09] MEDS: FLUDROCORTISONE ACETATE 0.1 MG TAB PO SCH (08:33)
[2017-02-09] MEDS: GABAPENTIN 400 MG CAP PO SCH ×3 (08:33→21:14)
[2017-02-09] MEDS: APIXABAN 2.5 MG TAB PO SCH ×2 (08:33→21:14)
[2017-02-09] MEDS: CALCIUM ACETATE 667MG GELCAP PO SCH ×3 (08:34→21:00)
[2017-02-09] MEDS: FINASTERIDE 5 MG TAB PO SCH (08:34)
[2017-02-09] MEDS: PANTOprazole SOD 40 MG TAB PO SCH (08:34)
[2017-02-09] MEDS: VITAMIN B COMPLEX TAB PO SCH (08:35)
[2017-02-09 08:48] LABS: BUN/CREATININE RATIO 5.9 (10-20); CALCIUM 8.6 mg/dl (8.5-10.1); CREATININE 5.2 mg/dl (0.60-1.40); MAGNESIUM 2.1 mg/dl (1.8-2.4); POTASSIUM 3.6 mmol/L (3.5-5.1)
[2017-02-09] MEDS: ONDANSETRON INJ 2 MG/ML 2 ML VIAL IV PRN (08:56)
[2017-02-09] MEDS: PIPERACILL/TAZOBAC IV 3.375 GM in DEXTROSE 5% 100ML IV SCH ×2 (12:31→23:39)
--- NOTE | 2017-02-09 13:14 | Pharmacy Progress Note ---
Pharmacy Antibiotic Consult Date of Service: Feb 09, 2017. Pharmacy Dosing Scope Pharmacy is consulted to initiate vancomycin/zosyn IV dosing therapy, order appropriate labs and adjust drug dose/frequency. Subjective The patient is a 61 year old male admitted on Feb 08, 2017 at 22:09. Objective Height (Feet): 5 Height (Inches): 8.00 Weight (Kilograms): 79.500 Lab Results (24hrs): Test 02/08/17 18:40 02/08/17 18:49 02/09/17 06:34 02/09/17 07:24 White Blood Count 4.71 K/uL (4.8-10.8) 4.64 K/uL (4.8-10.8) Red Blood Count 3.63 M/uL (4.7-6.1) 3.47 M/uL (4.7-6.1) Hemoglobin 10.9 g/dL (14.0-18.0) 10.2 g/dL (14.0-18.0) Hematocrit 34.6 % (42-52) 33.3 % (42-52) Mean Corpuscular Volume 95.3 fL (80-100) 96.0 fL (80-100) Mean Corpuscular Hemoglobin 30.0 pg (25-34) 29.4 pg (25-34) Mean Corpuscular Hemoglobin Concent 31.5 g/dl (32-36) 30.6 g/dl (32-36) Platelet Count 191 K/uL (130-400) 190 K/uL (130-400) Mean Platelet Volume 10.2 fL (7.4-10.4) 10.4 fL (7.4-10.4) Neutrophils (%) (Auto) 62.4 % 58.9 % Lymphocytes (%) (Auto) 22.7 % 20.9 % Monocytes (%) (Auto) 13.4 % 18.3 % Eosinophils (%) (Auto) 1.1 % 1.5 % Basophils (%) (Auto) 0.2 % 0.2 % Neutrophils # (Auto) 2.94 K/uL (1.4-6.5) 2.73 K/uL (1.4-6.5) Lymphocytes # (Auto) 1.07 K/uL (1.2-3.4) 0.97 K/uL (1.2-3.4) Monocytes # (Auto) 0.63 K/uL (0.11-0.59) 0.85 K/uL (0.11-0.59) Eosinophils # (Auto) 0.05 K/uL (0-0.5) 0.07 K/uL (0-0.5) Basophils # (Auto) 0.01 K/uL (0-0.2) 0.01 K/uL (0-0.2) RDW Standard Deviation 56.8 fL (36.4-46.3) 56.9 fL (36.4-46.3) RDW Coefficient of Variation 16.4 % (11.5-14.5) 16.3 % (11.5-14.5) Immature Granulocyte % (Auto) 0.2 % 0.2 % Immature Granulocyte # (Auto) 0.01 K/uL (0.00-0.02) 0.01 K/uL (0.00-0.02) Sodium Level 131 mmol/L (136-145) 132 mmol/L (136-145) Potassium Level 3.5 mmol/L (3.5-5.1) 3.6 mmol/L (3.5-5.1) Chloride Level 95 mmol/L (98-107) 95 mmol/L (98-107) Carbon Dioxide Level 29 mmol/L (21-32) 26 mmol/L (21-32) Anion Gap 7.0 mmol/L (3-11) 11.0 mmol/L (3-11) Blood Urea Nitrogen 26 mg/dl (7-18) 31 mg/dl (7-18) Creatinine 4.50 mg/dl (0.60-1.40) 5.20 mg/dl (0.60-1.40) Est Creatinine Clear Calc Drug Dose 18.0 ml/min 14.8 ml/min Estimated GFR () 15.4 13.0 Estimated GFR (Non- 13.3 11.2 BUN/Creatinine Ratio 5.7 (10-20) 5.9 (10-20) Random Glucose 109 mg/dl (70-99) 80 mg/dl (70-99) Calcium Level 8.8 mg/dl (8.5-10.1) 8.6 mg/dl (8.5-10.1) Total Bilirubin 0.6 mg/dl (0.2-1) 0.7 mg/dl (0.2-1) Aspartate Amino Transf (AST/SGOT) 18 U/L (15-37) 18 U/L (15-37) Alanine Aminotransferase (ALT/SGPT) 34 U/L (12-78) 29 U/L (12-78) Alkaline Phosphatase 88 U/L (45-117) 69 U/L (45-117) Total Protein 7.4 gm/dl (6.4-8.2) 7.0 gm/dl (6.4-8.2) Albumin 2.8 gm/dl (3.4-5.0) 2.8 gm/dl (3.4-5.0) Globulin 4.6 gm/dl (2.5-4.0) Albumin/Globulin Ratio 0.6 (0.9-2) Bedside Lactic Acid Venous 1.30 mmol/L (0.90-1.70) Bedside Glucose 85 mg/dl (70-99) Prothrombin Time 10.8 SECONDS (9.0-12.0) Prothromb Time International Ratio 1.0 (0.9-1.1) Activated Partial Thromboplast Time 32.0 SECONDS (21.0-31.0) Partial Thromboplastin Ratio 1.2 Magnesium Level 2.1 mg/dl (1.8-2.4) Direct Bilirubin 0.2 mg/dl (0-0.2) Test 02/09/17 10:47 Random Vancomycin Level 11.9 mcg/ml Micro Results: Date/Time Source Procedure Growth Status 02/08/17 22:06 Blood Blood Culture Pending Received 02/08/17 22:05 Blood Blood Culture Pending Received 02/08/17 22:40 Stool C.difficile Toxin B Gene (PCR) - Final No C. difficile toxin B gene detected Complete 02/08/17 22:40 Stool Shiga Toxin Test Pending Received 02/08/17 22:40 Stool Stool Culture Pending Received Assessment & Plan Assessment: 61 yo male with recent admission 01/30-02/03 presented with low blood pressure after dialysis in the AM. Vancomycin/zosyn started empirically- was on doxycycline after recent admission for low blood pressure and pneumonia. Plan: Received 1000 mg vancomycin in the ED Random level this AM 11.9 Will redose with 750 mg to achieve peak and recheck level prior to HD to assisst with dosing Pharmacy will continue to follow and will adjust dose/frequency as necessary. Thank you
[2017-02-09] MEDS ORDERED: VANCOMYCIN INJ 750 MG in SODIUM CHLORIDE 0.9% 250ML 250 ML IV ONE (14:00)
--- NOTE | 2017-02-09 15:20 | Progress Note ---
Subjective Date of Service: Feb 09, 2017. Subjective Pt evaluation today including: conversation w/ patient, physical exam, lab review, review of inpatient medication list Pain: denies pain PO Intake: poor appetite Voiding: no voiding problems patient laying flat in bed, feels weak no fever/chills, minimal cough, no dyspnea had HD yesterday, completed session no abdominal pain, no N/V/D or constipation reviewed previous admission, BP can trend in the 70's systolic reviewed labs, LA only 1.3 mentating normally despite hypotensive readings Problem List Medical Problems: (1) Abdominal pain Status: Acute (2) C. difficile colitis Status: Acute (3) Caregiver has difficulty performing caretaking Status: Acute (4) Colitis Status: Acute (5) Dehydration Status: Acute (6) Dependence on renal dialysis Status: Acute (7) Failure to thrive Status: Acute (8) Fever Status: Acute (9) Hypotension Status: Acute (10) Infection associated with peritoneal dialysis catheter Status: Acute (11) Lactic acidosis Status: Acute (12) Periumbilical abdominal pain Status: Acute (13) PNA (pneumonia) Status: Acute (14) Pneumonia involving right lung Status: Acute (15) Sepsis Status: Acute (16) Septic shock Status: Acute (17) Thoracic back pain Status: Acute (18) Vomiting Status: Acute (19) Weakness Status: Acute (20) Weakness Status: Acute Review of Systems Constitutional: + weakness, + fatigue Abdomen: + problem reported (no appetite) All Other Systems: Reviewed and Negative Medications Current Inpatient Medications Medications (Trade) Dose Ordered Sig/Rigoberto Route Start Time Stop Time Status Last Admin Dose Admin Sodium Chloride 1,000 ml @ 50 mls/hr Q20H IV 02/08/17 23:30 03/10/17 23:29 02/08/17 23:30 50 MLS/HR Zolpidem Tartrate (Ambien Tab) 5 mg HSZ PRN PO 02/08/17 22:15 03/10/17 22:14 Acetaminophen (Tylenol Tab) 650 mg Q6H PRN PO 02/08/17 22:15 03/10/17 22:14 Bisacodyl (Dulcolax Supp) 10 mg DAILY PRN [place] 02/08/17 22:15 03/10/17 22:14 Calcium Acetate (Phoslo Cap) 2,001 mg TID PO 02/09/17 09:00 03/11/17 08:59 02/09/17 08:34 2,001 MG Escitalopram Oxalate (Lexapro Tab) 10 mg DAILY PO 02/09/17 09:00 03/11/17 08:59 02/09/17 08:33 10 MG Finasteride (Proscar Tab) 5 mg DAILY PO 02/09/17 09:00 03/11/17 08:59 02/09/17 08:34 5 MG Fludrocortisone Acetate (Florinef Tab) 0.1 mg DAILY PO 02/09/17 09:00 03/11/17 08:59 02/09/17 08:33 0.1 MG Gabapentin (Neurontin Cap) 400 mg TID PO 02/09/17 09:00 03/11/17 08:59 02/09/17 08:33 400 MG Latanoprost (Xalatan Oph Soln) 1 drops HS OPL 02/09/17 21:00 03/11/17 20:59 Midodrine (Proamatine Tab) 2.5 mg TID@0800,1300,1800 PO 02/09/17 08:00 03/11/17 07:59 02/09/17 12:32 2.5 MG Sodium Biphosphate/ Sodium Phosphate (Fleet Enema) 132 ml DAILY PRN [place] 02/08/17 22:15 03/10/17 22:14 Sucralfate (Carafate Tab) 1 gm BID PO 02/09/17 09:00 03/11/17 08:59 02/09/17 08:32 1 GM Lactobacillus Acidophilus (Floranex Tab) 4 tab TIDM PO 02/09/17 07:30 03/11/17 07:59 02/09/17 11:30 4 TAB Apixaban (Eliquis Tab) 5 mg BID PO 02/09/17 09:00 03/11/17 08:59 02/09/17 08:33 5 MG Vitamin B Complex (Vitamin B Complex) 1 tab QAM PO 02/09/17 09:00 03/11/17 08:59 02/09/17 08:35 1 TAB Pantoprazole Sodium (Protonix Tab) 40 mg QAM PO 02/09/17 09:00 03/11/17 08:59 02/09/17 08:34 40 MG Polyethylene (Miralax Powder Packet) 17 gm DAILY PRN PO 02/08/17 22:15 03/10/17 22:14 Ondansetron HCl (Zofran Inj) 4 mg Q6H PRN IV 02/08/17 22:30 03/10/17 22:29 02/09/17 08:56 4 MG Insulin Aspart (novoLOG ASPART) SLIDING SCALE If C... ACHS SC 02/09/17 07:00 03/11/17 06:59 Glucose (Glucose 40% Gel) UD PRN PO 02/08/17 22:30 03/10/17 22:29 Glucose (Glucose Chew Tab) 1 tabs UD PRN PO 02/08/17 22:30 03/10/17 22:29 Dextrose (Dextrose 50% 50ML Syringe) 50 ml UD PRN IV 02/08/17 22:30 03/10/17 22:29 Glucagon (Glucagon Inj) 1 mg UD PRN SQ 02/08/17 22:30 03/10/17 22:29 Piperacillin Sod/ Tazobactam Sod (Consult) 1 ea UD PRN N/A 02/09/17 05:15 03/11/17 05:14 Vancomycin HCl (Consult) 1 ea UD PRN N/A 02/09/17 05:15 03/11/17 05:14 Piperacillin Sod/ Tazobactam Sod 3.375 gm/Dextrose 115 ml @ 28.75 mls/ hr Q12H IV 02/09/17 11:00 02/11/17 10:59 02/09/17 12:31 28.75 MLS/HR Vancomycin HCl 750 mg/Sodium Chloride 265 ml @ 125 mls/hr 02/09/17@1400 ONCE IV 02/09/17 14:00 02/09/17 16:07 02/09/17 14:50 125 MLS/HR Objective Vital Signs Date Time Temp Pulse Resp B/P (MAP) Pulse Ox O2 Delivery O2 Flow Rate FiO2 02/09/17 11:38 36.5 57 18 70/34 (46) 94 Oxymask 8.0 02/09/17 08:00 Oxymask 8.0 02/09/17 07:43 36.0 58 18 63/35 (44) 91 Oxymask 8.0 02/09/17 06:13 58 20 91/60 (70) 92 Oxymask 5.0 02/09/17 04:00 Oxymask 8.0 02/09/17 03:40 35.6 57 15 73/45 (54) 97 Oxymask 8.0 02/09/17 00:19 61 16 60/34 (43) 92 Oxymask 8.0 02/08/17 23:45 Mask 8.0 02/08/17 23:10 36.8 60 18 50/27 02/08/17 22:56 02/08/17 22:26 63 14 74/38 98 Nasal Cannula 3.0 98 02/08/17 22:20 55/32 02/08/17 22:15 76/42 02/08/17 22:10 63 15 95 Nasal Cannula 3.0 02/08/17 22:00 71/45 02/08/17 21:55 59 10 02/08/17 21:50 65 14 94 Nasal Cannula 3.0 02/08/17 21:45 75/49 02/08/17 21:35 66 15 93 Nasal Cannula 3.0 02/08/17 21:30 75/44 02/08/17 21:20 69 14 02/08/17 21:15 72/44 02/08/17 21:05 69 13 90 Nasal Cannula 3.0 02/08/17 21:02 69/45 02/08/17 21:00 68/41 02/08/17 20:50 67 14 94 Nasal Cannula 3.0 02/08/17 20:45 63/41 02/08/17 20:35 70 16 97 Nasal Cannula 3.0 02/08/17 20:30 68/39 02/08/17 20:27 75 15 93 Nasal Cannula 3.0 02/08/17 20:15 64/42 02/08/17 20:12 74 13 92 Nasal Cannula 3.0 02/08/17 20:07 74 18 91 Nasal Cannula 3.0 02/08/17 20:00 64/43 02/08/17 19:52 72 13 90 Nasal Cannula 3.0 02/08/17 19:47 02/08/17 19:15 58/37 02/08/17 19:07 91 Nasal Cannula 3.0 02/08/17 19:06 69 14 91 Nasal Cannula 3.0 02/08/17 19:01 62/35 02/08/17 18:55 73 16 90 Nasal Cannula 3.0 02/08/17 18:45 66/44 02/08/17 18:40 70 16 91 Nasal Cannula 3.0 02/08/17 18:30 65/42 02/08/17 18:25 76 14 93 02/08/17 18:16 60/43 02/08/17 18:12 75 02/08/17 18:12 36.9 78 16 61/37 87 Room Air 02/08/17 18:09 90/51 Physical Exam General Appearance: WD/WN, no apparent distress Eyes: normal inspection, EOMI, sclerae normal Neck: supple, no adenopathy, no JVD, trachea midline Respiratory/Chest: chest non-tender, lungs clear, no respiratory distress, no accessory muscle use, + decreased breath sounds (bases) Cardiovascular: regular rate, rhythm, no edema, no gallop, no JVD, no murmur Abdomen: normal bowel sounds, non tender, soft, no organomegaly Extremities: normal range of motion, non-tender, normal inspection, no pedal edema, no calf tenderness, pelvis stable Neurologic/Psychiatric: sales specialist II-XII nml as tested, alert, normal mood/affect, oriented x 3, + motor weakness (generalized) Laboratory Results Last 24 Hours Test 02/08/17 18:40 02/08/17 18:49 02/09/17 06:34 02/09/17 07:24 White Blood Count 4.71 K/uL 4.64 K/uL Red Blood Count 3.63 M/uL 3.47 M/uL Hemoglobin 10.9 g/dL 10.2 g/dL Hematocrit 34.6 % 33.3 % Mean Corpuscular Volume 95.3 fL 96.0 fL Mean Corpuscular Hemoglobin 30.0 pg 29.4 pg Mean Corpuscular Hemoglobin Concent 31.5 g/dl 30.6 g/dl Platelet Count 191 K/uL 190 K/uL Mean Platelet Volume 10.2 fL 10.4 fL Neutrophils (%) (Auto) 62.4 % 58.9 % Lymphocytes (%) (Auto) 22.7 % 20.9 % Monocytes (%) (Auto) 13.4 % 18.3 % Eosinophils (%) (Auto) 1.1 % 1.5 % Basophils (%) (Auto) 0.2 % 0.2 % Neutrophils # (Auto) 2.94 K/uL 2.73 K/uL Lymphocytes # (Auto) 1.07 K/uL 0.97 K/uL Monocytes # (Auto) 0.63 K/uL 0.85 K/uL Eosinophils # (Auto) 0.05 K/uL 0.07 K/uL Basophils # (Auto) 0.01 K/uL 0.01 K/uL RDW Standard Deviation 56.8 fL 56.9 fL RDW Coefficient of Variation 16.4 % 16.3 % Immature Granulocyte % (Auto) 0.2 % 0.2 % Immature Granulocyte # (Auto) 0.01 K/uL 0.01 K/uL Sodium Level 131 mmol/L 132 mmol/L Potassium Level 3.5 mmol/L 3.6 mmol/L Chloride Level 95 mmol/L 95 mmol/L Carbon Dioxide Level 29 mmol/L 26 mmol/L Anion Gap 7.0 mmol/L 11.0 mmol/L Blood Urea Nitrogen 26 mg/dl 31 mg/dl Creatinine 4.50 mg/dl 5.20 mg/dl Est Creatinine Clear Calc Drug Dose 18.0 ml/min 14.8 ml/min Estimated GFR () 15.4 13.0 Estimated GFR (Non- 13.3 11.2 BUN/Creatinine Ratio 5.7 5.9 Random Glucose 109 mg/dl 80 mg/dl Calcium Level 8.8 mg/dl 8.6 mg/dl Total Bilirubin 0.6 mg/dl 0.7 mg/dl Aspartate Amino Transf (AST/SGOT) 18 U/L 18 U/L Alanine Aminotransferase (ALT/SGPT) 34 U/L 29 U/L Alkaline Phosphatase 88 U/L 69 U/L Total Protein 7.4 gm/dl 7.0 gm/dl Albumin 2.8 gm/dl 2.8 gm/dl Globulin 4.6 gm/dl Albumin/Globulin Ratio 0.6 Bedside Lactic Acid Venous 1.30 mmol/L Bedside Glucose 85 mg/dl Prothrombin Time 10.8 SECONDS Prothromb Time International Ratio 1.0 Activated Partial Thromboplast Time 32.0 SECONDS Partial Thromboplastin Ratio 1.2 Magnesium Level 2.1 mg/dl Direct Bilirubin 0.2 mg/dl Test 02/09/17 10:47 02/09/17 11:23 Random Vancomycin Level 11.9 mcg/ml Bedside Glucose 85 mg/dl Assessment and Plan 61 yo male with ESRD on HD MWF, recent admission for pneumonia, returns with weakness, hypotension, possible recurrent pneumonia - Sepsis with hypotension, no signs of shock secondary to pneumonia continue Vanco, Zosyn and Levaquin, renally dosed for ESRD BP continues to trend low but normal mentation, palpable pulses, normal LA continue gentle fluids as we want to avoid overload with HD patient continue Midodrine and Florinef GERD-- Continue Carafate. Change omeprazole to pantoprazole. Hypothyroidism-- Continue levothyroxin. GPN-- Continue gabapentin. BPH-- Continue finasteride Anxiety/depression-- Continue Lexapro Continue Apixiban continue tele today
[2017-02-09 16:19] LABS: CALCIUM 8.8 mg/dl (8.5-10.1); CREATININE 5.8 mg/dl (0.60-1.40); POTASSIUM 3.9 mmol/L (3.5-5.1)
[2017-02-09] MEDS: LATANOPROST 0.005% OP SOLN 2.5 ML BTL OPL SCH (21:14)
[2017-02-09] MEDS: SODIUM CHLORIDE 0.9% 1000ML 1,000 ML IV SCH (23:39)
[2017-02-10] VITALS (10 sets, daily range): BP systolic 65–144; BP diastolic 36–97; PULSE 51–56; TEMP 36.5–36.8; O2SAT 98–100
[2017-02-10] MEDS: INSULIN ASPART 100 UNITS/ML 3 ML PEN SC SCH ×4 (07:00→20:36)
[2017-02-10 07:49] LABS: BASO % 0.4 %; BASO ABS # 0.02 K/uL (0-0.2); COMPLETE YES; EOS % 1.9 %; HEMATOCRIT 32.6 % (42-52); IG% 0.2 %; LYMPH % 15.9 %; LYMPH ABS # 0.74 K/uL (1.2-3.4); MEAN CELL VOLUME 93.7 fL (80-100); MEAN PLATELET VOLUME 10.6 fL (7.4-10.4); MONO % 15.1 %; NEUT % 66.5 %; PLATELET COUNT 199 K/uL (130-400); RED BLOOD COUNT 3.48 M/uL (4.7-6.1); WHITE BLOOD COUNT 4.64 K/uL (4.8-10.8)
[2017-02-10 08:04] LABS: PARTIAL THROMBOPLASTIN RATIO 1.1
[2017-02-10] MEDS: LACTOBACILLUS ACIDOPHILUS (FLORANEX) TAB PO SCH ×3 (08:50→16:27)
[2017-02-10] MEDS: APIXABAN 2.5 MG TAB PO SCH ×2 (08:51→20:27)
[2017-02-10] MEDS: MIDODRINE 2.5 MG TAB PO SCH ×3 (08:51→17:46)
[2017-02-10] MEDS: SUCRALFATE 1 GM TAB PO SCH ×2 (08:51→20:27)
[2017-02-10] MEDS: FLUDROCORTISONE ACETATE 0.1 MG TAB PO SCH (08:52)
[2017-02-10] MEDS: ESCITALOPRAM OXALATE 10 MG TAB PO SCH (08:52)
[2017-02-10] MEDS: GABAPENTIN 400 MG CAP PO SCH ×3 (08:53→20:28)
[2017-02-10] MEDS: FINASTERIDE 5 MG TAB PO SCH (08:54)
[2017-02-10] MEDS: PANTOprazole SOD 40 MG TAB PO SCH (08:54)
[2017-02-10] MEDS: CALCIUM ACETATE 667MG GELCAP PO SCH ×3 (08:54→16:27)
[2017-02-10] MEDS: VITAMIN B COMPLEX TAB PO SCH (08:55)
[2017-02-10 08:58] LABS: BUN/CREATININE RATIO 6.2 (10-20); CALCIUM 8.8 mg/dl (8.5-10.1); POTASSIUM 4.2 mmol/L (3.5-5.1)
[2017-02-10 08:59] LABS: MAGNESIUM 2.3 mg/dl (1.8-2.4)
[2017-02-10] MEDS ORDERED: SODIUM CHLORIDE 0.9% 500ML 500 ML IV ONE (09:15)
[2017-02-10] MEDS: SODIUM CHLORIDE 0.9% 1000ML 1,000 ML IV SCH (11:15)
[2017-02-10] MEDS ORDERED: Augmentin: PHARMACY CONSULT IN PROGRESS PRN (11:30)
[2017-02-10] MEDS ORDERED: AMOXICILLIN/CLAVULANATE TAB 500 MG TAB PO SCH (12:00)
[2017-02-10] MEDS ORDERED: HYDROCORTISONE IV 50 MG in SYRINGE 0 ML IV ONE (12:45)
--- NOTE | 2017-02-10 13:57 | NEPHROLOGY CONSULTATION ---
DATE OF CONSULTATION: 02/10/2017 ATTENDING OF RECORD: Dr. Bergeron. REASON FOR CONSULTATION: End-stage renal disease with low blood pressure. HISTORY OF PRESENT ILLNESS: This is a 61-year-old male who was recently in the hospital for pneumonia and discharged last Saturday. The patient has been having diarrhea and weight gains have not been significant. The patient was seen Saturday on dialysis and looked weak at that time. The patient has been very fatigued and comes in on Saturday secondary to low blood pressures. This morning, the patient is feeling much better, eating lunch, and currently getting a 500-mL fluid bolus. Systolic blood pressures have been in the 60-80 range. The patient though denies any lightheadedness or any significant complaints at this time. We have been getting blood pressures in the arm, although in dialysis, he gets blood pressures taken in the right lower extremity in the thigh region. ROS: no fevers or chills, +fatigue, +weakness, +diarrhea, no anorexia, no n/v, no itching, no difficulty with vision, no rash, no chest pain, no sob. all other review of systems otherwise negative PAST MEDICAL HISTORY: Heart disease, congestive heart failure, diabetes, end-stage renal disease, history of stroke, history of C. diff colitis, hypertension, hyperlipidemia, and hypothyroidism. PAST SURGICAL HISTORY: Gastric bypass, cholecystectomy, hip arthroplasty, left BKA, multiple fistula placements and tunneled dialysis catheter placements. FAMILY HISTORY: Significant for heart disease. SOCIAL HISTORY: Former smoker. No alcohol and no drugs. Lives at [facility]. CURRENT MEDICATIONS: Augmentin 500 mg p.o. daily, PhosLo 3 p.o. t.i.d., Lexapro 10 mg daily, Proscar 5 mg daily, Florinef 0.1 mg daily, Neurontin 400 mg p.o. t.i.d., Carafate 1 gram p.o. b.i.d., Eliquis 5 mg p.o. b.i.d., vitamin B 1 tab daily, Protonix 40 mg daily, midodrine 2.5 mg 3 times a day, and normal saline at 50 mL an hour. PHYSICAL EXAMINATION: VITAL SIGNS: Temperature 36.6, pulse 56, respiratory rate 18, blood pressure 85/52, and satting 99% on 7 liter OxyMask. GENERAL: Awake, alert, and oriented x3 with a left eyelid droop. EYES: ____ scleral icterus. HEENT: Moist mucous membranes. NECK: Supple. PULMONARY: Clear to auscultation. CARDIAC: Simone. ABDOMEN: Bowel sounds positive. Soft and nontender. EXTREMITIES: Left BKA. NEUROLOGICALLY: Nonfocal. DERMATOLOGIC: No rash or ulcers noted. LABORATORIES: White count is 4, H&H 10 and 32, and platelet count 199. Sodium level is 133, potassium 4.2, chloride is 98, bicarb is 25, BUN is 43, creatinine 7, glucose 77, calcium is 8.8, and mag is 2.3. Albumin is 2.5. Vancomycin level is good at 20. INR is 1. C. diff is negative. Blood cultures negative. Stool cultures are pending. Chest x-ray shows mild left basilar chronic interstitial change versus mild infiltrative change. Lungs otherwise clear. IMPRESSION AND PLAN: 1. End-stage renal disease. No indication for emergent dialysis today. We will plan on dialysis tomorrow. No fluid removal secondary to volume status appearing adequate and with the low blood pressures, would like to hold off on fluid removal. We will try to help raise the blood pressures. 2. Hypotension. Random cortisol during last admission was good at 21. Thyroid levels were also good at 1.1. The patient did receive 1 dose of hydrocortisone 50 mg during previous admission. In the past, the patient has responded favorably to intermittent doses of hydrocortisone irregardless of the cortisol level. I will discuss further with primary hospitalist to see if they feel comfortable giving a dose of hydrocortisone or not. The difficulty with the patient is he has significant vascular disease, so it is difficult to obtain an accurate blood pressure on this patient. In dialysis, we normally check blood pressure in his right upper thigh and discussed further with the nurse about obtaining blood pressure from there as opposed to the arm. We will aim for a goal systolic in the 90s. Okay with the fluids at this time, although we will monitor for signs of fluid overload. Clinically, the patient looks very alert. No lightheadedness. No complaints at all at this time. Appetite is good. The patient was quite fatigued yesterday. I do not feel the patient has an underlying infection and my recommendation will be to stop antibiotics; however, respectfully defer to the primary hospitalist. Question would be increasing the midodrine from 2.5 to 5 mg 3 times a day; however, with his significant vascular disease, risk compromised blood flow to his extremities. The other option is to consider hydrocortisone short burst 50 mg daily x2 days. 3. Anticoagulation. The patient is on Eliquis and will double check this is appropriately renally dosed. I appreciate the consultation. HECTOR
--- NOTE | 2017-02-10 14:56 | Progress Note ---
Subjective Date of Service: Feb 10, 2017. Subjective Pt evaluation today including: conversation w/ patient, physical exam, lab review, conversation w/ technical sales consultant, review of inpatient medication list Pain: denies pain PO Intake: adequate Voiding: no voiding problems (makes very little urine) patient more alert today, breathing well, minimal cough no fever labs reviewed BP still low, but mentating well, LA only 0.[address] Buchanan, recommends checking BP in right thigh, give Hydrocortisone, increase Midodrine no signs of pneumonia, stop antibiotics Problem List Medical Problems: (1) Abdominal pain Status: Acute (2) C. difficile colitis Status: Acute (3) Caregiver has difficulty performing caretaking Status: Acute (4) Colitis Status: Acute (5) Dehydration Status: Acute (6) Dependence on renal dialysis Status: Acute (7) Failure to thrive Status: Acute (8) Fever Status: Acute (9) Hypotension Status: Acute (10) Infection associated with peritoneal dialysis catheter Status: Acute (11) Lactic acidosis Status: Acute (12) Periumbilical abdominal pain Status: Acute (13) PNA (pneumonia) Status: Acute (14) Pneumonia involving right lung Status: Acute (15) Sepsis Status: Acute (16) Septic shock Status: Acute (17) Thoracic back pain Status: Acute (18) Vomiting Status: Acute (19) Weakness Status: Acute (20) Weakness Status: Acute Review of Systems Constitutional: + weakness, + fatigue All Other Systems: Reviewed and Negative Medications Current Inpatient Medications Medications (Trade) Dose Ordered Sig/Rigoberto Route Start Time Stop Time Status Last Admin Dose Admin Sodium Chloride 1,000 ml @ 50 mls/hr Q20H IV 02/08/17 23:30 03/10/17 23:29 02/10/17 11:15 50 MLS/HR Zolpidem Tartrate (Ambien Tab) 5 mg HSZ PRN PO 02/08/17 22:15 03/10/17 22:14 Acetaminophen (Tylenol Tab) 650 mg Q6H PRN PO 02/08/17 22:15 03/10/17 22:14 Bisacodyl (Dulcolax Supp) 10 mg DAILY PRN [place] 02/08/17 22:15 03/10/17 22:14 Escitalopram Oxalate (Lexapro Tab) 10 mg DAILY PO 02/09/17 09:00 03/11/17 08:59 02/10/17 08:52 10 MG Finasteride (Proscar Tab) 5 mg DAILY PO 02/09/17 09:00 03/11/17 08:59 02/10/17 08:54 5 MG Fludrocortisone Acetate (Florinef Tab) 0.1 mg DAILY PO 02/09/17 09:00 03/11/17 08:59 02/10/17 08:52 0.1 MG Gabapentin (Neurontin Cap) 400 mg TID PO 02/09/17 09:00 03/11/17 08:59 02/10/17 13:18 400 MG Latanoprost (Xalatan Oph Soln) 1 drops HS OPL 02/09/17 21:00 03/11/17 20:59 02/09/17 21:14 1 DROPS Sodium Biphosphate/ Sodium Phosphate (Fleet Enema) 132 ml DAILY PRN [place] 02/08/17 22:15 03/10/17 22:14 Sucralfate (Carafate Tab) 1 gm BID PO 02/09/17 09:00 03/11/17 08:59 02/10/17 08:51 1 GM Lactobacillus Acidophilus (Floranex Tab) 4 tab TIDM PO 02/09/17 07:30 03/11/17 07:59 02/10/17 11:44 4 TAB Apixaban (Eliquis Tab) 5 mg BID PO 02/09/17 09:00 03/11/17 08:59 02/10/17 08:51 5 MG Vitamin B Complex (Vitamin B Complex) 1 tab QAM PO 02/09/17 09:00 03/11/17 08:59 02/10/17 08:55 1 TAB Pantoprazole Sodium (Protonix Tab) 40 mg QAM PO 02/09/17 09:00 03/11/17 08:59 02/10/17 08:54 40 MG Polyethylene (Miralax Powder Packet) 17 gm DAILY PRN PO 02/08/17 22:15 03/10/17 22:14 Ondansetron HCl (Zofran Inj) 4 mg Q6H PRN IV 02/08/17 22:30 03/10/17 22:29 02/09/17 08:56 4 MG Insulin Aspart (novoLOG ASPART) SLIDING SCALE If C... ACHS SC 02/09/17 07:00 03/11/17 06:59 Glucose (Glucose 40% Gel) UD PRN PO 02/08/17 22:30 03/10/17 22:29 Glucose (Glucose Chew Tab) 1 tabs UD PRN PO 02/08/17 22:30 03/10/17 22:29 Dextrose (Dextrose 50% 50ML Syringe) 50 ml UD PRN IV 02/08/17 22:30 03/10/17 22:29 Glucagon (Glucagon Inj) 1 mg UD PRN SQ 02/08/17 22:30 03/10/17 22:29 Calcium Acetate (Phoslo Cap) 2,001 mg TIDM PO 02/10/17 16:45 03/11/17 08:59 Epoetin Juan A 85807 units/ Syringe 0.5 ml @ 1 mls/min TODAY@0800 IV. 02/11/17 08:00 02/11/17 18:00 Midodrine (Proamatine Tab) 5 mg TID@0800,1300,1800 PO 02/10/17 13:00 03/11/17 07:59 02/10/17 13:18 5 MG Objective Vital Signs Date Time Temp Pulse Resp B/P (MAP) Pulse Ox O2 Delivery O2 Flow Rate FiO2 02/10/17 12:57 100/58 (72) 02/10/17 12:00 Oxymask 7.0 02/10/17 11:29 36.6 56 18 85/52 (63) 99 Oxymask 7.0 02/10/17 08:00 Oxymask 7.0 02/10/17 07:43 36.6 55 18 65/36 (46) 100 7.0 02/10/17 04:00 Oxymask 7.0 02/10/17 03:19 36.7 56 16 71/44 (53) 100 Oxymask 8.0 02/10/17 00:00 Oxymask 8.0 02/09/17 23:45 36.7 53 17 62/40 (47) 90 Oxymask 8.0 02/09/17 20:00 Oxymask 4.0 02/09/17 19:31 36.7 54 16 74/46 (55) 100 Nasal Cannula 6.0 02/09/17 16:43 36.6 56 16 62/32 (42) 94 Nasal Cannula 8.0 71/46 (54) 02/09/17 16:00 Oxymask 8.0 Physical Exam General Appearance: WD/WN, no apparent distress Eyes: normal inspection, EOMI, sclerae normal Neck: supple, no adenopathy, no JVD, trachea midline Respiratory/Chest: chest non-tender, lungs clear, normal breath sounds, no respiratory distress, no accessory muscle use Cardiovascular: regular rate, rhythm, no edema, no gallop, no JVD, no murmur Abdomen: normal bowel sounds, non tender, soft, no organomegaly Extremities: normal range of motion, non-tender, no pedal edema, no calf tenderness, pelvis stable Neurologic/Psychiatric: supervisor laboratory II-XII nml as tested, no motor/sensory deficits, alert, normal mood/affect, oriented x 3 Skin: normal color, warm/dry, no rash Laboratory Results Last 24 Hours Test 02/09/17 15:29 02/09/17 16:27 02/09/17 19:51 02/10/17 06:21 Sodium Level 132 mmol/L Potassium Level 3.9 mmol/L Chloride Level 95 mmol/L Carbon Dioxide Level 27 mmol/L Anion Gap 10.0 mmol/L Blood Urea Nitrogen 35 mg/dl Creatinine 5.80 mg/dl Est Creatinine Clear Calc Drug Dose 13.3 ml/min Estimated GFR () 11.3 Estimated GFR (Non- 9.8 BUN/Creatinine Ratio 6.0 Random Glucose 101 mg/dl Lactic Acid Level 0.9 mmol/L Calcium Level 8.8 mg/dl Bedside Glucose 93 mg/dl 147 mg/dl 75 mg/dl Test 02/10/17 07:20 02/10/17 11:10 White Blood Count 4.64 K/uL Red Blood Count 3.48 M/uL Hemoglobin 10.1 g/dL Hematocrit 32.6 % Mean Corpuscular Volume 93.7 fL Mean Corpuscular Hemoglobin 29.0 pg Mean Corpuscular Hemoglobin Concent 31.0 g/dl Platelet Count 199 K/uL Mean Platelet Volume 10.6 fL Neutrophils (%) (Auto) 66.5 % Lymphocytes (%) (Auto) 15.9 % Monocytes (%) (Auto) 15.1 % Eosinophils (%) (Auto) 1.9 % Basophils (%) (Auto) 0.4 % Neutrophils # (Auto) 3.08 K/uL Lymphocytes # (Auto) 0.74 K/uL Monocytes # (Auto) 0.70 K/uL Eosinophils # (Auto) 0.09 K/uL Basophils # (Auto) 0.02 K/uL RDW Standard Deviation 54.6 fL RDW Coefficient of Variation 16.0 % Immature Granulocyte % (Auto) 0.2 % Immature Granulocyte # (Auto) 0.01 K/uL Prothrombin Time 11.0 SECONDS Prothromb Time International Ratio 1.0 Activated Partial Thromboplast Time 29.7 SECONDS Partial Thromboplastin Ratio 1.1 Sodium Level 133 mmol/L Potassium Level 4.2 mmol/L Chloride Level 98 mmol/L Carbon Dioxide Level 25 mmol/L Anion Gap 10.0 mmol/L Blood Urea Nitrogen 43 mg/dl Creatinine 7.00 mg/dl Est Creatinine Clear Calc Drug Dose 11.0 ml/min Estimated GFR () 9.0 Estimated GFR (Non- 7.8 BUN/Creatinine Ratio 6.2 Random Glucose 77 mg/dl Calcium Level 8.8 mg/dl Magnesium Level 2.3 mg/dl Total Bilirubin 0.5 mg/dl Direct Bilirubin 0.2 mg/dl Aspartate Amino Transf (AST/SGOT) 12 U/L Alanine Aminotransferase (ALT/SGPT) 24 U/L Alkaline Phosphatase 62 U/L Total Protein 6.6 gm/dl Albumin 2.5 gm/dl Random Vancomycin Level 20.3 mcg/ml Bedside Glucose 114 mg/dl Assessment and Plan 61 yo male with ESRD on HD MWF, recent admission for pneumonia, returns with weakness, hypotension, possible recurrent pneumonia - Possible Sepsis with hypotension, no signs of shock doubt pneumonia, no cough, no fever, WBC 4 consistently stop Vanco, Zosyn and Levaquin and observe - Hypotension: mentating well, LA only 0.9 d/w Dr. Buchanan, commonly has hypotension at dialysis increase Midodrine to 5 TID, continue Florinef, give one dose of Hydrocortisone ESRD on HD: plan for HD tomorrow, no ultrafiltration per Dr. Buchanan GERD-- Continue Carafate. Change omeprazole to pantoprazole. Hypothyroidism-- Continue levothyroxin. GPN-- Continue gabapentin. BPH-- Continue finasteride Anxiety/depression-- Continue Lexapro Continue Apixiban typically in wheelchair at SNF, discussed with RN that we should get patient OOB to chair
[2017-02-10] MEDS: LATANOPROST 0.005% OP SOLN 2.5 ML BTL OPL SCH (20:28)
[2017-02-11] VITALS (18 sets, daily range): BP systolic 106–159; BP diastolic 53–98; PULSE 47–74; TEMP 36.4–36.7; O2SAT 94–100
[2017-02-11 06:08] LABS: BASO % 0.2 %; BASO ABS # 0.01 K/uL (0-0.2); COMPLETE YES; EOS % 1.1 %; HEMATOCRIT 34.8 % (42-52); IG% 0.4 %; LYMPH % 17.2 %; LYMPH ABS # 0.98 K/uL (1.2-3.4); MEAN CELL VOLUME 93.8 fL (80-100); MEAN CORPUSCULAR HEMOGLOBIN 29.9 pg (25-34); MEAN CORPUSCULAR HGB CONC 31.9 g/dl (32-36); MEAN PLATELET VOLUME 10.5 fL (7.4-10.4); MONO % 9.7 %; NEUT % 71.4 %; PLATELET COUNT 241 K/uL (130-400); RED BLOOD COUNT 3.71 M/uL (4.7-6.1); WHITE BLOOD COUNT 5.69 K/uL (4.8-10.8)
[2017-02-11 06:29] LABS: PARTIAL THROMBOPLASTIN RATIO 1.4; PROTHROMBIN TIME (PATIENT) 10.7 SECONDS (9.0-12.0)
[2017-02-11 06:54] LABS: BUN/CREATININE RATIO 6.8 (10-20); CALCIUM 8.5 mg/dl (8.5-10.1); CREATININE 8.5 mg/dl (0.60-1.40); MAGNESIUM 2.5 mg/dl (1.8-2.4); POTASSIUM 4.1 mmol/L (3.5-5.1)
[2017-02-11] MEDS ORDERED: EPOETIN ALFA INJ 10,000 UNITS in SYRINGE 0 ML IV. SCH (08:00)
[2017-02-11] MEDS: APIXABAN 2.5 MG TAB PO SCH (08:21)
[2017-02-11] MEDS: CALCIUM ACETATE 667MG GELCAP PO SCH ×3 (08:22→17:30)
[2017-02-11] MEDS: MIDODRINE 2.5 MG TAB PO SCH ×3 (08:22→17:29)
[2017-02-11] MEDS: FINASTERIDE 5 MG TAB PO SCH (08:22)
[2017-02-11] MEDS: SUCRALFATE 1 GM TAB PO SCH ×2 (08:22→20:39)
[2017-02-11] MEDS: PANTOprazole SOD 40 MG TAB PO SCH (08:23)
[2017-02-11] MEDS: VITAMIN B COMPLEX TAB PO SCH (08:23)
[2017-02-11] MEDS: FLUDROCORTISONE ACETATE 0.1 MG TAB PO SCH (08:23)
[2017-02-11] MEDS: ESCITALOPRAM OXALATE 10 MG TAB PO SCH (08:23)
[2017-02-11] MEDS: GABAPENTIN 400 MG CAP PO SCH ×3 (08:23→20:39)
[2017-02-11] MEDS: LACTOBACILLUS ACIDOPHILUS (FLORANEX) TAB PO SCH ×3 (08:23→17:30)
[2017-02-11] MEDS: SODIUM CHLORIDE 0.9% 1000ML 1,000 ML IV SCH (08:24)
[2017-02-11] MEDS: INSULIN ASPART 100 UNITS/ML 3 ML PEN SC SCH ×4 (08:25→20:23)
[2017-02-11] MEDS ORDERED: EPOETIN ALFA 10,000 UNITS/ML VIAL IV. ONE (09:00)
--- NOTE | 2017-02-11 09:38 | Clinical Documentation Query ---
QUERY 1 OF [address] LOPES, In your clinical opinion is this patient being managed for: ( x) Hypotension due to hemodialysis ( ) Not Agree ( ) Other explanation of clinical findings (Please Explain) ( ) Unable to determine (Please Define) ( ) Need to Discuss The medical record reflects the following clinical findings, treatment, and risk factors. Clinical Indicators: 61 yo male presenting with increased fatigue and hypotension following hemodialysis. Sepsis workup performed but documentation reflects "doubt pneumonia" and IV antibiotics were discontinued. Nephrology also indicated that pt was not felt to have an infection and recommended stopping antibiotics. Treatment: 250 cc NSS bolus x then additional 250 cc NSS bolus, gentle IV fluids continuously, nephrology consult with plan for no fluid removal at dialysis on 02/11. IV hydrocortisone, increased midodrine dose Risk Factors: hemodialysis treatments QUERY 2 OF 2 In your clinical opinion is this patient being managed for: ( x ) Chronic diastolic CHF ( ) Not Agree ( ) Other explanation of clinical findings (Please Explain) ( ) Unable to determine (Please Define) ( ) Need to Discuss The medical record reflects the following clinical findings, treatment, and risk factors. Clinical Indicators: Noted documentation of chronic CHF. ECHO from December 2015 showed an EF of 55-60% and grade I diastolic dysfunction Treatment: fluid status managed with hemodialysis Risk Factors: CAD, DM, ESRD, CVA Please clarify and document your clinical opinion in the progress notes and discharge summary. Terms such as "probable", "suspected", "likely", "questionable", "possible", or "still to be ruled out" are acceptable. IF IN AGREEMENT, YOU MUST DOCUMENT ABOVE DIAGNOSTIC STATEMENT IN DAILY PROGRESS NOTES AND DISCHARGE SUMMARY. This document is not part of the patient's record. Thank You, Lyndsey Scott, RN [phone]
[2017-02-11] MEDS: ONDANSETRON INJ 2 MG/ML 2 ML VIAL IV PRN (13:45)
[2017-02-11 14:48] LABS: HEPATITIS B AB POS
--- NOTE | 2017-02-11 16:35 | Dialysis Progress Note ---
Nephrology Dialysis Note Date of Service: Feb 11, 2017. Subjective seen on HD this am at 0950; no c/o pain or dyspnea; catheter w/ poor flows and running reversed; bp improved on taking bp at thigh R Objective Date Time Temp Pulse Resp B/P (MAP) Pulse Ox O2 Delivery O2 Flow Rate FiO2 02/11/17 14:58 36.7 74 20 155/88 (110) 94 Room Air 02/11/17 12:25 36.6 48 159/98 (118) 02/11/17 12:01 48 157/82 02/11/17 11:46 50 153/92 02/11/17 11:30 51 130/85 02/11/17 11:16 47 119/74 02/11/17 11:01 49 114/69 02/11/17 10:45 51 109/65 02/11/17 10:30 50 118/66 02/11/17 10:15 55 110/55 02/11/17 10:00 61 106/65 02/11/17 09:46 63 109/53 02/11/17 09:35 Oxymask 7.0 02/11/17 09:30 62 114/57 02/11/17 09:15 58 125/77 02/11/17 09:02 59 131/65 02/11/17 08:56 36.4 60 125/74 (91) 02/11/17 07:16 36.4 51 20 151/92 (111) 100 02/11/17 00:00 Oxymask 7.0 02/10/17 23:33 36.8 56 16 90/59 (69) 99 Oxymask 02/10/17 19:00 98 Oxymask 7.0 98 02/10/17 18:55 36.6 51 20 143/78 (99) 98 Oxymask 7.0 02/10/17 18:43 36.5 56 18 98 3.0 02/10/17 16:55 36.5 56 18 144/97 (113) 98 Oxymask 3.0 02/10/17 16:43 119/77 (91) Physical Exam: GENERAL: Awake, alert, and oriented x3 with a left eyelid droop. EYES: no scleral icterus, eomi HEENT: Moist mucous membranes. NECK: Supple. PULMONARY: Clear to auscultation but diminished CARDIAC: Simone cardic in 50s, regular ABDOMEN: Bowel sounds positive. Soft and nontender. EXTREMITIES: Left BKA. NEUROLOGICALLY: Nonfocal. DERMATOLOGIC: No rash or ulcers noted. Current Inpatient Medications Medications (Trade) Dose Ordered Sig/Rigoberto Route Start Time Stop Time Status Last Admin Dose Admin Sodium Chloride 1,000 ml @ 50 mls/hr Q20H IV 02/08/17 23:30 03/10/17 23:29 02/11/17 08:24 50 MLS/HR Zolpidem Tartrate (Ambien Tab) 5 mg HSZ PRN PO 02/08/17 22:15 03/10/17 22:14 Acetaminophen (Tylenol Tab) 650 mg Q6H PRN PO 02/08/17 22:15 03/10/17 22:14 Bisacodyl (Dulcolax Supp) 10 mg DAILY PRN IN 02/08/17 22:15 03/10/17 22:14 Escitalopram Oxalate (Lexapro Tab) 10 mg DAILY PO 02/09/17 09:00 03/11/17 08:59 02/11/17 08:23 10 MG Finasteride (Proscar Tab) 5 mg DAILY PO 02/09/17 09:00 03/11/17 08:59 02/11/17 08:22 5 MG Fludrocortisone Acetate (Florinef Tab) 0.1 mg DAILY PO 02/09/17 09:00 03/11/17 08:59 02/11/17 08:23 0.1 MG Gabapentin (Neurontin Cap) 400 mg TID PO 02/09/17 09:00 03/11/17 08:59 02/11/17 12:57 400 MG Latanoprost (Xalatan Oph Soln) 1 drops HS OPL 02/09/17 21:00 03/11/17 20:59 02/10/17 20:28 1 DROPS Sodium Biphosphate/ Sodium Phosphate (Fleet Enema) 132 ml DAILY PRN IN 02/08/17 22:15 03/10/17 22:14 Sucralfate (Carafate Tab) 1 gm BID PO 02/09/17 09:00 03/11/17 08:59 02/11/17 08:22 1 GM Lactobacillus Acidophilus (Floranex Tab) 4 tab TIDM PO 02/09/17 07:30 03/11/17 07:59 02/11/17 12:57 4 TAB Apixaban (Eliquis Tab) 5 mg BID PO 02/09/17 09:00 03/11/17 08:59 02/11/17 08:21 5 MG Vitamin B Complex (Vitamin B Complex) 1 tab QAM PO 02/09/17 09:00 03/11/17 08:59 02/11/17 08:23 1 TAB Pantoprazole Sodium (Protonix Tab) 40 mg QAM PO 02/09/17 09:00 03/11/17 08:59 02/11/17 08:23 40 MG Polyethylene (Miralax Powder Packet) 17 gm DAILY PRN PO 02/08/17 22:15 03/10/17 22:14 Ondansetron HCl (Zofran Inj) 4 mg Q6H PRN IV 02/08/17 22:30 03/10/17 22:29 02/11/17 13:45 4 MG Insulin Aspart (novoLOG ASPART) SLIDING SCALE If C... ACHS SC 02/09/17 07:00 03/11/17 06:59 02/11/17 08:25 2 UNITS Glucose (Glucose 40% Gel) UD PRN PO 02/08/17 22:30 03/10/17 22:29 Glucose (Glucose Chew Tab) 1 tabs UD PRN PO 02/08/17 22:30 03/10/17 22:29 Dextrose (Dextrose 50% 50ML Syringe) 50 ml UD PRN IV 02/08/17 22:30 03/10/17 22:29 Glucagon (Glucagon Inj) 1 mg UD PRN SQ 02/08/17 22:30 03/10/17 22:29 Calcium Acetate (Phoslo Cap) 2,001 mg TIDM PO 02/10/17 16:45 03/11/17 08:59 02/11/17 12:56 2,001 MG Epoetin Juan A 51196 units/ Syringe 0.5 ml @ 1 mls/min TODAY@0800 IV. 02/11/17 08:00 02/11/17 18:00 02/11/17 11:26 1 MLS/MIN Midodrine (Proamatine Tab) 5 mg TID@0800,1300,1800 PO 02/10/17 13:00 03/11/17 07:59 02/11/17 12:56 5 MG Last 24 Hours Test 02/10/17 16:28 02/10/17 19:57 02/11/17 05:48 02/11/17 13:05 Bedside Glucose 162 mg/dl 152 mg/dl 75 mg/dl White Blood Count 5.69 K/uL Red Blood Count 3.71 M/uL Hemoglobin 11.1 g/dL Hematocrit 34.8 % Mean Corpuscular Volume 93.8 fL Mean Corpuscular Hemoglobin 29.9 pg Mean Corpuscular Hemoglobin Concent 31.9 g/dl Platelet Count 241 K/uL Mean Platelet Volume 10.5 fL Neutrophils (%) (Auto) 71.4 % Lymphocytes (%) (Auto) 17.2 % Monocytes (%) (Auto) 9.7 % Eosinophils (%) (Auto) 1.1 % Basophils (%) (Auto) 0.2 % Neutrophils # (Auto) 4.07 K/uL Lymphocytes # (Auto) 0.98 K/uL Monocytes # (Auto) 0.55 K/uL Eosinophils # (Auto) 0.06 K/uL Basophils # (Auto) 0.01 K/uL RDW Standard Deviation 54.8 fL RDW Coefficient of Variation 16.0 % Immature Granulocyte % (Auto) 0.4 % Immature Granulocyte # (Auto) 0.02 K/uL Prothrombin Time 10.7 SECONDS Prothromb Time International Ratio 1.0 Activated Partial Thromboplast Time 35.5 SECONDS Partial Thromboplastin Ratio 1.4 Sodium Level 137 mmol/L Potassium Level 4.1 mmol/L Chloride Level 103 mmol/L Carbon Dioxide Level 21 mmol/L Anion Gap 13.0 mmol/L Blood Urea Nitrogen 57 mg/dl Creatinine 8.50 mg/dl Est Creatinine Clear Calc Drug Dose 9.1 ml/min Estimated GFR () 7.1 Estimated GFR (Non- 6.2 BUN/Creatinine Ratio 6.8 Random Glucose 87 mg/dl Calcium Level 8.5 mg/dl Magnesium Level 2.5 mg/dl Total Bilirubin 0.4 mg/dl Direct Bilirubin 0.1 mg/dl Aspartate Amino Transf (AST/SGOT) 9 U/L Alanine Aminotransferase (ALT/SGPT) 23 U/L Alkaline Phosphatase 63 U/L Total Protein 6.9 gm/dl Albumin 2.5 gm/dl Test 02/11/17 14:02 Hepatitis B Surface Antigen NEG Hepatitis B Surface Antibody POS Date/Time Source Procedure Growth Status 02/10/17 18:17 Stool C.difficile Toxin B Gene (PCR) - Final No C. difficile toxin B gene detected Complete Assessment & Plan 61-year-old male who was recently in the hospital for pneumonia and discharged . Since d/c until readmission 02/10, the pt had diarrhea and minimal wt gain, worsening weakness, hypotension w/ sbp in 60-80 range and altered MS. His baseline bp is 90-100s generally. Needs to have bp checked in RLE. -End-stage renal disease. had routine hd today w/ No fluid removal secondary to volume status appearing adequate and with the lower but better blood pressures -Hypotension. Random cortisol during last admission was good at 21. Thyroid levels were also good at 1.1. The patient did receive 1 dose of hydrocortisone 50 mg during previous admission. In the past, the patient has responded favorably to intermittent doses of hydrocortisone irregardless of the cortisol level and had another this admit. -midodrine also doubled yesterday but w/ improved bp will lower again; risk of compromising blood flow to extremities with dose increase -Anticoagulation. The patient is on Eliquis and pls double check this is appropriately renally dosed.
--- NOTE | 2017-02-11 16:49 | Hospitalist Progress Note ---
Hospitalist Progress Note Date of Service Feb 11, 2017. (Jessie Perdue ., ALEJAC) Subjective Pt evaluation today including: conversation w/ patient, physical exam, chart review, lab review, review of inpatient medication list Pain: 4/10 epigastric pressure PO Intake: Had been tolerating breakfast, then vomited after lunch Voiding: voiding difficulty (doesn't make urine, on HD) Patient reports feeling well. He did have some nausea before lunch, and then after lunch vomited once. He feels better now. He also complains of what he calls chest pressure, although the patient actually points to his epigastric area. He states this is a 4/10 pain. He is otherwise feeling well and denies any dizziness or lightheadedness. The patient denies fevers, chills, sweats, chest pain, palpitations, claudication, cough, wheezing, shortness of breath, dysuria, hematuria, urinary retention, paralysis, weakness, numbness and tingling. Additional Comments: See HPI for pertinent positives and negatives. All other systems reviewed and negative. (Jessie Perdue ., NOE-C) Objective Vital Signs Date Time Temp Pulse Resp B/P (MAP) Pulse Ox O2 Delivery O2 Flow Rate FiO2 02/11/17 14:58 36.7 74 20 155/88 (110) 94 Room Air 02/11/17 12:25 36.6 48 159/98 (118) 02/11/17 12:01 48 157/82 02/11/17 11:46 50 153/92 02/11/17 11:30 51 130/85 02/11/17 11:16 47 119/74 02/11/17 11:01 49 114/69 02/11/17 10:45 51 109/65 02/11/17 10:30 50 118/66 02/11/17 10:15 55 110/55 02/11/17 10:00 61 106/65 02/11/17 09:46 63 109/53 02/11/17 09:35 Oxymask 7.0 02/11/17 09:30 62 114/57 02/11/17 09:15 58 125/77 02/11/17 09:02 59 131/65 02/11/17 08:56 36.4 60 125/74 (91) 02/11/17 07:16 36.4 51 20 151/92 (111) 100 02/11/17 00:00 Oxymask 7.0 02/10/17 23:33 36.8 56 16 90/59 (69) 99 Oxymask 02/10/17 19:00 98 Oxymask 7.0 98 02/10/17 18:55 36.6 51 20 143/78 (99) 98 Oxymask 7.0 02/10/17 18:43 36.5 56 18 98 3.0 02/10/17 16:55 36.5 56 18 144/97 (113) 98 Oxymask 3.0 02/10/17 16:43 119/77 (91) (Jessie Perdue ., PA-C) Physical Exam Notes: General appearance: Well-developed, well-nourished, no apparent distress Head: Normocephalic, atraumatic Eyes: +Blind left eye. Normal inspection, PERRL, EOMI ENT: Normal ENT inspection, hearing grossly normal, pharynx normal Neck: Supple, no JVD, trachea midline Respiratory/Chest: Lungs clear to auscultation, normal breath sounds, no respiratory distress Cardiovascular: Regular rate & rhythm, no gallop, no murmur Abdomen/GI: Normal bowel sounds, non-tender, soft Extremities/Musculoskeletal: +Left BKA. Normal inspection, no calf tenderness , no pedal edema Neurological/Psych: Alert, normal mood/affect, oriented x 3 Skin: Normal color, warm/dry, no rash (Jessie Perdue ., PA-C) Laboratory Results Last 24 Hours Test 02/10/17 19:57 02/11/17 05:48 02/11/17 13:05 02/11/17 14:02 Bedside Glucose 152 mg/dl 75 mg/dl White Blood Count 5.69 K/uL Red Blood Count 3.71 M/uL Hemoglobin 11.1 g/dL Hematocrit 34.8 % Mean Corpuscular Volume 93.8 fL Mean Corpuscular Hemoglobin 29.9 pg Mean Corpuscular Hemoglobin Concent 31.9 g/dl Platelet Count 241 K/uL Mean Platelet Volume 10.5 fL Neutrophils (%) (Auto) 71.4 % Lymphocytes (%) (Auto) 17.2 % Monocytes (%) (Auto) 9.7 % Eosinophils (%) (Auto) 1.1 % Basophils (%) (Auto) 0.2 % Neutrophils # (Auto) 4.07 K/uL Lymphocytes # (Auto) 0.98 K/uL Monocytes # (Auto) 0.55 K/uL Eosinophils # (Auto) 0.06 K/uL Basophils # (Auto) 0.01 K/uL RDW Standard Deviation 54.8 fL RDW Coefficient of Variation 16.0 % Immature Granulocyte % (Auto) 0.4 % Immature Granulocyte # (Auto) 0.02 K/uL Prothrombin Time 10.7 SECONDS Prothromb Time International Ratio 1.0 Activated Partial Thromboplast Time 35.5 SECONDS Partial Thromboplastin Ratio 1.4 Sodium Level 137 mmol/L Potassium Level 4.1 mmol/L Chloride Level 103 mmol/L Carbon Dioxide Level 21 mmol/L Anion Gap 13.0 mmol/L Blood Urea Nitrogen 57 mg/dl Creatinine 8.50 mg/dl Est Creatinine Clear Calc Drug Dose 9.1 ml/min Estimated GFR () 7.1 Estimated GFR (Non- 6.2 BUN/Creatinine Ratio 6.8 Random Glucose 87 mg/dl Calcium Level 8.5 mg/dl Magnesium Level 2.5 mg/dl Total Bilirubin 0.4 mg/dl Direct Bilirubin 0.1 mg/dl Aspartate Amino Transf (AST/SGOT) 9 U/L Alanine Aminotransferase (ALT/SGPT) 23 U/L Alkaline Phosphatase 63 U/L Total Protein 6.9 gm/dl Albumin 2.5 gm/dl Hepatitis B Surface Antigen NEG Hepatitis B Surface Antibody POS (Jessie Perdue ., RAMBO) Assessment and Plan 61 y/o male with ESRD on HD, hypotension, hypothyroidism, BPH, anxiety and depression, neuropathy, GERD who had recently been admitted with pneumonia now presents with weakness and hypotension. Hypotension, weakness--improved/resolved. BP WNL -Admit to tele. Transferred to medical. -Pt w/history of recurrent hypotension, especially during dialysis -Pt states that he has not been receiving his midodrine or Florinef prior to dialysis -Midodrine increased to 5 mg PO TID. Continue Florinef -Hydrocortisone 50 mg IV x 1 on 02/10 -Unlikely sepsis w/recurrent PNA. LA negative, afebrile, no leukocytosis. CXR negative and no respiratory complaints -Abx d/c'd. Pt continues to improve ESRD on HD -Nephrology on board, pt follows with Dr. Buchanan. HD today. Hypothyroidism -Continue Synthroid 100 mcg PO qd BPH -Continue Proscar 5 mg PO qd Anxiety and depression -Continue Lexapro 10 mg PO qd Neuropathy -Continue gabapentin 400 mg PO TID GERD -Continue Carafate. 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 Discussed with NOE Perdue and agree with findings and plan as documented in the note. Any exceptions or clarifications are listed here: Pt has no complaints. Doesn't want to leave the hospital because he likes the food and all the attention. Noted that he remains on Eliquis but only has a h/o DVT x 1 that was extensive which was in the summer of 2015. He denies any other DVT ever. There was question of PAF in the past but most recent notes from Cardiology with ablation was for SVT and deemed to not be Afib. Vitals reviewed AAOx3 RRR no mgr CTAB no wcr Abd +BS soft NT Ext left BKA 61 yo male here with H related hypotension, diarrhea. C. diff neg, not septic. -recommend dc to [facility] tomorrow if BPs remain normal, check BP on rt thigh only -decrease midodrine back to 2.5 tid as per Nephro recommendation today -decrease Eliquis to DVT proph dose of 2.5mg bid for DVT prevention as it has been over a year since the DVT, although could consider stopping Eliquis all together. He is NOT on it for PAF as per Electrophysiology notes s/p ablation in 06/2016 Documented By: Blanca Kam (Blanca Kam MD)
[2017-02-11] MEDS: LATANOPROST 0.005% OP SOLN 2.5 ML BTL OPL SCH (20:40)
[2017-02-12] MEDS: GABAPENTIN 400 MG CAP PO SCH ×2 (07:20→11:49)
[2017-02-12] MEDS: ESCITALOPRAM OXALATE 10 MG TAB PO SCH (07:20)
[2017-02-12] MEDS: LACTOBACILLUS ACIDOPHILUS (FLORANEX) TAB PO SCH ×2 (07:21→11:49)
[2017-02-12] MEDS: CALCIUM ACETATE 667MG GELCAP PO SCH ×2 (07:21→11:49)
[2017-02-12] MEDS: FINASTERIDE 5 MG TAB PO SCH (07:21)
[2017-02-12] MEDS: SUCRALFATE 1 GM TAB PO SCH (07:21)
[2017-02-12] MEDS: MIDODRINE 2.5 MG TAB PO SCH ×2 (07:22→11:49)
[2017-02-12] MEDS: FLUDROCORTISONE ACETATE 0.1 MG TAB PO SCH (07:22)
[2017-02-12] MEDS: PANTOprazole SOD 40 MG TAB PO SCH (07:22)
[2017-02-12] MEDS: VITAMIN B COMPLEX TAB PO SCH (07:22)
[2017-02-12 07:26] VITALS: BP 96/58; PULSE 58
[2017-02-12 07:31] LABS: HEMATOCRIT 33.1 % (42-52); MEAN CELL VOLUME 95.7 fL (80-100); MEAN CORPUSCULAR HEMOGLOBIN 28.9 pg (25-34); MEAN CORPUSCULAR HGB CONC 30.2 g/dl (32-36); MEAN PLATELET VOLUME 10.2 fL (7.4-10.4); PLATELET COUNT 205 K/uL (130-400); RED BLOOD COUNT 3.46 M/uL (4.7-6.1); WHITE BLOOD COUNT 5.62 K/uL (4.8-10.8)
[2017-02-12 07:35] VITALS: PULSE 58; TEMP 36.8; O2SAT 100
[2017-02-12] MEDS ORDERED: APIXABAN 2.5 MG TAB PO SCH (08:00)
[2017-02-12] MEDS: INSULIN ASPART 100 UNITS/ML 3 ML PEN SC SCH ×2 (08:18→13:00)
[2017-02-12 08:20] LABS: BUN/CREATININE RATIO 5.1 (10-20); CREATININE 7.2 mg/dl (0.60-1.40); POTASSIUM 3.9 mmol/L (3.5-5.1)
[2017-02-12 10:19] VITALS: BP 96/58; PULSE 58; TEMP 36.8; O2SAT 100
[2017-02-12] MEDS ORDERED: APIX1TAB3 PO ×2 (10:37)
--- NOTE | 2017-02-12 11:10 | Discharge Instructions ---
Discharge Instructions Date of Service Feb 12, 2017. Admission Reason for Admission: End Stage Renal Disease On Dialysis, Hypotension Discharge Discharge Diagnosis / Problem: Hypotension, ESRD on HD Discharge Goals Goal(s): Improve disease control, Therapeutic intervention Activity Recommendations Activity Level: Assistance Required . Additional Information Patient informed of condition: Yes Advance Directives: No DNR: No Level of Care: Other (Alf) Communicable Disease: No Prognosis: Improving Oxygen at (LPM): 3LNC [place] Catheter: No Instructions / Follow-Up Instructions / Follow-Up 61 y/o male with ESRD on HD, hypotension, hypothyroidism, BPH, anxiety and depression, neuropathy, GERD who had recently been admitted with pneumonia now presents with weakness and hypotension after hemodialysis the AM of admission.. Hypotension, weakness--improved/resolved after temporary increase in Midodrine to 5mg tid, 1 dose IV hydrocortisone. BP WNL now and will decrease midodrine back to 2.5mg tid (home dose) as per Nephro recommendations. -Unlikely sepsis w/recurrent PNA. lactate normal, afebrile, no leukocytosis. CXR negative and no respiratory complaints -was given one dose of antibiotics but then stopped after admission -continue Florinef and midodrine as outpt ESRD on HD -Nephrology on board -continue HD MWF Hypothyroidism -Continue Synthroid 100 mcg PO qd BPH -Continue Proscar 5 mg PO qd Anxiety and depression -Continue Lexapro 10 mg PO qd Neuropathy -Continue gabapentin 400 mg PO TID GERD -Continue Carafate, Protonix DVT prophylaxis-has been on treatment dose of Eliquis for 14 months for RLE DV in 12/2015. Review of chart shows questionable h/o A-fib in the past which was then ruled out by Cardiology as per outpt record review of Cardiology notes and inpatient notes by the [facility]. 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 Current Hospital Diet Patient's current hospital diet: AHA Diet (Heart Healthy), Diabetes Type 2 Diet Discharge Diet Recommended Diet: Renal Diet Procedures Procedures Performed: Chest xray Pending Studies Studies pending at discharge: no Physician Orders On Transfer Special Precautions: Fall risk Take BP on right thigh ONLY Dressing Changes: N/A IV Therapy: None Vital Signs: Routine Weigh: Routine Additional Orders: Follow up with outpatient HD on MWF POLST Discussion: Not Applicable Laboratory Results Last 24 Hours Test 02/11/17 13:05 02/11/17 14:02 02/11/17 17:22 02/11/17 19:31 Bedside Glucose 75 mg/dl 148 mg/dl 121 mg/dl Hepatitis B Surface Antigen NEG Hepatitis B Surface Antibody POS Test 02/12/17 06:44 02/12/17 07:12 White Blood Count 5.62 K/uL Red Blood Count 3.46 M/uL Hemoglobin 10.0 g/dL Hematocrit 33.1 % Mean Corpuscular Volume 95.7 fL Mean Corpuscular Hemoglobin 28.9 pg Mean Corpuscular Hemoglobin Concent 30.2 g/dl RDW Standard Deviation 56.1 fL RDW Coefficient of Variation 16.2 % Platelet Count 205 K/uL Mean Platelet Volume 10.2 fL Sodium Level 138 mmol/L Potassium Level 3.9 mmol/L Chloride Level 104 mmol/L Carbon Dioxide Level 25 mmol/L Anion Gap 9.0 mmol/L Blood Urea Nitrogen 36 mg/dl Creatinine 7.20 mg/dl Est Creatinine Clear Calc Drug Dose 11.6 ml/min Estimated GFR () 8.7 Estimated GFR (Non- 7.5 BUN/Creatinine Ratio 5.1 Random Glucose 77 mg/dl Calcium Level 9.0 mg/dl Bedside Glucose 78 mg/dl Medical Emergencies . Who to Call and When: Medical Emergencies: If at any time you feel your situation is an emergency, please call 911 immediately. . Non-Emergent Contact Non-Emergency issues call your: Primary Care Provider, Plant Taxonomy Teacher . . "Provider Documentation" section prepared by Blanca Kam. . Core Measure Problem Core Measures: None
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
== END 2017-02-12 14:15 | DRG 312 ==
LOC: EDBD 17:55 → C.EDC 17:57 → EDSEX 17:57 → C.2T 22:09 → ENRESERV 22:40 → C.4E 02-10 18:53
PROVIDERS: ADMIT Hospitalist; ATTEND Family Medicine
DX: I95.3 Hypotension of hemodialysis (principal); N18.6 End stage renal disease; Z99.2 Dependence on renal dialysis; I25.10 Atherosclerotic heart disease of native coronary artery without angina pectoris; I50.9 Heart failure, unspecified; F41.8 Other specified anxiety disorders; E11.21 Type 2 diabetes mellitus with diabetic nephropathy; E11.319 Type 2 diabetes mellitus with unspecified diabetic retinopathy without macular edema; Z86.73 Personal history of transient ischemic attack (TIA), and cerebral infarction without residual deficits; E86.0 Dehydration; E55.9 Vitamin D deficiency, unspecified; Z86.14 Personal history of Methicillin resistant Staphylococcus aureus infection; Z89.512 Acquired absence of left leg below knee; N40.0 Benign prostatic hyperplasia without lower urinary tract symptoms; Z79.01 Long term (current) use of anticoagulants; Z98.84 Bariatric surgery status; Z96.649 Presence of unspecified artificial hip joint; R62.7 Adult failure to thrive

== ENCOUNTER → 2017-04-05 | Day surgery (SDC) | payer OTHER ==
[~2017-04-05] VITALS: Ht 170.2 cm; Wt 77.5 kg
[~2017-04-05] MED LIST changes: +ACET650S10 PR; +APIX1TAB3 PO; +B-CO1TAB PO; +CALC667C4 PO; +CEFAZOLIN 1000MG IV PUSH 5 ML IV SCH; +CEFAZOLIN IV 1,000 MG in DEXTROSE 5% 50ML 50 ML IV ONE; +D5W AND 1/4NSS 1,000 ML IV SCH; -DXY100 PO; +ESCI10TA17 PO; +FENTANYL CITRATE INJ 50 MCG/1 ML 2 ML VIAL ONE; +FLUD0.1T PO; +FLUD0.1T10 PO; +HEPARIN SOD (PORCINE) 5000 UNIT/ML 1 ML VIAL IV ONE; +HEPARIN SOD (PORCINE) 5000 UNIT/ML 1 ML VIAL ONE; -INDO-22 PO; +LCTX PO; +LIDOCAINE HCL 1% 20 ML VIAL ONE; +LIDOCAINE HCL 1% 20 ML VIAL SQ ONE; +MIDAZOLAM HCL 1 MG/ML 2ML VIAL ONE; +MOML PO; +OMEP20CA9 PO; -OXYC-57 PO; -PRLSR20 PO; +SUCR1TAB29 PO
[2017-04-05 10:23] VITALS: BP 108/70; PULSE 72; TEMP 37; O2SAT 93; Ht 170.2 cm; Wt 77.5 kg
--- NOTE | 2017-04-05 11:01 | History and Physical ---
History & Physical Date of Service Apr 05, 2017. History & Physical Chief Complaint: End stage renal disease, malfunctioning right IJ permcath History of Present Illness The patient is a 60 year old male with hx of ESRD on HD who has had multiple prosthetic AV accesses placed in past, which have all occluded and is dialyzing permanently through a TDC. Dialysis in unable to use his permcath. Per HD unit , pt had no flow through the permcath this morning. Pt denies PEOPLES, fever, chills , chest pain, SOB, abd pain, N/V, rest pain, claudication, other complaints. Allergies No Known Allergies (Unverified , 10/01/13) Surgical / Medical History Past Medical/Surgical History: CVA/TIA, Depression, Diabetes, High Cholesterol , Kidney Disease, Neurological Disorder, Reflux, Thyroid Disease Review of Systems Constitutional: No chills, No diaphoresis, No fever, No malaise, No weakness, No weight gain, No weight loss, No sweats, No fatigue, No problem reported Respiratory: No cough, No cyanosis, No MACIEL, No hemoptysis, No orthopnea, No PND , No short of breath, No sputum production, No stridor, No wheezing, No dyspnea , No problem reported Cardiovascular: No chest pain, No chest tightness, No chest pressure, No palpitations, No syncope, No diaphoresis, No edema, No intermittent claudication , No orthopnea, No cyanosis, No mumur, No lightheadedness, No paroxysmal nocturnal dyspnea, No problem reported Gastrointestinal: No abdominal pain, No constipation, No diarrhea, No nausea, No vomiting, No anorexia, No appetite changes, No belching, No flatulence, No food intolerance, No hematemesis, No hemorrhoids, No hematochezia, No stool changes, No heartburn, No indigestion, No dysphagia, No rectal bleeding, No problem reported Genitourinary - Male: + problem reported (renal failure) Musculoskeletal: No back pain, No gout, No joint pain, No joint swelling, No muscle pain, No muscle stiffness, No muscle weakness, No neck pain, No problem reported Neurologic: No dizziness, No weakness, No headache, No lethargy, No numbness, No paresthesia, No pre-existing deficit, No seizures, No tics, No tingling, No tremors, No vertigo, No memory loss, No LOC, No problem reported Psychiatric: No anxiety, No alcohol abuse, No auditory hallucinations, No depression, No drug abuse, No homicidal ideation, No mood changes, No suicidal ideation, No visual hallucinations, No problem reported Physical Exam: Constitutional: General Apperance: chronically ill appearing male, well-nourished, well- developed obese Level of Distress: NAD Ambulation: wheelchair Psychiatric: Mental Status: active & alert, normal mood, normal affect Orientation: oriented except where noted, to time, to place, to person Memory: recent memory normal, remote memory normal Neck: supple Lungs: Auscultation: breath sounds normal, decreased Permacath in place Cardiovascular: Heart Auscultation: RRR Peripheral Pulses: Carotid Pulse: normal on the left, normal on the right Radial Pulse: normal on the left, normal on the right Femoral Pulse: normal on the left, normal on the right Abdomen: Inspection & Palpation: soft, non-distended. CAPD catheter in place Musculoskeletal: normal Extremities: Upper Right: no cyanosis, no edema, no varicosities, no palpable cord, no clubbing, no ulcers, no mottling Upper Left: no cyanosis, no edema, no varicosities, no palpable cord, no clubbing, no ulcers, no mottling, Lower Right: no cyanosis, no edema, no varicosities, no palpable cord, no clubbing, no ulcers, no mottling Lower Left: no cyanosis, no edema, no varicosities, no palpable cord, no clubbing, no ulcers, no mottling. BKA Neurologic: Cranial Nerves: grossly intact Sensation: grossly intact Assessment and Plan Imp: End stage renal disease Malfunctioning permcath Plan: Patient is admitted for exchange of permcath. Procedure, risks, benefits, and alternatives discussed with pt, he expresses understanding and agreement.
--- NOTE | 2017-04-05 11:02 | Procedure Note ---
Pre-Mod Sedation Assessment General Date of Moderate Sedation: Apr 05, 2017. Vital Signs: Vital Signs Past 12 Hours Date Time Temp Pulse Resp B/P (MAP) Pulse Ox O2 Delivery O2 Flow Rate FiO2 04/05/17 10:23 37.0 72 20 108/70 (83) 93 Room Air Pre-Sedation Airway Assessment Oral Cavity: Chipped Teeth Short Thick Neck: No Hx of Sleep Apnea: No Smoking Status: Never Smoker Mallampati Classification: Class I ASA Classification: Class III Notes The planned sedation has been discussed with the patient and consent obtained. I have identified the patient, determined the appropriateness of sedation and have assessed the patient immediately prior to the procedure. All medicine(s) and interventions are by my order.
[2017-04-05 12:48] VITALS: BP 108/70; PULSE 72; TEMP 37; O2SAT 93
--- NOTE | 2017-04-05 15:10 | [facility] Post Operative Brief Note ---
Immediate Operative Summary Operative Date Apr 05, 2017. Pre-Operative Diagnosis Malfunctioning Catheter Post-Operative Diagnosis Same Procedure(s) Performed Removal of Right subclavian vein Perm Catheter, Insertion of Perm Catheter Left Femoral approach, Ultrasound localization of left femoral vein, Fluoroscopy for positioning. Extremity Venogram Surgeon Dr. Mcdonnell Utility Tech Surgeon(s) None Estimated Blood Loss 10 Findings tip in distal vena cava Specimens Exchange Perm Catheter Anesthesia Local Complication(s) None Disposition
[2017-04-05 15:15] VITALS: BP 104/64; PULSE 61; TEMP 36.6; O2SAT 94
--- NOTE | 2017-04-05 15:20 | Discharge Instructions ---
Discharge Instructions Date of Service Apr 05, 2017. Visit Reason for Visit: End Stage Renal Disease, Malfunctioning Perm Cath Discharge Discharge Diagnosis / Problem: Malfunctioning permcath right subclavian vein Discharge Goals Goal(s): Therapeutic intervention Activity Recommendations Activity Limitations: resume your previous activity Anesthesia . Post Anesthesia Instructions: If you have had General Anesthesia or IV Sedation: * Do not drive today. * Resume driving when surgeon permits. * Do not make important decisions or sign legal documents today. * Call surgeon for: 1. Temperature elevations greater than 101 degrees F. 2. Uncontrollable pain. 3. Excessive bleeding. 4. Persistent nausea and vomiting. 5. Medication intolerance (nausea, vomiting or rash). * For nausea and vomiting use only clear liquids such as: tea, soda, bouillon until nausea subsides, then gradually increase diet as tolerated. * If you have any concerns or questions, call your surgeon's office. If physician is unavailable and it is an emergency, call 911 or go to the nearest emergency room. . Instructions / Follow-Up Instructions / Follow-Up Call [phone] with any questions or concerns. Take this with you to dialysis and give to the dialysis nurses May use femoral permcath for dialysis SPECIAL CARE INSTRUCTIONS: Medications: * Continue to take your medications as directed. If you have been given a prescription for Plavix, please fill it immediately and take as directed. Incision Care: * Your puncture site may have some bruising and minor swelling for about one week. * You will have a small dressing covering your puncture site. You may remove the dressing after 24 hours and shower. You may let the warm soapy water run over it, but be sure to dry the puncture site well and keep it dry. * DO NOT IMMERSE THE INCISION IN A TUB/POOL/etc. UNTIL HEALED. * Puncture sites should be kept covered with a band-aid until it begins to heal. Restrictions: * Depending on whether you leg or arm was punctured to access the arteries, you will be required to lay flat, hold your arm still, or both, for about 4 hours after the procedure to prevent bleeding. * Limit your activity for the first 48 hours. You may walk and go up and down steps. Avoid excessive bending or movement at the puncture site. Possible Complications: * Excessive Swelling - after blood flow is improved you may notice increased swelling in the lower legs. This is a normal response. This usually depends on the amount of blockages in the leg, how long they have been there prior to your procedure and how much blood flow was restored. Elevating your legs will help to improve this. Please notify our office ([phone] ) if the swelling does not go away after lying in bed overnight. * Infection/Drainage/Bleeding - Drainage or bleeding from the puncture site should be minimal. If you have excessive bleeding or drainage, call our office ([phone]) right away. * Pain - You may experience some mild pain or soreness at your puncture site. If your pain does not improve, please contact our office ([phone]). Call your doctor and seek emergent treatment if you develop: * Temperature above 101 degrees * Any fever or chills * Any redness or purulent drainage from the puncture site * Any new dusky/blue colored toes or feet with coolness or sharp or aching pain. SKIN IRRITATION: * You may experience some redness and/or swelling in the area where radiation was administered. If any skin irritation occurs, please contact your family physician. FOLLOW UP VISIT: Keep any scheduled doctor appointments. Diet Recommendations Recommended Home Diet: resume previous diet Procedures Procedures Performed: Removal of Right subclavian vein Perm Catheter, Insertion of Perm Catheter Left Femoral approach, Ultrasound localization of left femoral vein, Fluoroscopy for positioning. Extremity Venogram Pending Studies Studies pending at discharge: no Medical Emergencies . Who to Call and When: Medical Emergencies: If at any time you feel your situation is an emergency, please call 911 immediately. . Non-Emergent Contact Non-Emergency issues call your: Surgeon . . "Provider Documentation" section prepared by Unruly Mcdonnell. .
--- NOTE | 2017-04-05 15:29 | [facility] Operative Report ---
Operative Report Operative Date Apr 05, 2017. Pre-Operative Diagnosis Malfunctioning Catheter Post-Operative Diagnosis Same Procedure(s) Performed Removal of Right subclavian vein Perm Catheter, Insertion of Perm Catheter Left Femoral approach, Ultrasound localization of left femoral vein, Fluoroscopy for positioning. Extremity Venogram Surgeon Dr. 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 Exchange was recommended. I have discussed the risks options and benefits of the procedure with the patient. The patient understands the risks options and benefits and agrees to the procedure. Description of Procedure The patient was taken to the angio suite and placed in the supine position. The right side of the neck, chest wall and catheter were prepped and draped in a sterile manner. Local anesthesia was then accomplished. Using sharp and blunt dissection, the cuff of the permcath was freed up from the surrounding fibrous tissue. The permcath and cuff were completely removed. Due to the course of the wire when the PermCath was removed the wire sprang out with it. We then repunctured the subclavian vein percutaneously. Wire could not passed centrally. Through the needle we did a upper extremity venogram which showed occlusion of the subclavian and innominate veins. There were numerous collaterals present in the chest at that level. We decided at that time to try to do a femoral PermCath. Pressure was applied to the puncture site and sterile dressings were then applied after adequate hemostasis was noted. The left groin were prepped and draped in a sterile manner. Local anesthesia was then administered to the appropriate areas of the groinl. Ultrasound was then used to locate the left femoral vein. The vein compressed easily, had no filing defects, and was patent. The vein was then punctured under direct ultrasound imaging. A guidewire was then passed centrally under fluoroscopic imaging into the IVC. A stab wound was then made in the anterior thigh and a 42 cm permcath was passed from the stab wound on the thigh to the puncture site in the groin. The puncture site was then dilated till the 14Fr peel away sheath was inserted. The permcath was then inserted through the sheath to a central position in the distal inferior vena cava. The peel away sheath was then removed. The catheter was then sutured in place using nylon sutures. The puncture was then closed using a 4-0 Vicryl subcuticular suture. Dermabond was used for a dressing on the puncture site. Both ports aspirated and flushed easily and were then packed with heparin. A sterile dressing was applied to the catheter. The patient left the angio suite in good condition and tolerated the procedure well. I attest to the content of the Intraoperative Record and any orders documented therein. Any exceptions are noted below.
[2017-04-05 15:45] VITALS: BP 96/53; PULSE 68; O2SAT 95
[2017-04-05 16:15] VITALS: BP 97/57; PULSE 72; O2SAT 96
== END | disposition home or self-care (01) ==
LOC: C.ACU 09:23
PROVIDERS: ATTEND Surgery Vascular Surgery
DX: T82.898A Other specified complication of vascular prosthetic devices, implants and grafts, initial encounter (principal); N18.6 End stage renal disease; Z86.73 Personal history of transient ischemic attack (TIA), and cerebral infarction without residual deficits; E11.9 Type 2 diabetes mellitus without complications; E78.00 Pure hypercholesterolemia, unspecified; K21.9 Gastro-esophageal reflux disease without esophagitis; E66.9 Obesity, unspecified; Y82.8 Other medical devices associated with adverse incidents

== ENCOUNTER 2017-05-01 09:55 | Emergency (ER) | payer OTHER ==
[~2017-05-01] VITALS: Ht 170.2 cm; Wt 80.4 kg
[2017-05-01 09:55] VITALS: TEMP 36.5; Ht 170.2 cm; Wt 80.4 kg
[~2017-05-01 09:55] MED LIST changes: -CEFAZOLIN 1000MG IV PUSH 5 ML IV SCH; -CEFAZOLIN IV 1,000 MG in DEXTROSE 5% 50ML 50 ML IV ONE; -D5W AND 1/4NSS 1,000 ML IV SCH; -FENTANYL CITRATE INJ 50 MCG/1 ML 2 ML VIAL ONE; -HEPARIN SOD (PORCINE) 5000 UNIT/ML 1 ML VIAL IV ONE; -HEPARIN SOD (PORCINE) 5000 UNIT/ML 1 ML VIAL ONE; -LIDOCAINE HCL 1% 20 ML VIAL ONE; -LIDOCAINE HCL 1% 20 ML VIAL SQ ONE; -MIDAZOLAM HCL 1 MG/ML 2ML VIAL ONE
[2017-05-01] MEDS ORDERED: SODIUM CHLORIDE 0.9% 500ML 500 ML IV STA (10:19)
[2017-05-01 11:40] LABS: BASO % 0.2 %; BASO ABS # 0.01 K/uL (0-0.2); COMPLETE YES; EOS % 2.3 %; HEMATOCRIT 39.2 % (42-52); IG% 0.2 %; LYMPH % 12.9 %; LYMPH ABS # 0.62 K/uL (1.2-3.4); MEAN CELL VOLUME 94.9 fL (80-100); MEAN CORPUSCULAR HGB CONC 31.6 g/dl (32-36); MEAN PLATELET VOLUME 10.4 fL (7.4-10.4); MONO % 14.8 %; NEUT % 69.6 %; PLATELET COUNT 227 K/uL (130-400); RED BLOOD COUNT 4.13 M/uL (4.7-6.1); WHITE BLOOD COUNT 4.81 K/uL (4.8-10.8)
[2017-05-01 11:57] LABS: BUN/CREATININE RATIO 9.4 (10-20); CALCIUM 9.1 mg/dl (8.5-10.1); CREATININE 3.47 mg/dl (0.60-1.40); POTASSIUM 3.2 mmol/L (3.5-5.1)
--- NOTE | 2017-05-01 13:33 | DIAGNOSTIC IMAGING REPORT ---
CHEST AND ABDOMEN 2 VIEWS HISTORY: Generalized abdominal pain. COMPARISON: Chest 02/08/2017. FINDINGS: Patient is slightly rotated on this study. Lungs appear clear. No pleural effusions. No pneumothorax. The heart is normal in size. No pneumoperitoneum. No pneumatosis. Cholecystectomy. Moderate well-formed stool seen throughout the colon. Suture material within the left upper quadrant and left midabdomen consistent with postoperative change. Left total hip arthroplasty. There is a left femoral catheter with the tip terminating in the expected location of the mid IVC. No dilated loops of bowel to suggest an obstruction. IMPRESSION: 1. No acute process within the chest. 2. No evidence for bowel obstruction. 3. Moderate well-formed stool seen within the colon. 4. Left femoral catheter with the tip terminating in the expected location of the mid IVC. Electronically signed by: Emilio Le M.D. 05/01/2017 1:32 PM Dictated Date/Time: 05/01/2017 1:29 PM
[2017-05-01 15:29] VITALS: BP 110/80; PULSE 78; O2SAT 98
--- NOTE | 2017-05-01 15:36 | EMERGENCY ROOM VISIT NOTE ---
History Report prepared by Jason: Whitley Pierre Under the Supervision of: Rama CurielO. First contact with patient: 10:01 Chief Complaint: DIARRHEA Stated Complaint: DIARRHEA History of Present Illness The patient is a 61 year old male who presents to the Emergency Room with complaints of persistent diarrhea that began yesterday. The patient states that today he was at dialysis and states that he became diaphoretic and chilled. He states that he had one hour left in his dialysis that he did not receive. The patient denies missing any previous dialysis treatments. He states that he no longer makes urine. The patient denies being on any anticoagulants. He denies any recent antibiotic use. The patient reports multiple sick contacts at the [facility]. The patient denies headache, change in vision, fevers, chest pain, shortness of breath, abdominal pain, nausea, vomiting, diarrhea, and melena. Source of History: patient Onset: yesterday Position: other (global) Quality: other (diarrhea) Timing: other (persistent) Associated Symptoms: + chills, + diaphoresis Review of Systems See HPI for pertinent positives & negatives. A total of 10 systems reviewed and were otherwise negative. Past Medical & Surgical Medical Problems: (1) Altered mental status (2) Anemia (3) Arrhythmia (4) Bacteremia (5) CAD (coronary artery disease) (6) Congestive Heart Failure Nos (7) Depression (8) Diab W Oth Spec Manifest, Type Ii Or Unspec Type, Not Uncntr (9) Diabetic retinopathy (10) DM type 2 (diabetes mellitus, type 2) (11) End stage renal disease (12) ESRD (end stage renal disease) on dialysis (13) Fluency disorder following cerebrovascular accident (14) History of Clostridium difficile colitis (15) History of CVA (cerebrovascular accident) (16) History of GI bleed (17) History of methicillin resistant staphylococcus aureus (MRSA) (18) History of non-ST elevation myocardial infarction (NSTEMI) (19) Hyperkalemia (20) hyperkalemia, ESRD, wrist fx (21) Hyperlipidemia Nec/Nos (22) Hypertension Nos (23) Hypothyroidism Nos (24) Migraine (25) Morbid obesity (26) Peritonitis (27) Polyneuropathy in diabetes (28) Proteinuria (29) Social disinhibition (30) Vitamin D deficiency Surgical Problems: (1) Great toe amputation status (2) H/O gastric bypass (3) H/O total hip arthroplasty (4) History of cholecystectomy (5) History of colonoscopy with polypectomy (6) History of left below knee amputation Family History FH: heart disease FATHER FHx: cancer FATHER Hypertension Social History Smoking Status: Never Smoker Alcohol Use: occasionally Drug Use: none Marital Status: single Housing Status: lives alone Occupation Status: disabled Current/Historical Medications Scheduled Apixaban (Eliquis), 2.5 MG PO 4XWK Apixaban (Eliquis), 2.5 MG PO 3XWK B-Complex W/ C & Folic Acid (Nephronex), 1 TAB PO 4XWK B-Complex W/ C & Folic Acid (Nephronex), 1 TAB PO 3XWK Calcium Acetate (Phoslo 667 Mg), 3 CAP PO 3XWK Calcium Acetate (Phoslo 667 Mg), 3 CAP PO 4XWK Escitalopram (Lexapro), 10 MG PO 3XWK Escitalopram (Lexapro), 10 MG PO 4XWK Finasteride (Proscar), 5 MG PO 3XWK Finasteride (Proscar), 5 MG PO 4XWK Fludrocortisone Acetate (Florinef), 0.1 MG PO 3XWK Fludrocortisone Acetate (Fludrocortisone Acetate), 0.1 MG PO 4XWK Gabapentin (Neurontin), 400 MG PO 3XWK Gabapentin (Neurontin), 400 MG PO 4XWK Lactobacillus Acidophilus (Lactinex), 1 TAB PO 3XWK Lactobacillus Acidophilus (Lactinex), 1 TAB PO 4XWK Latanoprost (Xalatan 0.005% Oph Katya), 1 DROP OPL HS Levothyroxine Sodium (Synthroid), 100 MCG PO DAILY Midodrine (Midodrine HCl), 2.5 MG PO TID Omeprazole (Prilosec), 40 MG PO 3XWK Omeprazole (Prilosec), 40 MG PO 4XWK Sucralfate (Carafate), 1 GM PO 3XWK Sucralfate (Carafate), 1 GM PO 4XWK Scheduled PRN Acetaminophen (Tylenol), 1 SUPP MS Q6H PRN for Mild Pain/Fever Acetaminophen Tab (Tylenol), 650 MG PO Q6H PRN for Mild Pain/Fever Bisacodyl (Dulcolax), 1 SUPP MS UD PRN for Constipation Magnesium Hydroxide (Milk Of Magnesia), 30 ML PO UD PRN for Constipation Polyethylene Glycol 3350 (Bulk (Polyethylene Glycol 3350), 17 GM PO Q24H PRN for Constipation Sodium Phosphate/Biphosphate (Fleet Enema), 1 EA MS UD PRN for Constipation Allergies Coded Allergies: No Known Allergies (Verified , `, 04/05/17) Physical Exam Vital Signs Date Time Temp Pulse Resp B/P (MAP) Pulse Ox O2 Delivery O2 Flow Rate FiO2 05/01/17 15:29 78 18 110/80 98 05/01/17 13:47 61 18 96 05/01/17 13:17 60 10 94 05/01/17 13:16 62 05/01/17 13:01 60 105/52 92 Room Air 05/01/17 12:12 66 21 95 05/01/17 12:07 61 14 92 05/01/17 12:01 91/52 05/01/17 11:38 105/59 05/01/17 11:37 67 16 89 05/01/17 11:32 96/46 05/01/17 11:06 74 13 93 05/01/17 10:36 69 14 92 05/01/17 10:34 68 05/01/17 10:31 65 105/51 92 Room Air 05/01/17 09:55 36.5 69 18 94/53 92 Room Air 05/01/17 09:55 36.5 69 18 94/53 92 Room Air Physical Exam GENERAL: Patient is alert, chronically ill appearing, lying in bed,k in no acute distress. EYE EXAM: normal conjunctiva. OROPHARYNX: no exudate, no erythema, lips, buccal mucosa, and tongue normal and mucous membranes are moist NECK: supple, no nuchal rigidity, no adenopathy, non-tender LUNGS: Clear to auscultation. Normal chest wall mechanics HEART: no murmurs, S1 normal and S2 normal ABDOMEN: abdomen soft, non-tender, hyper-active bowel sounds, no masses, no rebound or guarding. BACK: Back is symmetrical on inspection and there is no deformity, no midline tenderness, no CVA tenderness. SKIN: Pale skin. no rashes and no bruising UPPER EXTREMITIES: upper extremities are grossly normal. LOWER EXTREMITIES: Left BKA dialysis catheter in left groin that is clean dry and intact. NEURO EXAM: Normal sensorium, cranial nerves II-XII grossly intact, normal speech, no gross weakness of arms. Medical Decision & Procedures ER Provider Diagnostic Interpretation: Radiology results as stated below per my review and the radiologist's interpretation: CHEST AND ABDOMEN 2 VIEWS HISTORY: Generalized abdominal pain. COMPARISON: Chest 02/08/2017. FINDINGS: Patient is slightly rotated on this study. Lungs appear clear. No pleural effusions. No pneumothorax. The heart is normal in size. No pneumoperitoneum. No pneumatosis. Cholecystectomy. Moderate well-formed stool seen throughout the colon. Suture material within the left upper quadrant and left midabdomen consistent with postoperative change. Left total hip arthroplasty. There is a left femoral catheter with the tip terminating in the expected location of the mid IVC. No dilated loops of bowel to suggest an obstruction. IMPRESSION: 1. No acute process within the chest. 2. No evidence for bowel obstruction. 3. Moderate well-formed stool seen within the colon. 4. Left femoral catheter with the tip terminating in the expected location of the mid IVC. Electronically signed by: Emilio Le M.D. 05/01/2017 1:32 PM Dictated Date/Time: 05/01/2017 1:29 PM Laboratory Results 05/01/17 11:15 Red Blood Count 4.13, Mean Corpuscular Volume 94.9, Mean Corpuscular Hemoglobin 30.0, Mean Corpuscular Hemoglobin Concent 31.6, Mean Platelet Volume 10.4, Neutrophils (%) (Auto) 69.6, Lymphocytes (%) (Auto) 12.9, Monocytes (%) (Auto) 14.8, Eosinophils (%) (Auto) 2.3, Basophils (%) (Auto) 0.2, Neutrophils # (Auto ) 3.35, Lymphocytes # (Auto) 0.62, Monocytes # (Auto) 0.71, Eosinophils # (Auto ) 0.11, Basophils # (Auto) 0.01 05/01/17 11:15 Test 05/01/17 11:15 White Blood Count 4.81 K/uL (4.8-10.8) Red Blood Count 4.13 M/uL (4.7-6.1) Hemoglobin 12.4 g/dL (14.0-18.0) Hematocrit 39.2 % (42-52) Mean Corpuscular Volume 94.9 fL (80-100) Mean Corpuscular Hemoglobin 30.0 pg (25-34) Mean Corpuscular Hemoglobin Concent 31.6 g/dl (32-36) Platelet Count 227 K/uL (130-400) Mean Platelet Volume 10.4 fL (7.4-10.4) Neutrophils (%) (Auto) 69.6 % Lymphocytes (%) (Auto) 12.9 % Monocytes (%) (Auto) 14.8 % Eosinophils (%) (Auto) 2.3 % Basophils (%) (Auto) 0.2 % Neutrophils # (Auto) 3.35 K/uL (1.4-6.5) Lymphocytes # (Auto) 0.62 K/uL (1.2-3.4) Monocytes # (Auto) 0.71 K/uL (0.11-0.59) Eosinophils # (Auto) 0.11 K/uL (0-0.5) Basophils # (Auto) 0.01 K/uL (0-0.2) RDW Standard Deviation 55.4 fL (36.4-46.3) RDW Coefficient of Variation 16.2 % (11.5-14.5) Immature Granulocyte % (Auto) 0.2 % Immature Granulocyte # (Auto) 0.01 K/uL (0.00-0.02) Anion Gap 9.0 mmol/L (3-11) Est Creatinine Clear Calc Drug Dose 23.3 ml/min Estimated GFR () 21.1 Estimated GFR (Non- 18.2 BUN/Creatinine Ratio 9.4 (10-20) Calcium Level 9.1 mg/dl (8.5-10.1) Total Bilirubin 0.5 mg/dl (0.2-1) Direct Bilirubin 0.2 mg/dl (0-0.2) Aspartate Amino Transf (AST/SGOT) 19 U/L (15-37) Alanine Aminotransferase (ALT/SGPT) 23 U/L (12-78) Alkaline Phosphatase 80 U/L (45-117) Total Protein 8.8 gm/dl (6.4-8.2) Albumin 3.8 gm/dl (3.4-5.0) Lipase 116 U/L (73-393) Laboratory results per my review. Medications Administered Medications (Trade) Dose Ordered Sig/Rigoberto Route Start Time Stop Time Status Last Admin Dose Admin Sodium Chloride 500 ml @ 999 mls/hr Q31M STAT IV 05/01/17 10:19 05/01/17 10:49 DC 05/01/17 11:32 999 MLS/HR ED Course ED COURSE: Vital signs were reviewed and showed hypotensive The patients medical record was reviewed The above diagnostic studies were performed and reviewed. ED treatments and interventions as stated above. 1010: The patient was evaluated in room C10. A complete history and physical examination was performed. 1019: Ordered Sodium Chloride 500 ml @ 999 mls/hr IV. 1330: Upon reevaluation, the patient is resting comfortably. He was unable to give a stool sample. The patient states that his normal systolic pressure is between 90 and 100 mmHg. I discussed my findings with the patient and he understands and agrees with the treatment plan. Based on the patients age, coexisting illnesses, exam and lab findings the decision to treat as an outpatient was made. The patient remained stable while under my care. The patient appeared well at the time of discharge. 1334: I discussed the patients case with the nurse practitioner from [facility]. She states that they will take the patient back to their facility. Medical Decision Differential diagnoses includes but is not limited to gastritis, peptic ulcer disease, GERD, gallbladder disease, pancreatitis, small bowel obstruction, acute coronary syndrome, pericarditis, ischemic bowel, irritable bowel disease, irritable bowel syndrome, appendicitis, diverticulitis, malignancy, hernia, urinary tract infection, torsion, perforation, trauma, infectious. Patient is a 61-year-old male who presents to ER for diarrhea. He notes he had 3-4 episodes of diarrhea over the past 24 hours. He was at dialysis today. He received 3 hours with that treatment. Normally gets this Saturday was a Saturday. Has not missed any previous doses. CBC was unremarkable. BMP shows a mild hyponatremia and hypokalemia. I do favor this is secondary to recent dialysis. Believe he needs time to equilibrate. Unable to obtain a stool sample. Patient was feeling significantly better following 500 mL's of fluids. Vitals were stable with pressures in the 90s to low 100s. Discussed findings and pressures with [facility] and patient. Nurse practitioner at [facility] notes that these pressures are good for him and they will follow him up as an outpatient. Obstruction series and chest x-ray unremarkable. Discussed with Pt concerning signs and symptoms to watch out for. Pt was instructed to follow up with their PCP and discussed with the patient their option to return to the ED at anytime for persistent or worsening symptoms. The appropriate anticipatory guidance and out-patient management, including indications for return to the emergency department, were explained at length to the patient and understood. Medication Reconcilliation Current Medication List: was personally reviewed by me Blood Pressure Screening Patient's blood pressure: Low blood pressure Blood pressure disposition: Did not require urgent referral Consults Time Called: 1327 Consulting Physician: nurse practitioner from [facility] Returned Call: [phone] I discussed the patients case with the nurse practitioner from [facility]. She states that they will take the patient back to their facility. Impression Primary Impression: Diarrhea Scribe Attestation The scribe's documentation has been prepared under my direction and personally reviewed by me in its entirety. I confirm that the note above accurately reflects all work, treatment, procedures, and medical decision making performed by me. Departure Information Dispostion Home / Self-Care Referrals RV. Hudson MD (PCP) Forms HOME CARE DOCUMENTATION FORM, IMPORTANT VISIT INFORMATION, WORK / SCHOOL INSTRUCTIONS Patient Instructions ED Diarrhea Viral, My [facility] Additional Instructions Please follow up with your primary care doctor with in the next 24 hours. Any worsening of your symptoms, please return to the ED immediately. This includes any fevers greater than 100.4, worsening pain, chest pain, shortness breath, persistent nausea, vomiting, unable to eat or drink, or any other concerning signs or symptoms from your standpoint. We were unable to obtain a stool culture here in the ER. It would be beneficial to obtain a stool culture for possible C. difficile at the [facility]. Sodium was slightly low at 129. Potassium was also slightly low and should be rechecked at next dialysis. Favor this will likely normalize. Problem Qualifiers Primary Impression: Diarrhea Diarrhea type: unspecified type Qualified Codes: R19.7 - Diarrhea, unspecified
== END 2017-05-01 15:30 | disposition home or self-care (01) ==
LOC: EDBD 09:55 → C.EDC 09:57
DX: R19.7 Diarrhea, unspecified (principal); I13.2 Hypertensive heart and chronic kidney disease with heart failure and with stage 5 chronic kidney disease, or end stage renal disease; E11.22 Type 2 diabetes mellitus with diabetic chronic kidney disease; N18.6 End stage renal disease; Z99.2 Dependence on renal dialysis; I50.9 Heart failure, unspecified; I25.10 Atherosclerotic heart disease of native coronary artery without angina pectoris; E11.319 Type 2 diabetes mellitus with unspecified diabetic retinopathy without macular edema; E78.5 Hyperlipidemia, unspecified; E03.9 Hypothyroidism, unspecified; G43.909 Migraine, unspecified, not intractable, without status migrainosus; E11.42 Type 2 diabetes mellitus with diabetic polyneuropathy; E55.9 Vitamin D deficiency, unspecified; F32.9 Major depressive disorder, single episode, unspecified; Z79.01 Long term (current) use of anticoagulants; Z89.419 Acquired absence of unspecified great toe; Z98.84 Bariatric surgery status; Z96.649 Presence of unspecified artificial hip joint; Z90.49 Acquired absence of other specified parts of digestive tract; Z89.512 Acquired absence of left leg below knee; Z82.49 Family history of ischemic heart disease and other diseases of the circulatory system; Z80.9 Family history of malignant neoplasm, unspecified

== ENCOUNTER → 2017-05-05 | Outpatient (CLI) | payer OTHER | LOC: C.LABUPNIT 09:38 | PROVIDERS: ATTEND Nurse Practitioner Family | DX: A04.72 Enterocolitis due to Clostridium difficile, not specified as recurrent (principal) ==

== ENCOUNTER → 2017-05-21 | Outpatient (CLI) | payer OTHER | LOC: C.LABUPNIT 08:27 | PROVIDERS: ATTEND Nurse Practitioner Family | DX: A04.72 Enterocolitis due to Clostridium difficile, not specified as recurrent (principal) ==

== ENCOUNTER → 2017-06-25 | Outpatient (CLI) | payer OTHER | LOC: C.LABUPNIT 08:45 | PROVIDERS: ATTEND Nurse Practitioner Family | DX: E03.9 Hypothyroidism, unspecified (principal) ==

== ENCOUNTER → 2017-07-09 | Outpatient (CLI) | payer OTHER ==
[~2017-07-09] MED LIST changes: +ACET-1693 PO; -ACET325T96 PO; +GABA-1220 PO; -GABA1CAP5 PO
[2017-07-09 09:00] LABS: HEMOGLOBIN A1C 5.6 % (4.5-5.6)
== END ==
LOC: C.LABUPNIT 08:10
PROVIDERS: ATTEND Nurse Practitioner Family
DX: E11.9 Type 2 diabetes mellitus without complications (principal)

== ENCOUNTER → 2017-07-23 | Outpatient (CLI) | payer OTHER | END | disposition home or self-care (01) | LOC: C.LABUPNIT 08:47 | PROVIDERS: ATTEND Nurse Practitioner Family | DX: E03.9 Hypothyroidism, unspecified (principal) ==

== ENCOUNTER 2017-08-12 09:54 | Day surgery (SDC) | payer OTHER ==
[~2017-08-12] VITALS: Ht 172.7 cm; Wt 81.0 kg
--- NOTE | 2017-08-12 08:50 | History and Physical ---
History & Physical Date of Service Aug 12, 2017. History & Physical Chief Complaint: End stage renal disease, malfunctioning left femoral permcath History of Present Illness The patient is a 60 year old male with hx of ESRD on HD who has had multiple prosthetic AV accesses placed in past, which have all occluded and is dialyzing permanently through a TDC. Dialysis in unable to use his permcath. Per HD unit , pt had no flow through the permcath this morning. The cuff of the permcath is exposed. Pt denies PEOPLES, fever, chills, chest pain, SOB, abd pain, N/V, rest pain, claudication, other complaints. Allergies No Known Allergies (Unverified , 10/01/13) Surgical / Medical History Past Medical/Surgical History: CVA/TIA, Depression, Diabetes, High Cholesterol , Kidney Disease, Neurological Disorder, Reflux, Thyroid Disease Review of Systems Constitutional: No chills, No diaphoresis, No fever, No malaise, No weakness, No weight gain, No weight loss, No sweats, No fatigue, No problem reported Respiratory: No cough, No cyanosis, No MACIEL, No hemoptysis, No orthopnea, No PND , No short of breath, No sputum production, No stridor, No wheezing, No dyspnea , No problem reported Cardiovascular: No chest pain, No chest tightness, No chest pressure, No palpitations, No syncope, No diaphoresis, No edema, No intermittent claudication , No orthopnea, No cyanosis, No mumur, No lightheadedness, No paroxysmal nocturnal dyspnea, No problem reported Gastrointestinal: No abdominal pain, No constipation, No diarrhea, No nausea, No vomiting, No anorexia, No appetite changes, No belching, No flatulence, No food intolerance, No hematemesis, No hemorrhoids, No hematochezia, No stool changes, No heartburn, No indigestion, No dysphagia, No rectal bleeding, No problem reported Genitourinary - Male: + problem reported (renal failure) Musculoskeletal: No back pain, No gout, No joint pain, No joint swelling, No muscle pain, No muscle stiffness, No muscle weakness, No neck pain, No problem reported Neurologic: No dizziness, No weakness, No headache, No lethargy, No numbness, No paresthesia, No pre-existing deficit, No seizures, No tics, No tingling, No tremors, No vertigo, No memory loss, No LOC, No problem reported Psychiatric: No anxiety, No alcohol abuse, No auditory hallucinations, No depression, No drug abuse, No homicidal ideation, No mood changes, No suicidal ideation, No visual hallucinations, No problem reported Physical Exam: Constitutional: General Apperance: chronically ill appearing male, well-nourished, well- developed obese Level of Distress: NAD Ambulation: wheelchair Psychiatric: Mental Status: active & alert, normal mood, normal affect Orientation: oriented except where noted, to time, to place, to person Memory: recent memory normal, remote memory normal Neck: supple Lungs: Auscultation: breath sounds normal, decreased Heart Auscultation: RRR Peripheral Pulses: Carotid Pulse: normal on the left, normal on the right Radial Pulse: normal on the left, normal on the right Femoral Pulse: normal on the left, normal on the right Abdomen: Inspection & Palpation: soft, non-distended. CAPD catheter in place Musculoskeletal: normal Extremities: Upper Right: no cyanosis, no edema, no varicosities, no palpable cord, no clubbing, no ulcers, no mottling Upper Left: no cyanosis, no edema, no varicosities, no palpable cord, no clubbing, no ulcers, no mottling, Lower Right: no cyanosis, no edema, no varicosities, no palpable cord, no clubbing, no ulcers, no mottling Lower Left: no cyanosis, no edema, no varicosities, no palpable cord, no clubbing, no ulcers, no mottling. BKA. left femoral permcath Neurologic: Cranial Nerves: grossly intact Sensation: grossly intact Assessment and Plan Imp: End stage renal disease Malfunctioning permcath Plan: Patient is admitted for exchange of permcath. Procedure, risks, benefits, and alternatives discussed with pt, he expresses understanding and agreement.
[~2017-08-12 09:54] MED LIST changes: -ACET650S10 PR; -B-CO1TAB PO; -BISA10SU3 PR; -CALC667C4 PO; +CEFAZOLIN 1000MG IV PUSH 7.5 ML IV SCH; +CEFAZOLIN 2000MG IV PUSH 15 ML IV SCH; +D5W AND 1/4NSS 1,000 ML IV SCH; -FINA5TAB PO; -FLUD0.1T PO; -FLUD0.1T10 PO; -GABA-1220 PO; -LATA0.5S OPL; -LCTX PO; -OMEP20CA9 PO; -POLY1POW2 PO; -SODIENE PR; -SUCR1TAB29 PO; +[UNRECOGNIZED DRUG - REMARK] ONE
[2017-08-12 10:45] VITALS: BP 122/66; PULSE 92; TEMP 36.6; O2SAT 94; Ht 172.7 cm; Wt 81.0 kg
[2017-08-12] MEDS ORDERED: SERT50TA PO (11:32)
--- NOTE | 2017-08-12 12:12 | Pre Sedation Assessment ---
Pre Sedation Assessment General Date of Sedation: Aug 12, 2017. Vital Signs Past 12 Hours Date Time Temp Pulse Resp B/P (MAP) Pulse Ox O2 Delivery O2 Flow Rate FiO2 08/12/17 10:45 36.6 92 20 122/66 (84) 94 Room Air Review Cardiovascular: regular rate, rhythm Lungs: lungs clear Pre-Sedation Airway Assessment Smoking Status: Never Smoker Hx of Sleep Apnea: No Short Thick Neck: No Thyro-mental Distance: > 3 Finger Breadths Oral Cavity: Chipped Teeth Mallampati Classification: Class II ASA Classification: Class III NPO Status Date of Last Intake of Fluids: Aug 11, 2017 Time of Last Intake of Fluids: 529 Date of Last Intake of Solids: Aug 11, 2017 Time of Last Intake of Solids: 529 Procedure Planning Contraindications for Sedation: None Current Medications Reviewed: Yes Notes The planned sedation has been discussed with the patient. Informed Consent was obtained. I have identified the patient, determined the appropriateness of sedation and have assessed the patient immediately prior to the procedure. All medicine(s) and interventions are by my order.
--- NOTE | 2017-08-12 12:13 | History & Physical Bridge Note ---
H&P Re-Evaluation Bridge Note: I have examined the patient, reviewed the History & Physical and in the interval since the performance of the History & Physical I have noted the following changes of clinical significance: No changes noted
[2017-08-12] MEDS ORDERED: HEPARIN SOD (PORCINE) 5000 UNIT/ML 1 ML VIAL ONE (12:16)
[2017-08-12] MEDS ORDERED: MIDAZOLAM HCL 1 MG/ML 2ML VIAL ONE (12:17)
[2017-08-12] MEDS ORDERED: FENTANYL CITRATE INJ 50 MCG/1 ML 2 ML VIAL ONE (12:17)
[2017-08-12] MEDS ORDERED: GABA-1220 PO ×2 (12:29→22:08)
--- NOTE | 2017-08-12 12:46 | [facility] Operative Report ---
Operative Report Operative Date Aug 12, 2017. Pre-Operative Diagnosis Malfunctioning Perm Catheter Post-Operative Diagnosis Malfunctioning Perm Catheter Procedure(s) Performed Exchange of Perm Catheter, Venacavagram, Moderate Sedation from 1231 - [address] Mcdonnell Director Style Surgeon(s) None Estimated Blood Loss 3cc Findings Tip was in the inferior vena cava. No caval clot was noted on the venogram. Specimens a: Explant Perm Catheter Drains None Anesthesia Type IV Sedat Cons RN Only Disposition Indications This is a 61-year-old male with a left femoral PermCath in place. It was malfunctioning at dialysis today. The cuff of the catheter was exposed. Exchange was recommended.I have discussed the risks options and benefits of the procedure with the patient. The patient understands the risks options and benefits and agrees to the procedure. Description of Procedure Patient was takent to the angio suite and placed in the supine position. The left groin and catheter were prepped and draped in a sterile manner. Local anesthesia was then administered to the appropriate areas. A guidewire was then passed centrally under fluoroscopic imaging through the old permcath. The old permcath was removed. A new 42 cm permcath was inserted without difficulty. The catheter was sutured in placed. A venacavogram was performed through the port. No caval clot was seen in the inferior vena cava or around the catheter. Both ports aspirated and flushed easily and were then packed with heparin. A sterile dressing was applied to the catheter. The patient left the angio suite in good condition and tolerated the procedure well. I attest to the content of the Intraoperative Record and any orders documented therein. Any exceptions are noted below.
--- NOTE | 2017-08-12 12:48 | Discharge Instructions ---
Discharge Instructions Date of Service Aug 12, 2017. Visit Reason for Visit: Malfunctioning Perm Cath Discharge Discharge Diagnosis / Problem: Malfunctioning permcath Discharge Goals Goal(s): Therapeutic intervention Activity Recommendations Activity Limitations: resume your previous activity Anesthesia . Post Anesthesia Instructions: If you have had General Anesthesia or IV Sedation: * Do not drive today. * Resume driving when surgeon permits. * Do not make important decisions or sign legal documents today. * Call surgeon for: 1. Temperature elevations greater than 101 degrees F. 2. Uncontrollable pain. 3. Excessive bleeding. 4. Persistent nausea and vomiting. 5. Medication intolerance (nausea, vomiting or rash). * For nausea and vomiting use only clear liquids such as: tea, soda, bouillon until nausea subsides, then gradually increase diet as tolerated. * If you have any concerns or questions, call your surgeon's office. If physician is unavailable and it is an emergency, call 911 or go to the nearest emergency room. . Instructions / Follow-Up Instructions / Follow-Up Call [phone] with any questions or concerns. May use permcath for dialysis Give this to the dialysis nurses. SPECIAL CARE INSTRUCTIONS: Medications: * Continue to take your medications as directed. If you have been given a prescription for Plavix, please fill it immediately and take as directed. Incision Care: * Your puncture site may have some bruising and minor swelling for about one week. * You will have a small dressing covering your puncture site. You may remove the dressing after 24 hours and shower. You may let the warm soapy water run over it, but be sure to dry the puncture site well and keep it dry. * DO NOT IMMERSE THE INCISION IN A TUB/POOL/etc. UNTIL HEALED. * Puncture sites should be kept covered with a band-aid until it begins to heal. Restrictions: * Depending on whether you leg or arm was punctured to access the arteries, you will be required to lay flat, hold your arm still, or both, for about 4 hours after the procedure to prevent bleeding. * Limit your activity for the first 48 hours. You may walk and go up and down steps. Avoid excessive bending or movement at the puncture site. Possible Complications: * Excessive Swelling - after blood flow is improved you may notice increased swelling in the lower legs. This is a normal response. This usually depends on the amount of blockages in the leg, how long they have been there prior to your procedure and how much blood flow was restored. Elevating your legs will help to improve this. Please notify our office ([phone] ) if the swelling does not go away after lying in bed overnight. * Infection/Drainage/Bleeding - Drainage or bleeding from the puncture site should be minimal. If you have excessive bleeding or drainage, call our office ([phone]) right away. * Pain - You may experience some mild pain or soreness at your puncture site. If your pain does not improve, please contact our office ([phone]). Call your doctor and seek emergent treatment if you develop: * Temperature above 101 degrees * Any fever or chills * Any redness or purulent drainage from the puncture site * Any new dusky/blue colored toes or feet with coolness or sharp or aching pain. SKIN IRRITATION: * You may experience some redness and/or swelling in the area where radiation was administered. If any skin irritation occurs, please contact your family physician. FOLLOW UP VISIT: Keep any scheduled doctor appointments. Diet Recommendations Recommended Home Diet: resume previous diet Procedures Procedures Performed: Exchange of Perm Catheter, Venacavagram, Moderate Sedation from 1231 - 1243 Pending Studies Studies pending at discharge: no Medical Emergencies . Who to Call and When: Medical Emergencies: If at any time you feel your situation is an emergency, please call 911 immediately. . Non-Emergent Contact Non-Emergency issues call your: Surgeon . . "Provider Documentation" section prepared by Unruly Mcdonnell. .
[2017-08-12] MEDS ORDERED: MIDAZOLAM HCL 1 MG/ML 2ML VIAL IV ONE (12:50)
[2017-08-12] MEDS ORDERED: FENTANYL CITRATE INJ 50 MCG/1 ML 2 ML VIAL IV ONE (12:50)
[2017-08-12] MEDS ORDERED: HEPARIN SOD (PORCINE) 5000 UNIT/ML 1 ML VIAL IV ONE (12:50)
[2017-08-12] MEDS ORDERED: LIDOCAINE HCL 1% 20 ML VIAL SQ ONE (12:50)
[2017-08-12] MEDS ORDERED: OPTIRAY 300 INJ ONE (12:53)
--- NOTE | 2017-08-12 12:55 | Post Sedation Assessment ---
Post Sedation Assessment General Date of Sedation Aug 12, 2017. Vital Signs: Vital Signs Past 12 Hours Date Time Temp Pulse Resp B/P (MAP) Pulse Ox O2 Delivery O2 Flow Rate FiO2 08/12/17 12:43 61 12 76/48 99 Oxymask 3 08/12/17 12:40 99 Oxymask 3 08/12/17 12:35 99 Oxymask 3 08/12/17 12:30 99 Oxymask 3 08/12/17 10:45 36.6 92 20 122/66 (84) 94 Room Air Post Procedure Recovery Score Activity: (2) Moves 4 extremities * Respiration: (2) Deep breath/cough Circulation: (1) +/-20-49% PreAnes Amber Consciousness: (1) Arouseable (by name) Oxygen Saturation: (2) > 92% On Room Air Post Anesthesia Score: 8 Discharge Sedation Level of Care: Fast Track Phase II Post Sedation Plan On clinical assessment, the patient appears to have tolerated the sedation without complications. Patient is recovering as anticipated. Patient will continue to be monitored by nursing and may be discharged when sedation discharge criteria are met per below protocol. Upon Completions of procedure and additional 15 minutes continue every 5 minute vital signs and the P.A.R. score; then discharge to a Phase I or Fast Track to Phase II per the following guidelines: * Discharge Patient to appropriate Phase II area if PAR is 8 or greater or return to pre- procedure baseline. The post - procedure orders will be as directed. * If PAR score is less than 8 or not return to pre-procedure baseline then patient will follow Phase I monitoring till PAR is reached for Phase II. The Phase I may be done in procedure room or may call to secure a Phase I area. * If naloxone or flumazenil are used for reversal, hold in Phase I for an additional 60 -120 minutes before discharge to Phase II. Please call the Sedation Physician to re-evaluate and complete post-note for discharge to Phase II area. Do NOT discharge from procedure sedation or Phase 1 until post- sedation evaluation note is complete by procedure /sedation MD Sedation Discharge Instructions to be given to the patient at discharge to home.
[2017-08-12] MEDS ORDERED: NURSING VERBAL MED ORDER ONE (13:00)
[2017-08-12 13:05] VITALS: BP 96/53; PULSE 63; TEMP 36.4; O2SAT 94
[2017-08-12] MEDS ORDERED: D5W AND 1/2NSS 250 ML IV SCH (13:30)
[2017-08-12 13:35] VITALS: BP 103/64; PULSE 81; TEMP 36.5; O2SAT 94
[2017-08-12] MEDS ORDERED: BISA10SU3 PR (17:32)
[2017-08-12] MEDS ORDERED: FINA5TAB PO ×2 (17:32→22:25)
[2017-08-12] MEDS ORDERED: SODIENE PR (17:32)
[2017-08-12] MEDS ORDERED: POLY1POW2 PO (17:32)
[2017-08-12] MEDS ORDERED: LATA0.5S OPL (17:32)
[2017-08-12] MEDS ORDERED: LEVO75TA5 PO (19:02)
[2017-08-12] MEDS ORDERED: ONDA4TAB46 PO (19:05)
[2017-08-12] MEDS ORDERED: APIX1TAB PO ×2 (19:09)
[2017-08-12] MEDS ORDERED: MIDO2.5T PO ×2 (19:12)
[2017-08-12] MEDS ORDERED: B-CO1TAB PO ×2 (22:08)
[2017-08-12] MEDS ORDERED: LCTX PO ×2 (22:08)
[2017-08-12] MEDS ORDERED: SUCR1TAB29 PO ×2 (22:08)
[2017-08-12] MEDS ORDERED: FLUD0.1T10 PO (22:08)
[2017-08-12] MEDS ORDERED: FLUD0.1T PO (22:11)
[2017-08-12] MEDS ORDERED: OMEP20CA9 PO ×2 (22:21)
[2017-08-12] MEDS ORDERED: CALC667C4 PO ×2 (22:23)
[2017-08-12] MEDS ORDERED: ACET650S10 PR (22:52)
== END 2017-08-12 13:55 | disposition home or self-care (01) ==
LOC: C.OR 09:54 → C.ACU 13:55
PROVIDERS: ATTEND Surgery Vascular Surgery
DX: T82.49XA Other complication of vascular dialysis catheter, initial encounter (principal); Y83.1 Surgical operation with implant of artificial internal device as the cause of abnormal reaction of the patient, or of later complication, without mention of misadventure at the time of the procedure; N18.6 End stage renal disease; F32.9 Major depressive disorder, single episode, unspecified; E11.9 Type 2 diabetes mellitus without complications; E78.00 Pure hypercholesterolemia, unspecified; R29.818 Other symptoms and signs involving the nervous system; Z99.2 Dependence on renal dialysis; Z86.73 Personal history of transient ischemic attack (TIA), and cerebral infarction without residual deficits

== ENCOUNTER 2017-08-12 17:55 | Emergency (ER) | payer OTHER ==
[~2017-08-12] VITALS: Ht 172.7 cm; Wt 91.7 kg
[~2017-08-12 17:55] MED LIST changes: +BISA10SU3 PR; -CEFAZOLIN 1000MG IV PUSH 7.5 ML IV SCH; -CEFAZOLIN 2000MG IV PUSH 15 ML IV SCH; -D5W AND 1/4NSS 1,000 ML IV SCH; +FINA5TAB PO; +GABA-1220 PO; +LATA0.5S OPL; +POLY1POW2 PO; +SERT50TA PO; +SODIENE PR; -[UNRECOGNIZED DRUG - REMARK] ONE
[2017-08-12 18:13] VITALS: TEMP 36.8; Ht 172.7 cm; Wt 91.7 kg
--- NOTE | 2017-08-12 18:28 | EMERGENCY ROOM VISIT NOTE ---
History Report prepared by Jason: Arely Rios Under the Supervision of: Dr. Jose Guadalupe Duron D.O. First contact with patient: 18:07 Chief Complaint: BLEEDING Stated Complaint: BLEEDING FROM DAILYSIS PORT History of Present Illness The patient is a 61 year old male who presents to the Emergency Room with complaints of persistent bleeding from his dialysis port starting earlier today. He presents to the ED by EMS. The patient had a port placed in his left thigh this morning. The patient noticed that the wound dressings were soaked in blood when he got back to [facility]. The patient is on Eliquis. He is not sure if he has taken his Eliquis today as he takes his medications as they are given to him. He last had dialysis today. His next dialysis is scheduled for 2 days from now. He currently does not have any other complaints. Source of History: patient Onset: earlier today Position: leg (left) Quality: other (bleeding) Timing: other (persistent) Note: Pt reports no other symptoms. Review of Systems See HPI for pertinent positives & negatives. A total of 10 systems reviewed and were otherwise negative. Past Medical & Surgical Medical Problems: (1) Altered mental status (2) Anemia (3) Arrhythmia (4) Bacteremia (5) CAD (coronary artery disease) (6) Congestive Heart Failure Nos (7) Depression (8) Diab W Oth Spec Manifest, Type Ii Or Unspec Type, Not Uncntr (9) Diabetic retinopathy (10) DM type 2 (diabetes mellitus, type 2) (11) End stage renal disease (12) ESRD (end stage renal disease) on dialysis (13) Fluency disorder following cerebrovascular accident (14) History of Clostridium difficile colitis (15) History of CVA (cerebrovascular accident) (16) History of GI bleed (17) History of methicillin resistant staphylococcus aureus (MRSA) (18) History of non-ST elevation myocardial infarction (NSTEMI) (19) Hyperkalemia (20) hyperkalemia, ESRD, wrist fx (21) Hyperlipidemia Nec/Nos (22) Hypertension Nos (23) Hypothyroidism Nos (24) Migraine (25) Morbid obesity (26) Peritonitis (27) Polyneuropathy in diabetes (28) Proteinuria (29) Social disinhibition (30) Vitamin D deficiency Surgical Problems: (1) Great toe amputation status (2) H/O gastric bypass (3) H/O total hip arthroplasty (4) History of cholecystectomy (5) History of colonoscopy with polypectomy (6) History of left below knee amputation Family History FH: heart disease FATHER FHx: cancer FATHER Hypertension Social History Smoking Status: Never Smoker Drug Use: none Marital Status: single Housing Status: alf Occupation Status: disabled Current/Historical Medications Scheduled Apixaban (Eliquis), 2.5 MG PO 4XWK Apixaban (Eliquis), 2.5 MG PO 3XWK B-Complex W/ C & Folic Acid (Nephronex), 1 TAB PO 4XWK B-Complex W/ C & Folic Acid (Nephronex), 1 TAB PO 3XWK Calcium Acetate (Phoslo 667 Mg), 3 CAP PO 3XWK Calcium Acetate (Phoslo 667 Mg), 3 CAP PO 4XWK Finasteride (Proscar), 5 MG PO 3XWK Finasteride (Proscar), 5 MG PO 4XWK Fludrocortisone Acetate (Florinef), 0.1 MG PO 3XWK Fludrocortisone Acetate (Fludrocortisone Acetate), 0.1 MG PO 4XWK Gabapentin (Neurontin), 400 MG PO 3XWK Gabapentin (Neurontin), 400 MG PO 4XWK Lactobacillus Acidophilus (Lactinex), 1 TAB PO 3XWK Lactobacillus Acidophilus (Lactinex), 1 TAB PO 4XWK Latanoprost (Xalatan 0.005% Oph Katya), 1 DROP OPL HS Levothyroxine Sodium (Synthroid), 100 MCG PO DAILY Midodrine (Midodrine HCl), 2.5 MG PO TID Omeprazole (Prilosec), 40 MG PO 3XWK Omeprazole (Prilosec), 40 MG PO 4XWK Sertraline (Zoloft), 1 TAB PO HS Sucralfate (Carafate), 1 GM PO 3XWK Sucralfate (Carafate), 1 GM PO 4XWK Scheduled PRN Acetaminophen (Tylenol), 1 SUPP WY Q6H PRN for Mild Pain/Fever Acetaminophen Tab (Tylenol), 650 MG PO Q6H PRN for Mild Pain/Fever Bisacodyl (Dulcolax), 1 SUPP WY UD PRN for Constipation Magnesium Hydroxide (Milk Of Magnesia), 30 ML PO UD PRN for Constipation Polyethylene Glycol 3350 (Bulk (Polyethylene Glycol 3350), 17 GM PO Q24H PRN for Constipation Sodium Phosphate/Biphosphate (Fleet Enema), 1 EA WY UD PRN for Constipation Allergies Coded Allergies: No Known Allergies (Verified , `, 08/12/17) Physical Exam Vital Signs Date Time Temp Pulse Resp B/P (MAP) Pulse Ox O2 Delivery O2 Flow Rate FiO2 08/12/17 18:13 36.8 63 16 137/59 91 Room Air Physical Exam CONSTITUTIONAL/VITAL SIGNS: Reviewed / noted above. GENERAL: Non-toxic in appearance. INTEGUMENTARY: Warm, dry, and [place]. HEAD: Normocephalic. EYES: without scleral icterus or trauma. ENT/OROPHARYNX: clear and moist. LYMPHADENOPATHY/NECK: Is supple without lymphadenopathy or meningismus. RESPIRATORY: Lungs clear and equal. CARDIOVASCULAR: Regular rate and rhythm. GI/ABDOMEN: Soft and nontender. No organomegaly or pulsatile mass. No rebound or guarding. Normal bowel sounds. EXTREMITIES: BKA LLE. Dialysis catheter in the left groin. There is some dried blood surrounding the catheter site. No active bleeding noted. BACK: No CVA tenderness. NEUROLOGICAL: Intact without focal deficits. PSYCHIATRIC: normal affect. MUSCULOSKELETAL: Normally developed with good muscle tone. Medical Decision & Procedures ED Course 180: Previous medical records were reviewed. The patient was evaluated in room A2. A complete history and physical examination was performed. I discussed the results and findings with the patient. He verbalized agreement of the treatment plan. He was discharged home. Medical Decision There is no clinical findings to suggest significant groin hematoma, anemia or infection. This is a 61-year-old male who presents to the ED with a chief complaint of bleeding from a left femoral dialysis catheter site. The patient had a placed earlier today. When he arrived at the alf, bandage was bloody. He was sent back for evaluation. On my exam, there is no active obvious bleeding. There is no significant palpable hematoma in the left groin. The patient does not have any symptoms to suggest acute anemia. The area was cleaned and a dressing was applied. A pressure dressing using Rigoberto and Dar wrap was applied to the site. The patient was felt to be stable for discharge. He will have this rechecked at the alf and at dialysis on Saturday in 2 days. Medication Reconcilliation Current Medication List: was personally reviewed by me Blood Pressure Screening Patient's blood pressure: Elevated blood pressure Blood pressure disposition: Elevated BP felt to be situational Impression Primary Impression: Bleeding due to dialysis catheter placement Scribe Attestation The scribe's documentation has been prepared under my direction and personally reviewed by me in its entirety. I confirm that the note above accurately reflects all work, treatment, procedures, and medical decision making performed by me. Departure Information Dispostion Home / Self-Care Referrals Teto Martinez D.O. (PCP) Patient Instructions My [facility] Additional Instructions Follow-up with Dr. Mcdonnell for recheck. Go to dialysis as scheduled. Bandage can be removed at that time.
[2017-08-12] MEDS ORDERED: LEVO75TA5 PO (19:02)
[2017-08-12] MEDS ORDERED: ONDA4TAB46 PO (19:05)
[2017-08-12] MEDS ORDERED: APIX1TAB PO ×2 (19:09)
[2017-08-12] MEDS ORDERED: MIDO2.5T PO ×2 (19:12)
[2017-08-12 19:44] VITALS: BP 140/72; PULSE 88; O2SAT 95
[2017-08-12] MEDS ORDERED: FLUD0.1T10 PO (22:08)
[2017-08-12] MEDS ORDERED: SUCR1TAB29 PO ×2 (22:08)
[2017-08-12] MEDS ORDERED: LCTX PO ×2 (22:08)
[2017-08-12] MEDS ORDERED: B-CO1TAB PO ×2 (22:08)
[2017-08-12] MEDS ORDERED: GABA-1220 PO (22:08)
[2017-08-12] MEDS ORDERED: FLUD0.1T PO (22:11)
[2017-08-12] MEDS ORDERED: OMEP20CA9 PO ×2 (22:21)
[2017-08-12] MEDS ORDERED: CALC667C4 PO ×2 (22:23)
[2017-08-12] MEDS ORDERED: FINA5TAB PO (22:25)
[2017-08-12] MEDS ORDERED: ACET650S10 PR (22:52)
== END 2017-08-12 19:46 ==
LOC: EDBD 17:55 → C.EDA 17:57
DX: T82.49XA Other complication of vascular dialysis catheter, initial encounter (principal); I13.2 Hypertensive heart and chronic kidney disease with heart failure and with stage 5 chronic kidney disease, or end stage renal disease; E11.22 Type 2 diabetes mellitus with diabetic chronic kidney disease; N18.6 End stage renal disease; Z99.2 Dependence on renal dialysis; I25.10 Atherosclerotic heart disease of native coronary artery without angina pectoris; I50.9 Heart failure, unspecified; F32.9 Major depressive disorder, single episode, unspecified; E11.319 Type 2 diabetes mellitus with unspecified diabetic retinopathy without macular edema; I25.2 Old myocardial infarction; E78.5 Hyperlipidemia, unspecified; E03.9 Hypothyroidism, unspecified; E11.42 Type 2 diabetes mellitus with diabetic polyneuropathy; Y83.8 Other surgical procedures as the cause of abnormal reaction of the patient, or of later complication, without mention of misadventure at the time of the procedure; Z79.01 Long term (current) use of anticoagulants; Z86.19 Personal history of other infectious and parasitic diseases; Z86.73 Personal history of transient ischemic attack (TIA), and cerebral infarction without residual deficits; Z86.14 Personal history of Methicillin resistant Staphylococcus aureus infection; Z87.19 Personal history of other diseases of the digestive system; Z89.419 Acquired absence of unspecified great toe; Z98.84 Bariatric surgery status; Z96.649 Presence of unspecified artificial hip joint; Z89.512 Acquired absence of left leg below knee; Z82.49 Family history of ischemic heart disease and other diseases of the circulatory system; Z80.9 Family history of malignant neoplasm, unspecified

== ENCOUNTER 2017-09-06 15:17 | Emergency (ER) | payer OTHER ==
[~2017-09-06] VITALS: Ht 172.7 cm; Wt 79.0 kg
[~2017-09-06 15:17] MED LIST changes: +ACET650S10 PR; +APIX1TAB PO; -APIX1TAB3 PO; +B-CO1TAB PO; +CALC667C4 PO; -ESCI10TA17 PO; +FLUD0.1T PO; +FLUD0.1T10 PO; +LCTX PO; -LEVO100T PO; +LEVO75TA5 PO; +MIDO2.5T PO; -MOML PO; +OMEP20CA9 PO; +ONDA4TAB46 PO; -PRMT25 PO; +SUCR1TAB29 PO
[2017-09-06 15:30] VITALS: TEMP 37.1; Ht 172.7 cm; Wt 79.0 kg
--- NOTE | 2017-09-06 16:22 | EMERGENCY ROOM VISIT NOTE ---
History Report prepared by Jason: Alexa Lamb Under the Supervision of: Dr. Everton Kahn M.D. First contact with patient: 15:52 Chief Complaint: NAUSEA Stated Complaint: NAUSEA/DIZZINESS Nursing Triage Summary: Patient to ED via ALS from [facility] states that he felt nauseous and dizzy after recieving dialysis today. States this has happened once before, says "I think they took too much fluid from me". Denies vomitting or abdominal pain. Patient with dialysis catheter in left groin. Noted left BKA. History of Present Illness The patient is a 61 year old male who presents to the Emergency Room with complaints of constant and moderate nausea and dizziness beginning today after receiving dialysis. He also had difficulty breathing and dizziness after he got home. He states he has felt this way once before. He denies any coughing, vomiting, abdominal pain, fevers or chills. His kidney doctor is Dr. Carlos. He has a catheter on his left leg that has been there for 3-4 weeks. He denies any recent falls. Source of History: patient Onset: today after receiving dialysis Position: other (global) Symptom Intensity: moderate Timing: constant Associated Symptoms: No fevers, No chills, No cough, No vomiting, No abdominal pain Note: Positive dizziness and difficulty breathing. Negative recent falls Review of Systems See HPI for pertinent positives & negatives. A total of 10 systems reviewed and were otherwise negative. Past Medical & Surgical Medical Problems: (1) Altered mental status (2) Anemia (3) Arrhythmia (4) Bacteremia (5) CAD (coronary artery disease) (6) Congestive Heart Failure Nos (7) Depression (8) Diab W Oth Spec Manifest, Type Ii Or Unspec Type, Not Uncntr (9) Diabetic retinopathy (10) DM type 2 (diabetes mellitus, type 2) (11) End stage renal disease (12) ESRD (end stage renal disease) on dialysis (13) Fluency disorder following cerebrovascular accident (14) History of Clostridium difficile colitis (15) History of CVA (cerebrovascular accident) (16) History of GI bleed (17) History of methicillin resistant staphylococcus aureus (MRSA) (18) History of non-ST elevation myocardial infarction (NSTEMI) (19) Hyperkalemia (20) hyperkalemia, ESRD, wrist fx (21) Hyperlipidemia Nec/Nos (22) Hypertension Nos (23) Hypothyroidism Nos (24) Migraine (25) Morbid obesity (26) Peritonitis (27) Polyneuropathy in diabetes (28) Proteinuria (29) Social disinhibition (30) Vitamin D deficiency Surgical Problems: (1) Great toe amputation status (2) H/O gastric bypass (3) H/O total hip arthroplasty (4) History of cholecystectomy (5) History of colonoscopy with polypectomy (6) History of left below knee amputation Old medical records were reviewed. Nurse's notes were reviewed and I agree with. Family History FH: heart disease FATHER FHx: cancer FATHER Hypertension Social History Smoking Status: Never Smoker Drug Use: none Marital Status: single Housing Status: [facility] Occupation Status: disabled Current/Historical Medications Scheduled Apixaban (Eliquis), 2.5 MG PO 3XWK Apixaban (Eliquis), 2.5 MG PO 4XWK B-Complex W/ C & Folic Acid (Nephronex), 1 TAB PO 4XWK B-Complex W/ C & Folic Acid (Nephronex), 1 TAB PO 3XWK Calcium Acetate (Phoslo 667 Mg), 3 CAP PO 3XWK Calcium Acetate (Phoslo 667 Mg), 3 CAP PO 4XWK Finasteride (Proscar), 5 MG PO 3XWK Finasteride (Proscar), 5 MG PO 4XWK Fludrocortisone Acetate (Florinef), 0.1 MG PO 3XWK Fludrocortisone Acetate (Fludrocortisone Acetate), 0.1 MG PO 4XWK Gabapentin (Neurontin), 400 MG PO 3XWK Gabapentin (Neurontin), 400 MG PO 4XWK Lactobacillus Acidophilus (Lactinex), 1 TAB PO 3XWK Lactobacillus Acidophilus (Lactinex), 1 TAB PO 4XWK Latanoprost (Xalatan 0.005% Oph Katya), 1 DROP OPL HS Levothyroxine Sodium (Levothyroxine Sodium), 75 MCG PO DAILY Midodrine Hcl (Midodrine Hcl), 2.5 MG PO 3XWK Midodrine Hcl (Midodrine Hcl), 2.5 MG PO 4XWK Omeprazole (Prilosec), 40 MG PO 3XWK Omeprazole (Prilosec), 40 MG PO 4XWK Sertraline (Zoloft), 50 MG PO HS Sucralfate (Carafate), 1 GM PO 3XWK Sucralfate (Carafate), 1 GM PO 4XWK Scheduled PRN Acetaminophen (Tylenol), 1 SUPP NJ Q6H PRN for Pain or Fever Acetaminophen Tab (Tylenol), 650 MG PO Q6H PRN for Pain or Fever Bisacodyl (Dulcolax), 1 SUPP NJ UD PRN for Constipation Ondansetron Hcl (Zofran), 4 MG PO Q6H PRN for Nausea Polyethylene Glycol 3350 (Bulk (Polyethylene Glycol 3350), 17 GM PO Q24H PRN for Constipation Sodium Phosphate/Biphosphate (Fleet Enema), 1 EA NJ UD PRN for Constipation Allergies Coded Allergies: No Known Allergies (Verified , `, 09/06/17) Physical Exam Vital Signs Date Time Temp Pulse Resp B/P (MAP) Pulse Ox O2 Delivery O2 Flow Rate FiO2 09/06/17 20:13 62 18 131/81 97 Room Air 09/06/17 19:15 63 09/06/17 18:08 58 19 96 Room Air 09/06/17 17:26 58 15 107/60 94 Room Air 09/06/17 16:01 59 09/06/17 15:30 37.1 61 16 118/54 95 Room Air Physical Exam General: Chronically ill appearing middle aged male in no acute distress. HEENT: Normal cephalic atraumatic. Pupils are equal round and reactive to light. Extraocular movements are intact. 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 Oropharynx is pink with moist mucous membranes. No swelling of the mouth lips or tongue. Neck: Supple with a midline trachea. No meningeal signs or stiffness, no JVD or bruits. No Stridor. Chest: Clear to auscultation bilaterally. No wheezes or rhonchi. No increased work of breathing. Heart: regular rate and rhythm. Abdomen: Scars from previous surgeries but no tenderness or distention. Extremities: No cyanosis clubbing or edema. No calf tenderness. Left BKA. Dialysis catheter in the left leg, does not appear to be red. Spine/Back. Non tender to palpation. No CVA tenderness Skin: Good turgor without rashes. Neurologic exam: Cranial nerves two through 12 are intact. Motor and sensation are intact and symmetrical throughout. Medical Decision & Procedures ER Provider Diagnostic Interpretation: Radiology results as stated below per my review and radiologist interpretation: CHEST ONE VIEW PORTABLE CLINICAL HISTORY: 61 years-old Male presenting with CHEST PAIN. TECHNIQUE: Portable upright AP view of the chest was obtained. COMPARISON: 05/01/2017. FINDINGS: Cardiomediastinal silhouette normal. Mildly low lung volumes with hypoventilatory changes. No focal opacity. No large effusion or pneumothorax. Osseous structures normal. Upper abdomen normal. IMPRESSION: 1. Mildly low lung volumes with hypoventilatory changes. No acute cardiopulmonary disease. Electronically signed by: Eliot Doty M.D. 09/06/2017 4:51 PM Dictated Date/Time: 09/06/2017 4:51 PM Laboratory Results 09/06/17 17:04 Red Blood Count 3.53, Mean Corpuscular Volume 96.9, Mean Corpuscular Hemoglobin 32.3, Mean Corpuscular Hemoglobin Concent 33.3, Mean Platelet Volume 9.9, Neutrophils (%) (Auto) 55.4, Lymphocytes (%) (Auto) 25.3, Monocytes (%) (Auto) 13.3, Eosinophils (%) (Auto) 5.3, Basophils (%) (Auto) 0.7, Neutrophils # (Auto ) 1.66, Lymphocytes # (Auto) 0.76, Monocytes # (Auto) 0.40, Eosinophils # (Auto ) 0.16, Basophils # (Auto) 0.02 09/06/17 17:04 Test 09/06/17 16:15 09/06/17 17:04 Bedside Glucose 91 mg/dl (70-99) White Blood Count 3.00 K/uL (4.8-10.8) Red Blood Count 3.53 M/uL (4.7-6.1) Hemoglobin 11.4 g/dL (14.0-18.0) Hematocrit 34.2 % (42-52) Mean Corpuscular Volume 96.9 fL (80-100) Mean Corpuscular Hemoglobin 32.3 pg (25-34) Mean Corpuscular Hemoglobin Concent 33.3 g/dl (32-36) Platelet Count 197 K/uL (130-400) Mean Platelet Volume 9.9 fL (7.4-10.4) Neutrophils (%) (Auto) 55.4 % Lymphocytes (%) (Auto) 25.3 % Monocytes (%) (Auto) 13.3 % Eosinophils (%) (Auto) 5.3 % Basophils (%) (Auto) 0.7 % Neutrophils # (Auto) 1.66 K/uL (1.4-6.5) Lymphocytes # (Auto) 0.76 K/uL (1.2-3.4) Monocytes # (Auto) 0.40 K/uL (0.11-0.59) Eosinophils # (Auto) 0.16 K/uL (0-0.5) Basophils # (Auto) 0.02 K/uL (0-0.2) RDW Standard Deviation 52.1 fL (36.4-46.3) RDW Coefficient of Variation 14.8 % (11.5-14.5) Immature Granulocyte % (Auto) 0.0 % Immature Granulocyte # (Auto) 0.00 K/uL (0.00-0.02) Anion Gap 11.0 mmol/L (3-11) Est Creatinine Clear Calc Drug Dose 25.8 ml/min Estimated GFR () 25.4 Estimated GFR (Non- 21.9 BUN/Creatinine Ratio 6.3 (10-20) Calcium Level 8.6 mg/dl (8.5-10.1) Total Bilirubin 0.6 mg/dl (0.2-1) Direct Bilirubin 0.2 mg/dl (0-0.2) Aspartate Amino Transf (AST/SGOT) 15 U/L (15-37) Alanine Aminotransferase (ALT/SGPT) 19 U/L (12-78) Alkaline Phosphatase 116 U/L (45-117) Total Creatine Kinase 29 U/L (39-308) Creatine Kinase MB 1.0 ng/ml (0.5-3.6) Creatine Kinase MB Ratio 3.4 (0-3.0) Troponin I < 0.015 ng/ml (0-0.045) Total Protein 7.6 gm/dl (6.4-8.2) Albumin 3.3 gm/dl (3.4-5.0) Lipase 82 U/L (73-393) Laboratory studies as stated above per my review. Medications Administered Medications (Trade) Dose Ordered Sig/Rigoberto Route Start Time Stop Time Status Last Admin Dose Admin Sodium Chloride 500 ml @ 999 mls/hr Q31M STAT IV 09/06/17 18:34 09/06/17 19:04 DC 09/06/17 18:40 999 MLS/HR ECG Per My Interpretation Indication: other (nausea) Rate (beats per minute): 57 Rhythm: sinus bradycardia Findings: 1st degree AV block, other (low voltage) Comparison ECG Date: February 10, 2017 Change: no significant change ED Course 1553: Past medical records reviewed. The patient was evaluated in room B3, and a complete history and physical examination were performed. 1829: I discussed the patient's case with Dr. Buchanan. He agreed to giving the patient 500 ml of Sodium Chloride 183: Sodium Chloride 500 ml @ 999 mlr/hr IV 1937: Upon reevaluation, the patient is feeling much better. I discussed the results and treatment plan with him. He verbalized agreement of the treatment plan. The patient was discharged home. Medical Decision Differential diagnosis: Etiologies such as cardiac disease, electrolyte abnormalities, infection anemia , as well as others were entertained. This patient comes in as described above. He was placed in room B12. He has a very complicated medical history and has end-stage renal disease. He received his usual dialysis today. He felt nauseated and dizzy after dialysis. He felt the same during the last dialysis so today they made his fluid balance even. He has had no chest pain or shortness of breath. He is feeling a lot better than he was earlier. IV access established and blood work was obtained. he was given a small fluid bolus of 500 cc IV after discussing with Dr. Buchanan who felt that he needed some extra fluid. EKG does not suggest acute coronary syndrome or arrhythmia. He has no acute electrolyte or metabolic abnormality. He has nothing to suggest sepsis or infection. He is feeling a lot better in fact ate a meal here and his abdomen remains benign. His dialysis catheter looks well and does not appear to be infected. I did discuss case with Dr. Buchanan who felt to go home and they will adjust his fluids during his next dialysis. Again, he was given a small fluid bolus here which he tolerated well and is asymptomatic and will be discharged back to the [facility]. He was encouraged to return over the weekend if he has fever, worsening of symptoms, any new problems or concerns. Medication Reconcilliation Current Medication List: was personally reviewed by me Blood Pressure Screening Patient's blood pressure: Normal blood pressure Blood pressure disposition: Did not require urgent referral Consults Time Called: 1824 Consulting Physician: Dr. Buchanan Returned Call: 1829 He agreed to giving the patient 500 ml of Sodium Chloride Impression Primary Impression: Nausea Additional Impressions: Dizziness ESRD (end stage renal disease) on dialysis Scribe Attestation The scribe's documentation has been prepared under my direction and personally reviewed by me in its entirety. I confirm that the note above accurately reflects all work, treatment, procedures, and medical decision making performed by me. Departure Information Dispostion Home / Self-Care Referrals No Doctor, Assigned (PCP) Forms HOME CARE DOCUMENTATION FORM, IMPORTANT VISIT INFORMATION Patient Instructions My [facility] Additional Instructions Rest. Return if: Increasing symptoms, abdominal pain, fever or chills, worsening symptoms, any new problems or concerns Follow-up with your doctor on Saturday for recheck Problem Qualifiers
--- NOTE | 2017-09-06 16:53 | DIAGNOSTIC IMAGING REPORT ---
CHEST ONE VIEW PORTABLE CLINICAL HISTORY: 61 years-old Male presenting with CHEST PAIN. TECHNIQUE: Portable upright AP view of the chest was obtained. COMPARISON: 05/01/2017. FINDINGS: Cardiomediastinal silhouette normal. Mildly low lung volumes with hypoventilatory changes. No focal opacity. No large effusion or pneumothorax. Osseous structures normal. Upper abdomen normal. IMPRESSION: 1. Mildly low lung volumes with hypoventilatory changes. No acute cardiopulmonary disease. Electronically signed by: Eliot Doty M.D. 09/06/2017 4:51 PM Dictated Date/Time: 09/06/2017 4:51 PM
[2017-09-06 17:26] LABS: BASO % 0.7 %; BASO ABS # 0.02 K/uL (0-0.2); EOS % 5.3 %; EOS ABS # 0.16 K/uL (0-0.5); HEMATOCRIT 34.2 % (42-52); HEMOGLOBIN 11.4 g/dL (14.0-18.0); LYMPH % 25.3 %; LYMPH ABS # 0.76 K/uL (1.2-3.4); MEAN CELL VOLUME 96.9 fL (80-100); MEAN CORPUSCULAR HEMOGLOBIN 32.3 pg (25-34); MEAN CORPUSCULAR HGB CONC 33.3 g/dl (32-36); MEAN PLATELET VOLUME 9.9 fL (7.4-10.4); MONO % 13.3 %; NEUT % 55.4 %; NEUT ABS # 1.66 K/uL (1.4-6.5); PLATELET COUNT 197 K/uL (130-400); RED CELL DISTRIBUTION WIDTH CV 14.8 % (11.5-14.5); RED CELL DISTRIBUTION WIDTH SD 52.1 fL (36.4-46.3)
[2017-09-06 17:42] LABS: ALBUMIN 3.3 gm/dl (3.4-5.0); CALCIUM 8.6 mg/dl (8.5-10.1); CREATININE 2.98 mg/dl (0.60-1.40); POTASSIUM 3.8 mmol/L (3.5-5.1)
[2017-09-06 17:47] LABS: TOTAL PROTEIN 7.6 gm/dl (6.4-8.2)
[2017-09-06] MEDS ORDERED: SODIUM CHLORIDE 0.9% 500ML 500 ML IV STA (18:34)
[2017-09-06 20:13] VITALS: BP 131/81; PULSE 62; O2SAT 97
== END 2017-09-06 20:47 | disposition home or self-care (01) ==
LOC: EDBD 15:17 → C.EDB 15:18
DX: R11.0 Nausea (principal); R42 Dizziness and giddiness; N18.6 End stage renal disease; Z99.2 Dependence on renal dialysis; I49.9 Cardiac arrhythmia, unspecified; D64.9 Anemia, unspecified; I25.10 Atherosclerotic heart disease of native coronary artery without angina pectoris; F32.9 Major depressive disorder, single episode, unspecified; E11.319 Type 2 diabetes mellitus with unspecified diabetic retinopathy without macular edema; I50.9 Heart failure, unspecified; I25.2 Old myocardial infarction; E87.5 Hyperkalemia; E78.5 Hyperlipidemia, unspecified; I11.0 Hypertensive heart disease with heart failure; E03.9 Hypothyroidism, unspecified; G43.909 Migraine, unspecified, not intractable, without status migrainosus; E66.01 Morbid (severe) obesity due to excess calories; R80.9 Proteinuria, unspecified; E55.9 Vitamin D deficiency, unspecified; Z89.512 Acquired absence of left leg below knee; Z86.14 Personal history of Methicillin resistant Staphylococcus aureus infection; Z86.19 Personal history of other infectious and parasitic diseases; Z82.49 Family history of ischemic heart disease and other diseases of the circulatory system; Z80.9 Family history of malignant neoplasm, unspecified; Z79.01 Long term (current) use of anticoagulants; Z79.899 Other long term (current) drug therapy

== ENCOUNTER → 2017-09-07 | Outpatient (CLI) | payer OTHER ==
[2017-09-07 07:18] LABS: BASO % 0.5 %; BASO ABS # 0.02 K/uL (0-0.2); EOS % 4.1 %; EOS ABS # 0.15 K/uL (0-0.5); HEMATOCRIT 31.1 % (42-52); HEMOGLOBIN 10.2 g/dL (14.0-18.0); LYMPH % 17.6 %; LYMPH ABS # 0.64 K/uL (1.2-3.4); MEAN CELL VOLUME 95.7 fL (80-100); MEAN CORPUSCULAR HEMOGLOBIN 31.4 pg (25-34); MEAN CORPUSCULAR HGB CONC 32.8 g/dl (32-36); MEAN PLATELET VOLUME 10.2 fL (7.4-10.4); MONO % 13.5 %; MONO ABS # 0.49 K/uL (0.11-0.59); NEUT % 64.3 %; NEUT ABS # 2.34 K/uL (1.4-6.5); PLATELET COUNT 201 K/uL (130-400); RED CELL DISTRIBUTION WIDTH CV 14.5 % (11.5-14.5); RED CELL DISTRIBUTION WIDTH SD 50.7 fL (36.4-46.3); WHITE BLOOD COUNT 3.64 K/uL (4.8-10.8)
[2017-09-07 07:35] LABS: CALCIUM 8.3 mg/dl (8.5-10.1); CARBON DIOXIDE 27 mmol/L (21-32); CREATININE 4.35 mg/dl (0.60-1.40); GLUCOSE 86 mg/dl (70-99); POTASSIUM 4.4 mmol/L (3.5-5.1); SODIUM 128 mmol/L (136-145)
[2017-09-07 07:39] LABS: BLOOD UREA NITROGEN 29 mg/dl (7-18)
== END | disposition home or self-care (01) ==
LOC: C.LABUPNIT 11:07
PROVIDERS: ATTEND Nurse Practitioner Family
DX: I10 Essential (primary) hypertension (principal); N18.6 End stage renal disease

== ENCOUNTER 2017-09-09 10:24 | Day surgery (SDC) | payer OTHER ==
[2017-09-09] VITALS (7 sets, daily range): BP systolic 91–116; BP diastolic 44–61; PULSE 55–79; TEMP 36.4–36.9; O2SAT 94–98; Ht 172.7 cm; Wt 82.0 kg
[~2017-09-09] VITALS: Ht 172.7 cm; Wt 82.0 kg
[2017-09-09] MEDS ORDERED: FENTANYL CITRATE INJ 50 MCG/1 ML 2 ML VIAL ONE ×2 (10:29→13:58)
[2017-09-09] MEDS ORDERED: MIDAZOLAM HCL 1 MG/ML 2ML VIAL ONE ×2 (10:29→13:59)
[2017-09-09] MEDS ORDERED: D5W AND 1/4NSS 1,000 ML IV SCH (11:36)
--- NOTE | 2017-09-09 11:36 | History and Physical ---
History & Physical Date of Service Sep 09, 2017. History & Physical Chief Complaint: End stage renal disease, malfunctioning left femoral permcath History of Present Illness The patient is a 60 year old male with hx of ESRD on HD who has had multiple prosthetic AV accesses placed in past, which have all occluded and is dialyzing permanently through a TDC. Dialysis in unable to use his permcath. Per HD unit , pt had no flow through the permcath this morning. The cuff of the permcath is exposed. Pt denies PEOPLES, fever, chills, chest pain, SOB, abd pain, N/V, rest pain, claudication, other complaints. Allergies No Known Allergies (Unverified , 10/01/13) Surgical / Medical History Past Medical/Surgical History: CVA/TIA, Depression, Diabetes, High Cholesterol , Kidney Disease, Neurological Disorder, Reflux, Thyroid Disease Review of Systems Constitutional: No chills, No diaphoresis, No fever, No malaise, No weakness, No weight gain, No weight loss, No sweats, No fatigue, No problem reported Respiratory: No cough, No cyanosis, No MACIEL, No hemoptysis, No orthopnea, No PND , No short of breath, No sputum production, No stridor, No wheezing, No dyspnea , No problem reported Cardiovascular: No chest pain, No chest tightness, No chest pressure, No palpitations, No syncope, No diaphoresis, No edema, No intermittent claudication , No orthopnea, No cyanosis, No mumur, No lightheadedness, No paroxysmal nocturnal dyspnea, No problem reported Gastrointestinal: No abdominal pain, No constipation, No diarrhea, No nausea, No vomiting, No anorexia, No appetite changes, No belching, No flatulence, No food intolerance, No hematemesis, No hemorrhoids, No hematochezia, No stool changes, No heartburn, No indigestion, No dysphagia, No rectal bleeding, No problem reported Genitourinary - Male: + problem reported (renal failure) Musculoskeletal: No back pain, No gout, No joint pain, No joint swelling, No muscle pain, No muscle stiffness, No muscle weakness, No neck pain, No problem reported Neurologic: No dizziness, No weakness, No headache, No lethargy, No numbness, No paresthesia, No pre-existing deficit, No seizures, No tics, No tingling, No tremors, No vertigo, No memory loss, No LOC, No problem reported Psychiatric: No anxiety, No alcohol abuse, No auditory hallucinations, No depression, No drug abuse, No homicidal ideation, No mood changes, No suicidal ideation, No visual hallucinations, No problem reported Physical Exam: Constitutional: General Apperance: chronically ill appearing male, well-nourished, well- developed obese Level of Distress: NAD Ambulation: wheelchair Psychiatric: Mental Status: active & alert, normal mood, normal affect Orientation: oriented except where noted, to time, to place, to person Memory: recent memory normal, remote memory normal Neck: supple Lungs: Auscultation: breath sounds normal, decreased Heart Auscultation: RRR Peripheral Pulses: Carotid Pulse: normal on the left, normal on the right Radial Pulse: normal on the left, normal on the right Femoral Pulse: normal on the left, normal on the right Abdomen: Inspection & Palpation: soft, non-distended. CAPD catheter in place Musculoskeletal: normal Extremities: Upper Right: no cyanosis, no edema, no varicosities, no palpable cord, no clubbing, no ulcers, no mottling Upper Left: no cyanosis, no edema, no varicosities, no palpable cord, no clubbing, no ulcers, no mottling, Lower Right: no cyanosis, no edema, no varicosities, no palpable cord, no clubbing, no ulcers, no mottling Lower Left: no cyanosis, no edema, no varicosities, no palpable cord, no clubbing, no ulcers, no mottling. BKA. left femoral permcath Neurologic: Cranial Nerves: grossly intact Sensation: grossly intact Assessment and Plan Imp: End stage renal disease Malfunctioning permcath Plan: Patient is admitted for exchange of permcath. Procedure, risks, benefits, and alternatives discussed with pt, he expresses understanding and agreement.
[2017-09-09] MEDS ORDERED: CEFAZOLIN 2000MG IV PUSH 15 ML IV SCH (12:00)
[2017-09-09 12:43] LABS: POTASSIUM 4.2 mmol/L (3.5-5.1)
--- NOTE | 2017-09-09 13:49 | Pre Sedation Assessment ---
Pre Sedation Assessment General Date of Sedation: Sep 09, 2017. Vital Signs Past 12 Hours Date Time Temp Pulse Resp B/P (MAP) Pulse Ox O2 Delivery O2 Flow Rate FiO2 09/09/17 10:51 36.5 57 20 116/61 (79) 98 Room Air Review Cardiovascular: regular rate, rhythm Lungs: lungs clear Pre-Sedation Airway Assessment Smoking Status: Never Smoker Hx of Sleep Apnea: No Short Thick Neck: No Thyro-mental Distance: > 3 Finger Breadths Oral Cavity: Chipped Teeth Mallampati Classification: Class II ASA Classification: Class III NPO Status Date of Last Intake of Fluids: Sep 09, 2017 Time of Last Intake of Fluids: 0700 Date of Last Intake of Solids: Sep 09, 2017 Time of Last Intake of Solids: 0700 Procedure Planning Contraindications for Sedation: None Current Medications Reviewed: Yes Notes The planned sedation has been discussed with the patient. Informed Consent was obtained. I have identified the patient, determined the appropriateness of sedation and have assessed the patient immediately prior to the procedure. All medicine(s) and interventions are by my order.
[2017-09-09] MEDS ORDERED: HEPARIN SOD (PORCINE) 5000 UNIT/ML 1 ML VIAL ONE (14:01)
--- NOTE | 2017-09-09 14:13 | Discharge Instructions ---
Discharge Instructions Date of Service Sep 09, 2017. Visit Reason for Visit: End Stage Renal Disease, Malfunctioning Catheter Discharge Discharge Diagnosis / Problem: Malfunctioning permcath Discharge Goals Goal(s): Therapeutic intervention Activity Recommendations Activity Limitations: resume your previous activity Anesthesia . Post Anesthesia Instructions: If you have had General Anesthesia or IV Sedation: * Do not drive today. * Resume driving when surgeon permits. * Do not make important decisions or sign legal documents today. * Call surgeon for: 1. Temperature elevations greater than 101 degrees F. 2. Uncontrollable pain. 3. Excessive bleeding. 4. Persistent nausea and vomiting. 5. Medication intolerance (nausea, vomiting or rash). * For nausea and vomiting use only clear liquids such as: tea, soda, bouillon until nausea subsides, then gradually increase diet as tolerated. * If you have any concerns or questions, call your surgeon's office. If physician is unavailable and it is an emergency, call 911 or go to the nearest emergency room. . Instructions / Follow-Up Instructions / Follow-Up Call [phone] with any questions or concerns. May use permcath for dialysis SPECIAL CARE INSTRUCTIONS: Medications: * Continue to take your medications as directed. If you have been given a prescription for Plavix, please fill it immediately and take as directed. Incision Care: * Your puncture site may have some bruising and minor swelling for about one week. * You will have a small dressing covering your puncture site. You may remove the dressing after 24 hours and shower. You may let the warm soapy water run over it, but be sure to dry the puncture site well and keep it dry. * DO NOT IMMERSE THE INCISION IN A TUB/POOL/etc. UNTIL HEALED. * Puncture sites should be kept covered with a band-aid until it begins to heal. Restrictions: * Depending on whether you leg or arm was punctured to access the arteries, you will be required to lay flat, hold your arm still, or both, for about 4 hours after the procedure to prevent bleeding. * Limit your activity for the first 48 hours. You may walk and go up and down steps. Avoid excessive bending or movement at the puncture site. Possible Complications: * Excessive Swelling - after blood flow is improved you may notice increased swelling in the lower legs. This is a normal response. This usually depends on the amount of blockages in the leg, how long they have been there prior to your procedure and how much blood flow was restored. Elevating your legs will help to improve this. Please notify our office ([phone] ) if the swelling does not go away after lying in bed overnight. * Infection/Drainage/Bleeding - Drainage or bleeding from the puncture site should be minimal. If you have excessive bleeding or drainage, call our office ([phone]) right away. * Pain - You may experience some mild pain or soreness at your puncture site. If your pain does not improve, please contact our office ([phone]). Call your doctor and seek emergent treatment if you develop: * Temperature above 101 degrees * Any fever or chills * Any redness or purulent drainage from the puncture site * Any new dusky/blue colored toes or feet with coolness or sharp or aching pain. SKIN IRRITATION: * You may experience some redness and/or swelling in the area where radiation was administered. If any skin irritation occurs, please contact your family physician. FOLLOW UP VISIT: Keep any scheduled doctor appointments. Diet Recommendations Recommended Home Diet: resume previous diet Pending Studies Studies pending at discharge: no Medical Emergencies . Who to Call and When: Medical Emergencies: If at any time you feel your situation is an emergency, please call 911 immediately. . Non-Emergent Contact Non-Emergency issues call your: Surgeon . . "Provider Documentation" section prepared by Unruly Mcdonnell. .
[2017-09-09] MEDS ORDERED: MIDAZOLAM HCL 1 MG/ML 2ML VIAL IV ONE (14:15)
[2017-09-09] MEDS ORDERED: FENTANYL CITRATE INJ 50 MCG/1 ML 2 ML VIAL IV ONE (14:15)
[2017-09-09] MEDS ORDERED: LIDOCAINE HCL 1% 20 ML VIAL INJ ONE (14:22)
[2017-09-09] MEDS ORDERED: HEPARIN SOD (PORCINE) 5000 UNIT/ML 1 ML VIAL IV ONE (14:22)
[2017-09-09] MEDS ORDERED: ORM MISCELLANEOUS MED XX ONE (14:26)
--- NOTE | 2017-09-09 14:28 | [facility] Operative Report ---
Operative Report Operative Date Sep 09, 2017. Pre-Operative Diagnosis Malfunctioning femoral permcath Post-Operative Diagnosis Malfunctioning femoral permcath Procedure(s) Performed Exchange of femoral permcath Fluoro for positioning Conscious sedation [id number] Surgeon Kecia Powerhouse Laborer Surgeon(s) none Estimated Blood Loss 0 Findings Tip in the distal inferior vena cava just above the iliac bifurcation. The catheter aspirated and flushed easily. Specimens catheter removed Drains None Anesthesia Type IV Sedat Cons RN Only Complication(s) none Disposition no Indications This is a 61-year-old gentleman with a left femoral PermCath which is nonfunctional. Exchange was recommended. I have discussed the risks options and benefits of the procedure with the patient. The patient understands the risks options and benefits and agrees to the procedure. Description of Procedure Patient was takent to the angio suite and placed in the supine position. The left groin and catheter were prepped and draped in a sterile manner. Local anesthesia was then administered to the appropriate areas. A guidewire was then passed centrally under fluoroscopic imaging through the old permcath. The old permcath was removed after freeing up the dacron cuff of the permcath using blunt and sharp dissection. A new left 42 cm permcath was inserted without difficulty. The catheter was sutured in placed. Both ports aspirated and flushed easily and were then packed with heparin. A sterile dressing was applied to the catheter. The patient left the angio suite in good condition and tolerated the procedure well. I attest to the content of the Intraoperative Record and any orders documented therein. Any exceptions are noted below.
--- NOTE | 2017-09-09 14:29 | Post Sedation Assessment ---
Post Sedation Assessment General Date of Sedation Sep 09, 2017. Vital Signs: Vital Signs Past 12 Hours Date Time Temp Pulse Resp B/P (MAP) Pulse Ox O2 Delivery O2 Flow Rate FiO2 09/09/17 14:10 Mask 4 09/09/17 10:51 36.5 57 20 116/61 (79) 98 Room Air Post Procedure Recovery Score Activity: (2) Moves 4 extremities * Respiration: (2) Deep breath/cough Circulation: (1) +/-20-49% PreAnes Amber Consciousness: (2) Fully Awake Oxygen Saturation: (2) > 92% On Room Air Post Anesthesia Score: 9 Discharge Sedation Level of Care: Fast Track Phase II Post Sedation Plan On clinical assessment, the patient appears to have tolerated the sedation without complications. Patient is recovering as anticipated. Patient will continue to be monitored by nursing and may be discharged when sedation discharge criteria are met per below protocol. Upon Completions of procedure and additional 15 minutes continue every 5 minute vital signs and the P.A.R. score; then discharge to a Phase I or Fast Track to Phase II per the following guidelines: * Discharge Patient to appropriate Phase II area if PAR is 8 or greater or return to pre- procedure baseline. The post - procedure orders will be as directed. * If PAR score is less than 8 or not return to pre-procedure baseline then patient will follow Phase I monitoring till PAR is reached for Phase II. The Phase I may be done in procedure room or may call to secure a Phase I area. * If naloxone or flumazenil are used for reversal, hold in Phase I for an additional 60 -120 minutes before discharge to Phase II. Please call the Sedation Physician to re-evaluate and complete post-note for discharge to Phase II area. Do NOT discharge from procedure sedation or Phase 1 until post- sedation evaluation note is complete by procedure /sedation MD Sedation Discharge Instructions to be given to the patient at discharge to home.
== END 2017-09-09 17:58 ==
LOC: C.ACU 10:24
PROVIDERS: ATTEND Surgery Vascular Surgery
DX: Z45.2 Encounter for adjustment and management of vascular access device (principal); N18.6 End stage renal disease; Z99.2 Dependence on renal dialysis; Z86.73 Personal history of transient ischemic attack (TIA), and cerebral infarction without residual deficits

== ENCOUNTER → 2017-10-01 | Outpatient (CLI) | payer OTHER ==
[2017-10-01 09:27] LABS: HEMOGLOBIN A1C 4.8 % (4.5-5.6)
== END ==
LOC: C.LABUPNIT 08:00
PROVIDERS: ATTEND Nurse Practitioner Family
DX: E11.9 Type 2 diabetes mellitus without complications (principal)

== ENCOUNTER → 2017-10-14 | Outpatient (CLI) | payer OTHER | LOC: C.LABUPNIT 09:51 | PROVIDERS: ATTEND Nurse Practitioner Family | DX: A04.72 Enterocolitis due to Clostridium difficile, not specified as recurrent (principal) ==

== ENCOUNTER → 2017-12-24 | Outpatient (CLI) | payer OTHER ==
[2017-12-24 10:49] LABS: HEMOGLOBIN A1C 5.3 % (4.5-5.6)
== END ==
LOC: C.LABUPNIT 09:16
PROVIDERS: ATTEND Nurse Practitioner Family
DX: E11.9 Type 2 diabetes mellitus without complications (principal)

== ENCOUNTER 2018-01-10 10:37 | Emergency (ER) | payer OTHER ==
[~2018-01-10] VITALS: Ht 170.2 cm; Wt 92.0 kg
[2018-01-10 10:40] VITALS: TEMP 36.8; Ht 170.2 cm; Wt 92.0 kg
--- NOTE | 2018-01-10 11:13 | EMERGENCY ROOM VISIT NOTE ---
History Report prepared by Jason: Jessie Cabello Under the Supervision of: Dr. Ana Paula Davila M.D. First contact with patient: 11:04 Chief Complaint: BACK PAIN Stated Complaint: BACK PAIN History of Present Illness The patient is a 62 year old male who presents to the Emergency Room with complaints of constant lower back pain beginning 2 days ago. He rates his pain at an 8/10. The patient states that his pain began before he went to dialysis and states that he took 2 Tylenol. He states that he took another 2 Tylenol at dialysis and states that he had his full dialysis treatment. The patient states that he does not make urine. He reports that he is a non-insulin dependent diabetic. He also reports a history of a gastric bypass 10-15 years ago and states that he had a left-sided stroke. The patient reports that after his stroke his balance was bad. The patient states that he has a history of a hip replacement. He states that he is on blood thinners and reports a history of 1 blood clot. The patient denies any recent falls. Source of History: patient Onset: 2 days ago Position: back (lower) Symptom Intensity: rated at an 8/10 Quality: other (pain) Timing: constant Review of Systems See HPI for pertinent positives & negatives. A total of 10 systems reviewed and were otherwise negative. Past Medical & Surgical Medical Problems: (1) Altered mental status (2) Anemia (3) Arrhythmia (4) Bacteremia (5) CAD (coronary artery disease) (6) Congestive Heart Failure Nos (7) Depression (8) Diab W Oth Spec Manifest, Type Ii Or Unspec Type, Not Uncntr (9) Diabetes (10) Diabetic retinopathy (11) Dialysis patient (12) DM type 2 (diabetes mellitus, type 2) (13) End stage renal disease (14) ESRD (end stage renal disease) on dialysis (15) Fluency disorder following cerebrovascular accident (16) History of Clostridium difficile colitis (17) History of CVA (cerebrovascular accident) (18) History of GI bleed (19) History of methicillin resistant staphylococcus aureus (MRSA) (20) History of non-ST elevation myocardial infarction (NSTEMI) (21) Hyperkalemia (22) hyperkalemia, ESRD, wrist fx (23) Hyperlipidemia Nec/Nos (24) Hypertension Nos (25) Hypothyroidism Nos (26) Migraine (27) Morbid obesity (28) Peritonitis (29) Polyneuropathy in diabetes (30) Proteinuria (31) Social disinhibition (32) Vitamin D deficiency Surgical Problems: (1) Great toe amputation status (2) H/O gastric bypass (3) H/O total hip arthroplasty (4) History of cholecystectomy (5) History of colonoscopy with polypectomy (6) History of left below knee amputation Family History FH: heart disease FATHER FHx: cancer FATHER Hypertension Social History Smoking Status: Never Smoker Drug Use: none Marital Status: single Housing Status: group home Occupation Status: disabled Current/Historical Medications Scheduled Apixaban (Eliquis), 2.5 MG PO BID Calcium Acetate (Phoslo 667 Mg), 2,001 MG PO TIDM Escitalopram (Lexapro), 10 MG PO DAILY Finasteride (Proscar), 5 MG PO DAILY Fludrocortisone Acetate (Fludrocortisone Acetate), 0.1 MG PO DAILY Gabapentin (Neurontin), 400 MG PO DAILY Lactobacillus Acidophilus (Lactinex), 1 TAB PO BID Latanoprost (Xalatan 0.005% Oph Katya), 1 DROPS OPB HS Levothyroxine Sodium (Levothyroxine Sodium), 75 MCG PO DAILY Midodrine (Midodrine HCl), 2.5 MG PO TID Polyethylene Glycol 3350 (Miralax), 17 GM PO DAILY Sertraline (Zoloft), 50 MG PO HS Sucralfate (Carafate), 1 GM PO BID Vitamin B Cmplx/Vitc/Folic Ac (Nephrocaps), 1 CAP PO DAILY Scheduled PRN Acetaminophen (Tylenol), 650 MG PO Q6 PRN for Pain Acetaminophen (Tylenol), 650 MG PO UD PRN for Headache Aluminum/Magnesium/Simeth (Maalox Max Susp), 30 ML PO UD PRN for Indigestion Bisacodyl (Dulcolax), 1 SUPP NC UD PRN for Constipation Ondansetron Hcl (Zofran), 4 MG PO Q6 PRN for Nausea Allergies Coded Allergies: No Known Allergies (Verified , `, 01/10/18) Physical Exam Vital Signs Date Time Temp Pulse Resp B/P (MAP) Pulse Ox O2 Delivery O2 Flow Rate FiO2 01/10/18 14:55 53 85/52 95 01/10/18 14:00 54 72/41 94 Room Air 01/10/18 13:30 58 18 72/39 95 Room Air 01/10/18 12:27 56 17 79/56 01/10/18 12:15 62 01/10/18 12:08 56 12 78/38 93 Nasal Cannula 01/10/18 10:40 36.8 66 16 95/47 96 Room Air Physical Exam Vital signs reviewed. General: Chronically ill-appearing male, in no significant distress. HEENT: No scleral icterus, PERRLA, neck supple. Atraumatic. Cardiovascular: Regular rate and rhythm, no extra sounds. Pulmonary: Clear to auscultation bilaterally, normal work of breathing. Abdomen: Soft, nontender, nondistended, positive bowel sounds. Redundant soft tissue to the abdomen. No specific point tenderness. Musculoskeletal: Atraumatic, no peripheral edema. Left BKA. Nontender along the thoracic and lumbar spine. No step-off deformity. No CVA tenderness. Neurologic: Patient awake alert and oriented x 3 Skin: Warm, dry, no rash Medical Decision & Procedures ER Provider Diagnostic Interpretation: Radiology results as stated below per my review and radiologist interpretation: L-SPINE MIN 4 VIEWS ROUTINE CLINICAL HISTORY: 62 years-old Male presenting with Low back pain x 2 days. TECHNIQUE: Frontal, bilateral oblique, lateral, and coned in lateral views of the lumbar spine were obtained. COMPARISON: 02/05/2014. FINDINGS: Total left hip arthroplasty. Left femoral dialysis catheter projects over the level of L3. Atherosclerosis. Nonobstructive bowel gas pattern. Moderate stool burden. Multiple suture lines project over the bowel in the left mid abdomen. Cholecystectomy clips may be present. Osteopenia. No evidence of scoliosis. Normal lumbar lordosis. Vertebral body height loss anteriorly at T10, T11, T12, and minimally at L1. These deformities were present in 2013. No new vertebral body compression deformity. Vertebral body alignment preserved. Intervertebral disc heights preserved though vacuum disc phenomenon may be present at L5-S1. No advanced degenerative change in the lumbar spine. No radiographic evidence of osseous neural foraminal narrowing. IMPRESSION: 1. Osteopenia suspected. 2. Stable compression deformities in the thoracolumbar junction unchanged since 2013. 3. No radiographic evidence of acute osseous injury or advanced degenerative change. Electronically signed by: Eliot Doty M.D. 01/10/2018 12:35 PM Dictated Date/Time: 01/10/2018 12:32 PM Laboratory Results 8/10/18 11:50 Red Blood Count 3.83, Mean Corpuscular Volume 98.7, Mean Corpuscular Hemoglobin 32.4, Mean Corpuscular Hemoglobin Concent 32.8, Mean Platelet Volume 10.4, Neutrophils (%) (Auto) 58.2, Lymphocytes (%) (Auto) 23.0, Monocytes (%) (Auto) 14.6, Eosinophils (%) (Auto) 3.6, Basophils (%) (Auto) 0.3, Neutrophils # (Auto ) 2.28, Lymphocytes # (Auto) 0.90, Monocytes # (Auto) 0.57, Eosinophils # (Auto ) 0.14, Basophils # (Auto) 0.01 01/10/18 11:50 Test 01/10/18 11:50 White Blood Count 3.91 K/uL (4.8-10.8) Red Blood Count 3.83 M/uL (4.7-6.1) Hemoglobin 12.4 g/dL (14.0-18.0) Hematocrit 37.8 % (42-52) Mean Corpuscular Volume 98.7 fL (80-100) Mean Corpuscular Hemoglobin 32.4 pg (25-34) Mean Corpuscular Hemoglobin Concent 32.8 g/dl (32-36) Platelet Count 185 K/uL (130-400) Mean Platelet Volume 10.4 fL (7.4-10.4) Neutrophils (%) (Auto) 58.2 % Lymphocytes (%) (Auto) 23.0 % Monocytes (%) (Auto) 14.6 % Eosinophils (%) (Auto) 3.6 % Basophils (%) (Auto) 0.3 % Neutrophils # (Auto) 2.28 K/uL (1.4-6.5) Lymphocytes # (Auto) 0.90 K/uL (1.2-3.4) Monocytes # (Auto) 0.57 K/uL (0.11-0.59) Eosinophils # (Auto) 0.14 K/uL (0-0.5) Basophils # (Auto) 0.01 K/uL (0-0.2) RDW Standard Deviation 53.0 fL (36.4-46.3) RDW Coefficient of Variation 14.8 % (11.5-14.5) Immature Granulocyte % (Auto) 0.3 % Immature Granulocyte # (Auto) 0.01 K/uL (0.00-0.02) Anion Gap 8.0 mmol/L (3-11) Est Creatinine Clear Calc Drug Dose 35.1 ml/min Estimated GFR () 32.4 Estimated GFR (Non- 28.0 BUN/Creatinine Ratio 6.4 (10-20) Calcium Level 8.6 mg/dl (8.5-10.1) Magnesium Level 2.0 mg/dl (1.8-2.4) Total Bilirubin 0.5 mg/dl (0.2-1) Direct Bilirubin 0.2 mg/dl (0-0.2) Aspartate Amino Transf (AST/SGOT) 22 U/L (15-37) Alanine Aminotransferase (ALT/SGPT) 28 U/L (12-78) Alkaline Phosphatase 182 U/L (45-117) Troponin I < 0.015 ng/ml (0-0.045) Total Protein 8.2 gm/dl (6.4-8.2) Albumin 3.7 gm/dl (3.4-5.0) Lipase 101 U/L (73-393) Laboratory results per my review. Medications Administered Medications (Trade) Dose Ordered Sig/Rigoberto Route Start Time Stop Time Status Last Admin Dose Admin Oxycodone HCl (Roxicodone Immediate Rel Tab) 5 mg NOW STAT PO 01/10/18 11:21 01/10/18 11:23 DC 01/10/18 11:30 5 MG Midodrine (Proamatine Tab) 2.5 mg NOW STAT PO 01/10/18 12:11 01/10/18 12:12 DC 01/10/18 12:26 2.5 MG Sodium Chloride 250 ml @ 999 mls/hr Q16M STAT IV 01/10/18 12:11 01/10/18 12:26 DC 01/10/18 12:11 999 MLS/HR ED Course 1107: Past medical records reviewed. The patient was evaluated in room C4. A complete history and physical examination was performed. 1211: The patient's blood pressure dropped but he takes Midodrine and just had dialysis. 1350: Upon reevaluation, the patient appeared to have improvement of his symptoms. I discussed findings with him. He verbalized agreement of the treatment plan. He was discharged home. Medical Decision Differential diagnosis: Etiologies such as musculoskeletal, disc herniation, fracture, aortic disease, metastatic disease, cord compression, discitis, infection, renal colic, gastrointestinal, acute exacerbation of chronic back pain, sciatica, cauda equina, as well as others were entertained. This patient was evaluated and appeared to be in no significant distress. Physical examination reveals a chronically ill appearing male with a left BKA. Patient was given OxyIR 5 mg. He is status post gastric bypass and is on hemodialysis for end-stage renal disease. The patient is noted to be hypotensive, which is his baseline. He does take Midodrin which he missed this afternoon. The patient was given 2.5 mg, his home dose. X-rays of the lumbar spine reveal chronic compression fractures, likely the source of the patient's discomfort. Laboratory work reveals a chronic anemia, sodium of 129 and elevated creatinine consistent with his renal disease. He does not make urine. The patient's hypotension was likely exacerbated by the p.o. OxyIR. He was given 250 cc of IV normal saline solution. The patient was discharged to the [facility] for further care. He will continue Tylenol as needed for discomfort. Narcotics are not likely in the patient's best interest due to his chronic hypotension. If patient's symptoms worsen or he develops fever, he will return to the ED. He should be reevaluated by his PCP this week for reevaluation. Medication Reconcilliation Current Medication List: was personally reviewed by me Blood Pressure Screening Patient's blood pressure: Low blood pressure Blood pressure disposition: Referred to PCP Impression Primary Impression: Compression fracture of thoracic vertebra Additional Impressions: Hypotension of hemodialysis ESRD (end stage renal disease) on dialysis Compression fracture of lumbar vertebra Scribe Attestation The scribe's documentation has been prepared under my direction and personally reviewed by me in its entirety. I confirm that the note above accurately reflects all work, treatment, procedures, and medical decision making performed by me. Departure Information Dispostion Home / Self-Care Referrals Nick Ho (PCP) Forms HOME CARE DOCUMENTATION FORM, IMPORTANT VISIT INFORMATION Patient Instructions My [facility] Additional Instructions Diagnosis: Compression fractures of the thoracic/lumbar spine Tylenol 650 mg every 6 hours as needed for pain. Continue medications as prescribed, blood pressure did dip to 75 systolic in the emergency department. A small amount of IV fluids a dose of Midodrine was given. Follow-up with your primary care physician for reevaluation. Return to the emergency department for worsening of symptoms or any medical concerns. Problem Qualifiers
[2018-01-10] MEDS ORDERED: OXYCODONE HCL IR 5 MG TAB (IMMEDIATE RELEASE) PO STA (11:21)
[2018-01-10 12:02] LABS: BASO % 0.3 %; BASO ABS # 0.01 K/uL (0-0.2); EOS % 3.6 %; EOS ABS # 0.14 K/uL (0-0.5); HEMATOCRIT 37.8 % (42-52); HEMOGLOBIN 12.4 g/dL (14.0-18.0); IG# 0.01 K/uL (0.00-0.02); MEAN CELL VOLUME 98.7 fL (80-100); MEAN CORPUSCULAR HEMOGLOBIN 32.4 pg (25-34); MEAN CORPUSCULAR HGB CONC 32.8 g/dl (32-36); MEAN PLATELET VOLUME 10.4 fL (7.4-10.4); MONO % 14.6 %; MONO ABS # 0.57 K/uL (0.11-0.59); NEUT % 58.2 %; NEUT ABS # 2.28 K/uL (1.4-6.5); PLATELET COUNT 185 K/uL (130-400); RED CELL DISTRIBUTION WIDTH CV 14.8 % (11.5-14.5); WHITE BLOOD COUNT 3.91 K/uL (4.8-10.8)
[2018-01-10] MEDS ORDERED: GABA-1220 PO (12:02)
[2018-01-10] MEDS ORDERED: ACET-1311 PO ×2 (12:02→12:05)
[2018-01-10] MEDS ORDERED: SERT50TA PO (12:03)
[2018-01-10] MEDS ORDERED: LEVO75TA5 PO (12:03)
[2018-01-10] MEDS ORDERED: APIX1TAB PO (12:03)
[2018-01-10] MEDS ORDERED: BISA10SU3 PR (12:03)
[2018-01-10] MEDS ORDERED: B-COCAP2 PO (12:03)
[2018-01-10] MEDS ORDERED: PRMT25 PO (12:03)
[2018-01-10] MEDS ORDERED: POLY335019 PO (12:03)
[2018-01-10] MEDS ORDERED: FINA5TAB PO (12:03)
[2018-01-10] MEDS ORDERED: CALC667C4 PO (12:03)
[2018-01-10] MEDS ORDERED: ONDA4TAB46 PO (12:03)
[2018-01-10] MEDS ORDERED: SUCR1TAB29 PO (12:03)
[2018-01-10] MEDS ORDERED: LATA0.5S OPB (12:03)
[2018-01-10] MEDS ORDERED: LCTX PO (12:03)
[2018-01-10] MEDS ORDERED: ESCI10TA17 PO (12:03)
[2018-01-10] MEDS ORDERED: FLUD0.1T PO (12:03)
[2018-01-10] MEDS ORDERED: ALUMSUS2 PO (12:05)
[2018-01-10] MEDS ORDERED: SODIUM CHLORIDE 0.9% 250ML 250 ML IV STA (12:11)
[2018-01-10] MEDS ORDERED: MIDODRINE 2.5 MG TAB PO STA (12:11)
[2018-01-10 12:29] LABS: ALBUMIN 3.7 gm/dl (3.4-5.0); ALKALINE PHOSPHATASE 182 U/L (45-117); ALT/SGPT 28 U/L (12-78); AST/SGOT 22 U/L (15-37); BLOOD UREA NITROGEN 15 mg/dl (7-18); CALCIUM 8.6 mg/dl (8.5-10.1); CARBON DIOXIDE 30 mmol/L (21-32); CREATININE 2.42 mg/dl (0.60-1.40); GLUCOSE 86 mg/dl (70-99); LIPASE 101 U/L (73-393); POTASSIUM 3.5 mmol/L (3.5-5.1); SODIUM 129 mmol/L (136-145); TOTAL PROTEIN 8.2 gm/dl (6.4-8.2)
--- NOTE | 2018-01-10 12:37 | DIAGNOSTIC IMAGING REPORT ---
L-SPINE MIN 4 VIEWS ROUTINE CLINICAL HISTORY: 62 years-old Male presenting with Low back pain x 2 days. TECHNIQUE: Frontal, bilateral oblique, lateral, and coned in lateral views of the lumbar spine were obtained. COMPARISON: 02/05/2014. FINDINGS: Total left hip arthroplasty. Left femoral dialysis catheter projects over the level of L3. Atherosclerosis. Nonobstructive bowel gas pattern. Moderate stool burden. Multiple suture lines project over the bowel in the left mid abdomen. Cholecystectomy clips may be present. Osteopenia. No evidence of scoliosis. Normal lumbar lordosis. Vertebral body height loss anteriorly at T10, T11, T12, and minimally at L1. These deformities were present in 2013. No new vertebral body compression deformity. Vertebral body alignment preserved. Intervertebral disc heights preserved though vacuum disc phenomenon may be present at L5-S1. No advanced degenerative change in the lumbar spine. No radiographic evidence of osseous neural foraminal narrowing. IMPRESSION: 1. Osteopenia suspected. 2. Stable compression deformities in the thoracolumbar junction unchanged since 2013. 3. No radiographic evidence of acute osseous injury or advanced degenerative change. Electronically signed by: Eliot Doty M.D. 01/10/2018 12:35 PM Dictated Date/Time: 01/10/2018 12:32 PM
[2018-01-10 14:55] VITALS: BP 85/52; PULSE 53; O2SAT 95
== END 2018-01-10 14:56 | disposition home or self-care (01) ==
LOC: EDSEX 10:37 → EDBD 10:37 → C.EDC 10:39
DX: M48.55XD Collapsed vertebra, not elsewhere classified, thoracolumbar region, subsequent encounter for fracture with routine healing (principal); I95.3 Hypotension of hemodialysis; N18.6 End stage renal disease; Z99.2 Dependence on renal dialysis; Z98.84 Bariatric surgery status; Z89.512 Acquired absence of left leg below knee; Z79.01 Long term (current) use of anticoagulants; Z86.73 Personal history of transient ischemic attack (TIA), and cerebral infarction without residual deficits; F32.9 Major depressive disorder, single episode, unspecified; E03.9 Hypothyroidism, unspecified; Z86.39 Personal history of other endocrine, nutritional and metabolic disease

== ENCOUNTER 2018-08-19 13:50 | Inpatient (IN) ==
[2018-08-19 14:43] LABS: Basophils # (auto) 0.03 K/uL (0-0.2); Basophils % (auto) 0.7 %; Eosinophils # (auto) 0.29 K/uL (0-0.5); Eosinophils % (auto) 6.6 %; Hematocrit (blood only) 35.7 % (42-52); Hemoglobin 11.6 g/dL (14.0-18.0); Lymphocytes # (auto) 0.82 K/uL (1.2-3.4); Lymphocytes % (auto) 18.6 %; Mean Corpuscular Hgb Conc 32.5 g/dL (32-36); Mean Corpuscular Volume 100.6 fL (80-100); Monocytes # (auto) 0.57 K/uL (0.11-0.59); Monocytes % (auto) 12.9 %; Neutrophils % (auto) 61.2 %; Platelet Count 175 K/uL (130-400); RDW Coefficient of Variation 14.5 % (11.5-14.5); RDW Standard Deviation 52.4 fL (36.4-46.3); Red Blood Count 3.55 M/uL (4.7-6.1); White Blood Count 4.41 K/uL (4.8-10.8)
[2018-08-19 15:06] LABS: Acetaminophen < 2 ug/ml (10-30); Salicylate < 1.7 mg/dl (2.8-20)
[2018-08-19 15:14] LABS: Albumin Globulin Ratio 0.8 (0.9-2); Albumin Level 3.4 gm/dl (3.4-5.0); BUN Creatinine Ratio 8.6 (10-20); Bilirubin,Total 0.5 mg/dl (0.2-1); Calcium 8.4 mg/dl (8.5-10.1); Creatinine Clr Calc Pharmacy 16.5 ml/min; Est GFR (African American) 12.4; Est GFR (Non-African American) 10.7; Globulin 4.2 gm/dl (2.5-4.0); Total Protein 7.6 gm/dl (6.4-8.2)
--- NOTE | 2018-08-19 19:13 | XRay Report ---
SINGLE VIEW CHEST CLINICAL HISTORY: Change in mental status. FINDINGS: An AP, portable, upright chest radiograph is compared to study dated 04/30/2018 and correla mendez with chest CT dated 01/31/2017. The examination is degraded by portable technique and patient rota tion. The cardiomediastinal silhouette is unremarkable. There are low lung lungs with bibasilar atel ectasis. No airspace consolidation or large pleural effusion is identified. No pneumothorax is seen. The skeletal structures are osteopenic. The bony thorax is grossly intact. Atherosclerotic calcificat ion is noted in the carotid bulbs. IMPRESSION: Low lung volumes with no active disease in the chest. Electronically signed by: Wesley De Jesus M.D. 08/19/2018 7:11 PM
--- NOTE | 2018-08-19 22:07 | Emergency Department Note ---
Entered by Ward Mistry acting as a scribe for History of Present Illness General Chief complaint: Mental Health Evaluation Source: patient Limitations: no limitations History of Present Illness Provider complaint: Suicidal thoughts Onset (ago): week(s) 1 Location: head (Psych/Mental Health) Pain Consistency: + other (worsening) Quality: + other (Suicidal thoughts) Exacerbated By: + other (Frustration with [facility]) Associated symptoms: + denies other symptoms Treatments prior to arrival: none The patient is a 62 year old male who presents to the Emergency Room with concerns over worsening suicidal thoughts. The patient admits that he has had de la garza icidal thoughts intermittently over the past several years. He notes that over the past week the suicidal thoughts have been worsening as he is frustrated with living at [facility]. He states "I just want to get out and go to the mall or go drink a soda and talk with somebody." He adds that he needs someone to sign him out of [facility] if he wants to leave, but he does not know anybody from the area as he is not from here. The patient made a statement to a [facility] staff member that "there are a lot of things around here that I could use to hurt myself." He confirmed this statement upon arrival to the ED and states "I could use a fork or butter knife." The patient adds that these these thoughts of self-harm would be intended to end his life. He states that there was an episode a few years ago when he threatened to shoot himself with a gun. After this episode he stayed at [facility] for 1 week and he notes that this did make him feel better. He had never made an actual suicide attempt. The patient denies any hallucinations. He denies any physical complaints. The patie nt gets dialysis Saturday, Saturday, Saturday. He denies missing any appointments recently. Home Medications Home Medications Medication Instructions Recorded Confirmed Type Lactobacillus acidophilus 1 cap PO BID 04/11/18 08/11/18 History Renal Caps 1 mg PO DAILY 04/11/18 08/11/18 History acetaminophen [Tylenol] 650 mg PO Q6H PRN MDD 3G 04/11/18 08/11/18 History atorvastatin 40 mg PO HS 04/11/18 08/08/18 History calcium acetate 3 tabs PO TIDM 04/11/18 08/11/18 History finasteride [Proscar] 1 mg PO DAILY 04/11/18 08/11/18 History fludrocortisone 0.1 mg PO DAILY 04/11/18 08/11/18 History gabapentin [Neurontin] 400 mg PO DAILY 04/11/18 08/11/18 History latanoprost [Xalatan] 1 drp OPL PM 04/11/18 08/11/18 History levothyroxine [Synthroid] 75 mcg PO DAILY 04/11/18 08/11/18 History midodrine 2.5 mg PO TID 04/11/18 08/11/18 History omeprazole 20 mg PO DAILY 04/11/18 08/11/18 History polyethylene glycol 3350 [Miralax] 17 g PO DAILY 04/11/18 08/11/18 History sucralfate 1 g PO BID 04/11/18 08/11/18 History Cold and Hot Pain Relief 1 patch TOPICAL BID 05/01/18 08/11/18 History Veltassa 8.4 g PO DAILY 05/01/18 08/11/18 History loratadine 10 mg PO DAILY 05/01/18 08/11/18 History midodrine 2.5 mg PO DAILY PRN 05/01/18 08/11/18 History ondansetron 4 mg PO QID PRN 05/01/18 08/08/18 History sertraline 100 mg PO HS 05/01/18 08/11/18 History warfarin 6 mg PO HS 05/01/18 08/11/18 History carbamide peroxide [Debrox] 5 drp OTIC (EAR) DAILY 08/08/18 08/08/18 History polyethylene glycol 3350 [Miralax] 17 g PO DAILY 08/08/18 08/08/18 History Eliquis 5 mg PO BID 08/11/18 08/11/18 History Allergies Allergy/AdvReac Type Severity Reaction Status Date / Time No Known Allergies Allergy ` Verified 07/31/18 11:56 Past Med/Surg History Medical History Callus (Acute) Type 2 diabetes mellitus with diabetic neuropathy (Chronic) Diabetes mellitus with diabetic polyneuropathy (Acute) Acquired claw toe of right foot (Acute) Acquired hallux valgus of right foot (Acute) DVT prophylaxis Hypothyroid (Chronic) SVT (supraventricular tachycardia) Bradycardia with less than 30 beats per minute End stage renal disease (Chronic) DM type 2 (diabetes mellitus, type 2) (Chronic) Morbid obesity (Chronic) Diabetic retinopathy (Chronic) Polyneuropathy in diabetes (Chronic) Depression (Chronic) History of Clostridium difficile colitis (Chronic) History of non-ST elevation myocardial infarction (NSTEMI) (Chronic) CAD (coronary artery disease) (Chronic) "per records- had acute MN in 07/2001 and 03/2010. 40% LAD and 30% circ obstruction noted in records- unknown date of cath. " History of CVA (cerebrovascular accident) (Chronic) Fluency disorder following cerebrovascular accident (Chronic) Vitamin D deficiency (Chronic) Anemia (Chronic) Proteinuria (Chronic) Migraine (Chronic) GI bleed (Acute) Dialysis patient (Chronic) Diabetes (Chronic) Hypotension (Acute) History of GI bleed (Chronic) "EGD 02/08/15- ulceration at gastrojejunal anastomosis from bastric bypass Colonoscopy 02/08/15- internal hemorrhoids" Syncope (Acute) Bacteremia History of methicillin resistant staphylococcus aureus (MRSA) (Chronic) ESRD (end stage renal disease) on dialysis Fall (Acute) Hyperkalemia Peritonitis Arrhythmia Surgical History 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) History of colonoscopy with polypectomy (Chronic) "09/22/2014- adenomatous polyps" History of cholecystectomy (Resolved) H/O gastric bypass (Resolved) H/O total hip arthroplasty (Resolved) History of left below knee amputation (Resolved) Family History Other Cancer Heart disease Hypertension Social History Preferred Language: Spanish Beliefs That Will Affect Care: None Current Living Situation: Personal Care Facility Current Living Situation Comment: [facility] Feels Safe at Home: No Smoking Status: Never smoker Hx Alcohol Use: No Hx Substance Use: No Review of Systems See HPI for pertinent positives & negatives. and A total of 10 systems reviewed and were otherwise negative Physical Exam Vital Signs Vital Signs - 24 hr 08/19/18 13:50 08/19/18 19:35 Temperature 36.5 C Temperature Source Oral Sepsis Recent Fever Within 48 Hours No Sepsis New/Unexplained Change in Mental Status No Sepsis Action Taken by Nursing No Action Required Pulse Rate 55 L Pulse Rate [Right Finger] 49 L Pulse Rhythm [Right Finger] Regular Pulse Strength [Right Finger] Normal Respiratory Rate 20 17 Respiratory Effort / Characteristics Non-Labored Spontaneous Non-Labored Respiratory Depth Normal Normal Respiratory Pattern Regular Regular Blood Pressure 171/74 H Blood Pressure [Right Arm] 116/60 Blood Pressure Mean 106 Blood Pressure Mean [Right Arm] 78 Blood Pressure Position [Right Arm] Sitting Pulse Oximetry 97 94 Oxygen Delivery Method Room Air Room Air GENERAL: Sitting up in bed, alert, chronically ill appearing, non-toxic EYE EXAM: normal conjunctiva. OROPHARYNX: no exudate, no erythema, lips, buccal mucosa, and tongue normal and mucous membranes are moist NECK: supple, no nuchal rigidity, no adenopathy, non-tender LUNGS: Clear to auscultation. Normal chest wall mechanics HEART: no murmurs, S1 normal and S2 normal ABDOMEN: abdomen soft, non-tender, normo-active bowel, sounds, no masses, no rebound or guarding. BACK: Back is symmetrical on inspection and there is no deformity, no midline tenderness, no CVA tenderness. SKIN: no rashes and no bruising UPPER EXTREMITIES: upper extremities are grossly normal. 2 non-working fistula sites present. LOWER EXTREMITIES: No pitting edema. Left knee BKA present. Left groin - Central line in place. NEURO EXAM: Normal sensorium, cranial nerves II-XII grossly intact, normal speech, no gross weakness of arms, no gross weakness of legs. PSYCH: Admits to suicidal thoughts, with plan to use a knife. Course ED COURSE: Vital signs were reviewed and showed hypertension. The patients medical record was reviewed The above diagnostic studies were performed and reviewed. ED treatments and interventions as stated above. 1356: The patient was evaluated in room A8. A complete history and physical examination was performed. 2100: Patient was updated bedside. 2205: Discussed with Jaime and patient was accepted and will be admitted to the medical floor. Medical Decision Making Differential Diagnosis Differential diagnosis: Etiologies such as psychiatric disorder, infection, hypoglycemia, electrolyte abnormalities, cardiac sources, intracerebral event, toxicological process, neurologic disorder, as well as others were entertained. Medical Records Attestation: I reviewed the patient's medical records. Home Medications Current Medication List: was personally reviewed by me Laboratory Data Attestation: I reviewed the patient's lab results. Result diagrams: 08/19/18 14:21 08/19/18 14:21 Lab Results 08/19/18 08/19/18 08/19/18 Range/Units 14:21 14:21 14:21 WBC 4.41 L (4.8-10.8) K/uL RBC 3.55 L (4.7-6.1) M/uL Hgb 11.6 L (14.0-18.0) g/dL Hct 35.7 L (42-52) % MCV 100.6 H (80-100) fL MCH 32.7 (25-34) pg MCHC 32.5 (32-36) g/dL RDW Std Deviation 52.4 H (36.4-46.3) fL RDW Coeff of Nidia 14.5 (11.5-14.5) % Plt Count 175 (130-400) K/uL MPV 10.0 (7.4-10.4) fL Immature Gran % (Auto) 0.0 % Neut % (Auto) 61.2 % Lymph % (Auto) 18.6 % Cook % (Auto) 12.9 % Eos % (Auto) 6.6 % Baso % (Auto) 0.7 % Immature Gran # (Auto) 0.00 (0.00-0.02) K/uL Neut # (Auto) 2.70 (1.4-6.5) K/uL Lymph # (Auto) 0.82 L (1.2-3.4) K/uL Cook # (Auto) 0.57 (0.11-0.59) K/uL Eos # (Auto) 0.29 (0-0.5) K/uL Baso # (Auto) 0.03 (0-0.2) K/uL Sodium 131 L (136-145) mmol/L Potassium 5.0 (3.5-5.1) mmol/L Chloride 96 L (98-107) mmol/L Carbon Dioxide 27 (21-32) mmol/L Anion Gap 8.0 (3-11) BUN 46 H (7-18) mg/dl Creatinine 5.35 H* (0.6-1.4) mg/dl Est Cr Clr Drug Dosing 16.5 ml/min Est GFR ( Amer) 12.4 Est GFR (Non-Af Amer) 10.7 BUN/Creatinine Ratio 8.6 L (10-20) Glucose 147 H (70-99) mg/dl Calcium 8.4 L (8.5-10.1) mg/dl Total Bilirubin 0.5 (0.2-1) mg/dl AST 23 (15-37) U/L ALT 18 (12-78) U/L Alkaline Phosphatase 75 (45-117) U/L Total Protein 7.6 (6.4-8.2) gm/dl Albumin 3.4 (3.4-5.0) gm/dl Globulin 4.2 H (2.5-4.0) gm/dl Albumin/Globulin Ratio 0.8 L (0.9-2) TSH 1.880 (0.300-4.500) uIu/ml Salicylates < 1.7 L (2.8-20) mg/dl Acetaminophen < 2 L (10-30) ug/ml Ethyl Alcohol mg/dL (0-3) mg/dl 08/19/18 Range/Units 14:21 WBC (4.8-10.8) K/uL RBC (4.7-6.1) M/uL Hgb (14.0-18.0) g/dL Hct (42-52) % MCV (80-100) fL MCH (25-34) pg MCHC (32-36) g/dL RDW Std Deviation (36.4-46.3) fL RDW Coeff of Nidia (11.5-14.5) % Plt Count (130-400) K/uL MPV (7.4-10.4) fL Immature Gran % (Auto) % Neut % (Auto) % Lymph % (Auto) % Cook % (Auto) % Eos % (Auto) % Baso % (Auto) % Immature Gran # (Auto) (0.00-0.02) K/uL Neut # (Auto) (1.4-6.5) K/uL Lymph # (Auto) (1.2-3.4) K/uL Cook # (Auto) (0.11-0.59) K/uL Eos # (Auto) (0-0.5) K/uL Baso # (Auto) (0-0.2) K/uL Sodium (136-145) mmol/L Potassium (3.5-5.1) mmol/L Chloride (98-107) mmol/L Carbon Dioxide (21-32) mmol/L Anion Gap (3-11) BUN (7-18) mg/dl Creatinine (0.6-1.4) mg/dl Est Cr Clr Drug Dosing ml/min Est GFR ( Amer) Est GFR (Non-Af Amer) BUN/Creatinine Ratio (10-20) Glucose (70-99) mg/dl Calcium (8.5-10.1) mg/dl Total Bilirubin (0.2-1) mg/dl AST (15-37) U/L ALT (12-78) U/L Alkaline Phosphatase (45-117) U/L Total Protein (6.4-8.2) gm/dl Albumin (3.4-5.0) gm/dl Globulin (2.5-4.0) gm/dl Albumin/Globulin Ratio (0.9-2) TSH (0.300-4.500) uIu/ml Salicylates (2.8-20) mg/dl Acetaminophen (10-30) ug/ml Ethyl Alcohol mg/dL < 3.0 (0-3) mg/dl Imaging Data Attestation: I personally reviewed and interpreted this imaging study as follows: Radiologist's Impression: SINGLE VIEW CHEST CLINICAL HISTORY: Change in mental status. FINDINGS: An AP, portable, upright chest radiograph is compared to study dated 04/30/2018 and correlated with chest CT dated 01/31/2017. The examination is degraded by portable technique and patient rotation. The cardiomediastinal silhouette is unremarkable. There are low lung lungs with bibasilar atelectasis. No airspace consolidation or large pleural effusion is identified. No pneumothorax is seen. The skeletal structures are osteopenic. The bony thorax is grossly intact. Atherosclerotic calcification is noted in the carotid bulbs. IMPRESSION: Low lung volumes with no active disease in the chest. Electronically signed by: Wesley De Jesus M.D. 08/19/2018 7:11 PM ECG Data Attestation: I personally reviewed and interpreted this ECG as follows: Indication: abdominal pain Rate (beats per minute): 47 Rhythm: sinus rhythm Findings: + other (LAD), + 1st degree AV block and + Q waves (Septal); no PVC Comparison ECG Date: from (04/30/2018) Change: no significant change Blood Pressure Blood Pressure Findings: Elevated blood pressure MDM Narrative Patient is a 62-year-old male who presents the ER for suicidal ideations with a plan to cut himself with a knife or a fork. He notes that he has multiple other thoughts to kill himself. He has been having suicidal thoughts which is been worsening over the past week. Patient has not missed any recent dialysis. Labs were obtained and showed no significant leukopenia or anemia. BMP with mild hyponatremia. Creatinine was 5.37 and potassium was unremarkable. He will be needing dialysis tomorrow. No significant transaminitis. TSH was unremarkable. Salicylates Tylenol and alcohol were negative. Chest x-ray was unremarkable. EKG showed a sinus rhythm with a first-degree AV block. Through 2 was signed. Bed search was attempted by [facility] help and there was declined by 25 places due to dialysis. Discussed with our unit and they would be able to take him but they will not have a bed for at least another 24 hours as there is no discharges tomorrow. Following this discussed case with the hospitalist for observation so the patient can get psychiatric treatment while here. Impression & Plan Mood disorder, Suicidal ideation Discharge Plan Visit Data Chief Complaint: Mental Health Evaluation ED Provider: Teto Sullivan Discharge Problem: Mood disorder, Suicidal ideation Patient Disposition: Still a Patient Forms Stand Alone Forms: My [facility] Prescriptions Prescriptions: No Action latanoprost [Xalatan] 0.005 % Drops 1 drp OPL PM RF: 0 atorvastatin 40 mg Tablet 40 mg PO HS RF: 0 acetaminophen [Tylenol] 325 mg Tablet 650 mg PO Q6H MDD 3G PRN (Reason: Fever Or Pain) RF: 0 polyethylene glycol 3350 [Miralax] 17 gram Powder In Packet 17 g PO DAILY RF: 0 sucralfate 1 gram Tablet 1 g PO BID RF: 0 gabapentin [Neurontin] 400 mg Capsule 400 mg PO DAILY RF: 0 calcium acetate 667 mg Tablet 3 tabs PO TIDM RF: 0 levothyroxine [Synthroid] 75 mcg Tablet 75 mcg PO DAILY RF: 0 midodrine 2.5 mg tablet 2.5 mg PO TID RF: 0 Renal Caps 1 mg capsule 1 mg PO DAILY RF: 0 Lactobacillus acidophilus Capsule 1 cap PO BID RF: 0 fludrocortisone 0.1 mg tablet 0.1 mg PO DAILY RF: 0 finasteride [Proscar] 5 mg Tablet 1 mg PO DAILY RF: 0 omeprazole 20 mg Tablet,Delayed Release (Dr/Ec) 20 mg PO DAILY RF: 0 warfarin 4 mg Tablet 6 mg PO HS RF: 0 loratadine 10 mg Tablet 10 mg PO DAILY RF: 0 sertraline 100 mg Tablet 100 mg PO HS RF: 0 Veltassa 8.4 gram Powder In Packet 8.4 g PO DAILY RF: 0 Cold and Hot Pain Relief 5 % Adhesive Patch,Medicated 1 patch TOPICAL BID RF: 0 midodrine 2.5 mg Tablet 2.5 mg PO DAILY PRN (Reason: Hypotension) RF: 0 ondansetron 4 mg Tablet,Disintegrating 4 mg PO QID PRN (Reason: Nausea) RF: 0 polyethylene glycol 3350 [Miralax] 17 gram Powder In Packet 17 g PO DAILY RF: 0 carbamide peroxide [Debrox] 6.5 % Drops 5 drp OTIC (EAR) DAILY RF: 0 Eliquis 5 mg Tablet 5 mg PO BID RF: 0 Referrals Referrals: Dl Zhang [Primary Care Provider] - The scribe's documentation has been prepared under my direction and personally reviewed by me in its entirety. I confirm that the note above accurately reflects all work, treatment, procedures, and medical decision making performed by me.
--- NOTE | 2018-08-19 23:56 | History & Physical Report ---
Date of Service August 19, 2018 Assessment & Plan (1) Suicidal ideation: Suicidal ideation/depression patient has expressed interest in hurting himself-- He will be admitted to the medical service with a psychiatric consult. Continue gabapentin and sertraline. Present on Admission?: Yes (2) ESRD (end stage renal disease) on dialysis: Follows with Dr. Candice Carpio, who will be consulted. Undergoes dialysis Saturday, Saturday and Saturday. Continue calcium acetate and Veltassa Present on Admission?: Yes (3) Type 2 diabetes mellitus with diabetic neuropathy: Current medications not listed. We need to verify with [facility]. Place on Accu-Cheks before meals and at bedtime with NovoLog coverage per scale. Present on Admission?: Yes (4) Depression: As above. Present on Admission?: Yes (5) CAD (coronary artery disease): CAD/hypertension/history of [place]/arrhythmia-- Continue Eliquis. Present on Admission?: Yes (6) History of non-ST elevation myocardial infarction (NSTEMI): See above Present on Admission?: Yes (7) Arrhythmia: As above. Continue Eliquis 5 mg p.o. twice daily. Present on Admission?: Yes (8) Orthostatic hypotension dysautonomic syndrome: Continue Midodrine 2.5 mg p.o. 3 times daily and fludrocortisone 0.1mg daily Present on Admission?: Yes (9) Hypothyroid: Continue levothyroxine 75 mcg daily Present on Admission?: Yes (10) Hyperlipidemia LDL goal <70: Continue atorvastatin 40 mg at bedtime Present on Admission?: Yes (11) BPH (benign prostatic hyperplasia): Continue finasteride. Present on Admission?: Yes (12) GERD (gastroesophageal reflux disease): GERD/history of GI bleed-- Continue omeprazole 20 mg p.o. daily Present on Admission?: Yes (13) History of GI bleed: As above. Present on Admission?: Yes History of Present Illness Chief Complaint: The patient presents to the emergency department with complaint of worsening suicidal thoughts. Primary Care Provider: Dl Zhang The patient is a 62-year-old male resident of [facility], who presented to the emergency department with concerns regarding worsening suicidal thoughts over the past week, in particular with frustrations over having to live in [facility] due to the medical care he requires. A nursing staff member at [facility] reported that the patient has stated there were number of things around there that he could hurt himself with. While in the ED, he reported to staff here that he could use a fork or a butter knife, with intent to end his life. Since there are no beds available for the patient in the mental health unit, the patient will be admitted to the medical service, with consult to Dr. Van from psychiatry. He is a dialysis patient, and gets dialysis on Saturday, Saturday and Saturday, and did receive his last dialysis on Saturday, 08/18 Allergies Allergy/AdvReac Type Severity Reaction Status Date / Time No Known Allergies Allergy ` Verified 07/31/18 11:56 Home Medications Home Medications Medication Instructions Recorded Confirmed Type Lactobacillus acidophilus 1 cap PO BID 04/11/18 08/20/18 History Renal Caps 1 mg PO DAILY 04/11/18 08/20/18 History acetaminophen [Tylenol] 650 mg PO Q6H PRN MDD 3G 04/11/18 08/20/18 History atorvastatin 40 mg PO HS 04/11/18 08/20/18 History calcium acetate 3 tabs PO TIDM 04/11/18 08/20/18 History finasteride [Proscar] 5 mg PO DAILY 04/11/18 08/20/18 History fludrocortisone 0.1 mg PO DAILY 04/11/18 08/20/18 History gabapentin [Neurontin] 400 mg PO DAILY 04/11/18 08/20/18 History latanoprost [Xalatan] 1 drp OPL PM 04/11/18 08/20/18 History levothyroxine [Synthroid] 75 mcg PO DAILY 04/11/18 08/20/18 History midodrine 2.5 mg PO TID 04/11/18 08/20/18 History omeprazole 20 mg PO DAILY 04/11/18 08/20/18 History polyethylene glycol 3350 [Miralax] 17 g PO DAILY 04/11/18 08/20/18 History sucralfate 1 g PO BID 04/11/18 08/20/18 History Cold and Hot Pain Relief 1 patch TOPICAL BID 05/01/18 08/20/18 History Veltassa 8.4 g PO DAILY 05/01/18 08/20/18 History loratadine 10 mg PO DAILY 05/01/18 08/20/18 History midodrine 2.5 mg PO DAILY PRN 05/01/18 08/20/18 History ondansetron 4 mg PO QID PRN 05/01/18 08/20/18 History sertraline 100 mg PO HS 05/01/18 08/20/18 History Eliquis 5 mg PO BID 08/11/18 08/20/18 History Past Med/Surg History Medical History Callus (Acute) Type 2 diabetes mellitus with diabetic neuropathy (Chronic) Diabetes mellitus with diabetic polyneuropathy (Acute) Acquired claw toe of right foot (Acute) Acquired hallux valgus of right foot (Acute) DVT prophylaxis Hypothyroid (Chronic) SVT (supraventricular tachycardia) Bradycardia with less than 30 beats per minute End stage renal disease (Chronic) DM type 2 (diabetes mellitus, type 2) (Chronic) Morbid obesity (Chronic) Diabetic retinopathy (Chronic) Polyneuropathy in diabetes (Chronic) Depression (Chronic) History of Clostridium difficile colitis (Chronic) History of non-ST elevation myocardial infarction (NSTEMI) (Chronic) CAD (coronary artery disease) (Chronic) "per records- had acute [place] in 07/2001 and 03/2010. 40% LAD and 30% circ obstr uction noted in records- unknown date of cath. " History of CVA (cerebrovascular accident) (Chronic) Fluency disorder following cerebrovascular accident (Chronic) Vitamin D deficiency (Chronic) Anemia (Chronic) Proteinuria (Chronic) Migraine (Chronic) GI bleed (Acute) Dialysis patient (Chronic) Diabetes (Chronic) Hypotension (Acute) History of GI bleed (Chronic) "EGD 02/08/15- ulceration at gastrojejunal anastomosis from bastric bypass Colonoscopy 02/08/15- internal hemorrhoids" Syncope (Acute) Bacteremia History of methicillin resistant staphylococcus aureus (MRSA) (Chronic) ESRD (end stage renal disease) on dialysis Fall (Acute) Hyperkalemia Peritonitis Arrhythmia Surgical History 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) History of colonoscopy with polypectomy (Chronic) "09/22/2014- adenomatous polyps" History of cholecystectomy (Resolved) H/O gastric bypass (Resolved) H/O total hip arthroplasty (Resolved) History of left below knee amputation (Resolved) Family History Other Cancer Heart disease Hypertension Social History Preferred Language: Estonian Communication Ability: Effective It Systems Analyst Consultant Required: No Beliefs That Will Affect Care: None Current Living Situation: Long-Term Current Living Situation Comment: [facility] Other Information That Helps Us Care for You: No Feels Safe at Home: No Safety Concerns: Afraid for Self and Afraid for Others in Home Smoking Status: Never smoker Hx Alcohol Use: Yes Hx Substance Use: No Review of Systems The patient denies chest pain, palpitations, shortness of breath, dyspnea on exertion, cough, lower extremity swelling, sore throat, fevers, chills, sweats, weight change, fatigue, nausea, vomiting, diarrhea , constipation, abdominal pain, pelvic pain, blood in urine or stool, dysuria, urinary frequency or urgency, lightheadedness, dizziness, headache, memory loss, loss of consciousness, rash, abnormal bruising or bleeding, imbalance, focal or generalized weakness, numbness or tingling in arms or legs, generalized arthralgias or myalgias, back or neck pain, or night sweats. The review of systems is otherwise negative other than for that already noted above, and at least 10 systems have been reviewed.. Physical Exam Vital Signs (Past 24 Hours): Last Vital Signs Temp 36.5 C 08/19/18 13:50 Pulse 49 L 08/19/18 19:35 Resp 17 08/19/18 19:35 BP 116/60 08/19/18 19:35 Pulse Ox 94 08/19/18 19:35 Physical Exam: The patient is awake, alert and oriented 3, normocephalic and atraumatic, lying in bed and in no acute distress. HEENT--PERRL, EOMI, mucous membranes and oropharynx normal. Neck--supple. No JVD. No bruits. Thyroid normal, trachea midline, no adenopathy. Heart--normal S1 and S2. No murmurs, rubs or gallops. Lungs--clear bilaterally, no respiratory distress, no accessory muscle use. Abdomen--normal bowel sounds and soft. Nontender. Nondistended, no hernias or masses, no organomegaly. Extremities--left BKA. No edema. Dermatologic--normal skin turgor, normal color, no abnormal lymph nodes, no rash. Neurologic--cranial nerves II through XII grossly intact. Rheumatologic--normal range of motion except for LLE BKA Psychiatric--depressed. Results & Data Laboratory Results Laboratory Results WBC 4.41 K/uL (4.8-10.8) L 08/19/18 14:21 RBC 3.55 M/uL (4.7-6.1) L 08/19/18 14:21 Hgb 11.6 g/dL (14.0-18.0) L 08/19/18 14:21 Hct 35.7 % (42-52) L 08/19/18 14:21 MCV 100.6 fL (80-100) H 08/19/18 14:21 MCH 32.7 pg (25-34) 08/19/18 14:21 MCHC 32.5 g/dL (32-36) 08/19/18 14:21 RDW Std Deviation 52.4 fL (36.4-46.3) H 08/19/18 14:21 RDW Coeff of Nidia 14.5 % (11.5-14.5) 08/19/18 14:21 Plt Count 175 K/uL (130-400) 08/19/18 14:21 MPV 10.0 fL (7.4-10.4) 08/19/18 14:21 Immature Gran % (Auto) 0.0 % 08/19/18 14:21 Neut % (Auto) 61.2 % 08/19/18 14:21 Lymph % (Auto) 18.6 % 08/19/18 14:21 [place] % (Auto) 12.9 % 08/19/18 14:21 Eos % (Auto) 6.6 % 08/19/18 14:21 Baso % (Auto) 0.7 % 08/19/18 14:21 Immature Gran # (Auto) 0.00 K/uL (0.00-0.02) 08/19/18 14:21 Neut # (Auto) 2.70 K/uL (1.4-6.5) 08/19/18 14:21 Lymph # (Auto) 0.82 K/uL (1.2-3.4) L 08/19/18 14:21 [place] # (Auto) 0.57 K/uL (0.11-0.59) 08/19/18 14:21 Eos # (Auto) 0.29 K/uL (0-0.5) 08/19/18 14:21 Baso # (Auto) 0.03 K/uL (0-0.2) 08/19/18 14:21 Sodium 131 mmol/L (136-145) L 08/19/18 14:21 Potassium 5.0 mmol/L (3.5-5.1) 08/19/18 14:21 Chloride 96 mmol/L (98-107) L 08/19/18 14:21 Carbon Dioxide 27 mmol/L (21-32) 08/19/18 14:21 Anion Gap 8.0 (3-11) 08/19/18 14:21 BUN 46 mg/dl (7-18) H 08/19/18 14:21 Creatinine 5.35 mg/dl (0.6-1.4) H* 08/19/18 14:21 Est Cr Clr Drug Dosing 16.5 ml/min 08/19/18 14:21 Est GFR ( Amer) 12.4 08/19/18 14:21 Est GFR (Non-Af Amer) 10.7 08/19/18 14:21 BUN/Creatinine Ratio 8.6 (10-20) L 08/19/18 14:21 Glucose 147 mg/dl (70-99) H 08/19/18 14:21 Calcium 8.4 mg/dl (8.5-10.1) L 08/19/18 14:21 Total Bilirubin 0.5 mg/dl (0.2-1) 08/19/18 14:21 AST 23 U/L (15-37) 08/19/18 14:21 ALT 18 U/L (12-78) 08/19/18 14:21 Alkaline Phosphatase 75 U/L (45-117) 08/19/18 14:21 Total Protein 7.6 gm/dl (6.4-8.2) 08/19/18 14:21 Albumin 3.4 gm/dl (3.4-5.0) 08/19/18 14:21 Globulin 4.2 gm/dl (2.5-4.0) H 08/19/18 14:21 Albumin/Globulin Ratio 0.8 (0.9-2) L 08/19/18 14:21 TSH 1.880 uIu/ml (0.300-4.500) 08/19/18 14:21 Salicylates < 1.7 mg/dl (2.8-20) L 08/19/18 14:21 Acetaminophen < 2 ug/ml (10-30) L 08/19/18 14:21 Ethyl Alcohol mg/dL < 3.0 mg/dl (0-3) 08/19/18 14:21 Diagnostic Findings [place], [place] [phone] XRay Report Patient: ASHLEY CANTU Date: 08/19/18 MR#: [id number]: [address] Acct ID:[id number]: [facility]: 1955[facility] Zip[facility] [place] [address] Age: 62Location: ED Sex: M Room/Bed: Att Phy: Diagnosis: MENTAL HEALTH EVAL Cel[place] Phy: Dl Zhang M.D.Service Date: 08/19/18 Fam Phy: Interpreting Phy: Wesley De Jesus MD Admit Phy: Ordering Phy: Teto Sullivan, cc: ~ SINGLE VIEW CHEST CLINICAL HISTORY: Change in mental status. FINDINGS: An AP, portable, upright chest radiograph is compared to study dated 04/30/2018 and correlated with chest CT dated 01/31/2017. The examination is degraded by portable technique and patient rotation. The cardiomediastinal silhouette is unremarkable. There are low lung lungs with bibasilar atelectasis. No airspace consolidation or large pleural effusion is identified. No pneumothorax is seen. The skeletal structures are osteopenic. The bony thorax is grossly intact. Atherosclerotic calcification is noted in the carotid bulbs. IMPRESSION: Low lung volumes with no active disease in the chest. Electronically signed by: Wesley De Jesus M.D. 08/19/2018 7:11 PM Dictated: 08/19/181909 Transcribed: 08/19/181909 Code Status & VTE Plan Code Status Full code VTE Prophylaxis Plan VTE Prophylaxis will be ordered: Yes (1) Depression Depression Type: unspecified Qualified Code(s): F32.9 - Major depressive disorder, single episode, unspecified (2) CAD (coronary artery disease) Coronary Disease-Associated Artery/Lesion type: unspecified vessel or lesion type [place] vs. transplanted heart: [place] heart Associated angina: without angina Qualified Code(s): I25.10 - Atherosclerotic heart disease of [place] coronary artery without angina pectoris (3) Hypothyroid Hypothyroidism type: acquired Qualified Code(s): E03.9 - Hypothyroidism, unspecified
[2018-08-20] MEDS ORDERED: GLUCAGON FOR INJ 1 MG VIAL SQ PRN (00:56)
[2018-08-20] MEDS ORDERED: GLUCOSE 40% GEL 15 GM TUBE PO PRN (00:56)
[2018-08-20] MEDS ORDERED: DEXTROSE 50% 50 ML SYRINGE IV PRN (00:56)
[2018-08-20] MEDS ORDERED: GLUCOSE 10 TABS/TUBE PO PRN (00:56)
[2018-08-20] MEDS ORDERED: ACETAMINOPHEN 325 MG TAB PO PRN ×2 (00:56)
[2018-08-20] MEDS ORDERED: CARBOHYDRATES FOR HYPOGLYCEMIA PO PRN (00:56)
[2018-08-20] MEDS ORDERED: PATIROMER CALCIUM SORBITEX 8.4 GM PACK PO SCH (04:00)
[2018-08-20] MEDS ORDERED: FLUDROCORTISONE ACETATE 0.1 MG TAB PO SCH (04:00)
[2018-08-20] MEDS: MIDODRINE HCL 2.5 MG TAB PO SCH ×3 (04:27→21:04)
[2018-08-20] MEDS: LEVOTHYROXINE SODIUM 75 MCG TABLET PO SCH (06:18)
[2018-08-20 06:51] LABS: Hematocrit (blood only) 36.6 % (42-52); Hemoglobin 11.8 g/dL (14.0-18.0); Mean Corpuscular Hgb Conc 32.2 g/dL (32-36); Mean Platelet Volume 10.2 fL (7.4-10.4); Platelet Count 173 K/uL (130-400); RDW Coefficient of Variation 14.4 % (11.5-14.5); Red Blood Count 3.66 M/uL (4.7-6.1); White Blood Count 4.01 K/uL (4.8-10.8)
[2018-08-20 07:25] LABS: Estimated Average Glucose 117 mg/dl; Hemoglobin A1C 5.7 % (4.5-5.6)
[2018-08-20 07:35] LABS: Albumin Level 3.4 gm/dl (3.4-5.0); Bilirubin Direct 0.2 mg/dl (0-0.2); Bilirubin,Total 0.4 mg/dl (0.2-1); Creatinine Clr Calc Pharmacy 14.2 ml/min; Est GFR (African American) 10.5; Est GFR (Non-African American) 9.1; Total Protein 7.2 gm/dl (6.4-8.2)
[2018-08-20] MEDS ORDERED: SODIUM CHLORIDE 0.9% 1000ML 1,000 ML IV PRN (07:39)
[2018-08-20] MEDS ORDERED: HEPARIN SOD (PORCINE) 1000 UNIT/ML 10 ML VIAL IV ONE (07:39)
[2018-08-20] MEDS: LORATADINE 10 MG TAB PO SCH (08:28)
[2018-08-20] MEDS: CALCIUM ACETATE 667 MG CAP PO SCH ×3 (08:28→21:05)
[2018-08-20] MEDS: APIXABAN 5 MG TABLET PO SCH ×2 (08:28→21:03)
[2018-08-20] MEDS: SUCRALFATE 1 GM TAB PO SCH ×2 (08:28→21:07)
[2018-08-20] MEDS: FINASTERIDE 5 MG TAB PO SCH (08:28)
[2018-08-20] MEDS: POLYETHYLENE (MIRALAX) 17 GM PACK PO SCH (08:28)
[2018-08-20] MEDS: NEPHROCAPS PO SCH (08:28)
[2018-08-20] MEDS: GABAPENTIN 400 MG CAP PO SCH (08:28)
[2018-08-20] MEDS: PANTOprazole 40 MG TAB PO SCH (08:28)
[2018-08-20] MEDS: INSULIN ASPART 100 UNITS/ML 3 ML PEN SC SCH ×4 (08:35→22:17)
[2018-08-20] MEDS ORDERED: FINASTERIDE 5 MG TAB PO SCH (09:00)
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
--- NOTE | 2018-08-20 15:00 | Hospitalist Progress Note ---
Date of Service August 20, 2018 Assessment & Plan (1) Suicidal ideation: No further suicidal ideation. Psych consulted, initially 302'd but they feel he can now be discharged and monitored at [facility]. Continue gabapentin and increase sertraline per psych (2) ESRD (end stage renal disease) on dialysis: Follows with Dr. Candice Carpio, who will be consulted. Undergoes dialysis Saturday, Saturday and Saturday - will have dialysis later this afternoon Continue calcium acetate and Veltassa (3) Type 2 diabetes mellitus with diabetic neuropathy: Current medications not listed. We need to verify with [facility]. Place on Accu-Cheks before meals and at bedtime with NovoLog coverage per scale. (4) Depression: As above. (5) CAD (coronary artery disease): CAD/hypertension/history of RI/arrhythmia-- Continue Eliquis. (6) History of non-ST elevation myocardial infarction (NSTEMI): See above (7) Arrhythmia: As above. Continue Eliquis 5 mg p.o. twice daily. (8) Orthostatic hypotension dysautonomic syndrome: Continue Midodrine 2.5 mg p.o. 3 times daily and fludrocortisone 0.1mg daily (9) Hypothyroid: Continue levothyroxine 75 mcg daily (10) Hyperlipidemia LDL goal <70: Continue atorvastatin 40 mg at bedtime (11) BPH (benign prostatic hyperplasia): Continue finasteride. (12) GERD (gastroesophageal reflux disease): GERD/history of GI bleed-- Continue omeprazole 20 mg p.o. daily (13) History of GI bleed: As above. Dispo: patient will need dialysis this afternoon, hopefully will be able to discharge to [facility] tomorrow Subjective Mr. Guthrie is pleasant and denies any suicidal thoughts today. He would like to return to [facility] with whatever restrictions to keep him safe they deem necessary. He has no other complaints Review of Systems All systems reviewed & are unremarkable except as noted in HPI & below Physical Exam Vital Signs (Past 24 Hours): Last Vital Signs Temp 36.4 C L 08/20/18 07:10 Pulse 52 L 08/20/18 07:10 Resp 20 08/20/18 07:10 BP 100/61 08/20/18 07:10 Pulse Ox 94 08/20/18 07:10 Physical Exam: General: no distress Eyes: normal inspection, PERLL Respiratory: chest non tender, clear to auscultation, normal breath sounds, no respiratory distress, no accessory muscle use Cardiac: regular rate and rhythm, no rub or gallop, no murmur, no edema, no jvd GI/: active bowel sounds, no abd pain or tenderness, soft, non distended Extremities: normal range of motion, normal strength, non tender, left bka Neuro/Psych: alert and oriented x 3, normal mood and affect Skin: normal color, dry Results & Data Laboratory Results Abnormal lab results 08/19/18 08/19/18 08/20/18 Range/Units 14:21 14:21 06:30 WBC (4.8-10.8) K/uL RBC (4.7-6.1) M/uL Hgb (14.0-18.0) g/dL Hct (42-52) % RDW Std Deviation (36.4-46.3) fL Sodium 131 L (136-145) mmol/L Chloride 96 L (98-107) mmol/L BUN 46 H (7-18) mg/dl Creatinine 5.35 H* (0.6-1.4) mg/dl BUN/Creatinine Ratio 8.6 L (10-20) Glucose 147 H (70-99) mg/dl POC Glucose (70-99) Hemoglobin A1c 5.7 H (4.5-5.6) % Calcium 8.4 L (8.5-10.1) mg/dl Globulin 4.2 H (2.5-4.0) gm/dl Albumin/Globulin Ratio 0.8 L (0.9-2) Salicylates < 1.7 L (2.8-20) mg/dl Acetaminophen < 2 L (10-30) ug/ml 08/20/18 08/20/18 08/20/18 Range/Units 06:30 06:30 11:48 WBC 4.01 L (4.8-10.8) K/uL RBC 3.66 L (4.7-6.1) M/uL Hgb 11.8 L (14.0-18.0) g/dL Hct 36.6 L (42-52) % RDW Std Deviation 52.0 H (36.4-46.3) fL Sodium (136-145) mmol/L Chloride (98-107) mmol/L BUN (7-18) mg/dl Creatinine 6.14 H* D (0.6-1.4) mg/dl BUN/Creatinine Ratio (10-20) Glucose (70-99) mg/dl POC Glucose 158 H (70-99) Hemoglobin A1c (4.5-5.6) % Calcium (8.5-10.1) mg/dl Globulin (2.5-4.0) gm/dl Albumin/Globulin Ratio (0.9-2) Salicylates (2.8-20) mg/dl Acetaminophen (10-30) ug/ml (1) Depression Depression Type: unspecified Qualified Code(s): F32.9 - Major depressive disorder, single episode, unspecified (2) CAD (coronary artery disease) Coronary Disease-Associated Artery/Lesion type: unspecified vessel or lesion type [place] vs. transplanted heart: [place] heart Associated angina: without angina Qualified Code(s): I25.10 - Atherosclerotic heart disease of [place] coronary artery without angina pectoris (3) Hypothyroid Hypothyroidism type: acquired Qualified Code(s): E03.9 - Hypothyroidism, unspecified
[2018-08-20] MEDS: HEPARIN SOD (PORCINE) 1000 UNIT/ML 10 ML VIAL IV SCH ×3 (16:40→18:40)
[2018-08-20] MEDS ORDERED: LATANOPROST 0.005% OP SOLN 2.5 ML BTL OPL SCH (21:00)
[2018-08-20] MEDS ORDERED: ATORVASTATIN 40 MG TAB PO SCH (21:00)
[2018-08-20] MEDS ORDERED: SERTRALINE HCL 100 MG TABLET PO SCH ×2 (21:00)
--- NOTE | 2018-08-20 22:01 | Nephrology Consultation ---
Date of Consultation August 20, 2018 Assessment & Plan (1) End stage renal disease: today is routine hd day and will do routine tx today4.25 hrs ; no epo needed; miniheparin on HD up to 2.5L UF next HD tentatively for 08/22 bp, HR on eval, hgb, electrolytes acceptable; follow q48-72 hrs Present on Admission?: Yes History of Present Illness Reason for Consultation: ESRD on HD Requesting Physician: Dr Washburn Attending Physician: Dk Washburn MD History of Present Illness 62 y/o M w/ ESRD on [facility] via L groin tunnelled catheter admitted last evening after expressing suicidal ideations at his facility. PMH includes CAD s/p nstemi, s/p pacer fall 2017 DM, PVD s/p R BKA and TDC dependent as above, chronic hypotension requiring midodrine and fludrocortisone, stroke, remote gastric bypass. He has shown more sx of depression over the past week and asked for / commented on ways at his facility that he could harm himself and end his life. Psychiatry is following. No missed txs recently Allergies Allergy/AdvReac Type Severity Reaction Status Date / Time No Known Allergies Allergy ` Verified 07/31/18 11:56 Home Medications Home Medications Medication Instructions Recorded Confirmed Type Lactobacillus acidophilus 1 cap PO BID 04/11/18 08/20/18 History Renal Caps 1 mg PO DAILY 04/11/18 08/20/18 History acetaminophen [Tylenol] 650 mg PO Q6H PRN MDD 3G 04/11/18 08/20/18 History atorvastatin 40 mg PO HS 04/11/18 08/20/18 History calcium acetate 3 tabs PO TIDM 04/11/18 08/20/18 History finasteride [Proscar] 5 mg PO DAILY 04/11/18 08/20/18 History fludrocortisone 0.1 mg PO DAILY 04/11/18 08/20/18 History gabapentin [Neurontin] 400 mg PO DAILY 04/11/18 08/20/18 History latanoprost [Xalatan] 1 drp OPL PM 04/11/18 08/20/18 History levothyroxine [Synthroid] 75 mcg PO DAILY 04/11/18 08/20/18 History midodrine 2.5 mg PO TID 04/11/18 08/20/18 History omeprazole 20 mg PO DAILY 04/11/18 08/20/18 History polyethylene glycol 3350 [Miralax] 17 g PO DAILY 04/11/18 08/20/18 History sucralfate 1 g PO BID 04/11/18 08/20/18 History Cold and Hot Pain Relief 1 patch TOPICAL BID 05/01/18 08/20/18 History Veltassa 8.4 g PO DAILY 05/01/18 08/20/18 History loratadine 10 mg PO DAILY 05/01/18 08/20/18 History midodrine 2.5 mg PO DAILY PRN 05/01/18 08/20/18 History ondansetron 4 mg PO QID PRN 05/01/18 08/20/18 History sertraline 100 mg PO HS 05/01/18 08/20/18 History Eliquis 5 mg PO BID 08/11/18 08/20/18 History Patient History Medical History Callus (Acute) Type 2 diabetes mellitus with diabetic neuropathy (Chronic) Diabetes mellitus with diabetic polyneuropathy (Acute) Acquired claw toe of right foot (Acute) Acquired hallux valgus of right foot (Acute) DVT prophylaxis Hypothyroid (Chronic) SVT (supraventricular tachycardia) Bradycardia with less than 30 beats per minute End stage renal disease (Chronic) DM type 2 (diabetes mellitus, type 2) (Chronic) Morbid obesity (Chronic) Diabetic retinopathy (Chronic) Polyneuropathy in diabetes (Chronic) Depression (Chronic) History of Clostridium difficile colitis (Chronic) History of non-ST elevation myocardial infarction (NSTEMI) (Chronic) CAD (coronary artery disease) (Chronic) "per records- had acute CT in 07/2001 and 03/2010. 40% LAD and 30% circ obstruction noted in records- unknown date of cath. " History of CVA (cerebrovascular accident) (Chronic) Fluency disorder following cerebrovascular accident (Chronic) Vitamin D deficiency (Chronic) Anemia (Chronic) Proteinuria (Chronic) Migraine (Chronic) GI bleed (Acute) Dialysis patient (Chronic) Diabetes (Chronic) Hypotension (Acute) History of GI bleed (Chronic) "EGD 02/08/15- ulceration at gastrojejunal anastomosis from bastric bypass Colonoscopy 02/08/15- internal hemorrhoids" Syncope (Acute) Bacteremia History of methicillin resistant staphylococcus aureus (MRSA) (Chronic) ESRD (end stage renal disease) on dialysis Fall (Acute) Hyperkalemia Peritonitis Arrhythmia Surgical History 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) History of colonoscopy with polypectomy (Chronic) "09/22/2014- adenomatous polyps" History of cholecystectomy (Resolved) H/O gastric bypass (Resolved) H/O total hip arthroplasty (Resolved) History of left below knee amputation (Resolved) Family History Other Cancer Heart disease Hypertension Social History Communication Ability: Effective Beliefs That Will Affect Care: None Current Living Situation: [facility] Current Living Situation Comment: [facility] Other Information That Helps Us Care for You: No Feels Safe at Home: No Safety Concerns: Afraid for Self and Afraid for Others in Home Smoking Status: Never smoker Hx Alcohol Use: Yes Hx Substance Use: No Review of Systems Constitutional: + fatigue; no fever Eyes: no worsening vision Ear, Nose, Mouth, Throat: no dry mouth Respiratory: no cough and no dyspnea Cardiovascular: no chest pain, no palpitations and no edema Gastrointestinal: + diarrhea/loose stools (chronic stable/intermittent); no abdominal pain and no vomiting anuric Musculoskeletal: + back pain (worse especially at outpt dialysis); no swelling Integumentary: no rash and no sores Neurologic: no loss of sensation and no confusion Psychiatric: + behavioral changes, + depression, + hopelessness and + suicidal ideation Endocrine: + fatigue Hematologic / Lymphatic: + easy bleeding Physical Exam Vital Signs (Past 24 Hours): Last Vital Signs Temp 36.9 C 08/20/18 20:24 Pulse 53 L 08/20/18 20:24 Resp 17 08/20/18 20:14 BP 102/61 08/20/18 20:24 Pulse Ox 96 08/20/18 20:14 Constitutional: well developed chronically ill on ra joking w/ sitter Eyes: eomi; amblyopia ENMT: Ears: no external ear abnormality Nose: no external nose abnormality Mouth: + dry oral mucous membranes Neck: no nuchal rigidity Respiratory: normal respiratory effort Auscultation: + diminished lung sounds Cardiovascular: Rate/Rhythm: regular rate and regular rhythm Extremities: no edema Gastrointestinal (Abdomen): Inspection/Auscultation: normal bowel sounds Percussion/Palpation: abdomen soft; abdomen nontender Musculoskeletal: Extremities: strength 5/5 throughout Skin: no rashes, warm and dry Neurologic: sultana, fluent speech, no tremor Psychiatric: A+Ox3, euthymic affect Insight: good insight Judgement: good judgement Results & Data Laboratory Results reviewed
[2018-08-21] MEDS: MIDODRINE HCL 2.5 MG TAB PO SCH ×2 (04:00→12:23)
[2018-08-21] MEDS: LEVOTHYROXINE SODIUM 75 MCG TABLET PO SCH (05:21)
[2018-08-21] MEDS ORDERED: FLUDROCORTISONE ACETATE 0.1 MG TAB PO SCH (08:00)
[2018-08-21] MEDS ORDERED: PATIROMER CALCIUM SORBITEX 8.4 GM PACK PO SCH (08:00)
[2018-08-21] MEDS: PANTOprazole 40 MG TAB PO SCH (08:27)
[2018-08-21] MEDS: LORATADINE 10 MG TAB PO SCH (08:27)
[2018-08-21] MEDS: SUCRALFATE 1 GM TAB PO SCH (08:27)
[2018-08-21] MEDS: NEPHROCAPS PO SCH (08:27)
[2018-08-21] MEDS: GABAPENTIN 400 MG CAP PO SCH (08:27)
[2018-08-21] MEDS: CALCIUM ACETATE 667 MG CAP PO SCH ×2 (08:27→12:23)
[2018-08-21] MEDS: APIXABAN 5 MG TABLET PO SCH (08:28)
[2018-08-21] MEDS: POLYETHYLENE (MIRALAX) 17 GM PACK PO SCH (08:28)
[2018-08-21] MEDS: FINASTERIDE 5 MG TAB PO SCH (08:29)
[2018-08-21] MEDS: INSULIN ASPART 100 UNITS/ML 3 ML PEN SC SCH ×2 (08:33→12:24)
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
[2018-08-21 15:37] VITALS: BP 144/64; PULSE 66; TEMP 97.3; O2SAT 90
== END 2018-08-21 17:00 | DRG 881 ==
LOC: ED 13:50 → 4W 23:55

== ENCOUNTER 2019-02-11 09:13 | Observation (INO) ==
[2019-02-11 09:32] LABS: Basophils # (auto) 0.02 K/uL (0-0.2); Basophils % (auto) 0.5 %; Eosinophils # (auto) 0.21 K/uL (0-0.5); Eosinophils % (auto) 4.8 %; Hematocrit (blood only) 31.4 % (42-52); Hemoglobin 10.3 g/dL (14.0-18.0); Immature Granulocytes # (auto) 0.01 K/uL (0.00-0.02); Immature Granulocytes % (auto) 0.2 %; Lymphocytes # (auto) 0.56 K/uL (1.2-3.4); Lymphocytes % (auto) 12.8 %; Mean Corpuscular Hemoglobin 32.4 pg (25-34); Mean Corpuscular Hgb Conc 32.8 g/dL (32-36); Mean Corpuscular Volume 98.7 fL (80-100); Mean Platelet Volume 10.2 fL (7.4-10.4); Monocytes # (auto) 0.52 K/uL (0.11-0.59); Monocytes % (auto) 11.8 %; Neutrophils # (auto) 3.07 K/uL (1.4-6.5); Neutrophils % (auto) 69.9 %; Platelet Count 220 K/uL (130-400); RDW Coefficient of Variation 14.4 % (11.5-14.5); Red Blood Count 3.18 M/uL (4.7-6.1); White Blood Count 4.39 K/uL (4.8-10.8)
[2019-02-11] MEDS ORDERED: NITROGLYCERIN SL 0.4 MG/TAB TAB SL STA (09:44)
[2019-02-11 09:48] LABS: Alanine Aminotransferase 19 U/L (12-78); Albumin Level 3.4 gm/dl (3.4-5.0); Aspartate Aminotransferase 17 U/L (15-37); BUN Creatinine Ratio 6.4 (10-20); Blood Urea Nitrogen 16 mg/dl (7-18); Calcium 8.6 mg/dl (8.5-10.1); Carbon Dioxide 29 mmol/L (21-32); Chloride 95 mmol/L (98-107); Creatinine Clr Calc Pharmacy 35.9 ml/min; Est GFR (African American) 31.9; Est GFR (Non-African American) 27.5; Glucose 92 mg/dl (70-99); Lipase 109 U/L (73-393); Potassium 3.4 mmol/L (3.5-5.1); Sodium 131 mmol/L (136-145)
[2019-02-11 09:53] LABS: Albumin Globulin Ratio 0.8 (0.9-2); Alkaline Phosphatase 91 U/L (45-117); Bilirubin,Total 0.5 mg/dl (0.2-1); Globulin 4.2 gm/dl (2.5-4.0); Total Protein 7.6 gm/dl (6.4-8.2); Troponin I < 0.015 ng/ml (0-0.045)
--- NOTE | 2019-02-11 10:06 | XRay Report ---
XR chest 1V portable CLINICAL HISTORY: Chest Pain dyspnea COMPARISON STUDY: 08/19/2018 FINDINGS: Mild stable cardiomegaly. Lungs are considered clear. Poor inspiratory volumes. IMPRESSION: No acute process. The above report was generated using voice recognition software. It may contain grammatical, syntax or spelling errors. Electronically signed by: Parker Arthur M.D. 02/11/2019 10:05 AM
--- NOTE | 2019-02-11 11:09 | History & Physical Report ---
Date of Service February 11, 2019 Assessment & Plan (1) Chest pain, precordial: Patient with known CAD s/p NSTEMI in the past. Patient developed acute chest pain during HD. Presently CP free, relieved with Nitro. Troponin x 1 negative[address]KG with nonspecific ST changes -Observation to medical floor with telemetry monitorin -Trend cardiac enzymes x 3 sets -2D echo in the AM -Patient may need stress testing in AM Present on Admission?: Yes (2) Back pain: Back pain is reproducible with palpation across shoulder blades. Also positional. Suspect musculoskeletal origin. -Lidoderm patch -Heating pad -Tylenol PRN -Continue to monitor Present on Admission?: Yes (3) End stage renal disease: Patient ESRD on HD q M/W/. Electrolytes and metabolic parameters acceptable at this time. Patient does not appear to be volume overloaded. He is anuric -Continue Phoslo and Renal caps -Continue Veltessa -Labs in AM -Renal diet -Do not anticipate that patient will need HD during this hospital stay as he is Observation for CP/rule out ACS which is typically a very brief stay. If labs or volume status become less than optimal will consult Nephrology and change to inpatient status so patient can be dialyzed. Present on Admission?: Yes (4) Diabetes mellitus with diabetic polyneuropathy: Blood sugar presently 92. AIC = 5.7 in September 2018 -ISS coverage -CC diet as tolerated Present on Admission?: Yes (5) CAD (coronary artery disease): Rule out ACS as above -Continue statin Present on Admission?: Yes (6) GERD (gastroesophageal reflux disease): Chronic. Well controlled at present -Continue Sucralfate 1g PO BID -Continue Omeprazole 20mg po daily Present on Admission?: Yes (7) BPH (benign prostatic hyperplasia): Patient is anuric. On Proscar -Continue Proscar at home dose Present on Admission?: Yes (8) Orthostatic hypotension dysautonomic syndrome: Blood pressure stable at present -Continue Fludrocortisone 0.1mg po daily -Continue Midodrine Present on Admission?: Yes (9) Hyperlipidemia LDL goal <70: Chronic -Continue Atorvastatin 40mg po qHS Present on Admission?: Yes (10) Hypothyroid: Chronic -Continue Synthroid 75mcg po daily Present on Admission?: Yes (11) Morbid obesity: Noted -Encourage lifestyle modifications to include healthy diet and increased exercise Present on Admission?: Yes (12) Depression: Chronic. Well controlled -Continue Sertraline Present on Admission?: Yes (13) Anemia: H/H near baseline. No active bleeding -Continue to monitor CBC (14) SVT (supraventricular tachycardia): Patient presently in SR with first degree AV block. He states that he was worked up for a possible pacemaker in the past. Due to his HD access they were unable to access via anterior chest wall and due to vascular anatomy they were unable to place device via groin access. He states that he will not have a pacer unless absolutely necessary. -Continue Eliquis F/E/N - heplock. Monitor electrolytes and correct as needed. CC/Renal diet as tolerate Ppx - Eliquis Code - Full Dispo - Obs to medical floor with telemetry Present on Admission?: Yes History of Present Illness Chief Complaint: chest pain Primary Care Provider: Nick Ho Andrew Guthrie is a 63yo C male with multiple medical problems to include ESRD on HD q M/W/F (follows with [facility], receives HD at [facility]), CAD s/p [place], HTN, HLP, DM, arrhythmia ?SVT vs AF. Patient was receiving HD this AM when he developed severe pain in his back, across his shoulders, 10/10 in severity. Pain described as aching, improved with positional changes. Patient then developed right sided chest discomfort, 8/10 in severity, intermittent. He was given Nitro with relief in pain. Presently 0/10 in back and chest. He has never had this pain before. States that his HD session went well, no complications, blood pressure remained stable. He received only 3/4 of his treatment. ER Course: Nitro Allergies Allergy/AdvReac Type Severity Reaction Status Date / Time No Known Allergies Allergy ` Verified 07/31/18 11:56 Home Medications Home Medications Medication Instructions Recorded Confirmed Type Lactobacillus acidophilus 1 cap PO BID 04/11/18 02/11/19 History Renal Caps 1 mg PO DAILY 04/11/18 02/11/19 History atorvastatin 40 mg PO HS 04/11/18 02/11/19 History calcium acetate 3 tabs PO TIDM 04/11/18 02/11/19 History finasteride [Proscar] 5 mg PO DAILY 04/11/18 02/11/19 History fludrocortisone 0.1 mg PO MOWEFR 04/11/18 02/11/19 History gabapentin [Neurontin] 400 mg PO DAILY 04/11/18 02/11/19 History latanoprost [Xalatan] 1 drp OPL PM 04/11/18 02/11/19 History levothyroxine [Synthroid] 75 mcg PO DAILY 04/11/18 02/11/19 History midodrine 2.5 mg PO TID 04/11/18 02/11/19 History omeprazole 20 mg PO DAILY 04/11/18 02/11/19 History polyethylene glycol 3350 [Miralax] 17 g PO DAILY 04/11/18 02/11/19 History sucralfate 1 g PO BID 04/11/18 02/11/19 History Cold and Hot Pain Relief 1 patch TOPICAL BID 05/01/18 02/11/19 History Veltassa 16.8 g PO DAILY 05/01/18 02/11/19 History loratadine 10 mg PO HS 05/01/18 02/11/19 History ondansetron 4 mg PO QID PRN 05/01/18 02/11/19 History Eliquis 5 mg PO BID 08/11/18 02/11/19 History sertraline 150 mg PO HS #30 tab 08/21/18 02/11/19 Rx Past Med/Surg History Medical History Callus (Acute) Diabetes mellitus with diabetic polyneuropathy (Acute) Acquired claw toe of right foot (Acute) Acquired hallux valgus of right foot (Acute) Hypothyroid (Chronic) SVT (supraventricular tachycardia) Bradycardia with less than 30 beats per minute End stage renal disease (Chronic) Morbid obesity (Chronic) Diabetic retinopathy (Chronic) Depression (Chronic) History of Clostridium difficile colitis (Chronic) History of non-ST elevation myocardial infarction (NSTEMI) (Chronic) CAD (coronary artery disease) (Chronic) "per records- had acute [place] in 07/2001 and 03/2010. 40% LAD and 30% circ obstruction noted in records- unknown date of cath. 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) History of colonoscopy with polypectomy (Chronic) "09/22/2014- adenomatous polyps" History of cholecystectomy (Resolved) H/O gastric bypass (Resolved) H/O total hip arthroplasty (Resolved) History of left below knee amputation (Resolved) Family History Other Cancer Heart disease Hypertension Social History Preferred Language: Kinyar[place] Communication Ability: Effective Communication Ability Comment: some vision impairment, wears glasses Screen Maker Required: No Beliefs That Will Affect Care: None Current Living Situation: [facility] Current Living Situation Comment: [facility] Other Information That Helps Us Care for You: No Feels Safe at Home: Yes Safety Concerns: Feels Safe At This Time Smoking Status: Never smoker Do You Dip or Chew Tobacco: No ; Second Hand Exposure: No ; Tobacco Cessation Education Requested by Patient: No Hx Alcohol Use: Yes Hx Substance Use: No Review of Systems Review of Systems: All systems reviewed & are unremarkable except as noted in HPI & below All other systems negative. Patient denies palpitations, dizziness, SOB, fever, chills, abdominal pain, nausea, vomiting, diarrhea Physical Exam Physical Exam: General: patient resting comfortably, NAD, non-toxic in appearance, AA&O x 4 Skin: warm, dry, intact, scattered lesions on upper extremities HEENT: NC/AT, PERRL, EOMI, anicteric sclera, conjunctiva without injection, external ear normal to inspection and nontender, nares patent, moist mucus membranes, poor dentition, no oropharyngeal lesions, neck supple, trachea midline, no LAD, no thyromegaly, no JVD, blindness in left eye Heart: +S1/S2, regular, bradycardic, no m/r/g Lungs: equal air entry bilaterally, no rales/rhonchi/wheezes Abd: +BS, soft, NT/ND, no masses/organomegaly/ascites Ext: s/p left BKA, extremities warm, 2+ pulses in UE/LE bilaterally, no clubbing/cyanosis, trace pitting edema of RLE Neuro: nonfocal, patient AA&O x 4, speech intact, no facial droop, moving all extremities on command with equal strength 5/5 Results & Data Vital Signs (Past 12 Hours) Vital Signs Temp Pulse Resp BP Pulse Ox 02/11/19 10:30 63 16 118/52 L 95 02/11/19 10:07 68 15 123/54 L 95 02/11/19 10:00 74 13 130/71 94 02/11/19 09:57 69 14 153/72 H 95 02/11/19 09:27 95 02/11/19 09:24 36.7 C 67 22 166/77 H 95 Laboratory Results Lab Results 02/11/19 02/11/19 Range/Units 09:21 09:21 WBC 4.39 L (4.8-10.8) K/uL RBC 3.18 L (4.7-6.1) M/uL Hgb 10.3 L (14.0-18.0) g/dL Hct 31.4 L (42-52) % MCV 98.7 (80-100) fL MCH 32.4 (25-34) pg MCHC 32.8 (32-36) g/dL RDW Std Deviation 52.0 H (36.4-46.3) fL RDW Coeff of Nidia 14.4 (11.5-14.5) % Plt Count 220 (130-400) K/uL MPV 10.2 (7.4-10.4) fL Immature Gran % (Auto) 0.2 % Neut % (Auto) 69.9 % Lymph % (Auto) 12.8 % [place] % (Auto) 11.8 % Eos % (Auto) 4.8 % Baso % (Auto) 0.5 % Immature Gran # (Auto) 0.01 (0.00-0.02) K/uL Neut # (Auto) 3.07 (1.4-6.5) K/uL Lymph # (Auto) 0.56 L (1.2-3.4) K/uL [place] # (Auto) 0.52 (0.11-0.59) K/uL Eos # (Auto) 0.21 (0-0.5) K/uL Baso # (Auto) 0.02 (0-0.2) K/uL Sodium 131 L (136-145) mmol/L Potassium 3.4 L (3.5-5.1) mmol/L Chloride 95 L (98-107) mmol/L Carbon Dioxide 29 (21-32) mmol/L Anion Gap 7.0 (3-11) BUN 16 (7-18) mg/dl Creatinine 2.44 H (0.6-1.4) mg/dl Est Cr Clr Drug Dosing 35.9 ml/min Est GFR ( Amer) 31.9 Est GFR (Non-Af Amer) 27.5 BUN/Creatinine Ratio 6.4 L (10-20) Glucose 92 (70-99) mg/dl Calcium 8.6 (8.5-10.1) mg/dl Total Bilirubin 0.5 (0.2-1) mg/dl AST 17 (15-37) U/L ALT 19 (12-78) U/L Alkaline Phosphatase 91 (45-117) U/L Troponin I < 0.015 (0-0.045) ng/ml Total Protein 7.6 (6.4-8.2) gm/dl Albumin 3.4 (3.4-5.0) gm/dl Globulin 4.2 H (2.5-4.0) gm/dl Albumin/Globulin Ratio 0.8 L (0.9-2) Lipase 109 (73-393) U/L Diagnostic Findings XR chest 1V portable CLINICAL HISTORY: Chest Pain dyspnea COMPARISON STUDY: 08/19/2018 FINDINGS: Mild stable cardiomegaly. Lungs are considered clear. Poor inspiratory volumes. IMPRESSION: No acute process. The above report was generated using voice recognition software. It may contain grammatical, syntax or spelling errors. Electronically signed by: Parker Arthur M.D. 02/11/2019 10:05 AM Dictated: 02/11/19 1004 Transcribed: 02/11/19 1004 ECG Additional Comments: The study shows sinus rhythm with first degree AV block, AT=673, SLS=654, QJf=145, left axis deviations, poor R wave progression, nonspecific TWI Code Status & VTE Plan Code Status FULL VTE Prophylaxis Plan VTE Prophylaxis will be ordered: Yes PG Care Time/CCT Total # of Minutes Spent Total Time Spent with Patient: Total time spent is greater than 50% in coordination of care (as documented) at patient's floor/unit and/or counseling patient: (1) BPH (benign prostatic hyperplasia) Lower urinary tract symptom presence: symptoms absent Qualified Code(s): N40.0 - Benign prostatic hyperplasia without lower urinary tract symptoms (2) CAD (coronary artery disease) Associated angina: without angina Coronary Disease-Associated Artery/Lesion type: unspecified vessel or lesion type [place] vs. transplanted heart: [place] heart Qualified Code(s): I25.10 - Atherosclerotic heart disease of [place] coronary artery without angina pectoris (3) Anemia Anemia type: due to chronic kidney disease Chronic kidney disease stage: on chronic dialysis Qualified Code(s): N18.6 - End stage renal disease; D63.1 - Anemia in chronic kidney disease; Z99.2 - Dependence on renal dialysis (4) Back pain Back pain laterality: bilateral Back pain location: thoracic back pain Chronicity: acute Qualified Code(s): M54.6 - Pain in thoracic spine (5) Depression Depression Type: unspecified Qualified Code(s): F32.9 - Major depressive disorder, single episode, unspecified (6) Hypothyroid Hypothyroidism type: acquired Qualified Code(s): E03.9 - Hypothyroidism, unspecified (7) Diabetes mellitus with diabetic polyneuropathy Diabetes mellitus [place] insulin use: without skilled nursing use Diabetes mellitus type: type 2 Qualified Code(s): E11.42 - Type 2 diabetes mellitus with diabetic polyneuropathy (8) GERD (gastroesophageal reflux disease) Esophagitis presence: esophagitis presence not specified Qualified Code(s): K21.9 - Gastro-esophageal reflux disease without esophagitis
[2019-02-11] MEDS ORDERED: GLUCOSE 10 TABS/TUBE PO PRN (13:33)
[2019-02-11] MEDS ORDERED: ONDANSETRON INJ 2 MG/ML 2 ML VIAL IV PRN (13:33)
[2019-02-11] MEDS ORDERED: DEXTROSE 50% 50 ML SYRINGE IV PRN (13:33)
[2019-02-11] MEDS ORDERED: CARBOHYDRATES FOR HYPOGLYCEMIA PO PRN (13:33)
[2019-02-11] MEDS ORDERED: ACETAMINOPHEN 325 MG TAB PO PRN (13:33)
[2019-02-11] MEDS ORDERED: GLUCAGON FOR INJ 1 MG VIAL SQ PRN (13:33)
[2019-02-11] MEDS ORDERED: GLUCOSE 40% GEL 15 GM TUBE PO PRN (13:33)
[2019-02-11] MEDS: LIDOCAINE 5% 1 PATCH TD SCH (14:29)
[2019-02-11] MEDS: INSULIN ASPART 100 UNITS/ML 3 ML PEN SC SCH ×3 (14:30→21:15)
[2019-02-11 14:32] LABS: Magnesium 2.2 mg/dl (1.8-2.4); Phosphorus 1.4 mg/dl (2.5-4.9)
[2019-02-11] MEDS: MIDODRINE HCL 2.5 MG TAB PO SCH ×2 (15:41→18:21)
--- NOTE | 2019-02-11 16:25 | Emergency Department Note ---
Entered by Ismael Pride acting as a scribe for History of Present Illness General Chief complaint: Chest Pain Source: patient History of Present Illness Provider complaint: Chest pain Onset (ago): hour(s) 1 Location: chest Radiation: back Pain Consistency: + intermittent Maximum Pain Intensity: 7 Current Pain Intensity: 6 Quality: + sharp Relieved By: + medication Exacerbated By: + movement Associated symptoms: + other (Negative jaw or arm pain); no nausea/vomiting and no shortness of breath The patient is a 63 year old male w/ PMHx CVA, CAD, DM, Hypothyroid, BPH, SVT, and ESRD who presents to the ED w/ CC of intermittent central chest pain that started about an hour ago. The patient rates the pain as a 7/10 and notes nothing makes it better or worse. The Patient states that his pain starts in his back, between his shoulders and this pain is worse with movement. The patient reports that his pain started while he was at dialysis and he only finished 75% of the session. The patient has dialysis on 3 times a week on /. While at dialysis the patient received Aspirin and Nitro, which he said did help relieve chest pain. The patient denies any arm pain, jaw pain, or shortness of breath. He also denies any history of heart attacks or cardiac surgeries. Home Medications Home Medications Medication Instructions Recorded Confirmed Type Lactobacillus acidophilus 1 cap PO BID 04/11/18 02/11/19 History Renal Caps 1 mg PO DAILY 04/11/18 02/11/19 History atorvastatin 40 mg PO HS 04/11/18 02/11/19 History calcium acetate 3 tabs PO TIDM 04/11/18 02/11/19 History finasteride [Proscar] 5 mg PO DAILY 04/11/18 02/11/19 History fludrocortisone 0.1 mg PO MOWEFR 04/11/18 02/11/19 History gabapentin [Neurontin] 400 mg PO DAILY 04/11/18 02/11/19 History latanoprost [Xalatan] 1 drp OPL PM 04/11/18 02/11/19 History levothyroxine [Synthroid] 75 mcg PO DAILY 04/11/18 02/11/19 History midodrine 2.5 mg PO TID 04/11/18 02/11/19 History omeprazole 20 mg PO DAILY 04/11/18 02/11/19 History polyethylene glycol 3350 [Miralax] 17 g PO DAILY 04/11/18 02/11/19 History sucralfate 1 g PO BID 04/11/18 02/11/19 History Cold and Hot Pain Relief 1 patch TOPICAL BID 05/01/18 02/11/19 History Veltassa 16.8 g PO DAILY 05/01/18 02/11/19 History loratadine 10 mg PO HS 05/01/18 02/11/19 History ondansetron 4 mg PO QID PRN 05/01/18 02/11/19 History Eliquis 5 mg PO BID 08/11/18 02/11/19 History sertraline 150 mg PO HS #30 tab 08/21/18 02/11/19 Rx Allergies Allergy/AdvReac Type Severity Reaction Status Date / Time No Known Allergies Allergy ` Verified 07/31/18 11:56 Past Med/Surg History Medical History Callus (Acute) Diabetes mellitus with diabetic polyneuropathy (Acute) Acquired claw toe of right foot (Acute) Acquired hallux valgus of right foot (Acute) Hypothyroid (Chronic) SVT (supraventricular tachycardia) Bradycardia with less than 30 beats per minute End stage renal disease (Chronic) Morbid obesity (Chronic) Diabetic retinopathy (Chronic) Depression (Chronic) History of Clostridium difficile colitis (Chronic) History of non-ST elevation myocardial infarction (NSTEMI) (Chronic) CAD (coronary artery disease) (Chronic) "per records- had acute [place] in 07/2001 and 03/2010. 40% LAD and 30% circ obstruction noted in records- unknown date of cath. 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) History of colonoscopy with polypectomy (Chronic) "09/22/2014- adenomatous polyps" History of cholecystectomy (Resolved) H/O gastric bypass (Resolved) H/O total hip arthroplasty (Resolved) History of left below knee amputation (Resolved) Family History Other Cancer Heart disease Hypertension Social History Preferred Language: Dominican Communication Ability: Effective Infection Control Preventionist Required: No Beliefs That Will Affect Care: None Current Living Situation: [facility] Current Living Situation Comment: [facility] Feels Safe at Home: Yes Smoking Status: Never smoker Second Hand Exposure: No ; Hx Alcohol Use: Yes Hx Substance Use: No Review of Systems See HPI for pertinent positives & negatives. and A total of 10 systems reviewed and were otherwise negative Physical Exam Vital Signs Vital Signs - 24 hr 02/11/19 09:24 02/11/19 09:27 02/11/19 09:57 Temperature 36.7 C Temperature Source Oral Sepsis Recent Fever Within 48 Hours No Sepsis New/Unexplained Change in Mental Status No Sepsis Action Taken by Nursing No Action Required Pulse Rate 67 69 Pulse Rate from SpO2 Sensor 70 Respiratory Rate 22 14 Respiratory Effort / Characteristics Non-Labored Spontaneous Blood Pressure 166/77 H 153/72 H Blood Pressure Mean 106 99 Pulse Oximetry 95 95 95 Oxygen Delivery Method Room Air Room Air Room Air 02/11/19 10:00 02/11/19 10:07 02/11/19 10:30 Temperature Temperature Source Sepsis Recent Fever Within 48 Hours Sepsis New/Unexplained Change in Mental Status Sepsis Action Taken by Nursing Pulse Rate 74 68 63 Pulse Rate from SpO2 Sensor 74 68 63 Respiratory Rate 13 15 16 Respiratory Effort / Characteristics Blood Pressure 130/71 123/54 L 118/52 L Blood Pressure Mean 90 77 74 Pulse Oximetry 94 95 95 Oxygen Delivery Method Room Air Room Air Room Air GENERAL: Sitting up in bed, alert, chronically ill appearing, disheveled, well nourished, no distress, non-toxic EYE EXAM: normal conjunctiva. OROPHARYNX: no exudate, no erythema, lips, buccal mucosa, and tongue normal and mucous membranes are moist NECK: supple, no nuchal rigidity, no adenopathy, non-tender LUNGS: Clear to auscultation. Normal chest wall mechanics. Diminished breath sounds in bilateral bases. HEART: no murmurs, S1 normal and S2 normal ABDOMEN: abdomen soft, non-tender, normo-active bowel, sounds, no masses, no rebound or guarding. Surgical scars noted. BACK: Back is symmetrical on inspection and there is no deformity, no midline tenderness, no CVA tenderness. Reproducible tenderness to the upper paraspinal mid thoracic spine. SKIN: no rashes and no bruising UPPER EXTREMITIES: upper extremities are grossly normal. LOWER EXTREMITIES: No pitting edema. Access site in left groin is C/D/I. BKA of the LLE. NEURO EXAM: Normal sensorium, cranial nerves II-XII grossly intact, normal speech, no gross weakness of arms, no gross weakness of legs. Course ED COURSE: Vital signs were reviewed and showed hypertension The patients medical record was reviewed The above diagnostic studies were performed and reviewed. ED treatments and interventions as stated above. 0928: The patient was evaluated in room A02. A complete history and physical examination was performed. 1015: Upon reevaluation, the patient is resting in bed. I discussed my findings with the patient and she understands and agrees with the treatment pl an. 1024: I spoke to Dr. Sandip Mcfarland [facility] Hospitalist about the patient's case. She will be accepting him for further evaluation. Based on the patients age, coexisting illnesses, exam and lab findings the decision to treat as an inpatient was made. The patient remained stable while under my care. The patient will be evaluated for further management. Consultations Consultation #1: I spoke to Dr. Sandip Mcfarland [facility] Hospitalist about the patient's case. She will be accepting him for further evaluation. Time: 10:24 Administered Medications Insulin Aspart (Novolog Flexpen) 0 units SC ACHS LUCIA Stop: 03/13/19 13:32 Last Admin: 02/11/19 14:30 Dose: Not Given Documented by: [id number] Cosigned by: [id number] Lidocaine (Lidoderm 5%) 1 patch TD QAM LUCIA Stop: 03/13/19 14:14 Last Admin: 02/11/19 14:29 Dose: Not Given Documented by: [id number] Midodrine (Proamatine) 2.5 mg PO TID@0700,1300,1700 LUCIA Stop: 03/13/19 14:44 Last Admin: 02/11/19 15:41 Dose: 2.5 mg Documented by: [id number] Discontinued Medications Nitroglycerin (Nitrostat) 0.4 mg SL NOW STA Stop: 02/11/19 09:45 Last Admin: 02/11/19 10:07 Dose: 1.2 mg Documented by: [id number] Medical Decision Making Differential Diagnosis Differential diagnoses includes but is not limited to acute coronary syndrome, myocardial infarction, pericarditis, pulmonary embolus, aortic dissection, pneumonia, pneumothorax, musculoskeletal, shingles, esophageal. Medical Records Attestation: I reviewed the patient's medical records. Home Medications Current Medication List: was personally reviewed by me Laboratory Data Attestation: I reviewed the patient's lab results. Result diagrams: 02/11/19 09:21 02/11/19 09:21 Lab Results 02/11/19 02/11/19 02/11/19 Range/Units 09:21 09:21 09:21 WBC 4.39 L (4.8-10.8) K/uL RBC 3.18 L (4.7-6.1) M/uL Hgb 10.3 L (14.0-18.0) g/dL Hct 31.4 L (42-52) % MCV 98.7 (80-100) fL MCH 32.4 (25-34) pg MCHC 32.8 (32-36) g/dL RDW Std Deviation 52.0 H (36.4-46.3) fL RDW Coeff of Nidia 14.4 (11.5-14.5) % Plt Count 220 (130-400) K/uL MPV 10.2 (7.4-10.4) fL Immature Gran % (Auto) 0.2 % Neut % (Auto) 69.9 % Lymph % (Auto) 12.8 % [place] % (Auto) 11.8 % Eos % (Auto) 4.8 % Baso % (Auto) 0.5 % Immature Gran # (Auto) 0.01 (0.00-0.02) K/uL Neut # (Auto) 3.07 (1.4-6.5) K/uL Lymph # (Auto) 0.56 L (1.2-3.4) K/uL [place] # (Auto) 0.52 (0.11-0.59) K/uL Eos # (Auto) 0.21 (0-0.5) K/uL Baso # (Auto) 0.02 (0-0.2) K/uL Sodium 131 L (136-145) mmol/L Potassium 3.4 L (3.5-5.1) mmol/L Chloride 95 L (98-107) mmol/L Carbon Dioxide 29 (21-32) mmol/L Anion Gap 7.0 (3-11) BUN 16 (7-18) mg/dl Creatinine 2.44 H (0.6-1.4) mg/dl Est Cr Clr Drug Dosing 35.9 ml/min Est GFR ( Amer) 31.9 Est GFR (Non-Af Amer) 27.5 BUN/Creatinine Ratio 6.4 L (10-20) Glucose 92 (70-99) mg/dl Calcium 8.6 (8.5-10.1) mg/dl Phosphorus 1.4 L* (2.5-4.9) mg/dl Magnesium 2.2 (1.8-2.4) mg/dl Total Bilirubin 0.5 (0.2-1) mg/dl AST 17 (15-37) U/L ALT 19 (12-78) U/L Alkaline Phosphatase 91 (45-117) U/L Troponin I < 0.015 (0-0.045) ng/ml Total Protein 7.6 (6.4-8.2) gm/dl Albumin 3.4 (3.4-5.0) gm/dl Globulin 4.2 H (2.5-4.0) gm/dl Albumin/Globulin Ratio 0.8 L (0.9-2) Lipase 109 (73-393) U/L Imaging Data Radiologist's Impression: Radiology results as stated below per my review and the radiologist's interpretation: XR chest 1V portable CLINICAL HISTORY: Chest Pain dyspnea COMPARISON STUDY: 08/19/2018 FINDINGS: Mild stable cardiomegaly. Lungs are considered clear. Poor inspiratory volumes. IMPRESSION: No acute process. The above report was generated using voice recognition software. It may contain grammatical, syntax or spelling errors. Electronically signed by: Parker Arthur M.D. 02/11/2019 10:05 AM ECG Data Attestation: I personally reviewed and interpreted this ECG as follows: Indication: chest pain Rate (beats per minute): 68 Rhythm: sinus rhythm Findings: + 1st degree AV block, + nonspecific-ST abn (High lateral), + Q waves (Septal) and + left axis deviation; no PVC Comparison ECG Date: from (10/19/18) Change: no significant change Blood Pressure Blood Pressure Findings: Low blood pressure Blood Pressure Disposition: further management by hospitalist SHANITA Narrative Patient is a 63-year-old male who presents the ER for chest pain and back pain. Back pain is worse with twisting turning bending and on palpation. Chest pain is not reproducible. Does describe it as a slight heaviness. Patient has a past medical history of CKD, hypertension, hyperlipidemia on dialysis with a previous NSTEMI. Patient was brought in by EMS and given aspirin and nitro. His pain improved with nitro. Labs show a mild leukopenia. No significant anemia. BMP with mild hyponatremia. There is a mild hypokalemia. He did have 75% of his dialysis today when it occurred.. Creatinine was 2.44. Troponin was negative. Lipase unremarkable. Chest x-ray unremarkable. EKG nondiagnostic. Symptoms completely resolved with nitro. He was updated bedside. He was admitted to the hospitalist for further work-up. Impression & Plan Chest pain, precordial, Back pain, Dependence on renal dialysis Discharge Plan Visit Data *Final* Discharge Date/Time: 02/11/19 13:08 Chief Complaint: Chest Pain ED Provider: Teto Sullivan Discharge Problem: Chest pain, precordial, Back pain, Dependence on renal dialysis Patient Disposition: Admitted As Inpatient Discharge Instructions Interventions: ED Discharge Assessment Last Done: 02/11/19 13:08 Discharge Problem: Back pain Qualifiers: Back pain location: thoracic back pain Chronicity: acute Back pain laterality: bilateral Qualified Code(s): M54.6 - Pain in thoracic spine The scribe's documentation has been prepared under my direction and personally reviewed by me in its entirety. I confirm that the note above accurately reflects all work, treatment, procedures, and medical decision making performed by me.
[2019-02-11] MEDS ORDERED: CALCIUM ACETATE 667 MG CAP PO SCH (17:00)
[2019-02-11] MEDS: SUCRALFATE 1 GM TAB PO SCH (18:20)
[2019-02-11] MEDS: APIXABAN 5 MG TABLET PO SCH (20:50)
[2019-02-11] MEDS ORDERED: LORATADINE 10 MG TAB PO SCH (21:00)
[2019-02-11] MEDS ORDERED: LATANOPROST 0.005% OP SOLN 2.5 ML BTL OPL SCH (21:00)
[2019-02-11] MEDS ORDERED: SERTRALINE HCL 100 MG TABLET PO SCH (21:00)
[2019-02-11] MEDS ORDERED: ATORVASTATIN 40 MG TAB PO SCH (21:00)
[2019-02-12] MEDS: MIDODRINE HCL 2.5 MG TAB PO SCH ×3 (06:13→17:08)
[2019-02-12 06:23] LABS: Basophils # (auto) 0.02 K/uL (0-0.2); Basophils % (auto) 0.5 %; Eosinophils # (auto) 0.16 K/uL (0-0.5); Eosinophils % (auto) 3.7 %; Hematocrit (blood only) 32.6 % (42-52); Hemoglobin 10.5 g/dL (14.0-18.0); Lymphocytes # (auto) 0.73 K/uL (1.2-3.4); Lymphocytes % (auto) 16.9 %; Mean Corpuscular Hemoglobin 32.1 pg (25-34); Mean Corpuscular Hgb Conc 32.2 g/dL (32-36); Mean Corpuscular Volume 99.7 fL (80-100); Mean Platelet Volume 10.4 fL (7.4-10.4); Monocytes # (auto) 0.59 K/uL (0.11-0.59); Monocytes % (auto) 13.6 %; Neutrophils # (auto) 2.83 K/uL (1.4-6.5); Neutrophils % (auto) 65.3 %; Platelet Count 203 K/uL (130-400); RDW Coefficient of Variation 14.3 % (11.5-14.5); RDW Standard Deviation 51.7 fL (36.4-46.3); Red Blood Count 3.27 M/uL (4.7-6.1); White Blood Count 4.33 K/uL (4.8-10.8)
[2019-02-12] MEDS ORDERED: LEVOTHYROXINE SODIUM 75 MCG TABLET PO SCH (06:30)
[2019-02-12 07:00] LABS: BUN Creatinine Ratio 7.8 (10-20); Calcium 8.6 mg/dl (8.5-10.1); Creatinine Clr Calc Pharmacy 20.1 ml/min; Est GFR (African American) 16.2; Potassium 4.6 mmol/L (3.5-5.1)
[2019-02-12] MEDS ORDERED: FLUDROCORTISONE ACETATE 0.1 MG TAB PO SCH (08:00)
[2019-02-12] MEDS ORDERED: GABAPENTIN 400 MG CAP PO SCH (08:00)
[2019-02-12] MEDS: LIDOCAINE 5% 1 PATCH TD SCH (08:41)
[2019-02-12] MEDS: INSULIN ASPART 100 UNITS/ML 3 ML PEN SC SCH ×4 (08:42→17:05)
[2019-02-12] MEDS ORDERED: PATIROMER CALCIUM SORBITEX 8.4 GM PACK PO SCH (09:00)
[2019-02-12] MEDS ORDERED: FINASTERIDE 5 MG TAB PO SCH (09:00)
[2019-02-12] MEDS ORDERED: PANTOprazole 40 MG TAB PO SCH (09:00)
[2019-02-12] MEDS ORDERED: NEPHROCAPS PO SCH (09:00)
[2019-02-12] MEDS ORDERED: POLYETHYLENE (MIRALAX) 17 GM PACK PO SCH (09:00)
--- NOTE | 2019-02-12 12:01 | Medical Student Progress Note ---
Date of Service February 12, 2019 Assessment & Plan (1) Chest pain, precordial: Chest pain was relieved with Nitroglycerin. Currently no chest pain. 1st Troponin negative, abbreviated interval testing 2 more times for safe discharge EKG nonspecific CXR to rule out aortic dissection, PE, pneumonia, pneumothorax exercise EKG echocardiogram consider costchondritis due to sharp tender nature of pain (2) Back pain: Tender to palpation between scapula. Acetaminophen, no NSAID due to renal function Back pain laterality: bilateral Back pain location: thoracic back pain Chronicity: acute Qualified Code(s): M54.6 - Pain in thoracic spine Subjective Pt is a 63 y/o male with a history of HLD, DM, SVT, DM, CAD, NSTEMI, CVA, ESRD who presented yesterday with right side chest pain and back pain between the scapula. Pt states he started feeling pain following dialysis. Pt states it was the first time experiencing this chest pain, which he states is different from the chest pain he had with NSTEMI. Pt describes chest pain to be a sharp stabbing to be focused on a single point that was tender with palpation that would come and go that eventually relieved with nitroglycerin. Pt describes back pain between scapular to be like a dull muscle ache that relieved with Tylenol, and has experienced this pain multiple times before. Pt states chest and back pain did not worsen nor improve with any change in position. Pt states he did not have any change in cognition, dyspnea, diaphoresis, change in vision, weakness with this episode of chest and back pain. Pt states he is not experiencing any chest pain today but still experiencing discomfort between scapula. 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 Respiratory: no dyspnea Cardiovascular: no chest pain Gastrointestinal: no problem reported Genitourinary: no problem reported Musculoskeletal: Left below knee amputation Neurologic: no loss of sensation Physical Exam Constitutional: + obese; no acute distress Respiratory: normal respiratory effort, lungs clear to auscultation Cardiovascular: RRR, no murmur, no edema Vessels: normal peripheral pulses; no carotid bruit Chest (Breasts): Additional Comments: right chest non tender to palpation Gastrointestinal (Abdomen): normal bowel sounds, soft, nontender, no hepatosplenomegaly Musculoskeletal: tender to palpation between scapula Results & Data Vital Signs (Past 12 Hours) Vital Signs Temp Pulse Pulse Resp BP BP Pulse Ox 02/12/19 11:00 36.6 C 56 L 18 159/77 H 97 02/12/19 09:28 52 L 02/12/19 07:00 36.6 C 56 L 20 129/77 95 02/12/19 05:16 36.8 C 57 L 18 143/77 H 93 02/12/19 00:00 53 L
[2019-02-12] MEDS: SUCRALFATE 1 GM TAB PO SCH ×2 (12:15→17:07)
--- NOTE | 2019-02-12 12:37 | Cardiology Consultation ---
Date of Consultation February 12, 2019 Assessment & Plan (1) Chest pain, precordial: 2. Nonobstructive coronary artery disease 3. ESRD on hemodialysis 4. Peripheral arterial disease, post left BKA 5. Type 2 diabetes 6. History of DVT-- on anticoagulation 7. History of heart block status post failed pacemaker implantation due to venous anatomy 8. History of SVT Patient admitted yesterday after developing back and chest pain during dialysis treatment. Continued to have intermittent, sharp chest pain into late last night/early this morning. Currently chest pain free and feeling well. Hemodynamically and electrically stable. On exam well perfused without signs of heart failure. EKG without acute ST changes and troponin remains undetectable. Echo with normal LV function and wall motion. Very low suspicion that symptoms represent ACS. However patient is high risk for coronary disease and recommend further risk stratification with myocardial perfusion scan. This can be performed as outpatient if unable to be obtained during admission. Supervising Physician Co-Signing Physician Notes I saw and examined this patient at the bedside and agree with the documentation by Flaca ESPINAL. Briefly, the patient did develop some symptoms of very atypical, right-sided and sharp, jabbing pains while on dialysis yesterday. These pains are very fleeting in nature but he did request transport to the hospital given his concerns about a heart attack. Additionally, he did have some back discomfort. On additional questioning it seems as if this back discomfort is a common symptom that he experiences during dialysis. It has been present for nearly a year in generally resolves with a change in seating arrangement. He feels that this is likely room more related to the uncomfortable nature of the furniture at the dialysis center rather than any medical issue. I would agree that his symptoms are noncardiac in nature. He certainly has coronary disease. He does not appear to have symptoms associated with coronary disease currently. His echocardiogram revealed preserved LV systolic function yesterday. I am not confident that additional risk stratification is required. He appears to be a poor candidate overall for intervention given his access issues. I think the decision to perform any risk stratification can certainly be deferred to the outpatient setting. Do not believe he requires any stress testing today. Interestingly, this patient was evaluated approximately 1 year ago for evidence of heart block. Seems that on telemetry monitoring he did have significant conduction disease and was taken to the electrophysiology suite for an attempt at pacemaker placement. However, he had significant venous access issues involving both subclavian veins. There did not appear to be any discrete connection between the subclavian veins and the right atrium except through diffuse collateral networks. As such, he was referred for possible placement of a lead this pacemaker using femoral access. We do not have any record of this encounter but the patient did report that he saw someone he had O[place] regarding this procedure he was told that this also was not likely to be successful and that any placement of a pacemaker may require an actual thoracotomy. He seems to have done well since that time. He does not report symptoms of dizziness, lightheadedness or syncope and his rhythm on his EKG currently appears to be sinus with first-degree AV block. I think we would have to have evidence of significant heart block or symptoms in order to pursue placement of a pacemaker at this point. History of Present Illness Reason for Consultation: Chest pain Attending Physician: Guillermo Cole History of Present Illness Mr. Guthrie is a 63 year old male with a medical history significant for ESRD on hemodialysis (MWF), peripheral arterial disease with history of left BKA, nonobstructive CAD, SVT, cerebral vascular disease and history of heart block with failed pacemaker implantation. Patient lives at [facility]. He has ESRD on hemodialysis at [facility] in [place]. Yesterday during his dialysis treatment he developed back and chest pain. His back pain was located in between his shoulder blades and he reports he has experienced that pain in the past and attributes it to the dialysis chair being uncomfortable. He also developed pain in the middle to right side of his chest he describes as a "stabbing." Chest pain occurs intermittently lasting for several seconds in duration. No alleviating or aggravating factors. Patient has a prosthesis but is mostly is wheelchair bound and also requires assistance for transfers. He had no associated shortness of breath, nausea or diaphoresis. He has reported mild nonobstructive coronary artery disease on left heart catheterization in [place] in 2003. Upon admission EKG with poor R wave progression but no acute ST/T wave changes and troponin negative. Echo with normal LV function and wall motion. Patient reports that his pain back pain resolved yesterday and he has not had any chest pain since late last night. He is currently feeling well. No shortness of breath, orthopnea, PND or edema. No palpitations, lightheadedness, near syncope or syncope. Allergies Allergy/AdvReac Type Severity Reaction Status Date / Time No Known Allergies Allergy ` Verified 07/31/18 11:56 Home Medications Home Medications Medication Instructions Recorded Confirmed Type Lactobacillus acidophilus 1 cap PO BID 04/11/18 02/11/19 History Renal Caps 1 mg PO DAILY 04/11/18 02/11/19 History atorvastatin 40 mg PO HS 04/11/18 02/11/19 History calcium acetate 3 tabs PO TIDM 04/11/18 02/11/19 History finasteride [Proscar] 5 mg PO DAILY 04/11/18 02/11/19 History fludrocortisone 0.1 mg PO MOWEFR 04/11/18 02/11/19 History gabapentin [Neurontin] 400 mg PO DAILY 04/11/18 02/11/19 History latanoprost [Xalatan] 1 drp OPL PM 04/11/18 02/11/19 History levothyroxine [Synthroid] 75 mcg PO DAILY 04/11/18 02/11/19 History midodrine 2.5 mg PO TID 04/11/18 02/11/19 History omeprazole 20 mg PO DAILY 04/11/18 02/11/19 History polyethylene glycol 3350 [Miralax] 17 g PO DAILY 04/11/18 02/11/19 History sucralfate 1 g PO BID 04/11/18 02/11/19 History Cold and Hot Pain Relief 1 patch TOPICAL BID 05/01/18 02/11/19 History Veltassa 16.8 g PO DAILY 05/01/18 02/11/19 History loratadine 10 mg PO HS 05/01/18 02/11/19 History ondansetron 4 mg PO QID PRN 05/01/18 02/11/19 History Eliquis 5 mg PO BID 08/11/18 02/11/19 History sertraline 150 mg PO HS #30 tab 08/21/18 02/11/19 Rx Patient History Medical History Callus (Acute) Diabetes mellitus with diabetic polyneuropathy (Acute) Acquired claw toe of right foot (Acute) Acquired hallux valgus of right foot (Acute) Hypothyroid (Chronic) SVT (supraventricular tachycardia) Bradycardia with less than 30 beats per minute End stage renal disease (Chronic) Morbid obesity (Chronic) Diabetic retinopathy (Chronic) Depression (Chronic) History of Clostridium difficile colitis (Chronic) History of non-ST elevation myocardial infarction (NSTEMI) (Chronic) CAD (coronary artery disease) (Chronic) "per records- had acute CA in 07/2001 and 03/2010. 40% LAD and 30% circ obstruction noted in records- unknown date of cath. 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) History of colonoscopy with polypectomy (Chronic) "09/22/2014- adenomatous polyps" History of cholecystectomy (Resolved) H/O gastric bypass (Resolved) H/O total hip arthroplasty (Resolved) History of left below knee amputation (Resolved) Family History Other Cancer Heart disease Hypertension Social History Preferred Language: Honduran Communication Ability: Effective Corporate Sales Manager Required: No Beliefs That Will Affect Care: None Current Living Situation: [facility] Current Living Situation Comment: [facility] Feels Safe at Home: Yes Smoking Status: Never smoker Second Hand Exposure: No ; Hx Alcohol Use: Yes Hx Substance Use: No Review of Systems Review of Systems: All systems reviewed & are unremarkable except as noted in HPI & below Physical Exam Physical Exam: General: No acute distress, comfortable. HEENT: Head is normal. PERRLA. EOMI. Sclerae anicteric. Ears, nose and throat unremarkable. Mucous membranes moist. Neck: Normal carotid upstrokes, no bruits. No appreciable JVD. Lungs: Clear to auscultation bilaterally without rales, rhonchi or wheezes. Cardiac: Regular rate and rhythm. S1-S2 normal. Systolic murmur. Chest wall tenderness to palpation Abdomen: Soft and nontender. Bowel sounds normal. No mass or organomegaly. No abdominal bruit. Extremities/vascular: --Well perfused. No peripheral edema. Left LE BKA. Permcath left groin --Radial pulses 1+ bilaterally --R DP/PT pulses 1+ Skin: No rash or abnormal lesions. Normal turgor. Neurologic: Nonfocal Psychiatric: Affect appropriate. Alert and oriented. Results & Data Vital Signs (Past 12 Hours) Vital Signs Temp Pulse Pulse Resp BP BP Pulse Ox 02/12/19 11:47 159/77 H 02/12/19 11:00 36.6 C 56 L 18 159/77 H 97 02/12/19 09:28 52 L 02/12/19 07:00 36.6 C 56 L 20 129/77 95 02/12/19 05:16 36.8 C 57 L 18 143/77 H 93 Laboratory Results Laboratory Results - last 24 hr 02/11/19 02/11/19 02/11/19 09:21 14:28 16:34 WBC RBC Hgb Hct MCV MCH MCHC RDW Std Deviation RDW Coeff of Nidia Plt Count MPV Immature Gran % (Auto) Neut % (Auto) Lymph % (Auto) [place] % (Auto) Eos % (Auto) Baso % (Auto) Immature Gran # (Auto) Neut # (Auto) Lymph # (Auto) [place] # (Auto) Eos # (Auto) Baso # (Auto) Sodium Potassium Chloride Carbon Dioxide Anion Gap BUN Creatinine Est Cr Clr Drug Dosing Est GFR ( Amer) Est GFR (Non-Af Amer) BUN/Creatinine Ratio Glucose POC Glucose 114 H 129 H Calcium Phosphorus 1.4 L* Magnesium 2.2 Troponin I 02/11/19 02/11/19 02/12/19 17:15 20:43 05:27 WBC 4.33 L RBC 3.27 L Hgb 10.5 L Hct 32.6 L MCV 99.7 MCH 32.1 MCHC 32.2 RDW Std Deviation 51.7 H RDW Coeff of Nidia 14.3 Plt Count 203 MPV 10.4 Immature Gran % (Auto) 0.0 Neut % (Auto) 65.3 Lymph % (Auto) 16.9 [place] % (Auto) 13.6 Eos % (Auto) 3.7 Baso % (Auto) 0.5 Immature Gran # (Auto) 0.00 Neut # (Auto) 2.83 Lymph # (Auto) 0.73 L [place] # (Auto) 0.59 Eos # (Auto) 0.16 Baso # (Auto) 0.02 Sodium Potassium Chloride Carbon Dioxide Anion Gap BUN Creatinine Est Cr Clr Drug Dosing Est GFR ( Amer) Est GFR (Non-Af Amer) BUN/Creatinine Ratio Glucose POC Glucose 94 Calcium Phosphorus Magnesium Troponin I < 0.015 02/12/19 02/12/19 02/12/19 05:27 07:28 09:07 WBC RBC Hgb Hct MCV MCH MCHC RDW Std Deviation RDW Coeff of Nidia Plt Count MPV Immature Gran % (Auto) Neut % (Auto) Lymph % (Auto) [place] % (Auto) Eos % (Auto) Baso % (Auto) Immature Gran # (Auto) Neut # (Auto) Lymph # (Auto) [place] # (Auto) Eos # (Auto) Baso # (Auto) Sodium 131 L Potassium 4.6 D Chloride 94 L Carbon Dioxide 28 Anion Gap 9.0 BUN 33 H D Creatinine 4.27 H D Est Cr Clr Drug Dosing 20.1 Est GFR ( Amer) 16.2 Est GFR (Non-Af Amer) 14.0 BUN/Creatinine Ratio 7.8 L Glucose 80 POC Glucose 77 Calcium 8.6 Phosphorus Magnesium Troponin I < 0.015 02/12/19 11:35 WBC RBC Hgb Hct MCV MCH MCHC RDW Std Deviation RDW Coeff of Nidia Plt Count MPV Immature Gran % (Auto) Neut % (Auto) Lymph % (Auto) [place] % (Auto) Eos % (Auto) Baso % (Auto) Immature Gran # (Auto) Neut # (Auto) Lymph # (Auto) [place] # (Auto) Eos # (Auto) Baso # (Auto) Sodium Potassium Chloride Carbon Dioxide Anion Gap BUN Creatinine Est Cr Clr Drug Dosing Est GFR ( Amer) Est GFR (Non-Af Amer) BUN/Creatinine Ratio Glucose POC Glucose 112 H Calcium Phosphorus Magnesium Troponin I Diagnostic Findings Echo-- normal LV size and function. No wall motion abnormalities. Grade I diastolic dysfunction. Aortic valve sclerosis mild without significant stenosis. Moderate mitral annular calcification. Mild mitral stenosis. RV systolic pressure normal. ECG Additional Comments: EKG reviewed-- sinus rhythm with poor R wave progression PG Care Time/CCT Total # of Minutes Spent Total Time Spent with Patient: Total time spent is greater than 50% in coordination of care (as documented) at patient's floor/unit and/or counseling patient:
[2019-02-12] MEDS: APIXABAN 5 MG TABLET PO SCH (13:01)
[2019-02-13] MEDS ORDERED: GABAPENTIN 400 MG CAP PO SCH (04:00)
[2019-02-13] MEDS ORDERED: FLUDROCORTISONE ACETATE 0.1 MG TAB PO SCH (04:00)
--- NOTE | 2019-02-22 22:07 | Discharge Summary ---
Date of Service February 12, 2019 Admission HPI Per Admitting Provider Andrew Guthrie is a 63yo C male with multiple medical problems to include ESRD on HD q M/W/F (follows with Candice [facility], receives HD at [facility]), CAD s/p NH, HTN, HLP, DM, arrhythmia ?SVT vs AF. Patient was receiving HD this AM when he developed severe pain in his back, across his shoulders, 10/10 in severity. Pain described as aching, improved with positional changes. Patient then developed right sided chest discomfort, 8/10 in severity, intermittent. He was given Nitro with relief in pain. Presently 0/10 in back and chest. He has never had this pain before. States that his HD session went well, no complications, blood pressure remained stable. He received only 3/4 of his treatment. ER Course: Nitro Principal Diagnosis chest pain Discharge Exam General: patient resting comfortably, NAD, non-toxic in appearance, AA&O x 4 Skin: warm, dry, intact, scattered lesions on upper extremities HEENT: NC/AT, PERRL, EOMI, anicteric sclera, conjunctiva without injection, external ear normal to inspection and nontender, nares patent, moist mucus membranes, poor dentition, no oropharyngeal lesions, neck supple, trachea midline, no LAD, no thyromegaly, no JVD, blindness in left eye Heart: +S1/S2, regular, bradycardic, no m/r/g Lungs: equal air entry bilaterally, no rales/rhonchi/wheezes Abd: +BS, soft, NT/ND, no masses/organomegaly/ascites Ext: s/p left BKA, extremities warm, 2+ pulses in UE/LE bilaterally, no clubbing/cyanosis, trace pitting edema of RLE Neuro: nonfocal, patient AA&O x 4, speech intact, no facial droop, moving all extremities on command with equal strength 5/5 Discharge Data Allergies Allergy/AdvReac Type Severity Reaction Status Date / Time No Known Allergies Allergy ` Verified 07/31/18 11:56 Consultations 02/11/19 10:29 ED Decision to Admit Stat 02/12/19 08:12 Consult Cardiology Routine Hospital Course (1) Chest pain, precordial: Patient with known CAD s/p NSTEMI in the past. Patient developed acute chest pain during HD. Presently CP free, relieved with Nitro. Troponin x [address] negative. [address] with nonspecific ST changes -Observation to medical floor with telemetry monitorin -Trend cardiac enzymes x 3 sets (negative) Very low suspicion that symptoms represent ACS. However patient is high risk for coronary disease and recommend further risk stratification with myocardial perfusion scan. This can be performed as outpatient if unable to be obtained during admission. (2) Back pain: Back pain is reproducible with palpation across shoulder blades. Also positional. Suspect musculoskeletal origin. -Lidoderm patch -Heating pad -Tylenol PRN -Continue to monitor (3) End stage renal disease: Patient ESRD on HD q M/W/. Electrolytes and metabolic parameters acceptable at this time. Patient does not appear to be volume overloaded. He is anuric -Continue Phoslo and Renal caps -Continue Veltessa -Labs in AM -Renal diet -Do not anticipate that patient will need HD during this hospital stay as he is Observation for CP/rule out ACS which is typically a very brief stay. If labs or volume status become less than optimal will consult Nephrology and change to inpatient status so patient can be dialyzed. (4) Diabetes mellitus with diabetic polyneuropathy: Blood sugar presently 92. AIC = 5.7 in September 2018 -ISS coverage -CC diet as tolerated (5) CAD (coronary artery disease): Rule out ACS as above -Continue statin (6) GERD (gastroesophageal reflux disease): Chronic. Well controlled at present -Continue Sucralfate 1g PO BID -Continue Omeprazole 20mg po daily (7) BPH (benign prostatic hyperplasia): Patient is anuric. On Proscar -Continue Proscar at home dose (8) Orthostatic hypotension dysautonomic syndrome: Blood pressure stable at present -Continue Fludrocortisone 0.1mg po daily -Continue Midodrine (9) Hyperlipidemia LDL goal <70: Chronic -Continue Atorvastatin 40mg po qHS (10) Hypothyroid: Chronic -Continue Synthroid 75mcg po daily (11) Morbid obesity: Noted -Encourage lifestyle modifications to include healthy diet and increased exercise (12) Depression: Chronic. Well controlled -Continue Sertraline (13) Anemia: H/H near baseline. No active bleeding -Continue to monitor CBC (14) SVT (supraventricular tachycardia): Patient presently in SR with first degree AV block. He states that he was worked up for a possible pacemaker in the past. Due to his HD access they were unable to access via anterior chest wall and due to vascular anatomy they were unable to place device via groin access. He states that he will not have a pacer unless absolutely necessary. -Continue Eliquis \ Total Time Total Time Spent Total Time Spent (In Minutes): 32 Total Time Includes: Examination of the Patient, Discharge Planning and Medication Reconciliation Discharge Plan Discharge Items Patient Disposition: Transfer [facility] Reason For Visit: CHEST PAIN Discharge Diagnosis: Chest pain Activity: Resume your previous activity Non-emergency contact: Primary Care Provider Call non-emergency contact if: you have any medication questions Follow-up/Referrals: Nick Ho [Primary Care Provider] - Diet: Regular Addtl Attending Provider Instructions: Followup with PCP in 1-2 weeks Continue with your regular schedule of dialysis You were seen by cardiology. Did not feel your pain is related to your heart. Having said that, cardiology would like to followup with you. Pending Studies at Discharge: No Stand-Alone Forms: Call Back Authorization, Count Includes [facility] Skilled Items Patient informed of condition?: Yes DNR: No Discharge Level of Care: Skilled Communicable Disease: No Discharge Prognosis: Stable Lines: None Urinary Catheter: No Medications and DC Order Prescriptions: No Action Eliquis 5 mg tablet 5 mg PO BID Qty: 60 RF: 0 escitalopram oxalate 10 mg tablet 10 mg PO DAILY Qty: 30 RF: 0 gabapentin 400 mg capsule 400 mg PO TID Qty: 60 RF: 0 omeprazole 20 mg capsule,delayed release(DR/EC) 20 mg PO DAILY Qty: 30 RF: 0 latanoprost 0.005 % drops 1 drops OP DAILY RF: 0 Nephronex 900 mcg/5 mL liquid 5 ml PO BID RF: 0 fludrocortisone 0.1 mg tablet 0.1 mg PO DAILY Qty: 30 RF: 0 levothyroxine 100 mcg tablet 100 mcg PO DAILY Qty: 30 RF: 0 calcium acetate 667 mg capsule 2,001 mg PO TID Qty: 810 RF: 0 midodrine 2.5 mg tablet 2.5 mg PO BID Qty: 30 RF: 0 Discharge Orders: Discharge Order (Routine); Ordered 02/12/19 Ordered By: Guillermo Cole Admission Data Admit Date/Time: 02/11/19 11:00 Attending Provider: Guillermo Cole Admit Provider: Whitley Oropeza Primary Care Provider: Nick Ho Other Providers: Whitley Oropeza ; Ismael Grubbs Other Interventions: Discharge Summary Assessment (RN) Last Done: 02/12/19 16:53 DC Date/Time DO NOT enter until pt leaves facility: 02/12/19 17:53
== END 2019-02-12 17:53 ==
LOC: ED 09:13 → 2N 09:13 → SUATTDRO 11:00 → 2N 13:08

== ENCOUNTER 2021-09-18 16:20 | Inpatient (IN) ==
[2021-09-18] MEDS ORDERED: FAMOTIDINE 20MG IV PUSH 20 MG/5 ML SYR IV STA (16:27)
[2021-09-18] MEDS ORDERED: SODIUM CHLORIDE 0.9% 500 ML IV STA (16:27)
[2021-09-18] MEDS ORDERED: PANTOprazole 40 MG in SYRINGE 0 ML IV ONE (16:27)
--- NOTE | 2021-09-18 16:35 | Emergency Department Note ---
Impression & Plan Acute upper gastrointestinal bleeding, Hypoglycemia, Abdominal pain, Chronic kidney disease with end stage renal failure on dialysis ED Provider Note NAME: ASHLEY CANTU AGE: 65 SEX: M : 1955 ARRIVES VIA: Ambulance INFORMANT: Patient prehospital personnel ED PROVIDER(S): Cosme Sanchez DO CHIEF COMPLAINT: Upper GI bleeding HPI: Patient is a 65-year-old male who presented to the emergency department by ambulance for an evaluation of upper GI bleeding. The patient is a end-stage renal dialysis patient. Apparently he has been refusing to eat and has not had much to eat or drink over the last 3 to 4 days. He is also been refusing his outpatient medications. According to the prehospital personnel the patient is a full code and would want everything done. The patient denies having any trauma. He denies having any chest pain or difficulty breathing. He does complain of some left-sided flank pain. He denies having any hematemesis. He has noticed dark stools. ROS: See above HPI for pertinent positives & negatives. A total of 10 systems reviewed and were otherwise negative. PAST MEDICAL HISTORY: See Below PAST SURGICAL HISTORY: See Below FAMILY HISTORY: See Below SOCIAL HISTORY: See Below HOME MEDICATIONS: See Below ALLERGIES: See Below VITALS: See Below PHYSICAL EXAMINATION: GENERAL: Patient is awake alert in no acute distress patient is resting comfortably and showing no signs of anxiety EYES: The conjunctivae are clear. Left pupil is cloudy with a suggestion of a c ataract. EARS, NOSE, MOUTH AND THROAT: The nose is without any evidence of any deformity. NECK: The neck is nontender and supple. RESPIRATORY: Normal respiratory effort is noted there is no evidence of wheezing rhonchi or rales CARDIOVASCULAR: Regular rate and rhythm noted there no murmurs rubs or gallops normal S1 normal S2. GASTROINTESTINAL: Abdomen is soft and nondistended. There is left-sided tenderness to palpation but no guarding or rigidity. Rectal exam revealed black stool which was heme positive. MUSCULOSKELETAL/EXTREMITIES: Left below-knee patient was noted. SKIN: Skin is cool and dry. NEUROLOGIC: Patient is awake alert and oriented x3 MEDICAL DECISION MAKING: The patient is a 65-year-old male who presented to the emergency department for an evaluation of dark stool. The patient has not been taking his medications for the last few days and not eating. He was found to have hypoglycemia in the emergency department. He was treated with dextrose. I discussed the patient's laboratory and radiographic studies with him. I also discussed his case with the on-call [facility] hospitalist. They have agreed to evaluate the patient in the emergency department for further management and disposition. Triage Nursing notes reviewed. Prior medical records reviewed Vital Signs: reviewed and remarkable for tachycardia. Differential diagnosis: Diverticulosis, AVM, coagulopathy, colitis, inflammatory bowel disease, malignancy, Judi-Bo tear, esophagitis, peptic ulcer disease, variceal bleed, gastritis, epistaxis, fissure, hemorrhoids, as well as other pathologies. ER treatment provided: See below Diagnostics interpreted by me: ECG: EKG was obtained in the emergency department. My interpretation is atrial fibrillation at 106 bpm. No PVCs were noted. Low voltage was noted throughout. Poor R wave progression was noted. This was compared to a tracing from May 05, 2021. No changes were noted. Cardiac Monitoring: An order was placed for continuous cardiac monitoring. The monitor shows a rate of 101 bpm with atrial fibrillation. Laboratory studies: As stated above and show below. Imaging studies: See below Consultation(s): Dr. Washburn notified about the patient. They will evaluate the patient in the emergency department. Past Med/Surg History Medical History Amputation of left lower extremity below knee Anemia Atrial fibrillation Bradycardia with less than 30 beats per minute hx CAD (coronary artery disease) "per records- had acute MT in 07/2001 and 03/2010. 40% LAD and 30% circ obstruction noted in records- unknown date of cath. " Depression Diabetes mellitus with diabetic polyneuropathy Diabetic retinopathy Dialysis patient AT [facility] EVERY SATURDAY/SAT/SATURDAY End stage renal disease Failed attempted surgical procedure attempted pacemaker insertion 02/2018 for bradycardia per medical notes ([facility]) Fall Fluency disorder following cerebrovascular accident patient Alert & Oriented x3 (per staff at [facility]) GERD (gastroesophageal reflux disease) Gout Hemodialysis patient History of Clostridium difficile colitis History of COVID-19 UNKNOWN DATE, FROM [facility] History of CVA (cerebrovascular accident) date unknown per [facility] History of GI bleed "EGD 02/08/15- ulceration at gastrojejunal anastomosis from bastric bypass Colonoscopy 02/08/15- internal hemorrhoids" History of methicillin resistant staphylococcus aureus (MRSA) History of non-ST elevation myocardial infarction (NSTEMI) History of peritoneal dialysis History of TIAs Hyperkalemia Hypothyroid Migraine Morbid obesity Polyneuropathy PVD (peripheral vascular disease) SVT (supraventricular tachycardia) hx Surgical History H/O gastric bypass H/O total hip arthroplasty History of cholecystectomy History of colonoscopy with polypectomy "09/22/2014- adenomatous polyps" S/P hemodialysis catheter insertion with revisions in Left groin Family History Other Cancer Heart disease Hypertension Social History Smoking Status: Never smoker Second Hand Exposure: No; Hx Alcohol Use: Yes Hx Substance Use: No Preferred Language: Niuean Communication Ability: Effective Global Clinical Leader Required: No Beliefs That Will Affect Care: None Current Living Situation: Correction Current Living Situation Comment: [facility] Feels Safe at Home: Yes Assistive Devices: Glasses, Prosthesis, Walker and Wheelchair Allergies Allergies Allergy/AdvReac Type Severity Reaction Status Date / Time No Known Allergies Allergy Verified 09/18/21 18:35 Home Meds Home Medications Medication Instructions Recorded Confirmed apixaban 5 mg tablet (Eliquis) 5 mg PO BID #60 tab 02/17/19 09/18/21 midodrine 2.5 mg tablet 2.5 mg PO BID #30 tab 02/17/19 09/18/21 acetaminophen 325 mg tablet 650 mg PO Q6H PRN MDD 3 GRAMS/24 03/20/19 09/18/21 (Tylenol) HOURS atorvastatin 40 mg tablet (Lipitor) 40 mg PO HS 03/20/19 09/18/21 fludrocortisone 0.1 mg tablet 0.1 mg PO DAILY 03/20/19 09/18/21 loratadine 10 mg tablet (Claritin) 10 mg PO QPM 03/20/19 09/18/21 omeprazole 20 mg tablet,delayed 20 mg PO DAILY 03/20/19 09/18/21 release tramadol 50 mg tablet (Ultram) 50 mg PO 3XWK 03/20/19 09/18/21 levothyroxine 75 mcg tablet 75 mcg PO DAILYBB 04/27/19 09/18/21 sertraline 100 mg tablet 100 mg PO DAILY 04/27/19 09/18/21 sucralfate 1 gram tablet 1 g PO BID 10/12/19 09/18/21 Lactobacillus acidophilus 10,000 mmu cells PO BID 05/07/20 09/18/21 gabapentin 400 mg capsule 400 mg PO DAILY 05/07/20 09/18/21 latanoprost 0.005 % eye drops 1 drp OPL HS 07/04/20 09/18/21 (Xalatan) patiromer calcium sorbitex 8.4 16.8 g PO DAILY 07/04/20 09/18/21 gram oral powder packet (Veltassa) cinacalcet 30 mg tablet (Sensipar) 30 mg PO DAILY 07/25/20 09/18/21 albuterol sulfate 90 mcg/actuation 2 puff INHALATION Q4H PRN 05/05/21 09/18/21 aerosol inhaler (Ventolin HFA) lidocaine 5 % topical patch 1 patch TRANSDERMAL .EVERY 24 05/05/21 09/18/21 HOURS PRN quetiapine 25 mg tablet 25 mg PO HS 05/05/21 09/18/21 ondansetron HCl 4 mg tablet 4 mg PO Q6H PRN 08/03/21 09/18/21 oxycodone 5 mg tablet 5 mg PO Q4H PRN 08/03/21 09/18/21 rizatriptan 5 mg disintegrating See Rx Instructions .ROUTE .COMPLEX 09/18/21 09/18/21 tablet sertraline 25 mg tablet 25 mg PO DAILY 09/18/21 09/18/21 Previous Rx's Medication Instructions Recorded cadexomer iodine 0.9 % topical gel 40 g TOPICAL DAILY 30 Days #40 g 08/10/21 (Iodosorb) Results & Data (ED) Vital Signs Vital Signs - 24 hr 09/18/21 16:43 09/18/21 17:03 09/18/21 17:46 Temperature 36.3 C L Temperature Source Oral Pulse Rate 104 H Pulse Rate [Left Ear Lobe] 102 H 104 H Pulse Strength Normal Pulse Strength [Left Ear Lobe] Normal Normal Respiratory Rate 11 L 14 Respiratory Effort / Characteristics Non-Labored Spontaneous Non-Labored Spontaneous Respiratory Depth Normal Normal Blood Pressure [Right Thigh] 88/66 L Blood Pressure Mean [Right Thigh] 73 Blood Pressure Position [Right Thigh] Lying Pulse Oximetry 99 99 97 Oxygen Delivery Method Room Air Room Air Room Air Sepsis Recent Fever Within 48 Hours No Sepsis New/Unexplained Change in Mental Status No Sepsis Action Taken by Nursing No Action Required 09/18/21 18:17 Temperature Temperature Source Pulse Rate Pulse Rate [Left Ear Lobe] 101 H Pulse Strength Pulse Strength [Left Ear Lobe] Normal Respiratory Rate 14 Respiratory Effort / Characteristics Non-Labored Spontaneous Respiratory Depth Normal Blood Pressure [Right Thigh] 101/73 Blood Pressure Mean [Right Thigh] 82 Blood Pressure Position [Right Thigh] Lying Pulse Oximetry 96 Oxygen Delivery Method Room Air Sepsis Recent Fever Within 48 Hours Sepsis New/Unexplained Change in Mental Status Sepsis Action Taken by Correction Medications Current Medication List: was personally reviewed by me Laboratory Data Attestation: I reviewed the patient's lab results. Result diagrams: 09/18/21 16:50 09/18/21 16:50 Lab Results 09/18/21 09/18/21 09/18/21 Range/Units 16:50 16:50 16:50 WBC 8.01 (4.8-10.8) K/uL RBC 4.05 L (4.7-6.1) M/uL Hgb 11.7 L (14.0-18.0) g/dL Hct 36.3 L (42-52) % MCV 89.6 (80-100) fL MCH 28.9 (25-34) pg MCHC 32.2 (32-36) g/dL RDW Std Deviation 58.0 H (36.4-46.3) fL RDW Coeff of Nidia 18.0 H (11.5-14.5) % Plt Count 245 (130-400) K/uL MPV 12.0 H (7.4-10.4) fL Immature Gran % (Auto) 0.1 % Neut % (Auto) 83.7 % Lymph % (Auto) 6.9 % Kern % (Auto) 9.1 % Eos % (Auto) 0.1 % Baso % (Auto) 0.1 % Neut # (Auto) 6.70 H (1.4-6.5) K/uL Lymph # (Auto) 0.55 L (1.2-3.4) K/uL Kern # (Auto) 0.73 H (0.11-0.59) K/uL Eos # (Auto) 0.01 (0-0.5) K/uL Baso # (Auto) 0.01 (0-0.2) K/uL Immature Gran # (Auto) 0.01 (0.00-0.02) K/uL Polychromasia 1+ Microcytosis Present Tear Drop Cells 1+ Echinocytes 1+ PT (9.0-12.0) Seconds INR (0.9-1.1) APTT (21.0-31.0) Seconds PTT Ratio Sodium (136-145) mmol/L Potassium (3.5-5.1) mmol/L Chloride (98-107) mmol/L Carbon Dioxide (21-32) mmol/L Anion Gap (3-11) BUN (6-23) mg/dl Creatinine (0.6-1.4) mg/dl Est Cr Clr Drug Dosing ml/min Est GFR ( Amer) ml/min Est GFR (Non-Af Amer) ml/min BUN/Creatinine Ratio (10-20) Glucose (70-99(Fasting)) mg/dl POC Glucose (70-99) mg/dl Calcium (8.5-10.1) mg/dl Total Bilirubin (0.2-1.0) mg/dl AST (13-39) U/L ALT (7-52) U/L Alkaline Phosphatase (34-104) U/L Troponin I High Sens 56.4 H* (0-20) pg/ml Total Protein (6.0-8.3) gm/dl Albumin (3.4-5.0) gm/dl Globulin (2.5-4.0) gm/dl Albumin/Globulin Ratio (0.9-2) Lipase (11-82) U/L Blood Type O Positive Antibody Screen NEGATIVE 09/18/21 09/18/21 09/18/21 Range/Units 16:50 16:50 17:54 WBC (4.8-10.8) K/uL RBC (4.7-6.1) M/uL Hgb (14.0-18.0) g/dL Hct (42-52) % MCV (80-100) fL MCH (25-34) pg MCHC (32-36) g/dL RDW Std Deviation (36.4-46.3) fL RDW Coeff of Nidia (11.5-14.5) % Plt Count (130-400) K/uL MPV (7.4-10.4) fL Immature Gran % (Auto) % Neut % (Auto) % Lymph % (Auto) % Kern % (Auto) % Eos % (Auto) % Baso % (Auto) % Neut # (Auto) (1.4-6.5) K/uL Lymph # (Auto) (1.2-3.4) K/uL Kern # (Auto) (0.11-0.59) K/uL Eos # (Auto) (0-0.5) K/uL Baso # (Auto) (0-0.2) K/uL Immature Gran # (Auto) (0.00-0.02) K/uL Polychromasia Microcytosis Tear Drop Cells Echinocytes PT 13.8 H (9.0-12.0) Seconds INR 1.3 H (0.9-1.1) APTT 46.0 H* (21.0-31.0) Seconds PTT Ratio 1.7 Sodium 137 (136-145) mmol/L Potassium 3.4 L (3.5-5.1) mmol/L Chloride 97 L (98-107) mmol/L Carbon Dioxide 16 L (21-32) mmol/L Anion Gap 24 H (3-11) BUN 15 (6-23) mg/dl Creatinine 4.05 H (0.6-1.4) mg/dl Est Cr Clr Drug Dosing 20.2 ml/min Est GFR ( Amer) 17.0 ml/min Est GFR (Non-Af Amer) 14.7 ml/min BUN/Creatinine Ratio 3.7 L (10-20) Glucose 51 L* (70-99(Fasting)) mg/dl POC Glucose 49 L* (70-99) mg/dl Calcium 7.7 L (8.5-10.1) mg/dl Total Bilirubin 1.0 (0.2-1.0) mg/dl AST 98 H (13-39) U/L ALT 37 (7-52) U/L Alkaline Phosphatase 159 H (34-104) U/L Troponin I High Sens (0-20) pg/ml Total Protein 5.4 L (6.0-8.3) gm/dl Albumin 2.1 L (3.4-5.0) gm/dl Globulin 3.3 (2.5-4.0) gm/dl Albumin/Globulin Ratio 0.6 L (0.9-2) Lipase 12 (11-82) U/L Blood Type Antibody Screen Administered Medications Discontinued Medications Dextrose (Dextrose 50% 50 Ml Syringe) 50 ml IV NOW ONE Stop: 09/18/21 17:58 Last Admin: 09/18/21 18:02 Dose: 50 ml Documented by: [id number] Sodium Chloride (Nss) 500 mls @ 999 mls/hr IV .Q31M STA Stop: 09/18/21 16:57 Last Infusion: 09/18/21 17:45 Dose: 500 mls/hr Documented by: [id number] Admin: 09/18/21 17:11 Dose: 999 mls/hr Documented by: [id number] Pantoprazole Sodium 40 mg/ (Syringe) 10 mls @ 5 mls/min IV NOW ONE Stop: 09/18/21 16:28 Last Admin: 09/18/21 18:25 Dose: 5 mls/min Documented by: [id number] Famotidine (Pepcid 20mg Iv Push) 20 mg in 5 mls @ 2.5 mls/min IV NOW STA Stop: 09/18/21 16:28 Last Admin: 09/18/21 17:07 Dose: 2.5 mls/min Documented by: [id number] Imaging Data Radiologist's Impression: Abdomen/Pelvis CT 09/18/21 16:[address] WITHOUT CONTRAST CT DOSE: 1334.15 mGycm HISTORY: Acute bilateral flank pain with upper GI bleed flank pain, UGIB TECHNIQUE: Multiaxial CT images of the abdomen and pelvis were performed without contrast. A dose lowering technique was utilized adhering to the principles of ALARA. COMPARISON STUDY: Chest radiograph of same day, CT abdomen and pelvis 05/01/2018 FINDINGS: Study is limited without the use of contrast, upper extremity positioning and streak artifact from left hip total joint arthroplasty. Small layering pleural effusions with mild compressive bibasilar atelectasis. Additional patchy bibasilar groundglass densities are also noted. No pneumatosis or pneumoperitoneum. Extensive coronary artery calcifications. The unenhanced spleen, dystrophic pancreas, adrenal glands and liver appear unremarkable. Cholecystectomy. Cortical calcifications of the right kidney are again noted. The kidneys are atrophic bilaterally with renal vascular calcifications. 2 cm hyperdense exophytic lesion within the right kidney is unchanged on image 161 series 3. No urolith or obstructive uropathy identified. Decompressed urinary bladder with mild wall thickening. Prostamegaly. Small fat filled bilateral inguinal hernias. Atherosclerosis of the aorta. Intrahepatic IVC stent. There is a left femoral c atheter present distal tip terminating within the infrahepatic IVC. Mild distal esophageal wall thickening with small hiatal hernia. Postoperative changes of the stomach. There is no bowel obstruction or bowel wall thickening identified. No ascites or mesenteric inflammation. Normal appendix. Postoperative changes of the ventral abdominal wall. Degenerative changes of the spine, pelvis and right hip. No acute fracture identified. Numerous chronic appearing thoracic compression deformities. IMPRESSION: 1. No acute intra-abdominal or intrapelvic abnormality. 2. No urolith or obstructive uropathy. 3. Small pleural effusions with compressive bibasilar atelectasis. Additional bibasilar groundglass densities are suspicious for a mild infectious or inflammatory pneumonitis. 4. Unchanged 2 cm exophytic lesion of the right kidney suggestive of a proteinaceous or hemorrhagic cyst. 5. Additional findings as above. ACT 112: Negative or not required by law. The above report was generated using voice recognition software. It may contain grammatical, syntax or spelling errors. Electronically signed by: Rey Kulkarni M.D. 09/18/2021 6:23 PM Chest X-Ray 09/18/21 16:27 XR chest 1V portable HISTORY: 65 years-old Male SOB acute shortness of breath COMPARISON: CT abdomen and pelvis of same day, chest radiograph 05/05/2021 TECHNIQUE: Portable AP view of the chest FINDINGS: Cardiac mediastinal and hilar silhouettes are within normal limits. Small pleural effusions. Mild chronic interstitial coarsening with subsegmental bibasilar densities. Degenerative changes of the shoulders and spine. Calcifications of the carotid arteries. Cholecystectomy. IMPRESSION: Small pleural effusions with mild bibasilar atelectasis. ACT 112: Negative or not required by law. The above report was generated using voice recognition software. It may contain grammatical, syntax or spelling errors. Electronically signed by: Rey Kulkarni M.D. 09/18/2021 5:50 PM Discharge Plan Visit Data Chief Complaint: GI Bleed ED Provider: Cosme Sanchez Discharge Problem: Acute upper gastrointestinal bleeding, Hypoglycemia, Abdominal pain, Chronic kidney disease with end stage renal failure on dialysis Patient Disposition: Being Evaluated by Hospitalist Forms Stand Alone Forms: My [facility] Prescriptions Prescriptions: No Action oxycodone 5 mg tablet 5 mg PO Q4H PRN (Reason: .moderate to severe pain) RF: 0 ondansetron HCl 4 mg tablet 4 mg PO Q6H PRN (Reason: nausea and vomiting) RF: 0 Iodosorb 0.9 % gel 40 g topical DAILY 30 Days Qty: 40 RF: 1 Eliquis 5 mg tablet 5 mg PO BID Qty: 60 RF: 0 midodrine 2.5 mg tablet 2.5 mg PO BID Qty: 30 RF: 0 atorvastatin [Lipitor] 40 mg Tablet 40 mg PO HS RF: 0 tramadol [Ultram] 50 mg Tablet 50 mg PO 3XWK RF: 0 acetaminophen [Tylenol] 325 mg Tablet 650 mg PO Q6H MDD 3 GRAMS/24 HOURS PRN (Reason: pain/fever) RF: 0 fludrocortisone 0.1 mg Tablet 0.1 mg PO DAILY RF: 0 loratadine [Claritin] 10 mg Tablet 10 mg PO QPM RF: 0 omeprazole 20 mg Tablet,Delayed Release (Dr/Ec) 20 mg PO DAILY RF: 0 sucralfate 1 gram Tablet 1 g PO BID RF: 0 gabapentin 400 mg Capsule 400 mg PO DAILY RF: 0 Lactobacillus acidophilus Capsule 10,000 mmu cells PO BID RF: 0 latanoprost [Xalatan] 0.005 % Drops 1 drp OPL HS RF: 0 Veltassa 8.4 gram Powder In Packet 16.8 g PO DAILY RF: 0 sertraline 100 mg tablet 100 mg PO DAILY RF: 0 levothyroxine 75 mcg tablet 75 mcg PO DAILYBB RF: 0 cinacalcet [Sensipar] 30 mg Tablet 30 mg PO DAILY RF: 0 sertraline 25 mg tablet 25 mg PO DAILY RF: 0 rizatriptan 5 mg tablet,disintegrating See Rx Instructions .ROUTE .COMPLEX RF: 0 quetiapine 25 mg tablet 25 mg PO HS RF: 0 lidocaine 5 % adhesive patch,medicated 1 patch transdermal .EVERY 24 HOURS PRN (Reason: Pain) RF: 0 albuterol sulfate [Ventolin HFA] 90 mcg/actuation Hfa Aerosol Inhaler 2 puff INHALATION Q4H PRN (Reason: Shortness Of Breath) RF: 0 Referrals Referrals: Rabia Ho [Primary Care Provider] -
[2021-09-18 17:12] LABS: Hematocrit (blood only) 36.3 % (42-52); Hemoglobin 11.7 g/dL (14.0-18.0); Mean Corpuscular Hemoglobin 28.9 pg (25-34); Mean Corpuscular Hgb Conc 32.2 g/dL (32-36); Mean Corpuscular Volume 89.6 fL (80-100); Platelet Count 245 K/uL (130-400); Red Blood Count 4.05 M/uL (4.7-6.1); White Blood Count 8.01 K/uL (4.8-10.8)
[2021-09-18 17:41] LABS: Basophils # (auto) 0.01 K/uL (0-0.2); Basophils % (auto) 0.1 %; Echinocytes 1+; Eosinophils # (auto) 0.01 K/uL (0-0.5); Eosinophils % (auto) 0.1 %; Immature Granulocytes # (auto) 0.01 K/uL (0.00-0.02); Immature Granulocytes % (auto) 0.1 %; Lymphocytes # (auto) 0.55 K/uL (1.2-3.4); Lymphocytes % (auto) 6.9 %; Microcytosis Present; Monocytes # (auto) 0.73 K/uL (0.11-0.59); Monocytes % (auto) 9.1 %; Neutrophils % (auto) 83.7 %; Polychromasia 1+; Tear Drop Cells 1+
[2021-09-18 17:45] LABS: INR 1.3 (0.9-1.1); Partial Thromboplastin Ratio 1.7; Prothrombin Time 13.8 Seconds (9.0-12.0)
[2021-09-18 17:50] LABS: Albumin Globulin Ratio 0.6 (0.9-2); Albumin Level 2.1 gm/dl (3.4-5.0); BUN Creatinine Ratio 3.7 (10-20); Calcium 7.7 mg/dl (8.5-10.1); Creatinine Clr Calc Pharmacy 20.2 ml/min; Est GFR (Non-African American) 14.7 ml/min; Globulin 3.3 gm/dl (2.5-4.0); Total Protein 5.4 gm/dl (6.0-8.3)
--- NOTE | 2021-09-18 17:52 | XRay Report ---
XR chest 1V portable HISTORY: 65 years-old Male SOB acute shortness of breath COMPARISON: CT abdomen and pelvis of same day, chest radiograph 05/05/2021 TECHNIQUE: Portable AP view of the chest FINDINGS: Cardiac mediastinal and hilar silhouettes are within normal limits. Small pleural effusions. Mild chr onic interstitial coarsening with subsegmental bibasilar densities. Degenerative changes of the shoul ders and spine. Calcifications of the carotid arteries. Cholecystectomy. IMPRESSION: Small pleural effusions with mild bibasilar atelectasis. ACT 112: Negative or not required by law. The above report was generated using voice recognition software. It may contain grammatical, syntax o r spelling errors. Electronically signed by: Rey Kulkarni M.D. 09/18/2021 5:50 PM
[2021-09-18] MEDS ORDERED: DEXTROSE 50% 50 ML SYRINGE IV ONE (17:57)
[2021-09-18 18:10] LABS: Potassium 3.4 mmol/L (3.5-5.1)
--- NOTE | 2021-09-18 18:25 | CT Scan Report ---
ABDOMEN AND PELVIS CT WITHOUT CONTRAST CT DOSE: 1334.15 mGycm HISTORY: Acute bilateral flank pain with upper GI bleed flank pain, UGIB TECHNIQUE: Multiaxial CT images of the abdomen and pelvis were performed without contrast. A dose lo wering technique was utilized adhering to the principles of ALARA. COMPARISON STUDY: Chest radiograph of same day, CT abdomen and pelvis 05/01/2018 FINDINGS: Study is limited without the use of contrast, upper extremity positioning and streak artifa ct from left hip total joint arthroplasty. Small layering pleural effusions with mild compressive bib asilar atelectasis. Additional patchy bibasilar groundglass densities are also noted. No pneumatosis or pneumoperitoneum. Extensive coronary artery calcifications. The unenhanced spleen, dystrophic pancreas, adrenal glands and liver appear unremarkable. Cholecystec [place]. Cortical calcifications of the right kidney are again noted. The kidneys are atrophic bilaterally wit h renal vascular calcifications. 2 cm hyperdense exophytic lesion within the right kidney is unchange d on image 161 series 3. No urolith or obstructive uropathy identified. Decompressed urinary bladder with mild wall thickening. Prostamegaly. Small fat filled bilateral inguinal hernias. Atherosclerosis of the aorta. Intrahepatic IVC stent. There is a left femoral catheter present distal tip terminatin g within the infrahepatic IVC. Mild distal esophageal wall thickening with small hiatal hernia. Postoperative changes of the stomach . There is no bowel obstruction or bowel wall thickening identified. No ascites or mesenteric inflamm ation. Normal appendix. Postoperative changes of the ventral abdominal wall. Degenerative changes of the spine, pelvis and right hip. No acute fracture identified. Numerous chronic appearing thoracic co mpression deformities. IMPRESSION: 1. No acute intra-abdominal or intrapelvic abnormality. 2. No urolith or obstructive uropathy. 3. Small pleural effusions with compressive bibasilar atelectasis. Additional bibasilar groundglass d ensities are suspicious for a mild infectious or inflammatory pneumonitis. 4. Unchanged 2 cm exophytic lesion of the right kidney suggestive of a proteinaceous or hemorrhagic c yst. 5. Additional findings as above. ACT 112: Negative or not required by law. The above report was generated using voice recognition software. It may contain grammatical, syntax o r spelling errors. Electronically signed by: Rey Kulkarni M.D. 09/18/2021 6:23 PM
[2021-09-18] MEDS ORDERED: cefTRIAXone SODIUM 1,000 MG/50 ML BAG IV STA (18:34)
--- NOTE | 2021-09-18 19:14 | History & Physical Report ---
Date of Service September 18, 2021 Assessment & Plan (1) Chronic kidney disease with end stage renal failure on dialysis: Plan: 65 year old male with ESRD on MWF hemodialysis, afib, PAD, BPH, GERD, DM, depression, CAD, CVA, anemia who presents w/ melena, fatigue, and generalized malaise x several days. Vitals were stable at time of my assessment ~945pm w/ slight tachycardia. - Patient had refused 09/18/21 dialysis session. This is likely contributing to his lab abnormalities. Consult [facility] nephrology for nonemergent hemodialysis. vbg ph 7.16 noted. - Afebrile, benign exam, and no leukocytosis. The missed dialysis session would not alone explain the several days of malaise. Continue infectious workup. Blood cultures ordered. - Repeat BMP in 4 hours - Lactate 3.1, repeat pending - K 3.2, will not be repleting in setting of ESRD. HS trop 56.4, will trend. AG 24. - Because of the significant acidosis and high risk of decompensation, consulting ICU (2) Lactic acidosis: Plan: - follow. 3.1->1.6->2.5 - vbg ph 7.16. inadequate resp compensation as patient's rr was low teens. no tachypnea on exam - provided 1 amp of bicarb. ordered bicarb drip - considered uremia, missed dialysis (3) Ground glass opacity present on imaging of lung: Plan: - per CT chest. "Small pleural effusions with compressive bibasilar atelectasis. Additional bibasilar groundglass densities are suspicious for a mild infectious or inflammatory pneumonitis." - if hypoxic, consider treating (4) Acute upper gastrointestinal bleeding: Plan: - hold home eliquis. hx of upper GI ulceration in 2018, hx of gastric bypass. per nursing facility, heme occult pos - consider GI consult after resolution of lactic acidosis (5) PAD (peripheral artery disease): Plan: - chronic (6) Elevated troponin I level: Plan: - trend (7) BPH (benign prostatic hyperplasia): Plan: - home regimen (8) GERD (gastroesophageal reflux disease): Plan: - home regimen (9) Hemodialysis patient: Plan: - MWF schedule, follows [facility] nephro - continue home cincalcet, veltassa, (10) Diabetes mellitus with diabetic polyneuropathy: Plan: - hypoglycemia at arrival to 49. Improved after IV dextrose 50 - per review, last a1c 4.8 08/16/21 - patient is not on medication regimen for diabetes (11) Orthostatic hypotension dysautonomic syndrome: Plan: - continue home midodrine and fludrocortisone (12) Hypothyroid: Plan: - home regimen (13) History of non-ST elevation myocardial infarction (NSTEMI): Plan: - noted (14) CAD (coronary artery disease): Plan: - noted. continue home statin (15) History of CVA (cerebrovascular accident): Plan: -noted (16) History of GI bleed: Plan: - noted, 2017 Plan: FEN/GI: NPO ppx: scds only code: full dispo: ICU History of Present Illness Chief Complaint: generalized weakness, melena Primary Care Provider: [facility] 65 year old male with ESRD on MWF dialysis, afib, PAD, BPH, GERD, DM, depression, CAD, CVA, anemia who presents from [facility] w/ dark, melena appearing stools. He has had poor PO intake x 3-4 days per facility staff. He refused his PO medications yesterday because of generalized malaise. He did take his Eliquis yesterday. Patient refused dialysis today becase he was not feeling well. Fatigue. No cp, sob, archibald, f/c, urinary sxs, abd pain. + diarrhea and melena since yesterday. Hypoglycemic to 49 at ED arrival, improved after. Last dose of Eliquis PM of 09/17/21. He states he refused some meds yeste rday because he did not feel well. Similarly, he refused his dialysis session today because of the same reason. Patient states he makes a small amount of urine at baseline. ED course: 500 mL NSS. ROcephin. PPI and H2 isi. Allergies Allergy/AdvReac Type Severity Reaction Status Date / Time No Known Allergies Allergy Verified 09/18/21 18:35 Home Medications Medication Instructions Recorded Confirmed Type apixaban 5 mg tablet (Eliquis) 5 mg PO BID #60 tab 02/17/19 09/18/21 History midodrine 2.5 mg tablet 2.5 mg PO BID #30 tab 02/17/19 09/18/21 History acetaminophen 325 mg tablet 650 mg PO Q6H PRN MDD 3 GRAMS/24 03/20/19 09/18/21 History (Tylenol) HOURS atorvastatin 40 mg tablet (Lipitor) 40 mg PO HS 03/20/19 09/18/21 History fludrocortisone 0.1 mg tablet 0.1 mg PO DAILY 03/20/19 09/18/21 History loratadine 10 mg tablet (Claritin) 10 mg PO QPM 03/20/19 09/18/21 History omeprazole 20 mg tablet,delayed 20 mg PO DAILY 03/20/19 09/18/21 History release tramadol 50 mg tablet (Ultram) 50 mg PO 3XWK 03/20/19 09/18/21 History levothyroxine 75 mcg tablet 75 mcg PO DAILYBB 04/27/19 09/18/21 History sertraline 100 mg tablet 100 mg PO DAILY 04/27/19 09/18/21 History sucralfate 1 gram tablet 1 g PO BID 10/12/19 09/18/21 History Lactobacillus acidophilus 10,000 mmu cells PO BID 05/07/20 09/18/21 History gabapentin 400 mg capsule 400 mg PO DAILY 05/07/20 09/18/21 History latanoprost 0.005 % eye drops 1 drp OPL HS 07/04/20 09/18/21 History (Xalatan) patiromer calcium sorbitex 8.4 16.8 g PO DAILY 07/04/20 09/18/21 History gram oral powder packet (Veltassa) cinacalcet 30 mg tablet (Sensipar) 30 mg PO DAILY 07/25/20 09/18/21 History albuterol sulfate 90 mcg/actuation 2 puff INHALATION Q4H PRN 05/05/21 09/18/21 History aerosol inhaler (Ventolin HFA) lidocaine 5 % topical patch 1 patch TRANSDERMAL .EVERY 24 05/05/21 09/18/21 History HOURS PRN quetiapine 25 mg tablet 25 mg PO HS 05/05/21 09/18/21 History ondansetron HCl 4 mg tablet 4 mg PO Q6H PRN 08/03/21 09/18/21 History oxycodone 5 mg tablet 5 mg PO Q4H PRN 08/03/21 09/18/21 History cadexomer iodine 0.9 % topical gel 40 g TOPICAL DAILY 30 Days #40 g 08/10/21 09/18/21 Rx (Iodosorb) rizatriptan 5 mg disintegrating See Rx Instructions .ROUTE .COMPLEX 09/18/21 09/18/21 History tablet sertraline 25 mg tablet 25 mg PO DAILY 09/18/21 09/18/21 History Past Med/Surg History Medical History Amputation of left lower extremity below knee Anemia Atrial fibrillation Bradycardia with less than 30 beats per minute hx CAD (coronary artery disease) "per records- had acute [place] in 07/2001 and 03/2010. 40% LAD and 30% circ obstruction noted in records- unknown date of cath. " Depression Diabetes mellitus with diabetic polyneuropathy Diabetic retinopathy Dialysis patient AT [facility] EVERY SATURDAY/SAT/SATURDAY End stage renal disease Failed attempted surgical procedure attempted pacemaker insertion 02/2018 for bradycardia per medical notes ([facility]) Fall Fluency disorder following cerebrovascular accident patient Alert & Oriented x3 (per staff at [facility]) GERD (gastroesophageal reflux disease) Gout Hemodialysis patient History of Clostridium difficile colitis History of COVID-19 UNKNOWN DATE, FROM [facility] History of CVA (cerebrovascular accident) date unknown per [facility] History of GI bleed "EGD 02/08/15- ulceration at gastrojejunal anastomosis from bastric bypass Colonoscopy 02/08/15- internal hemorrhoids" History of methicillin resistant staphylococcus aureus (MRSA) History of non-ST elevation myocardial infarction (NSTEMI) History of peritoneal dialysis History of TIAs Hyperkalemia Hypothyroid Migraine Morbid obesity Polyneuropathy PVD (peripheral vascular disease) SVT (supraventricular tachycardia) hx Surgical History H/O gastric bypass H/O total hip arthroplasty History of cholecystectomy History of colonoscopy with polypectomy "09/22/2014- adenomatous polyps" S/P hemodialysis catheter insertion with revisions in Left groin Family History Other Cancer Heart disease Hypertension Social History Smoking Status: Unknown if ever smoked Second Hand Exposure: No; Do You Dip or Chew Tobacco: No; Tobacco Cessation Education Requested by Patient: No Hx Alcohol Use: No Hx Substance Use: No Preferred Language: Ukrainian Communication Ability: Effective Printed [employer] Plasma Etcher Required: No Beliefs That Will Affect Care: None Current Living Situation: Shelter Current Living Situation Comment: [facility] Other Information That Helps Us Care for You: No Feels Safe at Home: Yes Assistive Devices: Mechanical Lift Review of Systems Review of Systems: All systems reviewed & are unremarkable except as noted in HPI & below paresthesias of feet, not new mild blurry vision Physical Exam Physical Exam: General: A&O to person, place, and context. For year, he answered 2018. Answering questions appropriately. NAD. Cooperative. HEENT: Atraumatic, normocephalic. EOMI. Pulm: CTAB. ant-wheezes, -rales, -rhonchi. No respiratory distress. Cardiac: RRR, -mrg. Radial pulses intact and symmetrical. No LE edema. Abdominal: Nontender, nondistended, soft. Msk: Moving all extremities. L knee stump. Integ: Mild ecchymosis of L forearm. Several scabs at R ankle and L forearm. Results & Data Results & Data ([facility]) Vital Signs (Past 12 Hours) Vital Signs Temp Pulse Pulse Resp BP Pulse Ox 09/18/21 18:17 101 H 14 101/73 96 09/18/21 17:46 104 H 14 88/66 L 97 09/18/21 17:03 99 09/18/21 16:43 36.3 C L 104 H 102 H 11 L 99 Laboratory Results Initial labs. No leukocytosis. Hb 11.5 stable. INR 1.3. VBG ph 7.16. pCO2 50. K 3.4. AG 24. Lactate 3.1->1.6->2.5. Trop 56.4 09/18/21 19:33 09/18/21 19:33 09/19/21 02:55 Cardiac Enzymes 09/18/21 09/18/21 09/19/21 Range/Units 16:50 19:33 01:01 AST 98 H 90 H 103 H (13-39) U/L Coagulation 09/18/21 Range/Units 16:50 PT 13.8 H (9.0-12.0) Seconds APTT 46.0 H* (21.0-31.0) Seconds CBC 09/18/21 09/18/21 09/19/21 Range/Units 16:50 19:33 02:55 WBC 8.01 7.82 8.45 (4.8-10.8) K/uL RBC 4.05 L 3.96 L 4.09 L (4.7-6.1) M/uL Hgb 11.7 L 11.5 L 12.2 L (14.0-18.0) g/dL Hct 36.3 L 36.2 L 37.4 L (42-52) % Plt Count 245 228 235 (130-400) K/uL Neut # (Auto) 6.70 H 6.77 H 7.30 H (1.4-6.5) K/uL Lymph # (Auto) 0.55 L 0.41 L 0.51 L (1.2-3.4) K/uL [place] # (Auto) 0.73 H 0.63 H 0.62 H (0.11-0.59) K/uL Eos # (Auto) 0.01 0.00 0.00 (0-0.5) K/uL Baso # (Auto) 0.01 0.00 0.01 (0-0.2) K/uL Comprehensive Metabolic Panel 09/18/21 09/18/21 09/19/21 Range/Units 16:50 19:33 01:01 Sodium 137 137 139 (136-145) mmol/L Potassium 3.4 L 3.2 L 3.6 (3.5-5.1) mmol/L Chloride 97 L 98 98 (98-107) mmol/L Carbon Dioxide 16 L 16 L 16 L (21-32) mmol/L BUN 15 15 16 (6-23) mg/dl Creatinine 4.05 H 4.02 H 4.10 H (0.6-1.4) mg/dl Glucose 51 L* 129 H 108 H (70-99(Fasting)) mg/dl Calcium 7.7 L 7.4 L 7.7 L (8.5-10.1) mg/dl AST 98 H 90 H 103 H (13-39) U/L ALT 37 35 39 (7-52) U/L Alkaline Phosphatase 159 H 147 H 153 H (34-104) U/L Total Protein 5.4 L 5.0 L 5.3 L (6.0-8.3) gm/dl Albumin 2.1 L 2.0 L 2.2 L (3.4-5.0) gm/dl Intake and Output 09/18/21 09/18/21 09/19/21 14:59 22:59 06:59 Intake Total 550 / 570 20 / 570 Output Total 0 / 0 Balance 550 / 570 20 / 570 Intake: IV 550 / 550 Sodium Chloride 0.9% 500 ml @ 500 / 500 999 mls/hr IV .Q31M STA Rx#: [id number] cefTRIAXone SODIUM 1,000 mg In 50 / 50 50 ml @ 100 mls/hr IV NOW STA Rx#:[id number] Oral 20 Output: Urine 0 / 0 Other: Weight 88.5 kg 88 kg Weight Measurement Method Built in [facility] Built in [facility] Patient Weight 09/19/21 06:59 Weight 88 kg Diagnostic Findings Abdomen/Pelvis CT 09/18/21 16:[address] WITHOUT CONTRAST CT DOSE: 1334.15 mGycm HISTORY: Acute bilateral flank pain with upper GI bleed flank pain, UGIB TECHNIQUE: Multiaxial CT images of the abdomen and pelvis were performed without contrast. A dose lowering technique was utilized adhering to the principles of ALARA. COMPARISON STUDY: Chest radiograph of same day, CT abdomen and pelvis 05/01/2018 FINDINGS: Study is limited without the use of contrast, upper extremity positioning and streak artifact from left hip total joint arthroplasty. Small layering pleural effusions with mild compressive bibasilar atelectasis. Additional patchy bibasilar groundglass densities are also noted. No pneumatosis or pneumoperitoneum. Extensive coronary artery calcifications. The unenhanced spleen, dystrophic pancreas, adrenal glands and liver appear unremarkable. Cholecystectomy. Cortical calcifications of the right kidney are again noted. The kidneys are atrophic bilaterally with renal vascular calcifications. 2 cm hyperdense exophytic lesion within the right kidney is unchanged on image 161 series 3. No urolith or obstructive uropathy identified. Decompressed urinary bladder with mild wall thickening. Prostamegaly. Small fat filled bilateral inguinal hernias. Atherosclerosis of the aorta. Intrahepatic IVC stent. There is a left femoral catheter present distal tip terminating within the infrahepatic IVC. Mild distal esophageal wall thickening with small hiatal hernia. Postoperative changes of the stomach. There is no bowel obstruction or bowel wall thickening identified. No ascites or mesenteric inflammation. Normal appendix. Postoperative changes of the ventral abdominal wall. Degenerative changes of the spine, pelvis and right hip. No acute fracture identified. Numerous chronic appearing thoracic compression deformities. IMPRESSION: 1. No acute intra-abdominal or intrapelvic abnormality. 2. No urolith or obstructive uropathy. 3. Small pleural effusions with compressive bibasilar atelectasis. Additional bibasilar groundglass densities are suspicious for a mild infectious or in flammatory pneumonitis. 4. Unchanged 2 cm exophytic lesion of the right kidney suggestive of a prote inaceous or hemorrhagic cyst. 5. Additional findings as above. ACT 112: Negative or not required by law. The above report was generated using voice recognition software. It may contain grammatical, syntax or spelling errors. Electronically signed by: Rey Kulkarni M.D. 09/18/2021 6:23 PM Chest X-Ray 09/18/21 16:27 XR chest 1V portable HISTORY: 65 years-old Male SOB acute shortness of breath COMPARISON: CT abdomen and pelvis of same day, chest radiograph 05/05/2021 TECHNIQUE: Portable AP view of the chest FINDINGS: Cardiac mediastinal and hilar silhouettes are within normal limits. Small pleural effusions. Mild chronic interstitial coarsening with subsegmental bibasilar densities. Degenerative changes of the shoulders and spine. C alcifications of the carotid arteries. Cholecystectomy. IMPRESSION: Small pleural effusions with mild bibasilar atelectasis. ACT 112: Negative or not required by law. The above report was generated using voice recognition software. It may contain grammatical, syntax or spelling errors. Electronically signed by: Rey Kulkarni M.D. 09/18/2021 5:50 PM ECG Additional Comments: ecg per my read. low voltage. atrial fibrillation w/ rate ~100. Code Status & VTE Plan Code Status full, reviewed polst form and confirmed by patient VTE Prophylaxis Plan VTE Prophylaxis will be ordered: Yes Reason for no VTE drug order: Contraindicated (melena) Supervising Physician Co-Signing Physician Notes Patient seen and examined, chart reviewed, case discussed with Dr. Monteiro and I agree with his assessment and plan as documented above. In brief, patient is a 65-year-old male with multiple medical problems, ESRD on hemodialysis. Missed dialysis today. Feeling unwell for the past several daysdark stools, malaise, fatigue and diarrhea as well as decreased oral intake. Patient missed his medications for the last several days as well. In the ER patient with anion gap metabolic acidosis. On exam patient is resting comfortably. Chronically ill in appearance. Uncooperative overall with exam, did not want to be bothered Status post right BKA Several skin lesions noted on arms without evidence of active bleeding or secondary infection Dry mucous membranes + S1, S2, irregularly irregular and tachycardic Lungs with diminished breath sounds Abdomen positive bowel sounds, soft, nontender/nondistended Labs and images reviewed Assessment/plan 65-year-old male presents with complaint of dark stools, malaise, fatigue and diarrhea, decreased oral intake, no medications for the past several days, missed hemodialysis today. He has high gap metabolic acidosis with elevated lactate as well. Admit to MICU Bicarbonate drip ordered Monitor chemistry panel every 4 Repeat lactate Nephrology consultation appreciated Follow cultures Remainder as above Resident Activity Tracking Resident Involvement: Resident Care Provided Care Provided: Adult Hospital Medicine (1) BPH (benign prostatic hyperplasia) Lower urinary tract symptom presence: symptoms absent Qualified Code(s): N40.0 - Benign prostatic hyperplasia without lower urinary tract symptoms (2) CAD (coronary artery disease) Associated angina: without angina Coronary Disease-Associated Artery/Lesion t ype: unspecified vessel or lesion type [place] vs. 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
[2021-09-18 19:59] LABS: Hematocrit (blood only) 36.2 % (42-52); Hemoglobin 11.5 g/dL (14.0-18.0); Immature Granulocytes # (auto) 0.01 K/uL (0.00-0.02); Immature Granulocytes % (auto) 0.1 %; Lymphocytes # (auto) 0.41 K/uL (1.2-3.4); Lymphocytes % (auto) 5.2 %; Mean Corpuscular Hgb Conc 31.8 g/dL (32-36); Mean Corpuscular Volume 91.4 fL (80-100); Mean Platelet Volume 12.4 fL (7.4-10.4); Monocytes # (auto) 0.63 K/uL (0.11-0.59); Monocytes % (auto) 8.1 %; Neutrophils # (auto) 6.77 K/uL (1.4-6.5); Neutrophils % (auto) 86.6 %; Platelet Count 228 K/uL (130-400); RDW Coefficient of Variation 17.9 % (11.5-14.5); RDW Standard Deviation 58.3 fL (36.4-46.3); Red Blood Count 3.96 M/uL (4.7-6.1); White Blood Count 7.82 K/uL (4.8-10.8)
[2021-09-18 20:24] LABS: Albumin Globulin Ratio 0.7 (0.9-2); BUN Creatinine Ratio 3.7 (10-20); Bilirubin,Total 0.9 mg/dl (0.2-1.0); Calcium 7.4 mg/dl (8.5-10.1); Creatinine Clr Calc Pharmacy 20.3 ml/min; Est GFR (African American) 17.2 ml/min; Est GFR (Non-African American) 14.8 ml/min; Magnesium 1.9 mg/dl (1.7-2.4); Phosphorus 2.4 mg/dl (2.5-4.9); Potassium 3.2 mmol/L (3.5-5.1)
[2021-09-18 21:12] LABS: HCO3 VBG 17 mmol/L; Oxygen Saturation VBG < 60.0 %; PCO2 VBG 50 mmHg (38-50); PO2 VBG 31 mmHg; pH VBG 7.16 (7.36-7.41)
[2021-09-18] MEDS ORDERED: STAT IV STA (21:21)
[2021-09-18] MEDS ORDERED: SODIUM BICARB 8.4% INJ 50 MEQ/50 ML SYR IV STA (21:24)
[2021-09-18] MEDS ORDERED: SODIUM BICARBONATE 8.4% 150 MEQ in DEXTROSE 5% 1,000 ML IV SCH (21:30)
[2021-09-19] MEDS ORDERED: ICU PROTOCOL FOR HYPERGLYCEMIA PRN (00:11)
--- NOTE | 2021-09-19 00:15 | Billing Data ---
Date of Service September 18, 2021 Coding Level of Care Code Critical Care 1st - mins
[2021-09-19] MEDS ORDERED: STAT IV Infusion **Titration per Protocol STA (00:32)
[2021-09-19] MEDS ORDERED: ONDANSETRON 4 MG OD TAB PO PRN (00:35)
[2021-09-19] MEDS ORDERED: ALBUTEROL HFA 8 GM INHALER INH PRN (00:35)
[2021-09-19] MEDS ORDERED: LIDOCAINE 5% 1 PATCH TD PRN (00:35)
[2021-09-19] MEDS ORDERED: ACETAMINOPHEN 325 MG TAB PO PRN (00:35)
[2021-09-19] MEDS ORDERED: NOREPINEPHRINE/D5W 8 MG/508 ML IV ONE (00:36)
[2021-09-19] MEDS ORDERED: GLUCAGON FOR INJ 1 MG VIAL SQ PRN (00:39)
[2021-09-19] MEDS ORDERED: DEXTROSE 50% 50 ML SYRINGE IV PRN (00:39)
[2021-09-19] MEDS ORDERED: GLUCOSE 10 TABS/TUBE PO PRN (00:39)
[2021-09-19] MEDS ORDERED: GLUCOSE 40% GEL 15 GM TUBE PO PRN (00:39)
[2021-09-19] MEDS ORDERED: CARBOHYDRATES FOR HYPOGLYCEMIA PO PRN (00:39)
[2021-09-19] MEDS: NOREPINEPHRINE/D5W 8 MG/508 ML BAG IV SCH ×2 (00:50→23:57)
[2021-09-19] MEDS ORDERED: FLUDROCORTISONE ACETATE 0.1 MG TAB PO STA (00:56)
[2021-09-19] MEDS ORDERED: MIDODRINE HCL 2.5 MG TAB PO STA (00:59)
[2021-09-19 01:20] LABS: Base Excess VBG -6.5 mEq/L; HCO3 VBG 18 mmol/L; PCO2 VBG 35 mmHg (38-50); PO2 VBG 25 mmHg; pH VBG 7.34 (7.36-7.41)
[2021-09-19 01:40] LABS: Albumin Globulin Ratio 0.7 (0.9-2); Albumin Level 2.2 gm/dl (3.4-5.0); BUN Creatinine Ratio 3.9 (10-20); Bilirubin,Total 0.9 mg/dl (0.2-1.0); Calcium 7.7 mg/dl (8.5-10.1); Creatinine Clr Calc Pharmacy 19.9 ml/min; Est GFR (African American) 16.8 ml/min; Est GFR (Non-African American) 14.5 ml/min; Globulin 3.1 gm/dl (2.5-4.0); Phosphorus 2.4 mg/dl (2.5-4.9); Potassium 3.6 mmol/L (3.5-5.1); Total Protein 5.3 gm/dl (6.0-8.3)
[2021-09-19 01:44] LABS: Oxygen Saturation VBG < 60.0 %
--- NOTE | 2021-09-19 01:53 | Critical Care Consultation ---
Date of Consultation September 19, 2021 Assessment & Plan (1) Admitted to intensive care unit: Reason Critically Ill: 65-year-old male with end-stage renal disease and multiple comorbidities presenting with concerns for melanotic stools and hypotension. NEURO - * CAM ICU: NEGATIVE CARDIAC/VASCULAR - * Hypotension: * Likely degree of acute on chronic kidney end-stage renal disease patient. Patient does take midodrine 2.5 mg twice daily on days of dialysis. We will start the midodrine scheduled daily. Patient received IV fluids in the emergency department which did seem to help with labile pressures. Currently on bicarb drip at this time. We will start Levophed if needed. * Vascular disaster: * Patient has essentially no vascular access other than the HD catheter in the LEFT groin. Review of documentation reveals the patient has had failed procedures in the past including pacemaker placement secondary to no central access. Currently, the patient has a an 18-gauge external jugular catheter. In the event of loss of sight, may need to contact vascular surgery versus nephrology for possible use of indwelling HD cath. * EKG: A. fib at a rate of [address] elevations noted. QTc 464 ms. * Monitor on telemetry. RESPIRATORY - * Question of infiltrative change on chest x-ray. * Received initial dose of Rocephin. * Saturating fine on room air. GI/NUTRITION - * Melanotic stools: * Reported by correction staff. * H&H stable. * Protonix twice daily. * Monitor for worsening signs/symptoms of bleeding. Certainly concerning the patient on apixaban RENAL/LYTES - * End-stage renal disease: * Patient has refused dialysis recently. * Consult nephrology for ongoing management. * HAGMA: * Likely secondary to chronic kidney disease as well as lactic acidosis * Lactate trending down. * Will discontinue bicarb drip when pH appropriate. - * Anuric ENDO - * DMII, Hypothyroid * BSGs per unit protocol. ISS --> gtt per unit policy. HEME - * Stable H&H * Monitor for drop w/ concerns of ?? GIB ID - * ??Pneumonia on CXR * Less likely the case. * Received Rocphin in the ED. * PCT wnl * Multiple wounds throughout. * Continue w/ rocephin for now. * Blood Cx Pending LINES/IV ACCESS - * LEFT EJ * LEFT Femoral HD Cath DVT PROPHYLAXIS - * Apixaban * SCDs I have personally spent 45 minutes of critical care time in the direct management of this patient. This is a life/limb threatening event. This includes time spent evaluating patient, direct bedside care, chart review, placing orders, interpretation of diagnostic studies, discussion with consultants, patient, and family members, as well as other required patient management activities. This time is exclusive of all separately billable procedures, and teaching time and separate from and in addition to any other critical care service time. Thank you for allowing us to participate in the care of this patient. Please refer to my attending physician's documentation for any further recommendations. (2) Hypotension: (3) Chronic kidney disease with end stage renal failure on dialysis: (4) Hypoglycemia: (5) Lactic acidosis: (6) PAD (peripheral artery disease): Supervising Physician Co-Signing Physician Notes Patient separately seen and examined from [facility] this morning. Patient is agitated and apparently was noncompliant with his medications. He does not appear to be in any significant distress. He is requiring low-dose Levophed through peripher ally inserted internal jugular IV. No clear signs of sepsis, but he did come in with shock like picture so we will treat empirically with broad-spectrum antibiotics. Wean Levophed to maintain mean arterial pressure greater than 65 mmHg. MRSA screen is positive. We will start vancomycin. We will also add cefepime at this time. We will give a small bolus of 250 mL albumin. Continue with oral midodrine. Nephrology consulted. CT abdomen without clear source of intra-abdominal infection. Bibasilar groundglass opacity seen concerning for possible pneumonitis. Suspect likely aspiration. TSH and random cortisol ordered. History of Present Illness Attending Physician: Whitley Oropeza DO History of Present Illness Patient is an unfortunate 65-year-old male with an extensive past medical history including end-stage renal disease on hemodialysis Saturday//Saturday, A. fib anticoagulated on apixaban, chronic anemia, coronary artery disease, depression, diabetes, hypothyroidism, etc. Patient has resided at [facility] most recently. Apparently, the patient has refused medications for the last few days and refused dialysis today. He was directed to the emergency department for melanotic stools and decreased blood pressure. On evaluation, patient had a stable H&H. Was noted to have a high anion gap metabolic acidosis and elevated lactic acid. Was started on a bicarb drip. Received Rocephin empirically. Upon evaluation in the ICU, the patient is awake and alert. He is an unpleasant gentleman who does not wish to answer questions. He is able to provide the year and location. Otherwise, he is inconsistent with some of his answers. Patient states that he stopped taking his medications because "I do not give a F." When asked to elaborate on this, patient was unwilling to. I did question if the patient was interested in proceeding with a more appropriate CODE STATUS to reflect this which he declines and reports that he still wishes to be full code. Otherwise, patient did not contribute to HPI. Allergies Allergy/AdvReac Type Severity Reaction Status Date / Time No Known Allergies Allergy Verified 09/18/21 18:35 Home Medications Medication Instructions Recorded Confirmed Type apixaban 5 mg tablet (Eliquis) 5 mg PO BID #60 tab 02/17/19 09/18/21 History midodrine 2.5 mg tablet 2.5 mg PO BID #30 tab 02/17/19 09/18/21 History acetaminophen 325 mg tablet 650 mg PO Q6H PRN MDD 3 GRAMS/24 03/20/19 09/18/21 History (Tylenol) HOURS atorvastatin 40 mg tablet (Lipitor) 40 mg PO HS 03/20/19 09/18/21 History fludrocortisone 0.1 mg tablet 0.1 mg PO DAILY 03/20/19 09/18/21 History loratadine 10 mg tablet (Claritin) 10 mg PO QPM 03/20/19 09/18/21 History omeprazole 20 mg tablet,delayed 20 mg PO DAILY 03/20/19 09/18/21 History release tramadol 50 mg tablet (Ultram) 50 mg PO 3XWK 03/20/19 09/18/21 History levothyroxine 75 mcg tablet 75 mcg PO DAILYBB 04/27/19 09/18/21 History sertraline 100 mg tablet 100 mg PO DAILY 04/27/19 09/18/21 History sucralfate 1 gram tablet 1 g PO BID 10/12/19 09/18/21 History Lactobacillus acidophilus 10,000 mmu cells PO BID 05/07/20 09/18/21 History gabapentin 400 mg capsule 400 mg PO DAILY 05/07/20 09/18/21 History latanoprost 0.005 % eye drops 1 drp OPL HS 07/04/20 09/18/21 History (Xalatan) patiromer calcium sorbitex 8.4 16.8 g PO DAILY 07/04/20 09/18/21 History gram oral powder packet (Veltassa) cinacalcet 30 mg tablet (Sensipar) 30 mg PO DAILY 07/25/20 09/18/21 History albuterol sulfate 90 mcg/actuation 2 puff INHALATION Q4H PRN 05/05/21 09/18/21 History aerosol inhaler (Ventolin HFA) lidocaine 5 % topical patch 1 patch TRANSDERMAL .EVERY 24 05/05/21 09/18/21 History HOURS PRN quetiapine 25 mg tablet 25 mg PO HS 05/05/21 09/18/21 History ondansetron HCl 4 mg tablet 4 mg PO Q6H PRN 08/03/21 09/18/21 History oxycodone 5 mg tablet 5 mg PO Q4H PRN 08/03/21 09/18/21 History cadexomer iodine 0.9 % topical gel 40 g TOPICAL DAILY 30 Days #40 g 08/10/21 09/18/21 Rx (Iodosorb) rizatriptan 5 mg disintegrating See Rx Instructions .ROUTE .COMPLEX 09/18/21 09/18/21 History tablet sertraline 25 mg tablet 25 mg PO DAILY 09/18/21 09/18/21 History Patient History Medical History Amputation of left lower extremity below knee Anemia Atrial fibrillation Bradycardia with less than 30 beats per minute hx CAD (coronary artery disease) "per records- had acute [place] in 07/2001 and 03/2010. 40% LAD and 30% circ obstruction noted in records- unknown date of cath. " Depression Diabetes mellitus with diabetic polyneuropathy Diabetic retinopathy Dialysis patient AT [facility] EVERY SATURDAY/SAT/SATURDAY End stage renal disease Failed attempted surgical procedure attempted pacemaker insertion 02/2018 for bradycardia per medical notes ([facility]) Fall Fluency disorder following cerebrovascular accident patient Alert & Oriented x3 (per staff at [facility]) GERD (gastroesophageal reflux disease) Gout Hemodialysis patient History of Clostridium difficile colitis History of COVID-19 UNKNOWN DATE, [facility] History of CVA (cerebrovascular accident) date unknown per [facility] History of GI bleed "EGD 02/08/15- ulceration at gastrojejunal anastomosis from bastric bypass Colonoscopy 02/08/15- internal hemorrhoids" History of methicillin resistant staphylococcus aureus (MRSA) History of non-ST elevation myocardial infarction (NSTEMI) History of peritoneal dialysis History of TIAs Hyperkalemia Hypothyroid Migraine Morbid obesity Polyneuropathy PVD (peripheral vascular disease) SVT (supraventricular tachycardia) hx Surgical History H/O gastric bypass H/O total hip arthroplasty History of cholecystectomy History of colonoscopy with polypectomy "09/22/2014- adenomatous polyps" S/P hemodialysis catheter insertion with revisions in Left groin Family History Other Cancer Heart disease Hypertension Social History Smoking Status: Unknown if ever smoked Second Hand Exposure: No; Do You Dip or Chew Tobacco: No; Tobacco Cessation Education Requested by Patient: No Hx Alcohol Use: No Hx Substance Use: No Preferred Language: Georgian Communication Ability: Effective Balance Staff Staker Required: No Beliefs That Will Affect Care: None Current Living Situation: Long-Term Current Living Situation Comment: [facility] Other Information That Helps Us Care for You: No Feels Safe at Home: Yes Assistive Devices: Mechanical Lift Review of Systems Review of Systems: Unobtainable due to mental health condition Physical Exam Physical Exam: VITAL SIGNS - Vital signs and nursing notes were reviewed. GENERAL - 65-year-old male appearing older than his stated age who is in no acu te distress. SKIN - Multiple wounds in various stages noted throughout. HEAD - NC/AT. EYES - PERRL with EOMI bilaterally. Sclera anicteric. EARS - No deformities of external structures noted on gross examination bilaterally. NOSE - Midline and without cyanosis. No epistaxis or purulent drainage noted. MOUTH/OROPHARYNX - Without perioral cyanosis. Buccal mucosa pink and dry. Poor dentition. NECK - Neck with FROM. Supple to palpation. No nuchal rigidity. LUNGS - Chest wall symmetric without accessory muscle use, intercostals retractions, or central cyanosis. Normal vesicular breath sounds CTA B/L. No wheezes, rales, or rhonchi appreciated. CARDIAC - RRR with S1/S2. No murmur, rubs, or gallops appreciated. ABDOMEN - Abdominal contour obese without pulsations or visible masses. BS normoactive all four quadrants. No tenderness, palpable masses, hepatosplenomegaly, or ascites noted. EXTREMITIES - Poor peripheral pulses throughout. Poor vasculature. BKA of the LLE. NEUROLOGIC - Cranial nerves II through XII grossly intact. PSYCH -awake, alert, and oriented. He is aware of location and year. He can intermittently provide specific information including birthdate. Otherwise, his information provided and is inconsistent at best. Results & Data Results & Data ([facility]) Vital Signs (Past 12 Hours) Vital Signs Temp Pulse Pulse Resp BP Pulse Ox 09/19/21 01:02 36.2 C L 112 H 22 130/96 91 09/18/21 22:00 104 H 12 93/62 L 96 09/18/21 20:23 99 H 14 100/58 L 97 09/18/21 18:17 101 H 14 101/73 96 09/18/21 17:46 104 H 14 88/66 L 97 09/18/21 17:03 99 09/18/21 16:43 36.3 C L 104 H 102 H 11 L 99 Coding Level of Care Code Critical Care 1st 30-74 mins Diagnoses Admitted to intensive care unit Z78.9 Hypotension I95.9 Chronic kidney disease with end stage renal failure on dialysis N18.6; Z99.2 Hypoglycemia E16.2 Lactic acidosis E87.2 PAD (peripheral artery disease) I73.9 Time Spent (min) 45
[2021-09-19] MEDS: PANTOprazole 40 MG in SYRINGE 0 ML IV SCH ×3 (02:06→19:42)
[2021-09-19 02:34] LABS: Troponin I High Sensitivity 57.2 pg/ml (0-20)
[2021-09-19 03:24] LABS: Basophils # (auto) 0.01 K/uL (0-0.2); Basophils % (auto) 0.1 %; Hematocrit (blood only) 37.4 % (42-52); Hemoglobin 12.2 g/dL (14.0-18.0); Immature Granulocytes # (auto) 0.01 K/uL (0.00-0.02); Immature Granulocytes % (auto) 0.1 %; Lymphocytes # (auto) 0.51 K/uL (1.2-3.4); Mean Corpuscular Hemoglobin 29.8 pg (25-34); Mean Corpuscular Hgb Conc 32.6 g/dL (32-36); Mean Corpuscular Volume 91.4 fL (80-100); Mean Platelet Volume 12.5 fL (7.4-10.4); Monocytes # (auto) 0.62 K/uL (0.11-0.59); Monocytes % (auto) 7.3 %; Neutrophils % (auto) 86.5 %; Platelet Count 235 K/uL (130-400); RDW Coefficient of Variation 18.3 % (11.5-14.5); RDW Standard Deviation 59.4 fL (36.4-46.3); Red Blood Count 4.09 M/uL (4.7-6.1); White Blood Count 8.45 K/uL (4.8-10.8)
[2021-09-19] MEDS ORDERED: LEVOTHYROXINE SODIUM 75 MCG TABLET PO SCH (06:30)
[2021-09-19] MEDS ORDERED: FLUDROCORTISONE ACETATE 0.1 MG TAB PO SCH (08:00)
[2021-09-19] MEDS ORDERED: VANCOMYCIN CONSULT ACTIVE PRN (08:31)
[2021-09-19] MEDS ORDERED: ALBUMIN 5% 250 ML IV ONE ×2 (08:33→12:45)
[2021-09-19] MEDS ORDERED: VANCOMYCIN HCL 1,250 MG in SODIUM CHLORIDE 0.9% 500 ML IV SCH (08:45)
[2021-09-19] MEDS ORDERED: VANCOMYCIN HCL 1,750 MG in SODIUM CHLORIDE 0.9% 500 ML IV ONE (08:45)
[2021-09-19] MEDS ORDERED: PATIROMER CALCIUM SORBITEX 8.4 GM PACK PO SCH (09:00)
[2021-09-19] MEDS ORDERED: CEFEPIME 500 MG in SYRINGE 0 ML IV SCH (09:00)
[2021-09-19] MEDS ORDERED: MIDODRINE HCL 2.5 MG TAB PO SCH (09:00)
[2021-09-19] MEDS: CEFEPIME 1,000 MG in SYRINGE 0 ML IV SCH (09:28)
[2021-09-19] MEDS: MIDODRINE HCL 2.5 MG TAB PO SCH ×3 (09:29→18:37)
[2021-09-19 10:39] LABS: Basophils # (auto) 0.01 K/uL (0-0.2); Basophils % (auto) 0.1 %; Eosinophils # (auto) 0.01 K/uL (0-0.5); Eosinophils % (auto) 0.1 %; Hematocrit (blood only) 33.6 % (42-52); Hemoglobin 10.8 g/dL (14.0-18.0); Immature Granulocytes # (auto) 0.01 K/uL (0.00-0.02); Immature Granulocytes % (auto) 0.1 %; Lymphocytes # (auto) 0.39 K/uL (1.2-3.4); Lymphocytes % (auto) 5.3 %; Mean Corpuscular Hgb Conc 32.1 g/dL (32-36); Mean Corpuscular Volume 90.1 fL (80-100); Mean Platelet Volume 12.2 fL (7.4-10.4); Monocytes # (auto) 0.65 K/uL (0.11-0.59); Monocytes % (auto) 8.8 %; Neutrophils # (auto) 6.31 K/uL (1.4-6.5); Neutrophils % (auto) 85.6 %; Platelet Count 233 K/uL (130-400); RDW Standard Deviation 57.5 fL (36.4-46.3); Red Blood Count 3.73 M/uL (4.7-6.1); White Blood Count 7.38 K/uL (4.8-10.8)
[2021-09-19 10:55] LABS: BUN Creatinine Ratio 4.3 (10-20); Calcium 7.2 mg/dl (8.5-10.1); Creatinine Clr Calc Pharmacy 18.4 ml/min; Est GFR (African American) 15.3 ml/min; Est GFR (Non-African American) 13.2 ml/min; Magnesium 1.8 mg/dl (1.7-2.4); Phosphorus 2.2 mg/dl (2.5-4.9); Potassium 3.1 mmol/L (3.5-5.1)
[2021-09-19 11:13] LABS: Thyroid Stimulating Hormone 6.358 uIu/ml (0.300-4.500)
[2021-09-19 11:56] LABS: T4 Free Thyroxine 0.48 ng/dl (0.61-1.60)
--- NOTE | 2021-09-19 13:19 | Pharmacy Report ---
Pharmacy Vanc AUC Short Note - Date of Service September 19, 2021 - Assessment & Plan Assessment 65 year old M receiving vancomycin and cefepime empirically in setting of hypotension requiring pressor support, and malaise. Patient is ESRD on iHD MWF. MRSA nasal (+), blood cultures pending. Day #1 of antimicrobial therapy. Plan Vancomycin * AUC/RALPH is the preferred PK/PD target for vancomycin, however given HD, plan to dose by levels * S/p vancomycin 1750mg (~20mg/kg) IV X 1 today. * Random level ordered for 09/20 with AM labs to guide further dosing around dialysis Pharmacy will continue to follow and will adjust dose/frequency as necessary. Thank you.
[2021-09-19 13:46] LABS: BUN Creatinine Ratio 4.4 (10-20); Calcium 7.2 mg/dl (8.5-10.1); Creatinine Clr Calc Pharmacy 18.7 ml/min; Est GFR (African American) 15.6 ml/min; Est GFR (Non-African American) 13.4 ml/min
[2021-09-19] MEDS ORDERED: SODIUM CHLORIDE 0.9% 1000ML 1,000 ML IV PRN (14:10)
--- NOTE | 2021-09-19 14:37 | Psychiatric Consultation ---
Date of Consultation September 19, 2021 Impression / Recommendations Impression This is a 65 yo old admitted for ESRD on dialysis with hypotension. Diagnostically consistent with encephalopathy/delirium. Given acute delirium with severely impaired insight and judgment, lack of orientation, poor attention and inability to engage in any type of discussion about risks/benefits and high risk of without medical interventions and his statements of wanting to be full code he is not felt to have decision making capacity to refuse life saving/life sustaining treatments nor to refuse treatments that would prevent irreversible harm. Of note decision making capacity is specific to type of decision and time, once delirium improves DMC will need to be reassessed. -Continue with delirium prevention measures: raising blinds during the day, closing at night, frequent re-orientation, contact with family/friends, explaining procedures/nursing care measures prior to physical contact, correct any hearing and visual impairments (1) Encephalopathy acute: He does not have decision making capacity to refuse dialysis or medications at this time. Psych History Identifying Data 65 yo man with history of CKD with ESRD on dialysis, GERD, BPH, T2DM, CAD, right lower leg amputation and hx GI bleed admitted medically for melana, hypotension and refusal of dialysis now admitted to the ICU. Psychiatry was consulted for decision making capacity to refuse medications and dialysis. Chief Complaint "[place]". History of Present Illness Parker has been limited engaged with providers, swearing at ICU providers, and refusing medical interventions though noted he continues to desire full code status. On my assessment Parker is responding verbally and knows his name but doesn't know where we are (even with multiple choice options makes nonsensical responses and at one point states "[facility]" which I have learned is the location of his outpatient dialysis), thinks the city is [place] and thinks it is August, when asked the year states nonsensical responses or [place]. He notes he feels pain. Appears agitated with nurses attempts to provide care. Reviewed with critical care physician that his decline of dialysis could lead to and he is being treated for life threatening illness. Past Psychiatric History Previous Psych History: unable to assess given his cognitive status Allergies Allergy/AdvReac Type Severity Reaction Status Date / Time No Known Allergies Allergy Verified 09/18/21 18:35 Home Medications Medication Instructions Recorded Confirmed Type apixaban 5 mg tablet (Eliquis) 5 mg PO BID #60 tab 02/17/19 09/18/21 History midodrine 2.5 mg tablet 2.5 mg PO BID #30 tab 02/17/19 09/18/21 History acetaminophen 325 mg tablet 650 mg PO Q6H PRN MDD 3 GRAMS/24 03/20/19 09/18/21 History (Tylenol) HOURS atorvastatin 40 mg tablet (Lipitor) 40 mg PO HS 03/20/19 09/18/21 History fludrocortisone 0.1 mg tablet 0.1 mg PO DAILY 03/20/19 09/18/21 History loratadine 10 mg tablet (Claritin) 10 mg PO QPM 03/20/19 09/18/21 History omeprazole 20 mg tablet,delayed 20 mg PO DAILY 03/20/19 09/18/21 History release tramadol 50 mg tablet (Ultram) 50 mg PO 3XWK 03/20/19 09/18/21 History levothyroxine 75 mcg tablet 75 mcg PO DAILYBB 04/27/19 09/18/21 History sertraline 100 mg tablet 100 mg PO DAILY 04/27/19 09/18/21 History sucralfate 1 gram tablet 1 g PO BID 10/12/19 09/18/21 History Lactobacillus acidophilus 10,000 mmu cells PO BID 05/07/20 09/18/21 History gabapentin 400 mg capsule 400 mg PO DAILY 05/07/20 09/18/21 History latanoprost 0.005 % eye drops 1 drp OPL HS 07/04/20 09/18/21 History (Xalatan) patiromer calcium sorbitex 8.4 16.8 g PO DAILY 07/04/20 09/18/21 History gram oral powder packet (Veltassa) cinacalcet 30 mg tablet (Sensipar) 30 mg PO DAILY 07/25/20 09/18/21 History albuterol sulfate 90 mcg/actuation 2 puff INHALATION Q4H PRN 05/05/21 09/18/21 History aerosol inhaler (Ventolin HFA) lidocaine 5 % topical patch 1 patch TRANSDERMAL .EVERY 24 05/05/21 09/18/21 History HOURS PRN quetiapine 25 mg tablet 25 mg PO HS 05/05/21 09/18/21 History ondansetron HCl 4 mg tablet 4 mg PO Q6H PRN 08/03/21 09/18/21 History oxycodone 5 mg tablet 5 mg PO Q4H PRN 08/03/21 09/18/21 History cadexomer iodine 0.9 % topical gel 40 g TOPICAL DAILY 30 Days #40 g 08/10/21 09/18/21 Rx (Iodosorb) rizatriptan 5 mg disintegrating See Rx Instructions .ROUTE .COMPLEX 09/18/21 09/18/21 History tablet sertraline 25 mg tablet 25 mg PO DAILY 09/18/21 09/18/21 History Personal History Beliefs That Will Affect Care: None Patient History Medical History Amputation of left lower extremity below knee Anemia Atrial fibrillation Bradycardia with less than 30 beats per minute hx CAD (coronary artery disease) "per records- had acute [place] in 07/2001 and 03/2010. 40% LAD and 30% circ obstruction noted in records- unknown date of cath. " Depression Diabetes mellitus with diabetic polyneuropathy Diabetic retinopathy Dialysis patient AT [facility] EVERY SATURDAY/SAT/SATURDAY End stage renal disease Failed attempted surgical procedure attempted pacemaker insertion 02/2018 for bradycardia per medical notes ([facility]) Fall Fluency disorder following cerebrovascular accident patient Alert & Oriented x3 (per staff at [facility]) GERD (gastroesophageal reflux disease) Gout Hemodialysis patient History of Clostridium difficile colitis History of COVID-19 UNKNOWN DATE, FROM [facility] History of CVA (cerebrovascular accident) date unknown per [facility] History of GI bleed "EGD 02/08/15- ulceration at gastrojejunal anastomosis from bastric bypass Colonoscopy 02/08/15- internal hemorrhoids" History of methicillin resistant staphylococcus aureus (MRSA) History of non-ST elevation myocardial infarction (NSTEMI) History of peritoneal dialysis History of TIAs Hyperkalemia Hypothyroid Migraine Morbid obesity Polyneuropathy PVD (peripheral vascular disease) SVT (supraventricular tachycardia) hx Surgical History H/O gastric bypass H/O total hip arthroplasty History of cholecystectomy History of colonoscopy with polypectomy "09/22/2014- adenomatous polyps" S/P hemodialysis catheter insertion with revisions in Left groin Family History Other Cancer Heart disease Hypertension Social History Smoking Status: Unknown if ever smoked Second Hand Exposure: No; Do You Dip or Chew Tobacco: No; Tobacco Cessation Education Requested by Patient: No Hx Alcohol Use: No Hx Substance Use: No Preferred Language: Irish Communication Ability: Effective [employer] Required: No Beliefs That Will Affect Care: None Current Living Situation: Prison Current Living Situation Comment: [facility] Other Information That Helps Us Care for You: No Feels Safe at Home: Yes Assistive Devices: Mechanical Lift Physical Exam Psychiatric: Orientation: alert and oriented to person; + not oriented to place, + not oriented to time and + uncooperative Apperance: + disheveled Eye Contact: + poor eye contact Motor Behavior: no abnormal motor movements Speech: + abnormal rate/rhythm/volume of speech (one word responses, loud) Affect: + labile affect Mood: + irritable mood and + angry mood Thought Process: + looseness of associations Cognition: + recent memory not intact, + remote memory not intact and + attention not intact Insight: + severely impaired insight Judgement: + severely impaired judgement Vital Signs (Past 24 Hours): Last Vital Signs Temp 36.3 C L 09/19/21 13:40 Pulse 119 H 09/19/21 14:15 Resp 17 09/19/21 10:31 BP 98/50 L 09/19/21 14:15 Pulse Ox 55 L 09/19/21 08:15 Review of Systems Unobtainable due to cognitive status Results & Data (PSY) Medications Administered Fludrocortisone Acetate (Fludrocortisone Acetate 0.1 Mg Tab) 0.1 mg PO SuTuThSa@0800 [facility] Stop: 10/19/21 07:59 Last Admin: 09/19/21 09:29 Dose: Not Given Documented by: [id number] Norepinephrine Bitartrate (Levophed/D5w) 8 mg in 508 mls @ 33.719 mls/hr IV .Q15H4M [facility]; Protocol Stop: 10/19/21 00:44 Last Titration: 09/19/21 13:33 Dose: 0.1 mcg/kg/min, 33.7 mls/hr Documented by: [id number] Titration: 09/19/21 12:56 Dose: 0.05 mcg/kg/min, 16.9 mls/hr Documented by: [id number] Titration: 09/19/21 10:02 Dose: 0 mcg/kg/min, 0 mls/hr Documented by: [id number] Admin: 09/19/21 00:50 Dose: 0.05 mcg/kg/min, 16.9 mls/hr Documented by: [id number] Cosigned by: [id number] Pantoprazole Sodium 40 mg/ (Syringe) 10 mls @ 5 mls/min IV BID [facility] Stop: 10/19/21 00:44 Last Admin: 09/19/21 10:16 Dose: 5 mls/min Documented by: [id number] Admin: 09/19/21 02:06 Dose: 5 mls/min Documented by: [id number] Cefepime HCl 1,000 mg/ Syringe 11.3 mls @ 5.5 mls/min IV Q24H [facility] Stop: 09/21/21 08:59 Last Admin: 09/19/21 09:28 Dose: 5.5 mls/min Documented by: [id number] Levothyroxine Sodium (Levothyroxine Sodium 75 Mcg Tablet) 75 mcg PO DAILYBB [facility] Stop: 10/19/21 06:29 Last Admin: 09/19/21 06:33 Dose: Not Given Documented by: [id number] Midodrine (Midodrine Hcl 2.5 Mg Tab) 5 mg PO TID@0800,1200,1700 [facility] Stop: 10/19/21 08:14 Last Admin: 09/19/21 09:29 Dose: Not Given Documented by: [id number] Miscellaneous (Carbohydrates For Hypoglycemia ) 15 - 30 gm PO UD PRN PRN Reason: Hypoglycemia Protocol Stop: 10/19/21 00:38 Last Admin: 09/19/21 09:20 Dose: 15 gm Documented by: [id number] Patiromer (Patiromer Calcium Sorbitex 8.4 Gm Pack) 16.8 gm PO DAILY [facility] Stop: 10/19/21 08:59 Last Admin: 09/19/21 09:46 Dose: Not Given Documented by: [id number] Coding Level of Care Code 56352 Inpt Consult Level 3 Diagnoses Encephalopathy acute G93.40
[2021-09-19] MEDS: SERTRALINE HCL 100 MG TABLET PO SCH (15:05)
[2021-09-19] MEDS: SERTRALINE HCL 50 MG TABLET PO SCH (15:05)
--- NOTE | 2021-09-19 16:29 | Consultation Report ---
NEPHROLOGY CONSULTATION NOTE DATE OF SERVICE: 09/19/2021 REASON FOR CONSULTATION: Dialysis patient admitted with possible seps/Gi bleed. HISTORY OF PRESENT ILLNESS: The patient is a 65-year-old male who is on chronic hemodialysis Saturday, Saturday, Saturday, who presented to the hospital yesterday with melanotic stool, weakness, poor oral intake for the last few days. He has been refusing his oral medications. He is also on blood thinner. The patient did refuse dialysis yesterday because he was not feeling well. In the Emergency Department, he was hyperglycemic with a glucose of 49. His blood pressure was low. He is currently in ICU and requiring Levophed support. He has agreed to do dialysis today and is currently on dialysis. In the Emergency Department, he did receive some IV fluid. Potassium was actually low. The patient is a very poor historian and he does not really cooperate with questions and answers and he is yelling and cursing all the time. ALLERGIES: None. MEDICATIONS: Home medication list was reviewed. The patient is on Eliquis, midodrine, Florinef, Veltassa, Sensipar and multiple other medications. PAST MEDICAL AND SURGICAL HISTORY: Severe diffuse peripheral vascular disease, longstanding diabetes with all the classic complications, end-stage renal disease on hemodialysis Saturday, Saturday, Saturday; history of noncompliance, history of C. diff colitis, a resident of [facility], history of stroke, BKA, coronary artery disease with history of NC in the past, history of bradycardia, atrial fibrillation, migraine, peripheral vascular disease, supraventricular tachycardia, history of stroke, history of peritoneal dialysis not currently, history of GI bleed, history of stroke, gastric bypass, total hip arthroplasty, history of cholecystectomy, colonoscopy with polypectomy, status post hemodialysis catheter insertion and currently has a catheter in the left groin. FAMILY HISTORY: Negative for renal disease or dialysis. SOCIAL HISTORY: Smoking in the past. No alcohol. He is currently a permanent resident of [facility]. He needs mechanical lift for support and he is 100 percent dependent on others for all of his activities of daily living. REVIEW OF SYSTEMS: Unable to obtain as the patient is really not cooperative with history and physical examination. PHYSICAL EXAMINATION: GENERAL: Chronically ill-appearing white male who looks lot older than his stated age. He appears to be awake and alert, but really cannot get any meaningful history from the patient. He is yelling, shouting and cursing to everyone. HEENT: Mucous membranes are moist. NECK: Supple. CHEST: Bilateral decreased breath sounds, occasional crackles. CARDIOVASCULAR: S1 and S2, regular. ABDOMEN: Soft, nontender. EXTREMITIES: Show multiple skin lesions left BKA. VITAL SIGNS: Includes blood pressure 99/47 with Levophed support, pulse rate 110, temperature 36.6, pulse rate 55% on room air. LABORATORY TEST: Potassium is 3.0, sodium 141, BUN 19, creatinine 4.36, calcium 7.2, hemoglobin is 10.8, WBC count 7000. Abdomen and pelvis CT scan showed no acute intra-abdominal or intrapelvic abnormality. Chest x-ray did not show any overt congestive heart failure, but there was some small pleural effusion. ASSESSMENT AND PLAN: A 65-year-old male with long-term uncontrolled diabetes with all the classic complications associated with diabetes including end-stage renal disease on hemodialysis Saturday, Saturday, Saturday as well as severe vascular disease all over his body. He is now admitted with weakness, fatigue, possible GI bleed and sepsis. 1. End-stage renal disease. He has not been eating or drinking much for the last few days that is evident by his low potassium of 3 despite missing dialysis. His blood pressure is also quite low, although it is worth noting that he chronically has low blood pressure. At this time, he is getting Levophed drip, which we will continue to help with dialysis. We will try to take about 1-1.5 kilo off in about 3 hours' time. He will be done on a 3K bath given the low potassium. We can hold Veltassa for the time being as long as his potassium is low. Continue his home dose of midodrine. 2. Possible infection. He is on broad-spectrum antibiotics and we will defer to primary team. 3. Possible gastrointestinal bleed. He was having some melanotic stools. Hemoglobin has dropped, but for somebody who is a dialysis patient, it is not very low at this time. But given that he is already on Eliquis, we will not be giving heparin with dialysis today. Thank you very much for the consult. Job ID: [id number] [facility]ITALManuel
--- NOTE | 2021-09-19 16:41 | Hospitalist Progress Note ---
Date of Service September 19, 2021 Assessment & Plan (1) Chronic kidney disease with end stage renal failure on dialysis: Plan: 65 year old male with ESRD on MWF hemodialysis, PAD, BPH, GERD, DM, depression, CAD, CVA, anemia who presents w/ melena, fatigue, and generalized malaise x several days. Encephalopathy, suspect 2/2 sepsis versus metabolic with ESRD Prior to admission patient had refused 09/18 dialysis with electrolyte abnormalities On admission afebrile, no leukocytosis. Did have several days of fatigue preceding this Lactate 3.1, down trended and normalized No leukocytosis VBG 09/18: 7.16/50// VBG 09/19: 7.34/35/ K 3.4 on admission, 3.0 today - Cr 4.05 --> 4.36 - trop 56.4, 89.7 - TSH 6.358 / fT4 0.48. Increased Synthroid from 75 mcg to 88mcg - MRSA Nare Positive - Random cortisol 27,54 - COVID negative - CXR: small pleural effusions with mild bibasilar atelectasis - CT-A/P: No acute intra-abdominal or intrapelvic abnormality. No urolith or obstructive uropathy. Small pleural effusions with compressive bibasilar atelectasis. Additional bibasilar groundglass densities are suspicious for a mild infectious or inflammatory pneumonitis. Unchanged 2 cm exophytic lesion of the right kidney suggestive of a proteinaceous or hemorrhagic cyst. Blood cultures pending, NGTD Admitting EKG: afib, no st changes Psychiatry consulted. Patient presentation is consistent with encephalopathy/delirium, and has not felt to have DMC to refuse life-saving/life-sustaining treatments or to refuse treatments that would prevent irreversible harm at this time. ? GI bleed, melanotic stools prior to admission. DOAC held.Hemoglobin 10.8 from 12.2, admitting 11.7 BUN not markedly elevated on admission Anion gap 22. Delta gap 10, delta ratio 2 suggesting pure anion gap acidosis. Procalcitonin normal Patient with anion gap earlier acidosis, suspected in the setting of renal failure although not improved with improvement in lactic acidosis. Added serum osmolality with tox/ingestion eval Patient presented with septic appearance, procalcitonin normal, multiple skin wounds although not overtly infected appearing. On empiric Rocephin, no growth on culture so far ESRD on dialysis Nephrology consulted Electrolytes as above Midodrine continued, although patient refuses this Continue on Levophed drip for pressure support, dialysis per nephrology - K low, will not be repleting in setting of ESRD. HS trop 56.4, will trend. AG as noted (2) Acute upper gastrointestinal bleeding: Plan: - Held home Eliquis History of GI ulcer 2018, history of gastric bypass Hemoglobin stable at this time, trend and follow for bleeding (3) Lactic acidosis: Plan: Resolved (4) PAD (peripheral artery disease): Plan: Apixaban held, Resume atorvastatin once clinically improving (5) Elevated troponin I level: Plan: - trend (6) BPH (benign prostatic hyperplasia): Plan: - home regimen (7) GERD (gastroesophageal reflux disease): Plan: - home regimen (8) Hemodialysis patient: Plan: Neurology consulted as noted above (9) Diabetes mellitus with diabetic polyneuropathy: Plan: ICU hyperglycemia protocol (10) Hypothyroid: Plan: - home regimen (11) History of non-ST elevation myocardial infarction (NSTEMI): Plan: Denies pain, no acute ST changes High-sensitivity troponin increased Trending as above, follow clinically (12) CAD (coronary artery disease): Plan: As above (13) History of CVA (cerebrovascular accident): Plan: As above (14) History of GI bleed: Plan: As above Plan: FEN/GI: dialysis renal diet. fluid restrict 1000mL ppx: scds only code: full dispo: pcu Admission and Anticipated Discharge Date Admission Date: September 18, 2021 Subjective Limited by cognitive status. Patient is not oriented to place. Yells out in appropriate answers to questions, does not not voluntarily follow commands. Review of Systems Review of Systems: Unobtainable due to cognitive status Physical Exam Physical Exam: General: Not oriented to place. Does not follow commands. Does not give appropriate answers to questions. Nontoxic. Disheveled. HEENT: Atraumatic, normocephalic. Pulm: Symmetrical chest rise. No increase in work of breathing. No respiratory distress. Cardiac: ir, tachy Abdominal: Does not grimace to abdominal palpation. Declines exam. Extremities: Left BKA. Results & Data Results & Data ([facility]) Vital Signs (Past 12 Hours) Vital Signs Temp Pulse Pulse Resp BP Pulse Ox 09/19/21 16:30 117 H 89/60 L 09/19/21 16:00 117 H 71/54 L 09/19/21 15:30 116 H 87/61 L 09/19/21 15:00 126 H 84/44 L 09/19/21 14:30 110 H 09/19/21 14:15 119 H 98/50 L 09/19/21 14:00 105 H 128/61 09/19/21 13:46 96 H 120/72 09/19/21 13:40 36.3 C L 94 H 09/19/21 10:31 36.6 C 110 H 17 99/47 L 09/19/21 10:30 114 H 22 09/19/21 10:16 114 H 18 88/76 L 09/19/21 10:15 130 H 13 09/19/21 10:00 128 H 14 09/19/21 09:45 122 H 13 92/67 L 09/19/21 09:30 120 H 12 110/77 09/19/21 09:21 110 H 16 09/19/21 09:03 112 H 16 09/19/21 09:00 119 H 15 09/19/21 08:46 113 H 13 101/67 09/19/21 08:45 120 H 12 09/19/21 08:32 120 H 10 L 09/19/21 08:30 120 H 15 09/19/21 08:15 114 H 9 L 55 L 09/19/21 08:00 118 H 10 L 09/19/21 07:46 113 H 10 L 86/61 L 09/19/21 07:45 119 H 12 09/19/21 07:31 105 H 10 L 93/60 L 09/19/21 07:30 126 H 13 09/19/21 07:15 105 H 8 L 09/19/21 07:00 121 H 9 L 09/19/21 06:47 132 H 12 92 09/19/21 06:45 127 H 18 86 L 09/19/21 06:31 113 H 19 75 L 09/19/21 06:30 113 H 16 86 L 09/19/21 06:16 114 H 14 81 L 09/19/21 06:15 102 H 14 89 L 09/19/21 06:01 109 H 14 88/51 L 92 04/19/22 06:00 126 H 9 L 89 L 09/19/21 05:47 118 H 9 L 119/54 L 82 L 09/19/21 05:45 109 H 9 L 83 L 09/19/21 05:30 114 H 18 78 L 09/19/21 05:16 124 H 10 L 83 L 09/19/21 05:15 104 H 10 L 83 L 09/19/21 05:00 119 H 9 L 83/58 L 84 L 09/19/21 04:45 118 H 11 L 86 L PG Care Time/CCT Total # of Minutes Spent Total Time Spent with Patient: Total time spent is greater than 50% in coordination of care (as documented) at patient's floor/unit and/or counseling patient: Coding Level of Care Code 50268 Subseq Hosp Care Lvl 2 Diagnoses Chronic kidney disease with end stage renal failure on dialysis N18.6; Z99.2 Acute upper gastrointestinal bleeding K92.2 Lactic acidosis E87.2 PAD (peripheral artery disease) I73.9 Elevated troponin I level R77.8 BPH (benign prostatic hyperplasia) N40.0 Lower urinary tract symptom presence: symptoms absent GERD (gastroesophageal reflux disease) K21.9 Esophagitis presence: esophagitis presence not specified Hemodialysis patient Z99.2 Diabetes mellitus with diabetic polyneuropathy E11.42 Diabetes mellitus type: type 2 Diabetes mellitus 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 transplanted heart: [place] heart Associated angina: without angina History of CVA (cerebrovascular accident) Z86.73 History of GI bleed Z87.19 (1) BPH (benign prostatic hyperplasia) Lower urinary tract symptom presence: symptoms absent Qualified Code(s): N40.0 - Benign prostatic hyperplasia without lower urinary tract symptoms (2) GERD (gastroesophageal reflux disease) Esophagitis presence: esophagitis presence not specified Qualified Code(s): K21.9 - Gastro-esophageal reflux disease without esophagitis (3) Diabetes mellitus with diabetic polyneuropathy Diabetes mellitus type: type 2 Diabetes mellitus terminal computer operator insulin use: without terminal computer operator use Qualified Code(s): E11.42 - Type 2 diabetes mellitus with diabetic polyneuropathy (4) Hypothyroid Hypothyroidism type: acquired Qualified Code(s): E03.9 - Hypothyroidism, unspecified (5) CAD (coronary artery disease) Coronary Disease-Associated Artery/Lesion type: unspecified vessel or lesion type [place] vs. transplanted heart: [place] heart Associated angina: without angina Qualified Code(s): I25.10 - Atherosclerotic heart disease of [place] coronary artery without angina pectoris
[2021-09-19] MEDS: LATANOPROST 0.005% OP SOLN 2.5 ML BTL OPL SCH (19:42)
[2021-09-19] MEDS: QUEtiapine FUMARATE 25 MG TABLET PO SCH (19:43)
[2021-09-20] MEDS: LEVOTHYROXINE SODIUM 88 MCG TABLET PO SCH (04:16)
[2021-09-20] MEDS: FLUDROCORTISONE ACETATE 0.1 MG TAB PO SCH (04:16)
[2021-09-20 06:15] LABS: Basophils # (auto) 0.01 K/uL (0-0.2); Basophils % (auto) 0.1 %; Eosinophils # (auto) 0.03 K/uL (0-0.5); Eosinophils % (auto) 0.4 %; Hematocrit (blood only) 33.7 % (42-52); Immature Granulocytes # (auto) 0.04 K/uL (0.00-0.02); Immature Granulocytes % (auto) 0.5 %; Lymphocytes # (auto) 0.53 K/uL (1.2-3.4); Lymphocytes % (auto) 6.4 %; Mean Corpuscular Hemoglobin 29.2 pg (25-34); Mean Corpuscular Hgb Conc 32.6 g/dL (32-36); Mean Corpuscular Volume 89.4 fL (80-100); Monocytes # (auto) 1.56 K/uL (0.11-0.59); Monocytes % (auto) 18.9 %; Neutrophils % (auto) 73.7 %; Platelet Count 203 K/uL (130-400); RDW Coefficient of Variation 18.1 % (11.5-14.5); RDW Standard Deviation 57.6 fL (36.4-46.3); Red Blood Count 3.77 M/uL (4.7-6.1); White Blood Count 8.27 K/uL (4.8-10.8)
[2021-09-20 06:36] LABS: Acetaminophen < 3 ug/ml (10-30); Salicylate < 3.0 mg/dl (3.0-30)
[2021-09-20 06:53] LABS: Albumin Globulin Ratio 0.8 (0.9-2); Albumin Level 2.3 gm/dl (3.4-5.0); BUN Creatinine Ratio 3.9 (10-20); Bilirubin,Total 0.8 mg/dl (0.2-1.0); Calcium 7.5 mg/dl (8.5-10.1); Creatinine Clr Calc Pharmacy 28.6 ml/min; Est GFR (African American) 26.4 ml/min; Est GFR (Non-African American) 22.8 ml/min; Globulin 2.8 gm/dl (2.5-4.0); Magnesium 1.8 mg/dl (1.7-2.4); Phosphorus 1.2 mg/dl (2.5-4.9); Potassium 3.2 mmol/L (3.5-5.1); Total Protein 5.1 gm/dl (6.0-8.3)
--- NOTE | 2021-09-20 08:03 | Hospitalist Progress Note ---
Date of Service September 20, 2021 Assessment & Plan (1) Chronic kidney disease with end stage renal failure on dialysis: Plan: 65 year old male with ESRD on MWF hemodialysis, PAD, BPH, GERD, DM, depression, CAD, CVA, anemia who presents w/ melena, fatigue, and malaise Encephalopathy, suspect 2/2 sepsis versus metabolic with ESRD Prior to admission patient had refused 09/18 dialysis with electrolyte abnormalities On admission afebrile, no leukocytosis. Did have several days of fatigue preceding this - trop 56.4, 89.7 likely demand ischemia from hypotension - TSH 6.358 / fT4 0.48. Increased Synthroid from 75 mcg to 88mcg - MRSA Nare Positive - Random cortisol 27,54 - COVID negative - CXR: small pleural effusions with mild bibasilar atelectasis - CT-A/P: No acute intra-abdominal or intrapelvic abnormality. No urolith or obstructive uropathy. Small pleural effusions with compressive bibasilar atelectasis. Additional bibasilar groundglass densities are suspicious for a mild infectious or inflammatory pneumonitis. Unchanged 2 cm exophytic lesion of the right kidney suggestive of a proteinaceous or hemorrhagic cyst. Blood cultures NGTD empirically on antibiotics. After 48 hours if no cultures are positive Admitting EKG: afib, no st changes Psychiatry consulted. Patient presentation is consistent with encephalopathy/delirium, and has not felt to have decision making capacity to refuse life-saving/life-sustaining treatments or to refuse treatments that would prevent irreversible harm at this time. ? GI bleed, melanotic stools prior to admission. DOAC held.Hemoglobin 10.8 from 12.2, admitting 11.7 BUN not markedly elevated on admission Patient presented with septic appearance, procalcitonin normal, multiple skin wounds although not overtly infected appearing. On empiric Rocephin, no growth on culture so far ESRD on dialysis Nephrology consulted Electrolytes as above Midodrine Continue on Levophed drip for pressure support, dialysis per nephrology - K low, will not be repleting in setting of ESRD. HS trop 56.4, will trend. AG as noted (2) Acute upper gastrointestinal bleeding: Plan: - Held home Eliquis History of GI ulcer 2018, history of gastric bypass Hemoglobin stable at this time, trend and follow for bleeding (3) Lactic acidosis: Plan: Resolved secondary to low blood pressure and decreased tissue perfusion along with renal failure (4) PAD (peripheral artery disease): Plan: Apixaban held, Resume atorvastatin once clinically improving (5) Elevated troponin I level: Plan: - no significant up trend Naz[place] demand ischemia given his hypotension and significantly ill state (6) BPH (benign prostatic hyperplasia): Plan: - home regimen (7) GERD (gastroesophageal reflux disease): Plan: - home regimen (8) Hemodialysis patient: Plan: Neurology consulted as noted above (9) Diabetes mellitus with diabetic polyneuropathy: Plan: ICU hyperglycemia protocol (10) Hypothyroid: Plan: - home regimen (11) History of non-ST elevation myocardial infarction (NSTEMI): Plan: Denies pain, no acute ST changes High-sensitivity troponin increased do not suspect acute coronary syndrome at this time (12) CAD (coronary artery disease): Plan: As above (13) History of CVA (cerebrovascular accident): Plan: As above (14) History of GI bleed: Plan: As above Plan: FEN/GI: dialysis renal diet. fluid restrict 1000mL ppx: scds only code: full dispo: pcu Admission and Anticipated Discharge Date Admission Date: September 18, 2021 Subjective pt is lethargic but when he does answer as he says I do not care, he is sleepy at best Review of Systems Review of Systems: Unobtainable due to cognitive status Physical Exam Physical Exam: The patient appeared well nourished and normally developed. Vital signs as documented. Head exam is normocephalic atraumatic Neck is with centimeter JVD, thyromegaly, or carotid bruits. Lungs are diminished throughout Cardiac exam, Rhythm is regular.. No murmurs, rubs or gallops. Abdominal exam reveals normal bowel sounds, soft non tender, no masses Extremities left BKA right with chronic arterial insufficiency changes Neurologic exam i awakens to voice, spontaneously moves all extremities but does not follow commands Skin is with multiple open areas of various stages of healing Psychologically is without concerns for anxiety or depression.. Results & Data Results & Data ([facility]) Vital Signs (Past 12 Hours) Vital Signs Temp Pulse Resp BP Pulse Ox 09/20/21 07:02 106 H 21 45/36 L 94 09/20/21 07:00 104 H 23 96 09/20/21 06:31 93 H 20 99/61 L 97 09/20/21 06:30 107 H 23 96 09/20/21 06:01 108 H 18 103/42 L 96 09/20/21 06:00 101 H 17 97 09/20/21 05:31 103 H 20 88/51 L 96 09/20/21 05:30 103 H 21 96 09/20/21 05:05 67/39 L 09/20/21 05:00 110 H 15 97 09/20/21 04:32 94 H 19 75/51 L 97 09/20/21 04:30 98 H 12 96 09/20/21 04:01 97.5 F L 94 H 16 91/49 L 98 09/20/21 04:00 92 H 17 97 09/20/21 03:32 101 H 16 89/56 L 97 09/20/21 03:30 99 H 14 97 09/20/21 03:01 102 H 15 69/48 L 95 09/20/21 03:00 97 H 14 95 09/20/21 02:59 97 H 14 113/53 L 98 09/20/21 02:30 97 H 13 97 09/20/21 02:01 100 H 15 80/56 L 95 09/20/21 02:00 106 H 17 97 09/20/21 01:53 96 H 11 L 73/52 L 98 09/20/21 01:31 103 H 14 96 09/20/21 01:30 91 H 11 L 96 09/20/21 01:26 95 H 12 68/59 L 97 09/20/21 01:17 95 H 13 58/47 L 98 09/20/21 01:00 90 17 97 09/20/21 00:30 93 H 16 96 09/20/21 00:02 97.7 F 101 H 9 L 87/63 L 95 09/20/21 00:00 98 H 15 86 L 09/19/21 23:32 89 14 98 09/19/21 23:30 102 H 15 97 09/19/21 23:01 107 H 17 84/45 L 97 09/19/21 23:00 108 H 17 96 09/19/21 22:30 107 H 12 80/57 L 96 09/19/21 22:05 99 H 13 79/50 L 97 09/19/21 22:02 100 H 16 96 09/19/21 22:00 112 H 13 97 09/19/21 21:47 100 H 18 99/62 L 96 09/19/21 21:31 101 H 17 78/49 L 98 09/19/21 21:30 115 H 11 L 96 09/19/21 21:00 101 H 18 96 09/19/21 20:30 112 H 17 96 09/19/21 20:17 99 H 14 98 09/19/21 20:01 108 H 12 79/43 L 97 09/19/21 20:00 106 H 21 96 PG Care Time/CCT Total # of Minutes Spent Total Time Spent with Patient: Total time spent is greater than 50% in coordination of care (as documented) at patient's floor/unit and/or counseling patient: Coding Level of Care Code 54796 Subseq Hosp Care Lvl 3 Diagnoses Chronic kidney disease with end stage renal failure on dialysis N18.6; Z99.2 Acute upper gastrointestinal bleeding K92.2 Lactic acidosis E87.2 PAD (peripheral artery disease) I73.9 Elevated troponin I level R77.8 BPH (benign prostatic hyperplasia) N40.0 Lower urinary tract symptom presence: symptoms absent GERD (gastroesophageal reflux disease) K21.9 Esophagitis presence: esophagitis presence not specified Hemodialysis patient Z99.2 Diabetes mellitus with diabetic polyneuropathy E11.42 Diabetes mellitus fdc insulin use: without regional 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 transplanted heart: [place] heart History of CVA (cerebrovascular accident) Z86.73 History of GI bleed Z87.19 (1) BPH (benign prostatic hyperplasia) Lower urinary tract symptom presence: symptoms absent Qualified Code(s): N40.0 - Benign prostatic hyperplasia without lower urinary tract symptoms (2) CAD (coronary artery disease) Associated angina: without angina Coronary Disease-Associated Artery/Lesion type: unspecified vessel or lesion type [place] vs. transplanted heart: [place] heart Qualified Code(s): I25.10 - Atherosclerotic heart disease of [place] coronary artery without angina pectoris (3) Hypothyroid Hypothyroidism type: acquired Qualified Code(s): E03.9 - Hypothyroidism, unspecified (4) Diabetes mellitus with diabetic polyneuropathy Diabetes mellitus fdc insulin use: without fdc use Diabetes mellitus type: type 2 Qualified Code(s): E11.42 - Type 2 diabetes mellitus with diabetic polyneuropathy (5) GERD (gastroesophageal reflux disease) Esophagitis presence: esophagitis presence not specified Qualified Code(s): K21.9 - Gastro-esophageal reflux disease without esophagitis
[2021-09-20] MEDS ORDERED: POTASSIUM PHOS 3 MMOL/1 ML INFUSION IV STA ×2 (08:23→10:31)
[2021-09-20] MEDS ORDERED: POTASSIUM PHOSPHATE 30 MMOL in SODIUM CHLORIDE 0.9% 500 ML IV ONE (08:45)
--- NOTE | 2021-09-20 09:20 | Critical Care Progress Note ---
Date of Service September 20, 2021 Assessment & Plan (1) Admitted to intensive care unit: Plan: Reason Critically Ill: 65-year-old male with end-stage renal disease and multiple comorbidities presenting with concerns for melanotic stools and hypotension. NEURO - * Delirious. Avoid sedating medications. CARDIAC/VASCULAR - * Hypotension: * Midodrine increased to 5 mg 3 times daily. He has been noncompliant. * Vascular access is proving difficult given his vasculopathy. * Continue as needed Levophed to maintain mean arterial pressure above 65. * History of A. fib. Currently rate controlled. Holding anticoagulation due to concern dark stools earlier. * Will obtain updated echo. RESPIRATORY - * No significant issues at present. GI/NUTRITION - * Minimal p.o. intake. Mild transaminitis. Continue to trend. RENAL/LYTES - * End-stage renal disease: * Replacing phosphorus and potassium. * Consult nephrology for ongoing management. * Anion gap acidosis improved postdialysis yesterday. - * Anuric ENDO - * DMII, Hypothyroid * BSGs per unit protocol. ISS --> gtt per unit policy. HEME - * Stable H&H * Monitor for drop w/ concerns of ?? GIB * Holding anticoagulation despite the fact that he has atrial fibrillation. ID - * Blood cultures negative to date. Continue empiric antibiotics for 48 hours. LINES/IV ACCESS - * LEFT EJ * LEFT Femoral HD Cath DVT PROPHYLAXIS - * Apixaban * SCDs Consult to palliative care given patient's overall prognosis which is very poor. I have personally spent 44 minutes of critical care time in the direct management of this patient. This is a life/limb threatening event. This includes time spent evaluating patient, direct bedside care, chart review, placing orders, interpretation of diagnostic studies, discussion with consultants, patient, and family members, as well as other required patient management activities. This time is exclusive of all separately billable procedures, and teaching time and separate from and in addition to any other critical care service time. Thank you for allowing us to participate in the care of this patient. Please refer to my attending physician's documentation for any further recommendations. (2) Hypotension: (3) Chronic kidney disease with end stage renal failure on dialysis: (4) Hypoglycemia: (5) Lactic acidosis: (6) PAD (peripheral artery disease): Admission and Anticipated Discharge Date Admission Date: September 18, 2021 Subjective Patient seen and examined. He remains delirious. Currently on low doses of Levophed with systolic blood pressures in the 80s. He occasionally refuses his medications. Review of Systems Review of Systems: All systems reviewed & are unremarkable except as noted in HPI & below Physical Exam Physical Exam: VITAL SIGNS - Vital signs and nursing notes were reviewed. GENERAL - 65-year-old male appearing older than his stated age who is in no acute distress. SKIN - Multiple wounds in various stages noted throughout. HEAD - NC/AT. EYES - PERRL with EOMI bilaterally. Sclera anicteric. EARS - No deformities of external structures noted on gross examination bilaterally. NOSE - Midline and without cyanosis. No epistaxis or purulent drainage noted. MOUTH/OROPHARYNX - Without perioral cyanosis. Buccal mucosa pink and dry. Poor dentition. NECK - Neck with FROM. Supple to palpation. No nuchal rigidity. LUNGS - Chest wall symmetric without accessory muscle use, intercostals retractions, or central cyanosis. Normal vesicular breath sounds CTA B/L. No wheezes, rales, or rhonchi appreciated. CARDIAC - RRR with S1/S2. No murmur, rubs, or gallops appreciated. ABDOMEN - Abdominal contour obese without pulsations or visible masses. BS normoactive all four quadrants. No tenderness, palpable masses, hepatosplenomegaly, or ascites noted. EXTREMITIES - Poor peripheral pulses throughout. Poor vasculature. BKA of the LLE. NEUROLOGIC - Cranial nerves II through XII grossly intact. PSYCH -awake, alert, and oriented. He is aware of location and year. He can intermittently provide specific information including birthdate. Otherwise, his information provided and is inconsistent at best. Results & Data Results & Data ([facility]) Vital Signs (Past 12 Hours) Vital Signs Temp Pulse Pulse Resp BP BP Pulse Ox 09/20/21 08:00 36.3 C L 107 H 18 85/44 L 96 09/20/21 07:02 106 H 21 45/36 L 94 09/20/21 07:00 104 H 23 96 09/20/21 06:31 93 H 20 99/61 L 97 09/20/21 06:30 107 H 23 96 09/20/21 06:01 108 H 18 103/42 L 96 09/20/21 06:00 101 H 17 97 09/20/21 05:31 103 H 20 88/51 L 96 04/20/22 05:30 103 H 21 96 09/20/21 05:05 67/39 L 09/20/21 05:00 110 H 15 97 09/20/21 04:32 94 H 19 75/51 L 97 09/20/21 04:30 98 H 12 96 09/20/21 04:01 36.4 C L 94 H 16 91/49 L 98 09/20/21 04:00 92 H 17 97 09/20/21 03:32 101 H 16 89/56 L 97 09/20/21 03:30 99 H 14 97 09/20/21 03:01 102 H 15 69/48 L 95 09/20/21 03:00 97 H 14 95 09/20/21 02:59 97 H 14 113/53 L 98 09/20/21 02:30 97 H 13 97 09/20/21 02:01 100 H 15 80/56 L 95 09/20/21 02:00 106 H 17 97 09/20/21 01:53 96 H 11 L 73/52 L 98 09/20/21 01:31 103 H 14 96 09/20/21 01:30 91 H 11 L 96 09/20/21 01:26 95 H 12 68/59 L 97 09/20/21 01:17 95 H 13 58/47 L 98 09/20/21 01:00 90 17 97 09/20/21 00:30 93 H 16 96 09/20/21 00:02 36.5 C 101 H 9 L 87/63 L 95 09/20/21 00:00 98 H 15 86 L 09/19/21 23:32 89 14 98 09/19/21 23:30 102 H 15 97 09/19/21 23:01 107 H 17 84/45 L 97 09/19/21 23:00 108 H 17 96 09/19/21 22:30 107 H 12 80/57 L 96 09/19/21 22:05 99 H 13 79/50 L 97 09/19/21 22:02 100 H 16 96 09/19/21 22:00 112 H 13 97 09/19/21 21:47 100 H 18 99/62 L 96 09/19/21 21:31 101 H 17 78/49 L 98 09/19/21 21:30 115 H 11 L 96 Coding Level of Care Code Critical Care 1st 30-74 mins Diagnoses Admitted to intensive care unit Z78.9 Hypotension I95.9 Chronic kidney disease with end stage renal failure on dialysis N18.6; Z99.2 Hypoglycemia E16.2 Lactic acidosis E87.2 PAD (peripheral artery disease) I73.9 Time Spent (min) 44
[2021-09-20] MEDS: PANTOprazole 40 MG in SYRINGE 0 ML IV SCH ×2 (09:38→21:45)
[2021-09-20] MEDS: CEFEPIME 1,000 MG in SYRINGE 0 ML IV SCH (09:38)
[2021-09-20] MEDS ORDERED: VANCOMYCIN HCL 250 MG in DEXTROSE 5% 100 ML IV ONE (10:30)
--- NOTE | 2021-09-20 10:34 | Pharmacy Report ---
Pharmacy [facility] Short Note - Date of Service September 20, 2021 - Assessment & Plan Assessment * 65 year old M receiving cefepime and vancomycin empirically x48 hours for treatment of possible sepsis * Nasal MRSA positive * Discussed on ICU rounds. Per Dr. Ohara - continue for another 24 hours to complete 48 hours of each. Anticipate discontinuation tomorrow Vancomycin * Will dose via level for HD * Patient dialyzed yesterday. Unlikely to be dialyzed a 2nd time today, but nephrology note not yet entered and pt did miss an outpatient session recently * Will give small supplemental dose now for low trough level of 9.8 mcg/mL this AM. May require additional dose later today if HD performed again Plan * Vancomycin 250 mg IV x1 now. Additional vancomycin tonight if patient is dialyzed. * Random level with AM labs Pharmacy will continue to follow and will adjust dose/frequency as necessary. Thank you.
[2021-09-20] MEDS: MIDODRINE HCL 2.5 MG TAB PO SCH ×3 (11:36→18:51)
[2021-09-20] MEDS: SERTRALINE HCL 100 MG TABLET PO SCH (11:36)
[2021-09-20] MEDS: HEPARIN SOD 5,000 UNIT/0.5 ML VIAL SC SCH ×2 (11:36→21:45)
[2021-09-20] MEDS: SERTRALINE HCL 50 MG TABLET PO SCH (11:36)
--- NOTE | 2021-09-20 11:55 | CT Scan Report ---
HEAD CT NONCONTRAST CT DOSE: 1382.10 mGy.cm HISTORY: Altered mental status. TECHNIQUE: Multiaxial CT images of the head were performed without the use of intravenous contrast. A utomated exposure control was utilized for this study. A dose lowering technique was utilized adheri ng to the principles of ALARA. Comparison: Head CT 04/22/2019. Findings: Mild mucosal thickening within the left maxillary sinus. The mastoid air cells are clear. M otion artifact. The calvarium and skull base are intact. There is no mass, hematoma, midline shift, a cute infarct. White matter hypodensity is nonspecific but suggestive of microvascular ischemic change . The ventricles and sulci demonstrate mild age-related involutional changes. Old small infarct withi n the right cerebellar hemisphere and right exit upper lobe. There is also an old lacunar infarct wit hin the right thalamus. These remain unchanged. Impression: Mild motion artifact. No significant change compared to the prior study. No acute intracranial abnorm ality. ACT 112: Negative or not required by law. Electronically signed by: Emilio Le M.D. 09/20/2021 11:54 AM
--- NOTE | 2021-09-20 12:07 | Nephrology Progress Note ---
Date of Service September 20, 2021 Assessment & Plan Admission and Anticipated Discharge Date Admission Date: September 18, 2021 Subjective S--Looks weak and sick. BP still low. NPO. PHYSICAL EXAMINATION: GENERAL: Chronically ill-appearing white male who looks lot older than his stated age. He appears to be awake and alert, but really cannot get any meaningful history from the patient. He is yelling, shouting and cursing to everyone. HEENT: Mucous membranes are moist. NECK: Supple. CHEST: Bilateral decreased breath sounds, occasional crackles. CARDIOVASCULAR: S1 and S2, regular. ABDOMEN: Soft, nontender. EXTREMITIES: Show multiple skin lesions left BKA. LABORATORY TEST: Potassium is 3.2 phos is 1.2 ASSESSMENT AND PLAN: A 65-year-old male with long-term uncontrolled diabetes with all the classic complications associated with diabetes including end-stage renal disease on hemodialysis Saturday, Saturday, Saturday as well as severe vascular disease all over his body. He is now admitted with weakness, fatigue, possible GI bleed and sepsis. 1. End-stage renal disease. He has not been eating or drinking much for the last few days that is evident by his low potassium of 3.2 and phos of 1.2 d espite missing dialysis. His blood pressure is also quite low, although it is worth noting that he chronically has low blood pressure. At this time, he is getting Levophed drip, which we will continue to help with dialysis. We will try to take about 1-1.5 kilo off in about 3 hours' time tomorrow with dialysis. He will be done on a 3K bath given the low potassium. Agree with higher dose of midodrine. Give 30 mmol k phos. Support BP. rule out sepsis and treat accordingly. 2. Possible infection. He is on broad-spectrum antibiotics and we will defer to primary team. 3. Possible gastrointestinal bleed. He was having some melanotic stools. Hemoglobin has been stable so unlikely to be major issue here. But given that he is already on Eliquis, we will not be giving heparin with dialysis Results & Data ([facility]) Vital Signs (Past 12 Hours) Vital Signs Temp Pulse Pulse Resp BP BP Pulse Ox 09/20/21 08:00 36.3 C L 107 H 18 85/44 L 96 09/20/21 07:02 106 H 21 45/36 L 94 09/20/21 07:00 104 H 23 96 09/20/21 06:31 93 H 20 99/61 L 97 09/20/21 06:30 107 H 23 96 09/20/21 06:01 108 H 18 103/42 L 96 09/20/21 06:00 101 H 17 97 09/20/21 05:31 103 H 20 88/51 L 96 09/20/21 05:30 103 H 21 96 09/20/21 05:05 67/39 L 09/20/21 05:00 110 H 15 97 09/20/21 04:32 94 H 19 75/51 L 97 09/20/21 04:30 98 H 12 96 09/20/21 04:01 36.4 C L 94 H 16 91/49 L 98 09/20/21 04:00 92 H 17 97 09/20/21 03:32 101 H 16 89/56 L 97 09/20/21 03:30 99 H 14 97 09/20/21 03:01 102 H 15 69/48 L 95 09/20/21 03:00 97 H 14 95 09/20/21 02:59 97 H 14 113/53 L 98 09/20/21 02:30 97 H 13 97 09/20/21 02:01 100 H 15 80/56 L 95 09/20/21 02:00 106 H 17 97 09/20/21 01:53 96 H 11 L 73/52 L 98 09/20/21 01:31 103 H 14 96 09/20/21 01:30 91 H 11 L 96 09/20/21 01:26 95 H 12 68/59 L 97 09/20/21 01:17 95 H 13 58/47 L 98 09/20/21 01:00 90 17 97 09/20/21 00:30 93 H 16 96
[2021-09-20 16:13] LABS: iSTAT Allen Test Pass; iSTAT Art Bld Gas pCO2 Correct 54 mmHg (35-46); iSTAT Art Bld Gas pH Corrected 7.273 (7.35-7.45); iSTAT Arterial Blood Gas HCO3 25 meg/L (19-24); iSTAT Arterial Blood Gas pCO2 56 mmHg (35-46); iSTAT Arterial Blood Gas pH 7.26 (7.35-7.45); iSTAT Arterial Blood Gas pO2 < 32 mmHg (80-95); iSTAT Arterial Blood Gas pO2 C 26; iSTAT Carbon Dioxide 27 mmol/L (24-31); iSTAT Hematocrit 37 % (42-52); iSTAT Hemoglobin 12.6 g/dl (14.0-18.0); iSTAT Potassium 3.4 mmol/L (3.3-5.0); iSTAT Site R Radial; iSTAT Sodium 141 mmol/L (135-144)
[2021-09-20 16:37] LABS: iSTAT Allen Test Pass; iSTAT Art Bld Gas pCO2 Correct 43 mmHg (35-46); iSTAT Art Bld Gas pH Corrected 7.373 (7.35-7.45); iSTAT Arterial Blood Gas HCO3 25 meg/L (19-24); iSTAT Arterial Blood Gas pCO2 44 mmHg (35-46); iSTAT Arterial Blood Gas pH 7.36 (7.35-7.45); iSTAT Arterial Blood Gas pO2 < 32 mmHg (80-95); iSTAT Arterial Blood Gas pO2 C 15; iSTAT Carbon Dioxide 26 mmol/L (24-31); iSTAT Hematocrit 33 % (42-52); iSTAT Hemoglobin 11.2 g/dl (14.0-18.0); iSTAT Potassium 3.4 mmol/L (3.3-5.0); iSTAT Site R Radial; iSTAT Sodium 137 mmol/L (135-144)
[2021-09-20] MEDS: LATANOPROST 0.005% OP SOLN 2.5 ML BTL OPL SCH (21:45)
[2021-09-20] MEDS: QUEtiapine FUMARATE 25 MG TABLET PO SCH (21:50)
[2021-09-21] MEDS: NOREPINEPHRINE/D5W 8 MG/508 ML BAG IV SCH ×2 (05:05→21:29)
[2021-09-21 05:29] LABS: iSTAT Allen Test Pass; iSTAT Art Bld Gas pCO2 Correct 28 mmHg (35-46); iSTAT Art Bld Gas pH Corrected 7.489 (7.35-7.45); iSTAT Arterial Blood Gas HCO3 21 meg/L (19-24); iSTAT Arterial Blood Gas pCO2 28 mmHg (35-46); iSTAT Arterial Blood Gas pH 7.48 (7.35-7.45); iSTAT Arterial Blood Gas pO2 218 mmHg (80-95); iSTAT Arterial Blood Gas pO2 C 216; iSTAT Carbon Dioxide 22 mmol/L (24-31); iSTAT FiO2 60 %; iSTAT Hematocrit 35 % (42-52); iSTAT Hemoglobin 11.9 g/dl (14.0-18.0); iSTAT Potassium 3.6 mmol/L (3.3-5.0); iSTAT Site R Radial; iSTAT Sodium 137 mmol/L (135-144)
[2021-09-21] MEDS: LEVOTHYROXINE SODIUM 88 MCG TABLET PO SCH (06:00)
[2021-09-21] MEDS ORDERED: EPOETIN ALFA 10,000 UNITS/ML VIAL IV SCH (07:00)
[2021-09-21] MEDS ORDERED: SODIUM CHLORIDE 0.9% 1000ML 1,000 ML IV PRN (07:00)
[2021-09-21 07:16] LABS: Albumin Level 2.1 gm/dl (3.4-5.0); BUN Creatinine Ratio 4.6 (10-20); Bilirubin Direct 0.3 mg/dl (0-0.2); Bilirubin,Total 0.8 mg/dl (0.2-1.0); Calcium 7.3 mg/dl (8.5-10.1); Est GFR (African American) 22.3 ml/min; Est GFR (Non-African American) 19.3 ml/min; Magnesium 1.8 mg/dl (1.7-2.4); Phosphorus 3.5 mg/dl (2.5-4.9); Total Protein 5.3 gm/dl (6.0-8.3)
--- NOTE | 2021-09-21 09:33 | Nephrology Progress Note ---
Date of Service September 21, 2021 Assessment & Plan Admission and Anticipated Discharge Date Admission Date: September 18, 2021 Subjective Subjective S--Looks weak and sick. Not interactive BP still low. NPO. PHYSICAL EXAMINATION: GENERAL: Chronically ill-appearing white male who looks lot older than his stated age. He appears to be awake and alert, but really cannot get any meaningful history from the patient. He is yelling, shouting and cursing to everyone. HEENT: Mucous membranes are moist. NECK: Supple. CHEST: Bilateral decreased breath sounds, occasional crackles. CARDIOVASCULAR: S1 and S2, regular. ABDOMEN: Soft, nontender. EXTREMITIES: Show multiple skin lesions left BKA. LABORATORY TEST: Phos and K normal today ASSESSMENT AND PLAN: A 65-year-old male with long-term uncontrolled diabetes with all the classic complications associated with diabetes including end-stage renal disease on hemodialysis Saturday, Saturday, Saturday as well as severe vascular disease all over his body. He is now admitted with weakness, fatigue, possible GI bleed and sepsis. 1. End-stage renal disease. He has not been eating or drinking much for the last few days that is evident by his low potassium of 3.2 and phos of 1.2 despite missing dialysis. His blood pressure is also quite low, although it is worth noting that he chronically has low blood pressure. At this time, he is getting Levophed drip, which we will continue to help with dialysis. Agree with higher dose of midodrine. Support BP. Dialysis later today--3hr 1 kilo and 3k bath Lytes normal today 2. Possible infection. He is on broad-spectrum antibiotics and we will defer to primary team. 3. Possible gastrointestinal bleed. He was having some melanotic stools. Hemoglobin has been stable so unlikely to be major issue here. But given that he is already on Eliquis, we will not be giving heparin with dialysis Results & Data ([facility]) Vital Signs (Past 12 Hours) Vital Signs Temp Pulse Resp BP Pulse Ox 09/21/21 06:55 91 H 23 98 09/21/21 06:00 110 H 22 92/57 L 94 09/21/21 05:57 96 H 18 107/81 93 09/21/21 05:01 92 H 15 96 09/21/21 05:00 103 H 17 96 09/21/21 04:30 102 H 18 100/65 96 04/21/22 04:02 90 18 77/61 L 95 09/21/21 04:00 102 H 22 97 09/21/21 03:45 108 H 24 95 09/21/21 03:31 97 H 18 108/51 L 99 09/21/21 03:27 36.3 C L 90 16 96/62 L 95 09/21/21 03:00 90 18 99 09/21/21 02:47 91 H 10 L 62/45 L 99 09/21/21 02:45 90 19 100 09/21/21 02:44 90 21 68/51 L 98 09/21/21 02:02 93 H 18 99 09/21/21 02:00 95 H 14 96 09/21/21 01:30 117 H 24 110/83 98 09/21/21 01:00 36.3 C L 128 H 24 99/53 L 100 09/21/21 00:31 82 24 78/57 L 100 09/21/21 00:00 90 16 100 09/20/21 23:54 93 H 22 80/45 L 100 09/20/21 23:31 94 H 17 96 09/20/21 23:15 110 H 30 H 93 09/20/21 23:13 101 H 20 99/84 L 95 09/20/21 23:06 94 H 09/20/21 23:00 94 H 18 94 09/20/21 22:32 109 H 20 88/67 L 93 09/20/21 22:22 116 H 20 74/60 L 94 09/20/21 22:17 116 H 18 95 09/20/21 22:15 117 H 21 72/55 L 94 09/20/21 22:00 122 H 23 95
--- NOTE | 2021-09-21 10:25 | Critical Care Progress Note ---
Date of Service September 21, 2021 Assessment & Plan (1) Admitted to intensive care unit: Plan: Reason Critically Ill: 65-year-old male with end-stage renal disease and multiple comorbidities presenting with concerns for melanotic stools and hypotension. NEURO - * Delirious. Avoid sedating medications. * MRI brain and EEG ordered CARDIAC/VASCULAR - * Hypotension: * Midodrine increased to 5 mg 3 times daily. He has been noncompliant. * Vascular access is proving difficult given his vasculopathy. * Continue as needed Levophed to maintain mean arterial pressure above 65. * History of A. fib. Currently rate controlled. Holding anticoagulation due to concern dark stools earlier. * Echo reviewed * Continue low dose levo RESPIRATORY - * No significant issues at present. GI/NUTRITION - * Minimal p.o. intake. Mild transaminitis. Continue to trend. RENAL/LYTES - * End-stage renal disease: * Replacing phosphorus and potassium. * Consult nephrology for ongoing management. * Anion gap acidosis improved postdialysis - * Anuric ENDO - * DMII, Hypothyroid * BSGs per unit protocol. ISS --> gtt per unit policy. HEME - * Stable H&H * Monitor for drop w/ concerns of ?? GIB * Restarting heparin BID ID - * Blood cultures negative to date. Continue empiric antibiotics for 48 hours. LINES/IV ACCESS - * LEFT EJ * LEFT Femoral HD Cath DVT PROPHYLAXIS - * Heparin subq * SCDs Consult to palliative care given patient's overall prognosis which is very poor. I have personally spent 36 minutes of critical care time in the direct management of this patient. This is a life/limb threatening event. This includes time spent evaluating patient, direct bedside care, chart review, placing orders, interpretation of diagnostic studies, discussion with consultants, patient, and family members, as well as other required patient management activities. This time is exclusive of all separately billable procedures, and teaching time and separate from and in addition to any other critical care service time. Thank you for allowing us to participate in the care of this patient. Please refer to my attending physician's documentation for any further recommendations. (2) Hypotension: (3) Chronic kidney disease with end stage renal failure on dialysis: (4) Hypoglycemia: (5) Lactic acidosis: (6) PAD (peripheral artery disease): Admission and Anticipated Discharge Date Admission Date: September 18, 2021 Subjective Remains confused. No significant changes since yesterday. Taken off BiPAP this morning. Review of Systems Review of Systems: Unobtainable due to cognitive status Physical Exam Physical Exam: VITAL SIGNS - Vital signs and nursing notes were reviewed. GENERAL - 65-year-old male appearing older than his stated age who is in no acute distress. SKIN - Multiple wounds in various stages noted throughout. HEAD - NC/AT. EYES - PERRL with EOMI bilaterally. Sclera anicteric. EARS - No deformities of external structures noted on gross examination bilaterally. NOSE - Midline and without cyanosis. No epistaxis or purulent drainage noted. MOUTH/OROPHARYNX - Without perioral cyanosis. Buccal mucosa pink and dry. Poor dentition. NECK - Neck with FROM. Supple to palpation. No nuchal rigidity. LUNGS - Chest wall symmetric without accessory muscle use, intercostals retractions, or central cyanosis. Normal vesicular breath sounds CTA B/L. No wheezes, rales, or rhonchi appreciated. CARDIAC - RRR with S1/S2. No murmur, rubs, or gallops appreciated. ABDOMEN - Abdominal contour obese without pulsations or visible masses. BS normoactive all four quadrants. No tenderness, palpable masses, hepatosplenomegaly, or ascites noted. EXTREMITIES - Poor peripheral pulses throughout. Poor vasculature. BKA of the LLE. NEUROLOGIC - Cranial nerves II through XII grossly intact. PSYCH -awake, alert, and oriented. He is aware of location and year. He can intermittently provide specific information including birthdate. Otherwise, his information provided and is inconsistent at best. Results & Data Results & Data ([facility]) Vital Signs (Past 12 Hours) Vital Signs Temp Pulse Resp BP Pulse Ox 09/21/21 06:55 91 H 23 98 09/21/21 06:00 110 H 22 92/57 L 94 09/21/21 05:57 96 H 18 107/81 93 09/21/21 05:01 92 H 15 96 09/21/21 05:00 103 H 17 96 09/21/21 04:30 102 H 18 100/65 96 09/21/21 04:02 90 18 77/61 L 95 09/21/21 04:00 102 H 22 97 09/21/21 03:45 108 H 24 95 09/21/21 03:31 97 H 18 108/51 L 99 09/21/21 03:27 36.3 C L 90 16 96/62 L 95 09/21/21 03:00 90 18 99 09/21/21 02:47 91 H 10 L 62/45 L 99 09/21/21 02:45 90 19 100 09/21/21 02:44 90 21 68/51 L 98 09/21/21 02:02 93 H 18 99 09/21/21 02:00 95 H 14 96 09/21/21 01:30 117 H 24 110/83 98 09/21/21 01:00 36.3 C L 128 H 24 99/53 L 100 09/21/21 00:31 82 24 78/57 L 100 09/21/21 00:00 90 16 100 09/20/21 23:54 93 H 22 80/45 L 100 09/20/21 23:31 94 H 17 96 09/20/21 23:15 110 H 30 H 93 09/20/21 23:13 101 H 20 99/84 L 95 09/20/21 23:06 94 H 09/20/21 23:00 94 H 18 94 09/20/21 22:32 109 H 20 88/67 L 93 09/20/21 22:22 116 H 20 74/60 L 94 Coding Level of Care Code Critical Care 1st 30-74 mins Diagnoses Admitted to intensive care unit Z78.9 Hypotension I95.9 Chronic kidney disease with end stage renal failure on dialysis N18.6; Z99.2 Hypoglycemia E16.2 Lactic acidosis E87.2 PAD (peripheral artery disease) I73.9 Time Spent (min) 36
--- NOTE | 2021-09-21 11:28 | Magnetic Resonance Report ---
MR brain wo con HISTORY: 65 years-old Male encephalopathy acutely altered mental status with encephalopathy COMPARISON: Head CT 09/20/2021 TECHNIQUE: Multiplanar multisequence MRI of the brain was obtained without the use of IV contrast FINDINGS: There is no restricted diffusion. The midline structures appear unremarkable. Motion degraded exam. I nvolutional changes. Moderate T2/FLAIR hyperintense foci are noted throughout the white matter. Encep halomalacia from chronic right occipital infarct. Chronic infarct of the right thalamus with blooming artifact just chronic hemosiderin. Small chronic infarcts of the left parieto-occipital lobes. Encep halomalacia of the right cerebellar hemisphere. Cerebral venous sinuses and major arterial flow voids appear patent. Mild mucosal thickening of the l eft maxillary sinus. The skull, orbits and soft tissues are unremarkable. IMPRESSION: 1. Motion degraded exam. No acute or subacute infarct. 2. Involutional changes with moderate chronic microvascular ischemic disease. 3. Chronic infarcts of the posterior circulation and right cerebellum. 4. Chronic lacunar infarct of the right thalamus. ACT 112: Negative or not required by law. The above report was generated using voice recognition software. It may contain grammatical, syntax o r spelling errors. Electronically signed by: Rey Kulkarni M.D. 09/21/2021 11:26 AM
--- NOTE | 2021-09-21 12:03 | XRay Report ---
XR chest 1V portable CLINICAL HISTORY: hypoxia TECHNIQUE: Single frontal radiograph of the chest was obtained. Comparison: Comparison is made to chest one view 09/18/2021 FINDINGS: Enteric tube side-port lies below the diaphragm. The cardiomediastinal silhouette is normal. Multifoc al airspace opacities are seen. Lungs are underinflated. No evidence of pleural effusion or pneumotho rax. IMPRESSION: 1. Interval development of multifocal airspace opacities which may represent atelectasis, pneumonia, and/or aspiration. 2. Enteric tube is in satisfactory position. ACT 112: Negative or not required by law. Electronically signed by: Maulik Gong M.D. 09/21/2021 12:02 PM
[2021-09-21] MEDS: MIDODRINE HCL 2.5 MG TAB PO SCH ×3 (12:13→18:36)
[2021-09-21] MEDS: HEPARIN SOD 5,000 UNIT/0.5 ML VIAL SC SCH ×2 (12:45→20:51)
[2021-09-21] MEDS: SERTRALINE HCL 50 MG TABLET PO SCH (12:46)
[2021-09-21] MEDS: SERTRALINE HCL 100 MG TABLET PO SCH (12:46)
[2021-09-21] MEDS: PANTOprazole 40 MG in SYRINGE 0 ML IV SCH ×2 (12:48→20:51)
--- NOTE | 2021-09-21 13:04 | Electroencephalogram ---
EEG Procedure Note Date of Service September 21, 2021 Start / End Times Start Time: 12:37 PM End Time: 12:[address] Espinal History Encephalopathy Home Medication List Medication Instructions Recorded Confirmed Type apixaban 5 mg tablet (Eliquis) 5 mg PO BID #60 tab 02/17/19 09/18/21 History midodrine 2.5 mg tablet 2.5 mg PO BID #30 tab 02/17/19 09/18/21 History acetaminophen 325 mg tablet 650 mg PO Q6H PRN MDD 3 GRAMS/24 03/20/19 09/18/21 History (Tylenol) HOURS atorvastatin 40 mg tablet (Lipitor) 40 mg PO HS 03/20/19 09/18/21 History fludrocortisone 0.1 mg tablet 0.1 mg PO DAILY 03/20/19 09/18/21 History loratadine 10 mg tablet (Claritin) 10 mg PO QPM 03/20/19 09/18/21 History omeprazole 20 mg tablet,delayed 20 mg PO DAILY 03/20/19 09/18/21 History release tramadol 50 mg tablet (Ultram) 50 mg PO 3XWK 03/20/19 09/18/21 History levothyroxine 75 mcg tablet 75 mcg PO DAILYBB 04/27/19 09/18/21 History sertraline 100 mg tablet 100 mg PO DAILY 04/27/19 09/18/21 History sucralfate 1 gram tablet 1 g PO BID 10/12/19 09/18/21 History Lactobacillus acidophilus 10,000 mmu cells PO BID 05/07/20 09/18/21 History gabapentin 400 mg capsule 400 mg PO DAILY 05/07/20 09/18/21 History latanoprost 0.005 % eye drops 1 drp OPL HS 07/04/20 09/18/21 History (Xalatan) patiromer calcium sorbitex 8.4 16.8 g PO DAILY 07/04/20 09/18/21 History gram oral powder packet (Veltassa) cinacalcet 30 mg tablet (Sensipar) 30 mg PO DAILY 07/25/20 09/18/21 History albuterol sulfate 90 mcg/actuation 2 puff INHALATION Q4H PRN 05/05/21 09/18/21 History aerosol inhaler (Ventolin HFA) lidocaine 5 % topical patch 1 patch TRANSDERMAL .EVERY 24 05/05/21 09/18/21 History HOURS PRN quetiapine 25 mg tablet 25 mg PO HS 05/05/21 09/18/21 History ondansetron HCl 4 mg tablet 4 mg PO Q6H PRN 08/03/21 09/18/21 History oxycodone 5 mg tablet 5 mg PO Q4H PRN 08/03/21 09/18/21 History cadexomer iodine 0.9 % topical gel 40 g TOPICAL DAILY 30 Days #40 g 08/10/21 09/18/21 Rx (Iodosorb) rizatriptan 5 mg disintegrating See Rx Instructions .ROUTE .COMPLEX 09/18/21 09/18/21 History tablet sertraline 25 mg tablet 25 mg PO DAILY 09/18/21 09/18/21 History Inpatient Medication List Dextrose (Dextrose 50% 50 Ml Syringe) 25 - 50 ml IV UD PRN; Protocol PRN Reason: Hypoglycemia Protocol Stop: 10/19/21 00:38 Last Admin: 09/19/21 23:56 Dose: 50 ml Documented by: [id number] Fludrocortisone Acetate (Fludrocortisone Acetate 0.1 Mg Tab) 0.1 mg PO MoWeFr@0400 [facility] Stop: 10/20/21 03:59 Last Admin: 09/20/21 04:16 Dose: 0.1 mg Documented by: [id number] Heparin Sodium (Porcine) (Heparin Sod 5,000 Unit/0.5 Ml Vial) 5,000 units SC BID [facility] Stop: 10/20/21 10:29 Last Admin: 09/21/21 12:45 Dose: 5,000 units Documented by: [id number] Admin: 09/20/21 21:45 Dose: 5,000 units Documented by: [id number] Admin: 09/20/21 11:36 Dose: 5,000 units Documented by: [id number] Norepinephrine Bitartrate (Levophed/D5w) 8 mg in 508 mls @ 6.744 mls/hr IV .Q24H [facility]; Protocol Stop: 10/19/21 00:44 Last Titration: 09/21/21 08:42 Dose: 0.02 mcg/kg/min, 6.7 mls/hr Documented by: [id number] Titration: 09/21/21 06:59 Dose: 0.03 mcg/kg/min, 10.1 mls/hr Documented by: [id number] Cosigned by: [id number] Admin: 09/21/21 05:05 Dose: 0.03 mcg/kg/min, 10.1 mls/hr Documented by: [id number] Cosigned by: [id number] Titration: 09/21/21 05:05 Dose: 0.03 mcg/kg/min, 10.1 mls/hr Documented by: [id number] Cosigned by: [id number] Titration: 09/21/21 02:49 Dose: 0.03 mcg/kg/min, 10.1 mls/hr Documented by: [id number] Titration: 09/21/21 01:35 Dose: 0 mcg/kg/min, 0 mls/hr Documented by: [id number] Titration: 09/20/21 22:19 Dose: 0.03 mcg/kg/min, 10.1 mls/hr Documented by: [id number] Titration: 09/20/21 20:19 Dose: 0.02 mcg/kg/min, 6.7 mls/hr Documented by: [id number] Titration: 09/20/21 19:30 Dose: 0.03 mcg/kg/min, 10.1 mls/hr Documented by: [id number] Titration: 09/20/21 19:13 Dose: 0.05 mcg/kg/min, 16.9 mls/hr Documented by: [id number] Cosigned by: [id number] Titration: 09/20/21 07:06 Dose: 0.05 mcg/kg/min, 16.9 mls/hr Documented by: [id number] Cosigned by: [id number] Titration: 09/20/21 05:07 Dose: 0.05 mcg/kg/min, 16.9 mls/hr Documented by: [id number] Titration: 09/20/21 01:30 Dose: 0.04 mcg/kg/min, 13.5 mls/hr Documented by: [id number] Titration: 09/20/21 00:56 Dose: 0.03 mcg/kg/min, 10.1 mls/hr Documented by: [id number] Admin: 09/19/21 23:57 Dose: 0.05 mcg/kg/min, 16.9 mls/hr Documented by: [id number] Cosigned by: [id number] Titration: 09/19/21 23:57 Dose: 0.05 mcg/kg/min, 16.9 mls/hr Documented by: [id number] Cosigned by: [id number] Titration: 09/19/21 19:06 Dose: 0.05 mcg/kg/min, 16.9 mls/hr Documented by: [id number] Cosigned by: [id number] Titration: 09/19/21 18:03 Dose: 0.05 mcg/kg/min, 16.9 mls/hr Documented by: [id number] Titration: 09/19/21 15:00 Dose: 0.15 mcg/kg/min, 50.6 mls/hr Documented by: [id number] Titration: 09/19/21 13:33 Dose: 0.1 mcg/kg/min, 33.7 mls/hr Documented by: [id number] Titration: 09/19/21 12:56 Dose: 0.05 mcg/kg/min, 16.9 mls/hr Documented by: [id number] Titration: 09/19/21 10:02 Dose: 0 mcg/kg/min, 0 mls/hr Documented by: [id number] Admin: 09/19/21 00:50 Dose: 0.05 mcg/kg/min, 16.9 mls/hr Documented by: [id number] Cosigned by: [id number] Pantoprazole Sodium 40 mg/ (Syringe) 10 mls @ 5 mls/min IV BID [facility] Stop: 10/19/21 00:44 Last Admin: 09/21/21 12:48 Dose: 5 mls/min Documented by: [id number] Admin: 09/20/21 21:45 Dose: 5 mls/min Documented by: [id number] Admin: 09/20/21 09:38 Dose: 5 mls/min Documented by: [id number] Admin: 09/19/21 19:42 Dose: 5 mls/min Documented by: [id number] Admin: 09/19/21 10:16 Dose: 5 mls/min Documented by: [id number] Admin: 09/19/21 02:06 Dose: 5 mls/min Documented by: [id number] Latanoprost (Latanoprost 0.005% Op Soln 2.5 Ml Btl) 1 drops OPL HS [facility] Stop: 10/19/21 20:59 Last Admin: 09/20/21 21:45 Dose: 1 drops Documented by: [id number] Admin: 09/19/21 19:42 Dose: 1 drops Documented by: [id number] Levothyroxine Sodium (Levothyroxine Sodium 88 Mcg Tablet) 88 mcg PO DAILYBB [facility] Stop: 10/20/21 06:29 Last Admin: 09/21/21 06:00 Dose: Not Given Documented by: [id number] Admin: 09/20/21 04:16 Dose: 88 mcg Documented by: [id number] Midodrine (Midodrine Hcl 2.5 Mg Tab) 5 mg PO TID@0800,1200,1700 [facility] Stop: 10/19/21 08:14 Last Admin: 09/21/21 12:46 Dose: 5 mg Documented by: [id number] Admin: 09/21/21 12:13 Dose: Not Given Documented by: [id number] Admin: 09/20/21 18:51 Dose: 5 mg Documented by: [id number] Admin: 09/20/21 13:00 Dose: 5 mg Documented by: [id number] Admin: 09/20/21 11:36 Dose: Not Given Documented by: [id number] Admin: 09/19/21 18:37 Dose: Not Given Documented by: [id number] Admin: 09/19/21 15:05 Dose: Not Given Documented by: [id number] Admin: 09/19/21 09:29 Dose: Not Given Documented by: [id number] Miscellaneous (Remove Lidoderm Patch) 1 ea N/A DAILY@2100 [facility] Stop: 10/19/21 20:59 Last Admin: 09/20/21 21:46 Dose: Not Given Documented by: [id number] Admin: 09/19/21 19:43 Dose: Not Given Documented by: [id number] Miscellaneous (Carbohydrates For Hypoglycemia ) 15 - 30 gm PO UD PRN PRN Reason: Hypoglycemia Protocol Stop: 10/19/21 00:38 Last Admin: 09/19/21 09:20 Dose: 15 gm Documented by: [id number] Patiromer (Patiromer Calcium Sorbitex 8.4 Gm Pack) 16.8 gm PO DAILY [facility] Stop: 10/19/21 08:59 Last Admin: 09/19/21 09:46 Dose: Not Given Documented by: [id number] Quetiapine Fumarate (Quetiapine Fumarate 25 Mg Tablet) 25 mg PO HS [facility] Stop: 10/19/21 20:59 Last Admin: 09/20/21 21:50 Dose: Not Given Documented by: [id number] Admin: 09/19/21 19:43 Dose: 25 mg Documented by: [id number] Sertraline HCl (Sertraline Hcl 100 Mg Tablet) 100 mg PO DAILY [facility] Stop: 10/19/21 11:59 Last Admin: 09/21/21 12:46 Dose: 100 mg Documented by: [id number] Admin: 09/20/21 11:36 Dose: Not Given Documented by: [id number] Admin: 09/19/21 15:05 Dose: Not Given Documented by: [id number] Sertraline HCl (Sertraline Hcl 50 Mg Tablet) 25 mg PO DAILY [facility] Stop: 10/19/21 11:59 Last Admin: 09/21/21 12:46 Dose: 25 mg Documented by: [id number] Admin: 09/20/21 11:36 Dose: Not Given Documented by: [id number] Admin: 09/19/21 15:05 Dose: Not Given Documented by: [id number] Discontinued Medications Dextrose (Dextrose 50% 50 Ml Syringe) 50 ml IV NOW ONE Stop: 09/18/21 17:58 Last Admin: 09/18/21 18:02 Dose: 50 ml Documented by: [id number] Fludrocortisone Acetate (Fludrocortisone Acetate 0.1 Mg Tab) 0.1 mg PO NOW STA Stop: 09/19/21 00:57 Last Admin: 09/19/21 02:07 Dose: 0.1 mg Documented by: [id number] Fludrocortisone Acetate (Fludrocortisone Acetate 0.1 Mg Tab) 0.1 mg PO SuTuThSa@0800 [facility] Stop: 10/19/21 07:59 Last Admin: 09/19/21 09:29 Dose: Not Given Documented by: [id number] Sodium Chloride (Nss) 500 mls @ 999 mls/hr IV .Q31M [facility] Stop: 09/18/21 16:57 Last Infusion: 09/18/21 17:45 Dose: 500 mls/hr Documented by: [id number] Admin: 09/18/21 17:11 Dose: 999 mls/hr Documented by: [id number] Pantoprazole Sodium 40 mg/ (Syringe) 10 mls @ 5 mls/min IV NOW ONE Stop: 09/18/21 16:28 Last Admin: 09/18/21 18:25 Dose: 5 mls/min Documented by: [id number] Famotidine (Pepcid 20mg Iv Push) 20 mg in 5 mls @ 2.5 mls/min IV NOW STA Stop: 09/18/21 16:28 Last Admin: 09/18/21 17:07 Dose: 2.5 mls/min Documented by: [id number] Ceftriaxone Sodium (Rocephin) 1,000 mg in 50 mls @ 100 mls/hr IV NOW STA Stop: 09/18/21 19:03 Last Infusion: 09/18/21 19:40 Dose: 0 mls/hr Documented by: [id number] Admin: 09/18/21 19:08 Dose: 100 mls/hr Documented by: [id number] Sodium Bicarbonate 150 meq/ (Dextrose) 1,150 mls @ 100 mls/hr IV .[id number] [facility] Stop: 09/19/21 08:59 Last Infusion: 09/19/21 09:28 Dose: 0 mls/hr Documented by: [id number] Admin: 09/18/21 22:01 Dose: 100 mls/hr Documented by: [id number] Vancomycin HCl 1,750 mg/ (Sodium Chloride) 535 mls @ 200 mls/hr IV NOW ONE Stop: 09/19/21 11:25 Last Infusion: 09/19/21 12:21 Dose: 0 mls/hr Documented by: [id number] Admin: 09/19/21 09:28 Dose: 200 mls/hr Documented by: [id number] Cefepime HCl 1,000 mg/ Syringe 11.3 mls @ 5.5 mls/min IV Q24H [facility] Stop: 09/21/21 08:59 Last Admin: 09/20/21 09:38 Dose: 5.5 mls/min Documented by: [id number] Admin: 09/19/21 09:28 Dose: 5.5 mls/min Documented by: [id number] Albumin Human (Albumin 5%) 250 mls @ 500 mls/hr IV ONE ONE Stop: 09/19/21 13:14 Last Infusion: 09/19/21 15:05 Dose: 0 mls/hr Documented by: [id number] Admin: 09/19/21 12:56 Dose: 500 mls/hr Documented by: [id number] Potassium Phosphate 30 mmol/ (Sodium Chloride) 510 mls @ 88 mls/hr IV ONE ONE Stop: 09/20/21 14:32 Last Infusion: 09/20/21 15:47 Dose: 0 mls/hr Documented by: [id number] Admin: 09/20/21 09:37 Dose: 88 mls/hr Documented by: [id number] Vancomycin HCl 250 mg/ (Dextrose) 105 mls @ 132 mls/hr IV NOW ONE Stop: 09/20/21 11:17 Last Infusion: 09/20/21 12:45 Dose: 0 mls/hr Documented by: [id number] Admin: 09/20/21 11:37 Dose: 132 mls/hr Documented by: [id number] Levothyroxine Sodium (Levothyroxine Sodium 75 Mcg Tablet) 75 mcg PO DAILYBB [facility] Stop: 10/19/21 06:29 Last Admin: 09/19/21 06:33 Dose: Not Given Documented by: [id number] Midodrine (Midodrine Hcl 2.5 Mg Tab) 2.5 mg PO ONE STA Stop: 09/19/21 01:00 Last Admin: 09/19/21 02:07 Dose: 2.5 mg Documented by: [id number] Norepinephrine Bitartrate (Norepinephrine/D5w 8 Mg/508 Ml) Confirm Administered Dose 8 mg IV .STK-MED ONE Stop: 09/19/21 00:37 Last Admin: 09/19/21 00:36 Dose: 8 mg Documented by: [id number] Sodium Bicarbonate (Sodium Bicarb 8.4% Inj 50 Meq/50 Ml Syr) 50 meq IV NOW STA Stop: 09/18/21 21:25 Last Admin: 09/18/21 21:40 Dose: 50 meq Documented by: [id number] Description This is a 21 electrode EEG with a single channel dedicated to limited EKG. The electrodes were placed in accordance with the International 10-20 system. The background rhythm consists of low amplitude generalized slowing with a frequency of about 4-1/2 Hz. Photic stimulation is unremarkable. Hyperventilation is not performed. There is occasional movement artifact. There is no focal slowing. There are no epileptiform abnormalities. Interpretation Abnormal awake/drowsy EEG revealing evidence of a severe nonspecific encephalopathy. No epileptiform abnormalities observed. [facility] EEG Procedure Codes Indication for Procedure (1) Encephalopathy acute: Neurology Neurology: 53264 EEG include record awake & drowsy
[2021-09-21] MEDS ORDERED: ETOMIDATE 2 MG/ML 20 ML VIAL IV ONE ×2 (13:14→14:56)
--- NOTE | 2021-09-21 13:18 | Pharmacy Report ---
Pharmacy [facility] Short Note - Date of Service September 21, 2021 - Assessment & Plan Assessment * 65 year old M receiving vancomycin for possible Staph bacteremia * Nasal MRSA positive. Blood culture from 09/18 now with 1 of 2 positive for Staph spp (PCR negative for MSSA and MRSA). Discussed on ICU rounds - OK to stop cefepime but continue vancomycin Vancomycin * Will dose via level for HD * Level low this AM. Anticipate HD today * Will give larger dose post-HD today Plan * Vancomycin 1000 mg IV x1 after HD * Random level with AM labs Pharmacy will continue to follow and will adjust dose/frequency as necessary. Thank you.
[2021-09-21] MEDS ORDERED: RAPID SEQUENCE INDUCTION BAG ONE (14:53)
[2021-09-21] MEDS ORDERED: VANCOMYCIN HCL 1,000 MG in SODIUM CHLORIDE 0.9% 250 ML IV SCH (15:00)
[2021-09-21] MEDS ORDERED: SODIUM BICARB 8.4% INJ 50 MEQ/50 ML SYR IV ONE (15:09)
[2021-09-21] MEDS ORDERED: MIDAZOLAM BOLUS FROM BAG IV PRN (15:22)
[2021-09-21] MEDS ORDERED: MIDAZOLAM HCL 125 MG/250 ML BAG IV PRN (15:22)
[2021-09-21] MEDS ORDERED: STAT IV Infusion **Titration per Protocol STA ×2 (15:22→16:09)
[2021-09-21] MEDS ORDERED: fentaNYL citrate 2,500 MCG/250 ML BAG IV ONE (15:25)
[2021-09-21] MEDS ORDERED: MIDAZOLAM HCL 125MG/250ML D5W ONE (15:27)
[2021-09-21] MEDS ORDERED: fentaNYL citrate 2,500 MCG/250 ML BAG IV SCH (15:30)
[2021-09-21 15:33] LABS: Basophils # (auto) 0.01 K/uL (0-0.2); Basophils % (auto) 0.2 %; Eosinophils # (auto) 0.01 K/uL (0-0.5); Eosinophils % (auto) 0.2 %; Hematocrit (blood only) 33.5 % (42-52); Hemoglobin 11.4 g/dL (14.0-18.0); Immature Granulocytes # (auto) 0.04 K/uL (0.00-0.02); Immature Granulocytes % (auto) 0.8 %; Lymphocytes % (auto) 7.8 %; Mean Corpuscular Hemoglobin 29.1 pg (25-34); Mean Corpuscular Volume 85.5 fL (80-100); Mean Platelet Volume 13.1 fL (7.4-10.4); Monocytes # (auto) 0.28 K/uL (0.11-0.59); Monocytes % (auto) 5.5 %; Neutrophils # (auto) 4.39 K/uL (1.4-6.5); Neutrophils % (auto) 85.5 %; Platelet Count 163 K/uL (130-400); RDW Coefficient of Variation 18.4 % (11.5-14.5); RDW Standard Deviation 54.6 fL (36.4-46.3); Red Blood Count 3.92 M/uL (4.7-6.1); White Blood Count 5.13 K/uL (4.8-10.8)
--- NOTE | 2021-09-21 15:33 | XRay Report ---
XR chest 1V portable CLINICAL HISTORY: intubation TECHNIQUE: Single frontal radiograph of the chest was obtained. Comparison: Comparison is made to chest radiograph 09/21/2021 FINDINGS: Interval placement of endotracheal tube with the tip 12 mm from the franchesca. Enteric tube is unchanged . The cardiomediastinal silhouette is normal. Lungs are underinflated but clear. No evidence of pleur al effusion or pneumothorax. IMPRESSION: Endotracheal tube tip is 12 mm from the franchesca and can be withdrawn approximately 2 cm for improved p ositioning. ACT 112: Negative or not required by law. Electronically signed by: Maulik Gong M.D. 09/21/2021 3:31 PM
--- NOTE | 2021-09-21 15:42 | Communication Note ---
Date of Service: September 21, 2021 At around 15:00 I attempted to call the patient's primary contact Jorge Price twice with no response and LVM. I then called patient's secondary contact, his sister Nita Jensen. She stated she was the patient's power of erisa attorney. She said she was being updated daily on her brother's situation and understood he was sick and not in his right/usual mental status. I let Ms. Moya know the patient's condition was not improving despite dialysis treatment and antibiotic treatment for possible bacteremia. I let her know of the patient's worsening respiratory function today necessitating intubation and mechanical ventilation. She understood and asked if this would be to help stabilize or just prolong his life. I let her know that the hope would be to stabilize the patient's breathing but his overall prognosis looked poor given his multiple comorbidities. I let her know he may pass away at this hospital admission based on how sick he is presenting. She understood this. I asked her what the patient would want to be done for intubation. She stated he would want intubation if it were for a short period but would not want intubation if it was just for prolonging life. She stated if her brother does not get better with this intubation or if it looks like there is no improvement after 24 hours then she would not want intubation to continue and not want further intubation. She would also not want resuscitative CPR or shock in the case his heart stops beating. The patient was then changed to DNR/DNI. Resident Activity Tracking Resident Involvement: Resident Care Provided Care Provided: Adult Hospital Medicine
[2021-09-21] MEDS ORDERED: PEPTAMEN INTENSE VHP 1.0 CAL 1,000 ML BAG GT SCH (16:00)
[2021-09-21 16:26] LABS: iSTAT Art Bld Gas pCO2 Correct 34 mmHg (35-46); iSTAT Art Bld Gas pH Corrected 7.429 (7.35-7.45); iSTAT Arterial Blood Gas HCO3 22 meg/L (19-24); iSTAT Arterial Blood Gas pCO2 34 mmHg (35-46); iSTAT Arterial Blood Gas pH 7.43 (7.35-7.45); iSTAT Arterial Blood Gas pO2 113 mmHg (80-95); iSTAT Arterial Blood Gas pO2 C 113; iSTAT Carbon Dioxide 23 mmol/L (24-31); iSTAT FiO2 50 %; iSTAT Hematocrit 39 % (42-52); iSTAT Hemoglobin 13.3 g/dl (14.0-18.0); iSTAT Potassium 3.7 mmol/L (3.3-5.0); iSTAT Site R Femoral; iSTAT Sodium 137 mmol/L (135-144)
--- NOTE | 2021-09-21 16:48 | Procedure Note ---
Procedure Note Date of Service September 21, 2021 Note INTUBATION PROCEDURE NOTE: Dr. Teddy Ohara A time-out was completed verifying correct patient, procedure, site, positioning. Patient was evaluated and required intubation for encephalopathy and airway protection. Sedative agent used: Etomidate 25 mg Paralysis agent used: None Emergent consent was implied given patients rapidly declining clinical status and need for airway protection. Number of attempts: 1 Grade view: The patient was prepared in the appropriate fashion. Sedation was achieved utilizing etomidate. The patient was easily ventilated using [id number] to achieve adequate oxygenation. A 8 Kinyarwanda endotracheal tube was placed under video laryngoscope guidance to 22 cm at the lip. The stylette was removed and balloon was inflated with 10mL of air. Appropriate Colorimetric change was appreciated. Bilateral breath sounds were heard without air sounds in the abdomen. Post Intubation Chest X-ray ordered Patient tolerated the procedure well and there were no immediate complications. Coding CPT Codes Resuscitation - Resuscitation: 91414 Endotracheal Intubation, emergency ([id number]) [facility] [place] Codes (Charges) Resuscitation Resuscitation: 26874 Endotracheal Intubation, emergency
[2021-09-21] MEDS ORDERED: PIPERACILL/TAZOBAC CONSULT ACTIVE PRN (16:52)
--- NOTE | 2021-09-21 16:54 | Communication Note ---
Date of Service: September 21, 2021 I had a lengthy discussion with the patient's sister over the phone who is the POA. She was informed and updated about patient's change in condition including worsening mentation requiring intubation for airway protection. He has also had escalating vasopressor requirements and is currently on high doses of Levophed. I have placed orders for vasopressin and phenylephrine as well. I directed nursing to place an IO in the right shoulder due to poor venous access. I performed an ultrasound of numerous sites and was unable to find a viable site for placement of a central line. Patient's sister notes that she would like her brother changed to a DNR in the event of a cardiac arrest and she notes that he would not want prolonged support on a mechanical ventilator. She also notes that if he needs escalating measures that she would likely want him to transition to comfort measures. I informed her that we will update her if we note that his condition continues to be deteriorating. ABG obtained which was reviewed. pH 7.429. PCO2 36.6. PO2 113. Other labs ordered including BMP and lactic acid level. Procalcitonin ordered as well. Blood cultures noted to be growing Staphylococcus species, but MRSA screen negative. Continue vancomycin for the time being. Chest x-ray with signs of aspiration pneumonitis. We will add Zosyn. Repeat blood cultures ordered. MRI brain negative for acute event. EEG negative for epileptiform activity. His overall prognosis is very poor. Coding Level of Care Code Critical Care emily hernandezt'l 30 min Time Spent (min) 39
[2021-09-21] MEDS ORDERED: PIPERACILLIN/TAZOBACTAM 4.5 GM in DEXTROSE 5% 100 ML IV ONE (17:15)
[2021-09-21] MEDS: VASOPRESSIN 20 UNITS in 0.9 % SODIUM CHLORIDE 100 ML IV SCH (18:17)
[2021-09-21] MEDS: TUBE FEEDING WATER FLUSH NG SCH ×2 (18:24→20:54)
--- NOTE | 2021-09-21 18:42 | Hospitalist Progress Note ---
Date of Service September 21, 2021 Assessment & Plan (1) Acute respiratory failure: Plan: Patient developed worsening acute respiratory failure requiring intubation to protect airway concern for aspiration pneumonia antibiotics continue mechanical ventilation overseen by ICU team prognosis is significant and poor (2) Chronic kidney disease with end stage renal failure on dialysis: Plan: 65 year old male with ESRD on MWF hemodialysis, PAD, BPH, GERD, DM, depression, CAD, CVA, anemia who presents w/ melena, fatigue, and malaise Encephalopathy, suspect 2/2 sepsis versus metabolic with ESRD not resolving 4 blood cultures positive concern for possible infection and sepsis as his initial presentation Prior to admission patient had refused 09/18 dialysis with electrolyte abnormalities - trop 56.4, 89.7 likely demand ischemia from hypotension - TSH 6.358 / fT4 0.48. Increased Synthroid from 75 mcg to 88mcg - MRSA Nare Positive - Random cortisol 27,54 - COVID negative - CXR: small pleural effusions with mild bibasilar atelectasis - CT-A/P: No acute intra-abdominal or intrapelvic abnormality. No urolith or obstructive uropathy. Small pleural effusions with compressive bibasilar atelectasis. Additional bibasilar groundglass densities are suspicious for a mild infectious or inflammatory pneumonitis. Unchanged 2 cm exophytic lesion of the right kidney suggestive of a proteinaceous or hemorrhagic cyst. Blood cultures 1 of 4 blood cultures are positive luminary of staph species Admitting EKG: afib, no st changes ? GI bleed, melanotic stools prior to admission. DOAC held.Hemoglobin 10.8 from 12.2, admitting 11.7 BUN not markedly elevated on admission Patient presented with septic appearance, procalcitonin normal, multiple skin wounds although not overtly infected appearing. On empiric Rocephin, patient with 1 of 4 blood cultures positive on Zosyn and vancomycin ESRD on dialysis Nephrology consulted Electrolytes as above Midodrine Continue on Levophed drip for pressure support, dialysis per nephrology - K low, will not be repleting in setting of ESRD. HS trop 56.4, will trend. AG as noted (3) Acute upper gastrointestinal bleeding: Plan: - Held home Eliquis History of GI ulcer 2018, history of gastric bypass Hemoglobin stable at this time, trend and follow for bleeding (4) Lactic acidosis: Plan: Resolved secondary to low blood pressure and decreased tissue perfusion along with renal failure blood cultures being positive and concern for likely aspiration pneumonia sepsis may be more right hand (5) PAD (peripheral artery disease): Plan: Apixaban held, Resume atorvastatin once clinically improving (6) Elevated troponin I level: Plan: - no significant up trend secondary to demand ischemia given his hypotension and significantly ill state (7) BPH (benign prostatic hyperplasia): Plan: - home regimen (8) GERD (gastroesophageal reflux disease): Plan: - home regimen (9) Hemodialysis patient: Plan: Neurology consulted as noted above (10) Diabetes mellitus with diabetic polyneuropathy: Plan: ICU hyperglycemia protocol (11) Hypothyroid: Plan: - home regimen (12) History of non-ST elevation myocardial infarction (NSTEMI): Plan: Denied pain, no acute ST changes High-sensitivity troponin increased do not suspect acute coronary syndrome at this time (13) CAD (coronary artery disease): Plan: As above (14) History of CVA (cerebrovascular accident): Plan: As above (15) History of GI bleed: Plan: As above Plan: FEN/GI: dialysis renal diet. fluid restrict 1000mL ppx: scds only code: Patient made DNR by family in the afternoon of 09/21/2021 prognosis is poor for this patient dispo: ICU status Admission and Anticipated Discharge Date Admission Date: September 18, 2021 Subjective Patient with limited responsiveness this morning rapid In the afternoon intubation by pulmonary critical care medicine. 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 his right leg has changes of chronic arterial insufficiency his skin is covered with lesions of various ages and injuries Results & Data Results & Data ([facility]) Vital Signs (Past 12 Hours) Vital Signs Temp Pulse Pulse Resp BP BP Pulse Ox 09/21/21 16:20 96.8 F L 114 H 114/85 09/21/21 16:07 138 H 54/37 L 09/21/21 16:02 139 H 113/64 09/21/21 15:50 132 H 22 111/79 09/21/21 15:45 128 H 22 96/73 L 09/21/21 15:41 128 H 22 109/78 09/21/21 15:38 126 H 22 118/86 09/21/21 15:36 96.8 F L 131 H 128 H 20 118/89 09/21/21 15:35 22 09/21/21 15:34 129 H 21 109/78 75 L 09/21/21 15:32 122 H 23 127/90 89 L 09/21/21 15:30 124 H 24 114/85 90 09/21/21 15:28 123 H 23 128/90 94 09/21/21 15:26 120 H 24 114/83 93 09/21/21 15:25 120 H 27 H 107/79 96 09/21/21 15:23 122 H 23 131/72 100 09/21/21 15:17 116 H 20 99 09/21/21 15:15 117 H 21 97 09/21/21 15:14 123 H 16 82/56 L 97 09/21/21 15:13 125 H 16 57/48 L 93 09/21/21 15:11 127 H 15 86/67 L 87 L 09/21/21 15:08 128 H 24 70/44 L 09/21/21 15:07 143 H 31 H 73/59 L 09/21/21 15:05 102 H 25 H 73/59 L 77 L 09/21/21 15:03 92/59 L 09/21/21 15:00 106 H 26 H 90 09/21/21 14:52 112 H 25 H 110/61 94 09/21/21 14:30 113 H 25 H 95 09/21/21 14:00 108 H 21 91 09/21/21 13:30 114 H 20 98 09/21/21 13:00 117 H 26 H 89 L 09/21/21 12:53 135 H 26 H 93/71 L 96 09/21/21 12:30 130 H 29 H 95 09/21/21 06:55 91 H 23 98 PG Care Time/CCT Total # of Minutes Spent Total Time Spent with Patient: Total time spent is greater than 50% in coordination of care (as documented) at patient's floor/unit and/or counseling patient: Coding Level of Care Code 80462 Subseq Hosp Care Lvl 3 Diagnoses Chronic kidney disease with end stage renal failure on dialysis N18.6; Z99.2 Acute upper gastrointestinal bleeding K92.2 Lactic acidosis E87.2 PAD (peripheral artery disease) I73.9 Elevated troponin I level R77.8 BPH (benign prostatic hyperplasia) N40.0 Lower urinary tract symptom presence: symptoms absent GERD (gastroesophageal reflux disease) K21.9 Esophagitis presence: esophagitis presence not specified Hemodialysis patient Z99.2 Diabetes mellitus with diabetic polyneuropathy E11.42 Diabetes mellitus type: type 2 Diabetes mellitus meterman insulin use: without skilled nursing use Hypothyroid E03.9 Hypothyroidism type: acquired History of non-ST elevation myocardial infarction (NSTEMI) I25.2 CAD (coronary artery disease) I25.10 Coronary Disease-Associated Artery/Lesion type: unspecified vessel or lesion type [place] vs. transplanted heart: [place] heart Associated angina: without angina History of CVA (cerebrovascular accident) Z86.73 History of GI bleed Z87.19 Acute respiratory failure J96.00 (1) BPH (benign prostatic hyperplasia) Lower urinary tract symptom presence: symptoms absent Qualified Code(s): N40.0 - Benign prostatic hyperplasia without lower urinary tract symptoms (2) GERD (gastroesophageal reflux disease) Esophagitis presence: esophagitis presence not specified Qualified Code(s): K21.9 - Gastro-esophageal reflux disease without esophagitis (3) Diabetes mellitus with diabetic polyneuropathy Diabetes mellitus type: type 2 Diabetes mellitus meterman insulin use: without skilled nursing use Qualified Code(s): E11.42 - Type 2 diabetes mellitus with diabetic polyneuropathy (4) Hypothyroid Hypothyroidism type: acquired Qualified Code(s): E03.9 - Hypothyroidism, unspecified (5) CAD (coronary artery disease) Coronary Disease-Associated Artery/Lesion type: unspecified vessel or lesion type [place] vs. transplanted heart: [place] heart Associated angina: without angina Qualified Code(s): I25.10 - Atherosclerotic heart disease of [place] coronary artery without angina pectoris
[2021-09-21] MEDS: LATANOPROST 0.005% OP SOLN 2.5 ML BTL OPL SCH (20:51)
[2021-09-21] MEDS: PIPERACILLIN/TAZOBACTAM 3.375 GM in DEXTROSE 5% 100 ML IV SCH (20:54)
[2021-09-22] MEDS: TUBE FEEDING WATER FLUSH NG SCH ×4 (00:27→11:54)
[2021-09-22] MEDS: VASOPRESSIN 20 UNITS in 0.9 % SODIUM CHLORIDE 100 ML IV SCH ×2 (01:54→10:21)
[2021-09-22] MEDS: FLUDROCORTISONE ACETATE 0.1 MG TAB PO SCH (04:43)
[2021-09-22] MEDS: NOREPINEPHRINE/D5W 8 MG/508 ML BAG IV SCH (04:48)
[2021-09-22] MEDS: LEVOTHYROXINE SODIUM 88 MCG TABLET PO SCH (05:11)
[2021-09-22] MEDS: PIPERACILLIN/TAZOBACTAM 3.375 GM in DEXTROSE 5% 100 ML IV SCH (05:11)
[2021-09-22 06:05] LABS: iSTAT Art Bld Gas pCO2 Correct 57 mmHg (35-46); iSTAT Art Bld Gas pH Corrected 7.154 (7.35-7.45); iSTAT Arterial Blood Gas HCO3 20 meg/L (19-24); iSTAT Arterial Blood Gas pCO2 57 mmHg (35-46); iSTAT Arterial Blood Gas pH 7.15 (7.35-7.45); iSTAT Arterial Blood Gas pO2 < 32 mmHg (80-95); iSTAT Arterial Blood Gas pO2 C 26; iSTAT Carbon Dioxide 22 mmol/L (24-31); iSTAT FiO2 50 %; iSTAT Hematocrit 36 % (42-52); iSTAT Hemoglobin 12.2 g/dl (14.0-18.0); iSTAT Potassium 4.1 mmol/L (3.3-5.0); iSTAT Site R Femoral; iSTAT Sodium 133 mmol/L (135-144)
--- NOTE | 2021-09-22 07:12 | XRay Report ---
XR chest 1V portable HISTORY: 65 years-old Male Resp failure acute respiratory failure COMPARISON: Chest radiograph 09/21/2021 TECHNIQUE: Portable AP view of the chest FINDINGS: Endotracheal tube overlies the midline, 1.9 cm superior to the franchesca. Enteric tube distal tip overli es the mid stomach. Cholecystectomy clips. No pneumothorax or large pleural effusion. Hypoinflation. Pulmonary vascular congestion with interstitial coarsening and ill-defined bilateral airspace opaciti es redemonstrated. Degenerative changes of the shoulders and spine. IMPRESSION: 1. Lines and tubes as above. 2. Interstitial coarsening with ill-defined bilateral airspace opacities redemonstrated. 3. No pneumothorax. ACT 112: Negative or not required by law. The above report was generated using voice recognition software. It may contain grammatical, syntax o r spelling errors. Electronically signed by: Rey Kulkarni M.D. 09/22/2021 7:10 AM
[2021-09-22] MEDS: HEPARIN SOD 5,000 UNIT/0.5 ML VIAL SC SCH (08:27)
[2021-09-22] MEDS: MIDODRINE HCL 2.5 MG TAB PO SCH ×2 (08:27→11:53)
[2021-09-22] MEDS: PANTOprazole 40 MG in SYRINGE 0 ML IV SCH (08:27)
--- NOTE | 2021-09-22 08:54 | Palliative Care Consultation ---
Date of Consultation September 22, 2021 Assessment & Plan (1) Palliative care encounter: Mr. Guthrie is a 65 year old male on MWF ESRD HD, AF, PAD, BPH, GERD, DM, depression, CAD, CVA, anemia who presented to [facility] from [facility] w/ dark, melena appearing stools. He has had poor PO intake x 3-4 days per facility staff. He refused his PO medications yesterday because of generalized malaise. Patient has been non compliant at [facility] and has been refusing not only dialysis treatments, but medications. In the ICU, he rapidly declined and did not tolerate hemodialysis well and was subsequently starting on inotropic medications. The patient declined from a respiratory standpoint, requiring intubation. Palliative medicine was consulted to discuss overall goals of care as his recovery is poor, at best. I had lengthy conversation with the patients , Nita, at [phone]. She indicated that she is caring for her 93 year old mother as well and knows that Parker is unlikely to improve with meaningful intention due to his 'hard life' as she mentioned. She did state that they have discussed numerous times before that he would not want to be kept alive with heroic measures or aggressive machines, including a ventilator. I did ask if she would like to come in and see him as I think it could help put into perspective how sick he is. She agreed. I met with Nita and her Ismael, at the [facility] and we walked back to 111. Even before seeing the patient, she was prepared to compassionately withdraw care and focus on a comfort transition to his care. Patient was transitioned to comfort measures and was compassionately extubated, along with discontinuation of inotropic support. Patient ceased to breathe and was asystolic on the monitor car operator at 1315. I was able to visit with the patient and confirm his with no breath sounds present, no cardiac heart tones present, and his pupils were fixed and dilated. ICU physician and Hospitalist made aware. Thank you for involving palliative medicine with this unfortunate individual. History of Present Illness Reason for Consultation: Goals of care Requesting Physician: Dr. Ohara Attending Physician: Rubio Henry MD History of Present Illness Mr. Guthrie is a 65 year old male on MWF ESRD HD, AF, PAD, BPH, GERD, DM, depression, CAD, CVA, anemia who presented to [facility] from [facility] w/ dark, melena appearing stools. He has had poor PO intake x 3-4 days per facility staff. He refused his PO medications yesterday because of generalized malaise. Patient has been non compliant at [facility] and has been refusing not only dialysis treatments, but medications. In the ICU, he rapidly declined and did not tolerate hemodialysis well and was subsequently starting on inotropic medications. The patient declined from a respiratory standpoint, requiring intubation. Palliative medicine was consulted to discuss overall goals of care as his recovery is poor, at best. Please see A/P for further details. Thanks for involving Palliative Medicine with this individual. Allergies Allergy/AdvReac Type Severity Reaction Status Date / Time No Known Allergies Allergy Verified 09/18/21 18:35 Home Medications Medication Instructions Recorded Confirmed Type apixaban 5 mg tablet (Eliquis) 5 mg PO BID #60 tab 02/17/19 09/18/21 History midodrine 2.5 mg tablet 2.5 mg PO BID #30 tab 02/17/19 09/18/21 History acetaminophen 325 mg tablet 650 mg PO Q6H PRN MDD 3 GRAMS/24 03/20/19 09/18/21 History (Tylenol) HOURS atorvastatin 40 mg tablet (Lipitor) 40 mg PO HS 03/20/19 09/18/21 History fludrocortisone 0.1 mg tablet 0.1 mg PO DAILY 03/20/19 09/18/21 History loratadine 10 mg tablet (Claritin) 10 mg PO QPM 03/20/19 09/18/21 History omeprazole 20 mg tablet,delayed 20 mg PO DAILY 03/20/19 09/18/21 History release tramadol 50 mg tablet (Ultram) 50 mg PO 3XWK 03/20/19 09/18/21 History levothyroxine 75 mcg tablet 75 mcg PO DAILYBB 04/27/19 09/18/21 History sertraline 100 mg tablet 100 mg PO DAILY 04/27/19 09/18/21 History sucralfate 1 gram tablet 1 g PO BID 10/12/19 09/18/21 History Lactobacillus acidophilus 10,000 mmu cells PO BID 05/07/20 09/18/21 History gabapentin 400 mg capsule 400 mg PO DAILY 05/07/20 09/18/21 History latanoprost 0.005 % eye drops 1 drp OPL HS 07/04/20 09/18/21 History (Xalatan) patiromer calcium sorbitex 8.4 16.8 g PO DAILY 07/04/20 09/18/21 History gram oral powder packet (Veltassa) cinacalcet 30 mg tablet (Sensipar) 30 mg PO DAILY 07/25/20 09/18/21 History albuterol sulfate 90 mcg/actuation 2 puff INHALATION Q4H PRN 05/05/21 09/18/21 History aerosol inhaler (Ventolin HFA) lidocaine 5 % topical patch 1 patch TRANSDERMAL .EVERY 24 05/05/21 09/18/21 History HOURS PRN quetiapine 25 mg tablet 25 mg PO HS 05/05/21 09/18/21 History ondansetron HCl 4 mg tablet 4 mg PO Q6H PRN 08/03/21 09/18/21 History oxycodone 5 mg tablet 5 mg PO Q4H PRN 08/03/21 09/18/21 History cadexomer iodine 0.9 % topical gel 40 g TOPICAL DAILY 30 Days #40 g 08/10/21 09/18/21 Rx (Iodosorb) rizatriptan 5 mg disintegrating See Rx Instructions .ROUTE .COMPLEX 09/18/21 09/18/21 History tablet sertraline 25 mg tablet 25 mg PO DAILY 09/18/21 09/18/21 History Patient History Medical History Amputation of left lower extremity below knee Anemia Atrial fibrillation Bradycardia with less than 30 beats per minute hx CAD (coronary artery disease) "per records- had acute SC in 07/2001 and 03/2010. 40% LAD and 30% circ obstruction noted in records- unknown date of cath. " Depression Diabetes mellitus with diabetic polyneuropathy Diabetic retinopathy Dialysis patient AT [facility] EVERY SATURDAY/SAT/SATURDAY End stage renal disease Endotracheally intubated Failed attempted surgical procedure attempted pacemaker insertion 02/2018 for bradycardia per medical notes ([facility]) Fall Fluency disorder following cerebrovascular accident patient Alert & Oriented x3 (per staff at [facility]) GERD (gastroesophageal reflux disease) Gout Hemodialysis patient History of Clostridium difficile colitis History of COVID-19 UNKNOWN DATE, FROM [facility] History of CVA (cerebrovascular accident) date unknown [facility] city [facility] History of GI bleed "EGD 02/08/15- ulceration at gastrojejunal anastomosis from bastric bypass Colonoscopy 02/08/15- internal hemorrhoids" History of methicillin resistant staphylococcus aureus (MRSA) History of non-ST elevation myocardial infarction (NSTEMI) History of peritoneal dialysis History of TIAs Hyperkalemia Hypothyroid Migraine Morbid obesity Palliative care encounter Polyneuropathy PVD (peripheral vascular disease) SVT (supraventricular tachycardia) hx Surgical History H/O gastric bypass H/O total hip arthroplasty History of cholecystectomy History of colonoscopy with polypectomy "09/22/2014- adenomatous polyps" S/P hemodialysis catheter insertion with revisions in Left groin Family History Other Cancer Heart disease Hypertension Social History Smoking Status: Unknown if ever smoked Second Hand Exposure: No; Hx Alcohol Use: No Hx Substance Use: No Preferred Language: Lao Communication Ability: Effective 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 Required: No Beliefs That Will Affect Care: None marital status: Single Current Living Situation[facility] Yes Assistive Devices: Wheelchair Review of Systems Review of Systems: Unobtainable due to endotracheal tube Physical Exam Constitutional: + ill appearing, + morbidly obese, + frail appearing and + disheveled Respiratory: Intubated Cardiovascular: Rate/Rhythm: + tachycardic Heart Sounds: normal S1 and normal S2 Extremities: + vascular access device (left femoral dialysis catheter ); + abnormal capillary refill Gastrointestinal (Abdomen): Inspection/Auscultation: normal bowel sounds Percussion/Palpation: abdomen soft Skin: + mottling and + pallor Psychiatric: Intubated. Unable to assess neuro status. Versed discontinued. Remains on Fentanyl Results & Data ([facility]) Vital Signs (Past 12 Hours) Vital Signs Temp Pulse Resp BP Pulse Ox 09/22/21 07:22 121 H 24 94 09/22/21 05:56 24 09/22/21 04:13 36.9 C 09/22/21 04:00 129 H 22 117/71 92 09/22/21 03:50 104 H 22 95 09/22/21 03:41 119 H 22 108/67 95 04 03:40 106 H 22 93 09/22/21 03:31 106 H 22 95 09/22/21 03:30 112 H 22 94 09/22/21 03:20 116 H 22 93 09/22/21 03:10 115 H 22 95 09/22/21 03:00 116 H 22 112/77 95 09/22/21 02:50 118 H 22 95 09/22/21 02:40 115 H 24 94 09/22/21 02:31 127 H 22 118/66 95 09/22/21 02:30 125 H 22 94 09/22/21 02:20 127 H 22 96 09/22/21 02:10 113 H 22 95 09/22/21 02:01 36.7 C 116 H 22 126/67 96 09/22/21 02:00 114 H 22 93 09/22/21 01:50 112 H 22 95 09/22/21 01:40 116 H 22 96 09/22/21 01:30 117 H 22 108/81 95 09/22/21 01:20 105 H 22 95 09/22/21 01:10 133 H 22 95 09/22/21 01:07 123 H 22 112/75 94 09/22/21 01:01 115 H 22 95 09/22/21 01:00 111 H 22 95 09/22/21 00:50 124 H 22 95 09/22/21 00:40 131 H 22 94 09/22/21 00:31 110 H 22 116/81 94 09/22/21 00:30 113 H 22 96 09/22/21 00:20 121 H 22 96 09/22/21 00:10 123 H 22 95 09/22/21 00:00 118 H 22 123/78 95 04 23:50 115 H 22 95 09/21/21 23:40 115 H 22 96 09/21/21 23:31 121 H 22 119/83 95 09/21/21 23:30 132 H 22 97 04 23:20 122 H 22 97 09/21/21 23:12 118 H 22 117/74 96 09/21/21 23:10 120 H 22 97 09/21/21 23:01 131 H 28 H 95 09/21/21 23:00 122 H 22 98 09/21/21 22:50 129 H 22 95 09/21/21 22:45 133 H 22 97 09/21/21 22:40 131 H 22 09/21/21 22:38 37.1 C 09/21/21 22:30 123 H 22 110/76 100 09/21/21 22:20 122 H 22 100 09/21/21 22:15 130 H 25 H 105/79 98 09/21/21 22:10 130 H 22 100 09/21/21 22:01 130 H 22 100 09/21/21 22:00 125 H 22 100 09/21/21 21:50 124 H 22 100 09/21/21 21:40 151 H 22 100 09/21/21 21:34 117 H 22 113/89 100 09/21/21 21:31 110 H 22 100 09/21/21 21:30 123 H 22 100 09/21/21 21:20 77 22 100 09/21/21 21:15 114 H 22 120/84 100 09/21/21 21:12 118 H 22 110/79 100 09/21/21 21:11 120 H 22 100 09/21/21 21:10 117 H 22 100 09/21/21 21:05 124 H 22 106/82 100 09/21/21 21:01 123 H 22 121/77 100 09/21/21 21:00 88 22 100 09/21/21 20:56 125 H 22 120/78 100 PG Care Time/CCT Total # of Minutes Spent Total Time Spent with Patient: Total time spent is greater than 50% in coordination of care (as documented) at patient's floor/unit and/or counseling patient: 100 minutes Coding Level of Care Code 26544 Inpt Consult Level 3 Diagnoses Palliative care encounter Z51.5 Time Spent (min) 100
[2021-09-22 08:55] LABS: Basophils # (auto) 0.01 K/uL (0-0.2); Basophils % (auto) 0.2 %; Eosinophils # (auto) 0.05 K/uL (0-0.5); Eosinophils % (auto) 0.8 %; Hemoglobin 11.5 g/dL (14.0-18.0); Immature Granulocytes # (auto) 0.05 K/uL (0.00-0.02); Immature Granulocytes % (auto) 0.8 %; Lymphocytes # (auto) 0.86 K/uL (1.2-3.4); Lymphocytes % (auto) 13.9 %; Mean Corpuscular Hemoglobin 29.3 pg (25-34); Mean Corpuscular Volume 86.7 fL (80-100); Mean Platelet Volume 12.7 fL (7.4-10.4); Monocytes # (auto) 0.56 K/uL (0.11-0.59); Neutrophils # (auto) 4.67 K/uL (1.4-6.5); Neutrophils % (auto) 75.3 %; Platelet Count 154 K/uL (130-400); RDW Coefficient of Variation 18.2 % (11.5-14.5); RDW Standard Deviation 54.3 fL (36.4-46.3); Red Blood Count 3.92 M/uL (4.7-6.1)
[2021-09-22 09:04] LABS: Mean Corpuscular Hgb Conc 33.8 g/dL (32-36)
[2021-09-22 09:12] LABS: BUN Creatinine Ratio 6.1 (10-20); Calcium 6.7 mg/dl (8.5-10.1); Creatinine Clr Calc Pharmacy 24.4 ml/min; Est GFR (African American) 21.8 ml/min; Est GFR (Non-African American) 18.8 ml/min; Magnesium 1.6 mg/dl (1.7-2.4); Phosphorus 2.5 mg/dl (2.5-4.9); Potassium 4.2 mmol/L (3.5-5.1)
--- NOTE | 2021-09-22 09:50 | Critical Care Progress Note ---
Date of Service September 22, 2021 Assessment & Plan (1) Admitted to intensive care unit: Plan: Reason Critically Ill: 65-year-old male with end-stage renal disease and multiple comorbidities presenting with concerns for melanotic stools and hypotension. NEURO - * Intubated and sedated. EEG and MRI brain negative. CARDIAC/VASCULAR - * Currently in a shock state. Continue with pressors to maintain mean arterial pressure above 65. Echo reviewed. RESPIRATORY - * No significant issues at present. Likely aspiration pneumonia/pneumonitis. GI/NUTRITION - * Minimal p.o. intake. Mild transaminitis. Continue tube feeds. RENAL/LYTES - * End-stage renal disease: * Replacing phosphorus and potassium. * Consult nephrology for ongoing management. - * Anuric ENDO - * DMII, Hypothyroid * BSGs per unit protocol. ISS --> gtt per unit policy. HEME - * Stable H&H * Monitor for drop w/ concerns of ?? GIB * Restarting heparin BID ID - * Blood cultures negative to date. Continue empiric antibiotics. LINES/IV ACCESS - * LEFT EJ * LEFT Femoral HD Cath DVT PROPHYLAXIS - * Heparin subq * SCDs Discussion had with patient's sister yesterday. Follow-up care consult. Likely transition to comfort measures later today. CRITICAL CARE TIME - I have personally spent 37 minutes of critical care time in the direct management of this patient. This is a life/limb threatening event. This includes time spent evaluating patient, direct bedside care, chart review, placing orde rs, interpretation of diagnostic studies, discussion with consultants, patient, and family members, as well as other required patient management activities. This time is exclusive of all separately billable procedures, and teaching time and separate from and in addition to any other critical care service time. (2) Hypotension: (3) Chronic kidney disease with end stage renal failure on dialysis: (4) Hypoglycemia: (5) Lactic acidosis: (6) PAD (peripheral artery disease): (7) Endotracheally intubated: Admission and Anticipated Discharge Date Admission Date: September 18, 2021 Subjective Patient seen and examined. Currently intubated and sedated. Not responsive to commands. Review of Systems Review of Systems: Unobtainable due to cognitive status and Unobtainable due to endotracheal tube Physical Exam Physical Exam: VITAL SIGNS - Vital signs and nursing notes were reviewed. GENERAL -intubated and sedated. SKIN - Multiple wounds in various stages noted throughout. HEAD - NC/AT. EYES - PERRL with EOMI bilaterally. Sclera anicteric. EARS - No deformities of external structures noted on gross examination bilaterally. NOSE - Midline and without cyanosis. No epistaxis or purulent drainage noted. MOUTH/OROPHARYNX - Without perioral cyanosis. Buccal mucosa pink and dry. Poor dentition. NECK - Neck with FROM. Supple to palpation. No nuchal rigidity. LUNGS - Chest wall symmetric without accessory muscle use, intercostals retractions, or central cyanosis. Normal vesicular breath sounds CTA B/L. No wheezes, rales, or rhonchi appreciated. CARDIAC - RRR with S1/S2. No murmur, rubs, or gallops appreciated. ABDOMEN - Abdominal contour obese without pulsations or visible masses. BS normoactive all four quadrants. No tenderness, palpable masses, hepatosplenomegaly, or ascites noted. EXTREMITIES - Poor peripheral pulses throughout. Poor vasculature. BKA of the LLE. NEUROLOGIC - Cranial nerves II through XII grossly intact. PSYCH unable to assess. Results & Data Results & Data ([facility]) Vital Signs (Past 12 Hours) Vital Signs Temp Pulse Resp BP Pulse Ox 09/22/21 07:22 121 H 24 94 09/22/21 05:56 24 09/22/21 04:13 36.9 C 09/22/21 04:00 129 H 22 117/71 92 09/22/21 03:50 104 H 22 95 09/22/21 03:41 119 H 22 108/67 95 09/22/21 03:40 106 H 22 93 09/22/21 03:31 106 H 22 95 09/22/21 03:30 112 H 22 94 09/22/21 03:20 116 H 22 93 09/22/21 03:10 115 H 22 95 09/22/21 03:00 116 H 22 112/77 95 09/22/21 02:50 118 H 22 95 09/22/21 02:40 115 H 24 94 09/22/21 02:31 127 H 22 118/66 95 09/22/21 02:30 125 H 22 94 09/22/21 02:20 127 H 22 96 09/22/21 02:10 113 H 22 95 09/22/21 02:01 36.7 C 116 H 22 126/67 96 09/22/21 02:00 114 H 22 93 09/22/21 01:50 112 H 22 95 09/22/21 01:40 116 H 22 96 09/22/21 01:30 117 H 22 108/81 95 09/22/21 01:20 105 H 22 95 09/22/21 01:10 133 H 22 95 09/22/21 01:07 123 H 22 112/75 94 09/22/21 01:01 115 H 22 95 09/22/21 01:00 111 H 22 95 09/22/21 00:50 124 H 22 95 09/22/21 00:40 131 H 22 94 09/22/21 00:31 110 H 22 116/81 94 09/22/21 00:30 113 H 22 96 09/22/21 00:20 121 H 22 96 09/22/21 00:10 123 H 22 95 09/22/21 00:00 118 H 22 123/78 95 09/21/21 23:50 115 H 22 95 09/21/21 23:40 115 H 22 96 09/21/21 23:31 121 H 22 119/83 95 09/21/21 23:30 132 H 22 97 09/21/21 23:20 122 H 22 97 09/21/21 23:12 118 H 22 117/74 96 09/21/21 23:10 120 H 22 97 09/21/21 23:01 131 H 28 H 95 09/21/21 23:00 122 H 22 98 09/21/21 22:50 129 H 22 95 09/21/21 22:45 133 H 22 97 09/21/21 22:40 131 H 22 09/21/21 22:38 37.1 C 09/21/21 22:30 123 H 22 110/76 100 09/21/21 22:20 122 H 22 100 09/21/21 22:15 130 H 25 H 105/79 98 09/21/21 22:10 130 H 22 100 09/21/21 22:01 130 H 22 100 09/21/21 22:00 125 H 22 100 09/21/21 21:50 124 H 22 100 Coding Level of Care Code Critical Care 1st 30-74 mins Diagnoses Admitted to intensive care unit Z78.9 Hypotension I95.9 Chronic kidney disease with end stage renal failure on dialysis N18.6; Z99.2 Hypoglycemia E16.2 Lactic acidosis E87.2 PAD (peripheral artery disease) I73.9 Endotracheally intubated Z97.8 Time Spent (min) 37
--- NOTE | 2021-09-22 10:40 | Pharmacy Report ---
Pharmacy [facility] Short Note - Date of Service September 22, 2021 - Assessment & Plan Assessment * 65 year old M receiving vancomycin for possible Staph bacteremia. Zosyn added yesterday for possible HAP / aspiration PNA. * Per ICU rounds - family meeting today at 1200 with anticipated transition to comfort measures at that time * Nasal MRSA positive. Blood culture from 09/18 with 1 of 2 positive for Staph spp (PCR negative for MSSA and MRSA) * HD planned for yesterday but not performed. Not likely to have HD today with anticipated transition to comfort measures Vancomycin * Will dose via level for HD * Level of 60.0 mcg/mL this AM - most likely an error of some sort as this was extraordinarily high given only 1 g of vancomycin was administered yesterday. Repeated lab was significantly different and also close to anticipated at 18.1 mcg/mL. Therefore disregarding previous level of 60.0 mcg/mL as erroneous Plan * No additional vancomycin unless patient receives HD * Random level with AM labs Pharmacy will continue to follow and will adjust dose/frequency as necessary. Thank you.
[2021-09-22] MEDS: PHENYLEPHRINE HCL 20 MG in DEXTROSE 5% 500 ML IV SCH ×2 (11:54→11:55)
[2021-09-22] MEDS ORDERED: GLYCOPYRROLATE 0.2 MG/ML VIAL IV PRN (12:38)
[2021-09-22] MEDS ORDERED: HYDROmorphone INJ 0.5 MG/0.5 ML SYR IV PRN (12:38)
--- NOTE | 2021-09-22 15:37 | Discharge Summary ---
Date of Service September 22, 2021 Admission HPI Per Admitting Provider 65 year old male with ESRD on MWF dialysis, afib, PAD, BPH, GERD, DM, depression, CAD, CVA, anemia who presents from [facility] w/ dark, melena appearing stools. He has had poor PO intake x 3-4 days per facility staff. He refused his PO medications yesterday because of generalized malaise. He did take his Eliquis yesterday. Patient refused dialysis today becase he was not feeling well. Fatigue. No cp, sob, archibald, f/c, urinary sxs, abd pain. + diarrhea and melena since yesterday. Hypoglycemic to 49 at ED arrival, improved after. Last dose of Eliquis PM of 09/17/21. He states he refused some meds yest erday because he did not feel well. Similarly, he refused his dialysis session today because of the same reason. Patient states he makes a small amount of urine at baseline. ED course: 500 mL NSS. ROcephin. PPI and H2 isi. Principal Diagnosis 09/22/21, time of 1315 cause of sepsis, diabetes, renal failure Discharge Exam Patient was seen prior to his where he was intubated ventilated sedated he had acral cyanosis Family agreed for terminal extubation this occurred and he shortly after that at 1315 hrs. Discharge Data Allergies Allergy/AdvReac Type Severity Reaction Status Date / Time No Known Allergies Allergy Verified 09/18/21 18:35 Consultations 09/18/21 18:58 ED Decision to Admit Stat 09/18/21 22:31 Consult Nephrology Routine 09/18/21 22:32 Consult Pharmacist Assistant Routine 09/19/21 12:35 Consult Psychiatry Routine 09/20/21 09:30 Consult Palliative Care Routine Ordered Studies 09/18/21 16:27 CT abd pelvis wo con Stat 09/20/21 10:34 CT head/brain wo con Urgent 09/21/21 08:38 MR brain wo con Urgent Hospital Course (1) : Patient at 1315 hrs. on 09/22/2021 because of sepsis with complicating factors of diabetes and renal failure. Most likely sepsis source could be skin or aspiration pneumonia. Patient did have the respiratory failure listed below prior to and did not survive extubation with family at bedside as this was a terminal extubation event (2) Acute respiratory failure: Patient developed worsening acute respiratory failure requiring intubation to protect airway concern for aspiration pneumonia antibiotics continue mechanical ventilation overseen by ICU team prior to being terminally extubated (3) Chronic kidney disease with end stage renal failure on dialysis: 65 year old male with ESRD on MWF hemodialysis, PAD, BPH, GERD, DM, depression, CAD, CVA, anemia who presents w/ melena, fatigue, and malaise Encephalopathy, suspect 2/2 sepsis versus metabolic with ESRD not resolving 4 blood cultures positive concern for possible infection and sepsis as his initial presentation Prior to admission patient had refused 09/18 dialysis with electrolyte abnormalities - trop 56.4, 89.7 likely demand ischemia from hypotension - TSH 6.358 / fT4 0.48. Increased Synthroid from 75 mcg to 88mcg - MRSA Nare Positive - Random cortisol 27,54 - COVID negative - CXR: small pleural effusions with mild bibasilar atelectasis - CT-A/P: No acute intra-abdominal or intrapelvic abnormality. No urolith or obstructive uropathy. Small pleural effusions with compressive bibasilar atelectasis. Additional bibasilar groundglass densities are suspicious for a mild infectious or inflammatory pneumonitis. Unchanged 2 cm exophytic lesion of the right kidney suggestive of a proteinaceous or hemorrhagic cyst. Blood cultures 1 of 4 blood cultures are positive luminary of staph species Admitting EKG: afib, no st changes DOAC held.Hemoglobin 10.8 from 12.2, admitting 11.7 Patient presented with septic appearance, procalcitonin normal, multiple skin wounds although not overtly infected appearing. On empiric Rocephin, patient with 1 of 4 blood cultures positive on Zosyn and vancomycin ESRD previously on dialysis (4) Acute upper gastrointestinal bleeding: - Held home Eliquis History of GI ulcer 2018, history of gastric bypass Hemoglobin stable at this time, trend and follow for bleeding (5) Lactic acidosis: (6) PAD (peripheral artery disease): Apixaban held, (7) Elevated troponin I level: - demand ischemia given his hypotension and significantly ill state (8) BPH (benign prostatic hyperplasia): - home regimen (9) GERD (gastroesophageal reflux disease): - home regimen (10) Hemodialysis patient: Neurology consulted (11) Diabetes mellitus with diabetic polyneuropathy: ICU hyperglycemia protocol (12) Hypothyroid: - (13) History of non-ST elevation myocardial infarction (NSTEMI): (14) CAD (coronary artery disease): As above (15) History of CVA (cerebrovascular accident): As above (16) History of GI bleed: As above code: Patient made DNR by family in the afternoon of 09/21/2021 prognosis is poor for this patient Total Time Total Time Spent Total Time Spent (In Minutes): It required greater than 30 minutes to prepare this patient for discharge Discharge Plan Discharge Items Patient Disposition: Discharge Diagnosis: 09/22/21 1315 cause of sepsis, diabetes, renal failure Other Date/Time: 09/22/21 13:15 Coding Level of Care Code D/C DAY MANAGEMENT >30 MINS Diagnoses Acute respiratory failure J96.00 Chronic kidney disease with end stage renal failure on dialysis N18.6; Z99.2 Acute upper gastrointestinal bleeding K92.2 Lactic acidosis E87.2 PAD (peripheral artery disease) I73.9 Elevated troponin I level R77.8 BPH (benign prostatic hyperplasia) N40.0 Lower urinary tract symptom presence: symptoms absent GERD (gastroesophageal reflux disease) K21.9 Esophagitis presence: esophagitis presence not specified Hemodialysis patient Z99.2 Diabetes mellitus with diabetic polyneuropathy E11.42 Diabetes mellitus type: type 2 Diabetes mellitus fpc insulin use: without fpc use Hypothyroid E03.9 Hypothyroidism type: acquired History of non-ST elevation myocardial infarction (NSTEMI) I25.2 CAD (coronary artery disease) I25.10 Coronary Disease-Associated Artery/Lesion type: unspecified vessel or lesion type [place] vs. transplanted heart: [place] heart Associated angina: without angina History of CVA (cerebrovascular accident) Z86.73 History of GI bleed Z87.19 R99
[2021-09-22] MEDS ORDERED: PEPTAMEN INTENSE VHP 1.0 CAL 1,000 ML BAG GT SCH (16:00)
--- NOTE | 2021-09-22 16:49 | Electrocardiogram Report ---
Test Reason : Blood Pressure : / mmHG Vent. Rate : 106 BPM Atrial Rate : 129 BPM P-R Int : 000 ms QRS Dur : 086 ms QT Int : 350 ms P-R-T Axes : 000 -53 112 degrees QTc Int : 464 ms Sinus rhythm with 1st degree AV block on wenckebach conduction Left axis deviation Low voltage QRS old inferior WI Abnormal ECG When compared with ECG of 05-MAY-2021 11:05, QRS duration has decreased Nonspecific T wave abnormality, worse in Lateral leads Confirmed by Bay Grubbs ([id number]) on 09/22/2021 4:48:44 PM Referred By: REFERRED SELF Confirmed By:Zaid Grubbs
--- NOTE | 2021-09-22 16:49 | Electrocardiogram Report ---
Test Reason : Blood Pressure : / mmHG Vent. Rate : 082 BPM Atrial Rate : 129 BPM P-R Int : 000 ms QRS Dur : 088 ms QT Int : 402 ms P-R-T Axes : 045 -35 147 degrees QTc Int : 469 ms Sinus tachycardia with 2nd degree A-V block (Mobitz I) Left axis deviation Low voltage QRS Poor R wave progression, consider anterior IN vs. lead placement vs. LVH Inferior infarct , age undetermined Abnormal ECG Confirmed by Bay Grubbs ([id number]) on 09/22/2021 4:49:22 PM Referred By: REFERRED SELF Confirmed By:Zaid Grubbs
--- NOTE | 2021-09-22 17:27 | Death Pronouncement Note ---
Date of Service September 22, 2021 Pronouncement Note Admission Date September 18, 2021 Date and Time of Date of : 09/22/21 Time of : 13:15 Preliminary Cause of (1) End stage renal disease: Additional Comments: Patient ceased to breathe and was asystolic on the media monitor at 1315. I was able to visit with the patient and confirm his with no breath sounds present, no cardiac heart tones present, and his pupils were fixed and dilated. Condolences given to family at bedside. Both ICU physician and hospitalist aware. (2) Sepsis: (3) Diabetes: Additional Data Pronouncement Performed By: Advanced Practice Provider (KYLEIGH) (Irene SANTOS) Family: at bedside Attending/PCP notified?: Yes Attending physician: Rubio Henry MD Was code activated?: No Autopsy requested?: No appeals examiner notified?: No Organ bank notified?: No Advance directives: Yes Coding Level of Care Code None Diagnoses End stage renal disease N18.6 Sepsis A41.9 Diabetes E11.9 Comment Additional time spent during palliative care encounter consultation
[2021-09-22] MEDS ORDERED: PIPERACILLIN/TAZOBACTAM 3.375 GM in DEXTROSE 5% 100 ML IV SCH (18:00)
== END 2021-09-22 13:15 | disposition expired | DRG 871 ==
LOC: ED 16:20 → 1E 22:31 → SUATTDRO 22:31 → 1E 23:05